=== PATIENT | male | born 1975 | race Caucasian/White ===

== ENCOUNTER 2022-06-11 18:49 | Emergency (ER) | payer SELFPAY ==
[2022-06-11 18:53] VITALS: BP 160/98; PULSE 76; RESP 18; TEMP 36.5; O2SAT 100
[2022-06-11 19:10] LABS: Basophils Percent Auto 0.7 % (0.2-1.2); Eosinophils Absolute Auto 0.1 K/mm3 (0-0.3); Eosinophils Percent Auto 1.1 % (0-4.4); Hematocrit 55.3 % (42.0-52.0); Hemoglobin 19.1 g/dL (14.0-18.0); Immature Granulocyte Absolute 0.01 K/mm3 (0.00-0.031); Immature Granulocyte Percent A 0.2 % (0-0.5); Lymphocytes Absolute Auto 1.72 K/mm3 (0.9-3.2); Lymphocytes Percent Auto 30.4 % (18.3-44.2); Mean Corpuscular HGB Conc 34.5 g/dl (32-36); Mean Corpuscular Hemoglobin 35.6 pg (26-34); Monocytes Absolute Auto 0.6 K/mm3 (0.1-0.6); Neutrophils Absolute Auto 3.2 K/mm3 (1.3-6.7); Neutrophils Percent Auto 56.6 % (45.5-73.1); Platelet Count Result 157 k/mm3 (150-375); Red Blood Count 5.37 M/mm3 (4.6-6.20); White Blood Count 5.7 K/mm3 (4.5-10.0)
[2022-06-11 19:20] LABS: Alanine Aminotransferase 138 U/L (6-50); Albumin Level 4.8 g/dL (3.5-5.1); Alkaline Phosphatase 128 U/L (38-126); Anion Gap 13 mmol/L (8-16); Aspartate Amino Transferase 136 U/L (17-59); Bilirubin,Total 1.9 mg/dL (0.2-1.3); Blood Urea Nitrogen 6 mg/dL (9-20); Carbon Dioxide 25 mmol/L (22-30); Chloride 97 mmol/L (98-107); Estimated CRCL calculation 89 ml/min; Estimated Glomerular Filt Rate > 60; Glucose 107 mg/dL (65-110); Lipase 54 U/L (23-300); Sodium 135 mmol/L (137-145)
--- NOTE | 2022-06-11 20:26 | PC.NURSE ---
Pt ambulatory to intake desk without difficulty and states he will just come back tomorrow . Speech clear. No s/s of distress. Seen exiting ED toward parking lot with steady, even, unassisted gait.
== END 2022-06-11 20:26 | disposition left against medical advice (07) ==
PROVIDERS: Emergency Provider Emergency Medicine
DX: R10.9 Unspecified abdominal pain (principal)
CPT/HCPCS: 36415; 80053; 83690; 85025; 99199

== ENCOUNTER 2022-06-12 15:41 | Emergency (ER) | payer BC, SELFPAY ==
--- NOTE | ~2022-06-12 | CT_ITS ---
EXAMINATION: CT abdomen pelvis w con DATE: 06/12/2022 17:53 INDICATION: Abdominal pain TECHNIQUE: Computed tomography (CT) of the abdomen and pelvis was performed with 100 CC Omnipaque 350 intravenous contrast. Automated exposure control and iterative reconstruction technique were employe d. Exam dose: 436.24 mGy-cm total exam DLP. COMPARISON: None. FINDINGS: The lung bases are clear. Normal heart size. No pericardial or pleural effusion. Diffuse hepatic steatosis. No hepatic space-occupying mass lesion. The gallbladder is present. No gal lbladder wall thickening or pericholecystic fluid or fat stranding. No bile duct or pancreatic duct d ilatation. No pancreatic mass lesion or calcification. Normal splenic size. Normal morphology of the adrenal glands. Very small lower pole right renal cortical cyst. Otherwise no renal mass lesion or urinary tract calc ulus or hydroureteronephrosis. There is moderate prostate enlargement and mild calcification. There is mild to moderate diffuse thic kening of the urinary bladder wall. Normal appendix. No bowel obstruction or intraperitoneal free air. Normal caliber of the abdominal aorta. No intraperitoneal or retroperitoneal or pelvic mass lesion or adenopathy or ascites. Status post anterior and interbody surgical spinal fusion from L3-S1. No suspicious osteolytic or osteoblastic lesions are noted. IMPRESSION: Hepatic steatosis Very small lower pole right renal cortical cyst Normal appendix Moderate prostate enlargement and calcification with associated mild to moderate thickening of the ur inary bladder wall, likely due to outlet obstruction from prostatomegaly Status post anterior and interbody surgical spinal fusion from L3-S1 Reviewed, dictated and finalized at [facility]. Reviewed, dictated and finalized at location [facility]. IMPRESSION: Hepatic steatosis Very small lower pole right renal cortical cyst Normal appendix Moderate prostate enlargement and calcification with associated mild to moderat e thickening of the urinary bladder wall, likely due to outlet obstruction from prostatomegaly Status post anterior and interbody surgical spinal fusion from L3-S1
[2022-06-12 15:43] VITALS: BP 174/99; PULSE 69; RESP 16; TEMP 36.5; O2SAT 100
[2022-06-12 16:04] VITALS: BP 156/113; PULSE 72; RESP 20; O2SAT 99
--- NOTE | 2022-06-12 16:14 | ED.ABDPAIN ---
HPI - Abdominal Pain General Chief Complaint: Abdominal Pain Stated Complaint: abd pain n/v/d, brown, sore throat, cough, fatigue Time Seen by Provider: 06/12/22 16:02 History of Present Illness HPI narrative: 47-year-old male presents to the emergency room for evaluation of generalized abdominal pain with nonbilious nonbloody vomiting and diarrhea for 2 weeks. Patient states that he was seen at an outside emergency room 10 days ago where he was diagnosed with gastroenteritis. Patient's been taking [id number] antidiarrheals, continues to have loose stools around them. Patient is also complaining of a generalized malaise and headaches. Denies any blood in his stool. Denies fever Related Data Home Medications Medication Instructions Recorded Confirmed albuterol 90 mcg/actuation aerosol 90 mcg inhalation TID 06/12/22 06/12/22 inhaler alprazolam 0.5 mg tablet 0.5 mg PO TID 06/12/22 06/12/22 dicyclomine 10 mg capsule 10 mg PO PRN PRN Cramps 06/12/22 06/12/22 Allergies Allergy/AdvReac Type Severity Reaction Status Date / Time No Known Allergies Allergy Verified 06/12/22 15:50 Review of Systems Review of Systems: CONSTITUTIONAL: Denies fever, chills, or sweats. EYES: Denies visual changes, redness, or discharge. ENT: Denies rhinorrhea, congestion, sore throat, or otalgia. CARDIOVASCULAR: Denies chest pain, palpitations, or edema. RESPIRATORY: Denies cough or dyspnea. GASTROINTESTINAL: Reports abdominal pain, nausea, vomiting, and diarrhea. GENITOURINARY: Denies dysuria or hematuria. SKIN: Denies rash or itching. MUSCULOSKELETAL: Denies back pain, joint pain, or myalgia. NEUROLOGIC: Denies headache, numbness, dizziness, or weakness. PSYCHIATRIC: Denies anxiety or depression. Exam Narrative: GENERAL: Well-appearing, well-nourished, no physical limitations, and in no acute distress. HEAD: Normocephalic, atraumatic. EYES: Conjunctivae normal, PERRLA and EOMI. CHEST: Clear to auscultation. No respiratory distress. No wheezes rales or rhonchi. No tenderness. HEART: Regular rate and rhythm. No murmur heard. Normal peripheral pulses. ABDOMEN: Soft, upper abdominal tenderness, nondistended, normal active bowel sounds. BACK: No CVA tenderness EXTREMITIES: Normal range of motion. No edema. No clubbing or cyanosis SKIN: Warm, dry, no rash. No noted wounds NEURO: No focal deficits. Alert and oriented x3. MAEW. CN's II-XI intact bilaterally, normal gait PSYCH: Cooperative. Normal mood and affect. Course Vital Signs Vital signs: Vital Signs Temperature 36.5 C 06/12/22 15:43 Pulse Rate 69 06/12/22 15:43 Respiratory Rate 16 06/12/22 15:43 Blood Pressure 174/99 H 06/12/22 15:43 Pulse Oximetry 100 06/12/22 15:43 Oxygen Delivery Room Air 06/12/22 15:43 Temperature 36.5 C 06/12/22 15:43 Pulse Rate 90 06/12/22 17:16 Respiratory Rate 18 06/12/22 17:16 Blood Pressure 154/111 H 06/12/22 17:16 Pulse Oximetry 99 06/12/22 17:16 Oxygen Delivery Room Air 06/12/22 15:43 MDM - Abdominal Pain Lab Data Result diagrams: 06/12/22 16:21 06/12/22 17:05 Labs: Lab Results 06/12/22 06/12/22 06/12/22 Range/Units 16:01 16:21 17:05 WBC 5.4 (4.5-10.0) K/mm3 RBC 5.20 (4.6-6.20) M/mm3 Hgb 18.3 H (14.0-18.0) g/dL Hct 53.4 H (42.0-52.0) % MCV 102.7 H (80-100) fl MCH 35.2 H (26-34) pg MCHC 34.3 (32-36) g/dl RDW 13.7 (11.5-14.5) % Plt Count 144 L (150-375) k/mm3 MPV 10.8 H (7.4-10.4) fl Immature Gran % (Auto) 0.4 (0-0.5) % Neut % (Auto) 69.2 (45.5-73.1) % Lymph % (Auto) 19.0 (18.3-44.2) % Baldwin % (Auto) 8.5 (2.6-8.5) % Eos % (Auto) 2.2 (0-4.4) % Baso % (Auto) 0.7 (0.2-1.2) % Lymph # (Auto) 1.03 (0.9-3.2) K/mm3 Baldwin # (Auto) 0.5 (0.1-0.6) K/mm3 Eos # (Auto) 0.1 (0-0.3) K/mm3 Baso # (Auto) 0.0 (0.0-0.1) K/mm3 Abs Immat Gran (auto) 0.02 (0.00-0.031) K/mm3 Absolute
[2022-06-12 16:18] LABS: Appearance Urine Slightly Cloudy (Clear); Bilirubin Urine 2+ (Negative); Blood Urine Negative (Negative); Glucose Urine UA Negative (Negative); Ketones Urine Trace mg/dL (Negative); Leukocyte Esterase Ur Negative LEU/UL (Negative); Nitrate Urine Positive (Negative); Protein Urine Negative (Negative)
[2022-06-12] MEDS: SODIUM CHLORIDE 0.9% IV 1,000 ML 999 ML IV CONT (16:20)
[2022-06-12] MEDS: DICYCLOMINE HCL INJ 20 MG/2 ML VIAL IM (16:20)
[2022-06-12] MEDS: ONDANSETRON INJ 4 MG/2 ML VIAL IV PUSH (16:20)
[2022-06-12 16:21] LABS: Mucus Urine Heavy /lpf; Squamous Epithelial Cell Urine Occasional /hpf (Few); WBC Urine 0-3 /hpf
[2022-06-12 16:23] LABS: Add Urine Microscopic? YES; Color Urine Dark Yellow (Yellow)
[2022-06-12 16:48] LABS: Basophils Percent Auto 0.7 % (0.2-1.2); Eosinophils Absolute Auto 0.1 K/mm3 (0-0.3); Eosinophils Percent Auto 2.2 % (0-4.4); Hematocrit 53.4 % (42.0-52.0); Hemoglobin 18.3 g/dL (14.0-18.0); Immature Granulocyte Absolute 0.02 K/mm3 (0.00-0.031); Immature Granulocyte Percent A 0.4 % (0-0.5); Lymphocytes Absolute Auto 1.03 K/mm3 (0.9-3.2); Mean Corpuscular HGB Conc 34.3 g/dl (32-36); Mean Corpuscular Hemoglobin 35.2 pg (26-34); Mean Corpuscular Volume 102.7 fl (80-100); Mean Platelet Volume 10.8 fl (7.4-10.4); Monocytes Absolute Auto 0.5 K/mm3 (0.1-0.6); Monocytes Percent Auto 8.5 % (2.6-8.5); Neutrophils Absolute Auto 3.8 K/mm3 (1.3-6.7); Neutrophils Percent Auto 69.2 % (45.5-73.1); Platelet Count Result 144 k/mm3 (150-375); Red Cell Distribution Width 13.7 % (11.5-14.5); White Blood Count 5.4 K/mm3 (4.5-10.0)
[2022-06-12 17:16] VITALS: BP 154/111; PULSE 90; RESP 18; O2SAT 99
[2022-06-12 17:23] VITALS: BP 145/98; O2SAT 97
[2022-06-12 17:30] LABS: Alanine Aminotransferase 91 U/L (6-50); Alkaline Phosphatase 90 U/L (38-126); Anion Gap 8 mmol/L (8-16); Aspartate Amino Transferase 81 U/L (17-59); Bilirubin,Total 1.4 mg/dL (0.2-1.3); Blood Urea Nitrogen 9 mg/dL (9-20); Carbon Dioxide 28 mmol/L (22-30); Chloride 97 mmol/L (98-107); Estimated CRCL calculation 81 ml/min; Estimated Glomerular Filt Rate > 60; Glucose 104 mg/dL (65-110); Lipase 42 U/L (23-300); Potassium 4.3 mmol/L (3.4-5.0); Sodium 133 mmol/L (137-145)
[2022-06-12 17:32] VITALS: BP 141/99; O2SAT 97
[2022-06-12 18:53] VITALS: O2SAT 97
[2022-06-12 18:57] LABS: Prostate Specific Antigen 0.9 ng/mL (< OR = 4.0)
== END 2022-06-12 19:03 | disposition home or self-care (01) ==
PROVIDERS: Family Medicine; Emergency Provider Nurse Practitioner Family
DX: R19.7 Diarrhea, unspecified (principal); N39.0 Urinary tract infection, site not specified; N40.0 Benign prostatic hyperplasia without lower urinary tract symptoms
CPT/HCPCS: 36415; 74177; 80053; 81001; 83690; 84153; 85025; 96361; 96372; 96374; 99284; J0500; J2405; J7030; Q9967

== ENCOUNTER 2022-08-08 17:35 | Emergency (ER) | payer BC, SELFPAY ==
[2022-08-08 17:48] VITALS: BP 145/102; PULSE 98; RESP 16; TEMP 37.3; O2SAT 97
--- NOTE | 2022-08-08 18:24 | ED.SKABFB ---
HPI - Skin/Abscess/Foreign Bdy General Chief complaint: Skin/Abscess/Foreign Body Stated complaint: rash on back legs Time Seen by Provider: 08/08/22 17:55 Source: patient, RN notes reviewed and old records reviewed Mode of arrival: ambulatory Limitations: no limitations History of Present Illness HPI narrative: 47-year-old male who presents to [facility] care with complaints of rash to the back of his legs bilaterally after playing disc ball in [place] last Saturday. Patient has red raised rash which is irritated and itching and burning has some small vesicles noted in rash and weeping. Patient has not taken any OTC medications for his symptoms. MD complaint: rash Onset (ago): day(s) (3) Severity scale (1-10): 7 Related Data Home Medications Medication Instructions Recorded Confirmed albuterol 90 mcg/actuation aerosol 90 mcg inhalation TID 06/12/22 08/08/22 inhaler alprazolam 0.5 mg tablet 0.5 mg PO TID 06/12/22 08/08/22 lisinopril 10 mg tablet 10 mg PO DAILY 08/08/22 08/08/22 Allergies Allergy/AdvReac Type Severity Reaction Status Date / Time No Known Allergies Allergy Verified 08/08/22 17:55 Review of Systems Review of Systems: CONSTITUTIONAL: Denies fever, chills, or sweats. CARDIOVASCULAR: Denies chest pain, palpitations, or edema. RESPIRATORY: Denies cough or dyspnea. SKIN: Reports red rash to behind knees and onto the posterior aspects of the thighs which he stated itching MUSCULOSKELETAL: Denies joint pain or myalgia. NEUROLOGIC: Denies headache, numbness, or weakness. All systems reviewed & are unremarkable except as noted in HPI and below PMFSH Past Medical History Medical History (Updated 08/09/22 @ 08:14 by Madisyn Johnson NP) Anxiety Social History Social History (Updated 08/09/22 @ 08:14 by Madisyn Johnson NP) Smoking packs per day: 0.5 Smoking cigarettes per day: 10.0 Years smoked: 25 Smoking pack-years: 12.50 Smoking status: Current every day smoker Alcohol intake: current Alcohol use details: social Substance use type: does not use Living arrangements: with family Gender identity (if verbalized by the patient): Male Comments At time of signature, agree with nursing past medical, surgical, social and family history. There is no relevant family history pertinent to the presenting complaint Exam Narrative: GENERAL: Well-appearing, well-nourished, and in no acute distress. HEAD: Normocephalic, atraumatic. EYES: PERRLA, conjunctivae clear, and EOMI. ENT: Mucous membranes moist. Oropharynx without edema, erythema or lesions. NECK: Supple. No lymphadenopathy CHEST: Clear to auscultation. No respiratory distress.SAO2 98% on room air HEART: Regular rate and rhythm. SKIN: Warm, dry.? Patches of erythema and edema small vesicles noted to rash behind his knees and on posteior thighs NEURO:? Alert and oriented x3. PSYCH: Normal mood and affect Course Course Emergency Course: Patient is aware of diagnosis, understands and agrees to treatment plan.? Anticipatory guidance given.? Patient agrees to follow-up as directed and is aware of reasons to seek care at the emergency department. Portions of this record may have been created with voice recognition software Level of Care: Express Care Visit Vital Signs Vital signs: Vital Signs Temperature 37.3 C 08/08/22 17:48 Pulse Rate 98 08/08/22 17:48 Respiratory Rate 16 08/08/22 17:48 Blood Pressure 145/102 H 08/08/22 17:48 Pulse Oximetry 97 08/08/22 17:48 Temperature 37.3 C 08/08/22 17:48 Pulse Rate 82 08/08/22 18:35 Respiratory Rate 16 08/08/22 18:35 Blood Pressure 145/98 H 08/08/22 18:35 Pulse Oximetry 98 08/08/22 18:35 Oxygen Delivery Room Air 08/08/22 18:35 Reviewed MDM - Skin/Abscess/Foreign Bdy MDM Narrative Medical decision making narrative: Does not appear at this time to be erythema multiforme, bullous, SJS, TEN; no evidence at this time to sugge
[2022-08-08 18:35] VITALS: BP 145/98; PULSE 82; RESP 16; O2SAT 98
== END 2022-08-08 18:35 | disposition home or self-care (01) ==
PROVIDERS: Emergency Provider Registered Nurse
DX: L25.9 Unspecified contact dermatitis, unspecified cause (principal); F17.210 Nicotine dependence, cigarettes, uncomplicated; F41.9 Anxiety disorder, unspecified
CPT/HCPCS: 99213; G0463

== ENCOUNTER 2023-02-23 11:53 | Emergency (ER) | payer BC, SELFPAY ==
--- NOTE | ~2023-02-23 | XR_ITS ---
EXAMINATION: XR tibia fibula LT 2V INDICATION: Left leg pain TECHNIQUE: Two views of the left tibia and fibula are obtained on three radiographs. COMPARISON: None available FINDINGS: Bone alignment is normal. There is no acute fracture. There is mild anterior soft tissue sw elling of the leg. There appears to be an old fracture of the lateral malleolus. IMPRESSION: 1. No acute osseous abnormality. Reviewed, dictated and finalized at location A.
--- NOTE | 2023-02-23 11:56 | ED.LOWEXIN ---
HPI - Extremity Injury (Lower) General Chief Complaint: Extremity Injury, Lower Stated Complaint: INJURED L LEG Time Seen by Provider: 02/23/23 11:56 Source: patient Mode of arrival: ambulatory Limitations: no limitations History of Present Illness HPI Narrative: Tyree is a 47-year-old male patient presenting to the clinic today with complaints of a left leg injury. He reports he was playing Frisbee on Saturday and slipped and fell down a storm drain. Has abrasion/infected wound to the left lateral leg with redness going into the ankle. Has tenderness to palpation over the ankle. Does have some old bruising to the left heel without tenderness. Left distal leg is swollen and painful. He denies any fever chills Related Data Home Medications Medication Instructions Recorded Confirmed albuterol 90 mcg/actuation aerosol 90 mcg inhalation TID 06/12/22 02/23/23 inhaler alprazolam 0.5 mg tablet 0.5 mg PO TID 06/12/22 02/23/23 lisinopril 10 mg tablet 10 mg PO DAILY 08/08/22 02/23/23 Allergies Allergy/AdvReac Type Severity Reaction Status Date / Time No Known Allergies Allergy Verified 02/23/23 12:12 Review of Systems Review of Systems: Pertinent positives per HPI. Patient denies any fever, chills, rash, headache, visual changes, dizziness, cough, runny nose, sore throat, shortness of breath, chest pain, palpitations, nausea, vomiting, diarrhea, constipation, abdominal pain, or any urinary issues. [facility] Past Medical History Medical History Anxiety Social History Social History Smoking packs per day: 0.5 Smoking cigarettes per day: 10.0 Years smoked: 25 Smoking pack-years: 12.50 Smoking status: Current every day smoker Alcohol intake: current Alcohol use details: social Substance use type: does not use Living arrangements: with family Gender identity (if verbalized by the patient): Male Comments At the time of my signature, I reviewed and agree with the nursing past medical, surgical, social, and family history. There is no relevant family history pertinent to the patient complaint. Exam Narrative: General: Well-developed, well nourished, in no apparent distress Head: Normocephalic, atraumatic. Cardio: Regular rate and rhythm, s1 and s2 normal, no murmur appreciated. Resp: Clear to auscultation bilaterally, no rhonchi, rales, wheezing or rubs. Musculoskeletal: No deformity, 8 x 6 cm abrasion with redness and swelling, tender to palpation over wound and also over the lateral left ankle, old settling bruising noted to the left lateral heel, grossly normal range of motion, muscle strength strong and equal, peripheral pulse strong, no cyanosis, normal gait and station Course Course Emergency Course: Portions of this record may have been created with voice recognition software. Level of Care: Express Care Visit Vital Signs Vital signs: Vital Signs Temperature 37.2 C 02/23/23 12:06 Pulse Rate 110 H 02/23/23 12:06 Respiratory Rate 16 02/23/23 12:06 Blood Pressure 116/98 H 02/23/23 12:06 Pulse Oximetry 99 02/23/23 12:06 Temperature 37.2 C 02/23/23 12:06 Pulse Rate 110 H 02/23/23 12:06 Respiratory Rate 16 02/23/23 12:06 Blood Pressure 116/98 H 02/23/23 12:06 Pulse Oximetry 99 02/23/23 12:06 Vital signs reviewed MDM - Extremity Injury (Lower) MDM Narrative Medical decision making narrative: At the time of visit patient is resting comfortably on the exam table. X-ray of the left tib-fib is negative for any fracture. Does have an old-appearing fracture over the lateral malleolus. Tdap injection given in the clinic today. I suspect patient has a wound infection with cellulitis. Will send in prescription for clindamycin. Supportive measures were discussed with the patient he voiced understanding discharge instructions agrees to treatme
[2023-02-23 12:06] VITALS: BP 116/98; PULSE 110; RESP 16; TEMP 37.2; O2SAT 99
[2023-02-23] MEDS: TETANUS,DIPHTHERIA,AC PERTUSSIS ADULT (0.5 ML) BOOSTRIX IM (12:48)
== END 2023-02-23 13:03 | disposition home or self-care (01) ==
PROVIDERS: Emergency Provider Nurse Practitioner Family
DX: S80.812A Abrasion, left lower leg, initial encounter (principal); L03.116 Cellulitis of left lower limb; W17.1XXA Fall into storm drain or manhole, initial encounter; Y93.74 Activity, frisbee; Z23 Encounter for immunization; F41.9 Anxiety disorder, unspecified; F17.210 Nicotine dependence, cigarettes, uncomplicated
CPT/HCPCS: 73590; 90471; 90715; 99213; G0463

== ENCOUNTER 2023-02-25 12:21 | Observation (INO) | payer BC, SELFPAY ==
[2023-02-25] VITALS (9 sets, daily range): BP systolic 116–139; BP diastolic 75–101; PULSE 70–110; RESP 14–20; TEMP 36.1–37.2; O2SAT 94–100; BMI 25.1
--- NOTE | ~2023-02-25 | XR_ITS ---
EXAM: XR tibia fibula LT 2V, XR foot LT min 3V DATE: 02/26/2023 14:02 HISTORY: Trauma, increased pain . COMPARISON: 02/23/2023. FINDINGS: Normal mineralization. No acute fracture or dislocation. No lytic or blastic lesion. Ossif ic fragment at the tip of the lateral malleolus, without significant overlying soft tissue swelling, likely old avulsion fracture. Joint spaces are maintained. No erosion or periosteal change. Soft tiss ues within normal limits. IMPRESSION: No acute osseous finding in the left tibia, fibula, or foot. Reviewed, dictated and finalized at location K. IMPRESSION: No acute osseous finding in the left tibia, fibula, or foot.
--- NOTE | ~2023-02-25 | US_ITS ---
EXAMINATION: US venous doppler [facility] DATE: 02/25/2023 14:10 INDICATION: Lower limb swelling and redness TECHNIQUE: Huang scale images without and with compression and Doppler images of the left lower extrem ity veins were obtained. COMPARISON: None FINDINGS: The left common femoral vein, profunda femoral vein, femoral vein, popliteal vein, peroneal trunk, posterior tibial veins, and greater saphenous vein are patent. IMPRESSION: 1. Patent left lower extremity veins. No evidence of deep venous thrombosis. Reviewed, dictated and finalized at location B.
--- NOTE | ~2023-02-25 | MR_ITS ---
MRI of the left ankle Clinical history: Osteomyelitis, abscess Technique: Coronal proton-density and proton-density fat-sat images, axial proton-density and proton- density fat-sat images, and sagittal proton-density and proton-density fat-sat images were acquired. Following intravenous administration of 15 cc MultiHance gadolinium, T1-weighted fat-sat imaging was performed in the axial, coronal, and sagittal planes. Findings: Syndesmotic ligaments are intact. Anterior and posterior talofibular ligaments appear intac t. Calcaneofibular ligament is intact. Deltoid ligament is intact. Medial flexor tendons, peroneal tendons, anterior extensor tendons, and Achilles tendon are intact. No osteochondral lesion of the talar dome. Bone marrow signals are unremarkable. Joint spaces are pre served. No significant joint effusion. Plantar fascia is intact. There is extensive nonspecific edema in Hoffa's fat pad. There is also subc utaneous soft tissue edema about the lateral aspect of the ankle. No suspicious postcontrast enhancement seen. Impression: Nonspecific soft tissue edema throughout Hoffa's fat pad and in the lateral subcutaneous soft tissues . No abscess or focal fluid collection evident. No evidence for osteomyelitis. Reviewed, dictated and finalized at [facility]. Impression: Nonspecific soft tissue edema throughout Hoffa's fat pad and in the lateral sub cutaneous soft tissues. No abscess or focal fluid collection evident. No evidence for osteomyelitis.
[2023-02-25 13:48] LABS: Basophils Absolute Auto 0.1 K/mm3 (0.0-0.1); Basophils Percent Auto 0.9 % (0.2-1.2); Eosinophils Absolute Auto 0.1 K/mm3 (0-0.3); Eosinophils Percent Auto 1.6 % (0-4.4); Hematocrit 43.3 % (42.0-52.0); Hemoglobin 15.6 g/dL (14.0-18.0); Immature Granulocyte Absolute 0.02 K/mm3 (0.00-0.031); Immature Granulocyte Percent A 0.4 % (0-0.5); Lymphocytes Absolute Auto 1.34 K/mm3 (0.9-3.2); Lymphocytes Percent Auto 23.5 % (18.3-44.2); Mean Corpuscular Hemoglobin 35.8 pg (26-34); Mean Corpuscular Volume 99.3 fl (80-100); Mean Platelet Volume 10.1 fl (7.4-10.4); Monocytes Absolute Auto 0.7 K/mm3 (0.1-0.6); Monocytes Percent Auto 12.1 % (2.6-8.5); Neutrophils Absolute Auto 3.5 K/mm3 (1.3-6.7); Neutrophils Percent Auto 61.5 % (45.5-73.1); Platelet Count Result 171 k/mm3 (150-375); Red Blood Count 4.36 M/mm3 (4.6-6.20); Red Cell Distribution Width 13.7 % (11.5-14.5); White Blood Count 5.7 K/mm3 (4.5-10.0)
[2023-02-25 13:56] LABS: Lactic Acid Reflex 1.5 mmol/L (0.7-2.0)
[2023-02-25 13:57] LABS: Alanine Aminotransferase 88 U/L (6-50); Albumin Level 4.2 g/dL (3.5-5.1); Alkaline Phosphatase 126 U/L (38-126); Anion Gap 5 mmol/L (8-16); Aspartate Amino Transferase 105 U/L (17-59); Bilirubin,Total 1.3 mg/dL (0.2-1.3); Blood Urea Nitrogen 10 mg/dL (9-20); Calcium 8.9 mg/dL (8.4-10.2); Carbon Dioxide 29 mmol/L (22-30); Chloride 100 mmol/L (98-107); Estimated CRCL calculation 99 ml/min; Estimated Glomerular Filt Rate > 60; Glucose 97 mg/dL (65-110); Potassium 3.6 mmol/L (3.4-5.0); Sodium 134 mmol/L (137-145)
[2023-02-25] MEDS: SODIUM CHLORIDE 0.9% IV 1,000 ML 999 ML IV CONT (14:19)
[2023-02-25] MEDS: KETOROLAC 15 MG/ML VIAL (*BKC) IV PUSH ×2 (14:19→21:16)
--- NOTE | 2023-02-25 14:28 | ED.LOWEXIN ---
HPI - Extremity Injury (Lower) General Chief Complaint: Extremity Injury, Lower Stated Complaint: infection to left leg Time Seen by Provider: 02/25/23 13:24 History of Present Illness HPI Narrative: Patient is a 47-year-old male presenting with left lower extremity pain. Patient states that approximately 9 days ago he sustained an injury to his left lower extremity. States that he has a large abrasion. States that he went to urgent care and x-rays were done which showed no fractures. Patient states that the wound has been slow to heal. States that he went back to urgent care over the weekend due to spreading redness and he was started on clindamycin. States that he has been taking it as prescribed and trying to elevate his extremity is much as possible. States that unfortunately the redness continues to spread and his pain continues to worsen. He was advised to come to the ER if his symptoms worsened so he came in for evaluation. He denies fevers, headache, chest pain, shortness of breath, cough, abdominal pain, vomiting, diarrhea, dysuria Related Data Home Medications Medication Instructions Recorded Confirmed albuterol 90 mcg/actuation aerosol 90 mcg inhalation TID PRN 06/12/22 02/25/23 inhaler Shortness Of Breath alprazolam 0.5 mg tablet 0.5 mg PO TID PRN Anxiety 06/12/22 02/25/23 lisinopril 10 mg tablet 10 mg PO DAILY 08/08/22 02/25/23 Allergies Allergy/AdvReac Type Severity Reaction Status Date / Time No Known Allergies Allergy Verified 02/25/23 12:58 Review of Systems Review of Systems: All systems reviewed & are unremarkable except as noted in HPI and below PMFSH Past Medical History Medical History (Updated 02/28/23 @ 21:48 by Iris Mg MD) Anxiety Asthma Hepatic steatosis Noted on CT scan 06/2022 Hypertension Tobacco abuse Surgical History Surgical History (Updated 02/26/23 @ 00:55 by Linda Pitts NP) H/O knee surgery H/O spinal fusion Family History Family History (Updated 02/26/23 @ 00:56 by Linda Pitts NP) Unknown No problems noted. Other Unknown family medical history Social History Social History (Updated 02/26/23 @ 00:57 by Linda Pitts NP) Social History: The patient lives with his significant other. He has 4 children. 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 Code status full code Smoking packs per day: 1 Smoking cigarettes per day: 20.0 Years smoked: 30 Smoking pack-years: 30.00 Smoking status: Current every day smoker Tobacco type: cigarettes Alcohol intake: current Drinks per week: 20 Alcohol use details: social Substance use: current Substance use type: marijuana Lack of Transportation: No Lack of Food: Never True Current Housing: I Have Housing Concerned About Future Housing: No Difficulty Paying Gas/Electric Bills: No Difficulty Paying for Meds: No Currently Unemployed: No Education: Associate Degree Difficulty w/ Childcare or Family Care: No Living arrangements: with family Gender identity (if verbalized by the patient): Male Spiritual care concerns: No Exam Narrative: GENERAL: nontoxic, in no acute distress, pleasant and cooperative HEAD: Normocephalic, atraumatic. EYES: PERRLA and EOMI. ENT: Nares clear, no rhinorrhea or epistaxis. Mucous membranes moist. NECK: Supple. CHEST: Clear to auscultation. No respiratory distress. HEART: Regular rate and rhythm. Normal peripheral pulses. ABDOMEN: Soft, nontender, nondistended EXTREMITIES: Normal range of motion. No edema. SKIN: 4 x 3 cm abrasion lateral left lower extremity with surrounding erythema and tenderness, no fluctuance, no crepitus; erythema does appear to be extending down to his foot NEURO: No focal deficits. Alert and oriented x3. PSYCH: Normal mood and affect. Course Vital Signs Vital signs: Vital Signs Temperature 98.9 F 02/25/23 12:23 Pulse Rate 110 H 02/25/23 12:23 Respiratory Rate 18 0
--- NOTE | 2023-02-25 17:08 | ADMGEN ---
This patient, Tyree Rodriguez, was admitted to [facility] Surg Room 330-02. Patient/family oriented to hospital policies and general routines including ID bracelet, bed and alarms, visiting hours, pain management, procedures, bathroom and other care routines, personal items, smoking policy, room service/diet, and visiting hours. Information on how to activate the Rapid Response Team has been discussed. Patient/Family are encouraged to report perceived risks to care and to ask questions if they do not understand what they are told or what they should do.
[2023-02-25] MEDS: fentaNYL CITRATE INJ (*CRX) 100 MCG/2 ML VIAL 25 MCG IV PUSH (18:39)
--- NOTE | 2023-02-25 20:28 | PM.IMHP ---
H&P: HPI History of Present Illness Date/Time: 02/25/23 20:28 Chief Complaint: Infection to lower extremity Narrative: This is a 47-year-old male patient came to the emergency room with left lower extremity pain. The patient stated that he had an injury proximally 9 days ago when he was playing outside with his kids the patient stepped into a when he called the manhole. He abraded his left outer lower extremity leg. The patient stated that he went to urgent care and x-rays were performed at that time and he was told that he has no fractures. The patient stated that he was cleaning it every day and putting a triple antibiotic on it and wrapping it. The patient stated that he left the dressing on for several days. The patient stated that his wound has been slow to heal. The patient went back to urgent care over the weekend because the redness was increasing and at that time the patient was started on a on clindamycin. The patient has been taking the prescribed antibiotics and elevating his left lower extremity. The redness continued and the pain continued to get worse. The patient was advised to go to the emergency room if his symptoms were worse. His symptoms are worse with ambulating. The patient stated that his left outer foot is now bruise and the bruising was not initially there. Resting the foot helps some but he has tenderness to the lower extremity. Patient denies any fever chills. The patient was given IV fluids, Toradol, Tylenol, vancomycin and Rocephin. His white count is normal. Sodium is slightly low at 134. The patient is being admitted to observation status on the date of service of 02/25/2023. Review of Systems Review of Systems: All systems reviewed & are unremarkable except as noted in HPI and below Constitutional: Constitutional: Reports as per HPI and Reports no additional constitutional complaints Eyes: Eyes: Reports as per HPI and Reports no additional eye complaints ENT: Reports system reviewed and no additional complaints, except as documented and Reports Normal hearing present Cardiovascular: Cardiovascular: Reports no additional cardiovascular complaints Respiratory: Respiratory: Reports no additional respiratory complaints and Reports no additional respiratory complaints Gastrointestinal: Gastrointestinal: Reports as per HPI and Reports no additional gastrointestinal complaints Musculoskeletal: Musculoskeletal: Reports no additional musculoskeletal complaints Integumentary/Breasts: Skin/Breast: Reports system reviewed and no additional complaints, except as docu and Reports as per HPI Neurologic: Reports system reviewed and no additional complaints, except as documented, Reports as per HPI and Reports Normal hearing present Psychiatric: Psychiatric: Reports no additional psychiatric complaints and Reports as per HPI Endocrine: Endocrine: Reports no additional endocrine complaints Hematologic/Lymphatic: Hematologic/Lymphatic: Reports no additional hematologic/lymphatic complaints Allergic/Immunologic: Allergic/Immunologic: Reports no additional allergic/immunologic complaints [facility] Past Medical History Medical History (Updated 02/26/23 @ 01:06 by Linda Pitts NP) Anxiety Asthma Hypertension Tobacco abuse Surgical History Surgical History (Updated 02/26/23 @ 00:55 by Linda Pitts NP) H/O knee surgery H/O spinal fusion Family History Family History (Updated 02/26/23 @ 00:56 by Linda Pitts NP) Unknown No problems noted. Other Unknown family medical history Social History Social History (Updated 02/26/23 @ 00:57 by Linda Pitts NP) Social History: The patient lives with his significant other. He has 4 children. 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 Code status full code Smoking packs per day: 1 Smoking cigarettes per day: 20.0 Years smoked: 30 Smoking pack-years: 30.00 Smoking status: Current every day smoker Tobacco type: cigar
[2023-02-26] MEDS: fentaNYL CITRATE INJ (*CRX) 100 MCG/2 ML VIAL 25 MCG IV PUSH ×2 (01:58→07:02)
[2023-02-26 05:57] VITALS: BP 130/92; PULSE 72; RESP 14; TEMP 36.4; O2SAT 98
[2023-02-26 06:35] LABS: Basophils Absolute Auto 0.1 K/mm3 (0.0-0.1); Basophils Percent Auto 0.9 % (0.2-1.2); Eosinophils Absolute Auto 0.1 K/mm3 (0-0.3); Eosinophils Percent Auto 1.8 % (0-4.4); Hematocrit 42.3 % (42.0-52.0); Hemoglobin 14.7 g/dL (14.0-18.0); Immature Granulocyte Absolute 0.03 K/mm3 (0.00-0.031); Immature Granulocyte Percent A 0.5 % (0-0.5); Lymphocytes Absolute Auto 1.26 K/mm3 (0.9-3.2); Lymphocytes Percent Auto 22.5 % (18.3-44.2); Mean Corpuscular HGB Conc 34.8 g/dl (32-36); Mean Corpuscular Hemoglobin 35.9 pg (26-34); Mean Corpuscular Volume 103.2 fl (80-100); Monocytes Absolute Auto 0.6 K/mm3 (0.1-0.6); Monocytes Percent Auto 11.4 % (2.6-8.5); Neutrophils Absolute Auto 3.5 K/mm3 (1.3-6.7); Neutrophils Percent Auto 62.9 % (45.5-73.1); Platelet Count Result 155 k/mm3 (150-375); Red Cell Distribution Width 13.9 % (11.5-14.5); White Blood Count 5.6 K/mm3 (4.5-10.0)
[2023-02-26 06:47] LABS: Alanine Aminotransferase 67 U/L (6-50); Albumin Level 3.8 g/dL (3.5-5.1); Alkaline Phosphatase 99 U/L (38-126); Anion Gap 2 mmol/L (8-16); Aspartate Amino Transferase 66 U/L (17-59); Bilirubin,Total 0.8 mg/dL (0.2-1.3); Blood Urea Nitrogen 14 mg/dL (9-20); Calcium 8.8 mg/dL (8.4-10.2); Carbon Dioxide 30 mmol/L (22-30); Chloride 102 mmol/L (98-107); Estimated CRCL calculation 99 ml/min; Estimated Glomerular Filt Rate > 60; Glucose 101 mg/dL (65-110); Magnesium 1.9 mg/dL (1.6-2.3); Potassium 4.2 mmol/L (3.4-5.0); Sodium 134 mmol/L (137-145)
--- NOTE | 2023-02-26 07:12 | PM.IMPN ---
Progress Note: A&P Assessment and Plan (1) Cellulitis: Qualifiers: Site of cellulitis: extremity Site of cellulitis of extremity: lower extremity Laterality: left Qualified Code(s): L03.116 - Cellulitis of left lower limb Code(s): L03.90 - Cellulitis, unspecified Status: Acute Assessment and Plan: His white count is normal. He was taking clindamycin antibiotic since Saturday prior to admission. He also reported cleaning and using triple antibiotic ointment. Wound appears dry, tender to palpation, and border outlines noted with faint erythema. Continue IV Vancomycin pharmacy to dose and IV Rocephin 2 grams Q24 hours. He denies exposure to stagnant water. Continue analgesics. blood cultures negative to date. He is afebrile. CRP 1.1 and procalcitonin 0.2 (2) Left ankle sprain: Qualifiers: Encounter type: initial encounter Involved ligament of ankle: unspecified ligament Qualified Code(s): S93.402A - Sprain of unspecified ligament of left ankle, initial encounter Code(s): S93.402A - Sprain of unspecified ligament of left ankle, initial encounter Status: Acute Assessment and Plan: Pain, swelling and dependent ecchymosis bilaterally to left ankle. He reported leg injury 9 days ago and hitting his left leg on a manhole. He has been able to bear some weight to his left foot. Repeat imaging does not show acute fractures. Suspect ankle sprain. Add suri wrap, ice compresses, elevation and rest. He was counseled to minimize weight bearing to his left ankle. Consider further imaging, such as MRI, and orthopedic evaluation if worsens. Continue analgesics. (3) Hypertension: Qualifiers: Hypertension type: primary hypertension Qualified Code(s): I10 - Essential (primary) hypertension Code(s): I10 - Essential (primary) hypertension Status: Chronic Assessment and Plan: Vitals reviewed. Continue with lisinopril (4) Asthma: Qualifiers: Asthma severity: mild Asthma persistence: intermittent Asthma complication type: uncomplicated Qualified Code(s): J45.20 - Mild intermittent asthma, uncomplicated Code(s): J45.909 - Unspecified asthma, uncomplicated Status: Chronic Assessment and Plan: Not in acute exacerbation. Continue with albuterol inhaler PRN (5) Anxiety: Code(s): F41.9 - Anxiety disorder, unspecified Status: Chronic Assessment and Plan: Continue with alprazolam 0.5 mg in am and 1 mg at Hs as he takes at home. He reports very stressful job and would likely benefit from SSRI or SNRI for long-term management. We also discussed mindful medications videos and other breathing exercises. (6) Tobacco abuse: Code(s): Z72.0 - Tobacco use Status: Chronic Assessment and Plan: Continue smoking cessation. Nicotine patch ordered. (7) Hepatic steatosis: Code(s): K76.0 - Fatty (change of) liver, not elsewhere classified Status: Chronic Assessment and Plan: AST/ALT elevated on admission and noted to be elevated since 06/2022. CT abd/pelvis at that time showed hepatic steatosis. He reports drinking 6 drinks (beer or vodka mixed drinks every evening and possibly more on weekends. He denies h/o withdrawal or seizures. Likely alcohol fatty liver disease. Hepatitis panel pending. Counseled to avoid alcohol, weight loss and diet. check lipid panel. (8) Heavy alcohol consumption: Code(s): F10.90 - Alcohol use, unspecified, uncomplicated Status: Chronic Assessment and Plan: Heavy alcohol use as above. We discussed recommend amount of intake for males, liver changes already noted on CT scan, as well as risk for liver cirrhosis/failure with continued heavy alcohol use. He was counseled to quit drinking. We discussed stress management techniques. Start CIWA protocol. Add thiamine and folic acid supplements. Time Spent With Patient Time with patient
[2023-02-26 07:51] LABS: CRP 1.1 mg/dL (<1.0); Cholesterol 181 mg/dL (0-200); HDL Direct 65 mg/dL; Triglycerides 76 mg/dL (<150)
[2023-02-26 07:58] LABS: LDL Cholesterol Direct 92 mg/dL
[2023-02-26] MEDS: cefTRIAXone 2 GM/NS 100 ML 2 GM/100 ML BAG IVPB (08:03)
[2023-02-26 08:05] LABS: Procalcitonin 0.2 ng/mL
[2023-02-26] MEDS: NICOTINE (*PBKC) 21 MG PATCH 1 PATCH TRANSDERM (08:05)
[2023-02-26] MEDS: lisinopriL 10 MG TABLET PO (08:13)
[2023-02-26 08:22] LABS: Hepatitis B Surface Antigen Negative (Negative)
[2023-02-26 08:28] LABS: HAV RESULT Negative (Negative); Hepatitis B Core IgM Result Negative (Negative)
[2023-02-26 08:40] LABS: Hepatitis C Virus Antibody Negative (Negative)
[2023-02-26] MEDS: ALPRAZolam (*CRX) 0.5 MG TABLET PO (08:40)
[2023-02-26] MEDS: HYDROcodone/acetaminophen (*CRX) 5-325 MG TABLET 1 TAB PO ×4 (08:40→22:02)
[2023-02-26] MEDS: ENOXAPARIN 40 MG/0.4 ML SYRINGE SUB-Q (12:59)
[2023-02-26 13:51] VITALS: BP 158/97; PULSE 97; RESP 20; TEMP 36.7; O2SAT 98
[2023-02-26] MEDS: THIAMINE HCL 100 MG TABLET PO (16:11)
[2023-02-26] MEDS: FOLIC ACID 1 MG TABLET PO (16:12)
[2023-02-26 18:27] LABS: Glucose Point of Care 138 mg/dl (65-105)
[2023-02-26] MEDS: ALPRAZolam (*CRX) 0.5 MG TABLET 1 MG PO (21:12)
[2023-02-26 21:20] VITALS: BP 112/76; PULSE 84; RESP 16; O2SAT 97
--- NOTE | 2023-02-27 00:36 | PC.NURSE ---
Pt refused 0000 Ciwa check and rounds. Pt stated i just want to sleep man . Does not appear in any distress will cont to monitor
[2023-02-27 04:14] VITALS: BP 136/97; PULSE 78; RESP 16; TEMP 36.6; O2SAT 98
[2023-02-27 05:20] LABS: Glucose Point of Care 130 mg/dl (65-105)
[2023-02-27] MEDS: HYDROcodone/acetaminophen (*CRX) 5-325 MG TABLET 1 TAB PO ×5 (05:33→23:51)
[2023-02-27 05:43] LABS: Vancomycin Trough 19.7 ug/mL (10.0-20.0)
[2023-02-27 06:13] LABS: Basophils Percent Auto 0.6 % (0.2-1.2); Eosinophils Absolute Auto 0.1 K/mm3 (0-0.3); Eosinophils Percent Auto 2.6 % (0-4.4); Hemoglobin 14.4 g/dL (14.0-18.0); Immature Granulocyte Absolute 0.01 K/mm3 (0.00-0.031); Immature Granulocyte Percent A 0.2 % (0-0.5); Lymphocytes Absolute Auto 1.33 K/mm3 (0.9-3.2); Lymphocytes Percent Auto 24.7 % (18.3-44.2); Mean Corpuscular HGB Conc 33.5 g/dl (32-36); Mean Corpuscular Hemoglobin 35.4 pg (26-34); Mean Corpuscular Volume 105.7 fl (80-100); Mean Platelet Volume 10.5 fl (7.4-10.4); Monocytes Absolute Auto 0.6 K/mm3 (0.1-0.6); Monocytes Percent Auto 10.2 % (2.6-8.5); Neutrophils Absolute Auto 3.3 K/mm3 (1.3-6.7); Neutrophils Percent Auto 61.7 % (45.5-73.1); Platelet Count Result 160 k/mm3 (150-375); Red Blood Count 4.07 M/mm3 (4.6-6.20); Red Cell Distribution Width 13.9 % (11.5-14.5); White Blood Count 5.4 K/mm3 (4.5-10.0)
[2023-02-27 06:29] LABS: Alanine Aminotransferase 55 U/L (6-50); Albumin Level 3.7 g/dL (3.5-5.1); Alkaline Phosphatase 92 U/L (38-126); Anion Gap 3 mmol/L (8-16); Aspartate Amino Transferase 54 U/L (17-59); Bilirubin,Total 0.7 mg/dL (0.2-1.3); Blood Urea Nitrogen 11 mg/dL (9-20); Calcium 8.4 mg/dL (8.4-10.2); Carbon Dioxide 29 mmol/L (22-30); Chloride 101 mmol/L (98-107); Estimated CRCL calculation 112 ml/min; Estimated Glomerular Filt Rate > 60; Glucose 119 mg/dL (65-110); Potassium 3.4 mmol/L (3.4-5.0); Sodium 133 mmol/L (137-145)
[2023-02-27] MEDS: ENOXAPARIN 40 MG/0.4 ML SYRINGE SUB-Q (08:38)
[2023-02-27] MEDS: cefTRIAXone 2 GM/NS 100 ML 2 GM/100 ML BAG IVPB (08:38)
[2023-02-27] MEDS: lisinopriL 10 MG TABLET PO (08:38)
[2023-02-27] MEDS: ALPRAZolam (*CRX) 0.5 MG TABLET PO (08:38)
[2023-02-27] MEDS: THIAMINE HCL 100 MG TABLET PO (08:38)
[2023-02-27] MEDS: FOLIC ACID 1 MG TABLET PO (08:38)
[2023-02-27] MEDS: LORazepam INJ (*CRX) 2 MG/ML VIAL IV PUSH (11:52)
[2023-02-27 12:15] LABS: Glucose Point of Care 104 mg/dl (65-105)
[2023-02-27 14:00] VITALS: BP 127/86; PULSE 69; RESP 18; TEMP 36.2; O2SAT 99
--- NOTE | 2023-02-27 15:09 | PM.IMPN ---
Progress Note: A&P Assessment and Plan (1) Cellulitis: Qualifiers: Site of cellulitis: extremity Site of cellulitis of extremity: lower extremity Laterality: left Qualified Code(s): L03.116 - Cellulitis of left lower limb Code(s): L03.90 - Cellulitis, unspecified Status: Acute Assessment and Plan: His white count is normal. He was taking clindamycin antibiotic since Saturday prior to admission. He also reported cleaning and using triple antibiotic ointment. 02/27 wound is draining purulent yellow fliud, tender to palpation, and border outlines noted with faint erythema. Continue IV Vancomycin pharmacy to dose and IV Rocephin 2 grams Q24 hours. He denies exposure to stagnant water. Continue analgesics. blood cultures negative to date. He is afebrile. CRP 1.1 and procalcitonin 0.2 wound care consulted. was able to grab a wound culture while seeing patient today. Order left ankle MRI with and without contrast. (2) Left ankle sprain: Qualifiers: Encounter type: initial encounter Involved ligament of ankle: unspecified ligament Qualified Code(s): S93.402A - Sprain of unspecified ligament of left ankle, initial encounter Code(s): S93.402A - Sprain of unspecified ligament of left ankle, initial encounter Status: Acute Assessment and Plan: Pain, swelling and dependent ecchymosis bilaterally to left ankle. He reported leg injury 9 days ago and hitting his left leg on a manhole. He has been able to bear some weight to his left foot. Repeat imaging does not show acute fractures. Suspect ankle sprain. Add suri wrap, ice compresses, elevation and rest. He was counseled to minimize weight bearing to his left ankle. Consider further imaging, such as MRI, and orthopedic evaluation if worsens. Continue analgesics. (3) Hypertension: Qualifiers: Hypertension type: primary hypertension Qualified Code(s): I10 - Essential (primary) hypertension Code(s): I10 - Essential (primary) hypertension Status: Chronic Assessment and Plan: Vitals reviewed. Continue with lisinopril (4) Asthma: Qualifiers: Asthma severity: mild Asthma persistence: intermittent Asthma complication type: uncomplicated Qualified Code(s): J45.20 - Mild intermittent asthma, uncomplicated Code(s): J45.909 - Unspecified asthma, uncomplicated Status: Chronic Assessment and Plan: Not in acute exacerbation. Continue with albuterol inhaler PRN (5) Anxiety: Code(s): F41.9 - Anxiety disorder, unspecified Status: Chronic Assessment and Plan: Continue with alprazolam 0.5 mg in am and 1 mg at Hs as he takes at home. He reports very stressful job and would likely benefit from SSRI or SNRI for long-term management. We also discussed mindful medications videos and other breathing exercises. (6) Tobacco abuse: Code(s): Z72.0 - Tobacco use Status: Chronic Assessment and Plan: Continue smoking cessation. Nicotine patch ordered. (7) Hepatic steatosis: Code(s): K76.0 - Fatty (change of) liver, not elsewhere classified Status: Chronic Assessment and Plan: AST/ALT elevated on admission and noted to be elevated since 06/2022. CT abd/pelvis at that time showed hepatic steatosis. He reports drinking 6 drinks (beer or vodka mixed drinks every evening and possibly more on weekends. He denies h/o withdrawal or seizures. Likely alcohol fatty liver disease. Hepatitis panel negative Counseled to avoid alcohol, weight loss and diet. lipid panel within normal limits. (8) Heavy alcohol consumption: Code(s): F10.90 - Alcohol use, unspecified, uncomplicated Status: Chronic Assessment and Plan: Heavy alcohol use as above. We discussed recommend amount of intake for males, liver changes already noted on CT scan, as well as risk for liver cirrhosis/
[2023-02-27 15:19] LABS: Vancomycin Trough 15.5 ug/mL (10.0-20.0)
[2023-02-27] MEDS: SILVERGEL (ELTA) 45 ML 1 APPLIC TOPICAL (15:32)
[2023-02-27 15:54] VITALS: BP 127/86
[2023-02-27 20:30] VITALS: BP 112/77; PULSE 70; RESP 16; TEMP 36.4; O2SAT 95
[2023-02-27] MEDS: ALPRAZolam (*CRX) 0.5 MG TABLET 1 MG PO (23:51)
[2023-02-27 23:58] LABS: Glucose Point of Care 96 mg/dl (65-105)
[2023-02-28] MEDS: HYDROcodone/acetaminophen (*CRX) 5-325 MG TABLET 1 TAB PO ×3 (05:03→12:33)
[2023-02-28 05:07] VITALS: BP 121/86; PULSE 70; RESP 18; TEMP 36.2; O2SAT 99
[2023-02-28 08:09] LABS: Basophils Percent Auto 0.7 % (0.2-1.2); Eosinophils Absolute Auto 0.1 K/mm3 (0-0.3); Eosinophils Percent Auto 2.4 % (0-4.4); Hematocrit 41.7 % (42.0-52.0); Hemoglobin 14.4 g/dL (14.0-18.0); Immature Granulocyte Absolute 0.06 K/mm3 (0.00-0.031); Lymphocytes Absolute Auto 1.34 K/mm3 (0.9-3.2); Mean Corpuscular HGB Conc 34.5 g/dl (32-36); Mean Corpuscular Hemoglobin 35.9 pg (26-34); Mean Platelet Volume 10.2 fl (7.4-10.4); Monocytes Absolute Auto 0.7 K/mm3 (0.1-0.6); Monocytes Percent Auto 12.5 % (2.6-8.5); Neutrophils Absolute Auto 3.5 K/mm3 (1.3-6.7); Neutrophils Percent Auto 60.4 % (45.5-73.1); Platelet Count Result 180 k/mm3 (150-375); Red Blood Count 4.01 M/mm3 (4.6-6.20); Red Cell Distribution Width 13.9 % (11.5-14.5); White Blood Count 5.8 K/mm3 (4.5-10.0)
[2023-02-28] MEDS: cefTRIAXone 2 GM/NS 100 ML 2 GM/100 ML BAG IVPB (08:17)
[2023-02-28 08:18] LABS: Alanine Aminotransferase 53 U/L (6-50); Alkaline Phosphatase 94 U/L (38-126); Anion Gap 4 mmol/L (8-16); Aspartate Amino Transferase 66 U/L (17-59); Bilirubin,Total 0.7 mg/dL (0.2-1.3); Blood Urea Nitrogen 8 mg/dL (9-20); Calcium 9.1 mg/dL (8.4-10.2); Carbon Dioxide 28 mmol/L (22-30); Chloride 103 mmol/L (98-107); Estimated CRCL calculation 112 ml/min; Estimated Glomerular Filt Rate > 60; Glucose 98 mg/dL (65-110); Sodium 135 mmol/L (137-145)
[2023-02-28] MEDS: lisinopriL 10 MG TABLET PO (08:18)
[2023-02-28] MEDS: SILVERGEL (ELTA) 45 ML 1 APPLIC TOPICAL (08:18)
[2023-02-28] MEDS: ALPRAZolam (*CRX) 0.5 MG TABLET PO (08:18)
[2023-02-28] MEDS: ENOXAPARIN 40 MG/0.4 ML SYRINGE SUB-Q (08:18)
[2023-02-28] MEDS: THIAMINE HCL 100 MG TABLET PO (08:18)
[2023-02-28] MEDS: FOLIC ACID 1 MG TABLET PO (08:18)
[2023-02-28 08:51] LABS: Hemoglobin A1C 5.1 % (<5.7)
[2023-02-28 11:26] LABS: Glucose Point of Care 105 mg/dl (65-105)
--- NOTE | 2023-02-28 11:37 | PM.DS ---
DS: Admitting Diagnosis Discharge Date 02/28/23 Admitting Diagnosis Left lower extremity cellulitis DS: Discharge Diagnosis Discharge Diagnosis (1) Cellulitis: Qualifiers: Laterality: left Site of cellulitis: extremity Site of cellulitis of extremity: lower extremity Qualified Code(s): L03.116 - Cellulitis of left lower limb Code(s): L03.90 - Cellulitis, unspecified Status: Acute Assessment and Plan: His white count is normal. He was taking clindamycin antibiotic since Saturday prior to admission. He also reported cleaning and using triple antibiotic ointment. 02/27 wound is draining purulent yellow fliud, tender to palpation, and border outlines noted with faint erythema. Continue IV Vancomycin pharmacy to dose and IV Rocephin 2 grams Q24 hours. He denies exposure to stagnant water. Continue analgesics. blood cultures negative to date. He is afebrile. CRP 1.1 and procalcitonin 0.2 wound care consulted. was able to grab a wound culture while seeing patient today. Order left ankle MRI with and without contrast the did not reveal abscess or osteomyelitis present. (2) Left ankle sprain: Qualifiers: Encounter type: initial encounter Involved ligament of ankle: unspecified ligament Qualified Code(s): S93.402A - Sprain of unspecified ligament of left ankle, initial encounter Code(s): S93.402A - Sprain of unspecified ligament of left ankle, initial encounter Status: Acute Assessment and Plan: Pain, swelling and dependent ecchymosis bilaterally to left ankle. He reported leg injury 9 days ago and hitting his left leg on a manhole. He has been able to bear some weight to his left foot. Repeat imaging does not show acute fractures. Suspect ankle sprain. Add suri wrap, ice compresses, elevation and rest. He was counseled to minimize weight bearing to his left ankle. Consider further imaging, such as MRI, and orthopedic evaluation if worsens. Continue analgesics. (3) Hypertension: Qualifiers: Hypertension type: primary hypertension Qualified Code(s): I10 - Essential (primary) hypertension Code(s): I10 - Essential (primary) hypertension Status: Chronic Assessment and Plan: Vitals reviewed. Continue with lisinopril (4) Asthma: Qualifiers: Asthma complication type: uncomplicated Asthma persistence: intermittent Asthma severity: mild Qualified Code(s): J45.20 - Mild intermittent asthma, uncomplicated Code(s): J45.909 - Unspecified asthma, uncomplicated Status: Chronic Assessment and Plan: Not in acute exacerbation. Continue with albuterol inhaler PRN (5) Anxiety: Code(s): F41.9 - Anxiety disorder, unspecified Status: Chronic Assessment and Plan: Continue with alprazolam 0.5 mg in am and 1 mg at Hs as he takes at home. He reports very stressful job and would likely benefit from SSRI or SNRI for long-term management. We also discussed mindful medications videos and other breathing exercises. (6) Tobacco abuse: Code(s): Z72.0 - Tobacco use Status: Chronic Assessment and Plan: Continue smoking cessation. Nicotine patch ordered. (7) Hepatic steatosis: Code(s): K76.0 - Fatty (change of) liver, not elsewhere classified Status: Chronic Assessment and Plan: AST/ALT elevated on admission and noted to be elevated since 06/2022. CT abd/pelvis at that time showed hepatic steatosis. He reports drinking 6 drinks (beer or vodka mixed drinks every evening and possibly more on weekends. He denies h/o withdrawal or seizures. Likely alcohol fatty liver disease. Hepatitis panel negative Counseled to avoid alcohol, weight loss and diet. lipid panel within normal limits. (8) Heavy alcohol consumption: Code(s): F10.90 - Alcohol use, unspecified, uncomplicated Status: Chronic Assessment an
--- NOTE | 2023-03-04 13:09 | PC.NURSE ---
Blood and wound cx without growth.
== END 2023-02-28 12:35 | disposition home or self-care (01) ==
LOC: ANHED 13:48 → ANH3MEDSUR 16:45
PROVIDERS: Internal Medicine Critical Care Medicine; Nurse Practitioner; Nurse Practitioner Family; Admitting Provider Chiropractor; Emergency Provider Emergency Medicine; Visit Provider Internal Medicine
DX: L03.116 Cellulitis of left lower limb (principal); S93.402A Sprain of unspecified ligament of left ankle, initial encounter; W22.8XXA Striking against or struck by other objects, initial encounter; I10 Essential (primary) hypertension; J45.20 Mild intermittent asthma, uncomplicated; F41.9 Anxiety disorder, unspecified; K76.0 Fatty (change of) liver, not elsewhere classified; F17.210 Nicotine dependence, cigarettes, uncomplicated; F10.90 Alcohol use, unspecified, uncomplicated; F12.90 Cannabis use, unspecified, uncomplicated; Z79.51 Long term (current) use of inhaled steroids; Z79.899 Other long term (current) drug therapy
CPT/HCPCS: 36415; 73590; 73630; 73723; 80053; 80061; 80074; 80202; 82948; 83036; 83605; 83735; 84145; 84443; 85025; 86140; 87040; 87070; 87205; 93971; 96361; 96365; 96366; 96367; 96372; 96375; 96376; 99285; A9270; A9577; G0378; J0131; J0696; J1650; J1885; J2060; J3010; J3370; J7030

== ENCOUNTER 2024-07-07 17:18 | Emergency (ER) | payer SELFPAY ==
[2024-07-07 17:41] VITALS: BP 131/89; PULSE 73; RESP 16; TEMP 36.6; O2SAT 97
--- NOTE | 2024-07-07 18:14 | ED.URI ---
HPI - URI/Sore Throat General Chief Complaint: Upper Respiratory Infection Stated Complaint: Headache/ congestion/ cough Time Seen by Provider: 07/07/24 18:14 Source: patient, RN notes reviewed and old records reviewed Mode of arrival: ambulatory Limitations: no limitations History of Present Illness HPI Narrative: 49-year-old male to [facility] for complaint chills, headache, fatigue, increased sweating, dry cough, nasal drainage, sore throat for 3 days. Patient reports having to leave work early yesterday due to not feeling well. Patient denies shortness of breath, difficulty swallowing, hoarseness, fever, nausea, vomiting, diarrhea, allergies, pertinent medical history. Patient able tolerate fluids by mouth. Respirations nonlabored. Patient resting in exam room uncomfortably, appears tired and acutely ill. Patient in no acute distress. Related Data Home Medications Medication Instructions Recorded Confirmed albuterol 90 mcg/actuation aerosol 90 mcg inhalation TID PRN 06/12/22 07/07/24 inhaler Shortness Of Breath alprazolam 0.5 mg tablet 0.5 mg PO TID PRN Anxiety 06/12/22 07/07/24 Allergies Allergy/AdvReac Type Severity Reaction Status Date / Time No Known Allergies Allergy Verified 02/25/23 12:58 Review of Systems Review of Systems: All systems reviewed & are unremarkable except as noted in HPI and below Constitutional: Constitutional: Reports as per HPI, Reports chills, Reports excessive sweating, Reports fatigue and Reports headache(s) Eyes: Eyes: Reports no additional eye complaints ENT: Reports as per HPI, Reports nasal discharge and Reports sore throat Cardiovascular: Cardiovascular: Reports no additional cardiovascular complaints, Denies chest pain and Denies dyspnea Respiratory: Respiratory: Reports no additional respiratory complaints, Reports cough and Denies dyspnea Musculoskeletal: Musculoskeletal: Reports no additional musculoskeletal complaints Neurologic: Reports system reviewed and no additional complaints, except as documented Psychiatric: Psychiatric: Reports no additional psychiatric complaints PMFSH Past Medical History Medical History Anxiety Asthma Hepatic steatosis Noted on CT scan 06/2022 Hypertension Tobacco abuse Surgical History Surgical History H/O knee surgery H/O spinal fusion Family History Family History Unknown No problems noted. Other Unknown family medical history Social History Social History Social History: The patient lives with his significant other. He has 4 children. 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 Code status full code Smoking packs per day: 1 Smoking cigarettes per day: 20.0 Years smoked: 30 Smoking pack-years: 30.00 Smoking status: Current every day smoker Tobacco type: cigarettes Alcohol intake: current Drinks per week: 20 Alcohol use details: social Substance use: current Substance use type: marijuana Lack of Transportation: No Lack of Food: Never True Current Housing: I Have Housing Concerned About Future Housing: No Difficulty Paying Gas/Electric Bills: No Difficulty Paying for Meds: No Currently Unemployed: No Education: Associate Degree Difficulty w/ Childcare or Family Care: No Living arrangements: with family Gender identity (if verbalized by the patient): Male Spiritual care concerns: No Comments At the time of my signature, I reviewed and agree with the nursing past medical, surgical, social, and family history. There is no relevant family history pertinent to the patient complaint. Exam Const: General: cooperative, no acute distress, alert, ill appearing acutely, tired appearing, uncomfortable and well nourished Nutr
[2024-07-07 18:23] LABS: EDSTREPNEGPOS1 Negative
== END 2024-07-07 18:50 | disposition home or self-care (01) ==
PROVIDERS: Emergency Provider Nurse Practitioner Family
DX: U07.1 COVID-19 (principal); J45.909 Unspecified asthma, uncomplicated; I10 Essential (primary) hypertension; K76.0 Fatty (change of) liver, not elsewhere classified; F41.9 Anxiety disorder, unspecified
CPT/HCPCS: 87081; 87426; 87880; 99213; G0463

== ENCOUNTER 2024-07-23 10:24 | Emergency (ER) | payer SELFPAY ==
[2024-07-23 10:37] VITALS: BP 154/106; PULSE 81; RESP 16; TEMP 36.3; O2SAT 97
--- NOTE | 2024-07-23 10:50 | ED.URI ---
HPI - URI/Sore Throat General Chief Complaint: Upper Respiratory Infection Stated Complaint: Headache/Congestion Time Seen by Provider: 07/23/24 10:50 Source: patient and RN notes reviewed Mode of arrival: ambulatory Limitations: no limitations History of Present Illness HPI Narrative: 49-year-old male with history of hypertension presented for complaint of headache, sinus drainage and pressure, cough over the past 2 weeks. Headache pain is in the forehead and cheeks. He was diagnosed with COVID on 07/07 and symptoms have not significantly improved. States using his albuterol inhaler has not improved the cough. He denies shortness of breath, wheezing, nausea vomiting, diarrhea or lethargy. Has been missing work. Taking Flonase, DayQuil and NyQuil for symptoms. Smokes 1ppd. MD elicited complaint: cough Related Data Home Medications Medication Instructions Recorded Confirmed albuterol 90 mcg/actuation aerosol 90 mcg inhalation TID PRN 06/12/22 07/23/24 inhaler Shortness Of Breath alprazolam 0.5 mg tablet 0.5 mg PO TID PRN Anxiety 06/12/22 07/23/24 lisinopril 20 mg tablet 20 mg PO DAILY 07/23/24 07/23/24 Allergies Allergy/AdvReac Type Severity Reaction Status Date / Time No Known Allergies Allergy Verified 07/23/24 10:41 Review of Systems Review of Systems: CONSTITUTIONAL: Endorses malaise, denies chills, sweats, fever EYES: Denies visual changes, redness, or discharge ENT: Reports rhinorrhea, congestion, sinus pain, denies otalgia, sore throat CARDIOVASCULAR: Denies chest pain, palpitations, edema RESPIRATORY: Reports cough, post nasal drainage. Denies dyspnea GASTROINTESTINAL: Denies abdominal pain, nausea, vomiting, diarrhea SKIN: Denies rash or itching MUSCULOSKELETAL: denies myalgia NEUROLOGIC: reports headache PMFSH Past Medical History Medical History Anxiety Asthma Hepatic steatosis Noted on CT scan 06/2022 Hypertension Tobacco abuse Surgical History Surgical History H/O knee surgery H/O spinal fusion Family History Family History Unknown No problems noted. Other Unknown family medical history Social History Social History Social History: The patient lives with his significant other. He has 4 children. 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 Code status full code Smoking packs per day: 1 Smoking cigarettes per day: 20.0 Years smoked: 30 Smoking pack-years: 30.00 Smoking status: Current every day smoker Tobacco type: cigarettes Alcohol intake: current Drinks per week: 20 Alcohol use details: social Substance use: current Substance use type: marijuana Lack of Transportation: No Lack of Food: Never True Current Housing: I Have Housing Concerned About Future Housing: No Difficulty Paying Gas/Electric Bills: No Difficulty Paying for Meds: No Currently Unemployed: No Education: Associate Degree Difficulty w/ Childcare or Family Care: No Living arrangements: with family Gender identity (if verbalized by the patient): Male Spiritual care concerns: No Exam Narrative: GENERAL: mildly Ill-appearing, nontoxic no acute distress. EYES: conjunctivae clear ENT: Mucous membranes moist. TMs pearly bender with dull light reflex bilaterally; no tragal tenderness. Oropharynx not erythematous without lesions or exudate, no drooling, no hoarseness, no trismus, uvula midline. No tripod positioning, muffled voice, soft palate or pharyngeal wall bulging NECK: Supple. No lymphadenopathy CHEST: Clear to auscultation, breath sounds equal. No wheezing, rhonchi, rales, or stridor. No respiratory distress, speaks in full sentences. HEART: Regular rate and rhythm. No murmur heard. SKIN: Warm, dry, no rash. NEURO: Alert and oriented x3.
== END 2024-07-23 11:08 | disposition home or self-care (01) ==
PROVIDERS: Emergency Provider Nurse Practitioner Family
DX: J32.9 Chronic sinusitis, unspecified (principal); F17.210 Nicotine dependence, cigarettes, uncomplicated; J45.909 Unspecified asthma, uncomplicated; I10 Essential (primary) hypertension; K76.0 Fatty (change of) liver, not elsewhere classified; F41.9 Anxiety disorder, unspecified
CPT/HCPCS: 99213; G0463

== ENCOUNTER 2024-09-21 10:27 | Emergency (ER) | payer OTHER, SELFPAY ==
--- NOTE | ~2024-09-21 | CT_ITS ---
EXAMINATION: CT abdomen pelvis w con DATE: 09/21/2024 13:58 INDICATION: Upper abdominal pain, nausea, vomiting and diarrhea. TECHNIQUE: Computed tomography (CT) of the abdomen and pelvis was performed with 100 mL Omnipaque-350 intravenous contrast. Automated exposure control and iterative reconstruction technique were employe d. The dose-length product was 389.34 mGy-cm. COMPARISON: None FINDINGS: Linear discoid atelectasis at the left lower lobe. Heart size is normal. No pericardial or pleural ef fusion. Diffuse hepatic steatosis. Gallbladder, spleen, pancreas, bilateral adrenal glands and kidney s are normal. Normal retrocecal appendix. No bowel obstruction. There is diffuse wall thickening of t he incompletely distended bladder. No free intraperitoneal gas or fluid. No pathologically enlarged a bdominal or pelvic lymphadenopathy. L3-S1 anterior spinal fusion with interbody fusion devices and in dependent anterior plate and screw fixations at each level. IMPRESSION: 1. Diffuse bladder wall thickening which could be due to chronic outlet obstruction or cystitis eithe r acute or chronic. Correlate with urinalysis. Reviewed, dictated and finalized at location B. N UNLOADER IMPRESSION: 1. Diffuse bladder wall thickening which could be due to chronic outlet obstruc tion or cystitis either acute or chronic. Correlate with urinalysis.
--- NOTE | ~2024-09-21 | US_ITS ---
Limited ABDOMINAL ULTRASOUND (Doppler ultrasound interrogation techniques used as needed for this exa m.) No Ordering provider: Agustin Serra MD History: . RUQ pain, elevated liver enzymes . Comparison: None. FINDINGS: PANCREAS: Partially visualized. Normal echotexture and size of the visualized portion. PORTAL VEIN: Hepatopedal flow demonstrated. LIVER: Normal size and slightly increased echogenicity. No focal hepatic lesions or perihepatic flui d collections are identified. BILIARY DUCTS: No intra or extrahepatic biliary dilation. Common bile duct measures 6 mm in diameter which is normal for patient's age. GALLBLADDER: Not well distended. No stones, sludge, gallbladder wall thickening or pericholecystic fl uid. Wall thicknesses 0.3 cm. Negative sonographic Aguilar's sign. cysts. Aorta: Normal. IVC: Normal. FREE FLUID: None visualized within the upper abdomen. IMPRESSION: Contracted gallbladder. Possible mild fat infiltration Otherwise, normal limited abdominal ultrasound . Reviewed, dictated and finalized at location A. TRIMMING MACHINE OPERATOR IMPRESSION: Contracted gallbladder. Possible mild fat infiltration Otherwise, normal limite d abdominal ultrasound.
[2024-09-21 10:29] VITALS: BP 130/95; PULSE 73; RESP 16; TEMP 36.4; O2SAT 100
--- NOTE | 2024-09-21 12:47 | ED.ABDPAIN ---
HPI - Abdominal Pain General Chief Complaint: Abdominal Pain <KARLA Dominique Last Filed: 09/21/24 12:54> Stated Complaint: abdominal pain <KARLA Dominique Last Filed: 09/21/24 12:54> Time Seen by Provider: 09/21/24 12:48 <KARLA Dominique Last Filed: 09/21/24 12:54> Focused HPI: Patient is a 49 y/o male who presents to the ED with c/o upper abdominal pain. States pain has been worsening over the past 1 week. Present throughout upper abdomen. Feels better with laying flat. Tried taking Ibuprofen w/o improvement. Also reports abdominal bloating, N/V, difficulty eating, decreased appetite, diarrhea. Denies fevers, urinary complaints, Patient is a daily drinker - 4 drinks per day. Denies hx of gallbladder issues or pancreas issues. GENERAL: Well-appearing, well-nourished, and in no acute distress. HEAD: Normocephalic, atraumatic. CHEST: Clear to auscultation. ?No respiratory distress. HEART: Regular rate and rhythm.? ABD: Diffuse pain throughout abdomen, worst in epigastric region and RUQ. Slightly hypoactive BS. NEURO: ?Alert and oriented x3. Patient screened in triage and initial orders placed.? ?Additional care and disposition to be based upon?diagnostic testing and treatment. <KRALA Dominique Last Filed: 09/21/24 12:54> Source: patient <KARLA Dominique Last Filed: 09/21/24 12:54> Mode of arrival: ambulatory <KARLA Dominique Last Filed: 09/21/24 12:54> Limitations: no limitations <KARLA Dominique Last Filed: 09/21/24 12:54> Related Data Home Medications: Home Medications Medication Instructions Recorded Confirmed albuterol 90 mcg/actuation aerosol 90 mcg inhalation TID PRN 06/12/22 07/23/24 inhaler Shortness Of Breath alprazolam 0.5 mg tablet 0.5 mg PO TID PRN Anxiety 06/12/22 07/23/24 lisinopril 20 mg tablet 20 mg PO DAILY 07/23/24 07/23/24 <KARLA Dominique Last Filed: 09/21/24 12:54> Allergies/Adverse Reactions: Allergies Allergy/AdvReac Type Severity Reaction Status Date / Time No Known Allergies Allergy Verified 09/21/24 13:27 <KARLA Dominique Last Filed: 09/21/24 12:54> [facility] Past Medical History Medical History: Medical History Anxiety Asthma Hepatic steatosis Noted on CT scan 06/2022 Hypertension Tobacco abuse <KARLA Dominique Last Filed: 09/21/24 12:54> Surgical History Surgical History: Surgical History H/O knee surgery H/O spinal fusion <KARLA Dominique Last Filed: 09/21/24 12:54> Family History Family History: Family History Unknown No problems noted. Other Unknown family medical history <KARLA Dominique Last Filed: 09/21/24 12:54> Social History Social History: Social History Social History: The patient lives with his significant other. He has 4 children. 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 Code status full code Smoking packs per day: 1 Smoking cigarettes per day: 20.0 Years smoked: 30 Smoking pack-years: 30.00 Smoking status: Current every day smoker Tobacco type: cigarettes Alcohol intake: current Drinks per week: 20 Alcohol use details: social Substance use: current Substance use type: marijuana Lack of Transportation: No Lack of Food: Never True Current Housing: I Have Housing Concerned About Future Housing: No Difficulty Paying Gas/Electric Bills: No Difficulty Paying for Meds: No Currently Unemployed: No Education: Associate Degree Difficulty w/ Childcare or Family Care: No Living arrangements: with family Gender identity (if verbalized by the patient): Male Spiritual care concerns: No <Radha Craig PA-C - Last Filed: 09/21/24 12:54> Exam Narrative: APPEARANCE: No apparent distress. Head: atraumatic. EYES: EOMI, NOSE: Atraumatic NECK: Trachea midline RESPIRATORY: No increased rate of breathing , clear to auscultation CARDIOVASCULAR: RRR, ABDOMINAL: Non-distended, mild tenderness in the right upper quadrant without guarding rebound MUSCULOSKELETAl: No obvious deformities NEURO: Alert. Moving 4/4 extremities SKIN:: Warm, dry. Normal color PSYCHIATRIC: Normal affect <Agustin Serra MD - Last Filed: 09/21/24 16:12> Course Vital Signs Vital signs: Vital Signs Temperature 97.5 F L 09/21/24 10:29 Pulse Rate 73 09/21/24 10:29 Respiratory Rate 16 09/21/24 10:29 Blood Pressure 130/95 H 09/21/24 10:29 Pulse Oximetry 100 09/21/24 10:29 Oxygen Delivery Room Air 09/21/24 10:29 Temperature 97.8 F 09/21/24 15:15 Pulse Rate 58 L 09/21/24 15:15 Respiratory Rate 15 09/21/24 15:15 Blood Pressure 133/87 09/21/24 15:15 Pulse Oximetry 99 09/21/24 15:15 Oxygen Delivery Room Air 09/21/24 10:29 <Radha Craig PA-C - Last Filed: 09/21/24 12:54> Vital Signs Temperature 97.5 F L 09/21/24 10:29 Pulse Rate 73 09/21/24 10:29 Respiratory Rate 16 09/21/24 10:29 Blood Pressure 130/95 H 09/21/24 10:29 Pulse Oximetry 100 09/21/24 10:29 Oxygen Delivery Room Air 09/21/24 10:29 Temperature 97.8 F 09/21/24 15:15 Pulse Rate 58 L 09/21/24 15:15 Respiratory Rate 15 09/21/24 15:15 Blood Pressure 133/87 09/21/24 15:15 Pulse Oximetry 99 09/21/24 15:15 Oxygen Delivery Room Air 09/21/24 10:29 <Agustin Serra MD - Last Filed: 09/21/24 16:12> MDM - Abdominal Pain MDM Narrative Medical decision making narrative: MSE by BREA in triage. <Radha Craig PA-C - Last Filed: 09/21/24 12:54> MSE by BREA in triage. -Course: 49-year-old with heavy alcohol use presenting with right upper quadrant pain. CT and right upper quadrant ultrasound showed hepatic steatosis. No concern for cholecystitis. Liver enzymes elevated alcohol abuse pattern. Presentation was consistent with alcoholic hepatitis versus alcoholic gastritis. patient educated on alcohol cessation. Patient be discharged with a PPI and primary care follow-up. Given return precautions. Incidentally patient had positive nitrites and leuk esterase on his urine. Some mild thickening on imaging. Discussed this with the patient would like be treated with a course of antibiotics for possible UTI. -DDX includes but is not limited to: Cholecystitis, alcoholic hepatitis, gastritis/peptic ulcer disease -Co-morbidities complicating care: daily alcohol use -Social determinants of health: daily alcohol use, \ -Independent interpretation of studies: labs and imaging reviewed. Significant for: Bilirubin 1.8, AST 245, ALT 178, alk phos 134 Urine with positive nitrites and trace leuk esterase. Thickening of the bladder on imaging. -Shared decision making / Disposition: Discharge -RX Keflex, PPI <Agustin Serra MD - Last Filed: 09/21/24 16:12> Lab Data Result diagrams: 09/21/24 12:58 09/21/24 12:58 <Radha Craig PA-C - Last Filed: 09/21/24 12:54> Labs: Lab Results 09/21/24 Range/Units 12:58 WBC 9.0 (4.5-10.0) K/mm3 RBC 4.94 (4.6-6.20) M/mm3 Hgb 17.1 (14.0-18.0) g/dL Hct 48.9 (42.0-52.0) % MCV 99.0 (80-100) fl MCH 34.6 H (26-34) pg MCHC 35.0 (32-36) g/dl RDW 14.7 H (11.5-14.5) % Plt Count 235 (150-375) k/mm3 MPV 10.1 (7.4-10.4) fl Immature Gran % (Auto) 0.6 H (0-0.5) % Neut % (Auto) 67.2 (45.5-73.1) % Lymph % (Auto) 20.7 (18.3-44.2) % [place] % (Auto) 10.1 H (2.6-8.5) % Eos % (Auto) 0.7 (0-4.4) % Baso % (Auto) 0.7 (0.2-1.2) % Lymph # (Auto) 1.87 (0.9-3.2) K/mm3 [place] # (Auto) 0.9 H (0.1-0.6) K/mm3 Eos # (Auto) 0.1 (0-0.3) K/mm3 Baso # (Auto) 0.1 (0.0-0.1) K/mm3 Abs Immat Gran (auto) 0.05 H (0.00-0.031) K/mm3 Absolute Neuts (auto) 6.1 (1.3-6.7) K/mm3 Absolute Nucleated RBC 0.000 (0.0-0.012) K/mm3 Nucleated RBC % 0.0 (0.0-0.2) % Sodium 132 L (137-145) mmol/L Potassium 3.2 L (3.4-5.0) mmol/L Chloride 94 L (98-107) mmol/L Carbon Dioxide 30 (22-30) mmol/L Anion Gap 8 (4-12) mmol/L BUN 9 (9-20) mg/dL Creatinine 0.80 (0.7-1.3) mg/dL Estim Creat Clear Calc 97 ml/min Estimated GFR > 60 (59 - ) Glucose 104 (65-110) mg/dL Calcium 9.8 (8.4-10.2) mg/dL Total Bilirubin 1.8 H (0.2-1.3) mg/dL AST 245 H (17-59) U/L ALT 178 H (6-50) U/L Alkaline Phosphatase 134 H (38-126) U/L Total Protein 8.0 (6.3-8.2) g/dL Albumin 4.5 (3.5-5.1) g/dL Lipase 257 (23-300) U/L Urine Color Dark yellow (Yellow) Urine Appearance Clear (Clear) Urine pH 6.0 (5.0-9.0) Ur Specific [place] 1.017 (1.001-1.035) Urine Protein Negative (Negative) mg/dL Urine Glucose (UA) Negative (Negative) mg/dL Urine Ketones Trace H (Negative) mg/dL Ur Blood (Man) Negative (Negative) Urine Nitrate Positive H (Negative) Urine Bilirubin 1+ H (Negative) Urine Urobilinogen 1.0 (<2.0) mg/dL Add Ur Microanalysis Reviewed Leukocyte Esterase Rfl Trace H (Negative) [place]/UL Urine RBC 0-2 (0-2) /hpf Urine WBC 0-5 (0-3) /hpf Ur Squamous Epith Cells None seen (Few) /hpf Urine Bacteria None seen /hpf Urine Casts 3-5 Urine Mucus Present /lpf <Radha Craig PA-C - Last Filed: 09/21/24 12:54> Lab Results 09/21/24 Range/Units 12:58 WBC 9.0 (4.5-10.0) K/mm3 RBC 4.94 (4.6-6.20) M/mm3 Hgb 17.1 (14.0-18.0) g/dL Hct 48.9 (42.0-52.0) % MCV 99.0 (80-100) fl MCH 34.6 H (26-34) pg MCHC 35.0 (32-36) g/dl RDW 14.7 H (11.5-14.5) % Plt Count 235 (150-375) k/mm3 MPV 10.1 (7.4-10.4) fl Immature Gran % (Auto) 0.6 H (0-0.5) % Neut % (Auto) 67.2 (45.5-73.1) % Lymph % (Auto) 20.7 (18.3-44.2) % [place] % (Auto) 10.1 H (2.6-8.5) % Eos % (Auto) 0.7 (0-4.4) % Baso % (Auto) 0.7 (0.2-1.2) % Lymph # (Auto) 1.87 (0.9-3.2) K/mm3 [place] # (Auto) 0.9 H (0.1-0.6) K/mm3 Eos # (Auto) 0.1 (0-0.3) K/mm3 Baso # (Auto) 0.1 (0.0-0.1) K/mm3 Abs Immat Gran (auto) 0.05 H (0.00-0.031) K/mm3 Absolute Neuts (auto) 6.1 (1.3-6.7) K/mm3 Absolute Nucleated RBC 0.000 (0.0-0.012) K/mm3 Nucleated RBC % 0.0 (0.0-0.2) % Sodium 132 L (137-145) mmol/L Potassium 3.2 L (3.4-5.0) mmol/L Chloride 94 L (98-107) mmol/L Carbon Dioxide 30 (22-30) mmol/L Anion Gap 8 (4-12) mmol/L BUN 9 (9-20) mg/dL Creatinine 0.80 (0.7-1.3) mg/dL Estim Creat Clear Calc 97 ml/min Estimated GFR > 60 (59 - ) Glucose 104 (65-110) mg/dL Calcium 9.8 (8.4-10.2) mg/dL Total Bilirubin 1.8 H (0.2-1.3) mg/dL AST 245 H (17-59) U/L ALT 178 H (6-50) U/L Alkaline Phosphatase 134 H (38-126) U/L Total Protein 8.0 (6.3-8.2) g/dL Albumin 4.5 (3.5-5.1) g/dL Lipase 257 (23-300) U/L Urine Color Dark yellow (Yellow) Urine Appearance Clear (Clear) Urine pH 6.0 (5.0-9.0) Ur Specific [place] 1.017 (1.001-1.035) Urine Protein Negative (Negative) mg/dL Urine Glucose (UA) Negative (Negative) mg/dL Urine Ketones Trace H (Negative) mg/dL Ur Blood (Man) Negative (Negative) Urine Nitrate Positive H (Negative) Urine Bilirubin 1+ H (Negative) Urine Urobilinogen 1.0 (<2.0) mg/dL Add Ur Microanalysis Reviewed Leukocyte Esterase Rfl Trace H (Negative) [place]/UL Urine RBC 0-2 (0-2) /hpf Urine WBC 0-5 (0-3) /hpf Ur Squamous Epith Cells None seen (Few) /hpf Urine Bacteria None seen /hpf Urine Casts 3-5 Urine Mucus Present /lpf <Agustin Serra MD - Last Filed: 09/21/24 16:12> Imaging Data Radiologist's impression: ITS Impressions Abdomen/Pelvis CT 09/21/24 14:08 IMPRESSION: 1. Diffuse bladder wall thickening which could be due to chronic outlet obstruction or cystitis either acute or chronic. Correlate with urinalysis. Abdomen Ultrasound 09/21/24 15:18 IMPRESSION: Contracted gallbladder. Possible mild fat infiltration Otherwise, normal limited abdominal ultrasound. <Radha Craig PA-C - Last Filed: 09/21/24 12:54> ITS Impressions Abdomen/Pelvis CT 09/21/24 14:08 IMPRESSION: 1. Diffuse bladder wall thickening which could be due to chronic outlet obstruction or cystitis either acute or chronic. Correlate with urinalysis. Abdomen Ultrasound 09/21/24 15:18 IMPRESSION: Contracted gallbladder. Possible mild fat infiltration Otherwise, normal limited abdominal ultrasound. <Agustin Serra MD - Last Filed: 09/21/24 16:12> Discharge Plan Discharge Clinical Impression: Abdominal pain, RUQ, Elevated liver enzymes, Acute UTI <Radha Craig PA-C - Last Filed: 09/21/24 12:54> Patient Disposition: Home, Self-Care <Radha Craig PA-C - Last Filed: 09/21/24 12:54> Condition: Stable <Radha Craig PA-C - Last Filed: 09/21/24 12:54> Instructions: Antibiotic Form, Alcoholic Hepatitis (ED) <Radha Craig PA-C - Last Filed: 09/21/24 12:54> Additional Instructions: please follow-up with your primary care physician for further management. Please cease alcohol use as I do believe that is the cause of your pain. You can take a PPI for your stomach discomfort. Please complete a course of Keflex for possible urinary tract infection. Return if you develop severe pain fevers or would like re-evaluation. <Radha Craig PA-C - Last Filed: 09/21/24 12:54> Prescriptions: New cephalexin 500 mg capsule 500 mg PO Q12H Qty: 14 0RF omeprazole 20 mg tablet,delayed release (DR/EC) 20 mg PO DAILY Qty: 60 0RF No Action lisinopril 20 mg tablet 20 mg PO DAILY Patient Comments: Patient reports he has not been taking it as he should methylprednisolone [Medrol (Herb)] 4 mg tablets,dose pack See Rx Instructions .ROUTE .COMPLEX Qty: 21 0RF Rx Instructions: orally per package directions amoxicillin-pot clavulanate 875-125 mg tablet 1 tablet PO Q12H 7 Days Qty: 14 0RF alprazolam 0.5 mg Tablet 0.5 mg PO TID PRN (Reason: Anxiety) albuterol 90 mcg/actuation Aerosol 90 mcg INHALATION TID PRN (Reason: Shortness Of Breath) <Radha Craig PA-C - Last Filed: 09/21/24 12:54> Follow-up/Referrals: PHYSICIAN,AIRFREIGHT OPERATIONS AGENT [Non-Staff] - Denis Rausch MD [Physician] - 1 Week (Elevated liver enzymes ) <Radha Craig PA-C - Last Filed: 09/21/24 12:54>
[2024-09-21 13:11] LABS: Basophils Absolute Auto 0.1 K/mm3 (0.0-0.1); Basophils Percent Auto 0.7 % (0.2-1.2); Eosinophils Absolute Auto 0.1 K/mm3 (0-0.3); Eosinophils Percent Auto 0.7 % (0-4.4); Hematocrit 48.9 % (42.0-52.0); Hemoglobin 17.1 g/dL (14.0-18.0); Immature Granulocyte Absolute 0.05 K/mm3 (0.00-0.031); Immature Granulocyte Percent A 0.6 % (0-0.5); Lymphocytes Absolute Auto 1.87 K/mm3 (0.9-3.2); Lymphocytes Percent Auto 20.7 % (18.3-44.2); Mean Corpuscular Hemoglobin 34.6 pg (26-34); Mean Platelet Volume 10.1 fl (7.4-10.4); Monocytes Absolute Auto 0.9 K/mm3 (0.1-0.6); Monocytes Percent Auto 10.1 % (2.6-8.5); Neutrophils Absolute Auto 6.1 K/mm3 (1.3-6.7); Neutrophils Percent Auto 67.2 % (45.5-73.1); Platelet Count Result 235 k/mm3 (150-375); Red Blood Count 4.94 M/mm3 (4.6-6.20); Red Cell Distribution Width 14.7 % (11.5-14.5)
[2024-09-21] MEDS: SODIUM CHLORIDE 0.9% IV 1,000 ML 999 ML IV CONT (13:25)
[2024-09-21] MEDS: PANTOPRAZOLE SODIUM IV 40 MG VIAL IV PUSH (13:25)
[2024-09-21] MEDS: ONDANSETRON INJ 4 MG/2 ML VIAL IV PUSH (13:25)
[2024-09-21] MEDS: DICYCLOMINE HCL 10 MG CAPSULE 20 MG PO (13:25)
[2024-09-21 13:31] LABS: Alanine Aminotransferase 178 U/L (6-50); Albumin Level 4.5 g/dL (3.5-5.1); Alkaline Phosphatase 134 U/L (38-126); Anion Gap 8 mmol/L (4-12); Aspartate Amino Transferase 245 U/L (17-59); Bilirubin,Total 1.8 mg/dL (0.2-1.3); Blood Urea Nitrogen 9 mg/dL (9-20); Calcium 9.8 mg/dL (8.4-10.2); Carbon Dioxide 30 mmol/L (22-30); Chloride 94 mmol/L (98-107); Estimated CRCL calculation 97 ml/min; Estimated Glomerular Filt Rate > 60; Glucose 104 mg/dL (65-110); Lipase 257 U/L (23-300); Potassium 3.2 mmol/L (3.4-5.0); Sodium 132 mmol/L (137-145)
[2024-09-21 13:39] LABS: Add Urine Microscopic? YES; Appearance Urine Clear (Clear); Bacteria Urine None Seen /hpf; Bilirubin Urine 1+ (Negative); Blood Urine Negative (Negative); Color Urine Dark Yellow (Yellow); Glucose Urine UA Negative (Negative); Ketones Urine Trace mg/dL (Negative); Leukocyte Esterase Ur Trace LEU/UL (Negative); Mucus Urine Present /lpf; Need Manual Microscopic Reviewed; Nitrate Urine Positive (Negative); Protein Urine Negative (Negative); RBC Urine 0-2 /hpf (0-2); Specific Grav Ur 1.017 (1.001-1.035); Squamous Epithelial Cell Urine None Seen /hpf (Few); WBC Urine 0-5 /hpf (0-3)
--- NOTE | 2024-09-21 14:59 | PC.NURSE ---
Pt to u/s via w/c at this time.
[2024-09-21 15:15] VITALS: BP 133/87; PULSE 58; RESP 15; TEMP 36.6; O2SAT 99
[2024-09-21] MEDS: POTASSIUM CHLORIDE 20 MEQ PACKET (FOR LIQUID) 40 MEQ PO (15:59)
== END 2024-09-21 16:24 | disposition home or self-care (01) ==
PROVIDERS: Physician Assistant; Emergency Provider Emergency Medicine
DX: N39.0 Urinary tract infection, site not specified (principal); R74.01 Elevation of levels of liver transaminase levels; R10.11 Right upper quadrant pain; I10 Essential (primary) hypertension; J45.909 Unspecified asthma, uncomplicated; F41.9 Anxiety disorder, unspecified; F17.210 Nicotine dependence, cigarettes, uncomplicated; Z79.899 Other long term (current) drug therapy; R93.2 Abnormal findings on diagnostic imaging of liver and biliary tract
CPT/HCPCS: 36415; 74177; 76705; 80053; 81001; 83690; 85025; 87086; 96361; 96374; 96375; 99284; A9270; J2405; J2470; J7030; Q9967

== ENCOUNTER 2025-02-22 05:45 | Emergency (ER) | payer SELFPAY ==
[2025-02-22 05:49] VITALS: BP 165/100; PULSE 87; RESP 20; TEMP 36.7; O2SAT 95
--- NOTE | 2025-02-22 06:00 | ED.EXTPRO ---
HPI - Extremity Problem General Chief complaint: Extremity Problem,Nontraumatic Stated complaint: neuopathy Time Seen by Provider: 02/22/25 05:47 History of Present Illness HPI Narrative: Patient is a 49-year-old male who presents the emergency department this morning complaining of bilateral foot pain secondary to his neuropathy. Patient states that he was diagnosed with neuropathy approximately 1 month ago. Was started on gabapentin initially and then switched to Lyrica and patient states that although initially they did help with his pain, he feels as though they are no longer working. Patient states the pain is so severe it is preventing him from being able to sleep. Patient states that his doctor that has been following his neuropathy schedule him for some nerve study test which she was supposed to have tomorrow but they wanted an upfront payment which the patient does not have and he is trying to figure out how he can get that study done. Patient states that his last dose of Lyrica was at 8:00 p.m. last night. Denies any recent falls or trauma. No additional symptoms or concerns at this time. Related Data Home Medications ?Medication ?Instructions ?Recorded ?Confirmed ?Last Taken ?Type albuterol 90 mcg/actuation aerosol 90 mcg inhalation TID PRN 06/12/22 07/23/24 Unknown History inhaler Shortness Of Breath alprazolam 0.5 mg tablet 0.5 mg PO TID PRN Anxiety 06/12/22 07/23/24 Unknown History lisinopril 20 mg tablet 20 mg PO DAILY 07/23/24 07/23/24 Unknown History Allergies Allergy/AdvReac Type Severity Reaction Status Date / Time tramadol AdvReac Intermediate Agitated Verified 02/22/25 05:54 Review of Systems Review of Systems: All systems are reviewed and are negative unless stated otherwise in the HPI. PMFSH Past Medical History Medical History Hepatic steatosis Noted on CT scan 06/2022 Tobacco abuse Hypertension Asthma Anxiety Surgical History Surgical History H/O knee surgery H/O spinal fusion Family History Family History Unknown No problems noted. Other Unknown family medical history Social History Social History Social History: The patient lives with his significant other. He has 4 children. 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 Code status full code Smoking packs per day: 1 Smoking cigarettes per day: 20.0 Years smoked: 30 Smoking pack-years: 30.00 Smoking status: Current every day smoker Tobacco type: cigarettes Alcohol intake: current Drinks per week: 20 Alcohol use details: social Substance use: current Substance use type: marijuana Lack of Transportation: No Lack of Food: Never True Current Housing: I Have Housing Concerned About Future Housing: No Difficulty Paying Gas/Electric Bills: No Difficulty Paying for Meds: No Currently Unemployed: No Education: Associate Degree Difficulty w/ Childcare or Family Care: No Living arrangements: with family Gender identity (if verbalized by the patient): Male Spiritual care concerns: No Exam Narrative: General: Alert, awake, afebrile, in no acute distress. HEENT: PERRL, no rhinorrhea, no post nasal drip, oropharynx clear. Neck: Trachea midline, no JVD, no lymphadenopathy. Cardiovascular: Regular rate and rhythm, no murmurs, rubs or gallops, no peripheral edema. Respiratory: Clear to auscultation bilaterally, no tachypnea, no wheezing, no rhonchi, no rubs, no respiratory distress. Abdomen: Soft, nontender, nondistended, no rebound, no guarding, no peritoneal signs. Musculoskeletal: No joint swelling or deformity, normal muscle tone. Skin: No rashes or petechia, no signs of infection. Psychiatric: Alert and oriented, normal behavior and judgment for situation. Neurological: Alert and oriented to person, place, and time. Follows all commands. No focal deficits, speech is clear and fluent. Course Vital Signs Vital signs: Vital Signs Temperature 98.0 F 02/22/25 05:49 Pulse Rate 87 02/22/25 05:49 Respiratory Rate 20 02/22/25 05:49 Blood Pressure 165/100 H 02/22/25 05:49 Pulse Oximetry 95 02/22/25 05:49 Oxygen Delivery Room Air 02/22/25 05:49 Temperature 98.0 F 02/22/25 05:49 Pulse Rate 87 02/22/25 05:49 Respiratory Rate 20 02/22/25 05:49 Blood Pressure 165/100 H 02/22/25 05:49 Pulse Oximetry 95 02/22/25 05:49 Oxygen Delivery Room Air 02/22/25 05:49 MDM - Extremity (Nontraumatic) MDM Narrative Medical decision making narrative: The patient was evaluated by myself in the emergency department. History is obtained from patient who is an independent historian and physical exam was performed. External medical records were reviewed at this time. Patient was administered an oral [place] 7.5-325 mg and 15 mg of IM Toradol for pain. Differential diagnosis considerations include peripheral neuropathy, paresthesias. Comorbidities impacting this visit include history of neuropathy I have evaluated and discussed social determinants of health with the patient that could potentially impact subsequent diagnosis and treatment plans. On repeat assessment of the patient, reevaluation revealed that the patient is doing well and is in no acute distress. Patient symptoms have improved since he arrived to our emergency department. Repeat vital signs were all reviewed and noted to be stable. Differential diagnosis and treatment plan were discussed with the patient at bedside. Patient agrees with discussion and after shared medical decision making agrees with discharge. All questions were answered to the patient's satisfaction. Patient will follow up with his PCP in 3-5 days. Patient was provided with strict return precautions and instructed to return to the emergency department if any new or worsening symptoms develop. The patient was discharged in stable condition. Discharge Plan Discharge Clinical Impression: Neuropathy Patient Disposition: Home Condition: Improved Instructions: Antibiotic Form, Peripheral Neuropathy (ED) Additional Instructions: Please follow-up with your family doctor within the next 3-5 days. Return to to the emergency department if any new or worsening symptoms develop. Use the prescribed medications as needed for breakthrough pain. Patient Language: [place] Prescriptions: New methocarbamol 750 mg tablet 750 mg PO TID PRN (Reason: muscle spasm) Qty: 14 0RF hydrocodone-acetaminophen 5-325 mg tablet 1 tablet PO Q8H PRN (Reason: pain) Qty: 7 0RF No Action lisinopril 20 mg tablet 20 mg PO DAILY Patient Comments: Patient reports he has not been taking it as he should methylprednisolone [Medrol (Herb)] 4 mg tablets,dose pack See Rx Instructions .ROUTE .COMPLEX Qty: 21 0RF Rx Instructions: orally per package directions amoxicillin-pot clavulanate 875-125 mg tablet 1 tablet PO Q12H 7 Days Qty: 14 0RF alprazolam 0.5 mg Tablet 0.5 mg PO TID PRN (Reason: Anxiety) albuterol 90 mcg/actuation Aerosol 90 mcg INHALATION TID PRN (Reason: Shortness Of Breath) cephalexin 500 mg capsule 500 mg PO Q12H Qty: 14 0RF omeprazole 20 mg tablet,delayed release (DR/EC) 20 mg PO DAILY Qty: 60 0RF Follow-up/Referrals: UNKNOWN,DOCTOR [Non-Staff] - 3 Days Time of Disposition: 06:03
[2025-02-22] MEDS: HYDROcodone/acetaminophen (*CRX) 7.5-325 MG TABLET 1 TAB PO (06:03)
[2025-02-22] MEDS: KETOROLAC 15 MG/ML VIAL (*BKC) IM (06:03)
== END 2025-02-22 07:00 | disposition home or self-care (01) ==
PROVIDERS: Emergency Provider Emergency Medicine
DX: G62.9 Polyneuropathy, unspecified (principal); M79.672 Pain in left foot; M79.671 Pain in right foot; J45.909 Unspecified asthma, uncomplicated; I10 Essential (primary) hypertension; F41.9 Anxiety disorder, unspecified; F17.210 Nicotine dependence, cigarettes, uncomplicated
CPT/HCPCS: 96372; 99283; A9270; J1885

== ENCOUNTER 2025-03-30 11:39 | Inpatient (IN) | payer SELFPAY ==
[2025-03-30] VITALS (7 sets, daily range): BP systolic 106–110; BP diastolic 70–95; PULSE 54–88; RESP 15–20; TEMP 36.6–36.8; O2SAT 95–99; BMI 28.0
--- NOTE | ~2025-03-30 | XR_ITS ---
EXAMINATION: XR lumbar puncture diagnostic DATE: 04/02/2025 15:45 INDICATION: Lower extremity weakness and numbness TECHNIQUE: The procedure including the risks and benefits was discussed with the patient. Risks discu ssed included spinal headache, cerebrospinal fluid leak, bleeding, and infection. The patient underst ood the risks and agreed to proceed. A timeout was performed to verify the patient's name, date of , and procedure to be performed. The skin overlying the L3-L4 level was prepped and draped in usual sterile fashion. Subcutaneous 1% lidocaine was used for local anesthesia. A 22 gauge spinal n eedle was advanced under fluoroscopic guidance. The needle was removed and the entry site was cleaned and dressed. There were no immediate complications. A total of 2 fluoroscopic image(s) and one cros stable lateral radiograph were obtained. The amount of fluoroscopy time used during this procedure wa s 0.8 minutes. Patient was returned to the floor. FINDINGS: Real-time fluoroscopy demonstrates the needle at the L3-L4 level. Opening pressure was 29 c m water. (Normal range is variably defined as 6-20 cm water and up to 25 cm water in obese patients. Pressure >25 cm water is one of the modified Dandy criteria for idiopathic intracranial hypertension) . 16 mL of clear, colorless fluid was collected in 4 tubes. IMPRESSION: 1. Successful fluoro-guided lumbar puncture with elevated opening pressure of 29 cm water. Reviewed, dictated and finalized at location A. IMPRESSION: 1. Successful fluoro-guided lumbar puncture with elevated opening pressure of 2 9 cm water.
--- NOTE | ~2025-03-30 | CT_ITS ---
EXAMINATION: CT brain wo con DATE: 03/30/2025 14:26 INDICATION: Progressive weakness of the extremities TECHNIQUE: Computed tomography (CT) of the head was performed without intravenous contrast. Sagittal and coronal reconstructions were performed. The mA was adjusted according to patient size. Iterative reconstruction technique was employed. The dose-length product was 681.00 mGy-cm. COMPARISON: None FINDINGS: No acute intracranial hemorrhage, acute infarction or abnormal extra axial fluid collection. Symmetri c prominence of the sulci consistent with mild age-appropriate diffuse cerebral volume loss. Ventric les are normal and symmetric. No mass/mass effect. The orbits, paranasal sinuses and mastoid air cell s are normal. IMPRESSION: 1. No acute intracranial process. Reviewed, dictated and finalized at location A.
--- NOTE | ~2025-03-30 | MR_ITS ---
EXAMINATION: MR lumbar spine wo/w con DATE: 04/03/2025 16:45 INDICATION: Extremity weakness and paresthesias TECHNIQUE: Magnetic resonance imaging (MRI) of the lumbar spine was performed without and with 18 mL Multihance intravenous contrast. Sequences included sagittal T2-weighted FSE, sagittal T2-weighted FS FSE, and sagittal and axial T1-weighted FSE. Postcontrast sequences included axial T2-weighted FSE, sagittal T1-weighted FSE, and axial and sagittal T1-weighted FS FSE. COMPARISON: CT abdomen and pelvis dated 03/30/2025 FINDINGS: Evaluation mildly limited by mild to moderate motion artifact primarily on the axial sequences. Instr umented L3-S1 anterior spinal fusion with interbody bone graft cages at each level as well as anterio r plate-screw fixation. Alignment is normal. Vertebral body heights are normal. T1 hyperintense L2 he mangioma. Marrow signal is otherwise normal. Unfused discs are normal with normal height and signal. The conus medullaris terminates at L1. There is normal signal in the caudal spinal cord. Paravertebra l soft tissues are unremarkable. The following disc levels are specifically discussed: T12-L1 and L1-L2: The disc does not extend beyond the endplate margin. There is mild bilateral facet joint osteoarthritis. There is no neural foraminal stenosis. There is no central canal stenosis. L2-L3: The disc does not extend beyond the endplate margin. There is mild right and moderate left fac et joint osteoarthritis. There is no neural foraminal stenosis. There is no central canal stenosis. L3-L4: Disc space is fused. There is moderate bilateral facet joint osteoarthritis. There is mild vera ateral neural foraminal stenosis. There is no central canal stenosis. L4-L5: Disc space is fused. There is moderate bilateral facet joint osteoarthritis. There is mild vera ateral neural foraminal stenosis. There is no central canal stenosis. L5-S1: Disc space is fused. There is moderate right and severe left facet joint osteoarthritis. There is minimal bilateral neural foraminal stenosis. There is no central canal stenosis. IMPRESSION: 1. Mild lumbar spondylosis with instrumented L3-S1 anterior spinal fusion. Reviewed, dictated and finalized at location A.
--- NOTE | ~2025-03-30 | CT_ITS ---
EXAMINATION: CT abdomen pelvis w con DATE: 03/30/2025 16:08 INDICATION: Abdominal pain TECHNIQUE: Computed tomography (CT) of the abdomen and pelvis was performed with 100 mL Omnipaque-350 intravenous contrast. Automated exposure control and iterative reconstruction technique were employe d. The dose-length product was 993.16 mGy-cm. COMPARISON: 08/21/2024 FINDINGS: Discoid atelectasis in the bilateral lower lobes. Heart size is normal. No pericardial or pleural eff usion. Liver, gallbladder, spleen, pancreas, bilateral adrenal glands and kidneys are normal. Chronic mild diffuse bladder wall thickening with small bladder diverticulum slightly to the right of midlin e along the posterior bladder wall. Normal appendix. No bowel obstruction. Again seen is scattered mi ld fatty infiltration of the colonic wall likely related to body habitus. No free intraperitoneal gas or fluid. No pathologically enlarged abdominal or pelvic lymphadenopathy. Is symmetric L3-S1 anterio r spinal fusion with interbody bone graft cages and anterior plate and screw fixations at each level. IMPRESSION: 1. No acute intra-abdominal/pelvic process. 2. Mild diffuse bladder wall thickening and small posterior bladder diverticulum suggestive of sequel a of chronic outlet obstruction Reviewed, dictated and finalized at location A. IMPRESSION: 1. No acute intra-abdominal/pelvic process. 2. Mild diffuse bladder wall thickening and small posterior bladder diverticulu m suggestive of sequela of chronic outlet obstruction
--- NOTE | ~2025-03-30 | MR_ITS ---
EXAMINATION: MR cervical spine wo/w con DATE: 04/03/2025 16:44 INDICATION: Extremity weakness and paresthesias TECHNIQUE: Magnetic resonance imaging (MRI) of the cervical spine was performed without and with 18 m L Multihance intravenous contrast. Sequences included sagittal T2-weighted FSE, sagittal T2-weighted FS FSE, sagittal T1-weighted FSE, axial T2-weighted FSE, and axial T1-weighted SE. Postcontrast seque nces included sagittal T1-weighted FS FSE, and axial T1-weighted FS SE. COMPARISON: None FINDINGS: Evaluation moderate to severely limited by significant motion artifact on all sequences including rep eated sequences. Bone alignment is normal. Vertebral body heights are normal. Bone marrow signal in tensity is normal. Mild disc height loss with a very small disc bulges at C3-C4 through C6-C7 resulti ng in only minimal central canal stenosis at each of these levels. There is suggestion of at least mo derate cervical facet and uncovertebral osteoarthritis at multiple levels. There is mild neural from stenosis on the left at C3-C4, bilaterally at C4-C5, C5-6 and C6-C7. No cord signal abnormalities or abnormally enhancing lesions identified. IMPRESSION: 1. Moderate to severely limited study due to motion artifact. 2. Mild to moderate cervical spondylosis with only minimal central canal stenosis. 3. No evident cord signal abnormalities or abnormally enhancing lesions identified. Reviewed, dictated and finalized at location A. IMPRESSION: 1. Moderate to severely limited study due to motion artifact. 2. Mild to moderate cervical spondylosis with only minimal central canal stenos is. 3. No evident cord signal abnormalities or abnormally enhancing lesions identif ied.
--- NOTE | ~2025-03-30 | US_ITS ---
EXAMINATION: US renal BI DATE: 04/09/2025 18:50 INDICATION: ADRIAN TECHNIQUE: Multiple grayscale and Doppler ultrasound images of the kidneys were obtained. COMPARISON: CT abdomen pelvis 03/30/2025 FINDINGS: The right kidney measures 10.5 x 4.9 x 5.5 cm. The left kidney measures 11.1 x 6.2 x 5.9 cm. The kidn eys demonstrate normal parenchymal echogenicity. There is no hydronephrosis. The bladder is emptied b y a Cortez catheter. IMPRESSION: Unremarkable renal sonogram findings. Reviewed, dictated and finalized at location K.
--- NOTE | ~2025-03-30 | XR_ITS ---
XR chest 1V portable 03/30/2025 14:26 Indication: Weakness Procedure: AP portable chest Comparison: No prior studies for comparison. Findings: Heart size normal. There is subsegmental atelectasis left lung base. No pleural effusion or pneumothorax. No acute osseous abnormality. No focal pneumonia or edema. Impression: 1: Left basilar atelectasis. Reviewed, dictated and finalized at location A. Impression: 1: Left basilar atelectasis.
--- NOTE | ~2025-03-30 | MR_ITS ---
EXAMINATION: MR thoracic spine wo/w con DATE: 04/03/2025 16:46 INDICATION: Extremity weakness and paresthesia TECHNIQUE: Magnetic resonance imaging (MRI) of the thoracic spine was performed without and with 18 m L Multihance intravenous contrast. Sagittal localizer T1-weighted FSE of the cervicothoracic spine wa s obtained. Sequences included sagittal T2-weighted FSE, sagittal T2-weighted FS FSE, sagittal T1-ko ghted FSE and axial T1-weighted SE. Postcontrast sequences included axial T2-weighted FSE, sagittal T 1-weighted FS FSE, and axial T1-weighted FS SE. COMPARISON: None FINDINGS: There is moderate motion artifact on the axial images mild motion artifact on the sagittal postcontra st images. Alignment is normal.Minimal anterior vertebral body height loss at T8.Mild fibrofatty dege nerative endplate changes long anterior margins of many of the endplates from T5-T9. Small T1 hyperin tense hemangioma at marrow signal.There is multilevel mild disc height loss from T3-T4 through T9-T10 .Mild disc bulge atT3-T4with only negligible central canal stenosis. Remainder of the thoracic centra l canal is patent throughout. No definitive cord signal abnormalities or abnormally enhancing lesion s. The conus terminates at L1. IMPRESSION: 1. Mild thoracic spondylosis. 2. No definitive cord signal abnormalities or abnormally enhancing lesions. Evaluation of cord signal is however moderately limited by motion artifact and relatively mild on the sagittal images but mode rate severity on the axial imaging. Reviewed, dictated and finalized at location A. IMPRESSION: 1. Mild thoracic spondylosis. 2. No definitive cord signal abnormalities or abnormally enhancing lesions. Annette luation of cord signal is however moderately limited by motion artifact and rel atively mild on the sagittal images but moderate severity on the axial imaging.
--- NOTE | ~2025-03-30 | MR_ITS ---
MR brain/brain stem wo/w con Ordering provider: Daina Galicia DO History: 49 years Male with . Fasciculations spasticity . Comparison: CT head performed on March 30, 2025. Technique: MRI brain was performed with and without contrast. 17 mL MultiHance is given IV. FINDINGS: BONES: Normal. CRANIOCERVICAL JUNCTION: normal. PITUITARY: Normal. MAJOR INTRACRANIAL VESSELS: Normal flow void. OPTIC NERVES AND CRANIAL NERVES VII AND VIII COMPLEXES: Grossly normal. BRAIN PARENCHYMA AND CSF SPACES: Small focus of T2 and FLAIR hyperintensity in the right frontal lob e most likely ischemic.. The brainstem and cerebellum are normal. No acute or chronic intracranial he morrhage. No extra axial fluid collections. Diffusion weighted and ADC mapping images reveal no recen t ischemia. No midline shift or mass effect. No abnormal contrast enhancement. PARANASAL SINUSES: Bilateral ethmoid sinus disease. Normal. MASTOIDS: Normal SUPERFICIAL/SURROUNDING SOFT TISSUES: Normal. IMPRESSION: 1. Small focus in the right frontal lobe white matter most likely ischemic. 2. No evidence of acute intracranial process. 3. No abnormal enhancement. Reviewed, dictated and finalized at location A.
--- OUTSIDE RECORDS SUMMARY | 2025-03-30 11:42 | XMS_ITS | Clinical Summary ---
Author Organization [facility] resmio Address [address] [place] [address] Care Team Providers Care Education Intern Name Role Phone Fareed Nuñez MD Primary Care Provider Zafar Washington MD Unavailable [phone] Source Comments [facility] resmio,non-owned Affiliates and Associated Physician Practices is amultiple site organization consisting of ambulatory clinics and hospital sitesin [place], [place], [place] and [place]. This disclosure is being madepursuant to the Care Everywhere program and may not contain all information available regarding this patient. Last updated 18.[facility] resmio Allergies No known active allergies Medications * This document contains information received from the source organization and may not represent a complete record from that organization. * Be aware that medications may not be up to date on this document. Alwaysverify current medications with the patient. acetaminophen (Tylenol) 325 MG tablet Take 1 (one) tablet by mouth as needed for Fever or Pain Maximum allowable Acetaminophen amount = 4 Grams (4000 mg) / 24 hours. Active albuterol HFA (Proventil; Ventolin; Proair) 108 (90 Base) MCG/ACT inhalerIndication s:Wheezing,Tobacc o use Inhale 2 (two) puffs by mouth every 6 hours as needed 54 g 3 11/06/19 25 Active ALPRAZolam (Xanax) 0.5 MG tabletIndications :ERNESTINE (generalized anxiety disorder),Panic disorder Take 1 (one) tablet by mouth 3 times daily as needed for Anxiety 90 tablet 3 01/08/20 25 Active hydroCHLOROthiazi de (Hydrodiuril) 25 MG tablet Take 1 (one) tablet by mouth once daily 02/09/20 25 026 Active folic acid (Folvite) 1 MG tablet Take 1 (one) tablet by mouth once daily 90 tablet 1 02/12/20 25 Active levothyroxine (Synthroid) 50 MCG tabletIndications :Acquired hypothyroidism Take 1 (one) tablet by mouth once daily 90 tablet 4 02/19/20 25 Active folic acid (Folvite) 1 MG tabletIndications :Folate deficiency Take 1 (one) tablet by mouth once daily 90 tablet 4 02/19/20 25 Active pregabalin (Lyrica) 100 MG capsule Take 1 (one) capsule by mouth 3 times daily 90 capsule 1 02/23/20 25 Active HYDROcodone-aceta minophen ([place]) 5-325 MG tabletIndications :Polyneuropathy Take 1 (one) tablet by mouth every 6 hours as needed for Pain 30 tablet 03/19/20 25 025 Active HYDROcodone-aceta minophen ([place]) 5-325 MG tabletIndications :Polyneuropathy Take 1 (one) tablet by mouth every 6 hours as needed for Pain 20 tablet 02/23/20 25 025 Discontin ued(Reord er) HYDROcodone-aceta minophen ([place]) 5-325 MG tabletIndications :Polyneuropathy Take 1 (one) tablet by mouth every 6 hours as needed for Pain 20 tablet 03/02/20 25 025 Discontin ued(Reord er) Active Problems Problem Noted Date Diagnosed Date Elevated LFTs 02/15/2023 Blood in the stool 02/15/2023 Generalized abdominal pain 02/15/2023 Early satiety 02/15/2023 Chills 12/19/2016 Sore throat 12/19/2016 Elevated BP 05/10/2015 Tobacco use disorder 05/10/2015 Low back pain 02/01/2010 Overview (09/11/2015): Resolved Problems Problem Noted Date Diagnosed Date Resolved Date Diarrhea 02/15/2023 03/15/2023 Essential hypertension 05/10/201505/10 Encounters Date Type Department Care Team Description 03/18/2025 Telephone [facility] - Family Medicine [address] [place] [id number] Fareed Nuñez MD Neuropathy 03/02/[address] [address] Fareed Nuñez MD Update 02/22/[address] [address] Fareed Nuñez MD Question 02/22/2025 Orders Only [address] [address] Fareed Nuñez MD Polyneuropathy 02/19/[address] [address] Fareed Nuñez MD Neuropathy 02/18/2025 Results Follow-Up [address] [address] Fareed Nuñez MD 02/17/[address] [address] Fareed Nuñez MD Order 02/11/2025 9:15 AM CDT Office Visit [address] [address] Fareed Nuñez MD Polyneuropathy (Primary Dx) 02/08/2025 Nurse Triage [address] [address] Fareed Nuñez MD Neuropathy; Numbness 01/06/[address] [address] Fareed Nuñez MD Refill Request from Last 3 Months Immunizations Immunization Administration Dates Next Due Covid WinAd primary monoval ent 12+ yr 0.3mL Purple cap 03/01/2021,03/01/2021,02/08/2021,2020 HEP A VACCINE, ADULT 10/30/2002 INFLUENZA VACCINE, QUADR. (F LUZONE; FLULAVAL; FLUARIX; AFLURIA QUADRIVALENT; 6MO+), 0.5 ML (IIV4) 10/31/2020,07/25/2018,07/30/2017,2015 TDAP (7yrs+) 06/04/2017 TDAP, HISTORIC VACCINE 02/23/2023 Family History Medical History Relation Name Comments Negative Family History Other Relation Name Status Comments Brother Alive Father Suicide Mother Accident Other Social History Tobacco Use Types Packs/Day Years Used Date Smoking Tobacco: Every Day Cigarettes 0.5 33.8 Started: 1991 Passive Smoke Exposure: Current Smokeless Tobacco: Never Tobacco Cessation:Ready to Q uit: Not Asked; Counseling Given: Not Answered Alcohol Use Standard Drinks/Week Comments Yes 28 (1 standard drink = 0.6 oz pu re alcohol) beer or vodka PHQ-2 Answer Date Recorded Patient Health Questionnaire-2 Score 2 01/28/2025 Sex and Gender Information Value Date Recorded Sex Assigned at Male 08/30/2021 12:31 PM CDT Legal Sex Male 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 Gender Identity Male 05/22/2018 10:53 AM CDT Sexual Orientation Straight 08/30/2021 12 :31 PM CDT 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 Not on file Not on file Not on file Last Filed Vital Signs Vital Sign Reading Time Taken Comments Blood Pressure 140/86 02/11/2025 9:37 AM CDT Pulse 108 02/11/2025 9:37 AM CDT Temperature 36.7 C (98.1 F) 02/11/2025 9:37 AM CDT Respiratory Rate 16 02/11/2024 1:01 PM CDT Oxygen Saturation 95% 02/11/2025 9:37 AM CDT Inhaled Oxygen Concentration - - Weight 90 kg (198 lb 6.4 oz) 02/11/2025 9:37 AM CDT Height 175.3 cm (5' 9) 02/11/2025 9:37 AM CDT Body Mass Index 29.3 02/11/2025 9:37 AM CDT Plan of Treatment Upcoming Encounters Date Type Department Care Team ([facility] Contact Info) Description 03/31/2025 10:00 AM CDT Appointment [place] [phone] [place] [phone] Health Maintenance Due Date Last Done Comments COLOGUARD (AGES 45-75) - COLON CA SCREENING 1975 CT COLONOGRAPHY - COLON CA SCREENING 1975 FIT - COLON CA SCREENING 1975 FLEX SIG - COLON CA SCREENING 1975 HEPATITIS B VACCINE (1 of 3 - 19+ 3-dose series) 1994 COVID-19 VACCINE ( - season) 2024 03/01/2021, 03/01/2021, 02/08/2021, Additional history exists ZOSTER VACCINE (1 of 2) 2025 INFLUENZA VACCINE (Season Ended) 2025 10/31/2020, 07/25/2018, 07/30/2017, Additional history exists LIPID TESTING 10/31/2025 10/31/2020, 07/23/2019 SCREENING FOR DIABETES 02/12/2028 , 02/19/2023, 06/06/2022, Additional history exists DTAP/TDAP/TD VACCINES (3 - Td or Tdap) 02/23/2033 02/23/2023, 06/04/2017 COLON MONITORING 06/04/2033 06/04/2023, 06/04/2023 COLONOSCOPY - COLON CA SCREENING 06/04/2033 06/04/2023, 06/04/2023 Colorectal Cancer Screening 06/04/2033 DEPRESSION SCREENING Completed 01/29/2025, 11/21/2023, 03/13/2023, Additional history exists HEPATITIS C SCREENING Discontinued 02/11/2025, 023 HIV SCREENING Discontinued 02/11/2025 HIB VACCINE Aged Out No longer eligi ble based on patient's age to complete this topic HPV VACCINE Aged Out No longer eligi ble based on patient's age to complete this topic MENINGOCOCCAL (Group B) VACCINE SHARED DECISION-MAKING Aged Out No longer eligible based on patient's age to complete this topic MENINGOCOCCAL GROUPS A/C/Y/W VACCINE Aged Out No longer eligible based on patient's age to complete this topic Medical Devices Implanted Type Area Teacher Vocational Training Device Identifier Shelf Expiration Date Model / Serial / Lot Putty Dbm Progenix 5cc Implanted:Qty: 1 on 02/04/2013 by Diogenes Stuart MD at [facility] Spine Lumbar Sp[employer] 07/09/2014 [id number] / / [id number] Jam Lordotic Implant 15 Mm D X 20mm L Implanted:Qty: 1 on 02/04/2013 by Diogenes Stuart MD at [facility] Spine Lumbar 01/16/2017 [id number] 00 / / [id number] 37 Mm X 65 Mm Plate Jam Implanted:Qty: 1 on 02/04/2013 by Diogenes Stuart MD at [facility] Spine Lumbar [id number] 03 / / Jam 26 Mm Variable Screws Implanted:Qty: 6 on 02/04/2013 by Diogenes Stuart MD at [facility] Spine Lumbar 07.23263.0 03 / / Jam 24 Mm Variable Screws Implanted:Qty: 2 on 02/04/2013 by Diogenes Stuart MD at [facility] Spine Lumbar 07.61136.0 02 / / Scrw Canc Full Thrd 4mm X 24mm Implanted:Qty: 1 on 02/04/2013 at [facility] 206.024 / / Putty Grft Bone Dbm Progenix 10cc Implanted:Qty: 1 on 02/04/2013 by Diogense Stuart MD at [facility] Spine Lumbar Medtronic [employer] 07/28/2014 [id number] / / [id number] Putty Grft Bone Dbm Progenix 10cc Implanted:Qty: 1 on 02/04/2013 by Diogenes Stuart MD at [facility] Spine Lumbar Medtronic [employer] 10/08/2014 [id number] / / [id number] Jam Spine Interbody Implant 15 Mm D X 20 Mm L Implanted:Qty: 1 on 02/04/2013 by Diogenes Stuart MD at [facility] Spine Lumbar 09/18/2017.80237.0 / / [id number] Jam Spine Interbody Implant 15 Mm D X 20 Mm L Implanted:Qty: 1 on 02/04/2013 by Diogenes Stuart MD at [facility] Spine Lumbar 01/16/2015 [id number] 00 / / [id number] Jam Interbody Implant 15 Mm D X 20 Mm L Implanted:Qty: 1 on 02/04/2013 by Diogenes Stuart MD at [facility] Spine Lumbar 09/18/2017.67331.0 / / [id number] Jam Spine Interbody Implant 15 Mm S X 20 Mm L Implanted:Qty: 1 on 02/04/2013 by Diogenes Stuart MD at [facility] Spine Lumbar 11/18/2015 [id number] 00 / / [id number] Jam Plate 37 Mm X 16 Implanted:Qty: 2 on 02/04/2013 by Diogenes Stuart MD at [facility] Spine Lumbar [id number] 03 / / Lordotic Interbody Implant 15 Mm D X 20 Mml Implanted:Qty: 1 on 02/04/2013 by Diogenes Stuart MD at [facility] Spine Lumbar 01/16/2017 [id number] / / [id number] Procedures Procedure Name Priority Date/Time Associated Diagnosis Comments HEPATITIS C AB W/RFLX TO HCV RNA QN PCR Routine 02/11/2025 11:13 AM CDT Polyneuropathy T4 FREE 02/11/2025 11:05 AM CDT HEMOGLOBIN A1C Routine 02/11/2025 11:05 AM CDT Polyneuropathy HIV-1 HIV-2 ANTIBODY + HIV P24 AG PANEL Routine 02/11/2025 11:05 AM CDT Polyneuropathy ENZO BLOOD SCREEN W/REFLEX TITER Routine 02/11/2025 11:05 AM CDT Polyneuropathy TSH REFLEX FREE T4 Routine 02/11/2025 11 :05 AM CDT Polyneuropathy VITAMIN B12 FOLATE PANEL Routine 02/11/2025 11:05 AM CDT Polyneuropathy ENDOSCOPY, COLON, DIAGNOSTIC Routine 06/04/2023 8:11 AM CDT Diarrhea, unspecified type Blood in the stool LIPID PROFILE Routine 10/31/2020 2:55 PM GENERAL ASSEMBLER Benign essential hypertension Screening, lipid from Last 3 Months or Most Recently Relevant to Health Maintenance Results * HEPATITIS C AB W/RFLX TO HCV RNA QN PCR (02/11/2025 11:13 AM CDT) Pathologist [facility] Hepatitis C Antibody NON-REACTI VE NON-REACT SHELLIE Whatever Comment: HCV antibody was non-reactive. There is no laboratory evidence of HCV infection. In most cases, no further action is required. However, if recent HCV exposure is suspected, a test for HCV RNA (test code 10471) is suggested. For additional information please refer to http://education.(In)Touch Network/faq/DBM81u9 (This link is being provided for informational/ educational purposes only.) Test Performed at: [facility] [id number] [place] [address] JENNIFER HOOVER MD Blood BLOOD SPECIMEN / Unknown 02/11/2025 11:13 AM CDT 02/11/2025 11:14 AM CDT us Fareed Nuñez MD LAB - CHEMISTRY ORDERABLES F inal Result [facility] [address] [place] [address] * HIV-1 HIV-2 ANTIBODY + HIV P24 AG PANEL (02/11/2025 11:05 AM CDT) HIV Screen 4th Generation w Reflex NON-REACT SHELLIE NON-REACT SHELLIE [facility] Comment: HIV-1 antigen and HIV-1/HIV-2 antibodies were not detected. There is no laboratory evidence of HIV infection. PLEASE NOTE: This information has been disclosed to you from records whose confidentiality may be protected by state law. If your state requires such protection, then the state law prohibits you from making any further disclosure of the information without the specific written consent of the person to whom it pertains, or as otherwise permitted by law. A general authorization for the release of medical or other information is NOT sufficient for this purpose. For additional information please refer to http://education.(In)Touch Network/faq/AGG238 (This link is being provided for informational/ educational purposes only.) The performance of this assay has not been clinically validated in patients less than 2 years old. Test Performed at: [facility] [id number] [address] JENNIFER HOOVER MD Blood BLOOD SPECIMEN / Unknown 02/11/2025 11:05 AM CDT 02/11/2025 11:05 AM CDT Fareed Nuñez MD LAB - CHEMISTRY ORDERABLES F inal Result Performing Organization Address [facility] de Phone Number [facility] [address] [place] [address] * (ABNORMAL) TSH REFLEX FREE T4 (02/11/2025 11:05 AM CDT) Pathologist [facility] TSH with Reflex FT4 17.64(H) 0.40 - 4.50 mIU/L [facility] Comment: Test Performed at: [facility] [id number] [address] JENNIFER HOOVER MD Blood BLOOD SPECIMEN / Unknown 02/11/2025 11:05 AM CDT 02/11/2025 11:05 AM CDT Fareed Nuñez MD LAB - CHEMISTRY ORDERABLES F inal Result Performing Organization Address City/[facility] Co de Phone Number [facility] [address] [place] [address] * ENZO BLOOD SCREEN W/REFLEX TITER (02/11/2025 11:05 AM CDT) ENZO Screen NEGATIVE NEGATIVE [facility] Comment: ENZO IFA is a first line screen for detecting the presence of up to approximately 150 autoantibodies in various autoimmune diseases. A negative ENZO IFA result suggests an ENZO-associated autoimmune disease is not present at this time, but is not definitive. If there is high clinical suspicion for Sjogren's syndrome, testing for anti-SS-A/Ro antibody should be considered. Anti-Meg-1 antibody should be considered for clinically suspected inflammatory myopathies. AC-0: Negative International Consensus on ENZO Patterns (https://doi.org/10.1515/btsj-0083-9216) For additional information, please refer to http://education.ZeroTurnaround.DoCircuits/faq/OIP251 (This link is being provided for informational/ educational purposes only.) Test Performed at: [facility] [address] [place] [address] JENNIFER HOOVER MD Blood BLOOD SPECIMEN / Unknown 02/11/2025 11:05 AM CDT 02/11/2025 11:05 AM CDT Fareed Nuñez MD LAB - CHEMISTRY ORDERABLES F inal Result [facility] [id number] [place] [address] * HEMOGLOBIN A1C (HgbA1C) (02/11/2025 11:05 AM CDT) Pathologist [facility] Hemoglobin A1c 5.4 <5.7 % of total Hgb [facility] Comment: For the purpose of screening for the presence of diabetes: <5.7% Consistent with the absence of diabetes 5.7-6.4% Consistent with increased risk for diabetes (prediabetes) > or =6.5% Consistent with diabetes This assay result is consistent with a decreased risk of diabetes. Currently, no consensus exists regarding use of hemoglobin A1c for diagnosis of diabetes in children. According to [place] Diabetes Association (ADA) guidelines, hemoglobin A1c <7.0% represents optimal control in non- diabetic patients. Different metrics may apply to specific patient populations. Standards of Medical Care in Diabetes(ADA). Test Performed at: [facility] [address] JENNIFER HOOVER MD Blood BLOOD SPECIMEN / Unknown 02/11/2025 11:05 AM CDT 02/11/2025 11:05 AM CDT Fareed Nuñez MD LAB - CHEMISTRY ORDERABLES F inal Result Performing Organization Address [facility] de Phone Number [address] [address] * (ABNORMAL) VITAMIN B12 FOLATE PANEL (02/11/2025 11:05 AM CDT) Pathologist [facility] Vitamin B12 634 200 - 1100 pg/mL [facility] Folate 2.6(L) ng/mL [facility] Comment: Reference Range Low: <3.4 Borderline: 3.4-5.4 Normal: >5.4 Test Performed at: [facility] [address] JENNIFER HOOVER MD Blood BLOOD SPECIMEN / Unknown 02/11/2025 11:05 AM CDT 02/11/2025 11:05 AM CDT Fareed Nuñez MD LAB - CHEMISTRY ORDERABLES F inal Result Performing Organization Address [facility] de Phone Number [address] [address] * T4 FREE (02/11/2025 11:05 AM CDT) Pathologist [facility] T4 Free 0.9 0.8 - 1.8 ng/dL [facility] Comment: Test Performed at: [facility] [address] JENNIFER HOOVER MD 02/11/2025 11:0 5 AM CDT 02/11/2025 11:05 AM CDT Fareed Nuñez MD LAB - CHEMISTRY ORDERABLES F inal Result Performing Organization Address [facility] de Phone Number [address] [address] * ENDOSCOPY, COLON, DIAGNOSTIC (06/04/2023 8:11 AM CDT) Report Endoscopy POC _ Patient Name: Jennifer Rodriguez Procedure Date: 06/04/2023 8:11 AM Date of : 1975 Admit Type: Outpatient Age: 48 Gender: Male Attending MD: Fariha Aceves MD, [id number] _ Procedure: Colonoscopy Indications: Screening for colorectal malignant neoplasm, Incidental - Change in bowel habits, Incidental - Weight loss Providers: Fariha Aceves MD (Doctor) Referring MD: Fareed Nuñez MD (Referring MD) Medicines: Monitored Anesthesia Care Complications: No immediate complications. _ Estimated Blood Loss: Estimated blood loss: none. Procedure: Pre-Anesthesia Assessment: - Prior to the procedure, a History and Physical was performed, and patient medications and allergies were reviewed. The patient's tolerance of previous anesthesia was also reviewed. The risks and benefits of the procedure and the sedation options and risks were discussed with the patient. All questions were answered, and informed consent was obtained. Prior Anticoagulants: The patient has taken no anticoagulant or antiplatelet agents. After reviewing the risks and benefits, the patient was deemed in satisfactory condition to undergo the procedure. After I obtained informed consent, the scope was passed under direct vision. Throughout the procedure, the patient's blood pressure, pulse, and oxygen saturations were monitored continuously. The Colonoscope was introduced through the anus and advanced to the terminal ileum. The patient tolerated the procedure well. The quality of the bowel preparation was evaluated using the BBPS ([place] Bowel Preparation Scale) with scores of: Right Colon = 2 (minor amount of residual staining, small fragments of stool and/or opaque liquid, but mucosa seen well), Transverse Colon = 2 (minor amount of residual staining, small fragments of stool and/or opaque liquid, but mucosa seen well) and Left Colon = 2 (minor amount of residual staining, small fragments of stool and/or opaque liquid, but mucosa seen well). The total BBPS score equals 6. The quality of the bowel preparation was fair. Findings: The perianal and digital rectal examinations were normal. External and internal hemorrhoids were found during retroflexion. The hemorrhoids were medium-sized. Two hyperplastic polyps were found in the rectum. The polyps were diminutive in size. These polyps were removed with a cold biopsy forceps. Resection and retrieval were complete. The exam was otherwise without abnormality on direct and retroflexion views. Biopsies for histology were taken with a cold forceps from the right colon and left colon for evaluation of microscopic colitis. The terminal ileum appeared normal. Biopsies were taken with a cold forceps for histology. _ Impression: - Preparation of the colon was fair. - External and internal hemorrhoids. - Two diminutive polyps in the rectum, removed with a cold biopsy forceps. Resected and retrieved. - The examination was otherwise normal on direct and retroflexion views. - The examined portion of the ileum was normal. Biopsied. - Biopsies were taken with a cold forceps from the right colon and left colon for evaluation of microscopic colitis. Recommendation: - Await pathology results. Procedure Code(s): --- Professional --- 99313, Colonoscopy, flexible; with biopsy, single or multiple --- Technical --- 02882, Colonoscopy, flexible; with biopsy, single or multiple Diagnosis Code(s): --- Professional --- Z12.11, Encounter for screening for malignant neoplasm of colon K64.8, Other hemorrhoids D12.8, Benign neoplasm of rectum --- Technical --- Z12.11, Encounter for screening for malignant neoplasm of colon K64.8, Other hemorrhoids D12.8, Benign neoplasm of rectum CPT copyright 2020 [place] [employer]. All rights reserved. The codes documented in this report are preliminary and upon senior engineering team leader review may be revised to meet current compliance requirements. __ Fariha Aceves MD 06/04/2023 9:38:20 AM Number of Addenda: 0 Note Initiated On: 06/04/2023 8:11 AM [facility] ENDOSCOPY 06/04/2023 8:11 AM CDT us Tiki Lam STEAM OVEN OPERATOR-CLAIMS ANALYST GI PROCEDURE ORDERABLES Edited Result - Final [facility] [place] [address] * (ABNORMAL) LIPID PROFILE (10/31/2020 2:55 PM GENERAL ASSEMBLER) Cholesterol 281(H) <200 mg/dL [facility] ACCOUNT BILL Triglycerides 107 <150 mg/dL [facility] ACCOUNT BILL HDL Cholesterol 121 >40 mg/dL [facility] ACCOUNT BILL VLDL Calculated 21 <=30 mg/dL [facility] ACCOUNT BILL LDL Calculated 139(H) <130 mg/dL [facility] ACCOUNT BILL Comment:FASTING Blood BLOOD SPECIMEN / Unknown 10/31/2020 2:55 PM GENERAL ASSEMBLER 10/31/2020 Narrative Resulting Agency Comment Lab Testing performed at: [facility] [address] [facility] [id number] us Fareed Nuñez MD LAB - CHEMISTRY ORDERABLES F inal Result [facility] ACCOUNT BILL [address] [place] [address] from Last 3 Months or Most Recently Relevant to Health Maintenance Insurance Advance Directives * FULL RESUSCITATION (Latest Code Status on File) Date Activated Date Inactivated Comments 02/04/2013 1:53 PM 02/05/2013 12:52 PM Care Teams Education Intern Relationship Specialty Start Date End Date Fareed Nuñez MD [address] [facility] [address] [place] [address] PCP - General Family Medicine 07/22/19 [place] [address] [facility] [address] [place] [address] Methods And Procedures Analyst/Oncologist Hematology and Oncology 07/31/23
--- OUTSIDE RECORDS SUMMARY | 2025-03-30 11:42 | XMS_ITS | Clinical Summary ---
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 Name Role Phone Fareed Nuñez MD Primary Care Provider + Allergies Active Allergy Reactions Criticality Noted Date Comments Tramadol Itching Low 02/08/2025 Medications albuterol HFA (PROVENTIL HFA,VENTOLIN HFA,PROAIR HFA) 90 mcg/actuation inhaler Inhale 2 puffs every 6 (six) hours as needed for shortness of breath or wheezing 3 Active ALPRAZolam (XANAX) 0.5 mg tablet TAKE 1 TABLET BY MOUTH THREE TIMES A DAY NEEDED FOR ANXIETY 3 Active gabapentin (NEURONTIN) 300 mg capsule Take 1 capsule (300 mg total) by mouth 3 (three) times a day Take 1 tablet on day 1, Then take 2 tablets on day 2, Then take 3 tablets on day 3 and every day after that as instructed by your doctor. 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 The medicine you are being prescribed today is a controlled substance. It should only be taken as directed. Do not take this medicine and drive or operate heavy machinery. Do not drink alcohol while taking this medicine. List of counselors given. Encouraged to seek therapy Assessment & Plan (07/25/2018 1:01 PM CDT): Improved with fluoxetine. Will continue current dose. Advised not to drink alcohol with medication. Assessment & Plan (05/26/2018 12:00 PM CDT): Attempt changes in medication Essential hypertension 09/06/2016 Overview (02/07/2017): Essential hypertension Assessment & Plan (04/02/2019 10:51 AM CDT): Hypertension is controlled. Dietary sodium restriction. Weight loss. Stop smoking. Blood pressure will be reassessed at the next regular appointment. Tobacco use 09/06/2016 Overview (02/07/2017): Tobacco abuse Alcohol abuse 09/06/2016 Overview (02/07/2017): ETOH abuse Cannabis dependence 09/06/2016 Overview (02/07/2017): Marijuana dependence Low back pain 02/01/2010 Overview (01/15/2023): Encounters Date Type Department Care Team Description 02/08/2025 2:58 PM CDT - 02/08/2025 7:[address] [facility] Emergency Department [address] [place] [id number] Darryl Ron, Leg swelling (Primary Dx); Neuropathy Discharge Disposition: Discharge to home or self care 01/29/2025 8:26 PM CDT - 01/30/2025 4:17 AM CDT Emergency [facility] Emergency Department [address] [place] [id number] Darron Noel MD Other polyneuropathy (Primary Dx) Discharge Disposition: Discharge to home or self care from Last 3 Months Immunizations Immunization Administration Dates Next Due Influenza, Quadrivalent, Spl it, Preservative Free, Intramuscular 10/31/2020,07/25/2018,07/30/2017,10/18 Pfizer SARS-CoV-2 Monovalent Vaccination (12+ Yrs) PURPLE 03/01/2021,02/08/2021 Tdap 06/04/2017 Surgical History Surgery Date Site/Laterality Comments SPINAL FUSION Spinal fusion, lumbar Medical History Medical History Date Comments Hypertension Hypertension Anxiety disorder Anxiety UTI (urinary tract infection) Smoker EtOH dependence (HCC) 6 drinks p er day Social History Tobacco Use Types Packs/Day Years Used Date Smoking Tobacco: Every Day Cigarettes 0.5 20 Smokeless Tobacco: Current Tobacco Cessation:Ready to Q uit: Not Asked; Counseling Given: Not Answered Alcohol Use Standard Drinks/Week Comments Yes 0 (1 standard drink = 0.6 oz pur e alcohol) Social Connection and Isolat ion Panel [NHANES] Answer Date Recorded In a typical week, how many times do you talk on the phone with family, friends, or neighbors? More than three times a week 03/05/2023 How often do you get togethe r with friends or relatives? More than three times a week 03/05/2023 How often do you attend chur ch or orthodoxy services? Never 03/05/2023 Do you belong to any clubs o r organizations such as rastafari groups, unions, fraternal or athletic groups, or school groups? No 03/05/2023 How often do you attend meet ings of the clubs or organizations you belong to? Never 03/05/2023 Are you , , di vorced, , never , or living with a partner? 03/05/2023 Overall Financial Resource Strain (CARDIA) Answe r Date Recorded How hard is it for you to pa y for the very basics like food, housing, medical care, and heating? Not hard at all 03/05/2023 PHQ-2 Answer Date Recorded PHQ-2 Score 0 06/24/2019 Hunger Vital Sign Answer Date Recorded Within the past 12 months, y ou worried that your food would run out before you got the money to buy more. Never true 03/05/20 23 Within the past 12 months, t he food you bought just didn't last and you didn't have money to get more. Never true 03/05/2023 PRAPARE - Transportation Answer Date Re corded In the past 12 months, has l ack of transportation kept you from medical appointments or from getting medications? No 12/2022 In the past 12 months, has l ack of transportation kept you from meetings, work, or from getting things needed for daily living? No 03/05/2023 Housing Stability Vital Sign Answer Emir e Recorded In the last 12 months, was t here a time when you were not able to pay the mortgage or rent on time? No 03/05/2023 In the last 12 months, how many places have you lived? 2 03/05/2023 In the last 12 months, was t here a time when you did not have a steady place to sleep or slept in a senior living (including now)? No 03/05/2023 Personal Safety Answer Date Recorded Have you ever been in or are you currently in a harmful physical or emotional relationship or is someone making you feel afraid or unsafe? 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 Gender Identity Male 02/01/2021 8:24 AM CDT Sexual Orientation Straight 02/01/2021 8: 24 AM CDT Obstetrics History Last Filed Vital Signs Vital Sign Reading Time Taken Comments Blood Pressure 156/99 02/08/2025 7:09 PM CDT Pulse 87 02/08/2025 7:09 PM CDT Temperature 36.7 C (98.1 F) 02/08/2025 10:27 AM CDT Respiratory Rate 18 02/08/2025 7:09 PM CDT Oxygen Saturation 97% 02/08/2025 7:09 PM CDT Inhaled Oxygen Concentration - - Weight 90.9 kg (200 lb 6.4 oz) 02/08/2025 10:27 AM CDT Height 175.3 cm (5' 9) 01/29/2025 4:47 PM CDT Body Mass Index 29.59 01/29/2025 4:47 PM CDT Plan of Treatment Health Maintenance Due Date Last Done Comments Colon Cancer Screening-Colonoscopy 1975 Hepatitis C Screening 1975 Hepatitis B Screening 1993 Regular Well Visit/Exam 18-64 1993 Pneumococcal vaccine <65 (1 of 2 - PCV) 1994 Depression Screening 08/18/2019 08/18/2018, 07/25/2018, 07/30/2017 Covid-19 Vaccine (3 - 2023-2 5 season) 2024 03/01/2021, 02/08/2021 Influenza Vaccine (Season Ended) 2025 10/31/2020, 07/25/2018, 07/30/2017, Additional history exists DTaP/Tdap/Td Vaccine (3 - Td or Tdap) 02/23/2033 02/23/2023, 06/04/2017 Procedures Procedure Name Priority Date/Time Associated Diagnosis Comments ECG 12-LEAD STAT 02/08/2025 5:21 PM CDT PRO B-TYPE NATRIURETIC PEPTIDE STAT 02/08/2025 5:20 PM CDT TROPONIN T HIGH-SENSITIVITY SERIES (BASELINE, 2HR, 4HR, 6HR) STAT 02/08/2025 5:20 PM CDT CTA CHEST ABDOMEN PELVIS ED 02/08/2025 4:33 PM CDT EGFR STAT 02/08/2025 10:42 AM CDT DIFFERENTIAL AUTO STAT 02/08/2025 10: 42 AM CDT COMPREHENSIVE METABOLIC PANEL STAT 02/08/2025 10:42 AM CDT CBC WITH AUTO DIFFERENTIAL STAT 02/08/2025 10:[address] ABDOMEN PELVIS W CONTRAST ED 01/30/2025 1:23 AM CDT URINALYSIS AND REFLEX TO MICROSCOPIC AND CULTURE STAT 01/29/2025 7:06 PM CDT EGFR STAT 01/29/2025 4:49 PM CDT DIFFERENTIAL AUTO STAT 01/29/2025 4:4 9 PM CDT LIPASE STAT 01/29/2025 4:49 PM CDT COMPREHENSIVE METABOLIC PANEL STAT 01/29/2025 4:49 PM CDT CBC WITH AUTO DIFFERENTIAL STAT 01/29/2025 4:49 PM CDT POCT GLUCOSE DEVICE Routine 01/29/2025 4 :47 PM CDT from Last 3 Months Results * ECG 12 lead (02/08/2025 5:21 PM CDT) Ventricular Rate EKG/Min 70 BPM [facility] Atrial Rate 70 BPM [facility] [place]-Interval (MSEC) 174 ms [facility] QRS-Interval (MSEC) 96 ms [facility] QT-Interval (MSEC) 442 ms [facility] QTc 477 ms [facility] P [place] 41 degrees [facility] R [place] -19 degrees [facility] T [place] 20 degrees [facility] Diagnosis Normal sinus rhythm T-wave changes Abnormal ECG No previous ECGs available Confirmed by SULTAN ÁLVAREZ M.D. ([id number]) on 02/08/2025 11:43:05 PM [facility] 02/08/2025 5:21 PM CDT 02/08/2025 11:43 PM CDT Darryl Ron DO ECG ORDERABLES Final Resul t [facility] * Troponin T high-sensitivity series (baseline, 2hr, 4hr, 6hr) (02/08/2025 5:20 PM CDT) Trop T hs <6 <=22 ng/L Comment: Interpretive Data For further hscTnT resources including the diagnostic algorithm and an aid in interpretation, copy and paste this link: [email or web address]://nrl.testcatalog.org/show/hsTrop Current Interpretive Data last revised 2020. Testing performed by: [facility], [address] [place] [address]., [id number] Blood 02/08/2025 5:20 PM CDT 02/08/2025 5:22 PM CDT Darryl Ron DO LAB BLOOD ORDERABLES Final Result [facility] [address] [facility] Department [place] [address] * Pro B-type natriuretic peptide (02/08/2025 5:20 PM CDT) NT-proBNP 52 <=300 pg/mL Comment: Interpretive Comments: A. Dyspnea in Acute Care Setting All Ages: < 300 pg/ml, acute heart failure unlikely. < 50 yrs: 300 - 450 pg/ml, further investigation warranted. > 450 pg/ml, acute heart failure likely. 50 - 74 yrs: 300 - 900 pg/ml, further investigation warranted. > 900 pg/ml, acute heart failure likely . > or = 75 yrs: 450 - 1800 pg/ml, further investigation warranted. > 1800 pg/ml, acute heart failure likely. B. Non-acute Setting < 75 yrs < 125 pg/ml, rules out heart failure. > or = 125 pg/ml, further investigation warranted. > or = 75 yrs < 450 pg/ml, rules out heart failure. > or = 450 pg/ml, further investigation warranted. - Knowledge of each individual patient's NT-proBNP range may be more useful than using similar cut-points for every patient. Please note that marked elevations in NT-proBNP levels may be observed in state other than Left Ventricular Congestive Failure, including: acute coronary syndromes, right heart strain/failure (including pulmonary embolism and cor pulmonale), critical illness, renal failure, as well as advanced age. - References: 1. Aishwarya BANEGAS et.al. Eur Heart J. 2006:27:330-337. 2. Sangita WEISS, Willie WELCH. J. AM [employer] Cardiol: Cardiovasc Imag. 2009;2: 216- 225. Interpretive Data Last Revised Date: 2018. Testing performed by: [facility], [address] [place] [address], [place]., [address] Blood 02/08/2025 5:20 PM CDT 02/08/2025 5:22 PM CDT Darryl Ron DO LAB BLOOD ORDERABLES Final Result [facility] [address] [facility] Department [place] [address] * CTA Chest Abdomen Pelvis (02/08/2025 4:33 PM CDT) Anatomical Region Laterality Modality Body N/A Computed Tomogra phy 02/08/2025 5:03 PM CDT Narrative 02/08/2025 5:10 PM CDT EXAM DESCRIPTION: CTA CHEST ABDOMEN PELVIS REASON FOR STUDY: dissection of aorta reports dealing with int numbness from the waist down x approx 1 month with pain to bilateral feet and knees. Pt reports was seen in ED recently and was told he had neuropathy and discharged with gabapentin. Pt endorsing pain is worsening to bilateral feet and knees (L knee worse than R.) Woke up this AM with swelling to bilateral feet with pain. TECHNIQUE: CTA scan of the chest, abdomen, and pelvis performed without and with intravenous and without oral contrast using helical scanning technique with dynamic intravenous contrast injection. Precontrast images of the chest were acquired. Arterial phase images of the chest, abdomen, and pelvis as well as portal venous phase images of the abdomen were also acquired. Reconstructed coronal and sagittal MPR images reviewed. All images stored on PACS. 3D MIP images rendered on scanning unit and reviewed at time of interpretation. Automated exposure control was used as a dose optimization technique for this examination. CONTRAST TYPE/DOSE: 100mL of IOVERSOL 350 MG IODINE/ML INTRAVENOUS SYRINGE injected via intravenous COMPARISON: CT abdomen and pelvis 01/30/2025 FINDINGS: VASCULATURE No thoracic aortic dissection, aneurysm, intramural hematoma, or evidence of penetrating atherosclerotic ulcer. No identified central pulmonary embolus. No large vessel occlusion. CELIAC TRUNK: No flow limiting stenosis, dissection, or aneurysm. SUPERIOR MESENTERIC ARTERY: No flow limiting stenosis, dissection, or aneurysm. RIGHT RENAL ARTERY: No flow limiting stenosis, dissection, or aneurysm. LEFT RENAL ARTERY: No flow limiting stenosis, dissection, or aneurysm. INFERIOR MESENTERIC ARTERY: No flow limiting stenosis, dissection, or aneurysm. AORTA: No flow limiting stenosis, dissection, or aneurysm. ILIAC ARTERIES: No flow limiting stenosis, dissection, or aneurysm. CHEST LUNGS: Central airways are clear. No suspicious pulmonary nodules. No evidence of pneumonia. Bilateral lower lobe scarring/atelectasis. PLEURA: No effusion. No pneumothorax. MEDIASTINUM/JEAN: No identified masses or abnormal nodes. HEART: Heart size is normal with no pericardial effusion. AXILLA: No adenopathy. CHEST WALL: No masses. No subcutaneous air. HARDWARE/LINES/TUBES: None. MUSCULOSKELETAL CHEST: No significant abnormality. ABDOMEN/PELVIS LIVER: Normal size. No identified cystic or solid masses. No cysts. GALLBLADDER: No stones identified. No wall thickening or inflammatory changes. BILE DUCTS: No intrahepatic or extrahepatic ductal dilatation. SPLEEN: Normal size. No focal lesions. PANCREAS: No identified cystic or solid masses. No significant calcifications. No adjacent inflammation or peripancreatic fluid collections. Pancreatic duct not dilated. ADRENALS: Normal. KIDNEYS/URINARY TRACT: No identified significant cystic or solid masses. No stones. No hydronephrosis or hydroureter. Symmetric enhancement. Urinary bladder is unremarkable. GI: The distal esophagus and stomach are unremarkable. No dilated bowel loops. No obvious wall thickening. Normal appendix. No significant diverticular disease. PERITONEUM: No ascites or free air. RETROPERITONEUM: No mass or adenopathy. REPRODUCTIVE: No significant abnormality. VASCULATURE ABDOMEN: No abdominal aortic aneurysm. No major occlusion or flow limiting stenosis. No arterial dissection. MUSCULOSKELETAL ABDOMEN PELVIS: No acute osseous findings. Anterior spinal fusion spanning L3-S1 with interbody cages. OTHER: No significant abnormality. IMPRESSION: No aortic dissection. No other acute findings of the chest, abdomen, or pelvis. THIS IS AN ELECTRONICALLY VERIFIED FINAL REPORT 02/08/2025 5:10 PM - Electronically signed by Darryl Flowers M.D. KR: KR Report ID: [id number] Reading Location: [id number] Procedure Note Darryl Flowers MD - 02/08/2025 EXAM DESCRIPTION: CTA CHEST ABDOMEN PELVIS REASON FOR STUDY: dissection of aorta reports dealing with int numbness from the waist down x approx 1 monthwith pain to bilateral feet and knees. Pt reports was seen in ED recently andwas told he had neuropathy and discharged with gabapentin. Pt endorsing painis worsening to bilateral feet and knees (L knee worse than R.) Woke upthis AM with swelling to bilateral feet with pain. TECHNIQUE: CTA scan of the chest, abdomen, and pelvis performed withoutand with intravenous and without oral contrast using helical scanningtechnique with dynamic intravenous contrast injection. Precontrast images of thechest were acquired. Arterial phase images of the chest, abdomen, and pelvis aswell as portal venous phase images of the abdomen were also acquired.Reconstructed coronal and sagittal MPR images reviewed. All images stored on PACS. 3DMIP images rendered on scanning unit and reviewed at time of interpretation. Automated exposure control was used as a dose optimization technique forthis examination. CONTRAST TYPE/DOSE: 100mL of IOVERSOL 350 MG IODINE/ML INTRAVENOUS SYRINGE injected via intravenous COMPARISON: CT abdomen and pelvis 01/30/2025 FINDINGS: VASCULATURE No thoracic aortic dissection, aneurysm, intramural hematoma, or evidenceof penetrating atherosclerotic ulcer. No identified central pulmonaryembolus. No large vessel occlusion. CELIAC TRUNK: No flow limiting stenosis, dissection, or aneurysm. SUPERIOR MESENTERIC ARTERY: No flow limiting stenosis, dissection, or aneurysm. RIGHT RENAL ARTERY: No flow limiting stenosis, dissection, or aneurysm. LEFT RENAL ARTERY: No flow limiting stenosis, dissection, or aneurysm. INFERIOR MESENTERIC ARTERY: No flow limiting stenosis, dissection, or aneurysm. AORTA: No flow limiting stenosis, dissection, or aneurysm. ILIAC ARTERIES: No flow limiting stenosis, dissection, or aneurysm. CHEST LUNGS: Central airways are clear. No suspicious pulmonary nodules. No evidence of pneumonia. Bilateral lower lobe scarring/atelectasis. PLEURA: No effusion. No pneumothorax. MEDIASTINUM/JEAN: No identified masses or abnormal nodes. HEART: Heart size is normal with no pericardial effusion. AXILLA: No adenopathy. CHEST WALL: No masses. No subcutaneous air. HARDWARE/LINES/TUBES: None. MUSCULOSKELETAL CHEST: No significant abnormality. ABDOMEN/PELVIS LIVER: Normal size. No identified cystic or solid masses. No cysts. GALLBLADDER: No stones identified. No wall thickening or inflammatory changes. BILE DUCTS: No intrahepatic or extrahepatic ductal dilatation. SPLEEN: Normal size. No focal lesions. PANCREAS: No identified cystic or solid masses. No significant calcifications. No adjacent inflammation or peripancreatic fluidcollections. Pancreatic duct not dilated. ADRENALS: Normal. KIDNEYS/URINARY TRACT: No identified significant cystic or solid masses.No stones. No hydronephrosis or hydroureter. Symmetric enhancement.Urinary bladder is unremarkable. GI: The distal esophagus and stomach are unremarkable. No dilated bowel loops. No obvious wall thickening. Normal appendix. No significant diverticular disease. PERITONEUM: No ascites or free air. RETROPERITONEUM: No mass or adenopathy. REPRODUCTIVE: No significant abnormality. VASCULATURE ABDOMEN: No abdominal aortic aneurysm. No major occlusion orflow limiting stenosis. No arterial dissection. MUSCULOSKELETAL ABDOMEN PELVIS: No acute osseous findings. Anteriorspinal fusion spanning L3-S1 with interbody cages. OTHER: No significant abnormality. IMPRESSION: No aortic dissection. No other acute findings of the chest, abdomen, or pelvis. THIS IS AN ELECTRONICALLY VERIFIED FINAL REPORT 02/08/2025 5:10 PM - Electronically signed by Darryl Flowers M.D. KR: MCKENZIE Report ID: [id number] Reading Location: [place] [address] Darryl Ron DO IMG CT PROCEDURES Final Res ult * eGFR (02/08/2025 10:42 AM CDT) eGFR >90 >=60 mL/min/1. 73 m2 Comment: Interpretive Data Reference Interval Normal >/= 90 mL/min/1.73m2 Mildly decreased* 60 - 89 mL/min/1.73m2 Mildly to moderately decreased 45 - 59 mL/min/1.73m2 Moderately to severely decreased 30 - 44 mL/min/1.73m2 Severely decreased 15 - 29 mL/min/1.73m2 Kidney Failure < 15 mL/min/1.73m2 *Relative to young adult level Estimated glomerular filtration rate is determined by the 2020 CKD-EPI equation recommended by the National Kidney Foundation (A Unifying Approach to GFR Estimation: Recommendations of the NKF-ASK Task Force on Reassessing the Inclusion of Race in Diagnosing Kidney Disease, JASN 2020). The CKD-EPI equation should not be used for patients with unstable renal function and has not been validated in children and those over 70. Current interpretive data was last reviewed 2021. Testing performed by: [address] [address] Blood 02/08/2025 10:4 2 AM CDT 02/08/2025 10:55 AM CDT us Meghana AZEVEDO LAB BLOOD ORDERABLES Final Resul t [facility] [address] [facility] Department [place] [address] * Differential, auto (02/08/2025 10:42 AM CDT) Neutrophil abs 3.53 1.50 - 6.50 K/cumm Comment:Testing performed by : [address] [address] Imm gran abs 0.03 0.00 - 0.10 K/cumm [facility] Comment:Testing performed by : [address] [address] Lymphocyte abs 1.99 0.80 - 3.30 K/cumm [facility] Comment:Testing performed by : [address] [address] Monocyte abs 0.38 0.20 - 0.80 K/cumm [facility] Comment:Testing performed by : [address] [address] Eosinophil abs 0.08 0.00 - 0.50 K/cumm [facility] Comment:Testing performed by : [address] [address] Basophil abs 0.08 0.00 - 0.10 K/cumm [facility] Comment:Testing performed by : [address] [address] Neutrophil pct 58.0 % [facility] Comment: Interpretive Data Percent cell count reference ranges are not reported, since discordance with absolute values may lead to misinterpretation of CBC data. Current Interpretive Data was last revised on 2018. Testing performed by: [address] [address] Imm gran pct 0.5 % [facility] Comment: Interpretive Data Percent cell count reference ranges are not reported, since discordance with absolute values may lead to misinterpretation of CBC data. Current Interpretive Data was last revised on 2018. Testing performed by: [address] [address] Lymphocyte pct 32.7 % [facility] Comment: Interpretive Data Percent cell count reference ranges are not reported, since discordance with absolute values may lead to misinterpretation of CBC data. Current Interpretive Data was last revised on 2018. Testing performed by: [address] [address] Monocyte pct 6.2 % [facility] Comment: Interpretive Data Percent cell count reference ranges are not reported, since discordance with absolute values may lead to misinterpretation of CBC data. Current Interpretive Data was last revised on 2018. Testing performed by: [address] [address] Eosinophil pct 1.3 % [facility] Comment: Interpretive Data Percent cell count reference ranges are not reported, since discordance with absolute values may lead to misinterpretation of CBC data. Current Interpretive Data was last revised on 2018. Testing performed by: [address] [address] Basophil pct 1.3 % [facility] Comment: Interpretive Data Percent cell count reference ranges are not reported, since discordance with absolute values may lead to misinterpretation of CBC data. Current Interpretive Data was last revised on 2018. Testing performed by: [address] [address] Blood 02/08/2025 10:4 2 AM CDT 02/08/2025 10:55 AM CDT us Meghana AZEVEDO LAB BLOOD ORDERABLES Final Resul t [facility] [address] [facility] Department [place] [address] * (ABNORMAL) CBC with auto differential (02/08/2025 10:42 AM CDT) WBC 6.09 3.80 - 9.90 K/cumm Comment:Testing performed by : [address] [address] Hgb 14.6 13.0 - 17.5 g/dL [facility] Comment:Testing performed by : [address] [address] Hct 42.7 38.9 - 50.3 % [facility] Comment:Testing performed by : [address] [address] Plt 218 150 - 400 K/cumm [facility] Comment:Testing performed by : [address] [address] MPV 10.2 9.1 - 12.3 fL [facility] Comment:Testing performed by : [address] [address] RBC 4.35 4.30 - 5.80 M/cumm [facility] Comment:Testing performed by : [address] [address] MCV 98.2(H) 81.3 - 96.4 fL [facility] Comment:Testing performed by : [address] [address] MCH 33.6(H) 27.1 - 33.3 pg [facility] GONZALEZ Comment:Testing performed by : [address] [place]., [address] MCHC 34.2 32.3 - 35.7 g/dL CORNELIO GONZALEZ Comment:Testing performed by : [address] [address] RDW CV 13.5 11.1 - 14.9 % CORNELIO GONZALEZ Comment:Testing performed by : [address] [address] RDW SD 48.6(H) 35.7 - 48.1 fL CORNELIO GONZALEZ Comment:Testing performed by : [address] [address] NRBC abs 0.00 0.00 - 0.01 K/cumm CORNELIO GONZALEZ Comment:Testing performed by : [address] [address] Blood 02/08/2025 10:4 2 AM CDT 02/08/2025 10:55 AM CDT us Meghana AZEVEDO LAB BLOOD ORDERABLES Final Resul t CORNELIO [facility] Department of Laboratories [place], [place] [id number] * (ABNORMAL) Comprehensive metabolic panel (02/08/2025 10:42 AM CDT) Sodium 139 135 - 145 mmol/L Comment:Testing performed by : [address] [address] Potassium, pl 3.7 3.3 - 4.9 mmol/L CORNELIO GONZALEZ Comment:Testing performed by : [address] [address] Chloride 95(L) 97 - 110 mmol/L CORNELIO GONZALEZ Comment:Testing performed by : [address] [address] CO2 30 22 - 32 mmol/L CORNELIO GONZALEZ Comment:Testing performed by : [address] [address] Anion gap 14 2 - 15 mmol/L CORNELIO GONZALEZ Comment:Testing performed by : [address] [address] BUN 8 6 - 25 mg/dL [facility] Comment:Testing performed by : [address] [address] Creatinine 0.80 0.80 - 1.30 mg/dL CORNELIO Comment:Testing performed by : [address] [address] Glucose 104 70 - 199 mg/dL [facility] Comment: Interpretive Data Fasting glucose >/= 126 mg/dl is diagnostic for diabetes. Fasting is defined as no caloric intake for at least 8 hours. Fasting glucose between 100 mg/dl to 125 mg/dl is diagnostic of prediabetes. In a patient with classic symptoms of hyperglycemia or hyperglycemic crisis, a random glucose >/= 200 mg/dl is diagnostic for diabetes. In the absence of unequivocal hyperglycemia, results should be confirmed by repeat testing. The classification and Diagnosis of Diabetes Diabetes Care 2021; 46: S19-S40. Current interpretive data was last revised 2022. Testing performed by: [address] [address] Calcium 9.8 8.5 - 10.3 mg/dL [facility] Comment:Testing performed by : [address] [address] Bilirubin, total 0.5 0.1 - 1.2 mg/dL [facility] Comment:Testing performed by : [address] [address] Protein, pl 7.4 6.5 - 8.5 g/dL [facility] Comment:Testing performed by : [address] [address] Albumin 4.1 3.5 - 5.0 g/dL [facility] Comment:Testing performed by : [address] [address] Alk phos 157(H) 40 - 130 Units/L [facility] Comment:Testing performed by : [address] [address] ALT 65(H) 7 - 55 Units/L [facility] Comment:Testing performed by : [address] [address] AST 120(H) 10 - 50 Units/L CORNELIO GONZALEZ Comment:Testing performed by : [facility], [address] [place] [address], [place]., [address] Blood 02/08/2025 10:4 2 AM CDT 02/08/2025 10:55 AM CDT us Meghana AZEVEDO LAB BLOOD ORDERABLES Final Resul t CORNELIO GONZALEZ [address] [facility] Department [place] [address] * CT Abdomen Pelvis W Contrast (01/30/2025 1:23 AM CDT) Anatomical Region Laterality Modality Body N/A Computed Tomogra phy 01/30/2025 12:5 1 PM CDT Impressions 01/30/2025 12:[address]T [address] acute CT findings. Hepatic steatosis. Preliminary interpretation was provided overnight by the tele-radiologist on-call. Electronically signed by: Bulmaro Marquis M.D. Narrative 01/30/2025 12:51 PM CDT EXAMINATION: CT ABDOMEN PELVIS W CONTRAST HISTORY: LLQ abdominal pain FINDINGS: Lung bases are unremarkable. No pleural effusion. Imaged base of heart is unremarkable. Esophagus and stomach are nondistended. Spleen and liver are without acute abnormality. Hepatic steatosis. Gallbladder is nondistended. Pancreas is normal. Adrenal glands are normal. Kidneys enhance symmetrically. No hydronephrosis. Urinary bladder is normal. No bowel obstruction. No lymphadenopathy. Atherosclerosis of the thoracoabdominal aorta and its branches. No acute or suspicious osseous abnormality. Procedure Note Bulmaro Marquis MD - 01/30/2025 EXAMINATION: CT ABDOMEN PELVIS W CONTRAST HISTORY: LLQ abdominal pain FINDINGS: Lung bases are unremarkable. No pleural effusion. Imaged base of heart is unremarkable. Esophagus and stomach are nondistended. Spleen and liver are without acute abnormality. Hepatic steatosis. Gallbladder is nondistended. Pancreas is normal. Adrenal glands are normal. Kidneys enhance symmetrically. No hydronephrosis. Urinary bladder is normal. No bowel obstruction. No lymphadenopathy. Atherosclerosis of the thoracoabdominal aorta and its branches. No acute or suspicious osseous abnormality. IMPRESSION: No acute CT findings. Hepatic steatosis. Preliminary interpretation was provided overnight by the tele-radiologist on-call. Electronically signed by: Bulmaro Marquis M.D. Darron Noel MD IMG CT PROCEDURES Final Re sult * (ABNORMAL) Urinalysis reflex to microscopic and culture Urine (01/29/2025 7:06 PM CDT) Color, ur Yellow Yellow Clarity, ur Turbid(A) Clear [facility] Specific gravity, ur 1.011 1.003 - 1.030 [facility] pH, urine 8.0 [facility] Comment: Interpretive Data U rine pH is affected by diet, medications, systemic acid-base disturbances, and renal tubular function. pH may affect urinary stone formation. For example, urine pH below 6.0 may help reduce the tendency for calcium phosphate stones and pH greater than 6.0 may reduce the tendency for uric acid stone formation. Source: [facility] Current Interpretive Data was last revised on 2017 Protein, ur ql Negative Negative [facility] Glucose, ur ql Negative Negative [facility] Ketones, ur Negative Negative [facility] Bilirubin, ur Negative Negative [facility] Blood, ur Negative Negative [facility] Urobilinogen, ur 4.0(A) <2.0 mg/dL [facility] Nitrite, ur Negative Negative [facility] Leukocyte esterase, ur Negative Negative [facility] UA reflex comment Reflex conditions for microscopic UA and culture not met. [facility] Urine 01/29/2025 7:06 PM CDT 01/29/2025 7:10 PM CDT Sylvie Mcnair MD LAB MICROBIOLOGY - GENERA L ORDERABLES Final Result [facility] [address] [facility] Department [place] [address] * eGFR (01/29/2025 4:49 PM CDT) [facility] eGFR >90 >=60 mL/min/1. 73 m2 Comment: Interpretive Data Reference Interval Normal >/= 90 mL/min/1.73m2 Mildly decreased* 60 - 89 mL/min/1.73m2 Mildly to moderately decreased 45 - 59 mL/min/1.73m2 Moderately to severely decreased 30 - 44 mL/min/1.73m2 Severely decreased 15 - 29 mL/min/1.73m2 Kidney Failure < 15 mL/min/1.73m2 *Relative to young adult level Estimated glomerular filtration rate is determined by the 2020 CKD-EPI equation recommended by the National Kidney Foundation (A Unifying Approach to GFR Estimation: Recommendations of the NKF-ASK Task Force on Reassessing the Inclusion of Race in Diagnosing Kidney Disease, JASN 2020). The CKD-EPI equation should not be used for patients with unstable renal function and has not been validated in children and those over 70. Current interpretive data was last reviewed 2021. Blood 01/29/2025 4:49 PM CDT 01/29/2025 4:52 PM CDT us Sylvie Mcnair MD LAB BLOOD ORDERABLES Aishwarya martins Result [facility] [address] [facility] Department [place] [address] * Differential, auto (01/29/2025 4:49 PM CDT) [facility] Neutrophil abs 4.4 1.5 - 6.5 K/cumm Imm gran abs 0.0 0.0 - 0.1 K/cumm [facility] Lymphocyte abs 1.4 0.8 - 3.3 K/cumm [facility] Monocyte abs 0.4 0.2 - 0.8 K/cumm [facility] Eosinophil abs 0.0 0.0 - 0.5 K/cumm [facility] Basophil abs 0.1 0.0 - 0.1 K/cumm [facility] Neutrophil pct 69.4 % [facility] Comment: Interpretive Data Percent cell count reference ranges are not reported, since discordance with absolute values may lead to misinterpretation of CBC data. Current Interpretive Data was last revised on 2018. Imm gran pct 0.3 % [facility] Comment: Interpretive Data Percent cell count reference ranges are not reported, since discordance with absolute values may lead to misinterpretation of CBC data. Current Interpretive Data was last revised on 2018. Lymphocyte pct 22.1 % [facility] Comment: Interpretive Data Percent cell count reference ranges are not reported, since discordance with absolute values may lead to misinterpretation of CBC data. Current Interpretive Data was last revised on 2018. Monocyte pct 6.9 % [facility] Comment: Interpretive Data Percent cell count reference ranges are not reported, since discordance with absolute values may lead to misinterpretation of CBC data. Current Interpretive Data was last revised on 2018. Eosinophil pct 0.5 % [facility] Comment: Interpretive Data Percent cell count reference ranges are not reported, since discordance with absolute values may lead to misinterpretation of CBC data. Current Interpretive Data was last revised on 2018. Basophil pct 0.8 % [facility] Comment: Interpretive Data Percent cell count reference ranges are not reported, since discordance with absolute values may lead to misinterpretation of CBC data. Current Interpretive Data was last revised on 2018. Blood 01/29/2025 4:49 PM CDT 01/29/2025 4:52 PM CDT Sylvie Mcnair MD LAB BLOOD ORDERABLES Aishwarya martins Result [facility] Department [place] [address] * (ABNORMAL) CBC with auto differential (01/29/2025 4:49 PM CDT) WBC 6.4 3.8 - 9.9 K/cumm Hgb 15.2 13.0 - 17.5 g/dL [facility] Hct 44.4 38.9 - 50.3 % [facility] Plt 169 150 - 400 K/cumm [facility] MPV 10.0 9.1 - 12.3 fL [facility] RBC 4.47 4.30 - 5.80 M/cumm [facility] MCV 99.3(H) 81.3 - 96.4 fL [facility] MCH 34.0(H) 27.1 - 33.3 pg [facility] MCHC 34.2 32.3 - 35.7 g/dL [facility] RDW CV 13.4 11.1 - 14.9 % [facility] RDW SD 49.0(H) 35.7 - 48.1 fL [facility] NRBC abs 0.00 0.00 - 0.01 K/cumm [facility] Blood Venous blood specimen / Unknown 01/29/2025 4:49 PM CDT 01/29/2025 4:52 PM CDT Sylvie Mcnair MD LAB BLOOD ORDERABLES Aishwarya l Result Performing Organization Address City/[facility]/ZIP Co de Phone Number [address] [place] [address] * Lipase (01/29/2025 4:49 PM CDT) [facility] Lipase 37 10 - 99 Units/L Blood Venous blood specimen / Unknown 01/29/2025 4:49 PM CDT 01/29/2025 4:52 PM CDT Sylvie Mcnair MD LAB BLOOD ORDERABLES Aishwarya l Result Performing Organization Address City/[facility]/ZIP Co de Phone Number [address] [place] [address] * (ABNORMAL) Comprehensive metabolic panel (01/29/2025 4:49 PM CDT) [facility] Sodium 137 135 - 145 mmol/L Potassium, pl 4.0 3.3 - 4.9 mmol/L [facility] Chloride 92(L) 97 - 110 mmol/L [facility] CO2 28 22 - 32 mmol/L [facility] Anion gap 17(H) 2 - 15 mmol/L [facility] BUN 8 6 - 25 mg/dL [facility] Creatinine 0.87 0.80 - 1.30 mg/dL [facility] Glucose 109 70 - 199 mg/dL [facility] Comment: Interpretive Data Fasting glucose >/= 126 mg/dl is diagnostic for diabetes. Fasting is defined as no caloric intake for at least 8 hours. Fasting glucose between 100 mg/dl to 125 mg/dl is diagnostic of prediabetes. In a patient with classic symptoms of hyperglycemia or hyperglycemic crisis, a random glucose >/= 200 mg/dl is diagnostic for diabetes. In the absence of unequivocal hyperglycemia, results should be confirmed by repeat testing. The classification and Diagnosis of Diabetes Diabetes Care 2021; 46: S19-S40. Current interpretive data was last revised 2022. Calcium 10.4(H) 8.5 - 10.3 mg/dL [facility] Bilirubin, total 0.9 0.1 - 1.2 mg/dL [facility] Protein, pl 7.8 6.5 - 8.5 g/dL [facility] Albumin 4.4 3.5 - 5.0 g/dL [facility] Alk phos 185(H) 40 - 130 Units/L [facility] ALT 91(H) 7 - 55 Units/L [facility] AST 198(H) 10 - 50 Units/L [facility] Blood 01/29/2025 4:49 PM CDT 01/29/2025 4:52 PM CDT us Sylvie Mcnair MD LAB BLOOD ORDERABLES Aishwarya l Result [facility] Department [place] [address] * POCT glucose (01/29/2025 4:47 PM CDT) [facility] Signature Glucose, POC 110 70 - 199 mg/dL POC Performer [phone] [facility] Blood 01/29/2025 4:47 PM CDT 01/29/2025 4:47 PM CDT us Notinfile Unknown LAB POCT ORDERABLES - DEVICE F inal Result [facility] Department of Laboratories [place] [id number] from Last 3 Months Insurance [employer] Advance Directives For more information, please contact: [phone] * Full Code (Latest Code Status on File) Date Activated Date Inactivated Comments 03/04/2023 12:03 AM 03/07/2023 6:49 PM Care Teams Cottage 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
--- OUTSIDE RECORDS SUMMARY | 2025-03-30 11:42 | XMS_ITS | Encounter Summary ---
Author Organization [facility] Address [facility] [facility] [place] [address] Care Team Providers Care Ear Specialist Name Role Phone Darryl Hanson MD Primary Care Provider Diogenes Stuart MD Unavailable Fabienne Miller MD Primary Care Provider [phone] Pravin Crowe DO Unavailable [phone] Thong Demarco MD Unavailable [phone] Fareed Nuñez MD Primary Care Provider [phone] Fareed Nuñez MD Unavailable Fareed Nuñez MD Unavailable Fareed Nuñez MD Unavailable [phone] Zafar Washington MD Unavailable [phone] Fabienne Mliler MD Unavailable Encounter Details Date Type Department Care Team (Late st Contact Info) Description 05/25/2013 Therapy Visit EXTERNAL NON-[facility] DEPT Unknown, Provider Social History Tobacco Use Types Packs/Day Years Used Date Smoking Tobacco: Former Cigarettes 0.3 15 0 02/02/1998 - 02/02/2013 Alcohol Use Standard Drinks/Week Comments Yes 0 (1 standard drink = 0.6 oz pur e alcohol) 12 Beers per week for 13 years Sex and Gender Information Value Date Recorded Sex Assigned at Male 08/30/2021 12:31 PM CDT 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 Gender Identity Male 05/22/2018 10:53 AM CDT Sexual Orientation Straight 08/30/2021 12 :31 PM CDT 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 [address] PCP - General 11/21/10 04/10/15 [place] [address] [place] [address] [address] [place] [address] PCP - General Family Medicine 05/10/15 12/18/16 Fareed Nuñez MD [address] [place] [address] PCP - General Family Medicine 07/22/19 Fareed Nuñez [place] [address] [place] [address] [address] [place] [address] PCP - Attributed-[employer] 02/03/20 1 Fareed Nuñez [place] [address] [place] [address] [address] [place] [address] PCP - Attributed-[place] [employer] 03/04/21 10/19/21 Fareed Nuñez [place] [address] [place] [address] [address] [place] [address] PCP - Attributed-[place] [employer] 05/04/22 05/21/23 Fabienne Miller MD [address] [facility] [address] [place] [address] PCP - Attributed-[employer] Commercial 03/21/19 03/21/19 Diogenes Stuart MD [address] [place] [address] Neurological Surgery 03/10/13 07/30/22 Pravin Crowe DO [address] [place] [address] Orthopedic Surgery 05/10/15 07/30/22 Thong Demarco MD [address] [place] [address] Otolaryngology 05/10/15 07/30/22 [place] [address] [place] [id number] [place] Blindstitch/Oncologis t Hematology and Oncology 07/31/23 documented as of this encounter
--- OUTSIDE RECORDS SUMMARY | 2025-03-30 11:42 | XMS_ITS | Encounter Summary ---
Author Organization [facility] Health Address [facility] [address] Care Team Providers Care Health Practice Manager Name Role Phone Darryl Hanson MD Primary Care Provider Diogenes Stuart MD Unavailable [phone] Fabienne Miller MD Primary Care Provider [phone] Pravin Crowe DO Unavailable [phone] Thong Demarco MD Unavailable Fareed Nuñez MD Primary Care Provider Fareed Nuñez MD Unavailable Fareed Nuñez MD Unavailable [phone] Fareed Nuñez MD Unavailable [phone] Zafar Washington MD Unavailable [phone] Fabienne Milelr MD Unavailable Encounter Details Date Type Department Care Team (Late st Contact Info) Description 12/19/2012 [facility] Outpatient Visit EXTERNAL NON-[place] [address] [facility] [address] [place] [address] Social History Tobacco Use Types Packs/Day Years Used Date Smoking Tobacco: Every Day Cigarettes 1 15 Alcohol Use Standard Drinks/Week Comments Yes 0 (1 standard drink = 0.6 oz pur e alcohol) 12 Beers per week for 13 years Sex and Gender Information Value Date Recorded Sex Assigned at Male 08/30/2021 12:31 PM CDT 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 Gender Identity Male 05/22/2018 10:53 AM CDT Sexual Orientation Straight 08/30/2021 12 :31 PM CDT 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 [address] PCP - General 11/21/10 04/10/15 [place] [address] [place] [address] [address] [place] [address] PCP - General Family Medicine 05/10/15 12/18/16 Fareed Nuñez [place] [address] [place] [address] [address] [place] [address] PCP - General Family Medicine 07/22/19 Fareed Nuñez [place] [address] [place] [address] [address] [place] [address] PCP - Attributed-[employer] 02/03/20 1 Fareed Nuñez [place] [address] [place] [address] [address] [place] [address] PCP - Attributed-[place] [employer] 03/04/21 10/19/21 Fareed Nuñez MD [address] [facility] [address] [place] [address] PCP - Attributed-[place] [employer] 05/04/22 05/21/23 Fabienne Miller MD [address] [facility] [address] [place] [address] PCP - Attributed-[employer] Commercial 03/21/19 03/21/19 Diogenes Stuart MD [address] [facility] 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
--- OUTSIDE RECORDS SUMMARY | 2025-03-30 11:42 | XMS_ITS | Encounter Summary ---
Author Organization [facility] Address [address] [place] [address] Care Team Providers Care Export Freight Manager Name Role Phone Unavailable Primary Care Provider Unavailabl e Prior Encounters Date Type Department Care Team Description 11/23/2019 Converted 13x Documents [facility] [address] [place] [address] <No scans attached> Plan of Treatment Not on file Visit Diagnoses Not on file
--- OUTSIDE RECORDS SUMMARY | 2025-03-30 11:42 | XMS_ITS | Clinical Summary ---
Author Organization [facility] Address [address] [place] [address] Care Team Providers Care Law Secretary Name Role Phone Unavailable Primary Care Provider Unavailabl e Social History Tobacco Use Types Packs/Day Years Used Date Smoking Tobacco: Never Assessed Sex and Gender Information Value Date Recorded Sex Assigned at Not on file Legal Sex Male 12:41 AM PST Gender Identity Not on file Sexual Orientation Not on file Plan of Treatment Not on file
--- OUTSIDE RECORDS SUMMARY | 2025-03-30 11:42 | XMS_ITS | Referral Summary ---
Author Organization [facility] Address [address] [place] [address] Care Team Providers Care Assistant Golf Course Superintendent Name Role Phone Fareed Nuñez MD Primary Care Provider + Encounters Date Type Department Care Team Description 02/08/2025 2:58 PM CDT - 02/08/2025 7:13 PM CDT Emergency [facility] [place] Emergency Department [facility] [place] [address] Darryl Ron, Leg swelling (Primary Dx); Neuropathy Discharge Disposition: Discharge to home or self care 01/29/2025 8:26 PM CDT - 01/30/2025 4:17 AM CDT Emergency [facility] Emergency Department [address] [place] [address] Darron Noel MD Other polyneuropathy (Primary Dx) Discharge Disposition: Discharge to home or self care from Last 3 Months Allergies Active Allergy Reactions Criticality Noted Date [...] dependence Low back pain 02/01/2010 Overview (01/15/2023): Immunizations Immunization Administration Dates Next Due Influenza, Quadrivalent, Spl it, Preservative Free, Intramuscular 10/31/2020,07/25/2018,07/30/2017,10/18 Pfizer SARS-CoV-2 Monovalent Vaccination (12+ Yrs) PURPLE 03/01/2021,02/08/2021 Tdap 06/04/2017 Social History Tobacco Use Types Packs/Day Years [...] often do you attend chur ch or worship services? Never 03/05/2023 Do you belong to any clubs o r organizations such as baptist groups, unions, fraternal or athletic groups, or [...] place to sleep or slept in a jail (including now)? No 03/05/2023 Personal Safety Answer Date Recorded Have you ever been in or are you currently in a harmful physical or emotional relationship or is someone making you feel afraid or unsafe? 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 Gender Identity Male 02/01/2021 8:24 AM CDT Sexual Orientation Straight 02/01/2021 8: 24 AM CDT Last Filed Vital Signs Vital Sign Reading [...] 01/29/2025 4:47 PM CDT Plan of Treatment Not on file Procedures Procedure Name Priority Date/Time Associated Diagnosis [...] ECG 12 lead (02/08/2025 5:21 PM CDT) Pathologist [facility] Ventricular Rate EKG/Min 70 BPM [facility] Atrial Rate 70 BPM [facility] CO-Interval (MSEC) 174 ms [facility] QRS-Interval (MSEC) 96 ms [facility] QT-Interval (MSEC) 442 ms [facility] QTc 477 ms [facility] P [place] 41 degrees [facility] R [place] -19 degrees [facility] T [place] 20 degrees [facility] Diagnosis Normal sinus rhythm T-wave changes Abnormal ECG No previous ECGs available Confirmed by SULTAN ÁLVAREZ M.D. ([id number]) on 02/08/2025 11:43:05 PM [facility] 02/08/2025 5:21 PM CDT 02/08/2025 11:43 PM CDT Darryl Ron DO ECG ORDERABLES Final Resul t [facility] * Troponin T high-sensitivity series (baseline, 2hr, 4hr, 6hr) (02/08/2025 5:20 PM CDT) Pathologist [facility] [place] Trop T hs <6 <=22 ng/L Comment: Interpretive Data For further hscTnT resources including the diagnostic algorithm and an aid in interpretation, copy and paste this link: https://nrl.testcatalog.org/show/hsTrop Current Interpretive Data last revised 2020. Testing performed by: [facility], [address] [place] [address]., [id number] Blood 02/08/2025 5:20 PM CDT 02/08/2025 5:22 PM CDT Darryl Ron DO LAB BLOOD ORDERABLES Final Result COR[place]ELIO [place] [address] [facility] Department [place] [address] * Pro B-type natriuretic peptide [...] et.al. Eur Heart J. 2006:27:330-337. 2. Sangita RW, Willie WELCH. J. AM Indy Cardiol: Cardiovasc Imag. 2009;2: 216- 225. Interpretive Data Last Revised Date: 2018. Testing performed by: [facility], [address] [place] [address]., [id number] Blood 02/08/2025 5:20 PM CDT 02/08/2025 5:22 PM CDT Darryl Ron LAB BLOOD ORDERABLES Final Result [place]ELIO [place] [address] [facility] [place] [address] * CTA Chest Abdomen Pelvis (02/08/2025 4:33 [...] Darryl Flowers M.D. KR: KR Report ID: [id number] Reading Location: [id number] Procedure Note Darryl Flowers MD - 02/08/2025 [...] 5:10 PM - Electronically signed by Darryl Floewrs M.D. KR: MCKENZIE Report ID: [id number] Reading Location: [place] [address] Darryl Ron DO IMG CT PROCEDURES Final [...] of Race in Diagnosing Kidney Disease, JASN 202). The CKD-EPI equation should not be used for patients with unstable renal function and has not been validated in children and those over 70. Current interpretive data was last reviewed 2021. Testing performed by: [facility], [address] [place] [address]., [id number] Blood 02/08/2025 10:4 2 AM CDT 02/08/2025 10:55 AM CDT us Meghana AZEVEDO LAB BLOOD ORDERABLES Final Resul t [facility] [address] [facility] [place] [address] * Differential, auto (02/08/2025 10:42 AM CDT) Neutrophil abs 3.53 1.50 - 6.50 K/cumm Comment:Testing performed by : [address] [address] Imm gran abs 0.03 0.00 - 0.10 K/cumm CORNELIO Comment:Testing performed by : [address] [address] Lymphocyte abs 1.99 0.80 - 3.30 K/cumm CORNELIO Comment:Testing performed by : [address] [address] Monocyte abs 0.38 0.20 - 0.80 K/cumm CORNELIO Comment:Testing performed by : [address] [address] Eosinophil abs 0.08 0.00 - 0.50 K/cumm CORNELIO Comment:Testing performed by : [address] [address] Basophil abs 0.08 0.00 - 0.10 K/cumm CORNELIO Comment:Testing performed by : [address] [address] Neutrophil pct 58.0 % CORNELIO Comment: Interpretive Data Percent cell count reference ranges are not reported, since discordance with absolute values may lead to misinterpretation of CBC data. Current Interpretive Data was last revised on 2018. Testing performed by: [address] [address] Imm gran pct 0.5 % CORNELIO Comment: Interpretive Data Percent cell count reference ranges are not reported, since discordance with absolute values may lead to misinterpretation of CBC data. Current Interpretive Data was last revised on 2018. Testing performed by: [address] [address] Lymphocyte pct 32.7 % [facility] Comment: Interpretive Data Percent cell count reference ranges are not reported, since discordance with absolute values may lead to misinterpretation of CBC data. Current Interpretive Data was last revised on 2018. Testing performed by: [address] [address] Monocyte pct 6.2 % [facility] Comment: Interpretive Data Percent cell count reference ranges are not reported, since discordance with absolute values may lead to misinterpretation of CBC data. Current Interpretive Data was last revised on 2018. Testing performed by: [address] [address] Eosinophil pct 1.3 % [facility] Comment: Interpretive Data Percent cell count reference ranges are not reported, since discordance with absolute values may lead to misinterpretation of CBC data. Current Interpretive Data was last revised on 2018. Testing performed by: [address] [address] Basophil pct 1.3 % [facility] Comment: Interpretive Data Percent cell count reference ranges are not reported, since discordance with absolute values may lead to misinterpretation of CBC data. Current Interpretive Data was last revised on 2018. Testing performed by: [address] [address] Blood 02/08/2025 10:4 2 AM CDT 02/08/2025 10:55 AM CDT us Meghana AZEVEDO LAB BLOOD ORDERABLES Final Resul t [place]IO [address] [facility] Department [place] [address] * (ABNORMAL) CBC with auto differential (02/08/2025 10:42 AM CDT) WBC 6.09 3.80 - 9.90 K/cumm Comment:Testing performed by : [address] [address] Hgb 14.6 13.0 - 17.5 g/dL CORNELIO Comment:Testing performed by : [address], [address] Hct 42.7 38.9 - 50.3 % CORNELIO Comment:Testing performed by : [address] [address] Plt 218 150 - 400 K/cumm CORNELIO Comment:Testing performed by : [address] [address] MPV 10.2 9.1 - 12.3 fL CORNELIO Comment:Testing performed by : [address], [address] RBC 4.35 4.30 - 5.80 M/cumm CORNELIO Comment:Testing performed by : [address] [address] MCV 98.2(H) 81.3 - 96.4 fL CORNELIO Comment:Testing performed by : [address] [address] MCH 33.6(H) 27.1 - 33.3 pg CORNELIO Comment:Testing performed by : [address], [address] MCHC 34.2 32.3 - 35.7 g/dL CORNELIO Comment:Testing performed by : [address] [address] RDW CV 13.5 11.1 - 14.9 % CORNELIO Comment:Testing performed by : [address], [address] RDW SD 48.6(H) 35.7 - 48.1 fL CORNELIO Comment:Testing performed by : [address] [address] NRBC abs 0.00 0.00 - 0.01 K/cumm CORNELIO Comment:Testing performed by : [address] [address] Blood 02/08/2025 10:4 2 AM CDT 02/08/2025 10:55 AM CDT us Meghana AZEVEDO LAB BLOOD ORDERABLES Final Resul t [place] [address] [facility] Department [place] [address] * (ABNORMAL) Comprehensive metabolic panel (02/08/2025 10:42 AM CDT) Sodium 139 135 - 145 mmol/L Comment:Testing performed by : [address] [address] Potassium, pl 3.7 3.3 - 4.9 mmol/L CORNELIO Comment:Testing performed by : [address] [address] Chloride 95(L) 97 - 110 mmol/L CORNELIO Comment:Testing performed by : [address] [address] CO2 30 22 - 32 mmol/L CORNELIO Comment:Testing performed by : [address] [address] Anion gap 14 2 - 15 mmol/L CORNELIO Comment:Testing performed by : [address] [address] BUN 8 6 - 25 mg/dL CORNELIO Comment:Testing performed by : [address] [address] Creatinine 0.80 0.80 - 1.30 mg/dL CORNELIO Comment:Testing performed by : [address] [address] Glucose 104 70 - 199 mg/dL CORNELIO Comment: Interpretive Data Fasting glucose >/= 126 [...] classification and Diagnosis of Diabetes Diabetes Care 202; 46: S19-S40. Current interpretive data was last revised 2022. Testing performed by: [address] [address] Calcium 9.8 8.5 - 10.3 mg/dL CORNELIO Comment:Testing performed by : [address] [address] Bilirubin, total 0.5 0.1 - 1.2 mg/dL CORNELIO Comment:Testing performed by : [address] [address] Protein, pl 7.4 6.5 - 8.5 g/dL CORNELIO Comment:Testing performed by : [address] [address] Albumin 4.1 3.5 - 5.0 g/dL CORNELIO Comment:Testing performed by : [address] [address] Alk phos 157(H) 40 - 130 Units/L CORN[facility]IO Comment:Testing performed by : [address] [address] ALT 65(H) 7 - 55 Units/L CORN[facility]IO Comment:Testing performed by : [address] [address] AST 120(H) 10 - 50 Units/L [facility]IO Comment:Testing performed by : [address] [address] Blood 02/08/2025 10:4 2 AM CDT 02/08/2025 10:55 AM CDT us Meghana AZEVEDO LAB BLOOD ORDERABLES Final Resul t [place] [address] [facility] Department [place] [address] * CT Abdomen Pelvis W Contrast (01/30/2025 [...] by: Bulmaro Marquis M.D. Darron Noel MD [facility] [place] [place] PROCEDURES Final Re sult * (ABNORMAL) Urinalysis reflex to microscopic and culture Urine (01/29/2025 7:06 PM CDT) Color, ur Yellow Yellow Clarity, ur Turbid(A) Clear [facility] Specific gravity, ur 1.011 1.003 - 1.030 [facility] pH, urine 8.0 [facility] Comment: Interpretive Data U rine pH is affected by diet, medications, systemic acid-base disturbances, and renal tubular function. pH may affect urinary stone formation. For example, urine pH below 6.0 may help reduce the tendency for calcium phosphate stones and pH greater than 6.0 may reduce the tendency for uric acid stone formation. Source: [facility] Current Interpretive Data was last revised on 2017 Protein, ur ql Negative Negative [facility] Glucose, ur ql Negative Negative [facility] Ketones, ur Negative Negative [facility] Bilirubin, ur Negative Negative [facility] Blood, ur Negative Negative [facility] Urobilinogen, ur 4.0(A) <2.0 mg/dL [facility] Nitrite, ur Negative Negative [facility] Leukocyte esterase, ur Negative Negative [facility] UA reflex comment Reflex conditions for microscopic UA and culture not met. [facility] Urine 01/29/2025 7:06 PM CDT 01/29/2025 7:10 PM CDT us Sylvie Mcnair MD LAB MICROBIOLOGY - GENERA L ORDERABLES Final Result [address] Department [place] [address] * eGFR (01/29/2025 4:49 PM CDT) eGFR >90 >=60 mL/min/1. 73 m2 [...] Sylvie Mcnair MD LAB BLOOD ORDERABLES Aishwarya eliezer Result [address] Department [place] [address] * Differential, auto (01/29/2025 4:49 PM CDT) Neutrophil abs 4.4 1.5 - 6.5 K/cumm Imm gran abs 0.0 0.0 - 0.1 K/cumm [facility] Lymphocyte abs 1.4 0.8 - 3.3 K/cumm [facility] Monocyte abs 0.4 0.2 - 0.8 K/cumm [facility] Eosinophil abs 0.0 0.0 - 0.5 K/cumm [facility] Basophil abs 0.1 0.0 - 0.1 K/cumm [facility] Neutrophil pct 69.4 % [facility] Comment: Interpretive Data Percent cell count reference ranges are not reported, since discordance with absolute values may lead to misinterpretation of CBC data. Current Interpretive Data was last revised on 2018. Imm gran pct 0.3 % [facility] Comment: Interpretive Data Percent cell count reference ranges are not reported, since discordance with absolute values may lead to misinterpretation of CBC data. Current Interpretive Data was last revised on 2018. Lymphocyte pct 22.1 % [facility] Comment: Interpretive Data Percent cell count reference ranges are not reported, since discordance with absolute values may lead to misinterpretation of CBC data. Current Interpretive Data was last revised on 2018. Monocyte pct 6.9 % [facility] Comment: Interpretive Data Percent cell count reference ranges are not reported, since discordance with absolute values may lead to misinterpretation of CBC data. Current Interpretive Data was last revised on 2018. Eosinophil pct 0.5 % [facility] Comment: Interpretive Data Percent cell count reference ranges are not reported, since discordance with absolute values may lead to misinterpretation of CBC data. Current Interpretive Data was last revised on 2018. Basophil pct 0.8 % [facility] Comment: Interpretive Data Percent cell count reference ranges are not reported, since discordance with absolute values may lead to misinterpretation of CBC data. Current Interpretive Data was last revised on 2018. Blood 01/29/2025 4:49 PM CDT 01/29/2025 4:52 PM CDT Sylvie Mcnair MD LAB BLOOD ORDERABLES Aishwarya l Result [facility] [address] [facility] Department [place] [address] * (ABNORMAL) CBC with auto differential (01/29/2025 4:49 PM CDT) WBC 6.4 3.8 - 9.9 K/cumm Hgb 15.2 13.0 - 17.5 g/dL [facility] Hct 44.4 38.9 - 50.3 % [facility] Plt 169 150 - 400 K/cumm [facility] MPV 10.0 9.1 - 12.3 fL [facility] RBC 4.47 4.30 - 5.80 M/cumm [facility] MCV 99.3(H) 81.3 - 96.4 fL [facility] MCH 34.0(H) 27.1 - 33.3 pg [facility] MCHC 34.2 32.3 - 35.7 g/dL [facility] RDW CV 13.4 11.1 - 14.9 % [facility] RDW SD 49.0(H) 35.7 - 48.1 fL [facility] NRBC abs 0.00 0.00 - 0.01 K/cumm [facility] Blood Venous blood specimen / Unknown 01/29/2025 4:49 PM CDT 01/29/2025 4:52 PM CDT Sylvie Mcnair MD LAB BLOOD ORDERABLES Aishwarya l Result [address] [place] [address] * Lipase (01/29/2025 4:49 PM CDT) Pathologist [facility] Lipase 37 10 - 99 Units/L Blood Venous blood specimen / Unknown 01/29/2025 4:49 PM CDT 01/29/2025 4:52 PM CDT Sylvie Mcnair MD LAB BLOOD ORDERABLES Aishwarya l Result Performing Organization Address [facility] Co de Phone Number [address] [place] [address] * (ABNORMAL) Comprehensive metabolic panel (01/29/2025 4:49 PM CDT) Pathologist [facility] Sodium 137 135 - 145 mmol/L Potassium, pl 4.0 3.3 - 4.9 mmol/L [facility] Chloride 92(L) 97 - 110 mmol/L [facility] CO2 28 22 - 32 mmol/L [facility] Anion gap 17(H) 2 - 15 mmol/L [facility] BUN 8 6 - 25 mg/dL [facility] Creatinine 0.87 0.80 - 1.30 mg/dL [facility] Glucose 109 70 - 199 mg/dL [facility] Comment: Interpretive Data Fasting glucose >/= 126 [...] 2022. Calcium 10.4(H) 8.5 - 10.3 mg/dL [facility] Bilirubin, total 0.9 0.1 - 1.2 mg/dL [facility] Protein, pl 7.8 6.5 - 8.5 g/dL [facility] Albumin 4.4 3.5 - 5.0 g/dL [facility] Alk phos 185(H) 40 - 130 Units/L [facility] ALT 91(H) 7 - 55 Units/L [facility] AST 198(H) 10 - 50 Units/L [facility] Blood 01/29/2025 4:49 PM CDT 01/29/2025 4:52 PM CDT us Sylvie Mcnair MD LAB BLOOD ORDERABLES Aishwarya l Result Performing Organization Address City/[facility]/ZIP Co de Phone Number [address] Department of Laboratories [place], [place] [address] * POCT glucose (01/29/2025 4:47 PM CDT) [facility] Glucose, POC 110 70 - 199 mg/dL POC Performer [id number] [facility] Blood 01/29/2025 4:47 PM CDT 01/29/2025 4:47 PM CDT us Notinfile Unknown LAB POCT ORDERABLES - DEVICE F inal Result Performing Organization Address [facility] Co de Phone Number [address] [place] [address] from Last 3 Months Insurance [employer] Advance Directives For more information, please contact: [phone] * Full Code (Latest Code Status on File) Date Activated Date Inactivated Comments 03/04/2023 12:03 AM 03/07/2023 6:49 PM Care Teams Assistant Golf Course Superintendent Relationship Specialty Start Date End Date Fareed Nuñez MD [address] [address] PCP - General Family Medicine 03/18/23
--- OUTSIDE RECORDS SUMMARY | 2025-03-30 11:42 | XMS_ITS | Encounter Summary ---
Author Organization [facility] Address [facility] [place] [address] Care Team Providers Care Supervisor Bindery Name Role Phone Fareed Nuñez MD Primary Care Provider [phone] Zafar [place] MD Unavailable [phone] Encounter Details Date Type Department Care Team (Late Contact Info) Description 02/18/2025 Results Follow-Up [facility] - Family Medicine [address] [place] [address] Fareed Nuñez MD [address] [place] [id number] Social History Tobacco Use Types Packs/Day Years Used Date Smoking Tobacco: Every Day Cigarettes 0.5 33.8 Started: 1991 Passive Smoke Exposure: Current Smokeless Tobacco: Never Alcohol Use Standard Drinks/Week Comments Yes 28 (1 standard drink = 0.6 oz pu re alcohol) beer or vodka PHQ-2 Answer Date Recorded Patient Health Questionnaire-2 Score 2 01/28/2025 Sex and Gender Information Value Date Recorded Sex Assigned at Male 08/30/2021 12:31 PM CDT 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 Gender Identity Male 05/22/2018 10:53 AM CDT Sexual Orientation Straight 08/30/2021 12 :31 PM CDT 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 Not on file Not on file documented as of this encounter Plan of Treatment Upcoming Encounters Date Type Department Care Team (Late st Contact Info) Description 03/31/2025 10:00 AM CDT Appointment [facility] [address] [facility] [address] [place] [address] Scheduled Orders Name Type Priority Associated Diagnoses Orde r Schedule FOLATE Lab Routine Folate deficiency Expected: 04/15/2025 (Approximate), Expires: 03/20/2026 TSH Lab Routine Acquired hypothyroidism Expected: 04/15/2025 (Approximate), Expires: 03/15/2026 documented as of this encounter Visit Diagnoses Diagnosis Acquired hypothyroidism- Primary Folate deficiency Other B-complex deficiencies documented in this encounter Care Teams Supervisor Bindery Relationship Specialty Start Date End Date Fareed Nuñez MD [address] [facility] [address] [place] [address] PCP - General Family Medicine 07/22/19 [place] [address] [address] [facility] [address] [place] [address] Trimmer And Reinforcer/Oncologist Hematology and Oncology 07/31/23 documented as of this encounter
--- NOTE | 2025-03-30 13:25 | ED.WEAKNESS ---
HPI - Weakness General Chief complaint: Weakness <KARLA Dominique Last Filed: 03/30/25 13:45> Stated complaint: Unable to walk-extreme weakness <KARLA Dominique Last Filed: 03/30/25 13:45> Time Seen by Provider: 03/30/25 13:25 <KARLA Dominique Last Filed: 03/30/25 13:45> Focused HPI: Patient is a 49 y/o male who presents to the ED with c/o progressively worsening pain/weakness in extremities. Patient reports he has been dealing with pain and weakness of his extremities since January. Started as pain/tingling/burning in his hands and feet. He has been evaluated at multiple different outside hospitals, diagnosed with peripheral neuropathy, started on gabapentin. Pain has since persisted. Went to another ER, given pain medication. Was seen at yet another ED and Rx'd levothyroxine 50mcg. He is unsure why. S.O. at bedside reports significant deterioration of patient within the past 1 week, significant worsening weakness to the point that patient cannot walk independently. Unable to use the bathroom on his own, cannot feed himself, cannot get out of bed. S.O. also reports decreased appetite, decreased PO intake, dizziness. Was scheduled to have nerve conduction testing tomorrow at [facility], but had difficulty caring for patient today. GENERAL: Appears older than stated age, and in mild acute distress. HEAD: Normocephalic, atraumatic. CHEST: Clear to auscultation. ?No respiratory distress. HEART: Regular rate and rhythm.? NEURO: ?Alert and oriented x3. Diffuse weakness of extremities, but seems symmetric. Spastic jerking uncoordinated movements of arms and legs. 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 Patient screened in triage and initial orders placed.? ?Additional care and disposition to be based upon?diagnostic testing and treatment. <KARLA Dominique Last Filed: 03/30/25 13:45> Source: patient and family <KARLA Dominique Last Filed: 03/30/25 13:45> Mode of arrival: ambulatory <KARLA Dominique Filed: 03/30/25 13:45> Limitations: no limitations <Radha Craig PA-C - Last Filed: 03/30/25 13:45> History of Present Illness HPI Narrative: Patient is a 49-year-old gentleman presents emergency department chief complaint of progressive weakness. Patient reports he has been seen and several emergency department diagnosed peripheral neuropathy started on levothyroxine and is scheduled for a nerve conduction study tomorrow patient states over the last week he has had difficulty walking without any form of assistance reports he cannot get out of bed and reports that he keeps getting progressively weaker. <Agustin Morneo MD - Last Filed: 03/30/25 17:31> Related Data Home medications: Home Medications ?Medication ?Instructions ?Recorded ?Confirmed ?Last Taken ?Type albuterol 90 mcg/actuation aerosol 90 mcg inhalation TID PRN 06/12/22 07/23/24 Unknown History inhaler Shortness Of Breath alprazolam 0.5 mg tablet 0.5 mg PO TID PRN Anxiety 06/12/22 07/23/24 Unknown History lisinopril 20 mg tablet 20 mg PO DAILY 07/23/24 07/23/24 Unknown History <Radha Craig PA-C - Last Filed: 03/30/25 13:45> Allergies/Adverse reactions: Allergies Allergy/AdvReac Type Severity Reaction Status Date / Time tramadol AdvReac Intermediate Agitated Verified 03/30/25 11:41 <Radha Craig PA-C - Last Filed: 03/30/25 13:45> Review of Systems Review of Systems: A 10 system review of systems was completed on the patient and is negative except for what is stated in the HPI. Nursing and ancillary documentation was reviewed. <Agustin Moreno MD - Last Filed: 03/30/25 17:31> [facility] Past Medical History Medical History: Medical History Hepatic steatosis Noted on CT scan 06/2022 Tobacco abuse Hypertension Asthma Anxiety <Radha Craig PA-C - Last Filed: 03/30/25 13:45> Surgical History Surgical History: Surgical History H/O knee surgery H/O spinal fusion <Radha Craig PA-C - Last Filed: 03/30/25 13:45> Family History Family History: Family History Unknown No problems noted. Other Unknown family medical history <Radha Craig PA-C - Last Filed: 03/30/25 13:45> Social History Social History: Social History Social History: The patient lives with his significant other. He has 4 children. 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 Code status full code Smoking packs per day: 1 Smoking cigarettes per day: 20.0 Years smoked: 30 Smoking pack-years: 30.00 Smoking status: Current every day smoker Tobacco type: cigarettes Alcohol intake: current Drinks per week: 20 Alcohol use details: social Substance use: current Substance use type: marijuana Lack of Transportation: No Lack of Food: Never True Current Housing: I Have Housing Concerned About Future Housing: No Difficulty Paying Gas/Electric Bills: No Difficulty Paying for Meds: No Currently Unemployed: No Education: Associate Degree Difficulty w/ Childcare or Family Care: No Living arrangements: with family Gender identity (if verbalized by the patient): Male Spiritual care concerns: No <KARLA Dominique Last Filed: 03/30/25 13:45> Exam Narrative: GENERAL: Ill-appearing, well-nourished, and in no acute distress. HEAD: Normocephalic, atraumatic. EYES: PERRLA and EOMI. ENT: Nares clear, no rhinorrhea or epistaxis. Mucous membranes moist. NECK: Supple. CHEST: Clear to auscultation. No respiratory distress. HEART: Regular rate and rhythm. No murmur heard. Normal peripheral pulses. ABDOMEN: Soft, nontender, nondistended, normal active bowel sounds. EXTREMITIES: Normal range of motion. No edema. SKIN: Warm, dry, no rash. NEURO: No focal deficits. Alert and oriented x3. Has spastic movements of extremities global weakness PSYCH: Normal mood and affect. <Agustin Moreno MD - Last Filed: 03/30/25 17:31> Course Vital Signs Vital signs: Vital Signs Temperature 36.6 C 03/30/25 11:49 Pulse Rate 88 03/30/25 11:49 Respiratory Rate 16 03/30/25 11:49 Blood Pressure 110/95 H 03/30/25 11:49 Pulse Oximetry 99 03/30/25 11:49 Oxygen Delivery Room Air 03/30/25 11:49 Temperature 36.6 C 03/30/25 11:49 Pulse Rate 85 03/30/25 14:14 Respiratory Rate 16 03/30/25 11:49 Blood Pressure 110/95 H 03/30/25 11:49 Pulse Oximetry 99 03/30/25 11:49 Oxygen Delivery Room Air 03/30/25 11:49 <Radha Craig PA-C - Last Filed: 03/30/25 13:45> Vital Signs Temperature 36.6 C 03/30/25 11:49 Pulse Rate 88 03/30/25 11:49 Respiratory Rate 16 03/30/25 11:49 Blood Pressure 110/95 H 03/30/25 11:49 Pulse Oximetry 99 03/30/25 11:49 Oxygen Delivery Room Air 03/30/25 11:49 Temperature 36.6 C 03/30/25 11:49 Pulse Rate 85 03/30/25 14:14 Respiratory Rate 16 03/30/25 11:49 Blood Pressure 110/95 H 03/30/25 11:49 Pulse Oximetry 99 03/30/25 11:49 Oxygen Delivery Room Air 03/30/25 11:49 <Agustin Moreno MD - Last Filed: 03/30/25 17:31> MDM - Weakness MDM Narrative Medical decision making narrative: MSE by BREA in triage. <KARLA Dominique Last Filed: 03/30/25 13:45> Lab Data Result diagrams: 03/30/25 13:42 03/30/25 13:42 <KARLA Dominique Last Filed: 03/30/25 13:45> Labs: Lab Results 03/30/25 03/30/25 03/30/25 Range/Units 13:42 13:42 13:42 WBC 4.8 (4.5-10.0) K/mm3 RBC 3.97 L (4.6-6.20) M/mm3 Hgb 12.0 L D (14.0-18.0) g/dL Hct 33.9 L (42.0-52.0) % MCV 85.4 (80-100) fl MCH 30.2 (26-34) pg MCHC 35.4 (32-36) g/dl RDW 13.0 (11.5-14.5) % Plt Count 152 (150-375) k/mm3 MPV 10.7 H (7.4-10.4) fl Immature Gran % (Auto) 0.8 H (0-0.5) % Neut % (Auto) 62.3 (45.5-73.1) % Lymph % (Auto) 21.0 (18.3-44.2) % [place] % (Auto) 15.1 H (2.6-8.5) % Eos % (Auto) 0.2 (0-4.4) % Baso % (Auto) 0.6 (0.2-1.2) % Lymph # (Auto) 1.00 (0.9-3.2) K/mm3 [place] # (Auto) 0.7 H (0.1-0.6) K/mm3 Eos # (Auto) 0.0 (0-0.3) K/mm3 Baso # (Auto) 0.0 (0.0-0.1) K/mm3 Abs Immat Gran (auto) 0.04 H (0.00-0.031) K/mm3 Absolute Neuts (auto) 3.0 (1.3-6.7) K/mm3 Absolute Nucleated RBC 0.000 (0.0-0.012) K/mm3 Nucleated RBC % 0.0 (0.0-0.2) % PT 14.6 (11.1-14.7) Seconds INR 1.1 APTT 25.6 (22.3-36.8) Seconds Sodium Cancelled 119 L* Potassium Cancelled 2.2 L* Chloride Cancelled Carbon Dioxide Anion Gap BUN Creatinine Estim Creat Clear Calc Estimated GFR Glucose Calcium Magnesium (1.6-2.3) mg/dL Total Bilirubin AST ALT Alkaline Phosphatase Troponin I (0.000-0.034) ng/mL Total Protein Albumin TSH (Reflex) (0.465-4.68) uIU/mL Urine Color (Yellow) Urine Appearance (Clear) Urine pH (5.0-9.0) Ur Specific [place] (1.001-1.035) Urine Protein (Negative) mg/dL Urine Glucose (UA) (Negative) mg/dL Urine Ketones (Negative) mg/dL Ur Blood (Man) (Negative) Urine Nitrate (Negative) Urine Bilirubin (Negative) Urine Urobilinogen (<2.0) mg/dL Leukocyte Esterase Rfl (Negative) [place]/UL Urine RBC (0-2) /hpf Urine WBC (0-3) /hpf Ur Squamous Epith Cells (Few) /hpf Urine Bacteria /hpf Urine Casts Urine Opiates Screen (Negative) Urine Methadone Screen (Negative) Ur Barbiturates Screen (Negative) Ur Phencyclidine Scrn (Negative) Ur Amphetamine Screen (Negative) U Benzodiazepines Scrn (Negative) Urine Cocaine Screen (Negative) U Cannabinoids Screen (Negative) Ethyl Alcohol (<10) mg/dL 03/30/25 03/30/25 03/30/25 Range/Units 13:42 13:42 13:42 WBC (4.5-10.0) K/mm3 RBC (4.6-6.20) M/mm3 Hgb (14.0-18.0) g/dL Hct (42.0-52.0) % MCV (80-100) fl MCH (26-34) pg MCHC (32-36) g/dl RDW (11.5-14.5) % Plt Count (150-375) k/mm3 MPV (7.4-10.4) fl Immature Gran % (Auto) (0-0.5) % Neut % (Auto) (45.5-73.1) % Lymph % (Auto) (18.3-44.2) % [place] % (Auto) (2.6-8.5) % Eos % (Auto) (0-4.4) % Baso % (Auto) (0.2-1.2) % Lymph # (Auto) (0.9-3.2) K/mm3 [place] # (Auto) (0.1-0.6) K/mm3 Eos # (Auto) (0-0.3) K/mm3 Baso # (Auto) (0.0-0.1) K/mm3 Abs Immat Gran (auto) (0.00-0.031) K/mm3 Absolute Neuts (auto) (1.3-6.7) K/mm3 Absolute Nucleated RBC (0.0-0.012) K/mm3 Nucleated RBC % (0.0-0.2) % PT (11.1-14.7) Seconds INR APTT (22.3-36.8) Seconds Sodium Potassium Chloride 64 L Carbon Dioxide Cancelled > 40 H Anion Gap Cancelled BUN Cancelled Creatinine Estim Creat Clear Calc Estimated GFR Glucose Calcium Magnesium (1.6-2.3) mg/dL Total Bilirubin AST ALT Alkaline Phosphatase Troponin I (0.000-0.034) ng/mL Total Protein Albumin TSH (Reflex) (0.465-4.68) uIU/mL Urine Color (Yellow) Urine Appearance (Clear) Urine pH (5.0-9.0) Ur Specific [place] (1.001-1.035) Urine Protein (Negative) mg/dL Urine Glucose (UA) (Negative) mg/dL Urine Ketones (Negative) mg/dL Ur Blood (Man) (Negative) Urine Nitrate (Negative) Urine Bilirubin (Negative) Urine Urobilinogen (<2.0) mg/dL Leukocyte Esterase Rfl (Negative) [place]/UL Urine RBC (0-2) /hpf Urine WBC (0-3) /hpf Ur Squamous Epith Cells (Few) /hpf Urine Bacteria /hpf Urine Casts Urine Opiates Screen (Negative) Urine Methadone Screen (Negative) Ur Barbiturates Screen (Negative) Ur Phencyclidine Scrn (Negative) Ur Amphetamine Screen (Negative) U Benzodiazepines Scrn (Negative) Urine Cocaine Screen (Negative) U Cannabinoids Screen (Negative) Ethyl Alcohol (<10) mg/dL 03/30/25 03/30/25 03/30/25 Range/Units 13:42 13:42 13:42 WBC (4.5-10.0) K/mm3 RBC (4.6-6.20) M/mm3 Hgb (14.0-18.0) g/dL Hct (42.0-52.0) % MCV (80-100) fl MCH (26-34) pg MCHC (32-36) g/dl RDW (11.5-14.5) % Plt Count (150-375) k/mm3 MPV (7.4-10.4) fl Immature Gran % (Auto) (0-0.5) % Neut % (Auto) (45.5-73.1) % Lymph % (Auto) (18.3-44.2) % [place] % (Auto) (2.6-8.5) % Eos % (Auto) (0-4.4) % Baso % (Auto) (0.2-1.2) % Lymph # (Auto) (0.9-3.2) K/mm3 [place] # (Auto) (0.1-0.6) K/mm3 Eos # (Auto) (0-0.3) K/mm3 Baso # (Auto) (0.0-0.1) K/mm3 Abs Immat Gran (auto) (0.00-0.031) K/mm3 Absolute Neuts (auto) (1.3-6.7) K/mm3 Absolute Nucleated RBC (0.0-0.012) K/mm3 Nucleated RBC % (0.0-0.2) % PT (11.1-14.7) Seconds INR APTT (22.3-36.8) Seconds Sodium Potassium Chloride Carbon Dioxide Anion Gap BUN 25 H D Creatinine Cancelled 0.66 L Estim Creat Clear Calc Cancelled 116 Estimated GFR Cancelled Glucose Calcium Magnesium (1.6-2.3) mg/dL Total Bilirubin AST ALT Alkaline Phosphatase Troponin I (0.000-0.034) ng/mL Total Protein Albumin TSH (Reflex) (0.465-4.68) uIU/mL Urine Color (Yellow) Urine Appearance (Clear) Urine pH (5.0-9.0) Ur Specific [place] (1.001-1.035) Urine Protein (Negative) mg/dL Urine Glucose (UA) (Negative) mg/dL Urine Ketones (Negative) mg/dL Ur Blood (Man) (Negative) Urine Nitrate (Negative) Urine Bilirubin (Negative) Urine Urobilinogen (<2.0) mg/dL Leukocyte Esterase Rfl (Negative) [place]/UL Urine RBC (0-2) /hpf Urine WBC (0-3) /hpf Ur Squamous Epith Cells (Few) /hpf Urine Bacteria /hpf Urine Casts Urine Opiates Screen (Negative) Urine Methadone Screen (Negative) Ur Barbiturates Screen (Negative) Ur Phencyclidine Scrn (Negative) Ur Amphetamine Screen (Negative) U Benzodiazepines Scrn (Negative) Urine Cocaine Screen (Negative) U Cannabinoids Screen (Negative) Ethyl Alcohol (<10) mg/dL 03/30/25 03/30/25 03/30/25 Range/Units 13:42 13:42 13:42 WBC (4.5-10.0) K/mm3 RBC (4.6-6.20) M/mm3 Hgb (14.0-18.0) g/dL Hct (42.0-52.0) % MCV (80-100) fl MCH (26-34) pg MCHC (32-36) g/dl RDW (11.5-14.5) % Plt Count (150-375) k/mm3 MPV (7.4-10.4) fl Immature Gran % (Auto) (0-0.5) % Neut % (Auto) (45.5-73.1) % Lymph % (Auto) (18.3-44.2) % [place] % (Auto) (2.6-8.5) % Eos % (Auto) (0-4.4) % Baso % (Auto) (0.2-1.2) % Lymph # (Auto) (0.9-3.2) K/mm3 [place] # (Auto) (0.1-0.6) K/mm3 Eos # (Auto) (0-0.3) K/mm3 Baso # (Auto) (0.0-0.1) K/mm3 Abs Immat Gran (auto) (0.00-0.031) K/mm3 Absolute Neuts (auto) (1.3-6.7) K/mm3 Absolute Nucleated RBC (0.0-0.012) K/mm3 Nucleated RBC % (0.0-0.2) % PT (11.1-14.7) Seconds INR APTT (22.3-36.8) Seconds Sodium Potassium Chloride Carbon Dioxide Anion Gap BUN Creatinine Estim Creat Clear Calc Estimated GFR > 60 Glucose Cancelled 117 H Calcium Cancelled 9.4 Magnesium 2.1 (1.6-2.3) mg/dL Total Bilirubin Cancelled AST ALT Alkaline Phosphatase Troponin I (0.000-0.034) ng/mL Total Protein Albumin TSH (Reflex) (0.465-4.68) uIU/mL Urine Color (Yellow) Urine Appearance (Clear) Urine pH (5.0-9.0) Ur Specific [place] (1.001-1.035) Urine Protein (Negative) mg/dL Urine Glucose (UA) (Negative) mg/dL Urine Ketones (Negative) mg/dL Ur Blood (Man) (Negative) Urine Nitrate (Negative) Urine Bilirubin (Negative) Urine Urobilinogen (<2.0) mg/dL Leukocyte Esterase Rfl (Negative) [place]/UL Urine RBC (0-2) /hpf Urine WBC (0-3) /hpf Ur Squamous Epith Cells (Few) /hpf Urine Bacteria /hpf Urine Casts Urine Opiates Screen (Negative) Urine Methadone Screen (Negative) Ur Barbiturates Screen (Negative) Ur Phencyclidine Scrn (Negative) Ur Amphetamine Screen (Negative) U Benzodiazepines Scrn (Negative) Urine Cocaine Screen (Negative) U Cannabinoids Screen (Negative) Ethyl Alcohol (<10) mg/dL 03/30/25 03/30/25 03/30/25 Range/Units 13:42 13:42 13:42 WBC (4.5-10.0) K/mm3 RBC (4.6-6.20) M/mm3 Hgb (14.0-18.0) g/dL Hct (42.0-52.0) % MCV (80-100) fl MCH (26-34) pg MCHC (32-36) g/dl RDW (11.5-14.5) % Plt Count (150-375) k/mm3 MPV (7.4-10.4) fl Immature Gran % (Auto) (0-0.5) % Neut % (Auto) (45.5-73.1) % Lymph % (Auto) (18.3-44.2) % [place] % (Auto) (2.6-8.5) % Eos % (Auto) (0-4.4) % Baso % (Auto) (0.2-1.2) % Lymph # (Auto) (0.9-3.2) K/mm3 [place] # (Auto) (0.1-0.6) K/mm3 Eos # (Auto) (0-0.3) K/mm3 Baso # (Auto) (0.0-0.1) K/mm3 Abs Immat Gran (auto) (0.00-0.031) K/mm3 Absolute Neuts (auto) (1.3-6.7) K/mm3 Absolute Nucleated RBC (0.0-0.012) K/mm3 Nucleated RBC % (0.0-0.2) % PT (11.1-14.7) Seconds INR APTT (22.3-36.8) Seconds Sodium Potassium Chloride Carbon Dioxide Anion Gap BUN Creatinine Estim Creat Clear Calc Estimated GFR Glucose Calcium Magnesium (1.6-2.3) mg/dL Total Bilirubin 1.4 H AST Cancelled 179 H ALT Cancelled 76 H Alkaline Phosphatase Cancelled Troponin I (0.000-0.034) ng/mL Total Protein Albumin TSH (Reflex) (0.465-4.68) uIU/mL Urine Color (Yellow) Urine Appearance (Clear) Urine pH (5.0-9.0) Ur Specific [place] (1.001-1.035) Urine Protein (Negative) mg/dL Urine Glucose (UA) (Negative) mg/dL Urine Ketones (Negative) mg/dL Ur Blood (Man) (Negative) Urine Nitrate (Negative) Urine Bilirubin (Negative) Urine Urobilinogen (<2.0) mg/dL Leukocyte Esterase Rfl (Negative) [place]/UL Urine RBC (0-2) /hpf Urine WBC (0-3) /hpf Ur Squamous Epith Cells (Few) /hpf Urine Bacteria /hpf Urine Casts Urine Opiates Screen (Negative) Urine Methadone Screen (Negative) Ur Barbiturates Screen (Negative) Ur Phencyclidine Scrn (Negative) Ur Amphetamine Screen (Negative) U Benzodiazepines Scrn (Negative) Urine Cocaine Screen (Negative) U Cannabinoids Screen (Negative) Ethyl Alcohol (<10) mg/dL 03/30/25 03/30/25 03/30/25 Range/Units 13:42 13:42 13:42 WBC (4.5-10.0) K/mm3 RBC (4.6-6.20) M/mm3 Hgb (14.0-18.0) g/dL Hct (42.0-52.0) % MCV (80-100) fl MCH (26-34) pg MCHC (32-36) g/dl RDW (11.5-14.5) % Plt Count (150-375) k/mm3 MPV (7.4-10.4) fl Immature Gran % (Auto) (0-0.5) % Neut % (Auto) (45.5-73.1) % Lymph % (Auto) (18.3-44.2) % [place] % (Auto) (2.6-8.5) % Eos % (Auto) (0-4.4) % Baso % (Auto) (0.2-1.2) % Lymph # (Auto) (0.9-3.2) K/mm3 [place] # (Auto) (0.1-0.6) K/mm3 Eos # (Auto) (0-0.3) K/mm3 Baso # (Auto) (0.0-0.1) K/mm3 Abs Immat Gran (auto) (0.00-0.031) K/mm3 Absolute Neuts (auto) (1.3-6.7) K/mm3 Absolute Nucleated RBC (0.0-0.012) K/mm3 Nucleated RBC % (0.0-0.2) % PT (11.1-14.7) Seconds INR APTT (22.3-36.8) Seconds Sodium Potassium Chloride Carbon Dioxide Anion Gap BUN Creatinine Estim Creat Clear Calc Estimated GFR Glucose Calcium Magnesium (1.6-2.3) mg/dL Total Bilirubin AST ALT Alkaline Phosphatase 114 Troponin I 0.026 (0.000-0.034) ng/mL Total Protein Cancelled 8.0 Albumin Cancelled 4.3 TSH (Reflex) 2.460 (0.465-4.68) uIU/mL Urine Color (Yellow) Urine Appearance (Clear) Urine pH (5.0-9.0) Ur Specific [place] (1.001-1.035) Urine Protein (Negative) mg/dL Urine Glucose (UA) (Negative) mg/dL Urine Ketones (Negative) mg/dL Ur Blood (Man) (Negative) Urine Nitrate (Negative) Urine Bilirubin (Negative) Urine Urobilinogen (<2.0) mg/dL Leukocyte Esterase Rfl (Negative) [place]/UL Urine RBC (0-2) /hpf Urine WBC (0-3) /hpf Ur Squamous Epith Cells (Few) /hpf Urine Bacteria /hpf Urine Casts Urine Opiates Screen (Negative) Urine Methadone Screen (Negative) Ur Barbiturates Screen (Negative) Ur Phencyclidine Scrn (Negative) Ur Amphetamine Screen (Negative) U Benzodiazepines Scrn (Negative) Urine Cocaine Screen (Negative) U Cannabinoids Screen (Negative) Ethyl Alcohol < 10 (<10) mg/dL 03/30/25 Range/Units 15:45 WBC (4.5-10.0) K/mm3 RBC (4.6-6.20) M/mm3 Hgb (14.0-18.0) g/dL Hct (42.0-52.0) % MCV (80-100) fl MCH (26-34) pg MCHC (32-36) g/dl RDW (11.5-14.5) % Plt Count (150-375) k/mm3 MPV (7.4-10.4) fl Immature Gran % (Auto) (0-0.5) % Neut % (Auto) (45.5-73.1) % Lymph % (Auto) (18.3-44.2) % [place] % (Auto) (2.6-8.5) % Eos % (Auto) (0-4.4) % Baso % (Auto) (0.2-1.2) % Lymph # (Auto) (0.9-3.2) K/mm3 [place] # (Auto) (0.1-0.6) K/mm3 Eos # (Auto) (0-0.3) K/mm3 Baso # (Auto) (0.0-0.1) K/mm3 Abs Immat Gran (auto) (0.00-0.031) K/mm3 Absolute Neuts (auto) (1.3-6.7) K/mm3 Absolute Nucleated RBC (0.0-0.012) K/mm3 Nucleated RBC % (0.0-0.2) % PT (11.1-14.7) Seconds INR APTT (22.3-36.8) Seconds Sodium Potassium Chloride Carbon Dioxide Anion Gap BUN Creatinine Estim Creat Clear Calc Estimated GFR Glucose Calcium Magnesium (1.6-2.3) mg/dL Total Bilirubin AST ALT Alkaline Phosphatase Troponin I (0.000-0.034) ng/mL Total Protein Albumin TSH (Reflex) (0.465-4.68) uIU/mL Urine Color Dark yellow (Yellow) Urine Appearance Clear (Clear) Urine pH 6.0 (5.0-9.0) Ur Specific [place] 1.023 (1.001-1.035) Urine Protein 1+ H (Negative) mg/dL Urine Glucose (UA) Negative (Negative) mg/dL Urine Ketones 1+ H (Negative) mg/dL Ur Blood (Man) Negative (Negative) Urine Nitrate Negative (Negative) Urine Bilirubin 1+ H (Negative) Urine Urobilinogen 2.0 H (<2.0) mg/dL Leukocyte Esterase Rfl Trace H (Negative) [place]/UL Urine RBC 3-5 H (0-2) /hpf Urine WBC 0-5 (0-3) /hpf Ur Squamous Epith Cells Occasional (Few) /hpf Urine Bacteria None seen /hpf Urine Casts 0-2 Urine Opiates Screen Positive A (Negative) Urine Methadone Screen Negative (Negative) Ur Barbiturates Screen Negative (Negative) Ur Phencyclidine Scrn Negative (Negative) Ur Amphetamine Screen Negative (Negative) U Benzodiazepines Scrn Positive A (Negative) Urine Cocaine Screen Negative (Negative) U Cannabinoids Screen Positive A (Negative) Ethyl Alcohol (<10) mg/dL <Radha Craig PA-C - Last Filed: 03/30/25 13:45> Lab Results 03/30/25 03/30/25 03/30/25 Range/Units 13:42 13:42 13:42 WBC 4.8 (4.5-10.0) K/mm3 RBC 3.97 L (4.6-6.20) M/mm3 Hgb 12.0 L D (14.0-18.0) g/dL Hct 33.9 L (42.0-52.0) % MCV 85.4 (80-100) fl MCH 30.2 (26-34) pg MCHC 35.4 (32-36) g/dl RDW 13.0 (11.5-14.5) % Plt Count 152 (150-375) k/mm3 MPV 10.7 H (7.4-10.4) fl Immature Gran % (Auto) 0.8 H (0-0.5) % Neut % (Auto) 62.3 (45.5-73.1) % Lymph % (Auto) 21.0 (18.3-44.2) % [place] % (Auto) 15.1 H (2.6-8.5) % Eos % (Auto) 0.2 (0-4.4) % Baso % (Auto) 0.6 (0.2-1.2) % Lymph # (Auto) 1.00 (0.9-3.2) K/mm3 [place] # (Auto) 0.7 H (0.1-0.6) K/mm3 Eos # (Auto) 0.0 (0-0.3) K/mm3 Baso # (Auto) 0.0 (0.0-0.1) K/mm3 Abs Immat Gran (auto) 0.04 H (0.00-0.031) K/mm3 Absolute Neuts (auto) 3.0 (1.3-6.7) K/mm3 Absolute Nucleated RBC 0.000 (0.0-0.012) K/mm3 Nucleated RBC % 0.0 (0.0-0.2) % PT 14.6 (11.1-14.7) Seconds INR 1.1 APTT 25.6 (22.3-36.8) Seconds Sodium Cancelled 119 L* Potassium Cancelled 2.2 L* Chloride Cancelled Carbon Dioxide Anion Gap BUN Creatinine Estim Creat Clear Calc Estimated GFR Glucose Calcium Magnesium (1.6-2.3) mg/dL Total Bilirubin AST ALT Alkaline Phosphatase Troponin I (0.000-0.034) ng/mL Total Protein Albumin TSH (Reflex) (0.465-4.68) uIU/mL Urine Color (Yellow) Urine Appearance (Clear) Urine pH (5.0-9.0) Ur Specific [place] (1.001-1.035) Urine Protein (Negative) mg/dL Urine Glucose (UA) (Negative) mg/dL Urine Ketones (Negative) mg/dL Ur Blood (Man) (Negative) Urine Nitrate (Negative) Urine Bilirubin (Negative) Urine Urobilinogen (<2.0) mg/dL Leukocyte Esterase Rfl (Negative) [place]/UL Urine RBC (0-2) /hpf Urine WBC (0-3) /hpf Ur Squamous Epith Cells (Few) /hpf Urine Bacteria /hpf Urine Casts Urine Opiates Screen (Negative) Urine Methadone Screen (Negative) Ur Barbiturates Screen (Negative) Ur Phencyclidine Scrn (Negative) Ur Amphetamine Screen (Negative) U Benzodiazepines Scrn (Negative) Urine Cocaine Screen (Negative) U Cannabinoids Screen (Negative) Ethyl Alcohol (<10) mg/dL 03/30/25 03/30/25 03/30/25 Range/Units 13:42 13:42 13:42 WBC (4.5-10.0) K/mm3 RBC (4.6-6.20) M/mm3 Hgb (14.0-18.0) g/dL Hct (42.0-52.0) % MCV (80-100) fl MCH (26-34) pg MCHC (32-36) g/dl RDW (11.5-14.5) % Plt Count (150-375) k/mm3 MPV (7.4-10.4) fl Immature Gran % (Auto) (0-0.5) % Neut % (Auto) (45.5-73.1) % Lymph % (Auto) (18.3-44.2) % [place] % (Auto) (2.6-8.5) % Eos % (Auto) (0-4.4) % Baso % (Auto) (0.2-1.2) % Lymph # (Auto) (0.9-3.2) K/mm3 [place] # (Auto) (0.1-0.6) K/mm3 Eos # (Auto) (0-0.3) K/mm3 Baso # (Auto) (0.0-0.1) K/mm3 Abs Immat Gran (auto) (0.00-0.031) K/mm3 Absolute Neuts (auto) (1.3-6.7) K/mm3 Absolute Nucleated RBC (0.0-0.012) K/mm3 Nucleated RBC % (0.0-0.2) % PT (11.1-14.7) Seconds INR APTT (22.3-36.8) Seconds Sodium Potassium Chloride 64 L Carbon Dioxide Cancelled > 40 H Anion Gap Cancelled BUN Cancelled Creatinine Estim Creat Clear Calc Estimated GFR Glucose Calcium Magnesium (1.6-2.3) mg/dL Total Bilirubin AST ALT Alkaline Phosphatase Troponin I (0.000-0.034) ng/mL Total Protein Albumin TSH (Reflex) (0.465-4.68) uIU/mL Urine Color (Yellow) Urine Appearance (Clear) Urine pH (5.0-9.0) Ur Specific [place] (1.001-1.035) Urine Protein (Negative) mg/dL Urine Glucose (UA) (Negative) mg/dL Urine Ketones (Negative) mg/dL Ur Blood (Man) (Negative) Urine Nitrate (Negative) Urine Bilirubin (Negative) Urine Urobilinogen (<2.0) mg/dL Leukocyte Esterase Rfl (Negative) [place]/UL Urine RBC (0-2) /hpf Urine WBC (0-3) /hpf Ur Squamous Epith Cells (Few) /hpf Urine Bacteria /hpf Urine Casts Urine Opiates Screen (Negative) Urine Methadone Screen (Negative) Ur Barbiturates Screen (Negative) Ur Phencyclidine Scrn (Negative) Ur Amphetamine Screen (Negative) U Benzodiazepines Scrn (Negative) Urine Cocaine Screen (Negative) U Cannabinoids Screen (Negative) Ethyl Alcohol (<10) mg/dL 03/30/25 03/30/25 03/30/25 Range/Units 13:42 13:42 13:42 WBC (4.5-10.0) K/mm3 RBC (4.6-6.20) M/mm3 Hgb (14.0-18.0) g/dL Hct (42.0-52.0) % MCV (80-100) fl MCH (26-34) pg MCHC (32-36) g/dl RDW (11.5-14.5) % Plt Count (150-375) k/mm3 MPV (7.4-10.4) fl Immature Gran % (Auto) (0-0.5) % Neut % (Auto) (45.5-73.1) % Lymph % (Auto) (18.3-44.2) % [place] % (Auto) (2.6-8.5) % Eos % (Auto) (0-4.4) % Baso % (Auto) (0.2-1.2) % Lymph # (Auto) (0.9-3.2) K/mm3 [place] # (Auto) (0.1-0.6) K/mm3 Eos # (Auto) (0-0.3) K/mm3 Baso # (Auto) (0.0-0.1) K/mm3 Abs Immat Gran (auto) (0.00-0.031) K/mm3 Absolute Neuts (auto) (1.3-6.7) K/mm3 Absolute Nucleated RBC (0.0-0.012) K/mm3 Nucleated RBC % (0.0-0.2) % PT (11.1-14.7) Seconds INR APTT (22.3-36.8) Seconds Sodium Potassium Chloride Carbon Dioxide Anion Gap BUN 25 H D Creatinine Cancelled 0.66 L Estim Creat Clear Calc Cancelled 116 Estimated GFR Cancelled Glucose Calcium Magnesium (1.6-2.3) mg/dL Total Bilirubin AST ALT Alkaline Phosphatase Troponin I (0.000-0.034) ng/mL Total Protein Albumin TSH (Reflex) (0.465-4.68) uIU/mL Urine Color (Yellow) Urine Appearance (Clear) Urine pH (5.0-9.0) Ur Specific [place] (1.001-1.035) Urine Protein (Negative) mg/dL Urine Glucose (UA) (Negative) mg/dL Urine Ketones (Negative) mg/dL Ur Blood (Man) (Negative) Urine Nitrate (Negative) Urine Bilirubin (Negative) Urine Urobilinogen (<2.0) mg/dL Leukocyte Esterase Rfl (Negative) [place]/UL Urine RBC (0-2) /hpf Urine WBC (0-3) /hpf Ur Squamous Epith Cells (Few) /hpf Urine Bacteria /hpf Urine Casts Urine Opiates Screen (Negative) Urine Methadone Screen (Negative) Ur Barbiturates Screen (Negative) Ur Phencyclidine Scrn (Negative) Ur Amphetamine Screen (Negative) U Benzodiazepines Scrn (Negative) Urine Cocaine Screen (Negative) U Cannabinoids Screen (Negative) Ethyl Alcohol (<10) mg/dL 03/30/25 03/30/25 03/30/25 Range/Units 13:42 13:42 13:42 WBC (4.5-10.0) K/mm3 RBC (4.6-6.20) M/mm3 Hgb (14.0-18.0) g/dL Hct (42.0-52.0) % MCV (80-100) fl MCH (26-34) pg MCHC (32-36) g/dl RDW (11.5-14.5) % Plt Count (150-375) k/mm3 MPV (7.4-10.4) fl Immature Gran % (Auto) (0-0.5) % Neut % (Auto) (45.5-73.1) % Lymph % (Auto) (18.3-44.2) % [place] % (Auto) (2.6-8.5) % Eos % (Auto) (0-4.4) % Baso % (Auto) (0.2-1.2) % Lymph # (Auto) (0.9-3.2) K/mm3 [place] # (Auto) (0.1-0.6) K/mm3 Eos # (Auto) (0-0.3) K/mm3 Baso # (Auto) (0.0-0.1) K/mm3 Abs Immat Gran (auto) (0.00-0.031) K/mm3 Absolute Neuts (auto) (1.3-6.7) K/mm3 Absolute Nucleated RBC (0.0-0.012) K/mm3 Nucleated RBC % (0.0-0.2) % PT (11.1-14.7) Seconds INR APTT (22.3-36.8) Seconds Sodium Potassium Chloride Carbon Dioxide Anion Gap BUN Creatinine Estim Creat Clear Calc Estimated GFR > 60 Glucose Cancelled 117 H Calcium Cancelled 9.4 Magnesium 2.1 (1.6-2.3) mg/dL Total Bilirubin Cancelled AST ALT Alkaline Phosphatase Troponin I (0.000-0.034) ng/mL Total Protein Albumin TSH (Reflex) (0.465-4.68) uIU/mL Urine Color (Yellow) Urine Appearance (Clear) Urine pH (5.0-9.0) Ur Specific [place] (1.001-1.035) Urine Protein (Negative) mg/dL Urine Glucose (UA) (Negative) mg/dL Urine Ketones (Negative) mg/dL Ur Blood (Man) (Negative) Urine Nitrate (Negative) Urine Bilirubin (Negative) Urine Urobilinogen (<2.0) mg/dL Leukocyte Esterase Rfl (Negative) [place]/UL Urine RBC (0-2) /hpf Urine WBC (0-3) /hpf Ur Squamous Epith Cells (Few) /hpf Urine Bacteria /hpf Urine Casts Urine Opiates Screen (Negative) Urine Methadone Screen (Negative) Ur Barbiturates Screen (Negative) Ur Phencyclidine Scrn (Negative) Ur Amphetamine Screen (Negative) U Benzodiazepines Scrn (Negative) Urine Cocaine Screen (Negative) U Cannabinoids Screen (Negative) Ethyl Alcohol (<10) mg/dL 03/30/25 03/30/25 03/30/25 Range/Units 13:42 13:42 13:42 WBC (4.5-10.0) K/mm3 RBC (4.6-6.20) M/mm3 Hgb (14.0-18.0) g/dL Hct (42.0-52.0) % MCV (80-100) fl MCH (26-34) pg MCHC (32-36) g/dl RDW (11.5-14.5) % Plt Count (150-375) k/mm3 MPV (7.4-10.4) fl Immature Gran % (Auto) (0-0.5) % Neut % (Auto) (45.5-73.1) % Lymph % (Auto) (18.3-44.2) % [place] % (Auto) (2.6-8.5) % Eos % (Auto) (0-4.4) % Baso % (Auto) (0.2-1.2) % Lymph # (Auto) (0.9-3.2) K/mm3 [place] # (Auto) (0.1-0.6) K/mm3 Eos # (Auto) (0-0.3) K/mm3 Baso # (Auto) (0.0-0.1) K/mm3 Abs Immat Gran (auto) (0.00-0.031) K/mm3 Absolute Neuts (auto) (1.3-6.7) K/mm3 Absolute Nucleated RBC (0.0-0.012) K/mm3 Nucleated RBC % (0.0-0.2) % PT (11.1-14.7) Seconds INR APTT (22.3-36.8) Seconds Sodium Potassium Chloride Carbon Dioxide Anion Gap BUN Creatinine Estim Creat Clear Calc Estimated GFR Glucose Calcium Magnesium (1.6-2.3) mg/dL Total Bilirubin 1.4 H AST Cancelled 179 H ALT Cancelled 76 H Alkaline Phosphatase Cancelled Troponin I (0.000-0.034) ng/mL Total Protein Albumin TSH (Reflex) (0.465-4.68) uIU/mL Urine Color (Yellow) Urine Appearance (Clear) Urine pH (5.0-9.0) Ur Specific [place] (1.001-1.035) Urine Protein (Negative) mg/dL Urine Glucose (UA) (Negative) mg/dL Urine Ketones (Negative) mg/dL Ur Blood (Man) (Negative) Urine Nitrate (Negative) Urine Bilirubin (Negative) Urine Urobilinogen (<2.0) mg/dL Leukocyte Esterase Rfl (Negative) [place]/UL Urine RBC (0-2) /hpf Urine WBC (0-3) /hpf Ur Squamous Epith Cells (Few) /hpf Urine Bacteria /hpf Urine Casts Urine Opiates Screen (Negative) Urine Methadone Screen (Negative) Ur Barbiturates Screen (Negative) Ur Phencyclidine Scrn (Negative) Ur Amphetamine Screen (Negative) U Benzodiazepines Scrn (Negative) Urine Cocaine Screen (Negative) U Cannabinoids Screen (Negative) Ethyl Alcohol (<10) mg/dL 03/30/25 03/30/25 03/30/25 Range/Units 13:42 13:42 13:42 WBC (4.5-10.0) K/mm3 RBC (4.6-6.20) M/mm3 Hgb (14.0-18.0) g/dL Hct (42.0-52.0) % MCV (80-100) fl MCH (26-34) pg MCHC (32-36) g/dl RDW (11.5-14.5) % Plt Count (150-375) k/mm3 MPV (7.4-10.4) fl Immature Gran % (Auto) (0-0.5) % Neut % (Auto) (45.5-73.1) % Lymph % (Auto) (18.3-44.2) % [place] % (Auto) (2.6-8.5) % Eos % (Auto) (0-4.4) % Baso % (Auto) (0.2-1.2) % Lymph # (Auto) (0.9-3.2) K/mm3 [place] # (Auto) (0.1-0.6) K/mm3 Eos # (Auto) (0-0.3) K/mm3 Baso # (Auto) (0.0-0.1) K/mm3 Abs Immat Gran (auto) (0.00-0.031) K/mm3 Absolute Neuts (auto) (1.3-6.7) K/mm3 Absolute Nucleated RBC (0.0-0.012) K/mm3 Nucleated RBC % (0.0-0.2) % PT (11.1-14.7) Seconds INR APTT (22.3-36.8) Seconds Sodium Potassium Chloride Carbon Dioxide Anion Gap BUN Creatinine Estim Creat Clear Calc Estimated GFR Glucose Calcium Magnesium (1.6-2.3) mg/dL Total Bilirubin AST ALT Alkaline Phosphatase 114 Troponin I 0.026 (0.000-0.034) ng/mL Total Protein Cancelled 8.0 Albumin Cancelled 4.3 TSH (Reflex) 2.460 (0.465-4.68) uIU/mL Urine Color (Yellow) Urine Appearance (Clear) Urine pH (5.0-9.0) Ur Specific [place] (1.001-1.035) Urine Protein (Negative) mg/dL Urine Glucose (UA) (Negative) mg/dL Urine Ketones (Negative) mg/dL Ur Blood (Man) (Negative) Urine Nitrate (Negative) Urine Bilirubin (Negative) Urine Urobilinogen (<2.0) mg/dL Leukocyte Esterase Rfl (Negative) [place]/UL Urine RBC (0-2) /hpf Urine WBC (0-3) /hpf Ur Squamous Epith Cells (Few) /hpf Urine Bacteria /hpf Urine Casts Urine Opiates Screen (Negative) Urine Methadone Screen (Negative) Ur Barbiturates Screen (Negative) Ur Phencyclidine Scrn (Negative) Ur Amphetamine Screen (Negative) U Benzodiazepines Scrn (Negative) Urine Cocaine Screen (Negative) U Cannabinoids Screen (Negative) Ethyl Alcohol < 10 (<10) mg/dL 03/30/25 Range/Units 15:45 WBC (4.5-10.0) K/mm3 RBC (4.6-6.20) M/mm3 Hgb (14.0-18.0) g/dL Hct (42.0-52.0) % MCV (80-100) fl MCH (26-34) pg MCHC (32-36) g/dl RDW (11.5-14.5) % Plt Count (150-375) k/mm3 MPV (7.4-10.4) fl Immature Gran % (Auto) (0-0.5) % Neut % (Auto) (45.5-73.1) % Lymph % (Auto) (18.3-44.2) % [place] % (Auto) (2.6-8.5) % Eos % (Auto) (0-4.4) % Baso % (Auto) (0.2-1.2) % Lymph # (Auto) (0.9-3.2) K/mm3 [place] # (Auto) (0.1-0.6) K/mm3 Eos # (Auto) (0-0.3) K/mm3 Baso # (Auto) (0.0-0.1) K/mm3 Abs Immat Gran (auto) (0.00-0.031) K/mm3 Absolute Neuts (auto) (1.3-6.7) K/mm3 Absolute Nucleated RBC (0.0-0.012) K/mm3 Nucleated RBC % (0.0-0.2) % PT (11.1-14.7) Seconds INR APTT (22.3-36.8) Seconds Sodium Potassium Chloride Carbon Dioxide Anion Gap BUN Creatinine Estim Creat Clear Calc Estimated GFR Glucose Calcium Magnesium (1.6-2.3) mg/dL Total Bilirubin AST ALT Alkaline Phosphatase Troponin I (0.000-0.034) ng/mL Total Protein Albumin TSH (Reflex) (0.465-4.68) uIU/mL Urine Color Dark yellow (Yellow) Urine Appearance Clear (Clear) Urine pH 6.0 (5.0-9.0) Ur Specific [place] 1.023 (1.001-1.035) Urine Protein 1+ H (Negative) mg/dL Urine Glucose (UA) Negative (Negative) mg/dL Urine Ketones 1+ H (Negative) mg/dL Ur Blood (Man) Negative (Negative) Urine Nitrate Negative (Negative) Urine Bilirubin 1+ H (Negative) Urine Urobilinogen 2.0 H (<2.0) mg/dL Leukocyte Esterase Rfl Trace H (Negative) [place]/UL Urine RBC 3-5 H (0-2) /hpf Urine WBC 0-5 (0-3) /hpf Ur Squamous Epith Cells Occasional (Few) /hpf Urine Bacteria None seen /hpf Urine Casts 0-2 Urine Opiates Screen Positive A (Negative) Urine Methadone Screen Negative (Negative) Ur Barbiturates Screen Negative (Negative) Ur Phencyclidine Scrn Negative (Negative) Ur Amphetamine Screen Negative (Negative) U Benzodiazepines Scrn Positive A (Negative) Urine Cocaine Screen Negative (Negative) U Cannabinoids Screen Positive A (Negative) Ethyl Alcohol (<10) mg/dL <Agustin Moreno MD - Last Filed: 03/30/25 17:31> ABG Data ABG results: 03/30/25 15:14 Puncture Site Right radial ABG pH 7.578 H* ABG pCO2 46.6 H ABG pO2 50.9 L ABG PO2/FiO2 Ratio 2.42 ABG HCO3 42.5 H ABG O2 Saturation 90.5 L ABG O2 Content 13.9 L ABG Base Excess 18.5 A-a Gradient 43.0 Oxyhemoglobin 86.8 L* Total Hemoglobin 11.4 L O2 Delivery Device Room air O2 Liters/Min Not Reportable FiO2 21 <Radha Craig PA-C - Last Filed: 03/30/25 13:45> 03/30/25 15:14 Puncture Site Right radial ABG pH 7.578 H* ABG pCO2 46.6 H ABG pO2 50.9 L ABG PO2/FiO2 Ratio 2.42 ABG HCO3 42.5 H ABG O2 Saturation 90.5 L ABG O2 Content 13.9 L ABG Base Excess 18.5 A-a Gradient 43.0 Oxyhemoglobin 86.8 L* Total Hemoglobin 11.4 L O2 Delivery Device Room air O2 Liters/Min Not Reportable FiO2 21 <Agustin Moreno MD - Last Filed: 03/30/25 17:31> Critical Care Time Critical Care Time Critical Care Time: Yes <Agustin Moreno MD - Last Filed: 03/30/25 17:31> Total Critical Care Time: 35 <Agustin Moreno MD - Last Filed: 03/30/25 17:31> Discharge Plan Discharge Clinical Impression: Generalized weakness, Acute hyponatremia, Acute hypokalemia <Radha Craig PA-C - Last Filed: 03/30/25 13:45> Patient Disposition: Still a Patient <Radha Craig PA-C - Last Filed: 03/30/25 13:45> Condition: Stable <Radha Criag PA-C - Last Filed: 03/30/25 13:45> Patient Language: [place]ik <KARLA Dominique Last Filed: 03/30/25 13:45> Prescriptions: No Action lisinopril 20 mg tablet 20 mg PO DAILY Patient Comments: Patient reports he has not been taking it as he should methylprednisolone [Medrol (Herb)] 4 mg tablets,dose pack See Rx Instructions .ROUTE .COMPLEX Qty: 21 0RF Rx Instructions: orally per package directions amoxicillin-pot clavulanate 875-125 mg tablet 1 tablet PO Q12H 7 Days Qty: 14 0RF alprazolam 0.5 mg Tablet 0.5 mg PO TID PRN (Reason: Anxiety) albuterol 90 mcg/actuation Aerosol 90 mcg INHALATION TID PRN (Reason: Shortness Of Breath) cephalexin 500 mg capsule 500 mg PO Q12H Qty: 14 0RF omeprazole 20 mg tablet,delayed release (DR/EC) 20 mg PO DAILY Qty: 60 0RF methocarbamol 750 mg tablet 750 mg PO TID PRN (Reason: muscle spasm) Qty: 14 0RF hydrocodone-acetaminophen 5-325 mg tablet 1 tablet PO Q8H PRN (Reason: pain) Qty: 7 0RF <Radha Craig PA-C - Last Filed: 03/30/25 13:45> Follow-up/Referrals: PHYSICIAN NOT ON STAFF,NONSTAFF [Non-Staff] - <Radha Craig PA-C - Last Filed: 03/30/25 13:45> Time of Disposition: 17:27 <Radha Craig PA-C - Last Filed: 03/30/25 13:45> 17:27 <Agustin Moreno MD - Last Filed: 03/30/25 17:31>
--- NOTE | 2025-03-30 13:32 | ECG_ITS ---
Test Date: 2025-03-30 14:38:33 Measurements Intervals [place] Rate: 80 P: 29 OK: 182 QRS: -12 QRSD: 115 T: 5 QT: 424 QTc: 490 Interpretive Statements SINUS RHYTHM POSSIBLE LEFT ATRIAL ENLARGEMENT [-0.1mV P-WAVE IN V1/V2] INCOMPLETE RIGHT BUNDLE BRANCH BLOCK [90+ ms QRS DURATION, TERMINAL R IN V1/V2, 40+ ms S IN I/aVL/V4/V5/V6] NONSPECIFIC ST AND T WAVE ABNORMALITY No previous ECG available for comparison Electronically Signed On 03-30-2025 15:01:38 CDT by Kylie Jackson M.D.
[2025-03-30] MEDS: HYDROcodone/acetaminophen (*CRX) 5-325 MG TABLET 1 TAB PO (13:48)
[2025-03-30 13:53] LABS: Basophils Percent Auto 0.6 % (0.2-1.2); Eosinophils Percent Auto 0.2 % (0-4.4); Hematocrit 33.9 % (42.0-52.0); Immature Granulocyte Absolute 0.04 K/mm3 (0.00-0.031); Immature Granulocyte Percent A 0.8 % (0-0.5); Mean Corpuscular HGB Conc 35.4 g/dl (32-36); Mean Corpuscular Hemoglobin 30.2 pg (26-34); Mean Corpuscular Volume 85.4 fl (80-100); Mean Platelet Volume 10.7 fl (7.4-10.4); Monocytes Absolute Auto 0.7 K/mm3 (0.1-0.6); Monocytes Percent Auto 15.1 % (2.6-8.5); Neutrophils Percent Auto 62.3 % (45.5-73.1); Platelet Count Result 152 k/mm3 (150-375); Red Blood Count 3.97 M/mm3 (4.6-6.20); White Blood Count 4.8 K/mm3 (4.5-10.0)
[2025-03-30 14:04] LABS: Ethanol < 10 mg/dL (<10)
[2025-03-30 14:08] LABS: INR 1.1; Prothrombin Time 14.6 Seconds (11.1-14.7)
[2025-03-30 14:09] LABS: Partial Thromboplastin Time 25.6 Seconds (22.3-36.8)
[2025-03-30 14:13] LABS: Alanine Aminotransferase 76 U/L (6-50); Albumin Level 4.3 g/dL (3.5-5.1); Alkaline Phosphatase 114 U/L (38-126); Aspartate Amino Transferase 179 U/L (17-59); Bilirubin,Total 1.4 mg/dL (0.2-1.3); Blood Urea Nitrogen 25 mg/dL (9-20); Calcium 9.4 mg/dL (8.4-10.2); Carbon Dioxide > 40 mmol/L (22-30); Chloride 64 mmol/L (98-107); Estimated CRCL calculation 116 ml/min; Estimated Glomerular Filt Rate > 60; Glucose 117 mg/dL (65-110); Potassium 2.2 mmol/L (3.4-5.0); Sodium 119 mmol/L (137-145)
[2025-03-30 14:15] LABS: Troponin I 0.026 ng/mL (0.000-0.034)
--- OUTSIDE RECORDS SUMMARY | 2025-03-30 14:57 | XMS_ITS | Clinical Summary ---
Author Organization [facility] [employer] Address [address] [place] [address] Care Team Providers Care Primer Press Operator Name Role Phone Fareed Nuñez MD Primary Care Provider [phone] Zafar Washington MD Unavailable [phone] Source Comments [facility] [employer],non-owned Affiliates and Associated Physician Practices is amultiple site organization consisting of ambulatory clinics and hospital sitesin [place], [place], [place] and [place]. This disclosure is being madepursuant to the Care Everywhere program and may not contain all information available regarding this patient. Last updated 18.[facility] [employer] Allergies No known active allergies Medications * [...] capsule 1 02/23/20 25 Active HYDROcodone-aceta minophen ([place]) 5-325 MG tabletIndications :Polyneuropathy Take 1 (one) tablet by mouth every 6 hours as needed for Pain 30 tablet 03/19/20 25 025 Active HYDROcodone-aceta minophen ([place]) 5-325 MG tabletIndications :Polyneuropathy Take 1 (one) tablet by mouth every 6 hours as needed for Pain 20 tablet 02/23/20 25 025 Discontin ued(Reord er) HYDROcodone-aceta minophen ([place]) 5-325 MG tabletIndications :Polyneuropathy Take 1 (one) [...] Type Department Care Team Description 03/18/2025 Telephone [facility] - Family Medicine [address] [place] [address] Fareed Nuñez MD Neuropathy 03/02/[address] [address] Fareed Nuñez MD Update 02/22/[address] [address] Fareed Nuñez MD Question 02/22/2025 Orders Only [address] [address] Fareed Nuñez MD Polyneuropathy 02/19/[address] [address] Fareed Nuñez MD Neuropathy 02/18/2025 Results Follow-Up [address] [address] Fareed Nuñez MD 02/17/[address] [address] Fareed Nuñez MD Order 02/11/2025 9:15 AM CDT Office Visit [address] [address] Fareed Nuñez MD Polyneuropathy (Primary Dx) 02/08/2025 Nurse Triage [address] [address] Fareed Nuñez MD Neuropathy; Numbness 01/06/[address] [address] Fareed Nuñez MD Refill Request from Last 3 Months Immunizations Immunization Administration Dates Next Due Covid Adelphic Mobile primary monoval ent 12+ yr 0.3mL Purple [...] PM CDT Legal Sex Male 8:41 AM VALET RUNNER Gender Identity Male 05/22/2018 10:53 AM CDT Sexual Orientation Straight 08/30/2021 12 :31 PM CDT 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 on file Not [...] Upcoming Encounters Date Type Department Care Team ([facility] Contact Info) Description 03/31/2025 10:00 AM CDT Appointment [place] [phone] [place] [id number] Health Maintenance Due Date Last Done Comments [...] this topic Medical Devices Implanted Type Area Final Inspector Motorcyles Device Identifier Shelf Expiration Date Model / Serial / Lot Putty Dbm Progenix 5cc Implanted:Qty: 1 on 02/04/2013 by Diogenes Stuart MD at [facility] Spine Lumbar Spinal [employer] 07/09/2014 [id number] / / [id number] Jam Lordotic Implant 15 Mm D X 20mm L Implanted:Qty: 1 on 02/04/2013 by Diogenes Stuart MD at [facility] Spine Lumbar 01/16/2017 6941-9259- 00 / / [id number] 37 Mm X 65 Mm Plate Jam Implanted:Qty: 1 on 02/04/2013 by Diogenes Stuart MD at [facility] Spine Lumbar 07.94516.0 03 / / Jam 26 Mm Variable Screws Implanted:Qty: 6 on 02/04/2013 by Diogenes Stuart MD at [facility] Spine Lumbar 07.26755.0 03 / / Jam 24 Mm Variable Screws Implanted:Qty: 2 on 02/04/2013 by Diogenes Stuart MD at [facility] Spine Lumbar 07.30330.0 02 / / Scrw Canc Full Thrd 4mm X 24mm Implanted:Qty: 1 on 02/04/2013 at [facility] 206.024 / / Putty Grft Bone Dbm Progenix 10cc Implanted:Qty: 1 on 02/04/2013 by Diogenes Stuart MD at [facility] Spine Lumbar Medtronic [employer] 07/28/2014 [id number] / / [id number] Putty Grft Bone Dbm Progenix 10cc Implanted:Qty: 1 on 02/04/2013 by Diogenes Stuart MD at [facility] Spine Lumbar Medtronic [employer] 10/08/2014 [id number] / / [id number] Jam Spine Interbody Implant 15 Mm D X 20 Mm L Implanted:Qty: 1 on 02/04/2013 by Diogenes Stuart MD at [facility] Spine Lumbar 09/18/2017.32595.0 / / [id number] Jam Spine Interbody Implant 15 Mm D X 20 Mm L Implanted:Qty: 1 on 02/04/2013 by Diogenes Stuart MD at [facility] Spine Lumbar 01/16/2015 [id number]- 00 / / [id number] Jam Interbody Implant 15 Mm D X 20 Mm L Implanted:Qty: 1 on 02/04/2013 by Diogenes Stuart MD at [facility] Spine Lumbar 09/18/2017.16019.0 / / [id number] Jam Spine Interbody Implant 15 Mm S X 20 Mm L Implanted:Qty: 1 on 02/04/2013 by Diogenes Stuart MD at [facility] Spine Lumbar 11/18/2015 [id number] 00 / / [id number] Jam Plate 37 Mm X 16 Implanted:Qty: 2 on 02/04/2013 by Diogenes Stuart MD at [facility] Spine Lumbar 07.98945.0 03 / / Lordotic Interbody Implant 15 Mm D X 20 Mml Implanted:Qty: 1 on 02/04/2013 by Diogenes Stuart MD at [facility] Spine Lumbar 01/16/2017 0920-9401- 00 / / [id number] Procedures Procedure Name Priority Date/Time Associated Diagnosis [...] stool LIPID PROFILE Routine 10/31/2020 2:55 PM VALET RUNNER Benign essential hypertension Screening, lipid from Last 3 Months or Most Recently Relevant to Health Maintenance Results * HEPATITIS C AB W/RFLX TO HCV RNA QN PCR (02/11/2025 11:13 AM CDT) Pathologist [facility] Hepatitis C Antibody NON-REACTI VE NON-REACT SHELLIE [facility] Comment: HCV antibody was non-reactive. There is no laboratory evidence of HCV infection. In most cases, no further action is required. However, if recent HCV exposure is suspected, a test for HCV RNA (test code 54999) is suggested. For additional information please refer to http://education.Jivox/faq/BLB25l8 (This link is being provided for informational/ educational purposes only.) Test Performed at: [facility] [address] [place] [address] JENNIFER HOOVER MD Blood BLOOD SPECIMEN / Unknown 02/11/2025 11:13 AM CDT 02/11/2025 11:14 AM CDT us Fareed Nuñez MD LAB - CHEMISTRY ORDERABLES F inal Result [facility] [address] [place] [address] * HIV-1 HIV-2 ANTIBODY + HIV P24 [...] purpose. For additional information please refer to http://education.Jivox/faq/QJR216 (This link is being provided for informational/ educational purposes only.) The performance of this assay has not been clinically validated in patients less than 2 years old. Test Performed at: [facility] [address] [facility] [address] JENNIFER HOOVER MD Blood BLOOD SPECIMEN / Unknown 02/11/2025 11:05 AM CDT 02/11/2025 11:05 AM CDT Fareed Nuñez MD LAB - CHEMISTRY ORDERABLES F inal Result Performing Organization Address [facility] Co de Phone Number [facility] [address] [place] [address] * (ABNORMAL) TSH REFLEX FREE T4 (02/11/2025 11:05 AM CDT) Pathologist [facility] TSH with Reflex FT4 17.64(H) 0.40 - 4.50 mIU/L [facility] Comment: Test Performed at: [facility] [address] [address] JENNIFER HOOVER MD Blood BLOOD SPECIMEN / Unknown 02/11/2025 11:05 AM CDT 02/11/2025 11:05 AM CDT Fareed Nuñez MD LAB - CHEMISTRY ORDERABLES F inal Result Performing Organization Address City/[facility] Co de Phone Number [facility] [address] [place] [address] * ENZO BLOOD SCREEN W/REFLEX TITER (02/11/2025 [...] AC-0: Negative International Consensus on ENZO Patterns (https://doi.org/10.1515/jtfq-2959-3639) For additional information, please refer to http://education.L[employer] Fortress Services.Mobango/faq/DVM329 (This link is being provided for informational/ educational purposes only.) Test Performed at: [facility] [address] [place] [address] JENNIFER HOOVER MD Blood BLOOD SPECIMEN / Unknown 02/11/2025 11:05 AM CDT 02/11/2025 11:05 AM CDT Fareed Nuñez MD LAB - CHEMISTRY ORDERABLES F inal Result [facility] [address] [place] [address] * HEMOGLOBIN A1C (HgbA1C) (02/11/2025 11:05 AM CDT) Pathologist [facility] Hemoglobin A1c 5.4 <5.7 % of total [...] diagnosis of diabetes in children. According to [place] Diabetes Association (ADA) guidelines, hemoglobin A1c <7.0% represents optimal control in non- diabetic patients. Different metrics may apply to specific patient populations. Standards of Medical Care in Diabetes(ADA). Test Performed at: [facility] [address] JENNIFER HOOVER MD Blood BLOOD SPECIMEN / Unknown 02/11/2025 11:05 AM CDT 02/11/2025 11:05 AM CDT Fareed Nuñez MD LAB - CHEMISTRY ORDERABLES F inal Result Performing Organization Address [facility] de Phone Number [address] [address] * (ABNORMAL) VITAMIN B12 FOLATE PANEL (02/11/2025 11:05 AM CDT) Pathologist [facility] Vitamin B12 634 200 - 1100 pg/mL [facility] Folate 2.6(L) ng/mL [facility] Comment: Reference Range Low: <3.4 Borderline: 3.4-5.4 Normal: >5.4 Test Performed at: [facility] [address] JENNIFER HOOVER MD Blood BLOOD SPECIMEN / Unknown 02/11/2025 11:05 AM CDT 02/11/2025 11:05 AM CDT Fareed Nuñez MD LAB - CHEMISTRY ORDERABLES F inal Result Performing Organization Address [facility] de Phone Number [address] [address] * T4 FREE (02/11/2025 11:05 AM CDT) Pathologist [facility] T4 Free 0.9 0.8 - 1.8 ng/dL [facility] Comment: Test Performed at: [facility] [address] JENNIFER HOOVER MD 02/11/2025 11:0 5 AM CDT 02/11/2025 11:05 AM CDT Fareed Nuñez MD LAB - CHEMISTRY ORDERABLES F inal Result Performing Organization Address [facility] de Phone Number [address] [address] * ENDOSCOPY, COLON, DIAGNOSTIC (06/04/2023 8:11 AM CDT) Report Endoscopy POC _ Patient Name: Jennifer Rodriguez Procedure Date: 06/04/2023 8:11 AM Date of : 1975 Admit Type: Outpatient Age: 48 Gender: Male Attending MD: Fariha Aceves MD, [id number] _ Procedure: Colonoscopy Indications: Screening for colorectal [...] bowel preparation was evaluated using the BBPS ([place] Bowel Preparation Scale) with scores of: Right [...] pathology results. Procedure Code(s): --- Professional --- 53180, Colonoscopy, flexible; with biopsy, single or multiple --- Technical --- 99012, Colonoscopy, flexible; with biopsy, single or multiple Diagnosis Code(s): --- Professional --- Z12.11, Encounter for screening for malignant neoplasm of colon K64.8, Other hemorrhoids D12.8, Benign neoplasm of rectum --- Technical --- Z12.11, Encounter for screening for malignant neoplasm of colon K64.8, Other hemorrhoids D12.8, Benign neoplasm of rectum CPT copyright 2020 [employer]. All rights reserved. The codes documented in this report are preliminary and upon remote inpatient coder review may be revised to meet current compliance requirements. __ Fariha Aceves MD 06/04/2023 9:38:20 AM Number of Addenda: 0 Note Initiated On: 06/04/2023 8:11 AM [facility] 06/04/2023 8:11 AM CDT us Tiki Lam METER INSTALLER-THEATRE INSTRUCTOR GI PROCEDURE ORDERABLES Edited Result - Final [facility] [place] [place] [address] * (ABNORMAL) LIPID PROFILE (10/31/2020 2:55 PM VALET RUNNER) Cholesterol 281(H) <200 mg/dL [facility] ACCOUNT BILL Triglycerides 107 <150 mg/dL [facility] ACCOUNT BILL HDL Cholesterol 121 >40 mg/dL [facility] ACCOUNT BILL VLDL Calculated 21 <=30 mg/dL [facility] ACCOUNT BILL LDL Calculated 139(H) <130 mg/dL [facility] ACCOUNT BILL Comment:FASTING Blood BLOOD SPECIMEN / Unknown 10/31/2020 2:55 PM VALET RUNNER 10/31/2020 Narrative Resulting Agency Comment Lab Testing performed at: [facility] [address] [facility] [id number] us Fareed Nuñez MD LAB - CHEMISTRY ORDERABLES F inal Result [facility] ACCOUNT BILL [address] [place] [address] from Last 3 Months or Most Recently Relevant to Health Maintenance Insurance Advance Directives * FULL RESUSCITATION (Latest Code Status on File) Date Activated Date Inactivated Comments 02/04/2013 1:53 PM 02/05/2013 12:52 PM Care Teams Primer Press Operator Relationship Specialty Start Date End Date Fareed Nuñez MD [address] [facility] [address] [place] [address] PCP - General Family Medicine 07/22/19 [place] [address] [facility] [address] [place] [address] Tour Guide/Oncologist Hematology and Oncology 07/31/23
--- OUTSIDE RECORDS SUMMARY | 2025-03-30 14:57 | XMS_ITS | Encounter Summary ---
Author Organization [facility] Address [facility] [place] [address] Care Team Providers Care Foaming Machine Operator Name Role Phone Darryl Hanson MD Primary Care Provider Diogenes Stuart MD Unavailable Fabienne Miller MD Primary Care Provider [phone] Pravin Crowe DO Unavailable [phone] Thong Demarco MD Unavailable [phone] Fareed Nuñez MD Primary Care Provider [phone] Fareed Nuñez MD Unavailable [phone] Fareed Nuñez MD Unavailable Fareed Nuñez MD Unavailable [phone] Zafar Washington MD Unavailable [phone] Fabienne Miller MD Unavailable Encounter Details Date Type Department [...] PM CDT 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 Gender Identity Male 05/22/2018 10:53 AM CDT Sexual Orientation Straight 08/30/2021 12 :31 PM CDT 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 [address] PCP - General 11/21/10 04/10/15 [place] [address] [place] [address] [address] [place] [address] PCP - General Family Medicine 05/10/15 12/18/16 Fareed Nuñez MD [address] [place] [address] PCP - General Family Medicine 07/22/19 Fareed Nuñ[place] [address] [place] [address] [address] [place] [address] PCP - Attributed-C[employer]a 02/03/20 1 Fareed Nuñ[place] [address] [place] [address] [address] [place] [address] PCP - Attributed-[employer] 03/04/21 10/19/21 Fareed Nuñ[place] [address] [place] [address] [address] [place] [address] PCP - Attributed-[employer] Commercial 05/04/22 05/21/23 Fabienne Miller MD [address] [facility] [address] [place] [address] PCP - Attributed-[employer] Commercial 03/21/19 03/21/19 Diogenes Stuart MD [address] [facility] [place] [address] Neurological Surgery 03/10/13 07/30/22 Pravin Crowe DO [address] [place] [address] Orthopedic Surgery 05/10/15 07/30/22 Thong Demarco MD [address] [place] [address] Otolaryngology 05/10/15 07/30/22 [place] [address] [place] [address] Siding Coreboard Inspector/Oncologis t Hematology and Oncology 07/31/23 documented as of this encounter
--- OUTSIDE RECORDS SUMMARY | 2025-03-30 14:57 | XMS_ITS | Encounter Summary ---
Author Organization [facility] Health Address [facility] [facility] [place] [address] Care Team Providers Care Dietary Aide Name Role Phone Darryl Hanson MD Primary Care Provider [phone] Diogenes Stuart MD Unavailable Fabienne Miller MD Primary Care Provider [phone] Pravin Crowe DO Unavailable [phone] Thong Demarco MD Unavailable Fareed Nuñez MD Primary Care Provider [phone] Fareed Nuñez MD Unavailable Fareed Nuñez MD Unavailable Fareed Nuñez MD Unavailable Zafar Washington MD Unavailable [phone] Fabienne Miller MD Unavailable Encounter Details Date Type Department Care Team (Late st Contact Info) Description 12/19/2012 [facility] Outpatient Visit EXTERNAL [place] [address] [facility] [address] [place] [address] Social History Tobacco Use Types Packs/Day Years Used Date Smoking Tobacco: Every Day Cigarettes 1 15 Alcohol Use Standard Drinks/Week Comments Yes 0 (1 standard drink = 0.6 oz pur e alcohol) 12 Beers per week for 13 years Sex and Gender Information Value Date Recorded Sex Assigned at Male 08/30/2021 12:31 PM CDT 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 Gender Identity Male 05/22/2018 10:53 AM CDT Sexual Orientation Straight 08/30/2021 12 :31 PM CDT 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 [address] PCP - General 11/21/10 04/10/15 [place] [address] [place] [address] [address] [place] [address] PCP - General Family Medicine 05/10/15 12/18/16 Fareed Nuñez [place] [address] [place] [address] [address] [place] [address] PCP - General Family Medicine 07/22/19 Fareed Nuñez [place] [address] [place] [address] [address] [place] [address] PCP - Attributed-Cigna 02/03/20 1 Fareed Nuñ[place] [address] [place] [address] [address] [place] [address] PCP - Attributed-[employer] 03/04/21 10/19/21 Fareed Nuñez MD [address] [facility] [address] [place] [address] PCP - Attributed-P[employer] Commercial 05/04/22 05/21/23 Fabienne Miller MD [address] [facility] [address] [place] [address] PCP - Attributed-[employer] Commercial 03/21/19 03/21/19 Diogenes Stuart MD [address] [facility] [place] [address] Neurological Surgery 03/10/13 07/30/22 Pravin Crowe DO [address] [place] [address] Orthopedic Surgery 05/10/15 07/30/22 Thong Demarco MD [address] [place] [address] Otolaryngology 05/10/15 07/30/22 [place] [address] [place] [address] Page Makeup System Operator/Oncologis t Hematology and Oncology 07/31/23 documented as of this encounter
--- OUTSIDE RECORDS SUMMARY | 2025-03-30 14:57 | XMS_ITS | Encounter Summary ---
Author Organization [facility] Address [facility] [facility] [place] [address] Care Team Providers Care Microwave Remote Sensing Scientist Name Role Phone Fareed Nuñez MD Primary Care Provider Zafar [place] MD Unavailable [phone] Encounter Details Date Type Department Care Team (Late Contact Info) Description 02/18/2025 Results Follow-Up [facility] - Family Medicine [address] [place] [address] Fareed Nuñez MD [address] [place] [address] Social History Tobacco Use Types Packs/Day [...] PM CDT 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 Gender Identity Male 05/22/2018 10:53 AM CDT Sexual Orientation Straight 08/30/2021 12 :31 PM CDT 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 Not on file Not on file documented as of this encounter Plan of Treatment Upcoming Encounters Date Type Department Care Team (Late st Contact Info) Description 03/31/2025 10:00 AM CDT Appointment [facility] [address] [facility] [address] [place] [address] Scheduled Orders Name Type Priority Associated Diagnoses Orde r Schedule FOLATE Lab Routine Folate deficiency Expected: 04/15/2025 (Approximate), Expires: 03/20/2026 TSH Lab Routine Acquired hypothyroidism Expected: 04/15/2025 (Approximate), Expires: 03/15/2026 documented as of this encounter Visit Diagnoses Diagnosis Acquired hypothyroidism- Primary Folate deficiency Other B-complex deficiencies documented in this encounter Care Teams Microwave Remote Sensing Scientist Relationship Specialty Start Date End Date Fareed Nuñez MD [address] [facility] [address] [place] [address] PCP - General Family Medicine 07/22/19 [place] [address] [facility] [address] [place] [address] Cut Out Operator/Oncologist Hematology and Oncology 07/31/23 documented as of this encounter
--- OUTSIDE RECORDS SUMMARY | 2025-03-30 14:58 | XMS_ITS | Clinical Summary ---
Author Organization [facility] Address [address] [place] [address] Care Team Providers Care Book Cleaner Name Role Phone Fareed Nuñez MD Primary [...] CDT - 02/08/2025 7:13 PM CDT Emergency [facility] Emergency Department [address] [place] [id number] Darryl Ron, Leg swelling (Primary Dx); Neuropathy Discharge Disposition: Discharge to home or self care 01/29/2025 8:26 PM CDT - 01/30/2025 4:17 AM CDT Emergency [facility] Emergency Department [address] [place] [address] Darron Noel MD Other polyneuropathy (Primary Dx) [...] often do you attend chur ch or denominational services? Never 03/05/2023 Do you belong to any clubs o r organizations such as mormon groups, unions, fraternal or athletic groups, or [...] place to sleep or slept in a long term (including now)? No 03/05/2023 Personal Safety Answer Date Recorded Have you ever been in or are you currently in a harmful physical or emotional relationship or is someone making you feel afraid or unsafe? 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 ([id number]) on 02/08/2025 11:43:05 PM [facility] 02/08/2025 5:21 PM CDT 02/08/2025 11:43 PM CDT Darryl Ron DO ECG ORDERABLES Final Resul t [facility] * Troponin T high-sensitivity series (baseline, 2hr, 4hr, 6hr) (02/08/2025 5:20 PM CDT) Trop T hs <6 <=22 ng/L Comment: Interpretive Data For further hscTnT resources including the diagnostic algorithm and an aid in interpretation, copy and paste this link: [email or web address].testcatalog.org/show/hsTrop Current Interpretive Data last revised 2020. Testing performed by: [facility], [address] [place] [address]., [id number] Blood 02/08/2025 5:20 PM CDT 02/08/2025 5:22 PM CDT Darryl Ron DO LAB BLOOD ORDERABLES Final Result [facility] [address] [facility] Department [place] [address] * Pro B-type natriuretic peptide [...] Last Revised Date: 2018. Testing performed by: [facility], [address] [place] [address], [place]., [address] Blood 02/08/2025 5:20 PM CDT 02/08/2025 5:22 PM CDT Darryl Ron DO LAB BLOOD ORDERABLES Final Result [facility] [address] [facility] Department [place] [address] * CTA Chest Abdomen Pelvis [...] Darryl Flowers M.D. KR: KR Report ID: [id number] Reading Location: [id number] Procedure Note Darryl Flowers MD - 02/08/2025 [...] Darryl Flowers M.D. KR: MCKENZIE Report ID: [id number] Reading Location: [place] [address] Darryl Ron DO IMG CT PROCEDURES Final [...] was last reviewed 2021. Testing performed by: [address] [address] Blood 02/08/2025 10:4 2 AM CDT 02/08/2025 10:55 AM CDT us Meghana AZEVEDO LAB BLOOD ORDERABLES [facility] [address] Department [place] [address] * Differential, auto (02/08/2025 10:42 AM CDT) Neutrophil abs 3.53 1.50 - 6.50 K/cumm Comment:Testing performed by : [address] [address] Imm gran abs 0.03 0.00 - 0.10 K/cumm CORNELIO Comment:Testing performed by : [address] [address] Lymphocyte abs 1.99 0.80 - 3.30 K/cumm COR[facility]IO Comment:Testing performed by : [address] [address] Monocyte abs 0.38 0.20 - 0.80 K/cumm COR[facility]IO Comment:Testing performed by : [address] [address] Eosinophil abs 0.08 0.00 - 0.50 K/cumm [facility] Comment:Testing performed by : [address] [address] Basophil abs 0.08 0.00 - 0.10 K/cumm [facility] Comment:Testing performed by : [address] [address] Neutrophil pct 58.0 % [facility] Comment: Interpretive Data Percent cell count reference ranges are not reported, since discordance with absolute values may lead to misinterpretation of CBC data. Current Interpretive Data was last revised on 2018. Testing performed by: [address] [address] Imm gran pct 0.5 % [facility] Comment: Interpretive Data Percent cell count reference ranges are not reported, since discordance with absolute values may lead to misinterpretation of CBC data. Current Interpretive Data was last revised on 2018. Testing performed by: [address] [address] Lymphocyte pct 32.7 % [facility] Comment: Interpretive Data Percent cell count reference ranges are not reported, since discordance with absolute values may lead to misinterpretation of CBC data. Current Interpretive Data was last revised on 2018. Testing performed by: [address] [address] Monocyte pct 6.2 % [facility] Comment: Interpretive Data Percent cell count reference ranges are not reported, since discordance with absolute values may lead to misinterpretation of CBC data. Current Interpretive Data was last revised on 2018. Testing performed by: [address] [address] Eosinophil pct 1.3 % [facility] Comment: Interpretive Data Percent cell count reference ranges are not reported, since discordance with absolute values may lead to misinterpretation of CBC data. Current Interpretive Data was last revised on 2018. Testing performed by: [address] [address] Basophil pct 1.3 % [facility] Comment: Interpretive Data Percent cell count reference ranges are not reported, since discordance with absolute values may lead to misinterpretation of CBC data. Current Interpretive Data was last revised on 2018. Testing performed by: [address] [address] Blood 02/08/2025 10:4 2 AM CDT 02/08/2025 10:55 AM CDT us Meghana AZEVEDO LAB BLOOD ORDERABLES Final Resul t [facility] [address] [facility] Department [place] [address] * (ABNORMAL) CBC with auto differential (02/08/2025 10:42 AM CDT) WBC 6.09 3.80 - 9.90 K/cumm Comment:Testing performed by : [address] [address] Hgb 14.6 13.0 - 17.5 g/dL [facility]IO Comment:Testing performed by : [address] [address] Hct 42.7 38.9 - 50.3 % [facility] Comment:Testing performed by : [address] [address] Plt 218 150 - 400 K/cumm COR[facility]IO Comment:Testing performed by : [address] [address] MPV 10.2 9.1 - 12.3 fL [facility] Comment:Testing performed by : [address] [address] RBC 4.35 4.30 - 5.80 M/cumm COR[facility]IO Comment:Testing performed by : [address] [address] MCV 98.2(H) 81.3 - 96.4 fL [facility] Comment:Testing performed by : [address] [address] MCH 33.6(H) 27.1 - 33.3 pg CORNELIO GONZALEZ Comment:Testing performed by : [address] [place]., [address] MCHC 34.2 32.3 - 35.7 g/dL CORN[facility]IO GONZALEZ Comment:Testing performed by : [address] [address] RDW CV 13.5 11.1 - 14.9 % CORN[facility]IO GONZALEZ Comment:Testing performed by : [address] [address] RDW SD 48.6(H) 35.7 - 48.1 fL CORN[facility]IO GONZALEZ Comment:Testing performed by : [address] [address] NRBC abs 0.00 0.00 - 0.01 K/cumm CORN[facility]IO GONZALEZ Comment:Testing performed by : [address] [address] Blood 02/08/2025 10:4 2 AM CDT 02/08/2025 10:55 AM CDT us Meghana AZEVEDO LAB BLOOD ORDERABLES Final Resul t [facility] Department of Laboratories [place], [place] [id number] * (ABNORMAL) Comprehensive metabolic panel (02/08/2025 10:42 AM CDT) Sodium 139 135 - 145 mmol/L Comment:Testing performed by : [address] [address] Potassium, pl 3.7 3.3 - 4.9 mmol/L CORN[facility]IO GONZALEZ Comment:Testing performed by : [address] [address] Chloride 95(L) 97 - 110 mmol/L CORN[facility]IO GONZALEZ Comment:Testing performed by : [address] [address] CO2 30 22 - 32 mmol/L COR[facility]IO GONZALEZ Comment:Testing performed by : [address] [address] Anion gap 14 2 - 15 mmol/L CORN[facility]IO GONZALEZ Comment:Testing performed by : [address] [address] BUN 8 6 - 25 mg/dL [facility] Comment:Testing performed by : [address] [address] Creatinine 0.80 0.80 - 1.30 mg/dL COR[facility]IO Comment:Testing performed by : [address] [address] Glucose 104 70 - 199 mg/dL [facility] Comment: Interpretive Data Fasting glucose >/= [...] was last revised 2022. Testing performed by: [address] [address] Calcium 9.8 8.5 - 10.3 mg/dL [facility] Comment:Testing performed by : [address] [address] Bilirubin, total 0.5 0.1 - 1.2 mg/dL [facility] Comment:Testing performed by : [address] [address] Protein, pl 7.4 6.5 - 8.5 g/dL [facility] Comment:Testing performed by : [address] [address] Albumin 4.1 3.5 - 5.0 g/dL [facility] Comment:Testing performed by : [address] [address] Alk phos 157(H) 40 - 130 Units/L [facility] Comment:Testing performed by : [address] [address] ALT 65(H) 7 - 55 Units/L [facility] Comment:Testing performed by : [address] [address] AST 120(H) 10 - 50 Units/L CORNELIO GONZALEZ Comment:Testing performed by : [facility], [address] [place] [address], [place]., [address] Blood 02/08/2025 10:4 2 AM CDT 02/08/2025 10:55 AM CDT us Meghana AZEVEDO LAB BLOOD ORDERABLES Final Resul t CORNELIO GONZALEZ [address] [facility] Department [place] [address] * CT Abdomen Pelvis W Contrast (01/30/2025 [...] - 1.030 [facility] pH, urine 8.0 [facility] Comment: Interpretive Data U rine pH is affected by diet, medications, systemic acid-base disturbances, and renal tubular function. pH may affect urinary stone formation. For example, urine pH below 6.0 may help reduce the tendency for calcium phosphate stones and pH greater than 6.0 may reduce the tendency for uric acid stone formation. Source: [email or web address] Current Interpretive Data was last revised on 2017 Protein, ur ql Negative Negative [facility] Glucose, ur ql Negative Negative [facility] Ketones, ur Negative Negative [facility] Bilirubin, ur Negative Negative [facility] Blood, ur Negative Negative [facility] Urobilinogen, ur 4.0(A) <2.0 mg/dL [facility] Nitrite, ur Negative Negative [facility] Leukocyte esterase, ur Negative Negative [facility] UA reflex comment Reflex conditions for microscopic UA and culture not met. [facility] Urine 01/29/2025 7:06 PM CDT 01/29/2025 7:10 PM CDT Sylvie Mcnair MD LAB MICROBIOLOGY - GENERA L ORDERABLES Final Result [facility] [address] [facility] [place] [address] * eGFR (01/29/2025 4:49 PM CDT) [facility] eGFR >90 >=60 mL/min/1. 73 m2 Comment: [...] MD LAB BLOOD ORDERABLES Aishwarya martins Result [facility] [address] [facility] [place] [address] * Differential, auto (01/29/2025 4:49 PM CDT) [facility] Neutrophil abs 4.4 1.5 - 6.5 K/cumm Imm gran abs 0.0 0.0 - 0.1 K/cumm [facility] Lymphocyte abs 1.4 0.8 - 3.3 K/cumm [facility] Monocyte abs 0.4 0.2 - 0.8 K/cumm [facility] Eosinophil abs 0.0 0.0 - 0.5 K/cumm [facility] Basophil abs 0.1 0.0 - 0.1 K/cumm [facility] Neutrophil pct 69.4 % [facility] Comment: Interpretive Data Percent cell count reference ranges are not reported, since discordance with absolute values may lead to misinterpretation of CBC data. Current Interpretive Data was last revised on 2018. Imm gran pct 0.3 % [facility] Comment: Interpretive Data Percent cell count reference ranges are not reported, since discordance with absolute values may lead to misinterpretation of CBC data. Current Interpretive Data was last revised on 2018. Lymphocyte pct 22.1 % [facility] Comment: Interpretive Data Percent cell count reference ranges are not reported, since discordance with absolute values may lead to misinterpretation of CBC data. Current Interpretive Data was last revised on 2018. Monocyte pct 6.9 % [facility] Comment: Interpretive Data Percent cell count reference ranges are not reported, since discordance with absolute values may lead to misinterpretation of CBC data. Current Interpretive Data was last revised on 2018. Eosinophil pct 0.5 % [facility] Comment: Interpretive Data Percent cell count reference ranges are not reported, since discordance with absolute values may lead to misinterpretation of CBC data. Current Interpretive Data was last revised on 2018. Basophil pct 0.8 % [facility] Comment: Interpretive Data Percent cell count reference ranges are not reported, since discordance with absolute values may lead to misinterpretation of CBC data. Current Interpretive Data was last revised on 2018. Blood 01/29/2025 4:49 PM CDT 01/29/2025 4:52 PM CDT Sylvie Mcnair MD LAB BLOOD ORDERABLES Aishwarya martins Result [facility] [address] [facility] [place] [address] * (ABNORMAL) CBC with auto differential (01/29/2025 4:49 PM CDT) WBC 6.4 3.8 - 9.9 K/cumm Hgb 15.2 13.0 - 17.5 g/dL [facility] Hct 44.4 38.9 - 50.3 % [facility] Plt 169 150 - 400 K/cumm [facility] MPV 10.0 9.1 - 12.3 fL [facility] RBC 4.47 4.30 - 5.80 M/cumm [facility] MCV 99.3(H) 81.3 - 96.4 fL [facility] MCH 34.0(H) 27.1 - 33.3 pg [facility] MCHC 34.2 32.3 - 35.7 g/dL [facility] RDW CV 13.4 11.1 - 14.9 % [facility] RDW SD 49.0(H) 35.7 - 48.1 fL [facility] NRBC abs 0.00 0.00 - 0.01 K/cumm [facility] Blood Venous blood specimen / Unknown 01/29/2025 4:49 PM CDT 01/29/2025 4:52 PM CDT Sylvie Mcnair MD LAB BLOOD ORDERABLES Aishwarya l Result Performing Organization Address City/[facility]/ZIP Co de Phone Number [address] [place] [address] * Lipase (01/29/2025 4:49 PM CDT) [facility] Lipase 37 10 - 99 Units/L Blood Venous blood specimen / Unknown 01/29/2025 4:49 PM CDT 01/29/2025 4:52 PM CDT Sylvie Mcnair MD LAB BLOOD ORDERABLES Aishwarya l Result Performing Organization Address City/[facility]/ZIP Co de Phone Number [address] [place] [address] * (ABNORMAL) Comprehensive metabolic panel (01/29/2025 4:49 PM CDT) [facility] Sodium 137 135 - 145 mmol/L Potassium, pl 4.0 3.3 - 4.9 mmol/L [facility] Chloride 92(L) 97 - 110 mmol/L [facility] CO2 28 22 - 32 mmol/L [facility] Anion gap 17(H) 2 - 15 mmol/L [facility] BUN 8 6 - 25 mg/dL [facility] Creatinine 0.87 0.80 - 1.30 mg/dL [facility] Glucose 109 70 - 199 mg/dL [facility] Comment: Interpretive Data Fasting glucose >/= [...] 2022. Calcium 10.4(H) 8.5 - 10.3 mg/dL [facility] Bilirubin, total 0.9 0.1 - 1.2 mg/dL [facility] Protein, pl 7.8 6.5 - 8.5 g/dL [facility] Albumin 4.4 3.5 - 5.0 g/dL [facility] Alk phos 185(H) 40 - 130 Units/L [facility] ALT 91(H) 7 - 55 Units/L [facility] AST 198(H) 10 - 50 Units/L [facility] Blood 01/29/2025 4:49 PM CDT 01/29/2025 4:52 PM CDT us Sylvie Mcnair MD LAB BLOOD ORDERABLES Aishwarya l Result [facility] [address] [facility] [place] [address] * POCT glucose (01/29/2025 4:47 PM CDT) [facility] Signature Glucose, POC 110 70 - 199 mg/dL POC Performer [id number] [facility] Blood 01/29/2025 4:47 PM CDT 01/29/2025 4:47 PM CDT us Notinfile Unknown LAB POCT ORDERABLES - DEVICE F inal Result [facility] [address] [facility] Department of Laboratories [place] [id number] from Last 3 Months Insurance [employer] Advance Directives For more information, please contact: [phone] * Full Code (Latest Code Status on File) Date Activated Date Inactivated Comments 03/04/2023 12:03 AM 03/07/2023 6:49 PM Care Teams Book Cleaner Relationship Specialty Start Date End Date Fareed Nuñez MD [address] [facility] [address] [place] [address] PCP - General Family Medicine 03/18/23
--- OUTSIDE RECORDS SUMMARY | 2025-03-30 14:58 | XMS_ITS | Referral Summary ---
Author Organization [facility] Address [address] [place] [address] Care Team Providers Care Instructor Ground Services Name Role Phone Fareed Nuñez MD Primary Care Provider + Encounters Date Type Department Care Team Description 02/08/2025 2:58 PM CDT - 02/08/2025 7:13 PM CDT Emergency [facility] Emergency Department [facility] [place] [address] Darryl Ron, Leg swelling (Primary Dx); Neuropathy Discharge Disposition: Discharge to home or self care 01/29/2025 8:26 PM CDT - 01/30/2025 4:17 AM CDT Emergency [facility] Emergency Department [address] [place] [address] Darron Noel MD Other polyneuropathy (Primary Dx) [...] often do you attend chur ch or sikh services? Never 03/05/2023 Do you belong to any clubs o r organizations such as voodoo groups, unions, fraternal or athletic groups, or [...] place to sleep or slept in a assisted (including now)? No 03/05/2023 Personal Safety Answer Date Recorded Have you ever been in or are you currently in a harmful physical or emotional relationship or is someone making you feel afraid or unsafe? 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 Gender Identity Male 02/01/2021 8:24 AM CDT [...] lead (02/08/2025 5:21 PM CDT) Pathologist [facility] Ventricular Rate EKG/Min 70 BPM [facility] Atrial Rate 70 BPM [facility] IA-Interval (MSEC) 174 ms [facility] QRS-Interval (MSEC) 96 ms [facility] QT-Interval (MSEC) 442 ms [facility] QTc 477 ms [facility] P [place] 41 degrees [facility] R [place] -19 degrees [facility] T [place] 20 degrees [facility] Diagnosis Normal sinus rhythm T-wave changes Abnormal ECG No previous ECGs available Confirmed by SULTAN ÁLVAREZ M.D. ([id number]) on 02/08/2025 11:43:05 PM [facility] 02/08/2025 5:21 PM CDT 02/08/2025 11:43 PM CDT Darryl Ron DO ECG ORDERABLES Final Resul t [facility] * Troponin T high-sensitivity series (baseline, 2hr, 4hr, 6hr) (02/08/2025 5:20 PM CDT) Pathologist [facility] Trop T hs <6 <=22 ng/L Comment: Interpretive Data For further hscTnT resources including the diagnostic algorithm and an aid in interpretation, copy and paste this link: https://nrl.testcatalog.org/show/hsTrop Current Interpretive Data last revised 2020. Testing performed by: [facility], [address] [place] [address]., [address] Blood 02/08/2025 5:20 PM CDT 02/08/2025 5:22 PM CDT Darryl Ron DO LAB BLOOD ORDERABLES Final Result [facility] [address] [facility] [place] [address] * Pro B-type natriuretic peptide [...] Last Revised Date: 2018. Testing performed by: [facility], [address] [place] [address]., [address] Blood 02/08/2025 5:20 PM CDT 02/08/2025 5:22 PM CDT Darryl Ron LAB BLOOD ORDERABLES Final Result [facility] [address] [facility] [place] [address] * CTA Chest Abdomen Pelvis (02/08/2025 4:33 [...] Darryl Flowers M.D. KR: KR Report ID: [id number] Reading Location: [id number] Procedure Note Darryl Flowers MD - 02/08/2025 [...] Darryl Flowers M.D. KR: MCKENZIE Report ID: [id number] Reading Location: [place] [address] Darryl Ron DO IMG CT PROCEDURES Final [...] was last reviewed 2021. Testing performed by: [facility], [address] [place] [address]., [id number] Blood 02/08/2025 10:4 2 AM CDT 02/08/2025 10:55 AM CDT us Meghana AZEVEDO LAB BLOOD ORDERABLES Final Resul t [facility] [facility] Department [place] [address] * Differential, auto (02/08/2025 10:42 AM CDT) Neutrophil abs 3.53 1.50 - 6.50 K/cumm Comment:Testing performed by : [address] [address] Imm gran abs 0.03 0.00 - 0.10 K/cumm CORNELIO Comment:Testing performed by : [address] [address] Lymphocyte abs 1.99 0.80 - 3.30 K/cumm COR[facility]IO Comment:Testing performed by : [address] [address] Monocyte abs 0.38 0.20 - 0.80 K/cumm CORNELIO Comment:Testing performed by : [address] [address] Eosinophil abs 0.08 0.00 - 0.50 K/cumm CORNELIO Comment:Testing performed by : [address] [address] Basophil abs 0.08 0.00 - 0.10 K/cumm CORNELIO Comment:Testing performed by : [address] [address] Neutrophil pct 58.0 % COR[facility]IO Comment: Interpretive Data Percent cell count reference ranges are not reported, since discordance with absolute values may lead to misinterpretation of CBC data. Current Interpretive Data was last revised on 2018. Testing performed by: [address] [address] Imm gran pct 0.5 % [facility]IO Comment: Interpretive Data Percent cell count reference ranges are not reported, since discordance with absolute values may lead to misinterpretation of CBC data. Current Interpretive Data was last revised on 2018. Testing performed by: [address] [address] Lymphocyte pct 32.7 % [facility] Comment: Interpretive Data Percent cell count reference ranges are not reported, since discordance with absolute values may lead to misinterpretation of CBC data. Current Interpretive Data was last revised on 2018. Testing performed by: [address] [address] Monocyte pct 6.2 % [facility] Comment: Interpretive Data Percent cell count reference ranges are not reported, since discordance with absolute values may lead to misinterpretation of CBC data. Current Interpretive Data was last revised on 2018. Testing performed by: [address] [address] Eosinophil pct 1.3 % [facility] Comment: Interpretive Data Percent cell count reference ranges are not reported, since discordance with absolute values may lead to misinterpretation of CBC data. Current Interpretive Data was last revised on 2018. Testing performed by: [address] [address] Basophil pct 1.3 % [facility] Comment: Interpretive Data Percent cell count reference ranges are not reported, since discordance with absolute values may lead to misinterpretation of CBC data. Current Interpretive Data was last revised on 2018. Testing performed by: [address] [address] Blood 02/08/2025 10:4 2 AM CDT 02/08/2025 10:55 AM CDT us Meghana AZEVEDO LAB BLOOD ORDERABLES Final Resul t [facility] [address] [facility] Department [place] [address] * (ABNORMAL) CBC with auto differential (02/08/2025 10:42 AM CDT) WBC 6.09 3.80 - 9.90 K/cumm Comment:Testing performed by : [address] [address] Hgb 14.6 13.0 - 17.5 g/dL COR[facility]IO Comment:Testing performed by : [address], [address] Hct 42.7 38.9 - 50.3 % [facility]IO Comment:Testing performed by : [address] [address] Plt 218 150 - 400 K/cumm COR[facility]IO Comment:Testing performed by : [address] [address] MPV 10.2 9.1 - 12.3 fL [facility] Comment:Testing performed by : [address], [address] RBC 4.35 4.30 - 5.80 M/cumm COR[facility]IO Comment:Testing performed by : [address] [address] MCV 98.2(H) 81.3 - 96.4 fL [facility] Comment:Testing performed by : [address] [address] MCH 33.6(H) 27.1 - 33.3 pg [facility] Comment:Testing performed by : [address], [address] MCHC 34.2 32.3 - 35.7 g/dL [facility] Comment:Testing performed by : [address] [address] RDW CV 13.5 11.1 - 14.9 % [facility]IO Comment:Testing performed by : [address], [address] RDW SD 48.6(H) 35.7 - 48.1 fL [facility] Comment:Testing performed by : [address] [address] NRBC abs 0.00 0.00 - 0.01 K/cumm [facility]IO Comment:Testing performed by : [address] [address] Blood 02/08/2025 10:4 2 AM CDT 02/08/2025 10:55 AM CDT us Meghana AZEVEDO LAB BLOOD ORDERABLES Final Resul t [facility] [address] [facility] Department [place] [address] * (ABNORMAL) Comprehensive metabolic panel (02/08/2025 10:42 AM CDT) Sodium 139 135 - 145 mmol/L Comment:Testing performed by : [address] [address] Potassium, pl 3.7 3.3 - 4.9 mmol/L COR[facility]IO Comment:Testing performed by : [address] [address] Chloride 95(L) 97 - 110 mmol/L [facility] Comment:Testing performed by : [address] [address] CO2 30 22 - 32 mmol/L [facility] Comment:Testing performed by : [address] [address] Anion gap 14 2 - 15 mmol/L [facility] Comment:Testing performed by : [address] [address] BUN 8 6 - 25 mg/dL [facility]IO Comment:Testing performed by : [address] [address] Creatinine 0.80 0.80 - 1.30 mg/dL [facility] Comment:Testing performed by : [address] [address] Glucose 104 70 - 199 mg/dL CORNELIO [...] was last revised 2022. Testing performed by: [address] [address] Calcium 9.8 8.5 - 10.3 mg/dL [facility] Comment:Testing performed by : [address] [address] Bilirubin, total 0.5 0.1 - 1.2 mg/dL [facility] Comment:Testing performed by : [address] [address] Protein, pl 7.4 6.5 - 8.5 g/dL [facility] Comment:Testing performed by : [address] [address] Albumin 4.1 3.5 - 5.0 g/dL [facility] Comment:Testing performed by : [address] [address] Alk phos 157(H) 40 - 130 Units/L [facility] Comment:Testing performed by : [address] [address] ALT 65(H) 7 - 55 Units/L [facility] Comment:Testing performed by : [address] [address] AST 120(H) 10 - 50 Units/L [facility] Comment:Testing performed by : [address] [address] Blood 02/08/2025 10:4 2 AM CDT 02/08/2025 10:55 AM CDT us Meghana AZEVEDO LAB BLOOD ORDERABLES Final Resul t [facility] [address] [facility] Department [place] [address] * CT Abdomen Pelvis W [...] by: Bulmaro Marquis M.D. Darron Noel MD [facility] PROCEDURES Final Re sult * (ABNORMAL) Urinalysis reflex to microscopic and culture Urine (01/29/2025 7:06 PM CDT) Color, ur Yellow Yellow Clarity, ur Turbid(A) Clear [facility] Specific gravity, ur 1.011 1.003 - 1.030 [facility] pH, urine 8.[address] [facility] Comment: Interpretive Data U rine pH is affected by diet, medications, systemic acid-base disturbances, and renal tubular function. pH may affect urinary stone formation. For example, urine pH below 6.0 may help reduce the tendency for calcium phosphate stones and pH greater than 6.0 may reduce the tendency for uric acid stone formation. Source: [facility] Current Interpretive Data was last revised on 2017 Protein, ur ql Negative Negative [facility] Glucose, ur ql Negative Negative [facility] Ketones, ur Negative Negative [facility] Bilirubin, ur Negative Negative [facility] Blood, ur Negative Negative [facility] Urobilinogen, ur 4.0(A) <2.0 mg/dL [facility] Nitrite, ur Negative Negative [facility] Leukocyte esterase, ur Negative Negative [facility] UA reflex comment Reflex conditions for microscopic UA and culture not met. [facility] Urine 01/29/2025 7:06 PM CDT 01/29/2025 7:10 PM CDT us Sylvie Mcnair MD LAB MICROBIOLOGY - GENERA L ORDERABLES Final Result [address] Department [place] [address] * eGFR (01/29/2025 4:49 PM CDT) eGFR [...] MD LAB BLOOD ORDERABLES Aishwarya eliezer Result [address] Department [place] [address] * Differential, auto (01/29/2025 4:49 PM CDT) Neutrophil abs 4.4 1.5 - 6.5 K/cumm Imm gran abs 0.0 0.0 - 0.1 K/cumm [facility] Lymphocyte abs 1.4 0.8 - 3.3 K/cumm [facility] Monocyte abs 0.4 0.2 - 0.8 K/cumm [facility] Eosinophil abs 0.0 0.0 - 0.5 K/cumm [facility] Basophil abs 0.1 0.0 - 0.1 K/cumm [facility] Neutrophil pct 69.4 % [facility] Comment: Interpretive Data Percent cell count reference ranges are not reported, since discordance with absolute values may lead to misinterpretation of CBC data. Current Interpretive Data was last revised on 2018. Imm gran pct 0.3 % [facility] Comment: Interpretive Data Percent cell count reference ranges are not reported, since discordance with absolute values may lead to misinterpretation of CBC data. Current Interpretive Data was last revised on 2018. Lymphocyte pct 22.1 % [facility] Comment: Interpretive Data Percent cell count reference ranges are not reported, since discordance with absolute values may lead to misinterpretation of CBC data. Current Interpretive Data was last revised on 2018. Monocyte pct 6.9 % [facility] Comment: Interpretive Data Percent cell count reference ranges are not reported, since discordance with absolute values may lead to misinterpretation of CBC data. Current Interpretive Data was last revised on 2018. Eosinophil pct 0.5 % [facility] Comment: Interpretive Data Percent cell count reference ranges are not reported, since discordance with absolute values may lead to misinterpretation of CBC data. Current Interpretive Data was last revised on 2018. Basophil pct 0.8 % [facility] Comment: Interpretive Data Percent cell count reference ranges are not reported, since discordance with absolute values may lead to misinterpretation of CBC data. Current Interpretive Data was last revised on 2018. Blood 01/29/2025 4:49 PM CDT 01/29/2025 4:52 PM CDT Sylvie Mcnair MD LAB BLOOD ORDERABLES Aishwarya l Result [facility] [address] [facility] Department [place] [address] * (ABNORMAL) CBC with auto differential (01/29/2025 4:49 PM CDT) WBC 6.4 3.8 - 9.9 K/cumm Hgb 15.2 13.0 - 17.5 g/dL [facility] Hct 44.4 38.9 - 50.3 % [facility] Plt 169 150 - 400 K/cumm [facility] MPV 10.0 9.1 - 12.[address] [facility] RBC 4.47 4.30 - 5.80 M/cumm [facility] MCV 99.3(H) 81.3 - 96.[address] [facility] MCH 34.0(H) 27.1 - 33.[address] [facility] MCHC 34.2 32.3 - 35.7 g/dL [facility] RDW CV 13.4 11.1 - 14.9 % [facility] RDW SD 49.0(H) 35.7 - 48.[address] [facility] NRBC abs 0.00 0.00 - 0.01 K/cumm [facility] Blood Venous blood specimen / Unknown 01/29/2025 4:49 PM CDT 01/29/2025 4:52 PM CDT Sylvie Mcnair MD LAB BLOOD ORDERABLES Aishwarya l Result [address] Department [place] [address] * Lipase (01/29/2025 4:49 PM CDT) Pathologist [facility] Lipase 37 10 - 99 Units/L Blood Venous blood specimen / Unknown 01/29/2025 4:49 PM CDT 01/29/2025 4:52 PM CDT Sylvie Mcnair MD LAB BLOOD ORDERABLES Aishwarya l Result Performing Organization Address [facility] Co de Phone Number [address] [place] [address] * (ABNORMAL) Comprehensive metabolic panel (01/29/2025 4:49 PM CDT) Pathologist [facility] Sodium 137 135 - 145 mmol/L Potassium, pl 4.0 3.3 - 4.9 mmol/L [facility] Chloride 92(L) 97 - 110 mmol/L [facility] CO2 28 22 - 32 mmol/L [facility] Anion gap 17(H) 2 - 15 mmol/L [facility] BUN 8 6 - 25 mg/dL [facility] Creatinine 0.87 0.80 - 1.30 mg/dL [facility] Glucose 109 70 - 199 mg/dL [facility] Comment: Interpretive Data Fasting glucose >/= [...] 2022. Calcium 10.4(H) 8.5 - 10.3 mg/dL [facility] Bilirubin, total 0.9 0.1 - 1.2 mg/dL [facility] Protein, pl 7.8 6.5 - 8.5 g/dL [facility] Albumin 4.4 3.5 - 5.0 g/dL [facility] Alk phos 185(H) 40 - 130 Units/L [facility] ALT 91(H) 7 - 55 Units/L [facility] AST 198(H) 10 - 50 Units/L [facility] Blood 01/29/2025 4:49 PM CDT 01/29/2025 4:52 PM CDT us Sylvie Mcnair MD LAB BLOOD ORDERABLES Aishwarya l Result Performing Organization Address City/[facility]/ZIP Co de Phone Number [address] Department of Laboratories [place], [place] [address] * POCT glucose (01/29/2025 4:47 PM CDT) [facility] Glucose, POC 110 70 - 199 mg/dL POC Performer [id number] [facility] Blood 01/29/2025 4:47 PM CDT 01/29/2025 4:47 PM CDT us Notinfile Unknown LAB POCT ORDERABLES - DEVICE F inal Result Performing Organization Address [facility] Co de Phone Number [address] [place] [address] from Last 3 Months Insurance [employer] O[employer] Advance Directives For more information, please contact: [phone] * Full Code (Latest Code Status on File) Date Activated Date Inactivated Comments 03/04/2023 12:03 AM 03/07/2023 6:49 PM Care Teams Instructor Ground Services Relationship Specialty Start Date End Date Fareed Nuñez MD [address] [address] PCP - General Family Medicine 03/18/23
--- OUTSIDE RECORDS SUMMARY | 2025-03-30 14:58 | XMS_ITS | Clinical Summary ---
Author Organization [facility] Address [address] [place] [address] Care Team Providers Care Reject Opener Name Role Phone Unavailable Primary Care Provider [...]
--- OUTSIDE RECORDS SUMMARY | 2025-03-30 14:58 | XMS_ITS | Encounter Summary ---
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
[2025-03-30] MEDS: SODIUM CHLORIDE 0.9% IV 1,000 ML 999 ML IV CONT ×2 (15:04→23:50)
[2025-03-30 15:21] LABS: Base Excess ABG 18.5 mEq/l (+/-2.0); Fractional Inspired Oxygen 21 %; HCO3 ABG 42.5 mEq/l (22.0-26.0); Oxygen Content ABG 13.9 %vol (16.0-22.0); Oxygen Saturation ABG 90.5 % (95.0-100.0); PCO2 ABG 46.6 mmHg (35.0-45.0); PO2 ABG 50.9 mmHg (80.0-100.0); PO2 FiO2 Ratio Arterial Blood 2.42 %; Total Hemoglobin 11.4 g/dL (12.0-18.0)
[2025-03-30 15:31] LABS: pH ABG 7.578 (7.350-7.450)
[2025-03-30 15:33] LABS: Device ROOM AIR; Modified Allen's Test Pass; Oxyhemoglobin 86.8 % THb (90.0-100.0); Site Drawn RIGHT RADIAL
[2025-03-30] MEDS: KCL 20 MEQ/SW 100 ML 100 ML 50 MEQ IVPB (15:42)
[2025-03-30 15:54] LABS: Magnesium 2.1 mg/dL (1.6-2.3)
[2025-03-30 16:04] LABS: Add Urine Microscopic? YES; Appearance Urine Clear (Clear); Bacteria Urine None Seen /hpf; Bilirubin Urine 1+ (Negative); Blood Urine Negative (Negative); Color Urine Dark Yellow (Yellow); Glucose Urine UA Negative (Negative); Ketones Urine 1+ mg/dL (Negative); Leukocyte Esterase Ur Trace LEU/UL (Negative); Nitrate Urine Negative (Negative); Non Pathogenic Casts 0-2; Protein Urine 1+ mg/dL (Negative); Specific Grav Ur 1.023 (1.001-1.035); Squamous Epithelial Cell Urine Occasional /hpf (Few); WBC Urine 0-5 /hpf (0-3)
[2025-03-30 16:20] LABS: Amphetamine Screen Urine Negative (Negative); Barbiturate Screen Urine Negative (Negative); Benzodiazepines Screen Urine Positive (Negative); Cannabinoid Screen Urine Positive (Negative); Cocaine Screen Urine Negative (Negative); Methadone Screen Urine Negative (Negative); Opiate Screen Urine Positive (Negative); Phencyclidine Screen Urine Negative (Negative)
[2025-03-30] MEDS: POTASSIUM CHLORIDE 20 MEQ ER TABLET 40 MEQ PO (19:03)
[2025-03-30] MEDS: SODIUM CHLORIDE 0.9% IV 1,000 ML 125 ML IV CONT (19:12)
--- NOTE | 2025-03-30 21:04 | PC.NURSE ---
Pt c/o pain to bilateral legs and requesting pain medication, spoke with Dr. Galicia and she states she will review his chart and order him something for pain.
--- NOTE | 2025-03-30 21:27 | PM.IMHP ---
H&P: HPI History of Present Illness Date/Time: 03/30/25 21:27 Chief Complaint: Unable to walk Narrative: 49-year-old male with a past medical history of alcohol abuse/heavy alcohol use, essential hypertension, GERD, hepatic steatosis, asthma and tobacco use who presented to the ER due to not being able to walk. The majority of the history comes from the patient who is not the best historian. I requested permission to call his significant other to get more history and he did not want me to call due to the lateness of the hour. Several months of a combination of symptoms. He reports he has been having 3-5 loose watery stools a day they are brown in color with some cramping abdominal pain just prior to onset of diarrhea. His stools are usually preceded immediately by some lower abdominal discomfort and cramping. He reports that he was also having pain with sitting and some urinary frequency. He went to an ER it looks like in July according to his external medication records and was diagnosed with the UTI and given Augmentin for 7 days. He was also at some point started having some nausea and dry heaves. He would occasionally have some vomiting. He went back to ER in September and was given a script for Keflex for what sounds like maybe prostatitis. He reports after the 2nd course of antibiotics with Keflex for 7 days. He reports have the 2nd course of antibiotics his symptoms did improve as far as urinary symptoms unfortunately, he still continued to have issues with stools. He denies having any fevers or chills. He does have a history of IBS with what is usually diarrhea alternating with constipation but he has not had constipation in a long time. He reports that throughout this time he has had about a 10 lb weight loss. He reports that his got to the point that his mouth is so dry that he is having trouble eating things in swallowing because of the dryness of his mouth. Approximately 2 months ago he began having peripheral neuropathy with numbness and tingling in his hands and the symptoms have progressively worsened. He went to his primary provider who ordered gabapentin January 30 that seemed to help for a couple of days before symptoms again worsened. He was subsequently switched to February 11 Lyrica which is been titrated upward to where he is now on 100 mg t.i.d.. He states that despite the Lyrica his symptoms have gotten worse. He is having jerking movements of his muscles. He states that he cannot control his muscles and for at least last week he is not really been able to get out of bed at all. He can no longer walk independently or sit up unassisted within the last week. He also reports that he has been having increasing difficulty urinating. He feels like he is not emptying his bladder. At the time of my evaluation he stated that he felt like he needed to urinate. He was unable to do so in a bladder scan was performed which demonstrated greater than 700 mL of urine. He was scheduled to have a nerve conduction test tomorrow at [facility] but he was in such bad shape that he could not wait and came into our ER for evaluation. He has been evaluated multiple ERs including hours. At once the GRE was started on levothyroxine but he was unsure as to why. His TSH at our ER today was normal. He reports that he has having some difficulty with memory and recall of series of events. He reports that he lost his job in September due to his onset of symptoms and inability to work. The patient used to be a heavy drinker in used to drink a 5th of vodka every other day. He drink this heavy for about 3 years. He cut back to only drinking 2-3 beers a day during the weekday in 10 beers each day on the weekends. It would be nice to clarify when he last drink with his significant other. Review of Systems Review of Systems: 12 systems were reviewed with pertinent positives and negatives per HPI. Except as documented in the HPI, all other systems were reviewed and are negative. [facility] Past Medical History Medical History (Updated 03/31/25 @ 08:10 by Daina Galicia DO) Neuropathy Chronic hyponatremia Hepatic steatosis Noted on CT scan 06/2022 Tobacco abuse Hypertension Asthma Anxiety Surgical History Surgical History H/O knee surgery H/O spinal fusion Social History Social History (Updated 03/31/25 @ 08:21 by Daina Galicia DO) Social History: The patient lives with his significant other. He has 2 daughters. He has smoked 1 pack per day since he was a teenager. He has a history of heavy alcohol use drinking up to 1 5th of vodka every other day with recent decrease in alcohol consumption down to 2-3 beers a day on weekdays and 10 beers a day on weekends. 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 The patient smokes marijuana nightly. Code status: Full code Smoking packs per day: 1 Smoking cigarettes per day: 20.0 Years smoked: 30 Smoking pack-years: 30.00 Smoking status: Current every day smoker Tobacco type: cigarettes Alcohol intake: current Drinks per week: 20 Alcohol use details: social Substance use: current Substance use type: marijuana Last use: 03/29/2025 Do You Feel Safe in your Home?: Yes Lack of Transportation: No Lack of Food: Never True Current Housing: I Have Housing Concerned About Future Housing: No Difficulty Paying Gas/Electric Bills: No Difficulty Paying for Meds: No Currently Unemployed: No Education: Associate Degree Difficulty w/ Childcare or Family Care: No Living arrangements: with family Gender identity (if verbalized by the patient): Male Spiritual care concerns: No Meds Home Medications and Allergies Home Medications ?Medication ?Instructions ?Recorded ?Confirmed ?Type albuterol 90 mcg/actuation aerosol 90 mcg inhalation TID PRN 06/12/22 03/30/25 History inhaler Shortness Of Breath alprazolam 0.5 mg tablet 0.5 mg PO TID PRN Anxiety 06/12/22 03/30/25 History lisinopril 20 mg tablet 20 mg PO DAILY 07/23/24 03/30/25 History omeprazole 20 mg tablet,delayed 20 mg PO DAILY #60 tabs 09/21/24 03/30/25 Rx release hydrocodone 5 mg-acetaminophen 325 1 tablet PO Q8H PRN pain #7 tabs 02/22/25 03/30/25 Rx mg tablet methocarbamol 750 mg tablet 750 mg PO TID PRN muscle spasm #14 02/22/25 03/31/25 Rx tabs folic acid 1 mg tablet 1 mg PO DAILY 03/30/25 03/30/25 History hydrochlorothiazide 25 mg tablet 25 mg PO DAILY 03/30/25 03/31/25 History levothyroxine 50 mcg tablet 50 mcg PO DAILY 03/30/25 03/30/25 History pregabalin 100 mg capsule 100 mg PO TID 03/30/25 03/30/25 History Allergies Allergy/AdvReac Type Severity Reaction Status Date / Time tramadol AdvReac Intermediate Agitated Verified 03/30/25 11:41 Vital Signs Vital Signs - 24 hr 03/30/25 11:49 03/30/25 14:14 03/30/25 21:05 Temperature 97.9 F Pulse Rate 88 85 80 Respiratory Rate 16 15 Blood Pressure 110/95 H Pulse Oximetry 99 98 Oxygen Delivery Room Air Fraction of Inspired Oxygen 03/30/25 21:22 Temperature Pulse Rate 54 L Respiratory Rate 20 Blood Pressure Pulse Oximetry 95 Oxygen Delivery Room Air Fraction of Inspired Oxygen 21 Exam Narrative: Weight 86 kg BMI 28 At the time my evaluation he denied having any vision changes but 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 He was noted to have fasciculations of his tongue and had slowed halting speech. He was alert oriented x3 but had moments of confusion. He was having spastic m ovements of his upper extremities more so than his lower and had increased tone he reports that he is having severe spasms and his arms and legs. He cried out in pain when I 1st across his feet with a blunt-tipped cap.He reports severe pain in his feet even was slightly being burst over. He has decreased pinpoint. He was unable to perform qquf-vq-gdpn or xgnjru-jx-tllv with any reliability he had difficulty with rapid alternating movements. And normoactive bowel sounds but his abdomen was tense and distended. The patient was unable to urinate despite having a pure wick in place bladder scan was performed but the bedside patient greater than 700 of retained urine. He had appropriate mood and affect and was cooperative. Has fair judgment and insight he does report depressed mood due to being so ill and is thought about not wanting to live like this but does not have a plan to harm himself and is just frustrated with the situation. Lungs are clear to auscultation bilaterally, pupils are equal and reactive, heart rate is regular rate and rhythm, 2+ pulses bilateral upper and lower extremities, no JVD. The patient is alert oriented times 4 but he has difficulty providing references for his time frames and occasionally states bizarre responses to questions H&P: Results Labs Labs: Laboratory Tests 03/30/25 13:42 03/30/25 20:48 03/30/25 03/30/25 03/30/25 13:42 13:42 13:42 WBC 4.8 RBC 3.97 L Hgb 12.0 L D Hct 33.9 L MCV 85.4 MCH 30.2 MCHC 35.4 RDW 13.0 Plt Count 152 MPV 10.7 H Immature Gran % (Auto) 0.8 H Neut % (Auto) 62.3 Lymph % (Auto) 21.0 [place] % (Auto) 15.1 H Eos % (Auto) 0.2 Baso % (Auto) 0.6 Lymph # (Auto) 1.00 [place] # (Auto) 0.7 H Eos # (Auto) 0.0 Baso # (Auto) 0.0 Abs Immat Gran (auto) 0.04 H Absolute Neuts (auto) 3.0 Absolute Nucleated RBC 0.000 Nucleated RBC % 0.0 Haptoglobin PT 14.6 INR 1.1 APTT 25.6 Puncture Site ABG pH ABG pCO2 ABG pO2 ABG PO2/FiO2 Ratio ABG HCO3 ABG O2 Saturation ABG O2 Content ABG Base Excess A-a Gradient Oxyhemoglobin Total Hemoglobin O2 Delivery Device O2 Liters/Min FiO2 Sodium Cancelled 119 L* Potassium Cancelled 2.2 L* Chloride Cancelled Carbon Dioxide Anion Gap BUN Creatinine Estim Creat Clear Calc Estimated GFR Glucose Calcium Phosphorus Magnesium Iron TIBC % Saturation Ferritin Total Bilirubin Direct Bilirubin AST ALT Alkaline Phosphatase Lactate Dehydrogenase Troponin I Total Protein Albumin Sbimp-9-Bkrbbymjp Vkbds-0-Cwnzacbbk Xbfd-9-Xjbhribr Muoj-7-Chybqvci Gamma Globulins PEP Interpretation Vitamin B12 Folate TSH (Reflex) Urine Color Urine Appearance Urine pH Ur Specific [place] Urine Protein Urine Glucose (UA) Urine Ketones Ur Blood (Man) Urine Nitrate Urine Bilirubin Urine Urobilinogen Leukocyte Esterase Rfl Urine RBC Urine WBC Ur Squamous Epith Cells Urine Bacteria Urine Casts Urine Opiates Screen Urine Methadone Screen Ur Barbiturates Screen Ur Phencyclidine Scrn Ur Amphetamine Screen U Benzodiazepines Scrn Urine Cocaine Screen U Cannabinoids Screen Ethyl Alcohol 03/30/25 03/30/25 03/30/25 13:42 13:42 13:42 WBC RBC Hgb Hct MCV MCH MCHC RDW Plt Count MPV Immature Gran % (Auto) Neut % (Auto) Lymph % (Auto) [place] % (Auto) Eos % (Auto) Baso % (Auto) Lymph # (Auto) [place] # (Auto) Eos # (Auto) Baso # (Auto) Abs Immat Gran (auto) Absolute Neuts (auto) Absolute Nucleated RBC Nucleated RBC % Haptoglobin PT INR APTT Puncture Site ABG pH ABG pCO2 ABG pO2 ABG PO2/FiO2 Ratio ABG HCO3 ABG O2 Saturation ABG O2 Content ABG Base Excess A-a Gradient Oxyhemoglobin Total Hemoglobin O2 Delivery Device O2 Liters/Min FiO2 Sodium Potassium Chloride 64 L Carbon Dioxide Cancelled > 40 H Anion Gap Cancelled BUN Cancelled Creatinine Estim Creat Clear Calc Estimated GFR Glucose Calcium Phosphorus Magnesium Iron TIBC % Saturation Ferritin Total Bilirubin Direct Bilirubin AST ALT Alkaline Phosphatase Lactate Dehydrogenase Troponin I Total Protein Albumin Umjbe-2-Gsfkdccww Uqzst-6-Pznegwcxu Eieb-9-Ltlscnfo Ngpd-4-Koeppswk Gamma Globulins PEP Interpretation Vitamin B12 Folate TSH (Reflex) Urine Color Urine Appearance Urine pH Ur Specific [place] Urine Protein Urine Glucose (UA) Urine Ketones Ur Blood (Man) Urine Nitrate Urine Bilirubin Urine Urobilinogen Leukocyte Esterase Rfl Urine RBC Urine WBC Ur Squamous Epith Cells Urine Bacteria Urine Casts Urine Opiates Screen Urine Methadone Screen Ur Barbiturates Screen Ur Phencyclidine Scrn Ur Amphetamine Screen U Benzodiazepines Scrn Urine Cocaine Screen U Cannabinoids Screen Ethyl Alcohol 03/30/25 03/30/25 03/30/25 13:42 13:42 13:42 WBC RBC Hgb Hct MCV MCH MCHC RDW Plt Count MPV Immature Gran % (Auto) Neut % (Auto) Lymph % (Auto) [place] % (Auto) Eos % (Auto) Baso % (Auto) Lymph # (Auto) [place] # (Auto) Eos # (Auto) Baso # (Auto) Abs Immat Gran (auto) Absolute Neuts (auto) Absolute Nucleated RBC Nucleated RBC % Haptoglobin PT INR APTT Puncture Site ABG pH ABG pCO2 ABG pO2 ABG PO2/FiO2 Ratio ABG HCO3 ABG O2 Saturation ABG O2 Content ABG Base Excess A-a Gradient Oxyhemoglobin Total Hemoglobin O2 Delivery Device O2 Liters/Min FiO2 Sodium Potassium Chloride Carbon Dioxide Anion Gap BUN 25 H D Creatinine Cancelled 0.66 L Estim Creat Clear Calc Cancelled 116 Estimated GFR Cancelled Glucose Calcium Phosphorus Magnesium Iron TIBC % Saturation Ferritin Total Bilirubin Direct Bilirubin AST ALT Alkaline Phosphatase Lactate Dehydrogenase Troponin I Total Protein Albumin Xnavc-9-Tskixnyjh Txayx-8-Fztfnkkcg Ienj-3-Qwhretdg Udwk-7-Cgcdhxjh Gamma Globulins PEP Interpretation Vitamin B12 Folate TSH (Reflex) Urine Color Urine Appearance Urine pH Ur Specific [place] Urine Protein Urine Glucose (UA) Urine Ketones Ur Blood (Man) Urine Nitrate Urine Bilirubin Urine Urobilinogen Leukocyte Esterase Rfl Urine RBC Urine WBC Ur Squamous Epith Cells Urine Bacteria Urine Casts Urine Opiates Screen Urine Methadone Screen Ur Barbiturates Screen Ur Phencyclidine Scrn Ur Amphetamine Screen U Benzodiazepines Scrn Urine Cocaine Screen U Cannabinoids Screen Ethyl Alcohol 03/30/25 03/30/25 03/30/25 13:42 13:42 13:42 WBC RBC Hgb Hct MCV MCH MCHC RDW Plt Count MPV Immature Gran % (Auto) Neut % (Auto) Lymph % (Auto) [place] % (Auto) Eos % (Auto) Baso % (Auto) Lymph # (Auto) [place] # (Auto) Eos # (Auto) Baso # (Auto) Abs Immat Gran (auto) Absolute Neuts (auto) Absolute Nucleated RBC Nucleated RBC % Haptoglobin PT INR APTT Puncture Site ABG pH ABG pCO2 ABG pO2 ABG PO2/FiO2 Ratio ABG HCO3 ABG O2 Saturation ABG O2 Content ABG Base Excess A-a Gradient Oxyhemoglobin Total Hemoglobin O2 Delivery Device O2 Liters/Min FiO2 Sodium Potassium Chloride Carbon Dioxide Anion Gap BUN Creatinine Estim Creat Clear Calc Estimated GFR > 60 Glucose Cancelled 117 H Calcium Cancelled 9.4 Phosphorus Magnesium 2.1 Iron TIBC % Saturation Ferritin Total Bilirubin Cancelled Direct Bilirubin AST ALT Alkaline Phosphatase Lactate Dehydrogenase Troponin I Total Protein Albumin Aofbf-3-Srkymjkjj Czjhb-6-Bhjltxlom Hvur-3-Ekcpdvax Xeev-9-Nomgkfhy Gamma Globulins PEP Interpretation Vitamin B12 Folate TSH (Reflex) Urine Color Urine Appearance Urine pH Ur Specific [place] Urine Protein Urine Glucose (UA) Urine Ketones Ur Blood (Man) Urine Nitrate Urine Bilirubin Urine Urobilinogen Leukocyte Esterase Rfl Urine RBC Urine WBC Ur Squamous Epith Cells Urine Bacteria Urine Casts Urine Opiates Screen Urine Methadone Screen Ur Barbiturates Screen Ur Phencyclidine Scrn Ur Amphetamine Screen U Benzodiazepines Scrn Urine Cocaine Screen U Cannabinoids Screen Ethyl Alcohol 03/30/25 03/30/25 03/30/25 13:42 13:42 13:42 WBC RBC Hgb Hct MCV MCH MCHC RDW Plt Count MPV Immature Gran % (Auto) Neut % (Auto) Lymph % (Auto) [place] % (Auto) Eos % (Auto) Baso % (Auto) Lymph # (Auto) [place] # (Auto) Eos # (Auto) Baso # (Auto) Abs Immat Gran (auto) Absolute Neuts (auto) Absolute Nucleated RBC Nucleated RBC % Haptoglobin PT INR APTT Puncture Site ABG pH ABG pCO2 ABG pO2 ABG PO2/FiO2 Ratio ABG HCO3 ABG O2 Saturation ABG O2 Content ABG Base Excess A-a Gradient Oxyhemoglobin Total Hemoglobin O2 Delivery Device O2 Liters/Min FiO2 Sodium Potassium Chloride Carbon Dioxide Anion Gap BUN Creatinine Estim Creat Clear Calc Estimated GFR Glucose Calcium Phosphorus Magnesium Iron TIBC % Saturation Ferritin Total Bilirubin 1.4 H Direct Bilirubin AST Cancelled 179 H ALT Cancelled 76 H Alkaline Phosphatase Cancelled Lactate Dehydrogenase Troponin I Total Protein Albumin Ncevh-9-Ytvddvlgt Fcopf-3-Neqltrawn Fody-7-Dweeyihx Ypkb-2-Wqlwfbjg Gamma Globulins PEP Interpretation Vitamin B12 Folate TSH (Reflex) Urine Color Urine Appearance Urine pH Ur Specific [place] Urine Protein Urine Glucose (UA) Urine Ketones Ur Blood (Man) Urine Nitrate Urine Bilirubin Urine Urobilinogen Leukocyte Esterase Rfl Urine RBC Urine WBC Ur Squamous Epith Cells Urine Bacteria Urine Casts Urine Opiates Screen Urine Methadone Screen Ur Barbiturates Screen Ur Phencyclidine Scrn Ur Amphetamine Screen U Benzodiazepines Scrn Urine Cocaine Screen U Cannabinoids Screen Ethyl Alcohol 03/30/25 03/30/25 03/30/25 13:42 13:42 13:42 WBC RBC Hgb Hct MCV MCH MCHC RDW Plt Count MPV Immature Gran % (Auto) Neut % (Auto) Lymph % (Auto) [place] % (Auto) Eos % (Auto) Baso % (Auto) Lymph # (Auto) [place] # (Auto) Eos # (Auto) Baso # (Auto) Abs Immat Gran (auto) Absolute Neuts (auto) Absolute Nucleated RBC Nucleated RBC % Haptoglobin PT INR APTT Puncture Site ABG pH ABG pCO2 ABG pO2 ABG PO2/FiO2 Ratio ABG HCO3 ABG O2 Saturation ABG O2 Content ABG Base Excess A-a Gradient Oxyhemoglobin Total Hemoglobin O2 Delivery Device O2 Liters/Min FiO2 Sodium Potassium Chloride Carbon Dioxide Anion Gap BUN Creatinine Estim Creat Clear Calc Estimated GFR Glucose Calcium Phosphorus Magnesium Iron TIBC % Saturation Ferritin Total Bilirubin Direct Bilirubin AST ALT Alkaline Phosphatase 114 Lactate Dehydrogenase Troponin I 0.026 Total Protein Cancelled 8.0 Albumin Cancelled 4.3 Unprb-3-Exdwwwafv Natmg-6-Irpmebxda Evvh-4-Kollmtis Puec-3-Ecxcwmst Gamma Globulins PEP Interpretation Vitamin B12 Folate TSH (Reflex) 2.460 Urine Color Urine Appearance Urine pH Ur Specific [place] Urine Protein Urine Glucose (UA) Urine Ketones Ur Blood (Man) Urine Nitrate Urine Bilirubin Urine Urobilinogen Leukocyte Esterase Rfl Urine RBC Urine WBC Ur Squamous Epith Cells Urine Bacteria Urine Casts Urine Opiates Screen Urine Methadone Screen Ur Barbiturates Screen Ur Phencyclidine Scrn Ur Amphetamine Screen U Benzodiazepines Scrn Urine Cocaine Screen U Cannabinoids Screen Ethyl Alcohol < 10 03/30/25 03/30/25 03/30/25 15:14 15:45 20:47 WBC RBC Hgb Hct MCV MCH MCHC RDW Plt Count MPV Immature Gran % (Auto) Neut % (Auto) Lymph % (Auto) [place] % (Auto) Eos % (Auto) Baso % (Auto) Lymph # (Auto) [place] # (Auto) Eos # (Auto) Baso # (Auto) Abs Immat Gran (auto) Absolute Neuts (auto) Absolute Nucleated RBC Nucleated RBC % Haptoglobin PT INR APTT Puncture Site Right radial ABG pH 7.578 H* ABG pCO2 46.6 H ABG pO2 50.9 L ABG PO2/FiO2 Ratio 2.42 ABG HCO3 42.5 H ABG O2 Saturation 90.5 L ABG O2 Content 13.9 L ABG Base Excess 18.5 A-a Gradient 43.0 Oxyhemoglobin 86.8 L* Total Hemoglobin 11.4 L O2 Delivery Device Room air O2 Liters/Min Not Reportable FiO2 21 Sodium Potassium Chloride Carbon Dioxide Anion Gap BUN Creatinine Estim Creat Clear Calc Estimated GFR Glucose Calcium Phosphorus 3.4 Magnesium Iron TIBC % Saturation Ferritin Total Bilirubin Direct Bilirubin AST ALT Alkaline Phosphatase Lactate Dehydrogenase Troponin I Total Protein Albumin Rluqz-3-Iibvonlld Hmtpf-2-Qzpurhfaq Cnzc-6-Njpnvlcv Yfrc-9-Dnsohfaj Gamma Globulins PEP Interpretation Vitamin B12 Folate TSH (Reflex) Urine Color Dark yellow Urine Appearance Clear Urine pH 6.0 Ur Specific [place] 1.023 Urine Protein 1+ H Urine Glucose (UA) Negative Urine Ketones 1+ H Ur Blood (Man) Negative Urine Nitrate Negative Urine Bilirubin 1+ H Urine Urobilinogen 2.0 H Leukocyte Esterase Rfl Trace H Urine RBC 3-5 H Urine WBC 0-5 Ur Squamous Epith Cells Occasional Urine Bacteria None seen Urine Casts 0-2 Urine Opiates Screen Positive A Urine Methadone Screen Negative Ur Barbiturates Screen Negative Ur Phencyclidine Scrn Negative Ur Amphetamine Screen Negative U Benzodiazepines Scrn Positive A Urine Cocaine Screen Negative U Cannabinoids Screen Positive A Ethyl Alcohol 03/30/25 03/30/25 20:48 21:45 WBC RBC Hgb Hct MCV MCH MCHC RDW Plt Count MPV Immature Gran % (Auto) Neut % (Auto) Lymph % (Auto) [place] % (Auto) Eos % (Auto) Baso % (Auto) Lymph # (Auto) [place] # (Auto) Eos # (Auto) Baso # (Auto) Abs Immat Gran (auto) Absolute Neuts (auto) Absolute Nucleated RBC Nucleated RBC % Haptoglobin Pending PT INR APTT Puncture Site ABG pH ABG pCO2 ABG pO2 ABG PO2/FiO2 Ratio ABG HCO3 ABG O2 Saturation ABG O2 Content ABG Base Excess A-a Gradient Oxyhemoglobin Total Hemoglobin O2 Delivery Device O2 Liters/Min FiO2 Sodium 119 L* Potassium 2.1 L* Chloride 70 L Carbon Dioxide > 40 H Anion Gap BUN 20 Creatinine 0.64 L Estim Creat Clear Calc 119 Estimated GFR > 60 Glucose 109 Calcium 8.3 L Phosphorus Magnesium Iron Pending TIBC Pending % Saturation Pending Ferritin Pending Total Bilirubin Direct Bilirubin Pending AST ALT Alkaline Phosphatase Lactate Dehydrogenase Pending Troponin I Total Protein Pending Albumin Pending Jntzv-4-Pamendbez Pending Suntj-2-Yrviltqrw Pending Moaz-5-Asvpruyr Pending Rahg-0-Mqqlgrbm Pending Gamma Globulins Pending PEP Interpretation Pending Vitamin B12 Pending Folate Pending TSH (Reflex) Urine Color Urine Appearance Urine pH Ur Specific [place] Urine Protein Urine Glucose (UA) Urine Ketones Ur Blood (Man) Urine Nitrate Urine Bilirubin Urine Urobilinogen Leukocyte Esterase Rfl Urine RBC Urine WBC Ur Squamous Epith Cells Urine Bacteria Urine Casts Urine Opiates Screen Urine Methadone Screen Ur Barbiturates Screen Ur Phencyclidine Scrn Ur Amphetamine Screen U Benzodiazepines Scrn Urine Cocaine Screen U Cannabinoids Screen Ethyl Alcohol Impressions Chest X-Ray 03/30/25 14:28 Impression: 1: Left basilar atelectasis. Head CT 03/30/25 14:51 IMPRESSION: 1. No acute intracranial process. Abdomen/Pelvis CT 03/30/25 16:42 IMPRESSION: 1. No acute intra-abdominal/pelvic process. 2. Mild diffuse bladder wall thickening and small posterior bladder diverticulum suggestive of sequela of chronic outlet obstruction EKG:Test Date: 2025-03-30 14:38:33 Measurements Intervals [place] Rate: 80 P: 29 DE: 182 QRS: -12 QRSD: 115 T: 5 QT: 424 QTc: 490 Interpretive Statements SINUS RHYTHM POSSIBLE LEFT ATRIAL ENLARGEMENT [-0.1mV P-WAVE IN V1/V2] INCOMPLETE RIGHT BUNDLE BRANCH BLOCK [90+ ms QRS DURATION, TERMINAL R IN V1/V2, 40+ ms S IN I/aVL/V4/V5/V6] NONSPECIFIC ST AND T WAVE ABNORMALITY No previous ECG available for comparison All imaging and EKGs personally reviewed and interpreted. And unless stated otherwise agree with radiologic and cardiology interpretation. Assessment and Plan Assessment and plan (1) Acute hypokalemia: Code(s): E87.6 - Hypokalemia Status: Acute (2) Acute hyponatremia: Code(s): E87.1 - Hypo-osmolality and hyponatremia Status: Acute (3) Hepatic steatosis: Code(s): K76.0 - Fatty (change of) liver, not elsewhere classified Status: Chronic (4) Generalized weakness: Code(s): R53.1 - Weakness Status: Acute (5) Heavy alcohol consumption: Code(s): F10.90 - Alcohol use, unspecified, uncomplicated Status: Chronic (6) Metabolic alkalosis with respiratory acidosis: Code(s): E87.4 - Mixed disorder of acid-base balance Status: Acute (7) Acute anemia: Code(s): D64.9 - Anemia, unspecified Status: Acute (8) Dysmetria: Code(s): R27.8 - Other lack of coordination Status: Acute (9) Abnormal lateral conjugate gaze: Code(s): H51.8 - Other specified disorders of binocular movement Status: Acute (10) Alcohol abuse: Code(s): F10.10 - Alcohol abuse, uncomplicated Status: Acute (11) Ataxia: Code(s): R27.0 - Ataxia, unspecified Status: Acute (12) Tobacco abuse: Code(s): Z72.0 - Tobacco use Status: Chronic Plan Patient has a complex presentation and differential is broad. Most concerned for ALS, Friedreich's ataxia, multiple sclerosis, WKS or demyelinating process due to severe hyponatremia. The patient has multiple concerning neurologic findings with fasciculations of the tongue ataxic limb movements spasticity a had decreased sensation. Patient also seems to have flow abnormal eye movements room unsure if he is having possible cranial nerve palsy he also seems to have some mild ptosis but I do not know with the patient's baseline is. Myasthenia gravis is also on the differential although a lot of the patient's symptoms do not fit with myasthenia. Will order MRI of the brain to further evaluate for evidence of demyelination. Will place patient on high-dose thiamin 500 mg IV q.8 hours for 5 days to treat for possible WKS. Neurology has been consulted. Patient may need lumbar puncture and or MRI of the cervical thoracic and lumbar spine depending... Patient's hyponatremia is likely due to a combination of his prior alcohol use and severe dehydration given his prolonged course of diarrhea and nausea and hydrochlorothiazide use. The patient appears intravascularly volume depleted after receiving 1 L fluid bolus in the ER and receiving about a L in maintenance fluids prior to my evaluation. I have given the patient a 2 L of IV fluid bolus. Will check serial sodiums to monitor for careful correction of hyponatremia. The patient's case was discussed with Nephrology agrees and hydration and careful monitoring. Will also replace potassium. After 180 medical into potassium the patient's repeat potassium this a.m. is up to 2.9. Sodium is also improved up to 125 from 11/21. Will change the patient's IV fluids to D5 water at 100 mL an hour and every time the patient's sodiums to start again 4 hours after the last fluid change. Patient also had acute anemia compared to his baseline baseline he will go bed head ranged between 14 and 17 on prior labs. Hemoglobin on presentation was down to 12. Iron studies were obtained in pattern is most consistent with anemia of chronic disease. In fact after IV fluid hydration the patient's hemoglobin has continued strep down to 9.6 which seems like an appropriate drop given the amount of fluids the patient has received. His white count is also dropped to 2.8 and his platelet count has dropped to 114. The patient has pancytopenia. He does have evidence of hepatic steatosis on imaging and given his history of heavy alcohol use he likely has pancytopenia due to previously undiagnosed cirrhosis. Other causes for the patient's neuropathy could be B12 deficiency or folic acid deficiency but these the labs returned normal. His hypothyroidism is adequately treated with levothyroxine. Will give the patient dose of diazepam to see if this does not help with the spasms. Will continue home Lyrica could help with his neuropathic pain. Will also continue p.r.n. [place]. Will stop Toradol that I had previously ordered given his drop in hemoglobin and platelet count. Continue Xanax for anxiety. The patient's ABG seems to be consistent with chronic hypercarbia and he currently seems to be having a secondary acute metabolic acidosis. Do not know the exact reason for this metabolic derangement. I suspect the patient has chronic hypercarbia is due to his longstanding history of smoking. Patient did have some wheezing on exam. The patient denies any active respiratory symptoms in feels like his breathing is at his baseline. Will monitor closely. Urine electrolytes have been ordered to look for reason for the patient's metabolic alkalosis. Nephrology has also been consulted general look forward to further recommendations. 3 hours spent in critical care activities Due to a high probability of clinically significant, life threatening deterioration, the patient required my highest level of preparedness to intervene emergently and I personally spent this critical care time directly and personally managing the patient. This critical care time included obtaining a history; examining the patient; pulse oximetry; ordering and review of studies; arranging urgent treatment with development of a management plan; evaluation of patient's response to treatment; frequent reassessment; and discussions with other providers. It was exclusive of separately billable procedures and treating other patients and teaching time. Please see Assessment and Plan section and the rest of the note for further information on patient assessment and treatment. Quality VTE Prophylaxis VTE prophylaxis: mechanical ordered (SCDs) Hospitalist MIPS Advance Care Plan I have confirmed that the patient's Advanced Care Plan is present, code status is documented, or surrogate decision maker is listed in patient medical record.: Yes Medication Reconciliation I have utilized all available resources to obtain, update and review the patients current medications (includes all prescriptions, OTC, herbals, cannabis, and nutritional supplements).: Yes
[2025-03-30 21:31] LABS: Blood Urea Nitrogen 20 mg/dL (9-20); Calcium 8.3 mg/dL (8.4-10.2); Carbon Dioxide > 40 mmol/L (22-30); Chloride 70 mmol/L (98-107); Estimated CRCL calculation 119 ml/min; Estimated Glomerular Filt Rate > 60; Glucose 109 mg/dL (65-110); Potassium 2.1 mmol/L (3.4-5.0); Sodium 119 mmol/L (137-145)
[2025-03-30 21:44] LABS: Phosphorus 3.4 mg/dL (2.5-4.5)
[2025-03-30] MEDS: POTASSIUM CHLORIDE 20 MEQ PACKET (FOR LIQUID) 40 MEQ BY MOUTH (21:53)
[2025-03-30 22:01] LABS: Iron 258 ug/dL (49-181); Lactate Dehydrogenase 289 U/L (120-246)
[2025-03-30] MEDS: POTASSIUM CHLORIDE INJ 40 MEQ in SODIUM CHLORIDE 0.9% IV 500 ML 130 MEQ IVPB (22:01)
[2025-03-30 22:10] LABS: Percent Iron Saturation 84 % (20-50)
[2025-03-30 22:15] LABS: Alanine Aminotransferase 75 U/L (6-50); Albumin Level 3.5 g/dL (3.5-5.1); Alkaline Phosphatase 89 U/L (38-126); Aspartate Amino Transferase 177 U/L (17-59)
[2025-03-30 23:08] LABS: Folic Acid 6.6 ng/mL (2.76->20)
[2025-03-30] MEDS: POTASSIUM CHLORIDE 20 MEQ PACKET (FOR LIQUID) 40 MEQ PO (23:43)
[2025-03-31] VITALS (16 sets, daily range): BP systolic 123–141; BP diastolic 75–91; PULSE 78–91; RESP 16–18; TEMP 36.6–37; O2SAT 94–98
[2025-03-31 01:03] LABS: Anion Gap 5 mmol/L (4-12); Blood Urea Nitrogen 17 mg/dL (9-20); Calcium 7.9 mg/dL (8.4-10.2); Carbon Dioxide 38 mmol/L (22-30); Chloride 80 mmol/L (98-107); Estimated CRCL calculation 139 ml/min; Estimated Glomerular Filt Rate > 60; Glucose 113 mg/dL (65-110); Sodium 123 mmol/L (137-145)
[2025-03-31] MEDS: LIDOCAINE 2% GEL UROJET 10 ML PKG MUCOUS MEM (01:50)
[2025-03-31] MEDS: HYDROcodone/acetaminophen (*CRX) 5-325 MG TABLET 1 TAB PO (02:20)
[2025-03-31] MEDS: diazePAM INJ (*CRX) 10 MG/2 ML SYRINGE 5 MG IV PUSH (02:23)
[2025-03-31 02:49] LABS: Potassium Urine Random 9.1 meq/L; Sodium Urine Random 13 meq/L
[2025-03-31] MEDS: SODIUM CHLORIDE 0.9% IV 1,000 ML 125 ML IV CONT (03:43)
[2025-03-31] MEDS: THIAMINE 500 MG/NS 100 ML 500 MG/100 ML BAG 200 MG IVPB ×2 (03:49→16:05)
[2025-03-31] MEDS: POTASSIUM CHLORIDE 20 MEQ ER TABLET 40 MEQ PO (03:49)
[2025-03-31 05:12] LABS: Hematocrit 26.9 % (42.0-52.0); Hemoglobin 9.6 g/dL (14.0-18.0); Immature Platelet Fraction Pct 9.3 % (0.9-11.2); Mean Corpuscular HGB Conc 35.7 g/dl (32-36); Mean Corpuscular Hemoglobin 30.8 pg (26-34); Mean Corpuscular Volume 86.2 fl (80-100); Mean Platelet Volume 10.2 fl (7.4-10.4); Platelet Count Result 114 k/mm3 (150-375); Red Blood Count 3.12 M/mm3 (4.6-6.20); Red Cell Distribution Width 13.2 % (11.5-14.5); White Blood Count 2.8 K/mm3 (4.5-10.0)
[2025-03-31 05:22] LABS: Alanine Aminotransferase 78 U/L (6-50); Albumin Level 3.4 g/dL (3.5-5.1); Alkaline Phosphatase 86 U/L (38-126); Anion Gap 3 mmol/L (4-12); Aspartate Amino Transferase 180 U/L (17-59); Bilirubin,Total 0.9 mg/dL (0.2-1.3); Blood Urea Nitrogen 16 mg/dL (9-20); Carbon Dioxide 37 mmol/L (22-30); Chloride 85 mmol/L (98-107); Estimated CRCL calculation 127 ml/min; Estimated Glomerular Filt Rate > 60; Glucose 103 mg/dL (65-110); Magnesium 2.1 mg/dL (1.6-2.3); Potassium 2.9 mmol/L (3.4-5.0); Sodium 125 mmol/L (137-145)
[2025-03-31 05:24] LABS: Creatine Kinase 652 U/L (55-170)
[2025-03-31] MEDS: LEVOTHYROXINE SODIUM 50 MCG TABLET PO (06:35)
--- NOTE | 2025-03-31 08:19 | PCSTNOTE ---
Please refer to the Bedside Swallow Evaluation in the EMR. Please note, silent aspiration cannot be ruled out at bedside.
[2025-03-31] MEDS: DEXTROSE 5% 1,000 ML 1,000 ML 100 ML IV CONT (08:32)
[2025-03-31] MEDS: POTASSIUM CHLORIDE 20 MEQ PACKET (FOR LIQUID) 40 MEQ PO (08:35)
[2025-03-31] MEDS: ENOXAPARIN 40 MG/0.4 ML SYRINGE SUB-Q (08:35)
[2025-03-31] MEDS: PREGABALIN (*CRX) 50 MG CAPSULE 100 MG PO ×2 (08:36→12:19)
[2025-03-31] MEDS: PANTOPRAZOLE 40 MG TABLET PO (08:36)
[2025-03-31] MEDS: lisinopriL 20 MG TABLET PO (08:36)
[2025-03-31] MEDS: FOLIC ACID 1 MG TABLET PO (08:37)
[2025-03-31] MEDS: POTASSIUM CHLORIDE INJ 40 MEQ in SODIUM CHLORIDE 0.9% IV 500 ML 130 MEQ IVPB (10:20)
[2025-03-31 11:53] LABS: Anion Gap 2 mmol/L (4-12); Blood Urea Nitrogen 13 mg/dL (9-20); Calcium 8.2 mg/dL (8.4-10.2); Carbon Dioxide 35 mmol/L (22-30); Chloride 88 mmol/L (98-107); Estimated CRCL calculation 139 ml/min; Estimated Glomerular Filt Rate > 60; Glucose 96 mg/dL (65-110); Potassium 3.5 mmol/L (3.4-5.0); Sodium 125 mmol/L (137-145)
--- NOTE | 2025-03-31 12:40 | P.CONNP_ITS ---
Assessment and Plan Assessment and plan (1) Hyponatremia: Code(s): E87.1 - Hypo-osmolality and hyponatremia Status: Acute Assessment and Plan: * slow and steady improvement noted since admission * suspect multifactorial etiology: * prerenal factors (nausea with decreased oral intake + diarrhea) * urinary retention * HCTZ use * PPI use * pain medications/narcotics * history of thyroid disease * history of alcohol use * liver disease(?) * goal of therapy is a rate of change in sodium ~ 6 - 8mmol/L in 24 hours (so far in range) * follow-up on urine studies * check cortisol, SPEP, UPEP, serum/urine osmolality * follow trend of repeat sodium levels (2) Hypokalemia: Code(s): E87.6 - Hypokalemia Status: Acute Assessment and Plan: * possibly due to GI loss and total body store depletion * adequate magnesium noted * aggressive IV and oral replacement as needed * follow trend of K+ levels (3) Generalized weakness: Code(s): R53.1 - Weakness Status: Acute Assessment and Plan: * presentation is quite complex as outlined by drum drier * MRI of brain ordered * Neurology consulted * follow clinical symptoms (4) Anemia: Code(s): D64.9 - Anemia, unspecified Status: Acute Assessment and Plan: * downward trend noted since admission * this is partly explained by aggressive IVF resuscitation * now with noted pancytopenia -- due to liver disease? * adequate iron stores by anemia stodies * follow trend of H/H (5) Alcohol abuse: Code(s): F10.10 - Alcohol abuse, uncomplicated Status: Acute Assessment and Plan: * on thiamine and folate * KAELA (6) Liver disease: Code(s): K76.9 - Liver disease, unspecified Status: Acute Assessment and Plan: * due to history of alcohol use(?) * CT imaging in June 2022 with Diffuse hepatic steatosis * however, repeat CT imaging of A/P including on this admission make not mention of liver issues * continue supportive therapy I will continue to follow the patient with you while he remains hospitalized and make further recommendations as deemed necessary. Thank you for allowing me to participate in the care of this patient. L History of Present Illness Reason for Consult Consult date: 03/31/25 Reason for consult: hyponatremia and hypokalemia Chief Complaint Chief complaint: hyponatremia,hypokalemia,muscle weakness History of Present Illness Narrative: The patient is a 49-year-old male with a past medical history as outlined below who presented to the ER due to generalized weakness and inability to walk. A great majority of the history that I have obtained is from review of the electronic medical record as is difficult to get a full and complete history from the patient as well as his significant other at bedside. Over last several months the patient has a multitude of symptoms and issues that range from diarrhea, abdominal cramping, urinary frequency, urinary retention, nausea, vomiting, constipation, dry mouth, dysphagia, peripheral neuropathy, numbness, tingling, muscle weakness, muscle jerking, as well as muscle twitching. He has had a variety of ER visits and visits with his primary care physician with these multitude of issues and problems and has had treatment with very medications including antibiotics, and the most recent addition of Lyrica. Despite these interventions, his overall clinical symptoms and problems continued to worsen to the point where he has been able to get out of bed due to his profound weakness and lack of muscle control. He apparently was referred to Neurology and a nerve conduction study was ordered at [facility] but given his ongoing decline and worsening of the symptoms, he presented to the ER for further assessment. Workup and evaluation emergency room demonstrated the patient be hemodynamically stable and afebrile. Routine blood work demonstrated normal CBC but his chemistry showed hypo kalemia in association with hyponatremia with a potassium level of 2.2 and a sodium level of 119. Interestingly, he had evidence of a metabolic alkalosis as well but his magnesium, calcium, and phosphorus were all within normal limits. His urine drug screen was positive for benzodiazepines, opioids, and marijuana. He had evidence of urinary retention as bladder scan showed greater than 700 cc of urine and a Cortez catheter was placed. Given his history of alcohol abuse, and alcohol level was checked and was within normal limits. Imaging studies included a head CT was unremarkable for any acute pathology and a subsequent CT scan of the abdomen pelvis only demonstrated changes/ findings suggestive of chronic outlet obstruction. Given his laboratory abnormalities in conjunction with his multitude of symptoms with the concern being some type of neurological disease that is yet to be diagnosed, he was admitted to the hospital for further evaluation and therapy. Since his admission, his been receiving IV fluids and aggressive potassium supplementation which has slowly improved both his sodium as well as his potassium level. In an effort to prevent over-correction of his sodium level, his most recent IV fluids were changed to D5W and his sodium level appears to be relatively stable at this time. Renal consultation was requested due to his acute hyponatremia along with his hypokalemia. From review his records, it would seem that he has some degree of chronic hyponatremia that dates back as far as 2018. His sodium level seems to fluctuate anywhere from 132-135 millimoles per L although as already mentioned, on admission to the emergency room his sodium level is 119 millimoles per L. as far as I can tell, he has never had any significant issues or problems with regard to hypokalemia. As already mentioned above, it took a significant effort and multiple doses of IV and oral potassium to get his serum potassium level within acceptable range and his sodium level has already improved with IV fluid resuscitation arguing in favor of volume depletion as the cause to this issue/problem. Currently, at the time my evaluation, he appears to be in no acute distress but seems quite sleepy / lethargic due to the events overnight and subsequent admission. Review of Systems 2 Review of Systems: As per HPI. [facility] Past Medical History Medical History (Updated 03/31/25 @ 16:56 by Lashawn Dennis MD) Chronic hyponatremia Neuropathy Hepatic steatosis Noted on CT scan 06/2022 Tobacco abuse Hypertension Asthma Anxiety Surgical History Surgical History H/O knee surgery H/O spinal fusion Social History Social History (Updated 03/31/25 @ 08:21 by Daina Galicia DO) Social History: The patient lives with his significant other. He has 2 daughters. He has smoked 1 pack per day since he was a teenager. He has a history of heavy alcohol use drinking up to 1 5th of vodka every other day with recent decrease in alcohol consumption down to 2-3 beers a day on weekdays and 10 beers a day on weekends. 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 The patient smokes marijuana nightly. Code status: Full code Smoking packs per day: 1 Smoking cigarettes per day: 20.0 Years smoked: 30 Smoking pack-years: 30.00 Smoking status: Current every day smoker Tobacco type: cigarettes Alcohol intake: current Drinks per week: 20 Alcohol use details: social Substance use: current Substance use type: marijuana Last use: 03/29/2025 Do You Feel Safe in your Home?: Yes Lack of Transportation: No Lack of Food: Never True Current Housing: I Have Housing Concerned About Future Housing: No Difficulty Paying Gas/Electric Bills: No Difficulty Paying for Meds: No Currently Unemployed: No Education: Associate Degree Difficulty w/ Childcare or Family Care: No Living arrangements: with family Gender identity (if verbalized by the patient): Male Spiritual care concerns: No Meds Home Medications and Allergies Home Medications ?Medication ?Instructions ?Recorded ?Confirmed ?Type albuterol 90 mcg/actuation aerosol 90 mcg inhalation TID PRN 06/12/22 03/30/25 History inhaler Shortness Of Breath alprazolam 0.5 mg tablet 0.5 mg PO TID PRN Anxiety 06/12/22 03/30/25 History lisinopril 20 mg tablet 20 mg PO DAILY 07/23/24 03/30/25 History omeprazole 20 mg tablet,delayed 20 mg PO DAILY #60 tabs 09/21/24 03/30/25 Rx release hydrocodone 5 mg-acetaminophen 325 1 tablet PO Q8H PRN pain #7 tabs 02/22/25 03/30/25 Rx mg tablet methocarbamol 750 mg tablet 750 mg PO TID PRN muscle spasm #14 02/22/25 03/31/25 Rx tabs folic acid 1 mg tablet 1 mg PO DAILY 03/30/25 03/30/25 History hydrochlorothiazide 25 mg tablet 25 mg PO DAILY 03/30/25 03/31/25 History levothyroxine 50 mcg tablet 50 mcg PO DAILY 03/30/25 03/30/25 History pregabalin 100 mg capsule 100 mg PO TID 03/30/25 03/30/25 History Allergies Allergy/AdvReac Type Severity Reaction Status Date / Time tramadol AdvReac Intermediate Agitated Verified 03/30/25 11:41 Vital Signs Vital Signs Temp Pulse Resp BP Pulse Ox O2 Del Method FiO2 03/31/25 12:00 84 03/31/25 11:24 98.5 F 84 16 123/86 95 03/31/25 10:00 86 03/31/25 08:00 82 03/31/25 07:55 98.2 F 87 18 131/80 94 03/31/25 06:00 81 03/31/25 04:00 98.2 F 91 17 127/80 98 03/31/25 04:00 84 03/31/25 04:00 84 Room Air 03/31/25 02:00 88 03/31/25 01:00 98.4 F 88 18 141/75 H 95 03/31/25 00:00 82 Room Air 03/31/25 00:00 78 03/30/25 22:00 82 03/30/25 21:30 82 Room Air 03/30/25 21:22 54 L 20 95 Room Air 21 03/30/25 21:15 98.2 F 84 16 106/70 96 03/30/25 21:05 80 15 98 Exam 2 Narrative: GENERAL APPEARANCE: well developed well nourished male in no acute distress HEENT: normocephalic, atraumatic, normal conjunctiva and sclera, nares patient NECK: no lymphadenopathy, thyromegaly, or JVD MOUTH: normal lips, teeth, and gums CARDIOVASCULAR: RRR, normal S1 and S2, no rub RESPIRATORY: clear to auscultation bilaterally ABDOMEN: soft, nontender, nondistended, positive bowel sounds present EXTREMITIES: no evidence of cyanosis, clubbing, or edema NEUROLOGICAL: awake and alert but sleepy on my evaluation Results Lab Results 04/01/25 04:44 04/01/25 04:44 Lab results: Most recent lab results ABG pH 7.486 (7.350-7.450) H 03/31/25 15:38 ABG pCO2 42.5 mmHg (35.0-45.0) 03/31/25 15:38 ABG pO2 67.2 mmHg (80.0-100.0) L 03/31/25 15:38 ABG HCO3 31.4 mEq/l (22.0-26.0) H 03/31/25 15:38 ABG O2 Saturation 94.6 % (95.0-100.0) L 03/31/25 15:38 Calcium 8.4 mg/dL (8.4-10.2) 03/31/25 15:02 Phosphorus 3.4 mg/dL (2.5-4.5) 03/30/25 20:47 Magnesium 2.1 mg/dL (1.6-2.3) 03/31/25 05:05
--- NOTE | 2025-03-31 14:48 | PM.IMPN ---
Progress Note: A&P Assessment and Plan (1) Acute hypokalemia: Code(s): E87.6 - Hypokalemia Status: Acute (2) Acute hyponatremia: Code(s): E87.1 - Hypo-osmolality and hyponatremia Status: Acute (3) Hepatic steatosis: Code(s): K76.0 - Fatty (change of) liver, not elsewhere classified Status: Chronic (4) Generalized weakness: Code(s): R53.1 - Weakness Status: Acute (5) Heavy alcohol consumption: Code(s): F10.90 - Alcohol use, unspecified, uncomplicated Status: Chronic (6) Metabolic alkalosis with respiratory acidosis: Code(s): E87.4 - Mixed disorder of acid-base balance Status: Acute (7) Acute anemia: Code(s): D64.9 - Anemia, unspecified Status: Acute (8) Dysmetria: Code(s): R27.8 - Other lack of coordination Status: Acute (9) Abnormal lateral conjugate gaze: Code(s): H51.8 - Other specified disorders of binocular movement Status: Acute (10) Alcohol abuse: Code(s): F10.10 - Alcohol abuse, uncomplicated Status: Acute (11) Ataxia: Code(s): R27.0 - Ataxia, unspecified Status: Acute (12) Tobacco abuse: Code(s): Z72.0 - Tobacco use Status: Chronic Plan Lower extremities weakness and numbness Alcohol neuropathy, stroke, cord compression vs electrolyte imbalance vs Wernicke's Korsakoff syndrome B12/folate wnl Patient is a heavy alcoholic, LAD was 2/7 MRI w/ow brain ordered PT/OT Anemia Hb 9.2 Iron panel and ferritin monitor Hyponatremia Na 125, Continue IVF Monitor Alcohol abuse/withdrawal CIWA, continue Thiamine and folate DVT prophylaxis on Sq lovenox Subjective Date/time seen: 03/31/25 14:48 Interval history: Comfortable at bedside Review of Systems Review of Systems: 12 systems were reviewed with pertinent positives and negatives per HPI. Except as documented in the HPI, all other systems were reviewed and are negative. Exam Narrative: General: alert and comfortable Eyes: EOMI, PERRLA ENNT External ears normal, Neck is supple, no masses, Respiratory systems: Clear to auscultation Cardiovascular S1, S2, normal rhythm, no murmur, rub, or gallop; no thrill or palpable murmurs on palpation. Gastrointestinal: soft, non-tender, and non-distended abdomen with no masses; BS present Skin: no rash, lesions, ulcerations, subcutaneous nodules or induration Musculoskeletal: no abnormality and no tenderness, normal ROM Neurologic: Alert and oriented x3, power about 2/5 glocally Mental Status Exam: normal affect Objective Data Vital Signs Vital Signs: Vital Signs - 24 hr 03/30/25 21:05 03/30/25 21:15 03/30/25 21:22 Temperature 98.2 F Pulse Rate 80 84 54 L Respiratory Rate 15 16 20 Blood Pressure 106/70 Pulse Oximetry 98 96 95 Oxygen Delivery Room Air Fraction of Inspired Oxygen 21 03/30/25 21:30 03/30/25 22:00 03/31/25 00:00 Temperature Pulse Rate 82 82 78 Respiratory Rate Blood Pressure Pulse Oximetry Oxygen Delivery Room Air Fraction of Inspired Oxygen 03/31/25 00:00 03/31/25 01:00 03/31/25 02:00 Temperature 98.4 F Pulse Rate 82 88 88 Respiratory Rate 18 Blood Pressure 141/75 H Pulse Oximetry 95 Oxygen Delivery Room Air Fraction of Inspired Oxygen 03/31/25 04:00 03/31/25 04:00 03/31/25 04:00 Temperature 98.2 F Pulse Rate 84 84 91 Respiratory Rate 17 Blood Pressure 127/80 Pulse Oximetry 98 Oxygen Delivery Room Air Fraction of Inspired Oxygen 03/31/25 06:00 03/31/25 07:55 03/31/25 08:00 Temperature 98.2 F Pulse Rate 81 87 82 Respiratory Rate 18 Blood Pressure 131/80 Pulse Oximetry 94 Oxygen Delivery Fraction of Inspired Oxygen 03/31/25 10:00 03/31/25 11:24 03/31/25 12:00 Temperature 98.5 F Pulse Rate 86 84 84 Respiratory Rate 16 Blood Pressure 123/86 Pulse Oximetry 95 Oxygen Delivery Fraction of Inspired Oxygen Intake/Output Intake/Output: Intake & Output 03/28/25 03/29/25 03/30/25 03/31/25 23:59 23:59 23:59 23:59 Intake Total 1100 3827.5 Output Total 750 Balance 1100 3077.5 Meds/Results Medications: Active Medications Generic Name Dose Route Start Last Admin Trade Name Freq PRN Reason Stop Dose Admin Hydrocodone Bitart/Acetaminophen 1 tab 03/30/25 21:18 03/31/25 02:20 Hydrocodone/Acetaminophen (*Crx) 5-325 Mg Tablet PO 1 tab Q6H PRN Administration Pain Rated 7-10 Folic Acid 1 mg 03/31/25 09:00 03/31/25 08:37 Folic Acid 1 Mg Tablet PO 1 mg DAILY BRYON Administration Thiamine HCl 500 mg in 100 mls @ 200 mls/hr 03/31/25 03:00 03/31/25 04:20 IVPB 04/05/25 02:59 Infused Q8H BRYON Infusion Dextrose 1,000 mls @ 100 mls/hr 03/31/25 07:20 03/31/25 08:32 Dextrose 5% 1,000 Ml IV CONT 100 mls/hr .Q10H BRYON Administration Levothyroxine Sodium 50 mcg 03/31/25 06:30 03/31/25 06:35 Levothyroxine Sodium 50 Mcg Tablet PO 50 mcg DAILY@0630 BRYON Administration Lisinopril 20 mg 03/31/25 09:00 03/31/25 08:36 Lisinopril 20 Mg Tablet PO 20 mg DAILY BRYON Administration Methocarbamol 750 mg 03/31/25 02:49 Methocarbamol 750 Mg Tablet PO TID PRN muscle spasm Ondansetron HCl 4 mg 03/30/25 17:24 Ondansetron Inj 4 Mg/2 Ml Vial IV PUSH Q4H PRN Nausea Pantoprazole Sodium 40 mg 03/31/25 09:00 03/31/25 08:36 Pantoprazole 40 Mg Tablet PO 40 mg QAM BRYON Administration Pregabalin 100 mg 03/31/25 09:00 03/31/25 12:19 Pregabalin (*Crx) 50 Mg Capsule PO 100 mg TID BRYON Administration Radiology Results: ITS Impressions Chest X-Ray 03/30/25 14:28 Impression: 1: Left basilar atelectasis. Head CT 03/30/25 14:51 IMPRESSION: 1. No acute intracranial process. Abdomen/Pelvis CT 03/30/25 16:42 IMPRESSION: 1. No acute intra-abdominal/pelvic process. 2. Mild diffuse bladder wall thickening and small posterior bladder diverticulum suggestive of sequela of chronic outlet obstruction Labs Labs: Laboratory Results - last 24 hr 03/30/25 03/30/25 03/30/25 13:42 15:14 15:45 WBC RBC Hgb Hct MCV MCH MCHC RDW Plt Count MPV % Immature Plt Fraction Puncture Site Right radial ABG pH 7.578 H* ABG pCO2 46.6 H ABG pO2 50.9 L ABG PO2/FiO2 Ratio 2.42 ABG HCO3 42.5 H ABG O2 Saturation 90.5 L ABG O2 Content 13.9 L ABG Base Excess 18.5 A-a Gradient 43.0 Oxyhemoglobin 86.8 L* Total Hemoglobin 11.4 L O2 Delivery Device Room air O2 Liters/Min Not Reportable FiO2 21 Sodium Potassium Chloride Carbon Dioxide Anion Gap BUN Creatinine Estim Creat Clear Calc Estimated GFR Glucose Calcium Phosphorus Magnesium 2.1 Iron TIBC % Saturation Ferritin Total Bilirubin Direct Bilirubin AST ALT Alkaline Phosphatase Lactate Dehydrogenase Total Creatine Kinase Total Protein Albumin Vitamin B12 Folate TSH (Reflex) 2.460 Urine Color Dark yellow Urine Appearance Clear Urine pH 6.0 Ur Specific [place] 1.023 Urine Protein 1+ H Urine Glucose (UA) Negative Urine Ketones 1+ H Ur Blood (Man) Negative Urine Nitrate Negative Urine Bilirubin 1+ H Urine Urobilinogen 2.0 H Leukocyte Esterase Rfl Trace H Urine RBC 3-5 H Urine WBC 0-5 Ur Squamous Epith Cells Occasional Urine Bacteria None seen Urine Casts 0-2 Ur Random Sodium Ur Random Potassium Urine Opiates Screen Positive A Urine Methadone Screen Negative Ur Barbiturates Screen Negative Ur Phencyclidine Scrn Negative Ur Amphetamine Screen Negative U Benzodiazepines Scrn Positive A Urine Cocaine Screen Negative U Cannabinoids Screen Positive A 03/30/25 03/30/25 03/30/25 20:47 20:48 21:45 WBC RBC Hgb Hct MCV MCH MCHC RDW Plt Count MPV % Immature Plt Fraction Puncture Site ABG pH ABG pCO2 ABG pO2 ABG PO2/FiO2 Ratio ABG HCO3 ABG O2 Saturation ABG O2 Content ABG Base Excess A-a Gradient Oxyhemoglobin Total Hemoglobin O2 Delivery Device O2 Liters/Min FiO2 Sodium 119 L* Potassium 2.1 L* Chloride 70 L Carbon Dioxide > 40 H Anion Gap BUN 20 Creatinine 0.64 L Estim Creat Clear Calc 119 Estimated GFR > 60 Glucose 109 Calcium 8.3 L Phosphorus 3.4 Magnesium Iron 258 H TIBC 307 % Saturation 84 H Ferritin 1080.00 H Total Bilirubin 1.0 Direct Bilirubin Cancelled AST ALT Alkaline Phosphatase Lactate Dehydrogenase Total Creatine Kinase Total Protein Albumin Vitamin B12 Folate TSH (Reflex) Urine Color Urine Appearance Urine pH Ur Specific [place] Urine Protein Urine Glucose (UA) Urine Ketones Ur Blood (Man) Urine Nitrate Urine Bilirubin Urine Urobilinogen Leukocyte Esterase Rfl Urine RBC Urine WBC Ur Squamous Epith Cells Urine Bacteria Urine Casts Ur Random Sodium Ur Random Potassium Urine Opiates Screen Urine Methadone Screen Ur Barbiturates Screen Ur Phencyclidine Scrn Ur Amphetamine Screen U Benzodiazepines Scrn Urine Cocaine Screen U Cannabinoids Screen 03/30/25 03/31/25 03/31/25 21:45 00:38 01:52 WBC RBC Hgb Hct MCV MCH MCHC RDW Plt Count MPV % Immature Plt Fraction Puncture Site ABG pH ABG pCO2 ABG pO2 ABG PO2/FiO2 Ratio ABG HCO3 ABG O2 Saturation ABG O2 Content ABG Base Excess A-a Gradient Oxyhemoglobin Total Hemoglobin O2 Delivery Device O2 Liters/Min FiO2 Sodium 123 L Potassium 3.0 L Chloride 80 L Carbon Dioxide 38 H Anion Gap 5 BUN 17 Creatinine 0.54 L Estim Creat Clear Calc 139 Estimated GFR > 60 Glucose 113 H Calcium 7.9 L Phosphorus Magnesium Iron TIBC % Saturation Ferritin Total Bilirubin Direct Bilirubin 0.0 AST 177 H ALT 75 H Alkaline Phosphatase 89 Lactate Dehydrogenase 289 H Total Creatine Kinase Total Protein 6.0 L Albumin 3.5 Vitamin B12 783.0 Folate 6.6 TSH (Reflex) Urine Color Urine Appearance Urine pH Ur Specific [place] Urine Protein Urine Glucose (UA) Urine Ketones Ur Blood (Man) Urine Nitrate Urine Bilirubin Urine Urobilinogen Leukocyte Esterase Rfl Urine RBC Urine WBC Ur Squamous Epith Cells Urine Bacteria Urine Casts Ur Random Sodium 13 Ur Random Potassium 9.1 Urine Opiates Screen Urine Methadone Screen Ur Barbiturates Screen Ur Phencyclidine Scrn Ur Amphetamine Screen U Benzodiazepines Scrn Urine Cocaine Screen U Cannabinoids Screen 03/31/25 03/31/25 05:05 11:02 WBC 2.8 L RBC 3.12 L Hgb 9.6 L Hct 26.9 L MCV 86.2 MCH 30.8 MCHC 35.7 RDW 13.2 Plt Count 114 L MPV 10.2 % Immature Plt Fraction 9.3 Puncture Site ABG pH ABG pCO2 ABG pO2 ABG PO2/FiO2 Ratio ABG HCO3 ABG O2 Saturation ABG O2 Content ABG Base Excess A-a Gradient Oxyhemoglobin Total Hemoglobin O2 Delivery Device O2 Liters/Min FiO2 Sodium 125 L 125 L Potassium 2.9 L 3.5 Chloride 85 L 88 L Carbon Dioxide 37 H 35 H Anion Gap 3 L 2 L BUN 16 13 Creatinine 0.60 L 0.54 L Estim Creat Clear Calc 127 139 Estimated GFR > 60 > 60 Glucose 103 96 Calcium 8.0 L 8.2 L Phosphorus Magnesium 2.1 Iron TIBC % Saturation Ferritin Total Bilirubin 0.9 Direct Bilirubin AST 180 H ALT 78 H Alkaline Phosphatase 86 Lactate Dehydrogenase Total Creatine Kinase 652 H Total Protein 6.0 L Albumin 3.4 L Vitamin B12 Folate TSH (Reflex) Urine Color Urine Appearance Urine pH Ur Specific [place] Urine Protein Urine Glucose (UA) Urine Ketones Ur Blood (Man) Urine Nitrate Urine Bilirubin Urine Urobilinogen Leukocyte Esterase Rfl Urine RBC Urine WBC Ur Squamous Epith Cells Urine Bacteria Urine Casts Ur Random Sodium Ur Random Potassium Urine Opiates Screen Urine Methadone Screen Ur Barbiturates Screen Ur Phencyclidine Scrn Ur Amphetamine Screen U Benzodiazepines Scrn Urine Cocaine Screen U Cannabinoids Screen Quality VTE Prophylaxis VTE prophylaxis: mechanical ordered (SCDs)
[2025-03-31 15:00] LABS: Glucose Point of Care 119 mg/dl (65-105)
[2025-03-31 15:35] LABS: Anion Gap 5 mmol/L (4-12); Blood Urea Nitrogen 11 mg/dL (9-20); Calcium 8.4 mg/dL (8.4-10.2); Carbon Dioxide 33 mmol/L (22-30); Chloride 89 mmol/L (98-107); Estimated CRCL calculation 131 ml/min; Estimated Glomerular Filt Rate > 60; Glucose 107 mg/dL (65-110); Potassium 3.5 mmol/L (3.4-5.0); Sodium 127 mmol/L (137-145)
[2025-03-31 15:46] LABS: Alveolar/Arterial O2 Gradient 31.6 mmHg; Base Excess ABG 7.3 mEq/l (+/-2.0); Fractional Inspired Oxygen 21 %; HCO3 ABG 31.4 mEq/l (22.0-26.0); Oxygen Content ABG 13.3 %vol (16.0-22.0); Oxygen Saturation ABG 94.6 % (95.0-100.0); Oxyhemoglobin 93.5 % THb (90.0-100.0); PCO2 ABG 42.5 mmHg (35.0-45.0); PO2 ABG 67.2 mmHg (80.0-100.0); Total Hemoglobin 10.1 g/dL (12.0-18.0); pH ABG 7.486 (7.350-7.450)
[2025-03-31 15:48] LABS: Device ROOM AIR; Modified Allen's Test Pass; Site Drawn LEFT RADIAL
[2025-03-31 17:44] LABS: Protein, Total 5.9 g/dL (6.1-8.1)
[2025-03-31 17:47] LABS: Iron 220 ug/dL (49-181)
[2025-03-31 18:01] LABS: Percent Iron Saturation 77 % (20-50)
[2025-03-31 19:33] LABS: Anion Gap 0 mmol/L (4-12); Blood Urea Nitrogen 10 mg/dL (9-20); Calcium 8.4 mg/dL (8.4-10.2); Carbon Dioxide 36 mmol/L (22-30); Chloride 88 mmol/L (98-107); Estimated CRCL calculation 127 ml/min; Estimated Glomerular Filt Rate > 60; Glucose 117 mg/dL (65-110); Potassium 3.6 mmol/L (3.4-5.0); Sodium 124 mmol/L (137-145)
[2025-03-31] MEDS: SODIUM CHLORIDE 0.9% IV 1,000 ML 75 ML IV CONT (22:06)
[2025-03-31 23:32] LABS: Anion Gap 3 mmol/L (4-12); Blood Urea Nitrogen 8 mg/dL (9-20); Calcium 8.9 mg/dL (8.4-10.2); Carbon Dioxide 33 mmol/L (22-30); Chloride 90 mmol/L (98-107); Estimated CRCL calculation 125 ml/min; Estimated Glomerular Filt Rate > 60; Glucose 106 mg/dL (65-110); Potassium 3.7 mmol/L (3.4-5.0); Sodium 126 mmol/L (137-145)
[2025-04-01] VITALS (16 sets, daily range): BP systolic 135–159; BP diastolic 82–98; PULSE 82–102; RESP 16–18; TEMP 36.6–37.5; O2SAT 95–98
[2025-04-01 01:19] LABS: Haptoglobin 266 mg/dL (43-212)
[2025-04-01] MEDS: THIAMINE 500 MG/NS 100 ML 500 MG/100 ML BAG 200 MG IVPB ×3 (03:09→20:13)
[2025-04-01] MEDS: methocarbamoL 750 MG TABLET PO (03:23)
[2025-04-01 05:23] LABS: Basophils Percent Auto 0.8 % (0.2-1.2); Eosinophils Absolute Auto 0.1 K/mm3 (0-0.3); Eosinophils Percent Auto 1.5 % (0-4.4); Hematocrit 28.9 % (42.0-52.0); Hemoglobin 9.8 g/dL (14.0-18.0); Immature Granulocyte Absolute 0.03 K/mm3 (0.00-0.031); Immature Granulocyte Percent A 0.8 % (0-0.5); Immature Platelet Fraction Pct 8.3 % (0.9-11.2); Lymphocytes Absolute Auto 1.01 K/mm3 (0.9-3.2); Lymphocytes Percent Auto 25.7 % (18.3-44.2); Mean Corpuscular HGB Conc 33.9 g/dl (32-36); Mean Corpuscular Hemoglobin 30.7 pg (26-34); Mean Corpuscular Volume 90.6 fl (80-100); Mean Platelet Volume 10.8 fl (7.4-10.4); Monocytes Absolute Auto 0.4 K/mm3 (0.1-0.6); Monocytes Percent Auto 9.2 % (2.6-8.5); Neutrophils Absolute Auto 2.4 K/mm3 (1.3-6.7); Platelet Count Result 118 k/mm3 (150-375); Red Blood Count 3.19 M/mm3 (4.6-6.20); Red Cell Distribution Width 13.2 % (11.5-14.5); White Blood Count 3.9 K/mm3 (4.5-10.0)
[2025-04-01 05:35] LABS: Alanine Aminotransferase 86 U/L (6-50); Albumin Level 3.3 g/dL (3.5-5.1); Alkaline Phosphatase 86 U/L (38-126); Anion Gap 3 mmol/L (4-12); Aspartate Amino Transferase 136 U/L (17-59); Bilirubin,Total 0.7 mg/dL (0.2-1.3); Blood Urea Nitrogen 6 mg/dL (9-20); Calcium 8.7 mg/dL (8.4-10.2); Carbon Dioxide 35 mmol/L (22-30); Chloride 92 mmol/L (98-107); Estimated CRCL calculation 123 ml/min; Estimated Glomerular Filt Rate > 60; Glucose 99 mg/dL (65-110); Magnesium 2.1 mg/dL (1.6-2.3); Potassium 3.8 mmol/L (3.4-5.0); Sodium 130 mmol/L (137-145)
[2025-04-01] MEDS: LEVOTHYROXINE SODIUM 50 MCG TABLET PO (05:43)
[2025-04-01] MEDS: ENOXAPARIN 40 MG/0.4 ML SYRINGE SUB-Q (10:27)
[2025-04-01] MEDS: PREGABALIN (*CRX) 50 MG CAPSULE 100 MG PO ×2 (10:27→17:31)
[2025-04-01] MEDS: FOLIC ACID 1 MG TABLET PO (10:28)
[2025-04-01] MEDS: lisinopriL 20 MG TABLET PO (10:28)
[2025-04-01] MEDS: PANTOPRAZOLE 40 MG TABLET PO (10:28)
[2025-04-01] MEDS: SODIUM CHLORIDE 0.9% IV 1,000 ML 75 ML IV CONT (13:11)
--- NOTE | 2025-04-01 13:43 | P.PNNP_ITS ---
Progress Note: A&P Assessment and Plan (1) Hyponatremia: Code(s): E87.1 - Hypo-osmolality and hyponatremia Status: Acute Assessment and Plan: * acute on chronic * baseline sodium runs ~ 132 - 135mmol/L * slow and steady improvement noted since admission * suspect multifactorial etiology: * prerenal factors (nausea with decreased oral intake + diarrhea) * urinary retention * HCTZ use * PPI use * pain medications/narcotics * history of thyroid disease * history of alcohol use * liver disease(?) * goal of therapy is a rate of change in sodium ~ 6 - 8mmol/L in 24 hours (this was achieved) * evaluation to date noted: * urine electrolytes prerenal * TSH and cortisol okay * SPEP/UPEP pending * urine and serum osmolality pending * follow trend of repeat sodium levels (2) Hypokalemia: Code(s): E87.6 - Hypokalemia Status: Acute Assessment and Plan: * possibly due to GI loss and total body store depletion * adequate magnesium noted * aggressive IV and oral replacement as needed * follow trend of K+ levels (3) Generalized weakness: Code(s): R53.1 - Weakness Status: Acute Assessment and Plan: * presentation is quite complex as outlined by registered public health nurse * MRI of brain ordered * Neurology consulted * follow clinical symptoms (4) Anemia: Code(s): D64.9 - Anemia, unspecified Status: Acute Assessment and Plan: * downward trend noted since admission * this is partly explained by aggressive IVF resuscitation * now with noted pancytopenia -- due to liver disease? * adequate iron stores by anemia stodies * follow trend of H/H (5) Alcohol abuse: Code(s): F10.10 - Alcohol abuse, uncomplicated Status: Acute Assessment and Plan: * on thiamine and folate * CIWA (6) Liver disease: Code(s): K76.9 - Liver disease, unspecified Status: Acute Assessment and Plan: * due to history of alcohol use(?) * CT imaging in June 2022 with Diffuse hepatic steatosis * however, repeat CT imaging of A/P including on this admission make not mention of liver issues * continue supportive therapy Not much else to add -- will continue to follow from a distance. L Subjective Date/time seen: 04/01/25 13:43 Interval history: Follow-up for acute on chronic hyponatremia and hypokalemia. Sodium level continues to improve with ongoing therapy/interventions and potassium remains stable; still has issues with muscle twitching/jerking in general; he still appears somewhat sleepy/lethargic at times as well. Exam 2 Narrative: General: WD/WN male in NAD Heart: normal S1 and S2; no rub Lungs: clear to auscultation Abdomen: soft, nontender, nondistended, positive bowel sounds Extremities: no cyanosis or clubbing; no edema Skin: warm and dry Objective Data Vital Signs Vital Signs: Vital Signs Temp Pulse Resp BP Pulse Ox O2 Del Method 04/01/25 12:00 86 04/01/25 11:42 98.8 F 85 16 137/82 96 04/01/25 10:00 86 04/01/25 08:00 87 04/01/25 07:44 98.7 F 83 16 140/90 98 04/01/25 06:00 85 04/01/25 04:00 85 04/01/25 04:00 Room Air 04/01/25 03:50 97.8 F 86 17 135/88 96 04/01/25 02:00 82 04/01/25 00:00 Room Air 04/01/25 00:00 84 04/01/25 00:00 98.2 F 82 17 159/98 H 96 03/31/25 22:00 86 03/31/25 20:00 86 03/31/25 20:00 Room Air 03/31/25 19:53 97.9 F 88 17 126/91 H 95 03/31/25 18:00 88 Intake/Output Intake/Output: Intake & Output 03/29/25 03/30/25 03/31/25 04/01/25 23:59 23:59 23:59 23:59 Intake Total 1100 5387.5 1200 Output Total 2350 1200 Balance 1100 3037.5 0 Meds/Results Medications: Active Medications Generic Name Dose Route Start Last Admin Trade Name Freq PRN Reason Stop Dose Admin Hydrocodone Bitart/Acetaminophen 1 tab 03/30/25 21:18 03/31/25 02:20 Hydrocodone/Acetaminophen (*Crx) 5-325 Mg Tablet PO 1 tab Q6H PRN Administration Pain Rated 7-10 Artificial Tears 1 drop 04/01/25 12:59 Artificial Tears Ophth Soln 15 Ml Bottle EACH EYE QID PRN Dry Eye(s) Enoxaparin Sodium 40 mg 04/01/25 09:00 04/01/25 10:27 Enoxaparin 40 Mg/0.4 Ml Syringe SUB-Q 40 mg DAILY RBYON Administration Folic Acid 1 mg 03/31/25 09:00 04/01/25 10:28 Folic Acid 1 Mg Tablet PO 1 mg DAILY BRYON Administration Thiamine HCl 500 mg in 100 mls @ 200 mls/hr 03/31/25 03:00 04/01/25 13:11 IVPB 04/05/25 02:59 Infused Q8H BRYON Infusion Sodium Chloride 1,000 mls @ 75 mls/hr 03/31/25 20:20 04/01/25 13:11 Normal Saline Iv IV CONT 75 mls/hr .[id number] BRYON Administration Levothyroxine Sodium 50 mcg 03/31/25 06:30 04/01/25 05:43 Levothyroxine Sodium 50 Mcg Tablet PO 50 mcg DAILY@0630 BRYON Administration Lisinopril 20 mg 03/31/25 09:00 04/01/25 10:28 Lisinopril 20 Mg Tablet PO 20 mg DAILY BRYON Administration Methocarbamol 750 mg 03/31/25 02:49 04/01/25 03:23 Methocarbamol 750 Mg Tablet PO 750 mg TID PRN Administration muscle spasm Ondansetron HCl 4 mg 03/30/25 17:24 Ondansetron Inj 4 Mg/2 Ml Vial IV PUSH Q4H PRN Nausea Pantoprazole Sodium 40 mg 03/31/25 09:00 04/01/25 10:28 Pantoprazole 40 Mg Tablet PO 40 mg QAM BRYON Administration Pregabalin 100 mg 03/31/25 09:00 04/01/25 10:27 Pregabalin (*Crx) 50 Mg Capsule PO 100 mg TID BRYON Administration Radiology Results: ITS Impressions Chest X-Ray 03/30/25 14:28 Impression: 1: Left basilar atelectasis. Head CT 03/30/25 14:51 IMPRESSION: 1. No acute intracranial process. Abdomen/Pelvis CT 03/30/25 16:42 IMPRESSION: 1. No acute intra-abdominal/pelvic process. 2. Mild diffuse bladder wall thickening and small posterior bladder diverticulum suggestive of sequela of chronic outlet obstruction Labs Labs: Laboratory Tests 04/01/25 04:44 04/01/25 04:44 Calcium 8.7 Magnesium 2.1 Total Bilirubin 0.7 AST 136 H ALT 86 H Alkaline Phosphatase 86 Total Protein 6.0 L Albumin 3.3 L
--- NOTE | 2025-04-01 16:11 | PM.IMPN ---
Progress Note: A&P Assessment and Plan (1) Acute hypokalemia: Code(s): E87.6 - Hypokalemia Status: Acute (2) Acute hyponatremia: Code(s): E87.1 - Hypo-osmolality and hyponatremia Status: Acute (3) Hepatic steatosis: Code(s): K76.0 - Fatty (change of) liver, not elsewhere classified Status: Chronic (4) Generalized weakness: Code(s): R53.1 - Weakness Status: Acute (5) Heavy alcohol consumption: Code(s): F10.90 - Alcohol use, unspecified, uncomplicated Status: Chronic (6) Metabolic alkalosis with respiratory acidosis: Code(s): E87.4 - Mixed disorder of acid-base balance Status: Acute (7) Acute anemia: Code(s): D64.9 - Anemia, unspecified Status: Acute (8) Dysmetria: Code(s): R27.8 - Other lack of coordination Status: Acute (9) Abnormal lateral conjugate gaze: Code(s): H51.8 - Other specified disorders of binocular movement Status: Acute (10) Alcohol abuse: Code(s): F10.10 - Alcohol abuse, uncomplicated Status: Acute (11) Ataxia: Code(s): R27.0 - Ataxia, unspecified Status: Acute (12) Tobacco abuse: Code(s): Z72.0 - Tobacco use Status: Chronic Plan Lower extremities weakness and numbness Alcohol neuropathy, stroke, cord compression vs electrolyte imbalance vs Wernicke's Korsakoff syndrome B12/folate wnl Patient is a heavy alcoholic, LAD was 3/7 MRI w/ow brain pending PT/OT Neurology consulted Anemia Hb 9.8 Iron panel and ferritin monitor Hyponatremia Na 130, Continue IVF Monitor Alcohol abuse/withdrawal CIWA, continue Thiamine and folate DVT prophylaxis on Sq lovenox Subjective Date/time seen: 04/01/25 16:11 Interval history: COmfortable at bedside MRI pending Review of Systems Review of Systems: 12 systems were reviewed with pertinent positives and negatives per HPI. Except as documented in the HPI, all other systems were reviewed and are negative. Exam Narrative: General: alert and comfortable Eyes: EOMI, PERRLA ENNT External ears normal, Neck is supple, no masses, Respiratory systems: Clear to auscultation Cardiovascular S1, S2, normal rhythm, no murmur, rub, or gallop; no thrill or palpable murmurs on palpation. Gastrointestinal: soft, non-tender, and non-distended abdomen with no masses; BS present Skin: no rash, lesions, ulcerations, subcutaneous nodules or induration Musculoskeletal: no abnormality and no tenderness, normal ROM Neurologic: Alert and oriented x3, power about 2/5 glocally Mental Status Exam: normal affect Objective Data Vital Signs Vital Signs: Vital Signs - 24 hr 03/31/25 18:00 03/31/25 19:53 03/31/25 20:00 Temperature 97.9 F Pulse Rate 88 88 Respiratory Rate 17 Blood Pressure 126/91 H Pulse Oximetry 95 Oxygen Delivery Room Air 03/31/25 20:00 03/31/25 22:00 04/01/25 00:00 Temperature 98.2 F Pulse Rate 86 86 82 Respiratory Rate 17 Blood Pressure 159/98 H Pulse Oximetry 96 Oxygen Delivery 04/01/25 00:00 04/01/25 00:00 04/01/25 02:00 Temperature Pulse Rate 84 82 Respiratory Rate Blood Pressure Pulse Oximetry Oxygen Delivery Room Air 04/01/25 03:50 04/01/25 04:00 04/01/25 04:00 Temperature 97.8 F Pulse Rate 86 85 Respiratory Rate 17 Blood Pressure 135/88 Pulse Oximetry 96 Oxygen Delivery Room Air 04/01/25 06:00 04/01/25 07:44 04/01/25 08:00 Temperature 98.7 F Pulse Rate 85 83 87 Respiratory Rate 16 Blood Pressure 140/90 Pulse Oximetry 98 Oxygen Delivery 04/01/25 10:00 04/01/25 11:42 04/01/25 12:00 Temperature 98.8 F Pulse Rate 86 85 86 Respiratory Rate 16 Blood Pressure 137/82 Pulse Oximetry 96 Oxygen Delivery 04/01/25 14:00 Temperature Pulse Rate 87 Respiratory Rate Blood Pressure Pulse Oximetry Oxygen Delivery Intake/Output Intake/Output: Intake & Output 03/29/25 03/30/25 03/31/25 04/01/25 23:59 23:59 23:59 23:59 Intake Total 1100 5387.5 1200 Output Total 2350 1200 Balance 1100 3037.5 0 Meds/Results Medications: Active Medications Generic Name Dose Route Start Last Admin Trade Name Freq PRN Reason Stop Dose Admin Hydrocodone Bitart/Acetaminophen 1 tab 03/30/25 21:18 03/31/25 02:20 Hydrocodone/Acetaminophen (*Crx) 5-325 Mg Tablet PO 1 tab Q6H PRN Administration Pain Rated 7-10 Artificial Tears 1 drop 04/01/25 12:59 Artificial Tears Ophth Soln 15 Ml Bottle EACH EYE QID PRN Dry Eye(s) Enoxaparin Sodium 40 mg 04/01/25 09:00 04/01/25 10:27 Enoxaparin 40 Mg/0.4 Ml Syringe SUB-Q 40 mg DAILY BRYON Administration Folic Acid 1 mg 03/31/25 09:00 04/01/25 10:28 Folic Acid 1 Mg Tablet PO 1 mg DAILY BRYON Administration Thiamine HCl 500 mg in 100 mls @ 200 mls/hr 03/31/25 03:00 04/01/25 13:11 IVPB 04/05/25 02:59 Infused Q8H BRYON Infusion Sodium Chloride 1,000 mls @ 75 mls/hr 03/31/25 20:20 04/01/25 13:11 Normal Saline Iv IV CONT 75 mls/hr .[id number] BRYON Administration Levothyroxine Sodium 50 mcg 03/31/25 06:30 04/01/25 05:43 Levothyroxine Sodium 50 Mcg Tablet PO 50 mcg DAILY@0630 BRYON Administration Lisinopril 20 mg 03/31/25 09:00 04/01/25 10:28 Lisinopril 20 Mg Tablet PO 20 mg DAILY BRYON Administration Methocarbamol 750 mg 03/31/25 02:49 04/01/25 03:23 Methocarbamol 750 Mg Tablet PO 750 mg TID PRN Administration muscle spasm Ondansetron HCl 4 mg 03/30/25 17:24 Ondansetron Inj 4 Mg/2 Ml Vial IV PUSH Q4H PRN Nausea Pantoprazole Sodium 40 mg 03/31/25 09:00 04/01/25 10:28 Pantoprazole 40 Mg Tablet PO 40 mg QAM BRYON Administration Pregabalin 100 mg 03/31/25 09:00 04/01/25 10:27 Pregabalin (*Crx) 50 Mg Capsule PO 100 mg TID BRYON Administration Radiology Results: ITS Impressions Chest X-Ray 03/30/25 14:28 Impression: 1: Left basilar atelectasis. Head CT 03/30/25 14:51 IMPRESSION: 1. No acute intracranial process. Abdomen/Pelvis CT 03/30/25 16:42 IMPRESSION: 1. No acute intra-abdominal/pelvic process. 2. Mild diffuse bladder wall thickening and small posterior bladder diverticulum suggestive of sequela of chronic outlet obstruction Labs Labs: Laboratory Results - last 24 hr 03/30/25 03/31/25 03/31/25 21:45 15:02 19:13 WBC RBC Hgb Hct MCV MCH MCHC RDW Plt Count MPV Immature Gran % (Auto) Neut % (Auto) Lymph % (Auto) [place] % (Auto) Eos % (Auto) Baso % (Auto) Lymph # (Auto) [place] # (Auto) Eos # (Auto) Baso # (Auto) Abs Immat Gran (auto) Absolute Neuts (auto) Absolute Nucleated RBC Nucleated RBC % % Immature Plt Fraction Haptoglobin 266 H Sodium 124 L Potassium 3.6 Chloride 88 L Carbon Dioxide 36 H Anion Gap 0 L BUN 10 Creatinine 0.60 L Estim Creat Clear Calc 127 Estimated GFR > 60 Glucose 117 H Calcium 8.4 Magnesium Iron 220 H TIBC 285 % Saturation 77 H Ferritin 910.00 H Total Bilirubin AST ALT Alkaline Phosphatase Total Protein 5.9 L Albumin Random Cortisol 03/31/25 04/01/25 23:18 04:44 WBC 3.9 L RBC 3.19 L Hgb 9.8 L Hct 28.9 L MCV 90.6 D MCH 30.7 MCHC 33.9 RDW 13.2 Plt Count 118 L MPV 10.8 H Immature Gran % (Auto) 0.8 H Neut % (Auto) 62.0 Lymph % (Auto) 25.7 [place] % (Auto) 9.2 H Eos % (Auto) 1.5 Baso % (Auto) 0.8 Lymph # (Auto) 1.01 [place] # (Auto) 0.4 Eos # (Auto) 0.1 Baso # (Auto) 0.0 Abs Immat Gran (auto) 0.03 Absolute Neuts (auto) 2.4 Absolute Nucleated RBC 0.000 Nucleated RBC % 0.0 % Immature Plt Fraction 8.3 Haptoglobin Sodium 126 L 130 L Potassium 3.7 3.8 Chloride 90 L 92 L Carbon Dioxide 33 H 35 H Anion Gap 3 L 3 L BUN 8 L 6 L Creatinine 0.61 L 0.62 L Estim Creat Clear Calc 125 123 Estimated GFR > 60 > 60 Glucose 106 99 Calcium 8.9 8.7 Magnesium 2.1 Iron TIBC % Saturation Ferritin Total Bilirubin 0.7 AST 136 H ALT 86 H Alkaline Phosphatase 86 Total Protein 6.0 L Albumin 3.3 L Random Cortisol 13.90 Quality VTE Prophylaxis VTE prophylaxis: mechanical ordered (SCDs)
--- NOTE | 2025-04-01 16:25 | PCOTNOTE ---
Spoke with Hospitalist, Dr. Longoria who verbally confirmed removal of bedrest ordres in agreement for nursing to change, updated nurse Nidhi Reagan.
[2025-04-01 16:53] LABS: Osmolality, Urine 365 mOsm/kg (50-1200)
[2025-04-01 18:19] LABS: Albumin 3.3 g/dL (3.8-4.8); Alpha 1 Globulin 0.4 g/dL (0.2-0.3); Alpha 2 Globulin 0.9 g/dL (0.5-0.9); Beta 1 Globulin 0.4 g/dL (0.4-0.6); Gamma Globulin 0.6 g/dL (0.8-1.7)
[2025-04-01] MEDS: HYDROcodone/acetaminophen (*CRX) 5-325 MG TABLET 1 TAB PO (20:12)
[2025-04-02] VITALS (17 sets, daily range): BP systolic 119–155; BP diastolic 58–98; PULSE 74–117; RESP 18–20; TEMP 36.6–36.9; O2SAT 96–100; BMI 10.0; BMI 28.1
--- NOTE | 2025-04-02 | ECHO_ITS ---
Patient Info Name: Tyree Rodriguez Age: 49 years : 1975 Gender: Male Ht: 69 in Wt: 190 lbs BSA: 2.07 m2 HR: 91 bpm BP: 155 / 98 mmHg Heart Rhythm: Sinus Rhythm Technical Quality: Fair Exam Date: 04/02/2025 12:20 PM Patient Status: I Admit Date: 03/31/2025 Exam Type: CA echo doppler w bubble study Complete two-dimensional, color flow and Doppler transthoracic echocardiogram is performed with agitated saline. Staff Referring Physician: Tammy Longoria Marketing Engineer: Mary Guerrero Attending Provider: Tammy Longoria Contrast/Agitated Saline Contrast/Ag. Saline: Agitated Saline Amount: 20.00 ml Existing IV Access: Yes IV Access Condition: patent with no signs of infiltration Summary 1. Left ventricular chamber dimension is normal. 2. Left ventricular systolic function is normal, estimated at 65-70. 3. The left ventricular diastolic function is normal. 4. E/e' 10 is mildly elevated. 5. No pulmonary hypertension, estimated pulmonary arterial systolic pressure is 21 mmHg. Left Ventricle E/e' 10 is mildly elevated. Left ventricular chamber dimension is normal. Left ventricular systolic function is normal, estimated at 65-70. The left ventricular diastolic function is normal. Right Ventricle Right ventricular chamber dimension is normal. Right ventricular systolic function is normal and with normal TAPSE 2.0 cm. Left Atria Left atrial chamber dimension is normal. Right Atria Right atrial chamber dimension is normal. Atrial Septum Intact interatrial septum visualized by 2D and agitated saline imaging. Agitated saline injection with and without valsalva maneuver opacified right side cardiac chambers without shunt to left side cardiac chambers. Aortic Valve The aortic valve is trileaflet. There is no aortic valve stenosis. There is no aortic valve regurgitation. Pulmonic Valve There is no pulmonic regurgitation. Mitral Valve There is no mitral valve stenosis. There is no mitral valve regurgitation. Tricuspid Valve There is no tricuspid valve regurgitation. No pulmonary hypertension, estimated pulmonary arterial systolic pressure is 21 mmHg. Pericardium/Pleural There is no pericardial effusion. Inferior Vena Cava Normal inferior vena cava with >50% collapse upon inspiration consistent with normal right atrial pressure, 5 mmHg. Aorta The aortic root size at the sinus of Valsalva is normal. Left Ventricular Outflow Tract Name Value Normal LVOT 2D LVOT Diameter 2.0 cm LVOT Doppler LVOT Peak Velocity 81 cm/s LVOT Peak Gradient 3 mmHg LVOT Mean Gradient 1 mmHg LVOT VTI 14 cm LVOT VTI/AV VTI Ratio 0.7 LVOT Stroke Volume 44 ml LVOT CO 4.0 l/min LVOT CI 1.9 l/min/m2 Pulmonic Valve Name Value Normal RVOT Doppler RVOT Peak Velocity 86 cm/s RVOT Peak Gradient 3 mmHg PV Doppler PV Peak Velocity 99 cm/s PV Peak Gradient 4 mmHg Mitral Valve Name Value Normal MV Diastolic Function MV E Peak Velocity 66 cm/s MV A Peak Velocity 82 cm/s MV E/A 0.8 MV Decel Time (PW) 117 ms MV Annular TDI MV E/e' (Septal) 12.3 MV E/e' (Lateral) 9.1 MV E/e' (Average) 10.7 Tricuspid Valve Name Value Normal TV Regurgitation Doppler TR Peak Velocity 202 cm/s TR Peak Gradient 16 mmHg Estimated PAP/RSVP RA Pressure 5 mmHg <=5 PA Systolic Pressure 21 mmHg <36 RV Systolic Pressure 21 mmHg <36 TV Annular TDI TV Lateral Georgina s' Velocity 19.1 cm/s >=9.5 Aorta Name Value Normal Ascending Aorta Ao Root Diameter (MM) 3.5 cm Ao Root Diam Index (MM) 1.7 cm/m2 Aortic Valve Name Value Normal AV Doppler AV Peak Velocity 114 cm/s AV Peak Gradient 5 mmHg AV Mean Gradient 3 mmHg AV VTI 19 cm AV Area (Cont Eq VTI) 2.3 cm2 >=3.0 AV Area (Cont Eq Ricardo) 2.2 cm2 AV DI (Ricardo) 0.72 AV Regurgitation 2D LVOT Area 3.1 cm2 Ventricles Name Value Normal LV Dimensions 2D/MM IVS Diastolic Thickness (2D) 0.9 cm 0.6-1.0 LVID Diastole (2D) 4.9 cm 4.2-5.8 LVIW Diastolic Thickness (2D) 0.9 cm 0.6-1.0 LVID Systole (2D) 3.2 cm 2.5-4.0 LVOT Diameter 2.0 cm LV Mass (2D Cubed) 162.21 g 88.00-224.00 LV Mass Index (2D Cubed) 78 g/m2 49-115 Relative Wall Thickness (2D) 0.38 <=0.42 LV Fractional Shortening/Ejection Fraction 2D/MM LV Fractional Shortening (2D) 36 % 25-43 LV EF (2D Teichholz) 65 % LV Diastolic Volume (4C MOD) 86 ml LV EF (4C MOD) 75 % LV Diastolic Volume (2C MOD) 60 ml LV EF (2C MOD) 64 % LV Diastolic Volume (BP MOD) 74 ml 62-150 LV Diastolic Volume Index (BP MOD) 36 ml/m2 34-74 LV Systolic Volume (BP MOD) 22 ml 21-61 LV Systolic Volume Index (BP MOD) 11 ml/m2 11-31 LV EF (BP MOD) 70 % 52-72 LV Diastolic Length (4C) 8.0 cm LV Systolic Length (4C) 6.7 cm LV Stroke Volume (4C MOD) 65 ml Atria Name Value Normal LA Dimensions LA Dimension (MM) 3.8 cm 3.0-4.0 LA Volume (4C A-L) 54 ml LA Volume (BP A-L) 55 ml RA Dimensions RA Area (4C) 10.7 cm2 <=18.0 Report Signatures
[2025-04-02] MEDS: HYDROcodone/acetaminophen (*CRX) 5-325 MG TABLET 1 TAB PO ×4 (03:56→23:36)
[2025-04-02 04:26] LABS: Basophils Absolute Auto 0.1 K/mm3 (0.0-0.1); Basophils Percent Auto 1.2 % (0.2-1.2); Eosinophils Absolute Auto 0.1 K/mm3 (0-0.3); Eosinophils Percent Auto 1.9 % (0-4.4); Hematocrit 29.1 % (42.0-52.0); Hemoglobin 10.1 g/dL (14.0-18.0); Immature Granulocyte Absolute 0.04 K/mm3 (0.00-0.031); Immature Platelet Fraction Pct 7.4 % (0.9-11.2); Lymphocytes Absolute Auto 1.24 K/mm3 (0.9-3.2); Lymphocytes Percent Auto 29.9 % (18.3-44.2); Mean Corpuscular HGB Conc 34.7 g/dl (32-36); Mean Corpuscular Hemoglobin 31.2 pg (26-34); Mean Corpuscular Volume 89.8 fl (80-100); Mean Platelet Volume 11.2 fl (7.4-10.4); Monocytes Absolute Auto 0.4 K/mm3 (0.1-0.6); Monocytes Percent Auto 9.4 % (2.6-8.5); Neutrophils Absolute Auto 2.4 K/mm3 (1.3-6.7); Neutrophils Percent Auto 56.6 % (45.5-73.1); Platelet Count Result 133 k/mm3 (150-375); Red Blood Count 3.24 M/mm3 (4.6-6.20); Red Cell Distribution Width 13.3 % (11.5-14.5); White Blood Count 4.2 K/mm3 (4.5-10.0)
[2025-04-02 04:43] LABS: Alanine Aminotransferase 70 U/L (6-50); Albumin Level 3.3 g/dL (3.5-5.1); Alkaline Phosphatase 75 U/L (38-126); Anion Gap 6 mmol/L (4-12); Aspartate Amino Transferase 82 U/L (17-59); Bilirubin,Total 0.8 mg/dL (0.2-1.3); Blood Urea Nitrogen 8 mg/dL (9-20); Calcium 8.9 mg/dL (8.4-10.2); Carbon Dioxide 25 mmol/L (22-30); Chloride 95 mmol/L (98-107); Estimated CRCL calculation 131 ml/min; Estimated Glomerular Filt Rate > 60; Glucose 92 mg/dL (65-110); Potassium 4.3 mmol/L (3.4-5.0); Sodium 126 mmol/L (137-145)
[2025-04-02] MEDS: THIAMINE 500 MG/NS 100 ML 500 MG/100 ML BAG 200 MG IVPB ×3 (05:12→17:47)
--- NOTE | 2025-04-02 05:15 | PC.NURSE ---
Patient request to be left alone for several hours-does not want his levothyroxine when scheduled. Will pass on to day shift.
[2025-04-02] MEDS: LEVOTHYROXINE SODIUM 50 MCG TABLET PO (06:14)
[2025-04-02] MEDS: methocarbamoL 750 MG TABLET PO ×2 (06:14→19:56)
[2025-04-02] MEDS: PANTOPRAZOLE 40 MG TABLET PO (08:35)
[2025-04-02] MEDS: PREGABALIN (*CRX) 50 MG CAPSULE 100 MG PO ×3 (08:35→18:45)
[2025-04-02] MEDS: lisinopriL 20 MG TABLET PO (08:35)
[2025-04-02] MEDS: ENOXAPARIN 40 MG/0.4 ML SYRINGE SUB-Q (08:35)
[2025-04-02] MEDS: FOLIC ACID 1 MG TABLET PO (08:36)
[2025-04-02 11:49] LABS: Kappa\\Lambda Light Chains 1.05 (0.26-1.65); Lambda Light Chain 14.7 mg/L (5.7-26.3)
--- NOTE | 2025-04-02 12:31 | P.PNIM_ITS ---
Progress Note: A&P Assessment and Plan (1) Acute hypokalemia: Code(s): E87.6 - Hypokalemia Status: Acute (2) Acute hyponatremia: Code(s): E87.1 - Hypo-osmolality and hyponatremia Status: Acute (3) Hepatic steatosis: Code(s): K76.0 - Fatty (change of) liver, not elsewhere classified Status: Chronic (4) Generalized weakness: Code(s): R53.1 - Weakness Status: Acute (5) Heavy alcohol consumption: Code(s): F10.90 - Alcohol use, unspecified, uncomplicated Status: Chronic (6) Metabolic alkalosis with respiratory acidosis: Code(s): E87.4 - Mixed disorder of acid-base balance Status: Acute (7) Acute anemia: Code(s): D64.9 - Anemia, unspecified Status: Acute (8) Dysmetria: Code(s): R27.8 - Other lack of coordination Status: Acute (9) Abnormal lateral conjugate gaze: Code(s): H51.8 - Other specified disorders of binocular movement Status: Acute (10) Alcohol abuse: Code(s): F10.10 - Alcohol abuse, uncomplicated Status: Acute (11) Ataxia: Code(s): R27.0 - Ataxia, unspecified Status: Acute (12) Tobacco abuse: Code(s): Z72.0 - Tobacco use Status: Chronic Plan Lower extremities weakness and numbness Alcohol neuropathy, stroke, cord compression vs electrolyte imbalance vs Wernicke's Korsakoff syndrome B12/folate wnl Patient is a heavy alcoholic, LAD was 3/7 MRI w/ow brain possible ischemic focus ECHO, MRI total spine and Lumbar puncture ordered PT/OT Awaiting neuro eval Anemia Hb 9.8 Iron panel and ferritin monitor Hyponatremia Na 126, Continue IVF Monitor Alcohol abuse/withdrawal CIWA, continue Thiamine and folate DVT prophylaxis on Sq lovenox Subjective Date/time seen: 04/02/25 12:31 Interval history: Comfortable at bedside still complaining of parethesia and weakness Review of Systems Review of Systems: 12 systems were reviewed with pertinent positives and negatives per HPI. Except as documented in the HPI, all other systems were reviewed and are negative. Exam Narrative: General: alert and comfortable Eyes: EOMI, PERRLA ENNT External ears normal, Neck is supple, no masses, Respiratory systems: Clear to auscultation Cardiovascular S1, S2, normal rhythm, no murmur, rub, or gallop; no thrill or palpable murmurs on palpation. Gastrointestinal: soft, non-tender, and non-distended abdomen with no masses; BS present Skin: no rash, lesions, ulcerations, subcutaneous nodules or induration Musculoskeletal: no abnormality and no tenderness, normal ROM Neurologic: Alert and oriented x3, power about 2/5 glocally Mental Status Exam: normal affect Objective Data Vital Signs Vital Signs: Vital Signs - 24 hr 04/01/25 14:00 04/01/25 16:00 04/01/25 18:00 Temperature 99.5 F Pulse Rate 87 88 99 Respiratory Rate 18 Blood Pressure 139/89 Pulse Oximetry 98 Oxygen Delivery 04/01/25 20:00 04/01/25 20:00 04/01/25 22:00 Temperature 98 F Pulse Rate 101 H 102 H 91 Respiratory Rate 16 Blood Pressure 142/96 H Pulse Oximetry 95 Oxygen Delivery 04/01/25 23:37 04/02/25 00:00 04/02/25 00:00 Temperature 98 F Pulse Rate 87 90 Respiratory Rate 18 Blood Pressure 146/89 H Pulse Oximetry 97 Oxygen Delivery Room Air 04/02/25 02:00 04/02/25 04:00 04/02/25 04:00 Temperature 98.4 F Pulse Rate 90 88 Respiratory Rate 20 Blood Pressure 152/97 H Pulse Oximetry 99 Oxygen Delivery Room Air 04/02/25 04:00 04/02/25 06:00 04/02/25 07:44 Temperature 98.2 F Pulse Rate 88 90 91 Respiratory Rate 18 Blood Pressure 155/98 H Pulse Oximetry 98 Oxygen Delivery 04/02/25 08:00 04/02/25 08:00 04/02/25 09:28 Temperature Pulse Rate 93 Respiratory Rate Blood Pressure Pulse Oximetry Oxygen Delivery Room Air Room Air 04/02/25 09:50 04/02/25 10:00 04/02/25 12:00 Temperature Pulse Rate 92 Respiratory Rate Blood Pressure Pulse Oximetry Oxygen Delivery Room Air Room Air 04/02/25 12:00 Temperature Pulse Rate 101 H Respiratory Rate Blood Pressure Pulse Oximetry Oxygen Delivery Intake/Output Intake/Output: Intake & Output 05/27/25 05/28/25 05/29/25 05/30/25 23:59 23:59 23:59 23:59 Intake Total 1100 5387.5 2536.3 698.5 Output Total 2350 1950 700 Balance 1100 3037.5 586.3 -1.5 Meds/Results Medications: Active Medications Generic Name Dose Route Start Last Admin Trade Name Freq PRN Reason Stop Dose Admin Hydrocodone Bitart/Acetaminophen 1 tab 03/30/25 21:18 04/02/25 11:04 Hydrocodone/Acetaminophen (*Crx) 5-325 Mg Tablet PO 1 tab Q6H PRN Administration Pain Rated 7-10 Artificial Tears 1 drop 04/01/25 12:59 Artificial Tears Ophth Soln 15 Ml Bottle EACH EYE QID PRN Dry Eye(s) Enoxaparin Sodium 40 mg 04/01/25 09:00 04/02/25 08:35 Enoxaparin 40 Mg/0.4 Ml Syringe SUB-Q 40 mg DAILY BRYON Administration Folic Acid 1 mg 03/31/25 09:00 04/02/25 08:36 Folic Acid 1 Mg Tablet PO 1 mg DAILY BRYON Administration Thiamine HCl 500 mg in 100 mls @ 200 mls/hr 03/31/25 03:00 04/02/25 10:58 IVPB 04/05/25 02:59 200 mls/hr Q8H BRYON Administration Levothyroxine Sodium 50 mcg 03/31/25 06:30 04/02/25 06:14 Levothyroxine Sodium 50 Mcg Tablet PO 50 mcg DAILY@0630 BRYON Administration Lisinopril 20 mg 03/31/25 09:00 04/02/25 08:35 Lisinopril 20 Mg Tablet PO 20 mg DAILY BRYON Administration Methocarbamol 750 mg 03/31/25 02:49 04/02/25 06:14 Methocarbamol 750 Mg Tablet PO 750 mg TID PRN Administration muscle spasm Ondansetron HCl 4 mg 03/30/25 17:24 Ondansetron Inj 4 Mg/2 Ml Vial IV PUSH Q4H PRN Nausea Pantoprazole Sodium 40 mg 03/31/25 09:00 04/02/25 08:35 Pantoprazole 40 Mg Tablet PO 40 mg QAM BROYN Administration Perflutren Lipid Microsphere 0 ml 04/02/25 07:38 Perflutren Lipid Microspheres 1.5 Ml Vial Diluted To 10 Ml Total Volume IV PUSH 04/05/25 07:38 ONCE PRN adequate visualization Protocol Pregabalin 100 mg 03/31/25 09:00 04/02/25 08:35 Pregabalin (*Crx) 50 Mg Capsule PO 100 mg TID BRYON Administration Radiology Results: ITS Impressions Chest X-Ray 03/30/25 14:28 Impression: 1: Left basilar atelectasis. Head CT 03/30/25 14:51 IMPRESSION: 1. No acute intracranial process. Abdomen/Pelvis CT 03/30/25 16:42 IMPRESSION: 1. No acute intra-abdominal/pelvic process. 2. Mild diffuse bladder wall thickening and small posterior bladder diverticulum suggestive of sequela of chronic outlet obstruction Brain MRI 04/01/25 16:35 IMPRESSION: 1. Small focus in the right frontal lobe white matter most likely ischemic. 2. No evidence of acute intracranial process. 3. No abnormal enhancement. Labs Labs: Laboratory Results - last 24 hr 03/30/25 03/31/25 04/01/25 21:45 01:51 04:44 WBC RBC Hgb Hct MCV MCH MCHC RDW Plt Count MPV Immature Gran % (Auto) Neut % (Auto) Lymph % (Auto) [place] % (Auto) Eos % (Auto) Baso % (Auto) Lymph # (Auto) [place] # (Auto) Eos # (Auto) Baso # (Auto) Abs Immat Gran (auto) Absolute Neuts (auto) Absolute Nucleated RBC Nucleated RBC % % Immature Plt Fraction Sodium Potassium Chloride Carbon Dioxide Anion Gap BUN Creatinine Estim Creat Clear Calc Estimated GFR Glucose Calcium Magnesium Total Bilirubin AST ALT Alkaline Phosphatase Total Protein Albumin 3.3 L Hpfxs-5-Uhftafxji 0.4 H Wgiyp-6-Tispizqjs 0.9 Jvga-6-Umrprehl 0.4 Ebvk-6-Msqbgivg 0.3 Gamma Globulins 0.6 L PEP Interpretation See note Urine Osmolality [address] [place]/Lambda Ratio 1.[address] [place] Light Chains 15.4 Free [place] Light Chain 14.7 04/02/25 03:49 WBC 4.2 L RBC 3.24 L Hgb 10.1 L Hct 29.1 L MCV 89.8 MCH 31.2 MCHC 34.7 RDW 13.3 Plt Count 133 L MPV 11.2 H Immature Gran % (Auto) 1.0 H Neut % (Auto) 56.6 Lymph % (Auto) 29.9 [place] % (Auto) 9.4 H Eos % (Auto) 1.9 Baso % (Auto) 1.2 Lymph # (Auto) 1.24 [place] # (Auto) 0.4 Eos # (Auto) 0.1 Baso # (Auto) 0.1 Abs Immat Gran (auto) 0.04 H Absolute Neuts (auto) 2.4 Absolute Nucleated RBC 0.000 Nucleated RBC % 0.0 % Immature Plt Fraction 7.4 Sodium 126 L Potassium 4.3 Chloride 95 L Carbon Dioxide 25 Anion Gap 6 BUN 8 L Creatinine 0.58 L Estim Creat Clear Calc 131 Estimated GFR > 60 Glucose 92 Calcium 8.9 Magnesium 2.0 Total Bilirubin 0.8 AST 82 H ALT 70 H Alkaline Phosphatase 75 Total Protein 6.0 L Albumin 3.3 L Pljmm-8-Wmienxmgk Fcekm-8-Yktrojhfp Dscp-0-Ixrytzjv Qbco-2-Bvytmhlr Gamma Globulins PEP Interpretation Urine Osmolality [place]/Lambda Ratio Free [place] Light Chains Free Lambda Light Chain Quality VTE Prophylaxis VTE prophylaxis: mechanical ordered (SCDs)
--- NOTE | 2025-04-02 13:45 | PC.NURSE ---
Dr Longoria made aware that the PT may not be able to get MRI and Lumbar puncture done until saturday.
--- NOTE | 2025-04-02 14:42 | PC.NURSE ---
Availability for lumbar puncture, notified Dr Longoria
--- NOTE | 2025-04-02 15:31 | CY_PTH ---
PATIENT: Tyree Rodriguez LOC: [id number] U#:[id number] AGE/SX: 49/M ROOM: 255 RE03/31/[address]: Tammy Longoria MD : 1975 BED: 01 DIS: 04/21/2025 SPEC #: [id number] RECD: 04/05/25 07:48 STATUS: SOUMihai REQ #: [id number] JONATHAN: 04/02/25 15:[address]: Tammy Longoria DEPT: [facility] Cytology RECD BY: Candace Mcghee ENTERED: 04/05/25 07:48 SP TYPE: Cytology OT DR: MD Jonathan Guzman MD Tissues: A - CSF Procedures: Cytopathology Cytospin
[2025-04-02 15:57] LABS: Glucose CSF 47 mg/dL (40-70); Total Protein CSF 195 mg/dL (12-60)
[2025-04-02 18:59] LABS: Appearance CSF Clear (Clear); CSF source CSF; Color CSF Colorless (Colorless); Lymphocytes CSF 18 % (40-80); Macrophages CSF 1; Monocytes CSF 7 % (15-45); Neutrophils CSF 2 % (0-6); Nucleated Cell CSF 4 /uL (0-5); Red Blood Cell CSF 0 (0-2)
[2025-04-03] VITALS (14 sets, daily range): BP systolic 121–163; BP diastolic 78–99; PULSE 73–119; RESP 18; TEMP 36.4–37.2; O2SAT 96–100
[2025-04-03] MEDS: THIAMINE 500 MG/NS 100 ML 500 MG/100 ML BAG 200 MG IVPB ×3 (03:49→18:44)
[2025-04-03] MEDS: LEVOTHYROXINE SODIUM 50 MCG TABLET PO (06:23)
[2025-04-03] MEDS: HYDROcodone/acetaminophen (*CRX) 5-325 MG TABLET 1 TAB PO ×3 (06:23→18:47)
[2025-04-03 07:04] LABS: Vitamin B1 >1200 nmol/L (8-30)
[2025-04-03 08:41] LABS: Basophils Absolute Auto 0.1 K/mm3 (0.0-0.1); Basophils Percent Auto 0.9 % (0.2-1.2); Eosinophils Absolute Auto 0.1 K/mm3 (0-0.3); Eosinophils Percent Auto 1.9 % (0-4.4); Hematocrit 28.5 % (42.0-52.0); Hemoglobin 9.9 g/dL (14.0-18.0); Immature Granulocyte Absolute 0.07 K/mm3 (0.00-0.031); Immature Granulocyte Percent A 1.2 % (0-0.5); Lymphocytes Absolute Auto 1.22 K/mm3 (0.9-3.2); Lymphocytes Percent Auto 20.8 % (18.3-44.2); Mean Corpuscular HGB Conc 34.7 g/dl (32-36); Mean Corpuscular Hemoglobin 30.7 pg (26-34); Mean Corpuscular Volume 88.5 fl (80-100); Mean Platelet Volume 10.6 fl (7.4-10.4); Monocytes Absolute Auto 0.4 K/mm3 (0.1-0.6); Monocytes Percent Auto 6.8 % (2.6-8.5); Neutrophils Percent Auto 68.4 % (45.5-73.1); Platelet Count Result 143 k/mm3 (150-375); Red Blood Count 3.22 M/mm3 (4.6-6.20); Red Cell Distribution Width 13.4 % (11.5-14.5); White Blood Count 5.9 K/mm3 (4.5-10.0)
[2025-04-03 08:51] LABS: Alanine Aminotransferase 58 U/L (6-50); Albumin Level 3.5 g/dL (3.5-5.1); Alkaline Phosphatase 88 U/L (38-126); Anion Gap 8 mmol/L (4-12); Aspartate Amino Transferase 59 U/L (17-59); Bilirubin,Total 0.8 mg/dL (0.2-1.3); Blood Urea Nitrogen 7 mg/dL (9-20); Calcium 9.2 mg/dL (8.4-10.2); Carbon Dioxide 23 mmol/L (22-30); Chloride 98 mmol/L (98-107); Estimated CRCL calculation 129 ml/min; Estimated Glomerular Filt Rate > 60; Glucose 102 mg/dL (65-110); Magnesium 1.9 mg/dL (1.6-2.3); Potassium 4.2 mmol/L (3.4-5.0); Sodium 129 mmol/L (137-145)
[2025-04-03] MEDS: PANTOPRAZOLE 40 MG TABLET PO (09:11)
[2025-04-03] MEDS: PREGABALIN (*CRX) 50 MG CAPSULE 100 MG PO ×3 (09:11→17:23)
[2025-04-03] MEDS: lisinopriL 20 MG TABLET PO (09:11)
[2025-04-03] MEDS: ENOXAPARIN 40 MG/0.4 ML SYRINGE SUB-Q (09:12)
[2025-04-03] MEDS: FOLIC ACID 1 MG TABLET PO (09:12)
[2025-04-03] MEDS: methocarbamoL 750 MG TABLET PO ×2 (09:13→19:49)
--- NOTE | 2025-04-03 09:51 | PM.EVENT ---
Event Note Event Note Event Note: labs stable. sodium is in the chronic range. Renal signs off. please reach out if issues arise.
--- NOTE | 2025-04-03 15:39 | P.PNIM_ITS ---
Progress Note: A&P Assessment and Plan (1) Acute hypokalemia: Code(s): E87.6 - Hypokalemia Status: Acute (2) Acute hyponatremia: Code(s): E87.1 - Hypo-osmolality and hyponatremia Status: Acute (3) Hepatic steatosis: Code(s): K76.0 - Fatty (change of) liver, not elsewhere classified Status: Chronic (4) Generalized weakness: Code(s): R53.1 - Weakness Status: Acute (5) Heavy alcohol consumption: Code(s): F10.90 - Alcohol use, unspecified, uncomplicated Status: Chronic (6) Metabolic alkalosis with respiratory acidosis: Code(s): E87.4 - Mixed disorder of acid-base balance Status: Acute (7) Acute anemia: Code(s): D64.9 - Anemia, unspecified Status: Acute (8) Dysmetria: Code(s): R27.8 - Other lack of coordination Status: Acute (9) Abnormal lateral conjugate gaze: Code(s): H51.8 - Other specified disorders of binocular movement Status: Acute (10) Alcohol abuse: Code(s): F10.10 - Alcohol abuse, uncomplicated Status: Acute (11) Ataxia: Code(s): R27.0 - Ataxia, unspecified Status: Acute (12) Tobacco abuse: Code(s): Z72.0 - Tobacco use Status: Chronic Plan Lower extremities weakness and numbness Alcohol neuropathy, stroke, cord compression vs electrolyte imbalance vs Wernicke's Korsakoff syndrome B12/folate wnl Patient is a heavy alcoholic, LAD was 3/7 MRI w/ow brain possible ischemic focus ECHO showed normal LV function , MRI total spine pending CSF showed albuminocytologic dissociation, f/u cultures and PCRs PT/OT Awaiting neuro eval Anemia Hb 9.8 Iron panel and ferritin monitor Hyponatremia Na 126, Nephrology evaluated and noted that patient has chronci hyponatremia on currently within his baseline. monitor Alcohol abuse/withdrawal CIWA, continue Thiamine and folate DVT prophylaxis on Sq lovenox Subjective Date/time seen: 04/03/25 15:39 Interval history: Comfortable at bedside noted only mild improvement CSF analysis showed albuminocytologic dissociation Review of Systems Review of Systems: 12 systems were reviewed with pertinent positives and negatives per HPI. Except as documented in the HPI, all other systems were reviewed and are negative. Exam Narrative: General: alert and comfortable Eyes: EOMI, PERRLA ENNT External ears normal, Neck is supple, no masses, Respiratory systems: Clear to auscultation Cardiovascular S1, S2, normal rhythm, no murmur, rub, or gallop; no thrill or palpable murmurs on palpation. Gastrointestinal: soft, non-tender, and non-distended abdomen with no masses; BS present Skin: no rash, lesions, ulcerations, subcutaneous nodules or induration Musculoskeletal: no abnormality and no tenderness, normal ROM Neurologic: Alert and oriented x3, power about 2/5 glocally Mental Status Exam: normal affect Objective Data Vital Signs Vital Signs: Vital Signs - 24 hr 04/02/25 15:52 04/02/25 16:00 04/02/25 16:00 Temperature Pulse Rate 117 H 101 H Respiratory Rate 19 Blood Pressure 136/95 H Pulse Oximetry 96 Oxygen Delivery Room Air 04/02/25 16:00 04/02/25 18:00 04/02/25 20:00 Temperature 98.3 F 97.9 F Pulse Rate 95 103 H 111 H Respiratory Rate 18 18 Blood Pressure 127/89 128/87 Pulse Oximetry 98 97 Oxygen Delivery 04/02/25 20:00 04/02/25 22:00 04/02/25 22:09 Temperature Pulse Rate 103 H 100 Respiratory Rate Blood Pressure Pulse Oximetry 97 Oxygen Delivery Room Air 04/02/25 23:42 04/02/25 23:53 04/03/25 00:00 Temperature 97.9 F Pulse Rate 102 H 93 Respiratory Rate 20 Blood Pressure 151/91 H Pulse Oximetry 98 Oxygen Delivery Room Air 04/03/25 02:00 04/03/25 04:00 04/03/25 04:00 Temperature 97.5 F L Pulse Rate 97 96 Respiratory Rate 18 Blood Pressure 163/99 H Pulse Oximetry 97 Oxygen Delivery Room Air 04/03/25 04:00 04/03/25 06:00 04/03/25 07:33 Temperature 98.3 F Pulse Rate 98 99 96 Respiratory Rate 18 Blood Pressure 160/90 H Pulse Oximetry 97 Oxygen Delivery 04/03/25 08:00 04/03/25 08:00 04/03/25 10:00 Temperature Pulse Rate 97 110 H Respiratory Rate Blood Pressure Pulse Oximetry Oxygen Delivery Room Air 04/03/25 12:00 04/03/25 12:00 04/03/25 12:00 Temperature 98.6 F Pulse Rate 109 H 90 Respiratory Rate 18 Blood Pressure 145/78 H Pulse Oximetry 97 Oxygen Delivery Room Air 04/03/25 14:00 Temperature Pulse Rate 100 Respiratory Rate Blood Pressure Pulse Oximetry Oxygen Delivery Intake/Output Intake/Output: Intake & Output 03/31/25 04/01/25 04/02/25 04/03/25 23:59 23:59 23:59 23:59 Intake Total 5387.5 2536.3 1378.5 600 Output Total 2350 1950 1650 2250 Balance 3037.5 586.3 -271.5 -1650 Meds/Results Medications: Active Medications Generic Name Dose Route Start Last Admin Trade Name Freq PRN Reason Stop Dose Admin Hydrocodone Bitart/Acetaminophen 1 tab 03/30/25 21:18 04/03/25 12:50 Hydrocodone/Acetaminophen (*Crx) 5-325 Mg Tablet PO 1 tab Q6H PRN Administration Pain Rated 7-10 Artificial Tears 1 drop 04/01/25 12:59 Artificial Tears Ophth Soln 15 Ml Bottle EACH EYE QID PRN Dry Eye(s) Bisacodyl 5 mg 04/04/25 09:00 Bisacodyl 5 Mg Tablet Ec PO QAM BRYON Enoxaparin Sodium 40 mg 04/01/25 09:00 04/03/25 09:12 Enoxaparin 40 Mg/0.4 Ml Syringe SUB-Q 40 mg DAILY BRYON Administration Folic Acid 1 mg 03/31/25 09:00 04/03/25 09:12 Folic Acid 1 Mg Tablet PO 1 mg DAILY BRYON Administration Thiamine HCl 500 mg in 100 mls @ 200 mls/hr 03/31/25 03:00 04/03/25 10:54 IVPB 04/05/25 02:59 200 mls/hr Q8H BRYON Administration Levothyroxine Sodium 50 mcg 03/31/25 06:30 04/03/25 06:23 Levothyroxine Sodium 50 Mcg Tablet PO 50 mcg DAILY@0630 BRYON Administration Lisinopril 20 mg 03/31/25 09:00 04/03/25 09:11 Lisinopril 20 Mg Tablet PO 20 mg DAILY BRYON Administration Methocarbamol 750 mg 03/31/25 02:49 04/03/25 09:13 Methocarbamol 750 Mg Tablet PO 750 mg TID PRN Administration muscle spasm Ondansetron HCl 4 mg 03/30/25 17:24 Ondansetron Inj 4 Mg/2 Ml Vial IV PUSH Q4H PRN Nausea Pantoprazole Sodium 40 mg 03/31/25 09:00 04/03/25 09:11 Pantoprazole 40 Mg Tablet PO 40 mg QAM BRYON Administration Perflutren Lipid Microsphere 0 ml 04/02/25 07:38 Perflutren Lipid Microspheres 1.5 Ml Vial Diluted To 10 Ml Total Volume IV PUSH 04/05/25 07:38 ONCE PRN adequate visualization Protocol Polyethylene Glycol 17 gm 04/03/25 11:59 Polyethylene Glycol 3350 17 Gm Powd.Pack PO DAILY PRN Constipation Pregabalin 100 mg 03/31/25 09:00 04/03/25 13:53 Pregabalin (*Crx) 50 Mg Capsule PO 100 mg TID BRYON Administration Radiology Results: ITS Impressions Chest X-Ray 03/30/25 14:28 Impression: 1: Left basilar atelectasis. Head CT 03/30/25 14:51 IMPRESSION: 1. No acute intracranial process. Abdomen/Pelvis CT 03/30/25 16:42 IMPRESSION: 1. No acute intra-abdominal/pelvic process. 2. Mild diffuse bladder wall thickening and small posterior bladder diverticulum suggestive of sequela of chronic outlet obstruction Brain MRI 04/01/25 16:35 IMPRESSION: 1. Small focus in the right frontal lobe white matter most likely ischemic. 2. No evidence of acute intracranial process. 3. No abnormal enhancement. Lumbar Puncture Fluoroscopy 04/02/25 15:46 IMPRESSION: 1. Successful fluoro-guided lumbar puncture with elevated opening pressure of 29 cm water. Labs Labs: Laboratory Results - last 24 hr 03/31/25 04/02/25 04/02/25 05:05 15:29 15:30 WBC RBC Hgb Hct MCV MCH MCHC RDW Plt Count MPV Immature Gran % (Auto) Neut % (Auto) Lymph % (Auto) [place] % (Auto) Eos % (Auto) Baso % (Auto) Lymph # (Auto) [place] # (Auto) Eos # (Auto) Baso # (Auto) Abs Immat Gran (auto) Absolute Neuts (auto) Absolute Nucleated RBC Nucleated RBC % Sodium Potassium Chloride Carbon Dioxide Anion Gap BUN Creatinine Estim Creat Clear Calc Estimated GFR Glucose Calcium Magnesium Total Bilirubin AST ALT Alkaline Phosphatase Total Protein Albumin Vitamin B1 >1200 H CSF Source Csf CSF Appearance Clear CSF Color Colorless CSF RBC 0 CSF Tot Nucleated Cells 4 CSF Neutrophils 2 CSF Lymphocytes 18 L CSF Monocytes 7 L CSF Macrophages 1 CSF Glucose 47 CSF Total Protein 195 H 04/03/25 08:35 WBC 5.9 RBC 3.22 L Hgb 9.9 L Hct 28.5 L MCV 88.5 MCH 30.7 MCHC 34.7 RDW 13.4 Plt Count 143 L MPV 10.6 H Immature Gran % (Auto) 1.2 H Neut % (Auto) 68.4 Lymph % (Auto) 20.8 [place] % (Auto) 6.8 Eos % (Auto) 1.9 Baso % (Auto) 0.9 Lymph # (Auto) 1.22 [place] # (Auto) 0.4 Eos # (Auto) 0.1 Baso # (Auto) 0.1 Abs Immat Gran (auto) 0.07 H Absolute Neuts (auto) 4.0 Absolute Nucleated RBC 0.000 Nucleated RBC % 0.0 Sodium 129 L Potassium 4.2 Chloride 98 Carbon Dioxide 23 Anion Gap 8 BUN 7 L Creatinine 0.67 L Estim Creat Clear Calc 129 Estimated GFR > 60 Glucose 102 Calcium 9.2 Magnesium 1.9 Total Bilirubin 0.8 AST 59 ALT 58 H Alkaline Phosphatase 88 Total Protein 6.0 L Albumin 3.5 Vitamin B1 CSF Source CSF Appearance CSF Color CSF RBC CSF Tot Nucleated Cells CSF Neutrophils CSF Lymphocytes CSF Monocytes CSF Macrophages CSF Glucose CSF Total Protein Quality VTE Prophylaxis VTE prophylaxis: mechanical ordered (SCDs)
[2025-04-04] VITALS (14 sets, daily range): BP systolic 127–154; BP diastolic 66–98; PULSE 50–122; RESP 12–102; TEMP 36.4–37.2; O2SAT 18–99
[2025-04-04] MEDS: HYDROcodone/acetaminophen (*CRX) 5-325 MG TABLET 1 TAB PO ×2 (02:38→17:57)
[2025-04-04] MEDS: THIAMINE 500 MG/NS 100 ML 500 MG/100 ML BAG 200 MG IVPB ×3 (02:38→17:55)
[2025-04-04] MEDS: LEVOTHYROXINE SODIUM 50 MCG TABLET PO (06:41)
[2025-04-04 06:54] LABS: Basophils Absolute Auto 0.1 K/mm3 (0.0-0.1); Basophils Percent Auto 0.7 % (0.2-1.2); Eosinophils Absolute Auto 0.1 K/mm3 (0-0.3); Eosinophils Percent Auto 1.3 % (0-4.4); Hematocrit 29.6 % (42.0-52.0); Hemoglobin 10.2 g/dL (14.0-18.0); Immature Granulocyte Absolute 0.13 K/mm3 (0.00-0.031); Immature Granulocyte Percent A 1.9 % (0-0.5); Lymphocytes Absolute Auto 1.39 K/mm3 (0.9-3.2); Lymphocytes Percent Auto 20.6 % (18.3-44.2); Mean Corpuscular HGB Conc 34.5 g/dl (32-36); Mean Corpuscular Hemoglobin 30.6 pg (26-34); Mean Corpuscular Volume 88.9 fl (80-100); Mean Platelet Volume 10.6 fl (7.4-10.4); Monocytes Absolute Auto 0.5 K/mm3 (0.1-0.6); Monocytes Percent Auto 7.3 % (2.6-8.5); Neutrophils Absolute Auto 4.6 K/mm3 (1.3-6.7); Neutrophils Percent Auto 68.2 % (45.5-73.1); Platelet Count Result 173 k/mm3 (150-375); Red Blood Count 3.33 M/mm3 (4.6-6.20); Red Cell Distribution Width 14.1 % (11.5-14.5); White Blood Count 6.8 K/mm3 (4.5-10.0)
[2025-04-04 07:02] LABS: Alanine Aminotransferase 52 U/L (6-50); Alkaline Phosphatase 93 U/L (38-126); Anion Gap 12 mmol/L (4-12); Aspartate Amino Transferase 52 U/L (17-59); Bilirubin,Total 1.1 mg/dL (0.2-1.3); Blood Urea Nitrogen 7 mg/dL (9-20); Calcium 9.6 mg/dL (8.4-10.2); Carbon Dioxide 21 mmol/L (22-30); Chloride 100 mmol/L (98-107); Estimated CRCL calculation 107 ml/min; Estimated Glomerular Filt Rate > 60; Glucose 94 mg/dL (65-110); Potassium 4.3 mmol/L (3.4-5.0); Sodium 133 mmol/L (137-145)
[2025-04-04] MEDS: PANTOPRAZOLE 40 MG TABLET PO (09:55)
[2025-04-04] MEDS: PREGABALIN (*CRX) 50 MG CAPSULE 100 MG PO ×3 (09:55→17:55)
[2025-04-04] MEDS: lisinopriL 20 MG TABLET PO (09:55)
[2025-04-04] MEDS: ENOXAPARIN 40 MG/0.4 ML SYRINGE SUB-Q (09:55)
[2025-04-04] MEDS: FOLIC ACID 1 MG TABLET PO (09:55)
[2025-04-04] MEDS: BISACODYL 5 MG TABLET EC PO (09:57)
--- NOTE | 2025-04-04 10:08 | P.PNIM_ITS ---
Progress Note: A&P Assessment and Plan (1) Acute hypokalemia: Code(s): E87.6 - Hypokalemia Status: Acute (2) Acute hyponatremia: Code(s): E87.1 - Hypo-osmolality and hyponatremia Status: Acute (3) Hepatic steatosis: Code(s): K76.0 - Fatty (change of) liver, not elsewhere classified Status: Chronic (4) Generalized weakness: Code(s): R53.1 - Weakness Status: Acute (5) Heavy alcohol consumption: Code(s): F10.90 - Alcohol use, unspecified, uncomplicated Status: Chronic (6) Metabolic alkalosis with respiratory acidosis: Code(s): E87.4 - Mixed disorder of acid-base balance Status: Acute (7) Acute anemia: Code(s): D64.9 - Anemia, unspecified Status: Acute (8) Dysmetria: Code(s): R27.8 - Other lack of coordination Status: Acute (9) Abnormal lateral conjugate gaze: Code(s): H51.8 - Other specified disorders of binocular movement Status: Acute (10) Alcohol abuse: Code(s): F10.10 - Alcohol abuse, uncomplicated Status: Acute (11) Ataxia: Code(s): R27.0 - Ataxia, unspecified Status: Acute (12) Tobacco abuse: Code(s): Z72.0 - Tobacco use Status: Chronic Plan Lower extremities weakness and numbness Alcohol neuropathy, stroke, cord compression vs electrolyte imbalance vs Wernicke's Korsakoff syndrome B12/folate wnl Patient is a heavy alcoholic, LAD was 3/7 MRI w/ow brain possible ischemic focus ECHO showed normal LV function , MRI total spine pending CSF showed albuminocytologic dissociation, f/u cultures and PCRs PT/OT Awaiting neuro eval Anemia Hb 9.8 Iron panel and ferritin monitor Hyponatremia, reoslved Na 133, Nephrology evaluated and noted that patient has chronci hyponatremia on currently within his baseline. monitor Alcohol abuse/withdrawal CIWA, continue Thiamine and folate DVT prophylaxis on Sq lovenox Subjective Date/time seen: 04/04/25 10:08 Interval history: Comfortable at bedside noted only mild improvement CSF analysis showed albuminocytologic dissociation awaiting Neurology eval tomorrow Review of Systems Review of Systems: 12 systems were reviewed with pertinent positives and negatives per HPI. Except as documented in the HPI, all other systems were reviewed and are negative. Exam Narrative: General: alert and comfortable Eyes: EOMI, PERRLA ENNT External ears normal, Neck is supple, no masses, Respiratory systems: Clear to auscultation Cardiovascular S1, S2, normal rhythm, no murmur, rub, or gallop; no thrill or palpable murmurs on palpation. Gastrointestinal: soft, non-tender, and non-distended abdomen with no masses; BS present Skin: no rash, lesions, ulcerations, subcutaneous nodules or induration Musculoskeletal: no abnormality and no tenderness, normal ROM Neurologic: Alert and oriented x3, power about 2/5 glocally Mental Status Exam: normal affect Objective Data Vital Signs Vital Signs: Vital Signs - 24 hr 04/03/25 12:00 04/03/25 12:00 04/03/25 12:00 Temperature 98.6 F Pulse Rate 109 H 90 Respiratory Rate 18 Blood Pressure 145/78 H Pulse Oximetry 97 Oxygen Delivery Room Air 04/03/25 14:00 04/03/25 16:00 04/03/25 16:00 Temperature 98.9 F Pulse Rate 100 73 Respiratory Rate 18 Blood Pressure 121/83 Pulse Oximetry 96 Oxygen Delivery Room Air 04/03/25 16:00 04/03/25 18:00 04/03/25 20:00 Temperature 97.9 F Pulse Rate 103 H 119 H 111 H Respiratory Rate 18 Blood Pressure 148/93 H Pulse Oximetry 100 Oxygen Delivery 04/03/25 20:00 04/03/25 20:00 04/03/25 21:19 Temperature Pulse Rate 113 H Respiratory Rate Blood Pressure Pulse Oximetry 100 Oxygen Delivery Room Air Room Air 04/03/25 22:37 04/04/25 00:00 04/04/25 00:00 Temperature Pulse Rate 111 H 103 H Respiratory Rate Blood Pressure Pulse Oximetry Oxygen Delivery Room Air 04/04/25 00:00 04/04/25 02:00 04/04/25 04:00 Temperature 97.5 F L Pulse Rate 78 109 H 104 H Respiratory Rate 16 Blood Pressure 154/77 H Pulse Oximetry 98 Oxygen Delivery 04/04/25 04:00 04/04/25 04:00 04/04/25 06:00 Temperature 97.7 F Pulse Rate 116 H Respiratory Rate 102 H Blood Pressure 152/89 H Pulse Oximetry 18 L Oxygen Delivery Room Air 04/04/25 08:00 Temperature 98.9 F Pulse Rate 106 H Respiratory Rate 20 Blood Pressure 127/86 Pulse Oximetry 99 Oxygen Delivery Intake/Output Intake/Output: Intake & Output 04/01/25 04/02/25 04/03/25 04/04/25 23:59 23:59 23:59 23:59 Intake Total 2536.3 1378.5 1160 500 Output Total 1950 1650 2250 900 Balance 586.3 -271.5 -1090 -400 Meds/Results Medications: Active Medications Generic Name Dose Route Start Last Admin Trade Name Freq PRN Reason Stop Dose Admin Hydrocodone Bitart/Acetaminophen 1 tab 03/30/25 21:18 04/04/25 02:38 Hydrocodone/Acetaminophen (*Crx) 5-325 Mg Tablet PO 1 tab Q6H PRN Administration Pain Rated 7-10 Artificial Tears 1 drop 04/01/25 12:59 Artificial Tears Ophth Soln 15 Ml Bottle EACH EYE QID PRN Dry Eye(s) Bisacodyl 5 mg 04/04/25 09:00 04/04/25 09:57 Bisacodyl 5 Mg Tablet Ec PO 5 mg QAM BRYON Administration Enoxaparin Sodium 40 mg 04/01/25 09:00 04/04/25 09:55 Enoxaparin 40 Mg/0.4 Ml Syringe SUB-Q 40 mg DAILY BRYON Administration Folic Acid 1 mg 03/31/25 09:00 04/04/25 09:55 Folic Acid 1 Mg Tablet PO 1 mg DAILY BRYON Administration Thiamine HCl 500 mg in 100 mls @ 200 mls/hr 03/31/25 03:00 04/04/25 06:43 IVPB 04/05/25 02:59 Infused Q8H BRYON Infusion Levothyroxine Sodium 50 mcg 03/31/25 06:30 04/04/25 06:41 Levothyroxine Sodium 50 Mcg Tablet PO 50 mcg DAILY@0630 BRYON Administration Lisinopril 20 mg 03/31/25 09:00 04/04/25 09:55 Lisinopril 20 Mg Tablet PO 20 mg DAILY BRYON Administration Methocarbamol 750 mg 03/31/25 02:49 04/03/25 19:49 Methocarbamol 750 Mg Tablet PO 750 mg TID PRN Administration muscle spasm Ondansetron HCl 4 mg 03/30/25 17:24 Ondansetron Inj 4 Mg/2 Ml Vial IV PUSH Q4H PRN Nausea Pantoprazole Sodium 40 mg 03/31/25 09:00 04/04/25 09:55 Pantoprazole 40 Mg Tablet PO 40 mg QAM BRYON Administration Perflutren Lipid Microsphere 0 ml 04/02/25 07:38 Perflutren Lipid Microspheres 1.5 Ml Vial Diluted To 10 Ml Total Volume IV PUSH 04/05/25 07:38 ONCE PRN adequate visualization Protocol Polyethylene Glycol 17 gm 04/03/25 11:59 Polyethylene Glycol 3350 17 Gm Powd.Pack PO DAILY PRN Constipation Pregabalin 100 mg 03/31/25 09:00 04/04/25 09:55 Pregabalin (*Crx) 50 Mg Capsule PO 100 mg TID BRYON Administration Radiology Results: ITS Impressions Chest X-Ray 03/30/25 14:28 Impression: 1: Left basilar atelectasis. Head CT 03/30/25 14:51 IMPRESSION: 1. No acute intracranial process. Abdomen/Pelvis CT 03/30/25 16:42 IMPRESSION: 1. No acute intra-abdominal/pelvic process. 2. Mild diffuse bladder wall thickening and small posterior bladder diverticulum suggestive of sequela of chronic outlet obstruction Brain MRI 04/01/25 16:35 IMPRESSION: 1. Small focus in the right frontal lobe white matter most likely ischemic. 2. No evidence of acute intracranial process. 3. No abnormal enhancement. Lumbar Puncture Fluoroscopy 04/02/25 15:46 IMPRESSION: 1. Successful fluoro-guided lumbar puncture with elevated opening pressure of 29 cm water. Labs Labs: Laboratory Results - last 24 hr 04/04/25 06:45 WBC 6.8 RBC 3.33 L Hgb 10.2 L Hct 29.6 L MCV 88.9 MCH 30.6 MCHC 34.5 RDW 14.1 Plt Count 173 MPV 10.6 H Immature Gran % (Auto) 1.9 H Neut % (Auto) 68.2 Lymph % (Auto) 20.6 [place] % (Auto) 7.3 Eos % (Auto) 1.3 Baso % (Auto) 0.7 Lymph # (Auto) 1.39 [place] # (Auto) 0.5 Eos # (Auto) 0.1 Baso # (Auto) 0.1 Abs Immat Gran (auto) 0.13 H Absolute Neuts (auto) 4.6 Absolute Nucleated RBC 0.000 Nucleated RBC % 0.0 Sodium 133 L Potassium 4.3 Chloride 100 Carbon Dioxide 21 L Anion Gap 12 BUN 7 L Creatinine 0.72 Estim Creat Clear Calc 107 Estimated GFR > 60 Glucose 94 Calcium 9.6 Magnesium 2.0 Total Bilirubin 1.1 AST 52 ALT 52 H Alkaline Phosphatase 93 Total Protein 7.0 Albumin 4.0 Quality VTE Prophylaxis VTE prophylaxis: mechanical ordered (SCDs)
[2025-04-05] VITALS (13 sets, daily range): BP systolic 129–147; BP diastolic 77–100; PULSE 12–124; RESP 18–20; TEMP 36.8–37.3; O2SAT 97–99
[2025-04-05 04:46] LABS: Basophils Percent Auto 0.6 % (0.2-1.2); Eosinophils Absolute Auto 0.1 K/mm3 (0-0.3); Eosinophils Percent Auto 1.1 % (0-4.4); Hematocrit 27.7 % (42.0-52.0); Hemoglobin 9.4 g/dL (14.0-18.0); Immature Granulocyte Absolute 0.14 K/mm3 (0.00-0.031); Immature Granulocyte Percent A 2.2 % (0-0.5); Lymphocytes Absolute Auto 0.85 K/mm3 (0.9-3.2); Lymphocytes Percent Auto 13.3 % (18.3-44.2); Mean Corpuscular HGB Conc 33.9 g/dl (32-36); Mean Corpuscular Hemoglobin 30.4 pg (26-34); Mean Corpuscular Volume 89.6 fl (80-100); Mean Platelet Volume 10.6 fl (7.4-10.4); Monocytes Absolute Auto 0.4 K/mm3 (0.1-0.6); Monocytes Percent Auto 6.3 % (2.6-8.5); Neutrophils Absolute Auto 4.9 K/mm3 (1.3-6.7); Neutrophils Percent Auto 76.5 % (45.5-73.1); Platelet Count Result 180 k/mm3 (150-375); Red Blood Count 3.09 M/mm3 (4.6-6.20); Red Cell Distribution Width 14.5 % (11.5-14.5); White Blood Count 6.4 K/mm3 (4.5-10.0)
[2025-04-05 04:59] LABS: Alanine Aminotransferase 49 U/L (6-50); Albumin Level 3.9 g/dL (3.5-5.1); Alkaline Phosphatase 104 U/L (38-126); Anion Gap 10 mmol/L (4-12); Aspartate Amino Transferase 54 U/L (17-59); Bilirubin,Total 0.7 mg/dL (0.2-1.3); Blood Urea Nitrogen 8 mg/dL (9-20); Calcium 9.4 mg/dL (8.4-10.2); Carbon Dioxide 23 mmol/L (22-30); Chloride 100 mmol/L (98-107); Estimated CRCL calculation 127 ml/min; Estimated Glomerular Filt Rate > 60; Glucose 101 mg/dL (65-110); Potassium 3.9 mmol/L (3.4-5.0); Sodium 133 mmol/L (137-145)
[2025-04-05] MEDS: LORazepam INJ (*CRX) 2 MG/ML VIAL IV PUSH ×2 (05:13→05:37)
[2025-04-05] MEDS: LEVOTHYROXINE SODIUM 50 MCG TABLET PO (05:29)
--- NOTE | 2025-04-05 08:24 | PC.NURSE ---
Alert and oriented to self and place at this time. Able to indicate year and previous month (March). When asked where his from he states right there. When asked what city that he is from he states [place]. When asked what city he is currently in he states I have no idea. This RN told him he was in [place], [place]. He states That is close to [place]. This RN asked if that is where he currently lives he states No but I have lived there on and off. When asked where do you currently live he states [place]. When asked to do simple addition the patient is able to answer all mathematic questions appropriately. When asked why he came into the hospital the patient states To get my daughters. When asked how many children he has the patient states 4. No, 5. No 4. When asked how many boys, he states 2. When asked how many girls he states 3. No, 2; no 3. He is unable to hold both arms in the air at the same time, he lifts his right arm above his head and lifts his left arm off the of the bed in the opposite direction. He is able to easily lift his right leg and left leg off of the bed, however in order to lift his left leg, he has to bend it at the knee and lift from that position without extending it. All extremities are spastic and or tremoring. When asked if he see's anything such as insects or rodents crawling around on the [place] he states I see insects all over, two kinds When asked to describe them, he states lisinopril. He denies auditory hallucinations at this time.
[2025-04-05] MEDS: PANTOPRAZOLE 40 MG TABLET PO (09:26)
[2025-04-05] MEDS: BISACODYL 5 MG TABLET EC PO (09:26)
[2025-04-05] MEDS: FOLIC ACID 1 MG TABLET PO (09:26)
[2025-04-05] MEDS: lisinopriL 20 MG TABLET PO (09:26)
[2025-04-05] MEDS: PREGABALIN (*CRX) 50 MG CAPSULE 100 MG PO ×3 (09:26→16:26)
[2025-04-05] MEDS: ENOXAPARIN 40 MG/0.4 ML SYRINGE SUB-Q (09:28)
[2025-04-05] MEDS: methocarbamoL 750 MG TABLET PO (09:28)
--- NOTE | 2025-04-05 09:29 | PC.NURSE ---
Patient now states that he is hearing multiple people talking to him at once. He states that 20 people are out there, while pointing towards the window and half of them are in here.
--- NOTE | 2025-04-05 11:56 | PCNFU ---
Nutrition Follow-Up Complete: Inadequate oral intake related to loss of appetite as evidenced by intakes 0-10% Goal:PO intake as tolerated Pt current nutrition is Heart healthy, minced and moist level 5. Nutrition recommendation: Encourage po intake as much as possible Last recorded weight is 90.2 kg. Bowel Motility: No BM recorded at this time Labs Reviewed: hgb:9.4, HCT:27.7, NA:133, BUN:8, Cr:0.6 Meds Noted: folic acid, protonix, lovenox Skin: WNL Additional Notes: Pt continues on a minced and moist level 5, heart healthy diet, intake poor for meals overall at 0-10%, although pt reports he is eating ok. Pt is drinking the Ensure shakes regularly. Encourage po intake of meals, nursing and sitter assisting and encouraging. Agree with orders Monitoring intakes, weights, labs, supplement tolerance, plan of care Follow up in 3 days
--- NOTE | 2025-04-05 12:38 | P.CONNEU_ITS ---
Assessment and Plan Assessment and plan (1) Alcohol withdrawal syndrome: Code(s): F10.939 - Alcohol use, unspecified with withdrawal, unspecified Status: Acute Assessment and Plan: patient has features suggestive of alcohol withdrawal syndrome I suggested by hallucinations and tremulousness. He may have underlying cirrhosis of liver and Estrace 6 due to liver disorder. (2) Peripheral neuropathy: Code(s): G62.9 - Polyneuropathy, unspecified Status: Acute Assessment and Plan: He has been complaining of pain in his both hands and feet. Of all can lead to peripheral neuropathy of course other etiologies can be looked into in future. His serum B12 folic acid level were normal and he was then given vitamin-B supplements and now his levels are fairly high. (3) Heavy alcohol consumption: Code(s): F10.90 - Alcohol use, unspecified, uncomplicated Status: Chronic (4) Liver disease: Code(s): K76.9 - Liver disease, unspecified Status: Acute (5) Tobacco abuse: Code(s): Z72.0 - Tobacco use Status: Chronic Plan I would suggest supportive care and he may require Librium in view of the withdrawal symptoms and hallucinations. Hypotension should be avoided. Other supportive care measures are in place. Also also suggest check his ammonia level and if high you may consider lactulose. EEG is recommended if possible. High CSF for protein is not well explained by the findings however the opening pressure was described as being high at 290 mm. I did consider possibility of meningitis or encephalitis however the white cell count was well within normal range. He may consider antiviral treatment on parent basis pending the results of other workup for CSF. For the pain associated with neuropathy and noted that he is on pregabalin which is adequate. Consult date: 04/05/25 HPI: Tyree Rodriguez is a 49 year old male Who presented to the emergency room on 03/30/2025 with the generalized weakness. He has been dealing with pain and weakness in his extremities since January. Today also he explains that he has pain in his both hands and both feet. He has been evaluated at multiple different hospitals and was diagnosed to have peripheral neuropathy and started on gabapentin. Pain has persisted. His significant other has a reported that he there has been significant deterioration in the week prior to admission here. He was unable to walk independently. At the time when I saw him 1 of the nursing staff have been appointed to keep an eye on him be sitting with him since his mental status has worsened. He is now hallucinating. He also has jerking movements of both upper and lower limbs. There is a long history of alcoholism. It appears that he was scheduled to have a nerve conduction study the day after he was admitted at [facility]. At the time of the admission his serum sodium was 119 and potassium was 2.2. He has been seen by the Nephrology Services. His echocardiogram did not show any significant abnormality. Liver enzymes were higher at the time of admission but have come down. He has the MRI of the cervical, thoracic and lumbosacral spine were performed in view of the complaints of weakness in both lower limbs. He also had MRI of the brain on 04/01/2025 that has shown a small focus in the right frontal lobe most likely consider to ischemic however it did not seem hyperintense in the DWI sequence. MRI of the cervical and thoracic spine did not show any spinal cord compression. Study were however limited due to the motion artifact. Mild de degenerative changes appropriate for the age were described in lumbosacral spine as well as cervical spine. He also underwent spinal tap on 04/02/2025 which showed opening pressure was 29 cm of water. His CSF protein was high at 195 and glucose was 47 however WBC count was 4. The fluid was described as clear and colorless. As of today his serum sodium is up to 133. He was given high-dose vitamin B1 in view of history alcoholism. His vitamin B12 and folic acid level were normal. His liver enzymes were high and AST of 180 on 03/31/2025 and ALT was 78. However alkaline phosphatase normal. His CPK was 652 which is also high. Review of Systems 2 Review of Systems: Patient unable to give a detailed history of these however he complains of pain in his both hands and feet. [facility] Past Medical History Medical History (Updated 04/05/25 @ 12:53 by Cb Knowles MD) Peripheral neuropathy Alcohol withdrawal syndrome Neuropathy Chronic hyponatremia Hepatic steatosis Noted on CT scan 06/2022 Tobacco abuse Hypertension Asthma Anxiety Surgical History Surgical History H/O knee surgery H/O spinal fusion Social History Social History (Updated 03/31/25 @ 08:21 by Daina Galicia DO) Social History: The patient lives with his significant other. He has 2 daughters. He has smoked 1 pack per day since he was a teenager. He has a history of heavy alcohol use drinking up to 1 5th of vodka every other day with recent decrease in alcohol consumption down to 2-3 beers a day on weekdays and 10 beers a day on weekends. 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 The patient smokes marijuana nightly. Code status: Full code Smoking packs per day: 1 Smoking cigarettes per day: 20.0 Years smoked: 30 Smoking pack-years: 30.00 Smoking status: Current every day smoker Tobacco type: cigarettes Alcohol intake: current Drinks per week: 20 Alcohol use details: social Substance use: current Substance use type: marijuana Last use: 03/29/2025 Do You Feel Safe in your Home?: Yes Lack of Transportation: No Lack of Food: Never True Current Housing: I Have Housing Concerned About Future Housing: No Difficulty Paying Gas/Electric Bills: No Difficulty Paying for Meds: No Currently Unemployed: No Education: Associate Degree Difficulty w/ Childcare or Family Care: No Living arrangements: with family Gender identity (if verbalized by the patient): Male Spiritual care concerns: No Meds Home Medications and Allergies Home Medications ?Medication ?Instructions ?Recorded ?Confirmed ?Type albuterol 90 mcg/actuation aerosol 90 mcg inhalation TID PRN 06/12/22 03/30/25 History inhaler Shortness Of Breath alprazolam 0.5 mg tablet 0.5 mg PO TID PRN Anxiety 06/12/22 03/30/25 History lisinopril 20 mg tablet 20 mg PO DAILY 07/23/24 03/30/25 History omeprazole 20 mg tablet,delayed 20 mg PO DAILY #60 tabs 09/21/24 03/30/25 Rx release hydrocodone 5 mg-acetaminophen 325 1 tablet PO Q8H PRN pain #7 tabs 02/22/25 03/30/25 Rx mg tablet methocarbamol 750 mg tablet 750 mg PO TID PRN muscle spasm #14 02/22/25 03/31/25 Rx tabs folic acid 1 mg tablet 1 mg PO DAILY 03/30/25 03/30/25 History hydrochlorothiazide 25 mg tablet 25 mg PO DAILY 03/30/25 03/31/25 History levothyroxine 50 mcg tablet 50 mcg PO DAILY 03/30/25 03/30/25 History pregabalin 100 mg capsule 100 mg PO TID 03/30/25 03/30/25 History Allergies Allergy/AdvReac Type Severity Reaction Status Date / Time tramadol AdvReac Intermediate Agitated Verified 03/30/25 11:41 Vital Signs Vital Signs - 24 hr 04/04/25 14:00 04/04/25 16:00 04/04/25 16:00 Temperature 98.2 F Pulse Rate 113 H 120 H 122 H Pulse Rate [Bilateral Radial Palpation] Respiratory Rate 12 Blood Pressure 141/66 H Pulse Oximetry 98 Oxygen Delivery Fraction of Inspired Oxygen 04/04/25 18:00 04/04/25 18:56 04/04/25 20:00 Temperature 98.7 F Pulse Rate 113 H 113 H 113 H Pulse Rate [Bilateral Radial Palpation] Respiratory Rate 20 20 Blood Pressure 140/98 H Pulse Oximetry 99 99 Oxygen Delivery Room Air Fraction of Inspired Oxygen 04/04/25 20:00 04/04/25 21:35 04/04/25 23:00 Temperature Pulse Rate 116 H 50 L 111 H Pulse Rate [Bilateral Radial Palpation] Respiratory Rate Blood Pressure Pulse Oximetry 97 Oxygen Delivery Room Air Fraction of Inspired Oxygen 21 04/04/25 23:59 04/04/25 23:59 04/05/25 00:23 Temperature 97.9 F Pulse Rate 102 H 105 H Pulse Rate [Bilateral Radial Palpation] 105 H Respiratory Rate 18 Blood Pressure 146/93 H Pulse Oximetry 97 Oxygen Delivery Fraction of Inspired Oxygen 04/05/25 03:00 04/05/25 04:00 04/05/25 04:00 Temperature Pulse Rate 111 H 111 H Pulse Rate [Bilateral Radial Palpation] 105 H Respiratory Rate Blood Pressure 144/100 H Pulse Oximetry Oxygen Delivery Fraction of Inspired Oxygen 04/05/25 04:00 04/05/25 07:48 04/05/25 08:00 Temperature 98.3 F 99.1 F Pulse Rate 105 H 122 H 121 H Pulse Rate [Bilateral Radial Palpation] Respiratory Rate 18 20 Blood Pressure 144/100 H 137/77 Pulse Oximetry 97 97 Oxygen Delivery Fraction of Inspired Oxygen 04/05/25 08:00 04/05/25 08:00 04/05/25 12:00 Temperature 98.8 F Pulse Rate 121 H 124 H Pulse Rate [Bilateral Radial Palpation] 12 L Respiratory Rate 20 20 Blood Pressure 137/77 129/89 Pulse Oximetry 97 99 Oxygen Delivery Room Air Fraction of Inspired Oxygen 21 Exam 2 Narrative: The patient is awake. Although I did not notice any words suggestive of hallucinations however the nursing staff sitting next to him and watch him constantly is noted the patient has often expressed visual hallucinations. The patient appears tremulous moving both upper and lower limbs. no aphasia or dysarthria.Examination head and neck shows no evidence of external injuries . No carotid bruit. Cranial nerves pupils were equal and reacting. Extraocular movements did not show any asymmetry at this time. It was noted that in the previous examinations he was noted to have some disc conjugate eye movements. Visual lind by confrontation are normal. There is no facial asymmetry. Tongue was midline other cranial normal limits. Motor system he appears to have normal strength in both upper lower limbs and deep tendon reflexes did not show any Hyper-reflexia at other the knee and ankle face appeared decreased. sensory examination reveals distal sensory loss in both lower limbs. Sense of vibration also decreased in both lower limbs. Movement of the arms and leg appears to be suggestive of asterixis. Results Labs 04/05/25 04:30 04/05/25 04:30 Labs: Short CBC 04/05/25 Range/Units 04:30 WBC 6.4 (4.5-10.0) K/mm3 Hgb 9.4 L (14.0-18.0) g/dL Hct 27.7 L (42.0-52.0) % Plt Count 180 (150-375) k/mm3 BMP 04/05/25 04:30 Sodium 133 L Potassium 3.9 Chloride 100 Carbon Dioxide 23 BUN 8 L Creatinine 0.60 L Glucose 101 Calcium 9.4 Liver Function 04/05/25 Range/Units 04:30 Total Bilirubin 0.7 (0.2-1.3) mg/dL AST 54 (17-59) U/L ALT 49 (6-50) U/L Alkaline Phosphatase 104 (38-126) U/L Albumin 3.9 (3.5-5.1) g/dL
--- NOTE | 2025-04-05 13:04 | PC.NURSE ---
Patient remains oriented to self and name of hospital, however when asked what kind of facility this is he is unable to answer he just states [facility]. Family is at the bedside at this time. Discussed with them plan of care including medications. Patient continues to hallucinate, tactile, audible and visual. He is able to identify his friend (by name and the fact that she is a neighbor), but unable to identify his girlfriend initially, calling her a different name. Continues to have tremors/jerking motions with body/body spasms. Does not appear to have any signs of pain or discomfort when touched or repositioned at this time.
--- NOTE | 2025-04-05 13:21 | PCOTNOTE ---
Per RN, Patient unable to participate. Patient having severe spasticity, increased hallucinations. Patient's girlfriend present in the room. RN stated they are going to start 2 new medications to assist.
[2025-04-05 13:22] LABS: Ammonia < 9 umol/L (9-30)
[2025-04-05 13:23] LABS: Magnesium 2.1 mg/dL (1.6-2.3)
--- NOTE | 2025-04-05 13:33 | PCPTNOTE ---
The patient treatment was not able to be completed today. RN reports patient is not able to participate in therapy. Will plan to continue treatment per plan of care.
--- NOTE | 2025-04-05 14:13 | PC.NURSE ---
Updated hospitalist on neurology notes and ammonia level. Orders received to start Librium 25mg TID PRN for alcohol withdraw symptoms. Orders placed as received.
[2025-04-05] MEDS: chlordiazePOXIDE (*CRX) 25 MG CAPSULE PO ×2 (14:21→21:32)
--- NOTE | 2025-04-05 15:30 | PM.IMPN ---
Progress Note: A&P Assessment and Plan (1) Acute hypokalemia: Code(s): E87.6 - Hypokalemia Status: Acute (2) Acute hyponatremia: Code(s): E87.1 - Hypo-osmolality and hyponatremia Status: Acute (3) Hepatic steatosis: Code(s): K76.0 - Fatty (change of) liver, not elsewhere classified Status: Chronic (4) Generalized weakness: Code(s): R53.1 - Weakness Status: Acute (5) Heavy alcohol consumption: Code(s): F10.90 - Alcohol use, unspecified, uncomplicated Status: Chronic (6) Metabolic alkalosis with respiratory acidosis: Code(s): E87.4 - Mixed disorder of acid-base balance Status: Acute (7) Acute anemia: Code(s): D64.9 - Anemia, unspecified Status: Acute (8) Dysmetria: Code(s): R27.8 - Other lack of coordination Status: Acute (9) Abnormal lateral conjugate gaze: Code(s): H51.8 - Other specified disorders of binocular movement Status: Acute (10) Alcohol abuse: Code(s): F10.10 - Alcohol abuse, uncomplicated Status: Acute (11) Ataxia: Code(s): R27.0 - Ataxia, unspecified Status: Acute (12) Tobacco abuse: Code(s): Z72.0 - Tobacco use Status: Chronic Plan Lower extremities weakness and numbness Alcohol neuropathy, stroke, cord compression vs electrolyte imbalance vs Wernicke's Korsakoff syndrome B12/folate wnl Patient is a heavy alcoholic, LAD was 3/7 MRI w/ow brain possible ischemic focus ECHO showed normal LV function , MRI total spine no acute findings CSF showed albuminocytologic dissociation, f/u cultures and PCRs Discussed with Dr Knowles, neurologist, noted he suspects Encephalitis in addition to alcohol withdrawal EEg pending PT/OT Neurology following Anemia Hb 9.8 Isat 77 monitor Hyponatremia, reoslved Na 133, Nephrology evaluated and noted that patient has chronci hyponatremia on currently within his baseline. monitor Alcohol abuse/withdrawal with hallucination CIWA, continue Thiamine and folate DVT prophylaxis on Sq lovenox Subjective Date/time seen: 04/05/25 15:30 Interval history: patient having hallucination Review of Systems Review of Systems: 12 systems were reviewed with pertinent positives and negatives per HPI. Except as documented in the HPI, all other systems were reviewed and are negative. Exam Narrative: General: alert and comfortable Eyes: EOMI, PERRLA ENNT External ears normal, Neck is supple, no masses, Respiratory systems: Clear to auscultation Cardiovascular S1, S2, normal rhythm, no murmur, rub, or gallop; no thrill or palpable murmurs on palpation. Gastrointestinal: soft, non-tender, and non-distended abdomen with no masses; BS present Skin: no rash, lesions, ulcerations, subcutaneous nodules or induration Musculoskeletal: no abnormality and no tenderness, normal ROM Neurologic: Alert and oriented x3, power about 2/5 glocally Mental Status Exam: normal affect Objective Data Vital Signs Vital Signs: Vital Signs - 24 hr 04/04/25 16:00 04/04/25 16:00 04/04/25 18:00 Temperature 98.2 F Pulse Rate 120 H 122 H 113 H Pulse Rate [Bilateral Radial Palpation] Respiratory Rate 12 Blood Pressure 141/66 H Pulse Oximetry 98 Oxygen Delivery Fraction of Inspired Oxygen 04/04/25 18:56 04/04/25 20:00 04/04/25 20:00 Temperature 98.7 F Pulse Rate 113 H 113 H 116 H Pulse Rate [Bilateral Radial Palpation] Respiratory Rate 20 20 Blood Pressure 140/98 H Pulse Oximetry 99 99 Oxygen Delivery Room Air Fraction of Inspired Oxygen 04/04/25 21:35 04/04/25 23:00 04/04/25 23:59 Temperature Pulse Rate 50 L 111 H 102 H Pulse Rate [Bilateral Radial Palpation] Respiratory Rate Blood Pressure Pulse Oximetry 97 Oxygen Delivery Room Air Fraction of Inspired Oxygen 21 04/04/25 23:59 04/05/25 00:23 04/05/25 03:00 Temperature 97.9 F Pulse Rate 105 H 111 H Pulse Rate [Bilateral Radial Palpation] 105 H Respiratory Rate 18 Blood Pressure 146/93 H Pulse Oximetry 97 Oxygen Delivery Fraction of Inspired Oxygen 04/05/25 04:00 04/05/25 04:00 04/05/25 04:00 Temperature 98.3 F Pulse Rate 111 H 105 H Pulse Rate [Bilateral Radial Palpation] 105 H Respiratory Rate 18 Blood Pressure 144/100 H 144/100 H Pulse Oximetry 97 Oxygen Delivery Fraction of Inspired Oxygen 04/05/25 07:48 04/05/25 08:00 04/05/25 08:00 Temperature 99.1 F Pulse Rate 122 H 121 H Pulse Rate [Bilateral Radial Palpation] 12 L Respiratory Rate 20 Blood Pressure 137/77 137/77 Pulse Oximetry 97 Oxygen Delivery Fraction of Inspired Oxygen 04/05/25 08:00 04/05/25 10:00 04/05/25 12:00 Temperature 98.8 F Pulse Rate 121 H 121 H 124 H Pulse Rate [Bilateral Radial Palpation] Respiratory Rate 20 20 Blood Pressure 129/89 Pulse Oximetry 97 99 Oxygen Delivery Room Air Fraction of Inspired Oxygen 21 04/05/25 12:00 04/05/25 12:00 04/05/25 14:00 Temperature Pulse Rate 123 H 117 H Pulse Rate [Bilateral Radial Palpation] 123 H Respiratory Rate Blood Pressure Pulse Oximetry Oxygen Delivery Fraction of Inspired Oxygen Intake/Output Intake/Output: Intake & Output 04/02/25 04/03/25 04/04/25 04/05/25 23:59 23:59 23:59 23:59 Intake Total 1378.5 1160 1260 220 Output Total 1650 2250 2100 Balance -271.5 -1090 -840 220 Meds/Results Medications: Active Medications Generic Name Dose Route Start Last Admin Trade Name Freq PRN Reason Stop Dose Admin Hydrocodone Bitart/Acetaminophen 1 tab 03/30/25 21:18 04/04/25 17:57 Hydrocodone/Acetaminophen (*Crx) 5-325 Mg Tablet PO 1 tab Q6H PRN Administration Pain Rated 7-10 Artificial Tears 1 drop 04/01/25 12:59 Artificial Tears Ophth Soln 15 Ml Bottle EACH EYE QID PRN Dry Eye(s) Bisacodyl 5 mg 04/04/25 09:00 04/05/25 09:26 Bisacodyl 5 Mg Tablet Ec PO 5 mg QAM BRYON Administration Chlordiazepoxide HCl 25 mg 04/05/25 14:12 04/05/25 14:21 Chlordiazepoxide (*Crx) 25 Mg Capsule PO 25 mg TID PRN Administration Withdrawal Enoxaparin Sodium 40 mg 04/01/25 09:00 04/05/25 09:28 Enoxaparin 40 Mg/0.4 Ml Syringe SUB-Q 40 mg DAILY BRYON Administration Folic Acid 1 mg 03/31/25 09:00 04/05/25 09:26 Folic Acid 1 Mg Tablet PO 1 mg DAILY BRYON Administration Levothyroxine Sodium 50 mcg 03/31/25 06:30 04/05/25 05:29 Levothyroxine Sodium 50 Mcg Tablet PO 50 mcg DAILY@0630 BRYON Administration Lisinopril 20 mg 03/31/25 09:00 04/05/25 09:26 Lisinopril 20 Mg Tablet PO 20 mg DAILY BRYON Administration Methocarbamol 750 mg 03/31/25 02:49 04/05/25 09:28 Methocarbamol 750 Mg Tablet PO 750 mg TID PRN Administration muscle spasm Ondansetron HCl 4 mg 03/30/25 17:24 Ondansetron Inj 4 Mg/2 Ml Vial IV PUSH Q4H PRN Nausea Pantoprazole Sodium 40 mg 03/31/25 09:00 04/05/25 09:26 Pantoprazole 40 Mg Tablet PO 40 mg QAM BRYON Administration Polyethylene Glycol 17 gm 04/03/25 11:59 Polyethylene Glycol 3350 17 Gm Powd.Pack PO DAILY PRN Constipation Pregabalin 100 mg 03/31/25 09:00 04/05/25 14:20 Pregabalin (*Crx) 50 Mg Capsule PO 100 mg TID BRYON Administration Radiology Results: ITS Impressions Chest X-Ray 03/30/25 14:28 Impression: 1: Left basilar atelectasis. Head CT 03/30/25 14:51 IMPRESSION: 1. No acute intracranial process. Abdomen/Pelvis CT 03/30/25 16:42 IMPRESSION: 1. No acute intra-abdominal/pelvic process. 2. Mild diffuse bladder wall thickening and small posterior bladder diverticulum suggestive of sequela of chronic outlet obstruction Brain MRI 04/01/25 16:35 IMPRESSION: 1. Small focus in the right frontal lobe white matter most likely ischemic. 2. No evidence of acute intracranial process. 3. No abnormal enhancement. Lumbar Puncture Fluoroscopy 04/02/25 15:46 IMPRESSION: 1. Successful fluoro-guided lumbar puncture with elevated opening pressure of 29 cm water. Cervical Spine MRI 04/04/25 13:10 IMPRESSION: 1. Moderate to severely limited study due to motion artifact. 2. Mild to moderate cervical spondylosis with only minimal central canal stenosis. 3. No evident cord signal abnormalities or abnormally enhancing lesions identified. Thoracic Spine MRI 04/04/25 13:19 IMPRESSION: 1. Mild thoracic spondylosis. 2. No definitive cord signal abnormalities or abnormally enhancing lesions. Evaluation of cord signal is however moderately limited by motion artifact and relatively mild on the sagittal images but moderate severity on the axial imaging. Lumbar Spine MRI 04/04/25 13:27 IMPRESSION: 1. Mild lumbar spondylosis with instrumented L3-S1 anterior spinal fusion. Labs Labs: Laboratory Results - last 24 hr 04/05/25 04/05/25 04:30 13:08 WBC 6.4 RBC 3.09 L Hgb 9.4 L Hct 27.7 L MCV 89.6 MCH 30.4 MCHC 33.9 RDW 14.5 Plt Count 180 MPV 10.6 H Immature Gran % (Auto) 2.2 H Neut % (Auto) 76.5 H Lymph % (Auto) 13.3 L [place] % (Auto) 6.3 Eos % (Auto) 1.1 Baso % (Auto) 0.6 Lymph # (Auto) 0.85 L [place] # (Auto) 0.4 Eos # (Auto) 0.1 Baso # (Auto) 0.0 Abs Immat Gran (auto) 0.14 H Absolute Neuts (auto) 4.9 Absolute Nucleated RBC 0.000 Nucleated RBC % 0.0 Sodium 133 L Potassium 3.9 Chloride 100 Carbon Dioxide 23 Anion Gap 10 BUN 8 L Creatinine 0.60 L Estim Creat Clear Calc 127 Estimated GFR > 60 Glucose 101 Calcium 9.4 Magnesium 2.0 2.1 Total Bilirubin 0.7 AST 54 ALT 49 Alkaline Phosphatase 104 Ammonia < 9 L Total Protein 7.0 Albumin 3.9 Quality VTE Prophylaxis VTE prophylaxis: mechanical ordered (SCDs)
[2025-04-05] MEDS: ACYCLOVIR SODIUM IVPB 900 MG in DEXTROSE 5% IN WATER 250 ML 250 MG IVPB ×2 (16:24→23:58)
[2025-04-06] VITALS (14 sets, daily range): BP systolic 106–147; BP diastolic 71–92; PULSE 101–125; RESP 16–24; TEMP 36.9–38.2; O2SAT 96–99
[2025-04-06] MEDS: LORazepam INJ (*CRX) 2 MG/ML VIAL IV PUSH ×2 (00:32→01:28)
[2025-04-06] MEDS: methocarbamoL 750 MG TABLET PO ×2 (01:28→20:56)
[2025-04-06] MEDS: THIAMINE HCL 100 MG TABLET PO (08:46)
[2025-04-06] MEDS: ENOXAPARIN 40 MG/0.4 ML SYRINGE SUB-Q (08:46)
[2025-04-06] MEDS: PANTOPRAZOLE 40 MG TABLET PO (08:46)
[2025-04-06] MEDS: PREGABALIN (*CRX) 50 MG CAPSULE 100 MG PO ×2 (08:46→12:57)
[2025-04-06] MEDS: chlordiazePOXIDE (*CRX) 25 MG CAPSULE PO ×3 (08:46→18:08)
[2025-04-06] MEDS: FOLIC ACID 1 MG TABLET PO (08:46)
[2025-04-06] MEDS: lisinopriL 20 MG TABLET PO (08:46)
[2025-04-06 09:41] LABS: IFOB Positive Control Positive; Immunochemical Fecal Occult Bl Positive (N)
[2025-04-06] MEDS: ACYCLOVIR SODIUM IVPB 900 MG in DEXTROSE 5% IN WATER 250 ML 250 MG IVPB ×2 (09:50→18:09)
[2025-04-06 10:13] LABS: Toxigenic C. Diff NEGATIVE (NEGATIVE)
[2025-04-06 12:34] LABS: Chloride Rand Ur <20 mmol/L (32-290); Creatinine Random Urine 74 mg/dL (20-320)
--- NOTE | 2025-04-06 13:00 | PCOTNOTE ---
Per RN, Patient is unable to participate in activity at this time. Patient having increased difficulties and RN states they are increasing some of his medications to assist. Will try back tomorrow for session.
--- NOTE | 2025-04-06 13:06 | WPDNEUROLOGY ---
Neurology EEG Report General Information Date of Study: 04/06/25 TEST EEG
[2025-04-06] MEDS: LORazepam INJ (*CRX) 2 MG/ML VIAL 1 MG IV PUSH (13:10)
--- NOTE | 2025-04-06 13:10 | PCPTNOTE ---
The patient treatment was not able to be completed this afternoon. RN states patient is unable to participate in therapy due to increased pain and muscle spasms. Will plan to continue treatment per plan of care.
[2025-04-06] MEDS: THIAMINE HCL 100 MG TABLET 500 MG PO (13:11)
--- NOTE | 2025-04-06 13:13 | PC.NURSE ---
RN entered room with . Pt complaining of bilateral leg pain and thrashing around in bed. New orders for 1mg IVP Ativan x1 now. Increase thiamine and Lyrica dosing, and change Librium to scheduled from PRN. New orders received and entered by this RN
--- NOTE | 2025-04-06 14:41 | WPDNEUROLOGY ---
Neurology EEG Report General Information Date of Study: 05/03/25 TEST EEG DIAGNOSIS Encephalitis. CONDITION OF RECORDING drowsy and asleep. EEG NUMBER [id number] CLINICAL HISTORY Patient is here for alcohol withdrawal syndrome with hallucinations constant whole body tremors and twitching. EEG DESCRIPTION Background rhythm consists of low-voltage 15 to 21 hertz per 2nd beta activity admixed with low-voltage 9 to 11 hertz per 2nd alpha and 5 to 7 hertz per 2nd theta activity evolving into bilateral symmetrical sleep activity but compromised with multiple movement artifacts. photic stimulation not done. Hyperventilation not done. Non paroxysmal. Nonfocal. Nonlateralizing. IMPRESSION No significant abnormalities noted in this particular tracing Rich has evidence of any seizure-like activity although the background is poorly developed ,clinical correlation.
[2025-04-06 16:33] LABS: Epstein Barr Virus DNA PCR Not Detected (Not Detected); Source Epstein Barr Virus Results Below
--- NOTE | 2025-04-06 17:54 | P.PNIM_ITS ---
Progress Note: A&P Assessment and Plan (1) Acute hypokalemia: Code(s): E87.6 - Hypokalemia Status: Acute (2) Acute hyponatremia: Code(s): E87.1 - Hypo-osmolality and hyponatremia Status: Acute (3) Hepatic steatosis: Code(s): K76.0 - Fatty (change of) liver, not elsewhere classified Status: Chronic (4) Generalized weakness: Code(s): R53.1 - Weakness Status: Acute (5) Heavy alcohol consumption: Code(s): F10.90 - Alcohol use, unspecified, uncomplicated Status: Chronic (6) Metabolic alkalosis with respiratory acidosis: Code(s): E87.4 - Mixed disorder of acid-base balance Status: Acute (7) Acute anemia: Code(s): D64.9 - Anemia, unspecified Status: Acute (8) Dysmetria: Code(s): R27.8 - Other lack of coordination Status: Acute (9) Abnormal lateral conjugate gaze: Code(s): H51.8 - Other specified disorders of binocular movement Status: Acute (10) Alcohol abuse: Code(s): F10.10 - Alcohol abuse, uncomplicated Status: Acute (11) Ataxia: Code(s): R27.0 - Ataxia, unspecified Status: Acute (12) Tobacco abuse: Code(s): Z72.0 - Tobacco use Status: Chronic Plan patient with long history of alcohol abuse, presented with twitching, his B12 level, he is poor historian, patient is monitored with CIWA protocol, will continue Librium 25mg q6 for 2 days and then taper to q8 and monitor, will inc rease lyrica to 150mg TID from 100mg TID and increase thiamin to 500mg daily from 100mg, gave Ativan 1mg IV x1, will monitor, patient will be seen by neurologist and further recommendation to follow. Lower extremities weakness and numbness Alcohol neuropathy, stroke, cord compression vs electrolyte imbalance vs Wernicke's Korsakoff syndrome B12/folate wnl Patient is a heavy alcoholic, LAD was 3/7 MRI w/ow brain possible ischemic focus ECHO showed normal LV function , MRI total spine no acute findings CSF showed albuminocytologic dissociation, f/u cultures and PCRs Discussed with Dr Knowles, neurologist, noted he suspects Encephalitis in addition to alcohol withdrawal EEg pending PT/OT Neurology following Anemia Hb 9.8 Isat 77 monitor Hyponatremia, reoslved Na 133, Nephrology evaluated and noted that patient has chronci hyponatremia on currently within his baseline. monitor Alcohol abuse/withdrawal with hallucination CIWA, continue Thiamine and folate DVT prophylaxis on Sq lovenox Subjective Date/time seen: 04/06/25 17:54 Interval history: patient with long history of alcohol abuse, presented with twitching, his B12 level, he is poor historian, patient is monitored with CIWA protocol, will continue Librium 25mg q6 for 2 days and then taper to q8 and monitor, will increase lyrica to 150mg TID from 100mg TID and increase thiamin to 500mg daily from 100mg, gave Ativan 1mg IV x1, will monitor, patient will be seen by neurologist and further recommendation to follow. Review of Systems Review of Systems: 12 systems were reviewed with pertinent positives and negatives per HPI. Except as documented in the HPI, all other systems were reviewed and are negative. Exam Narrative: Patient is comfortable, NAD HEENT: eyes are clear and none icteric LUNGS:CTA HEART: RR S1S2 ABD: BS+, Soft and nontender Lower extremities: no edema SKIN: nonjaundiced Neuro: grossly intact. twitching Objective Data Vital Signs Vital Signs: Vital Signs - 24 hr 04/05/25 18:00 04/05/25 20:00 04/05/25 20:00 Temperature Pulse Rate 118 H 118 H Pulse Rate [Bilateral Radial Palpation] 115 H Respiratory Rate 18 Blood Pressure 129/89 Pulse Oximetry 99 Oxygen Delivery Room Air 04/05/25 20:00 04/05/25 20:00 04/05/25 21:57 Temperature 36.9 C Pulse Rate 118 H 117 H 111 H Pulse Rate [Bilateral Radial Palpation] Respiratory Rate 18 Blood Pressure 147/92 H Pulse Oximetry 97 Oxygen Delivery 04/06/25 00:00 04/06/25 00:00 04/06/25 00:00 Temperature 36.9 C Pulse Rate 105 H 117 H Pulse Rate [Bilateral Radial Palpation] 112 H Respiratory Rate 18 Blood Pressure 147/92 H Pulse Oximetry 97 Oxygen Delivery 04/06/25 02:00 04/06/25 03:21 04/06/25 04:00 Temperature Pulse Rate 117 H 111 H Pulse Rate [Bilateral Radial Palpation] 112 H Respiratory Rate Blood Pressure Pulse Oximetry Oxygen Delivery 04/06/25 06:00 04/06/25 08:00 04/06/25 08:00 Temperature 37.6 C H Pulse Rate 101 H 104 H 102 H Pulse Rate [Bilateral Radial Palpation] Respiratory Rate 24 H Blood Pressure 135/92 H Pulse Oximetry 99 Oxygen Delivery 04/06/25 08:00 04/06/25 12:04 04/06/25 16:00 Temperature 37.3 C 37.6 C H Pulse Rate 102 H 123 H 121 H Pulse Rate [Bilateral Radial Palpation] Respiratory Rate 24 H 16 20 Blood Pressure 126/82 137/89 Pulse Oximetry 99 96 98 Oxygen Delivery Room Air Intake/Output Intake/Output: Intake & Output 04/03/25 04/04/25 04/05/25 04/06/25 23:59 23:59 23:59 23:59 Intake Total 1160 1571 875 9831 Output Total 2250 2100 575 550 Balance -1090 -840 333 666 Meds/Results Medications: Active Medications Generic Name Dose Route Start Last Admin Trade Name Freq PRN Reason Stop Dose Admin Hydrocodone Bitart/Acetaminophen 1 tab 03/30/25 21:18 04/04/25 17:57 Hydrocodone/Acetaminophen (*Crx) 5-325 Mg Tablet PO 1 tab Q6H PRN Administration Pain Rated 7-10 Artificial Tears 1 drop 04/01/25 12:59 Artificial Tears Ophth Soln 15 Ml Bottle EACH EYE QID PRN Dry Eye(s) Bisacodyl 5 mg 04/04/25 09:00 04/06/25 08:36 Bisacodyl 5 Mg Tablet Ec PO Not Given QAM [facility] Chlordiazepoxide HCl 25 mg 04/05/25 14:12 04/06/25 12:57 Chlordiazepoxide (*Crx) 25 Mg Capsule PO 25 mg TID PRN Administration Withdrawal Chlordiazepoxide HCl 25 mg 04/06/25 18:00 Chlordiazepoxide (*Crx) 25 Mg Capsule PO 04/08/25 12:01 Q6HR [facility] Chlordiazepoxide HCl 25 mg 04/08/25 20:00 Chlordiazepoxide (*Crx) 25 Mg Capsule PO 04/10/25 12:01 Q8H [facility] Enoxaparin Sodium 40 mg 04/01/25 09:00 04/06/25 08:46 Enoxaparin 40 Mg/0.4 Ml Syringe SUB-Q 40 mg DAILY BRYON Administration Folic Acid 1 mg 03/31/25 09:00 04/06/25 08:46 Folic Acid 1 Mg Tablet PO 1 mg DAILY BRYON Administration Acyclovir Sodium 900 mg/ 268 mls @ 250 mls/hr 04/05/25 16:00 04/06/25 12:17 Dextrose IVPB Infused Q8H [facility] Infusion Levothyroxine Sodium 50 mcg 03/31/25 06:30 04/06/25 05:46 Levothyroxine Sodium 50 Mcg Tablet PO Not Given DAILY@0630 [facility] Lisinopril 20 mg 03/31/25 09:00 04/06/25 08:46 Lisinopril 20 Mg Tablet PO 20 mg DAILY BRYON Administration Methocarbamol 750 mg 03/31/25 02:49 04/06/25 01:28 Methocarbamol 750 Mg Tablet PO 750 mg TID PRN Administration muscle spasm Ondansetron HCl 4 mg 03/30/25 17:24 Ondansetron Inj 4 Mg/2 Ml Vial IV PUSH Q4H PRN Nausea Pantoprazole Sodium 40 mg 03/31/25 09:00 04/06/25 08:46 Pantoprazole 40 Mg Tablet PO 40 mg QAM BRYON Administration Polyethylene Glycol 17 gm 04/03/25 11:59 Polyethylene Glycol 3350 17 Gm Powd.Pack PO DAILY PRN Constipation Pregabalin 150 mg 04/06/25 17:00 Pregabalin (*Crx) 75 Mg Capsule PO TID [facility] Thiamine HCl 500 mg 04/06/25 13:00 04/06/25 13:11 Thiamine Hcl 100 Mg Tablet PO 500 mg QAM BRYON Administration Radiology Results: ITS Impressions Chest X-Ray 03/30/25 14:28 Impression: 1: Left basilar atelectasis. Head CT 03/30/25 14:51 IMPRESSION: 1. No acute intracranial process. Abdomen/Pelvis CT 03/30/25 16:42 IMPRESSION: 1. No acute intra-abdominal/pelvic process. 2. Mild diffuse bladder wall thickening and small posterior bladder diverticulum suggestive of sequela of chronic outlet obstruction Brain MRI 04/01/25 16:35 IMPRESSION: 1. Small focus in the right frontal lobe white matter most likely ischemic. 2. No evidence of acute intracranial process. 3. No abnormal enhancement. Lumbar Puncture Fluoroscopy 04/02/25 15:46 IMPRESSION: 1. Successful fluoro-guided lumbar puncture with elevated opening pressure of 29 cm water. Cervical Spine MRI 04/04/25 13:10 IMPRESSION: 1. Moderate to severely limited study due to motion artifact. 2. Mild to moderate cervical spondylosis with only minimal central canal stenosis. 3. No evident cord signal abnormalities or abnormally enhancing lesions identified. Thoracic Spine MRI 04/04/25 13:19 IMPRESSION: 1. Mild thoracic spondylosis. 2. No definitive cord signal abnormalities or abnormally enhancing lesions. Evaluation of cord signal is however moderately limited by motion artifact and relatively mild on the sagittal images but moderate severity on the axial imaging. Lumbar Spine MRI 04/04/25 13:27 IMPRESSION: 1. Mild lumbar spondylosis with instrumented L3-S1 anterior spinal fusion. Labs Labs: Laboratory Results - last 24 hr 03/31/25 04/02/25 04/06/25 01:51 15:29 08:44 Ur Random Creatinine 74 Ur Random Chloride <20 L U Random Chloride/Creat See note Fluid EBV Source Results below CSF EBV DNA (PCR) Not detected Stl Occult Blood (IFOB) Positive H C. difficile (PCR) Negative Quality VTE Prophylaxis VTE prophylaxis: mechanical ordered (SCDs)
[2025-04-06] MEDS: PREGABALIN (*CRX) 75 MG CAPSULE 150 MG PO (18:08)
[2025-04-06] MEDS: ACETAMINOPHEN 325 MG TABLET 650 MG PO (20:50)
[2025-04-06 21:03] LABS: Herpes Simplex Type 1 DNA PCR Not Detected (Not Detected); Herpes Simplex Type 2 DNA PCR Not Detected (Not Detected)
[2025-04-07] VITALS (16 sets, daily range): BP systolic 121–152; BP diastolic 83–103; PULSE 104–116; RESP 18–20; TEMP 36.8–38.2; O2SAT 93–96
[2025-04-07 05:02] LABS: Hematocrit 30.7 % (42.0-52.0); Hemoglobin 10.4 g/dL (14.0-18.0); Mean Corpuscular HGB Conc 33.9 g/dl (32-36); Mean Corpuscular Hemoglobin 30.1 pg (26-34); Platelet Count Result 235 k/mm3 (150-375); Red Blood Count 3.45 M/mm3 (4.6-6.20); Red Cell Distribution Width 14.6 % (11.5-14.5)
[2025-04-07 05:09] LABS: Alanine Aminotransferase 45 U/L (6-50); Alkaline Phosphatase 92 U/L (38-126); Anion Gap 11 mmol/L (4-12); Aspartate Amino Transferase 54 U/L (17-59); Blood Urea Nitrogen 8 mg/dL (9-20); Calcium 9.3 mg/dL (8.4-10.2); Carbon Dioxide 23 mmol/L (22-30); Chloride 98 mmol/L (98-107); Estimated CRCL calculation 110 ml/min; Estimated Glomerular Filt Rate > 60; Glucose 112 mg/dL (65-110); Magnesium 2.2 mg/dL (1.6-2.3); Potassium 3.5 mmol/L (3.4-5.0); Sodium 132 mmol/L (137-145); Total Protein 6.9 g/dL (6.3-8.2)
[2025-04-07] MEDS: HYDROcodone/acetaminophen (*CRX) 5-325 MG TABLET 1 TAB PO ×2 (05:35→15:58)
[2025-04-07] MEDS: chlordiazePOXIDE (*CRX) 25 MG CAPSULE PO ×4 (05:35→17:08)
[2025-04-07] MEDS: LEVOTHYROXINE SODIUM 50 MCG TABLET PO (05:36)
[2025-04-07] MEDS: lisinopriL 20 MG TABLET PO (09:11)
[2025-04-07] MEDS: PREGABALIN (*CRX) 75 MG CAPSULE 150 MG PO ×3 (09:11→17:08)
[2025-04-07] MEDS: PANTOPRAZOLE 40 MG TABLET PO (09:11)
[2025-04-07] MEDS: THIAMINE HCL 100 MG TABLET 500 MG PO (09:11)
[2025-04-07] MEDS: FOLIC ACID 1 MG TABLET PO (09:11)
[2025-04-07] MEDS: ENOXAPARIN 40 MG/0.4 ML SYRINGE SUB-Q (09:11)
[2025-04-07] MEDS: ACYCLOVIR SODIUM IVPB 900 MG in DEXTROSE 5% IN WATER 250 ML 250 MG IVPB ×3 (09:13→15:56)
--- NOTE | 2025-04-07 15:18 | PCPTNOTE ---
Patient refused treatment this session due to increased pain and numbness x 4 extremities. Patient states pain increased after working with OT earlier in the day. He states pressure from having his feet on the floor increased a burning sensation in his feet and radiates up his legs. LAMBERT Majano was notified of patient's c/o pain. PT will continue to follow.
--- NOTE | 2025-04-07 16:26 | PM.IMPN ---
Progress Note: A&P Assessment and Plan (1) Acute hypokalemia: Code(s): E87.6 - Hypokalemia Status: Acute (2) Acute hyponatremia: Code(s): E87.1 - Hypo-osmolality and hyponatremia Status: Acute (3) Hepatic steatosis: Code(s): K76.0 - Fatty (change of) liver, not elsewhere classified Status: Chronic (4) Generalized weakness: Code(s): R53.1 - Weakness Status: Acute (5) Heavy alcohol consumption: Code(s): F10.90 - Alcohol use, unspecified, uncomplicated Status: Chronic (6) Metabolic alkalosis with respiratory acidosis: Code(s): E87.4 - Mixed disorder of acid-base balance Status: Acute (7) Acute anemia: Code(s): D64.9 - Anemia, unspecified Status: Acute (8) Dysmetria: Code(s): R27.8 - Other lack of coordination Status: Acute (9) Abnormal lateral conjugate gaze: Code(s): H51.8 - Other specified disorders of binocular movement Status: Acute (10) Alcohol abuse: Code(s): F10.10 - Alcohol abuse, uncomplicated Status: Acute (11) Ataxia: Code(s): R27.0 - Ataxia, unspecified Status: Acute (12) Tobacco abuse: Code(s): Z72.0 - Tobacco use Status: Chronic Plan patient with long history of alcohol abuse, presented with twitching, his B12 level is normal, he is poor historian, patient is monitored with CIWA protocol, will continue Librium 25mg q6 for 1 days and then taper to q8 and monitor, increased lyrica to 150mg TID from 100mg TID and increase thiamin to 500mg daily from 100mg, on 04/06 gave Ativan 1mg IV x1, today patient is twitching less, discussed with nurse he is mentation is improving, will monitor, patient will be seen by neurologist and further recommendation to follow. Lower extremities weakness and numbness Alcohol neuropathy, stroke, cord compression vs electrolyte imbalance vs Wernicke's Korsakoff syndrome B12/folate wnl Patient is a heavy alcoholic, LAD was 3/7 MRI w/ow brain possible ischemic focus ECHO showed normal LV function , MRI total spine no acute findings CSF showed albuminocytologic dissociation, f/u cultures and PCRs Discussed with Dr Knowles, neurologist, noted he suspects Encephalitis in addition to alcohol withdrawal EEg pending PT/OT Neurology following Anemia Hb 9.8 Isat 77 monitor Hyponatremia, reoslved Na 133, Nephrology evaluated and noted that patient has chronci hyponatremia on currently within his baseline. monitor Alcohol abuse/withdrawal with hallucination CIWA, continue Thiamine and folate DVT prophylaxis on Sq lovenox Subjective Date/time seen: 04/07/25 16:26 Interval history: patient with long history of alcohol abuse, presented with twitching, his B12 level is normal, he is poor historian, patient is monitored with CIWA protocol, will continue Librium 25mg q6 for 1 days and then taper to q8 and monitor, increased lyrica to 150mg TID from 100mg TID and increase thiamin to 500mg daily from 100mg, on 04/06 gave Ativan 1mg IV x1, today patient is twitching less, discussed with nurse he is mentation is improving, will monitor, patient will be seen by neurologist and further recommendation to follow. Review of Systems Review of Systems: 12 systems were reviewed with pertinent positives and negatives per HPI. Except as documented in the HPI, all other systems were reviewed and are negative. Exam Narrative: Patient is comfortable, NAD HEENT: eyes are clear and none icteric LUNGS:CTA HEART: RR S1S2 ABD: BS+, Soft and nontender Lower extremities: no edema SKIN: nonjaundiced Neuro: grossly intact. twitching Objective Data Vital Signs Vital Signs: Vital Signs - 24 hr 04/06/25 19:59 04/06/25 20:00 04/06/25 20:00 Temperature 38.1 C H Pulse Rate 125 H Pulse Rate [Bilateral Radial Palpation] 111 H Respiratory Rate 20 Blood Pressure 106/71 Pulse Oximetry 98 Oxygen Delivery Room Air 04/06/25 20:00 04/06/25 20:50 04/06/25 21:40 Temperature 38.2 C H 37.2 C Pulse Rate 119 H Pulse Rate [Bilateral Radial Palpation] Respiratory Rate Blood Pressure Pulse Oximetry Oxygen Delivery 04/06/25 21:45 04/07/25 00:00 04/07/25 00:00 Temperature Pulse Rate 106 H Pulse Rate [Bilateral Radial Palpation] 106 H Respiratory Rate Blood Pressure Pulse Oximetry 97 Oxygen Delivery Room Air 04/07/25 00:30 04/07/25 03:50 04/07/25 04:00 Temperature Pulse Rate 108 H Pulse Rate [Bilateral Radial Palpation] 111 H Respiratory Rate Blood Pressure 152/90 H Pulse Oximetry Oxygen Delivery 04/07/25 04:50 04/07/25 05:06 04/07/25 07:53 Temperature 36.8 C 37.0 C Pulse Rate 111 H 104 H Pulse Rate [Bilateral Radial Palpation] Respiratory Rate 20 20 Blood Pressure 128/103 H 130/92 H 127/98 H Pulse Oximetry 95 93 Oxygen Delivery 04/07/25 08:00 04/07/25 08:00 04/07/25 12:00 Temperature Pulse Rate 104 H 108 H 110 H Pulse Rate [Bilateral Radial Palpation] Respiratory Rate 20 Blood Pressure Pulse Oximetry 93 Oxygen Delivery Room Air 04/07/25 15:53 Temperature 38.2 C H Pulse Rate 116 H Pulse Rate [Bilateral Radial Palpation] Respiratory Rate 20 Blood Pressure 123/83 Pulse Oximetry 95 Oxygen Delivery Intake/Output Intake/Output: Intake & Output 04/04/25 04/05/25 04/06/25 04/07/25 23:59 23:59 23:59 23:59 Intake Total 3382 142 5380 836 Output Total 2100 575 1250 1250 Balance -840 333 874 -414 Meds/Results Medications: Active Medications Generic Name Dose Route Start Last Admin Trade Name Freq PRN Reason Stop Dose Admin Acetaminophen 650 mg 04/06/25 20:06 04/06/25 20:50 Acetaminophen 325 Mg Tablet PO 650 mg Q4H PRN Administration Mild Pain (1-3) or Fever Hydrocodone Bitart/Acetaminophen 1 tab 03/30/25 21:18 04/07/25 15:58 Hydrocodone/Acetaminophen (*Crx) 5-325 Mg Tablet PO 1 tab Q6H PRN Administration Pain Rated 7-10 Artificial Tears 1 drop 04/01/25 12:59 Artificial Tears Ophth Soln 15 Ml Bottle EACH EYE QID PRN Dry Eye(s) Bisacodyl 5 mg 04/04/25 09:00 04/07/25 09:13 Bisacodyl 5 Mg Tablet Ec PO Not Given QAM [facility] Chlordiazepoxide HCl 25 mg 04/05/25 14:12 04/06/25 12:57 Chlordiazepoxide (*Crx) 25 Mg Capsule PO 25 mg TID PRN Administration Withdrawal Chlordiazepoxide HCl 25 mg 04/06/25 18:00 04/07/25 12:34 Chlordiazepoxide (*Crx) 25 Mg Capsule PO 04/08/25 12:01 25 mg Q6HR [facility] Administration Chlordiazepoxide HCl 25 mg 04/08/25 20:00 Chlordiazepoxide (*Crx) 25 Mg Capsule PO 04/10/25 12:01 Q8H [facility] Enoxaparin Sodium 40 mg 04/01/25 09:00 04/07/25 09:11 Enoxaparin 40 Mg/0.4 Ml Syringe SUB-Q 40 mg DAILY [facility] Administration Folic Acid 1 mg 03/31/25 09:00 04/07/25 09:11 Folic Acid 1 Mg Tablet PO 1 mg DAILY [facility] Administration Acyclovir Sodium 900 mg/ 268 mls @ 250 mls/hr 04/05/25 16:00 04/07/25 15:56 Dextrose IVPB 250 mls/hr Q8H [facility] Administration Levothyroxine Sodium 50 mcg 03/31/25 06:30 04/07/25 05:36 Levothyroxine Sodium 50 Mcg Tablet PO 50 mcg DAILY@0630 [facility] Administration Lisinopril 20 mg 03/31/25 09:00 04/07/25 09:11 Lisinopril 20 Mg Tablet PO 20 mg DAILY [facility] Administration Methocarbamol 750 mg 03/31/25 02:49 04/06/25 20:56 Methocarbamol 750 Mg Tablet PO 750 mg TID PRN Administration muscle spasm Ondansetron HCl 4 mg 03/30/25 17:24 Ondansetron Inj 4 Mg/2 Ml Vial IV PUSH Q4H PRN Nausea Pantoprazole Sodium 40 mg 03/31/25 09:00 04/07/25 09:11 Pantoprazole 40 Mg Tablet PO 40 mg QAM [facility] Administration Polyethylene Glycol 17 gm 04/03/25 11:59 Polyethylene Glycol 3350 17 Gm Powd.Pack PO DAILY PRN Constipation Pregabalin 150 mg 04/06/25 17:00 04/07/25 12:34 Pregabalin (*Crx) 75 Mg Capsule PO 150 mg TID [facility] Administration Thiamine HCl 500 mg 04/06/25 13:00 04/07/25 09:11 Thiamine Hcl 100 Mg Tablet PO 500 mg QAM [facility] Administration Radiology Results: ITS Impressions Chest X-Ray 03/30/25 14:28 Impression: 1: Left basilar atelectasis. Head CT 03/30/25 14:51 IMPRESSION: 1. No acute intracranial process. Abdomen/Pelvis CT 03/30/25 16:42 IMPRESSION: 1. No acute intra-abdominal/pelvic process. 2. Mild diffuse bladder wall thickening and small posterior bladder diverticulum suggestive of sequela of chronic outlet obstruction Brain MRI 04/01/25 16:35 IMPRESSION: 1. Small focus in the right frontal lobe white matter most likely ischemic. 2. No evidence of acute intracranial process. 3. No abnormal enhancement. Lumbar Puncture Fluoroscopy 04/02/25 15:46 IMPRESSION: 1. Successful fluoro-guided lumbar puncture with elevated opening pressure of 29 cm water. Cervical Spine MRI 04/04/25 13:10 IMPRESSION: 1. Moderate to severely limited study due to motion artifact. 2. Mild to moderate cervical spondylosis with only minimal central canal stenosis. 3. No evident cord signal abnormalities or abnormally enhancing lesions identified. Thoracic Spine MRI 04/04/25 13:19 IMPRESSION: 1. Mild thoracic spondylosis. 2. No definitive cord signal abnormalities or abnormally enhancing lesions. Evaluation of cord signal is however moderately limited by motion artifact and relatively mild on the sagittal images but moderate severity on the axial imaging. Lumbar Spine MRI 04/04/25 13:27 IMPRESSION: 1. Mild lumbar spondylosis with instrumented L3-S1 anterior spinal fusion. Labs Labs: Laboratory Results - last 24 hr 04/02/25 04/07/25 15:29 04:20 WBC 5.0 RBC 3.45 L Hgb 10.4 L Hct 30.7 L MCV 89.0 MCH 30.1 MCHC 33.9 RDW 14.6 H Plt Count 235 MPV 11.0 H Sodium 132 L Potassium 3.5 Chloride 98 Carbon Dioxide 23 Anion Gap 11 BUN 8 L Creatinine 0.70 Estim Creat Clear Calc 110 Estimated GFR > 60 Glucose 112 H Calcium 9.3 Magnesium 2.2 Total Bilirubin 1.0 AST 54 ALT 45 Alkaline Phosphatase 92 Total Protein 6.9 Albumin 4.0 Fluid EBV Source Results below CSF EBV DNA (PCR) Not detected CSF Herpes I DNA (PCR) Not detected CSF Herpes II DNA (PCR) Not detected HSV (PCR) Source Results below Quality VTE Prophylaxis VTE prophylaxis: mechanical ordered (SCDs)
[2025-04-07 19:34] LABS: Cryptococcus Antigen NOT DETECTED; Cryptococcus Specimen Source CEREBROSPINAL FLUID
[2025-04-07] MEDS: methocarbamoL 750 MG TABLET PO (20:36)
[2025-04-07] MEDS: ACETAMINOPHEN 325 MG TABLET 650 MG PO (20:44)
[2025-04-08] VITALS (12 sets, daily range): BP systolic 100–143; BP diastolic 60–89; PULSE 105–117; RESP 17–18; TEMP 36.6–37.9; O2SAT 17–97
[2025-04-08] MEDS: HYDROcodone/acetaminophen (*CRX) 5-325 MG TABLET 1 TAB PO ×2 (00:10→12:28)
[2025-04-08] MEDS: chlordiazePOXIDE (*CRX) 25 MG CAPSULE PO ×3 (00:10→12:23)
[2025-04-08] MEDS: ACYCLOVIR SODIUM IVPB 900 MG in DEXTROSE 5% IN WATER 250 ML 250 MG IVPB ×3 (00:11→21:27)
[2025-04-08 04:33] LABS: Hematocrit 31.9 % (42.0-52.0); Hemoglobin 10.6 g/dL (14.0-18.0); Mean Corpuscular HGB Conc 33.2 g/dl (32-36); Mean Corpuscular Hemoglobin 30.2 pg (26-34); Mean Corpuscular Volume 90.9 fl (80-100); Mean Platelet Volume 10.8 fl (7.4-10.4); Platelet Count Result 229 k/mm3 (150-375); Red Blood Count 3.51 M/mm3 (4.6-6.20); Red Cell Distribution Width 14.9 % (11.5-14.5); White Blood Count 6.7 K/mm3 (4.5-10.0)
[2025-04-08 04:56] LABS: Alanine Aminotransferase 44 U/L (6-50); Albumin Level 3.9 g/dL (3.5-5.1); Alkaline Phosphatase 85 U/L (38-126); Anion Gap 8 mmol/L (4-12); Aspartate Amino Transferase 51 U/L (17-59); Bilirubin,Total 0.9 mg/dL (0.2-1.3); Blood Urea Nitrogen 17 mg/dL (9-20); Calcium 9.5 mg/dL (8.4-10.2); Carbon Dioxide 27 mmol/L (22-30); Chloride 98 mmol/L (98-107); Estimated CRCL calculation 43 ml/min; Estimated Glomerular Filt Rate 38; Glucose 112 mg/dL (65-110); Magnesium 2.3 mg/dL (1.6-2.3); Potassium 3.8 mmol/L (3.4-5.0); Sodium 133 mmol/L (137-145); Total Protein 6.8 g/dL (6.3-8.2)
--- NOTE | 2025-04-08 05:10 | PC.NURSE ---
Pt has been running low grade fevers (100.8 - 99.9) the past 24 hours, treated with tylenol and cold compresses to forehead as needed. Pt continues to c/o pain in bilateral feet and numbness/tingling throughout body, providers aware. Pt continues to have increasing difficulty with all motor tasks, such as holding a cup, feeding himself, or assisting in any of his self care.
[2025-04-08] MEDS: LEVOTHYROXINE SODIUM 50 MCG TABLET PO (05:52)
[2025-04-08] MEDS: PREGABALIN (*CRX) 75 MG CAPSULE 150 MG PO ×3 (09:26→16:34)
[2025-04-08] MEDS: THIAMINE HCL 100 MG TABLET 500 MG PO (09:27)
[2025-04-08] MEDS: FOLIC ACID 1 MG TABLET PO (09:27)
[2025-04-08] MEDS: PANTOPRAZOLE 40 MG TABLET PO (09:27)
[2025-04-08] MEDS: BISACODYL 5 MG TABLET EC PO (09:27)
[2025-04-08] MEDS: lisinopriL 20 MG TABLET PO (09:27)
[2025-04-08] MEDS: ENOXAPARIN 40 MG/0.4 ML SYRINGE SUB-Q (09:28)
[2025-04-08 10:59] LABS: Lyme AB IgG, Immunoblot NO BANDS DETECTED; Lyme AB IgM, Immunoblot NO BANDS DETECTED
[2025-04-08 12:18] LABS: Immunoglobulin G, Serum 520
[2025-04-08 12:19] LABS: IgG Index, CSF 0.64
[2025-04-08 12:20] LABS: Albumin, CSF 84.2
--- NOTE | 2025-04-08 13:41 | PM.IMPN ---
Progress Note: A&P Assessment and Plan (1) Acute hypokalemia: Code(s): E87.6 - Hypokalemia Status: Acute (2) Acute hyponatremia: Code(s): E87.1 - Hypo-osmolality and hyponatremia Status: Acute (3) Hepatic steatosis: Code(s): K76.0 - Fatty (change of) liver, not elsewhere classified Status: Chronic (4) Generalized weakness: Code(s): R53.1 - Weakness Status: Acute (5) Heavy alcohol consumption: Code(s): F10.90 - Alcohol use, unspecified, uncomplicated Status: Chronic (6) Metabolic alkalosis with respiratory acidosis: Code(s): E87.4 - Mixed disorder of acid-base balance Status: Acute (7) Acute anemia: Code(s): D64.9 - Anemia, unspecified Status: Acute (8) Dysmetria: Code(s): R27.8 - Other lack of coordination Status: Acute (9) Abnormal lateral conjugate gaze: Code(s): H51.8 - Other specified disorders of binocular movement Status: Acute (10) Alcohol abuse: Code(s): F10.10 - Alcohol abuse, uncomplicated Status: Acute (11) Ataxia: Code(s): R27.0 - Ataxia, unspecified Status: Acute (12) Tobacco abuse: Code(s): Z72.0 - Tobacco use Status: Chronic Plan patient with long history of alcohol abuse, presented with twitching, his B12 level is normal, he is poor historian, patient is monitored with CIWA protocol, will continue Librium 25mg q6 for 1 days and then taper to q8 and monitor, increased lyrica to 150mg TID from 100mg TID and increase thiamin to 500mg daily from 100mg, on 04/06 gave Ativan 1mg IV x1, today patient is twitching less, and his clinical symptoms are improving, seen the patient the neurologist and examine the neurologist 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 will monitor, will have PT/OT evaluate the patient. Lower extremities weakness and numbness Alcohol neuropathy, stroke, cord compression vs electrolyte imbalance vs Wernicke's Korsakoff syndrome B12/folate wnl Patient is a heavy alcoholic, LAD was 3/7 MRI w/ow brain possible ischemic focus ECHO showed normal LV function , MRI total spine no acute findings CSF showed albuminocytologic dissociation, f/u cultures and PCRs Discussed with Dr Knowles, neurologist, noted he suspects Encephalitis in addition to alcohol withdrawal EEg pending PT/OT Neurology following Anemia Hb 9.8 Isat 77 monitor Hyponatremia, reoslved Na 133, Nephrology evaluated and noted that patient has chronci hyponatremia on currently within his baseline. monitor Alcohol abuse/withdrawal with hallucination CIWA, continue Thiamine and folate DVT prophylaxis on Sq lovenox Subjective Date/time seen: 04/08/25 13:41 Interval history: patient with long history of alcohol abuse, presented with twitching, his B12 level is normal, he is poor historian, patient is monitored with CIWA protocol, will continue Librium 25mg q6 for 1 days and then taper to q8 and monitor, increased lyrica to 150mg TID from 100mg TID and increase thiamin to 500mg daily from 100mg, on 04/06 gave Ativan 1mg IV x1, today patient is twitching less, and his clinical symptoms are improving, seen the patient the neurologist and examine the neurologist 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 will monitor, will have PT/OT evaluate the patient. Review of Systems Review of Systems: 12 systems were reviewed with pertinent positives and negatives per HPI. Except as documented in the HPI, all other systems were reviewed and are negative. Exam Narrative: Patient is comfortable, NAD HEENT: eyes are clear and none icteric LUNGS:CTA HEART: RR S1S2 ABD: BS+, Soft and nontender Lower extremities: no edema SKIN: nonjaundiced Neuro: grossly intact. twitching Objective Data Vital Signs Vital Signs: Vital Signs - 24 hr 04/07/25 15:53 04/07/25 16:00 04/07/25 20:00 Temperature 38.2 C H Pulse Rate 116 H 116 H Pulse Rate [Bilateral Radial Palpation] 111 H Respiratory Rate 20 Blood Pressure 123/83 Pulse Oximetry 95 Oxygen Delivery 04/07/25 20:00 04/07/25 20:00 04/07/25 20:17 Temperature 37.6 C H Pulse Rate 111 H 115 H Pulse Rate [Bilateral Radial Palpation] Respiratory Rate 18 Blood Pressure 121/84 Pulse Oximetry 96 Oxygen Delivery Room Air 04/07/25 20:44 04/07/25 21:44 04/07/25 23:49 Temperature 37.6 C H 37.1 C Pulse Rate Pulse Rate [Bilateral Radial Palpation] 110 H Respiratory Rate Blood Pressure Pulse Oximetry Oxygen Delivery 04/08/25 00:00 04/08/25 00:00 04/08/25 04:00 Temperature 37.9 C H Pulse Rate 108 H 109 H Pulse Rate [Bilateral Radial Palpation] 105 H Respiratory Rate 18 Blood Pressure 128/80 Pulse Oximetry 93 Oxygen Delivery 04/08/25 04:00 04/08/25 04:37 04/08/25 08:00 Temperature 36.6 C Pulse Rate 105 H 106 H Pulse Rate [Bilateral Radial Palpation] Respiratory Rate Blood Pressure Pulse Oximetry Oxygen Delivery 04/08/25 12:00 Temperature Pulse Rate 113 H Pulse Rate [Bilateral Radial Palpation] Respiratory Rate Blood Pressure Pulse Oximetry Oxygen Delivery Intake/Output Intake/Output: Intake & Output 04/05/25 04/06/25 04/07/25 04/08/25 23:59 23:59 23:59 23:59 Intake Total 908 2124 1224 1016 Output Total 575 0760 1600 450 Balance 333 874 -464 566 Meds/Results Medications: Active Medications Generic Name Dose Route Start Last Admin Trade Name Freq PRN Reason Stop Dose Admin Acetaminophen 650 mg 04/06/25 20:06 04/07/25 20:44 Acetaminophen 325 Mg Tablet PO 650 mg Q4H PRN Administration Mild Pain (1-3) or Fever Hydrocodone Bitart/Acetaminophen 1 tab 03/30/25 21:18 04/08/25 12:28 Hydrocodone/Acetaminophen (*Crx) 5-325 Mg Tablet PO 1 tab Q6H PRN Administration Pain Rated 7-10 Artificial Tears 1 drop 04/01/25 12:59 Artificial Tears Ophth Soln 15 Ml Bottle EACH EYE QID PRN Dry Eye(s) Bisacodyl 5 mg 04/04/25 09:00 04/08/25 09:27 Bisacodyl 5 Mg Tablet Ec PO 5 mg QAM [facility] Administration Chlordiazepoxide HCl 25 mg 04/08/25 12:35 Chlordiazepoxide (*Crx) 25 Mg Capsule PO Q6H PRN Withdrawal Enoxaparin Sodium 40 mg 04/01/25 09:00 04/08/25 09:28 Enoxaparin 40 Mg/0.4 Ml Syringe SUB-Q 40 mg DAILY [facility] Administration Folic Acid 1 mg 03/31/25 09:00 04/08/25 09:27 Folic Acid 1 Mg Tablet PO 1 mg DAILY [facility] Administration Levothyroxine Sodium 50 mcg 03/31/25 06:30 04/08/25 05:52 Levothyroxine Sodium 50 Mcg Tablet PO 50 mcg DAILY@0630 [facility] Administration Lisinopril 20 mg 03/31/25 09:00 04/08/25 09:27 Lisinopril 20 Mg Tablet PO 20 mg DAILY [facility] Administration Methocarbamol 750 mg 03/31/25 02:49 04/07/25 20:36 Methocarbamol 750 Mg Tablet PO 750 mg TID PRN Administration muscle spasm Ondansetron HCl 4 mg 03/30/25 17:24 Ondansetron Inj 4 Mg/2 Ml Vial IV PUSH Q4H PRN Nausea Pantoprazole Sodium 40 mg 03/31/25 09:00 04/08/25 09:27 Pantoprazole 40 Mg Tablet PO 40 mg QAM [facility] Administration Polyethylene Glycol 17 gm 04/03/25 11:59 Polyethylene Glycol 3350 17 Gm Powd.Pack PO DAILY PRN Constipation Pregabalin 150 mg 04/06/25 17:00 04/08/25 12:23 Pregabalin (*Crx) 75 Mg Capsule PO 150 mg TID [facility] Administration Thiamine HCl 500 mg 04/06/25 13:00 04/08/25 09:27 Thiamine Hcl 100 Mg Tablet PO 500 mg QAM [facility] Administration Radiology Results: ITS Impressions Chest X-Ray 03/30/25 14:28 Impression: 1: Left basilar atelectasis. Head CT 03/30/25 14:51 IMPRESSION: 1. No acute intracranial process. Abdomen/Pelvis CT 03/30/25 16:42 IMPRESSION: 1. No acute intra-abdominal/pelvic process. 2. Mild diffuse bladder wall thickening and small posterior bladder diverticulum suggestive of sequela of chronic outlet obstruction Brain MRI 04/01/25 16:35 IMPRESSION: 1. Small focus in the right frontal lobe white matter most likely ischemic. 2. No evidence of acute intracranial process. 3. No abnormal enhancement. Lumbar Puncture Fluoroscopy 04/02/25 15:46 IMPRESSION: 1. Successful fluoro-guided lumbar puncture with elevated opening pressure of 29 cm water. Cervical Spine MRI 04/04/25 13:10 IMPRESSION: 1. Moderate to severely limited study due to motion artifact. 2. Mild to moderate cervical spondylosis with only minimal central canal stenosis. 3. No evident cord signal abnormalities or abnormally enhancing lesions identified. Thoracic Spine MRI 04/04/25 13:19 IMPRESSION: 1. Mild thoracic spondylosis. 2. No definitive cord signal abnormalities or abnormally enhancing lesions. Evaluation of cord signal is however moderately limited by motion artifact and relatively mild on the sagittal images but moderate severity on the axial imaging. Lumbar Spine MRI 04/04/25 13:27 IMPRESSION: 1. Mild lumbar spondylosis with instrumented L3-S1 anterior spinal fusion. Labs Labs: Laboratory Results - last 24 hr 04/02/25 04/02/25 04/08/25 13:06 15:29 04:14 WBC 6.7 RBC 3.51 L Hgb 10.6 L Hct 31.9 L MCV 90.9 MCH 30.2 MCHC 33.2 RDW 14.9 H Plt Count 229 MPV 10.8 H Sodium 133 L Potassium 3.8 Chloride 98 Carbon Dioxide 27 Anion Gap 8 BUN 17 Creatinine 1.88 H Estim Creat Clear Calc 43 Estimated GFR 38 L Glucose 112 H Calcium 9.5 Magnesium 2.3 Total Bilirubin 0.9 AST 51 ALT 44 Alkaline Phosphatase 85 Total Protein 6.8 Albumin 3.1 3.9 CSF Albumin (MS) 84.2 CSF IgG (MS) 9.0 Serum IgG (MS) 520 CSF IgG Index (MS) 0.64 CSF IgG Synth Rate MS +12.7 CSF Lyme IgG (Immblot) No bands detected CSF Lyme IgM (Immblot) No bands detected Cryptococcus Source Cerebrospinal fluid Cryptococcus Ag Not detected Quality VTE Prophylaxis VTE prophylaxis: mechanical ordered (SCDs)
--- NOTE | 2025-04-08 13:51 | PCNFU ---
Nutrition Follow-Up Complete: Inadequate oral intake related to loss of appetite as evidenced by intakes 0-10% PO intake as tolerated - Slow progress. continue with same goal Goal: Pt current nutrition is Heart healthy diet, minced&moist L5. Ensure Enlive TID (350 kcal, 20 g protein). Nutrition recommendation: No new recommendations. Continue current nutrition care plan and orders Last recorded weight is 90.2 kg. Bowel Motility: No BMs are charted. May need bowel regimen Labs Reviewed: Hgb 10.7, Hct 31.9, Na 133, Cre 1.88, Glu 112 Meds Noted: Folic acid, protonix, lovenox Skin: No skin issues Additional Notes: Pt still not eating much solid food and mostly only drinking Ensure. Not able to feed self. Continue current nutrition care plan and orders. Monitoring intakes, weights, labs, supplement tolerance, plan of care Follow up in 3 days
--- NOTE | 2025-04-08 14:25 | WPDNEUROPN ---
Progress Note: A&P Assessment and Plan (1) Alcohol withdrawal syndrome: Code(s): F10.939 - Alcohol use, unspecified with withdrawal, unspecified Status: Acute (2) Peripheral neuropathy: Code(s): G62.9 - Polyneuropathy, unspecified Status: Acute Plan the patient is improving. I noted the acyclovir has been discontinued however he is on Librium which is helping him. I would suggest serum ammonia level. I discussed with the hospitalist team regarding the high protein in the CSF and opening pressure being high although his cell count was normal. Sometimes cell count could be on the rise and a a follow-up study may be only way to find it but clinically he seems to be getting better and hence the supportive care can continue. His creatinine was also high today at 1.88. Previous serum ammonia level was less than 9. His liver enzymes were moderately elevated when he 1st came in but they have normalized now. Has continued observation supportive care is recommended. Subjective Date/time seen: 04/08/25 14:25 Interval history: Patient is 49-year-old with alcohol withdrawal syndrome currently on Librium 25 mg 4 times a day. He is better than what he was 3 days ago when I saw him. The patient denies any headache or nausea or vomiting. He has numbness in his both hands and both feet as before. He has not had any seizure-like activity. Review of Systems Review of Systems: All systems reviewed & are unremarkable except as noted in HPI and below Exam Narrative: Fully conscious alert, no aphasia or dysarthria however appears to have rather flat affect. A cervix 6 were noted however they are less pronounced than what they were like 3 days ago. Examination cranial nerves and motor system was unremarkable Objective Data Vital Signs Vital Signs: Vital Signs - 24 hr 04/07/25 15:53 04/07/25 16:00 04/07/25 20:00 Temperature 100.8 F H Pulse Rate 116 H 116 H Pulse Rate [Bilateral Radial Palpation] 111 H Respiratory Rate 20 Blood Pressure 123/83 Pulse Oximetry 95 Oxygen Delivery 04/07/25 20:00 04/07/25 20:00 04/07/25 20:17 Temperature 99.7 F H Pulse Rate 111 H 115 H Pulse Rate [Bilateral Radial Palpation] Respiratory Rate 18 Blood Pressure 121/84 Pulse Oximetry 96 Oxygen Delivery Room Air 04/07/25 20:44 04/07/25 21:44 04/07/25 23:49 Temperature 99.7 F H 98.8 F Pulse Rate Pulse Rate [Bilateral Radial Palpation] 110 H Respiratory Rate Blood Pressure Pulse Oximetry Oxygen Delivery 04/08/25 00:00 04/08/25 00:00 04/08/25 04:00 Temperature 100.3 F H Pulse Rate 108 H 109 H Pulse Rate [Bilateral Radial Palpation] 105 H Respiratory Rate 18 Blood Pressure 128/80 Pulse Oximetry 93 Oxygen Delivery 04/08/25 04:00 04/08/25 04:37 04/08/25 08:00 Temperature 97.8 F Pulse Rate 105 H 106 H Pulse Rate [Bilateral Radial Palpation] Respiratory Rate Blood Pressure Pulse Oximetry Oxygen Delivery 04/08/25 12:00 Temperature Pulse Rate 113 H Pulse Rate [Bilateral Radial Palpation] Respiratory Rate Blood Pressure Pulse Oximetry Oxygen Delivery Intake/Output Intake/Output: Intake & Output 04/05/25 04/06/25 04/07/25 04/08/25 23:59 23:59 23:59 23:59 Intake Total 908 2124 1224 1016 Output Total 575 1250 1600 450 Balance 333 874 -376 566 Meds/Results Medications: Active Medications Generic Name Dose Route Start Last Admin Trade Name Freq PRN Reason Stop Dose Admin Acetaminophen 650 mg 04/06/25 20:06 04/07/25 20:44 Acetaminophen 325 Mg Tablet PO 650 mg Q4H PRN Administration Mild Pain (1-3) or Fever Hydrocodone Bitart/Acetaminophen 1 tab 03/30/25 21:18 04/08/25 12:28 Hydrocodone/Acetaminophen (*Crx) 5-325 Mg Tablet PO 1 tab Q6H PRN Administration Pain Rated 7-10 Artificial Tears 1 drop 04/01/25 12:59 Artificial Tears Ophth Soln 15 Ml Bottle EACH EYE QID PRN Dry Eye(s) Bisacodyl 5 mg 04/04/25 09:00 04/08/25 09:27 Bisacodyl 5 Mg Tablet Ec PO 5 mg QAM BRYON Administration Chlordiazepoxide HCl 25 mg 04/08/25 12:35 Chlordiazepoxide (*Crx) 25 Mg Capsule PO Q6H PRN Withdrawal Enoxaparin Sodium 40 mg 04/01/25 09:00 04/08/25 09:28 Enoxaparin 40 Mg/0.4 Ml Syringe SUB-Q 40 mg DAILY BRYON Administration Folic Acid 1 mg 03/31/25 09:00 04/08/25 09:27 Folic Acid 1 Mg Tablet PO 1 mg DAILY BRYON Administration Acyclovir Sodium 900 mg/ 268 mls @ 250 mls/hr 04/08/25 21:00 Dextrose IVPB Q12HR [facility] Levothyroxine Sodium 50 mcg 03/31/25 06:30 04/08/25 05:52 Levothyroxine Sodium 50 Mcg Tablet PO 50 mcg DAILY@0630 BRYON Administration Lisinopril 20 mg 03/31/25 09:00 04/08/25 09:27 Lisinopril 20 Mg Tablet PO 20 mg DAILY [facility] Administration Methocarbamol 750 mg 03/31/25 02:49 04/07/25 20:36 Methocarbamol 750 Mg Tablet PO 750 mg TID PRN Administration muscle spasm Ondansetron HCl 4 mg 03/30/25 17:24 Ondansetron Inj 4 Mg/2 Ml Vial IV PUSH Q4H PRN Nausea Pantoprazole Sodium 40 mg 03/31/25 09:00 04/08/25 09:27 Pantoprazole 40 Mg Tablet PO 40 mg QAM BRYON Administration Polyethylene Glycol 17 gm 04/03/25 11:59 Polyethylene Glycol 3350 17 Gm Powd.Pack PO DAILY PRN Constipation Pregabalin 150 mg 04/06/25 17:00 04/08/25 12:23 Pregabalin (*Crx) 75 Mg Capsule PO 150 mg TID [facility] Administration Thiamine HCl 500 mg 04/06/25 13:00 04/08/25 09:27 Thiamine Hcl 100 Mg Tablet PO 500 mg QAM BRYON Administration Radiology Results: ITS Impressions Chest X-Ray 03/30/25 14:28 Impression: 1: Left basilar atelectasis. Head CT 03/30/25 14:51 IMPRESSION: 1. No acute intracranial process. Abdomen/Pelvis CT 03/30/25 16:42 IMPRESSION: 1. No acute intra-abdominal/pelvic process. 2. Mild diffuse bladder wall thickening and small posterior bladder diverticulum suggestive of sequela of chronic outlet obstruction Brain MRI 04/01/25 16:35 IMPRESSION: 1. Small focus in the right frontal lobe white matter most likely ischemic. 2. No evidence of acute intracranial process. 3. No abnormal enhancement. Lumbar Puncture Fluoroscopy 04/02/25 15:46 IMPRESSION: 1. Successful fluoro-guided lumbar puncture with elevated opening pressure of 29 cm water. Cervical Spine MRI 04/04/25 13:10 IMPRESSION: 1. Moderate to severely limited study due to motion artifact. 2. Mild to moderate cervical spondylosis with only minimal central canal stenosis. 3. No evident cord signal abnormalities or abnormally enhancing lesions identified. Thoracic Spine MRI 04/04/25 13:19 IMPRESSION: 1. Mild thoracic spondylosis. 2. No definitive cord signal abnormalities or abnormally enhancing lesions. Evaluation of cord signal is however moderately limited by motion artifact and relatively mild on the sagittal images but moderate severity on the axial imaging. Lumbar Spine MRI 04/04/25 13:27 IMPRESSION: 1. Mild lumbar spondylosis with instrumented L3-S1 anterior spinal fusion. Labs Labs: Laboratory Results - last 24 hr 04/02/25 04/02/25 04/08/25 13:06 15:29 04:14 WBC 6.7 RBC 3.51 L Hgb 10.6 L Hct 31.9 L MCV 90.9 MCH 30.2 MCHC 33.2 RDW 14.9 H Plt Count 229 MPV 10.8 H Sodium 133 L Potassium 3.8 Chloride 98 Carbon Dioxide 27 Anion Gap 8 BUN 17 Creatinine 1.88 H Estim Creat Clear Calc 43 Estimated GFR 38 L Glucose 112 H Calcium 9.5 Magnesium 2.3 Total Bilirubin 0.9 AST 51 ALT 44 Alkaline Phosphatase 85 Total Protein 6.8 Albumin 3.1 3.9 CSF Albumin (MS) 84.2 CSF IgG (MS) 9.0 Serum IgG (MS) 520 CSF IgG Index (MS) 0.64 CSF IgG Synth Rate MS +12.7 CSF Lyme IgG (Immblot) No bands detected CSF Lyme IgM (Immblot) No bands detected Cryptococcus Source Cerebrospinal fluid Cryptococcus Ag Not detected
[2025-04-08 16:02] LABS: Source CEREBROSPINAL FLUID
[2025-04-08 23:18] LABS: Albumin, Serum 3.1 g/dL (3.6-5.1); Myelin Basic Protein, CSF <2.0 mcg/L (< OR = 4.0); Oligoclonal Bands (IgG), CSF ABSENT (ABSENT)
[2025-04-09] VITALS (11 sets, daily range): BP systolic 111–133; BP diastolic 64–90; PULSE 103–121; RESP 16–18; TEMP 36.5–36.8; O2SAT 92–96
[2025-04-09] MEDS: LEVOTHYROXINE SODIUM 50 MCG TABLET PO (05:45)
[2025-04-09 06:20] LABS: Hematocrit 30.1 % (42.0-52.0); Mean Corpuscular HGB Conc 33.2 g/dl (32-36); Mean Corpuscular Hemoglobin 30.1 pg (26-34); Mean Corpuscular Volume 90.7 fl (80-100); Mean Platelet Volume 10.9 fl (7.4-10.4); Platelet Count Result 259 k/mm3 (150-375); Red Blood Count 3.32 M/mm3 (4.6-6.20); Red Cell Distribution Width 15.2 % (11.5-14.5)
[2025-04-09 06:28] LABS: Alanine Aminotransferase 34 U/L (6-50); Albumin Level 3.8 g/dL (3.5-5.1); Alkaline Phosphatase 83 U/L (38-126); Anion Gap 9 mmol/L (4-12); Aspartate Amino Transferase 40 U/L (17-59); Bilirubin,Total 0.7 mg/dL (0.2-1.3); Blood Urea Nitrogen 28 mg/dL (9-20); Calcium 9.4 mg/dL (8.4-10.2); Carbon Dioxide 27 mmol/L (22-30); Chloride 98 mmol/L (98-107); Estimated CRCL calculation 28 ml/min; Estimated Glomerular Filt Rate 23; Glucose 113 mg/dL (65-110); Magnesium 2.4 mg/dL (1.6-2.3); Potassium 4.1 mmol/L (3.4-5.0); Sodium 134 mmol/L (137-145); Total Protein 6.8 g/dL (6.3-8.2)
[2025-04-09 08:59] LABS: West Nile Virus, IgM <0.90 index
[2025-04-09] MEDS: FOLIC ACID 1 MG TABLET PO (09:01)
[2025-04-09] MEDS: PREGABALIN (*CRX) 75 MG CAPSULE 150 MG PO ×3 (09:01→16:00)
[2025-04-09] MEDS: PANTOPRAZOLE 40 MG TABLET PO (09:01)
[2025-04-09] MEDS: lisinopriL 20 MG TABLET PO (09:02)
[2025-04-09] MEDS: ENOXAPARIN 40 MG/0.4 ML SYRINGE SUB-Q (09:02)
[2025-04-09] MEDS: BISACODYL 5 MG TABLET EC PO (09:02)
[2025-04-09] MEDS: THIAMINE HCL 100 MG TABLET 500 MG PO (09:02)
[2025-04-09] MEDS: ACYCLOVIR SODIUM IVPB 900 MG in DEXTROSE 5% IN WATER 250 ML 250 MG IVPB ×2 (09:02→20:04)
[2025-04-09] MEDS: HYDROcodone/acetaminophen (*CRX) 5-325 MG TABLET 1 TAB PO ×2 (09:07→16:01)
[2025-04-09] MEDS: SODIUM CHLORIDE 0.9% IV 1,000 ML 125 ML IV CONT ×2 (12:08→20:04)
--- NOTE | 2025-04-09 14:01 | P.PNIM_ITS ---
Progress Note: A&P Assessment and Plan (1) Acute hypokalemia: Code(s): E87.6 - Hypokalemia Status: Acute (2) Acute hyponatremia: Code(s): E87.1 - Hypo-osmolality and hyponatremia Status: Acute (3) Hepatic steatosis: Code(s): K76.0 - Fatty (change of) liver, not elsewhere classified Status: Chronic (4) Generalized weakness: Code(s): R53.1 - Weakness Status: Acute (5) Heavy alcohol consumption: Code(s): F10.90 - Alcohol use, unspecified, uncomplicated Status: Chronic (6) Metabolic alkalosis with respiratory acidosis: Code(s): E87.4 - Mixed disorder of acid-base balance Status: Acute (7) Acute anemia: Code(s): D64.9 - Anemia, unspecified Status: Acute (8) Dysmetria: Code(s): R27.8 - Other lack of coordination Status: Acute (9) Abnormal lateral conjugate gaze: Code(s): H51.8 - Other specified disorders of binocular movement Status: Acute (10) Alcohol abuse: Code(s): F10.10 - Alcohol abuse, uncomplicated Status: Acute (11) Ataxia: Code(s): R27.0 - Ataxia, unspecified Status: Acute (12) Tobacco abuse: Code(s): Z72.0 - Tobacco use Status: Chronic Plan patient with long history of alcohol abuse, presented with twitching, his B12 level is normal, he is poor historian, patient is monitored with CIWA protocol, will continue Librium 25mg q6 for 1 days and then taper to q8 and monitor, increased lyrica to 150mg TID from 100mg TID and increase thiamin to 500mg daily from 100mg, on 04/06 gave Ativan 1mg IV x1, today patient is twitching less, and his clinical symptoms are improving, seen the patient the neurologist and examine the neurologist 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 today patient BUN and Scr have to risen to 28/2.91 will monitor, patient is not drinking enough fluids, will patient IVF, will encourage to increase fluids intake, will do renal US, will have PT/OT evaluate the patient. Lower extremities weakness and numbness Alcohol neuropathy, stroke, cord compression vs electrolyte imbalance vs Wernicke's Korsakoff syndrome B12/folate wnl Patient is a heavy alcoholic, LAD was 3/7 MRI w/ow brain possible ischemic focus ECHO showed normal LV function , MRI total spine no acute findings CSF showed albuminocytologic dissociation, f/u cultures and PCRs Discussed with Dr Knowles, neurologist, noted he suspects Encephalitis in addition to alcohol withdrawal EEg pending PT/OT Neurology following Anemia Hb 9.8 Isat 77 monitor Hyponatremia, reoslved Na 133, Nephrology evaluated and noted that patient has chronci hyponatremia on currently within his baseline. monitor Alcohol abuse/withdrawal with hallucination CIWA, continue Thiamine and folate DVT prophylaxis on Sq lovenox Subjective Date/time seen: 04/09/25 14:01 Interval history: patient with long history of alcohol abuse, presented with twitching, his B12 level is normal, he is poor historian, patient is monitored with CIWA protocol, will continue Librium 25mg q6 for 1 days and then taper to q8 and monitor, increased lyrica to 150mg TID from 100mg TID and increase thiamin to 500mg daily from 100mg, on 04/06 gave Ativan 1mg IV x1, today patient is twitching less, and his clinical symptoms are improving, seen the patient the neurologist and examine the neurologist 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 today patient BUN and Scr have to risen to 28/2.91 will monitor, patient is not drinking enough fluids, will patient IVF, will encourage to increase fluids intake, will do renal US, will have PT/OT evaluate the patient. Review of Systems Review of Systems: 12 systems were reviewed with pertinent positives and negatives per HPI. Except as documented in the HPI, all other systems were reviewed and are negative. Exam Narrative: Patient is comfortable, NAD HEENT: eyes are clear and none icteric LUNGS:CTA HEART: RR S1S2 ABD: BS+, Soft and nontender Lower extremities: no edema SKIN: nonjaundiced Neuro: grossly intact. twitching Objective Data Vital Signs Vital Signs: Vital Signs - 24 hr 04/08/25 14:54 04/08/25 16:00 04/08/25 20:00 Temperature 36.6 C Pulse Rate 107 H 108 H Pulse Rate [Bilateral Radial Palpation] 110 H Respiratory Rate 18 Blood Pressure 143/89 H Pulse Oximetry 96 Oxygen Delivery Fraction of Inspired Oxygen 04/08/25 20:02 04/08/25 20:34 04/08/25 20:50 Temperature 37.0 C Pulse Rate 111 H 117 H 117 H Pulse Rate [Bilateral Radial Palpation] Respiratory Rate 17 17 Blood Pressure 100/60 Pulse Oximetry 17 L 97 Oxygen Delivery Room Air Fraction of Inspired Oxygen 21 04/08/25 21:00 04/09/25 00:00 04/09/25 00:02 Temperature Pulse Rate 121 H Pulse Rate [Bilateral Radial Palpation] 121 H Respiratory Rate Blood Pressure Pulse Oximetry 97 Oxygen Delivery Room Air Fraction of Inspired Oxygen 04/09/25 04:00 04/09/25 04:00 04/09/25 04:41 Temperature 36.5 C Pulse Rate 114 H 113 H Pulse Rate [Bilateral Radial Palpation] 114 H Respiratory Rate 16 Blood Pressure 114/73 Pulse Oximetry 92 Oxygen Delivery Fraction of Inspired Oxygen 04/09/25 08:00 04/09/25 12:00 Temperature Pulse Rate 107 H 110 H Pulse Rate [Bilateral Radial Palpation] Respiratory Rate Blood Pressure Pulse Oximetry Oxygen Delivery Fraction of Inspired Oxygen Intake/Output Intake/Output: Intake & Output 04/06/25 04/07/25 04/08/25 04/09/25 23:59 23:59 23:59 23:59 Intake Total 2124 1224 1524 368 Output Total 1250 1600 1000 350 Balance 874 -376 524 18 Meds/Results Medications: Active Medications Generic Name Dose Route Start Last Admin Trade Name Freq PRN Reason Stop Dose Admin Acetaminophen 650 mg 04/06/25 20:06 04/07/25 20:44 Acetaminophen 325 Mg Tablet PO 650 mg Q4H PRN Administration Mild Pain (1-3) or Fever Hydrocodone Bitart/Acetaminophen 1 tab 03/30/25 21:18 04/09/25 09:07 Hydrocodone/Acetaminophen (*Crx) 5-325 Mg Tablet PO 1 tab Q6H PRN Administration Pain Rated 7-10 Artificial Tears 1 drop 04/01/25 12:59 Artificial Tears Ophth Soln 15 Ml Bottle EACH EYE QID PRN Dry Eye(s) Bisacodyl 5 mg 04/04/25 09:00 04/09/25 09:02 Bisacodyl 5 Mg Tablet Ec PO 5 mg QAM BRYON Administration Chlordiazepoxide HCl 25 mg 04/08/25 12:35 Chlordiazepoxide (*Crx) 25 Mg Capsule PO Q6H PRN Withdrawal Enoxaparin Sodium 40 mg 04/01/25 09:00 04/09/25 09:02 Enoxaparin 40 Mg/0.4 Ml Syringe SUB-Q 40 mg DAILY BRYON Administration Folic Acid 1 mg 03/31/25 09:00 04/09/25 09:01 Folic Acid 1 Mg Tablet PO 1 mg DAILY BRYON Administration Acyclovir Sodium 900 mg/ 268 mls @ 250 mls/hr 04/08/25 21:00 04/09/25 10:07 Dextrose IVPB Infused Q12HR BRYON Infusion Sodium Chloride 1,000 mls @ 125 mls/hr 04/09/25 11:00 04/09/25 12:08 Normal Saline Iv IV CONT 125 mls/hr .Q8H BRYON Administration Levothyroxine Sodium 50 mcg 03/31/25 06:30 04/09/25 05:45 Levothyroxine Sodium 50 Mcg Tablet PO 50 mcg DAILY@0630 BRYON Administration Lisinopril 20 mg 03/31/25 09:00 04/09/25 09:02 Lisinopril 20 Mg Tablet PO 20 mg DAILY BRYON Administration Methocarbamol 750 mg 03/31/25 02:49 04/07/25 20:36 Methocarbamol 750 Mg Tablet PO 750 mg TID PRN Administration muscle spasm Miscellaneous Information 0 each 04/08/25 00:01 04/09/25 08:19 Please Renew Triangle. Per [employer] Procedure, It Will Discontinue If Not Renewed XX 05/08/25 00:00 Not Given CLARIFY BRYON Ondansetron HCl 4 mg 03/30/25 17:24 Ondansetron Inj 4 Mg/2 Ml Vial IV PUSH Q4H PRN Nausea Pantoprazole Sodium 40 mg 03/31/25 09:00 04/09/25 09:01 Pantoprazole 40 Mg Tablet PO 40 mg QAM BRYON Administration Polyethylene Glycol 17 gm 04/03/25 11:59 Polyethylene Glycol 3350 17 Gm Powd.Pack PO DAILY PRN Constipation Pregabalin 150 mg 04/06/25 17:00 04/09/25 12:08 Pregabalin (*Crx) 75 Mg Capsule PO 150 mg TID BRYON Administration Thiamine HCl 500 mg 04/06/25 13:00 04/09/25 09:02 Thiamine Hcl 100 Mg Tablet PO 500 mg QAM BRYON Administration Radiology Results: ITS Impressions Chest X-Ray 03/30/25 14:28 Impression: 1: Left basilar atelectasis. Head CT 03/30/25 14:51 IMPRESSION: 1. No acute intracranial process. Abdomen/Pelvis CT 03/30/25 16:42 IMPRESSION: 1. No acute intra-abdominal/pelvic process. 2. Mild diffuse bladder wall thickening and small posterior bladder diverticulum suggestive of sequela of chronic outlet obstruction Brain MRI 04/01/25 16:35 IMPRESSION: 1. Small focus in the right frontal lobe white matter most likely ischemic. 2. No evidence of acute intracranial process. 3. No abnormal enhancement. Lumbar Puncture Fluoroscopy 04/02/25 15:46 IMPRESSION: 1. Successful fluoro-guided lumbar puncture with elevated opening pressure of 29 cm water. Cervical Spine MRI 04/04/25 13:10 IMPRESSION: 1. Moderate to severely limited study due to motion artifact. 2. Mild to moderate cervical spondylosis with only minimal central canal stenosis. 3. No evident cord signal abnormalities or abnormally enhancing lesions identified. Thoracic Spine MRI 04/04/25 13:19 IMPRESSION: 1. Mild thoracic spondylosis. 2. No definitive cord signal abnormalities or abnormally enhancing lesions. Evaluation of cord signal is however moderately limited by motion artifact and relatively mild on the sagittal images but moderate severity on the axial imaging. Lumbar Spine MRI 04/04/25 13:27 IMPRESSION: 1. Mild lumbar spondylosis with instrumented L3-S1 anterior spinal fusion. Labs Labs: Laboratory Results - last 24 hr 04/02/25 04/02/25 04/09/25 13:06 15:29 05:53 WBC 7.0 RBC 3.32 L Hgb 10.0 L Hct 30.1 L MCV 90.7 MCH 30.1 MCHC 33.2 RDW 15.2 H Plt Count 259 MPV 10.9 H Sodium 134 L Potassium 4.1 Chloride 98 Carbon Dioxide 27 Anion Gap 9 BUN 28 H D Creatinine 2.91 H Estim Creat Clear Calc 28 Estimated GFR 23 L Glucose 113 H Calcium 9.4 Magnesium 2.4 H Total Bilirubin 0.7 AST 40 ALT 34 Alkaline Phosphatase 83 Total Protein 6.8 Albumin 3.1 L 3.8 CSF Source Cerebrospinal fluid CSF Lactic Acid 21.4 CSF IgG Oligo Bnd (MS) Absent CSF Myelin Bsc Prot MS <2.0 CSF West Nile RNA Not detected West Nile Virus IgM Ab <0.90 Quality VTE Prophylaxis VTE prophylaxis: mechanical ordered (SCDs)
--- NOTE | 2025-04-09 14:13 | PCPTNOTE ---
Patient declined PT stating he worked with OT earlier today and just returned to bed a few minutes ago. Patint states he is too fatigued to participate in PT today. PT will continue to follow per plan of care.
[2025-04-10] VITALS (8 sets, daily range): BP systolic 131–139; BP diastolic 87–98; PULSE 100–108; RESP 16–18; TEMP 37–37.7; O2SAT 94–97
[2025-04-10] MEDS: chlordiazePOXIDE (*CRX) 25 MG CAPSULE PO ×3 (00:37→14:48)
[2025-04-10 05:04] LABS: Hematocrit 28.7 % (42.0-52.0); Hemoglobin 9.3 g/dL (14.0-18.0); Mean Corpuscular HGB Conc 32.4 g/dl (32-36); Mean Corpuscular Hemoglobin 29.9 pg (26-34); Mean Corpuscular Volume 92.3 fl (80-100); Mean Platelet Volume 10.5 fl (7.4-10.4); Platelet Count Result 244 k/mm3 (150-375); Red Blood Count 3.11 M/mm3 (4.6-6.20); Red Cell Distribution Width 15.3 % (11.5-14.5); White Blood Count 5.8 K/mm3 (4.5-10.0)
[2025-04-10] MEDS: SODIUM CHLORIDE 0.9% IV 1,000 ML 125 ML IV CONT ×2 (05:07→16:07)
[2025-04-10] MEDS: LEVOTHYROXINE SODIUM 50 MCG TABLET PO (05:07)
[2025-04-10 05:24] LABS: Alanine Aminotransferase 37 U/L (6-50); Albumin Level 3.7 g/dL (3.5-5.1); Alkaline Phosphatase 81 U/L (38-126); Anion Gap 9 mmol/L (4-12); Aspartate Amino Transferase 49 U/L (17-59); Bilirubin,Total 0.7 mg/dL (0.2-1.3); Blood Urea Nitrogen 26 mg/dL (9-20); Calcium 8.9 mg/dL (8.4-10.2); Carbon Dioxide 24 mmol/L (22-30); Chloride 101 mmol/L (98-107); Estimated CRCL calculation 40 ml/min; Estimated Glomerular Filt Rate 35; Glucose 108 mg/dL (65-110); Magnesium 2.2 mg/dL (1.6-2.3); Potassium 4.3 mmol/L (3.4-5.0); Sodium 134 mmol/L (137-145); Total Protein 6.6 g/dL (6.3-8.2)
[2025-04-10] MEDS: PREGABALIN (*CRX) 75 MG CAPSULE 150 MG PO ×3 (08:54→17:48)
[2025-04-10] MEDS: PANTOPRAZOLE 40 MG TABLET PO (08:54)
[2025-04-10] MEDS: FOLIC ACID 1 MG TABLET PO (08:54)
[2025-04-10] MEDS: lisinopriL 20 MG TABLET PO (08:54)
[2025-04-10] MEDS: ENOXAPARIN 40 MG/0.4 ML SYRINGE SUB-Q (08:54)
[2025-04-10] MEDS: THIAMINE HCL 100 MG TABLET 500 MG PO (08:55)
[2025-04-10] MEDS: ACYCLOVIR SODIUM IVPB 900 MG in DEXTROSE 5% IN WATER 250 ML 250 MG IVPB ×2 (08:55→21:38)
[2025-04-10] MEDS: BISACODYL 5 MG TABLET EC PO (08:56)
[2025-04-10] MEDS: HYDROcodone/acetaminophen (*CRX) 5-325 MG TABLET 1 TAB PO ×2 (09:04→17:48)
--- NOTE | 2025-04-10 13:16 | PM.IMPN ---
Progress Note: A&P Assessment and Plan (1) Acute hypokalemia: Code(s): E87.6 - Hypokalemia Status: Acute (2) Acute hyponatremia: Code(s): E87.1 - Hypo-osmolality and hyponatremia Status: Acute (3) Hepatic steatosis: Code(s): K76.0 - Fatty (change of) liver, not elsewhere classified Status: Chronic (4) Generalized weakness: Code(s): R53.1 - Weakness Status: Acute (5) Heavy alcohol consumption: Code(s): F10.90 - Alcohol use, unspecified, uncomplicated Status: Chronic (6) Metabolic alkalosis with respiratory acidosis: Code(s): E87.4 - Mixed disorder of acid-base balance Status: Acute (7) Acute anemia: Code(s): D64.9 - Anemia, unspecified Status: Acute (8) Dysmetria: Code(s): R27.8 - Other lack of coordination Status: Acute (9) Abnormal lateral conjugate gaze: Code(s): H51.8 - Other specified disorders of binocular movement Status: Acute (10) Alcohol abuse: Code(s): F10.10 - Alcohol abuse, uncomplicated Status: Acute (11) Ataxia: Code(s): R27.0 - Ataxia, unspecified Status: Acute (12) Tobacco abuse: Code(s): Z72.0 - Tobacco use Status: Chronic Plan patient with long history of alcohol abuse, presented with twitching, his B12 level is normal, he is poor historian, patient is monitored with CIWA protocol, will continue Librium 25mg q6 for 1 days and then taper to q8 and monitor, increased lyrica to 150mg TID from 100mg TID and increase thiamin to 500mg daily from 100mg, on 04/06 gave Ativan 1mg IV x1, today patient is twitching less, and his clinical symptoms are improving, seen the patient the neurologist and examine the neurologist 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 on 04/09 patient BUN and Scr were risen to 28/2.91 patient was started on IVF 125cc/hr his BUN and Scr are trending down to 26/2.01, will monitor, patient is encorage to increase fluids intake, will do renal US, today called his gave update, patient is not motivated to participate in PT, will start antidepressant Celexa 10mg PO qd, will have PT/OT evaluate the patient. Alcohol neuropathy, stroke, cord compression vs electrolyte imbalance vs Wernicke's Korsakoff syndrome B12/folate wnl Patient is a heavy alcoholic, LAD was 3/7 MRI w/ow brain possible ischemic focus ECHO showed normal LV function , MRI total spine no acute findings CSF showed albuminocytologic dissociation, f/u cultures and PCRs Discussed with Dr Knowles, neurologist, noted he suspects Encephalitis in addition to alcohol withdrawal EEg pending PT/OT Neurology following Anemia Hb 9.8 Isat 77 monitor Hyponatremia, reoslved Na 133, Nephrology evaluated and noted that patient has chronci hyponatremia on currently within his baseline. monitor Alcohol abuse/withdrawal with hallucination CIWA, continue Thiamine and folate DVT prophylaxis on Sq lovenox Subjective Date/time seen: 04/10/25 13:16 Interval history: patient with long history of alcohol abuse, presented with twitching, his B12 level is normal, he is poor historian, patient is monitored with CIWA protocol, will continue Librium 25mg q6 for 1 days and then taper to q8 and monitor, increased lyrica to 150mg TID from 100mg TID and increase thiamin to 500mg daily from 100mg, on 04/06 gave Ativan 1mg IV x1, today patient is twitching less, and his clinical symptoms are improving, seen the patient the neurologist and examine the neurologist 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 on 04/09 patient BUN and Scr were risen to 28/2.91 patient was started on IVF 125cc/hr his BUN and Scr are trending down to 26/2.01, will monitor, patient is encorage to increase fluids intake, will do renal US, today called his gave update, patient is not motivated to participate in PT, will start antidepressant Celexa 10mg PO qd, will have PT/OT evaluate the patient. Review of Systems Review of Systems: 12 systems were reviewed with pertinent positives and negatives per HPI. Except as documented in the HPI, all other systems were reviewed and are negative. Exam Narrative: Patient is comfortable, NAD HEENT: eyes are clear and none icteric LUNGS:CTA HEART: RR S1S2 ABD: BS+, Soft and nontender Lower extremities: no edema SKIN: nonjaundiced Neuro: grossly intact. twitching Objective Data Vital Signs Vital Signs: Vital Signs - 24 hr 04/09/25 15:37 04/09/25 16:00 04/09/25 20:00 Temperature 36.6 C Pulse Rate 108 H 110 H Respiratory Rate 16 Blood Pressure 111/64 Pulse Oximetry 96 Oxygen Delivery Room Air Fraction of Inspired Oxygen 04/09/25 20:00 04/09/25 20:46 04/09/25 22:15 Temperature 36.8 C Pulse Rate 104 H 103 H 109 H Respiratory Rate 18 Blood Pressure 133/90 Pulse Oximetry 95 95 Oxygen Delivery Autopap Fraction of Inspired Oxygen 21 04/10/25 00:00 04/10/25 04:00 04/10/25 05:00 Temperature 37.7 C H Pulse Rate 108 H 108 H 108 H Respiratory Rate 18 Blood Pressure 139/92 H Pulse Oximetry 94 Oxygen Delivery Fraction of Inspired Oxygen 04/10/25 08:00 04/10/25 08:00 04/10/25 08:55 Temperature 37.0 C Pulse Rate 105 H 105 H Respiratory Rate 18 Blood Pressure 132/88 Pulse Oximetry 94 Oxygen Delivery Room Air Fraction of Inspired Oxygen 04/10/25 12:00 Temperature Pulse Rate 108 H Respiratory Rate Blood Pressure Pulse Oximetry Oxygen Delivery Fraction of Inspired Oxygen Intake/Output Intake/Output: Intake & Output 04/07/25 04/08/25 04/09/25 04/10/25 23:59 23:59 23:59 23:59 Intake Total 1224 1524 1867.7 1780 Output Total 1600 3606 954 3073 Balance -376 524 967.7 80 Meds/Results Medications: Active Medications Generic Name Dose Route Start Last Admin Trade Name Freq PRN Reason Stop Dose Admin Acetaminophen 650 mg 04/06/25 20:06 04/07/25 20:44 Acetaminophen 325 Mg Tablet PO 650 mg Q4H PRN Administration Mild Pain (1-3) or Fever Hydrocodone Bitart/Acetaminophen 1 tab 03/30/25 21:18 04/10/25 09:04 Hydrocodone/Acetaminophen (*Crx) 5-325 Mg Tablet PO 1 tab Q6H PRN Administration Pain Rated 7-10 Artificial Tears 1 drop 04/01/25 12:59 Artificial Tears Ophth Soln 15 Ml Bottle EACH EYE QID PRN Dry Eye(s) Bisacodyl 5 mg 04/04/25 09:00 04/10/25 08:56 Bisacodyl 5 Mg Tablet Ec PO 5 mg QAM BRYON Administration Chlordiazepoxide HCl 25 mg 04/08/25 12:35 04/10/25 06:41 Chlordiazepoxide (*Crx) 25 Mg Capsule PO 25 mg Q6H PRN Administration Withdrawal Enoxaparin Sodium 40 mg 04/01/25 09:00 04/10/25 08:54 Enoxaparin 40 Mg/0.4 Ml Syringe SUB-Q 40 mg DAILY BRYON Administration Folic Acid 1 mg 03/31/25 09:00 04/10/25 08:54 Folic Acid 1 Mg Tablet PO 1 mg DAILY BRYON Administration Acyclovir Sodium 900 mg/ 268 mls @ 250 mls/hr 04/08/25 21:00 04/10/25 08:55 Dextrose IVPB 250 mls/hr Q12HR BRYON Administration Sodium Chloride 1,000 mls @ 125 mls/hr 04/09/25 11:00 04/10/25 05:07 Normal Saline Iv IV CONT 125 mls/hr .Q8H BRYON Administration Levothyroxine Sodium 50 mcg 03/31/25 06:30 04/10/25 05:07 Levothyroxine Sodium 50 Mcg Tablet PO 50 mcg DAILY@0630 BRYON Administration Lisinopril 20 mg 03/31/25 09:00 04/10/25 08:54 Lisinopril 20 Mg Tablet PO 20 mg DAILY BRYON Administration Methocarbamol 750 mg 03/31/25 02:49 04/07/25 20:36 Methocarbamol 750 Mg Tablet PO 750 mg TID PRN Administration muscle spasm Miscellaneous Information 0 each 04/08/25 00:01 04/09/25 08:19 Please Renew [place]. Per [employer] Procedure, It Will Discontinue If Not Renewed XX 05/08/25 00:00 Not Given CLARIFY BRYON Ondansetron HCl 4 mg 03/30/25 17:24 Ondansetron Inj 4 Mg/2 Ml Vial IV PUSH Q4H PRN Nausea Pantoprazole Sodium 40 mg 03/31/25 09:00 04/10/25 08:54 Pantoprazole 40 Mg Tablet PO 40 mg QAM BRYON Administration Polyethylene Glycol 17 gm 04/03/25 11:59 Polyethylene Glycol 3350 17 Gm Powd.Pack PO DAILY PRN Constipation Pregabalin 150 mg 04/06/25 17:00 04/10/25 12:32 Pregabalin (*Crx) 75 Mg Capsule PO 150 mg TID BRYON Administration Thiamine HCl 500 mg 04/06/25 13:00 04/10/25 08:55 Thiamine Hcl 100 Mg Tablet PO 500 mg QAM BRYON Administration Radiology Results: ITS Impressions Chest X-Ray 03/30/25 14:28 Impression: 1: Left basilar atelectasis. Head CT 03/30/25 14:51 IMPRESSION: 1. No acute intracranial process. Abdomen/Pelvis CT 03/30/25 16:42 IMPRESSION: 1. No acute intra-abdominal/pelvic process. 2. Mild diffuse bladder wall thickening and small posterior bladder diverticulum suggestive of sequela of chronic outlet obstruction Brain MRI 04/01/25 16:35 IMPRESSION: 1. Small focus in the right frontal lobe white matter most likely ischemic. 2. No evidence of acute intracranial process. 3. No abnormal enhancement. Lumbar Puncture Fluoroscopy 04/02/25 15:46 IMPRESSION: 1. Successful fluoro-guided lumbar puncture with elevated opening pressure of 29 cm water. Cervical Spine MRI 04/04/25 13:10 IMPRESSION: 1. Moderate to severely limited study due to motion artifact. 2. Mild to moderate cervical spondylosis with only minimal central canal stenosis. 3. No evident cord signal abnormalities or abnormally enhancing lesions identified. Thoracic Spine MRI 04/04/25 13:19 IMPRESSION: 1. Mild thoracic spondylosis. 2. No definitive cord signal abnormalities or abnormally enhancing lesions. Evaluation of cord signal is however moderately limited by motion artifact and relatively mild on the sagittal images but moderate severity on the axial imaging. Lumbar Spine MRI 04/04/25 13:27 IMPRESSION: 1. Mild lumbar spondylosis with instrumented L3-S1 anterior spinal fusion. Renal Ultrasound 04/09/25 19:00 IMPRESSION: Unremarkable renal sonogram findings. Labs Labs: Laboratory Results - last 24 hr 04/10/25 04:52 WBC 5.8 RBC 3.11 L Hgb 9.3 L Hct 28.7 L MCV 92.3 MCH 29.9 MCHC 32.4 RDW 15.3 H Plt Count 244 MPV 10.5 H Sodium 134 L Potassium 4.3 Chloride 101 Carbon Dioxide 24 Anion Gap 9 BUN 26 H Creatinine 2.01 H Estim Creat Clear Calc 40 Estimated GFR 35 L Glucose 108 Calcium 8.9 Magnesium 2.2 Total Bilirubin 0.7 AST 49 ALT 37 Alkaline Phosphatase 81 Total Protein 6.6 Albumin 3.7 Quality VTE Prophylaxis VTE prophylaxis: mechanical ordered (SCDs)
[2025-04-10] MEDS: CITALOPRAM HYDROBROMIDE 10 MG TABLET PO (13:53)
[2025-04-10] MEDS: LOPERAMIDE HCL 2 MG CAPSULE PO (18:35)
[2025-04-10] MEDS: ACETAMINOPHEN 325 MG TABLET 650 MG PO (21:41)
[2025-04-11] VITALS (10 sets, daily range): BP systolic 120–142; BP diastolic 73–95; PULSE 94–109; RESP 16–20; TEMP 36.8–37.2; O2SAT 95–100
[2025-04-11] MEDS: SODIUM CHLORIDE 0.9% IV 1,000 ML 125 ML IV CONT ×2 (02:50→12:08)
[2025-04-11] MEDS: chlordiazePOXIDE (*CRX) 25 MG CAPSULE PO ×2 (03:53→10:10)
[2025-04-11 05:01] LABS: Hematocrit 28.5 % (42.0-52.0); Hemoglobin 9.1 g/dL (14.0-18.0); Mean Corpuscular HGB Conc 31.9 g/dl (32-36); Mean Corpuscular Hemoglobin 29.4 pg (26-34); Mean Corpuscular Volume 92.2 fl (80-100); Mean Platelet Volume 10.3 fl (7.4-10.4); Platelet Count Result 249 k/mm3 (150-375); Red Blood Count 3.09 M/mm3 (4.6-6.20); Red Cell Distribution Width 14.9 % (11.5-14.5); White Blood Count 4.6 K/mm3 (4.5-10.0)
[2025-04-11] MEDS: HYDROcodone/acetaminophen (*CRX) 5-325 MG TABLET 1 TAB PO ×3 (05:12→20:15)
[2025-04-11] MEDS: LEVOTHYROXINE SODIUM 50 MCG TABLET PO (05:12)
[2025-04-11 05:28] LABS: Alanine Aminotransferase 35 U/L (6-50); Albumin Level 3.5 g/dL (3.5-5.1); Alkaline Phosphatase 77 U/L (38-126); Anion Gap 6 mmol/L (4-12); Aspartate Amino Transferase 48 U/L (17-59); Bilirubin,Total 0.5 mg/dL (0.2-1.3); Blood Urea Nitrogen 18 mg/dL (9-20); Carbon Dioxide 26 mmol/L (22-30); Chloride 103 mmol/L (98-107); Estimated CRCL calculation 64 ml/min; Estimated Glomerular Filt Rate > 60; Glucose 105 mg/dL (65-110); Magnesium 1.9 mg/dL (1.6-2.3); Potassium 4.2 mmol/L (3.4-5.0); Sodium 135 mmol/L (137-145); Total Protein 6.4 g/dL (6.3-8.2)
--- NOTE | 2025-04-11 09:47 | PM.IMPN ---
Progress Note: A&P Assessment and Plan (1) Acute hypokalemia: Code(s): E87.6 - Hypokalemia Status: Acute (2) Acute hyponatremia: Code(s): E87.1 - Hypo-osmolality and hyponatremia Status: Acute (3) Hepatic steatosis: Code(s): K76.0 - Fatty (change of) liver, not elsewhere classified Status: Chronic (4) Generalized weakness: Code(s): R53.1 - Weakness Status: Acute (5) Heavy alcohol consumption: Code(s): F10.90 - Alcohol use, unspecified, uncomplicated Status: Chronic (6) Metabolic alkalosis with respiratory acidosis: Code(s): E87.4 - Mixed disorder of acid-base balance Status: Acute (7) Acute anemia: Code(s): D64.9 - Anemia, unspecified Status: Acute (8) Dysmetria: Code(s): R27.8 - Other lack of coordination Status: Acute (9) Abnormal lateral conjugate gaze: Code(s): H51.8 - Other specified disorders of binocular movement Status: Acute (10) Alcohol abuse: Code(s): F10.10 - Alcohol abuse, uncomplicated Status: Acute (11) Ataxia: Code(s): R27.0 - Ataxia, unspecified Status: Acute (12) Tobacco abuse: Code(s): Z72.0 - Tobacco use Status: Chronic Plan patient with long history of alcohol abuse, presented with twitching, his B12 level is normal, he is poor historian, patient is monitored with CIWA protocol, will continue Librium 25mg q6 for 1 days and then taper to q8 and monitor, increased lyrica to 150mg TID from 100mg TID and increase thiamin to 500mg daily from 100mg, on 04/06 gave Ativan 1mg IV x1, today patient is twitching less, and his clinical symptoms are improving, seen the patient the neurologist and examine the neurologist 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 on 04/09 patient BUN and Scr were risen to 28/2.91 patient was started on IVF 125cc/hr his BUN and Scr are trending down today to 18/1.25, will monitor, patient is encourage to increase fluids intake, will do renal US, 0n 03/10 called his gave update, patient is not motivated to participate in PT, started antidepressant Celexa 10mg PO qd, will have PT/OT evaluate the patient. Alcohol neuropathy, stroke, cord compression vs electrolyte imbalance vs Wernicke's Korsakoff syndrome B12/folate wnl Patient is a heavy alcoholic, LAD was 3/7 MRI w/ow brain possible ischemic focus ECHO showed normal LV function , MRI total spine no acute findings CSF showed albuminocytologic dissociation, f/u cultures and PCRs Discussed with Dr Knowles, neurologist, noted he suspects Encephalitis in addition to alcohol withdrawal EEg pending PT/OT Neurology following Anemia Hb 9.8 Isat 77 monitor Hyponatremia, reoslved Na 133, Nephrology evaluated and noted that patient has chronci hyponatremia on currently within his baseline. monitor Alcohol abuse/withdrawal with hallucination CIWA, continue Thiamine and folate DVT prophylaxis on Sq lovenox Subjective Date/time seen: 04/11/25 09:47 Interval history: patient with long history of alcohol abuse, presented with twitching, his B12 level is normal, he is poor historian, patient is monitored with CIWA protocol, will continue Librium 25mg q6 for 1 days and then taper to q8 and monitor, increased lyrica to 150mg TID from 100mg TID and increase thiamin to 500mg daily from 100mg, on 04/06 gave Ativan 1mg IV x1, today patient is twitching less, and his clinical symptoms are improving, seen the patient the neurologist and examine the neurologist 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 on 04/09 patient BUN and Scr were risen to 28/2.91 patient was started on IVF 125cc/hr his BUN and Scr are trending down today to 18/1.25, will monitor, patient is encourage to increase fluids intake, will do renal US, 0n 03/10 called his gave update, patient is not motivated to participate in PT, started antidepressant Celexa 10mg PO qd, will have PT/OT evaluate the patient. Review of Systems Review of Systems: 12 systems were reviewed with pertinent positives and negatives per HPI. Except as documented in the HPI, all other systems were reviewed and are negative. Exam Narrative: Patient is comfortable, NAD HEENT: eyes are clear and none icteric LUNGS:CTA HEART: RR S1S2 ABD: BS+, Soft and nontender Lower extremities: no edema SKIN: nonjaundiced Neuro: grossly intact. twitching Objective Data Vital Signs Vital Signs: Vital Signs - 24 hr 04/10/25 12:00 04/10/25 16:00 04/10/25 16:00 Temperature 37.2 C Pulse Rate 108 H 104 H 105 H Pulse Rate [Bilateral Radial Palpation] Respiratory Rate 17 Blood Pressure 131/98 H Pulse Oximetry 95 Oxygen Delivery 04/10/25 20:00 04/10/25 20:00 04/10/25 20:00 Temperature Pulse Rate 103 H Pulse Rate [Bilateral Radial Palpation] 100 Respiratory Rate Blood Pressure Pulse Oximetry Oxygen Delivery Room Air 04/10/25 20:11 04/11/25 00:00 04/11/25 03:54 Temperature 37.4 C Pulse Rate 100 100 Pulse Rate [Bilateral Radial Palpation] 101 H Respiratory Rate 16 Blood Pressure 137/87 Pulse Oximetry 97 Oxygen Delivery 04/11/25 04:00 04/11/25 05:39 Temperature 37.2 C Pulse Rate 103 H 100 Pulse Rate [Bilateral Radial Palpation] Respiratory Rate 20 Blood Pressure 142/95 H Pulse Oximetry 97 Oxygen Delivery Intake/Output Intake/Output: Intake & Output 04/08/25 04/09/25 04/10/25 04/11/25 23:59 23:59 23:59 23:59 Intake Total 1524 1867.7 3581 1200 Output Total 2231 813 1760 1000 Balance 524 967.7 531 200 Meds/Results Medications: Active Medications Generic Name Dose Route Start Last Admin Trade Name Freq PRN Reason Stop Dose Admin Acetaminophen 650 mg 04/06/25 20:06 04/10/25 21:41 Acetaminophen 325 Mg Tablet PO 650 mg Q4H PRN Administration Mild Pain (1-3) or Fever Hydrocodone Bitart/Acetaminophen 1 tab 03/30/25 21:18 04/11/25 05:12 Hydrocodone/Acetaminophen (*Crx) 5-325 Mg Tablet PO 1 tab Q6H PRN Administration Pain Rated 7-10 Artificial Tears 1 drop 04/01/25 12:59 Artificial Tears Ophth Soln 15 Ml Bottle EACH EYE QID PRN Dry Eye(s) Bisacodyl 5 mg 04/04/25 09:00 04/10/25 08:56 Bisacodyl 5 Mg Tablet Ec PO 5 mg QAM BRYON Administration Chlordiazepoxide HCl 25 mg 04/08/25 12:35 04/11/25 03:53 Chlordiazepoxide (*Crx) 25 Mg Capsule PO 25 mg Q6H PRN Administration Withdrawal Citalopram Hydrobromide 10 mg 04/10/25 13:25 04/10/25 13:53 Citalopram Hydrobromide 10 Mg Tablet PO 10 mg QAM BRYON Administration Enoxaparin Sodium 40 mg 04/01/25 09:00 04/10/25 08:54 Enoxaparin 40 Mg/0.4 Ml Syringe SUB-Q 40 mg DAILY BRYON Administration Folic Acid 1 mg 03/31/25 09:00 04/10/25 08:54 Folic Acid 1 Mg Tablet PO 1 mg DAILY BRYON Administration Acyclovir Sodium 900 mg/ 268 mls @ 250 mls/hr 04/08/25 21:00 04/10/25 22:43 Dextrose IVPB Infused Q12HR BRYON Infusion Sodium Chloride 1,000 mls @ 125 mls/hr 04/09/25 11:00 04/11/25 02:51 Normal Saline Iv IV CONT Not Given .Q8H BRYON Levothyroxine Sodium 50 mcg 03/31/25 06:30 04/11/25 05:12 Levothyroxine Sodium 50 Mcg Tablet PO 50 mcg DAILY@0630 BRYON Administration Lisinopril 20 mg 03/31/25 09:00 04/10/25 08:54 Lisinopril 20 Mg Tablet PO 20 mg DAILY BRYON Administration Loperamide HCl 2 mg 04/10/25 17:55 04/10/25 18:35 Loperamide Hcl 2 Mg Capsule PO 2 mg Q8HR PRN Administration Diarrhea Methocarbamol 750 mg 03/31/25 02:49 04/07/25 20:36 Methocarbamol 750 Mg Tablet PO 750 mg TID PRN Administration muscle spasm Miscellaneous Information 0 each 04/08/25 00:01 04/10/25 23:18 Please Renew [place]. Per [employer] Procedure, It Will Discontinue If Not Renewed XX 05/08/25 00:00 Not Given CLARIFY BRYON Pantoprazole Sodium 40 mg 03/31/25 09:00 04/10/25 08:54 Pantoprazole 40 Mg Tablet PO 40 mg QAM BRYON Administration Polyethylene Glycol 17 gm 04/03/25 11:59 Polyethylene Glycol 3350 17 Gm Powd.Pack PO DAILY PRN Constipation Pregabalin 150 mg 04/06/25 17:00 04/10/25 17:48 Pregabalin (*Crx) 75 Mg Capsule PO 150 mg TID BRYON Administration Thiamine HCl 500 mg 04/06/25 13:00 04/10/25 08:55 Thiamine Hcl 100 Mg Tablet PO 500 mg QAM BRYON Administration Radiology Results: ITS Impressions Chest X-Ray 03/30/25 14:28 Impression: 1: Left basilar atelectasis. Head CT 03/30/25 14:51 IMPRESSION: 1. No acute intracranial process. Abdomen/Pelvis CT 03/30/25 16:42 IMPRESSION: 1. No acute intra-abdominal/pelvic process. 2. Mild diffuse bladder wall thickening and small posterior bladder diverticulum suggestive of sequela of chronic outlet obstruction Brain MRI 04/01/25 16:35 IMPRESSION: 1. Small focus in the right frontal lobe white matter most likely ischemic. 2. No evidence of acute intracranial process. 3. No abnormal enhancement. Lumbar Puncture Fluoroscopy 04/02/25 15:46 IMPRESSION: 1. Successful fluoro-guided lumbar puncture with elevated opening pressure of 29 cm water. Cervical Spine MRI 04/04/25 13:10 IMPRESSION: 1. Moderate to severely limited study due to motion artifact. 2. Mild to moderate cervical spondylosis with only minimal central canal stenosis. 3. No evident cord signal abnormalities or abnormally enhancing lesions identified. Thoracic Spine MRI 04/04/25 13:19 IMPRESSION: 1. Mild thoracic spondylosis. 2. No definitive cord signal abnormalities or abnormally enhancing lesions. Evaluation of cord signal is however moderately limited by motion artifact and relatively mild on the sagittal images but moderate severity on the axial imaging. Lumbar Spine MRI 04/04/25 13:27 IMPRESSION: 1. Mild lumbar spondylosis with instrumented L3-S1 anterior spinal fusion. Renal Ultrasound 04/09/25 19:00 IMPRESSION: Unremarkable renal sonogram findings. Labs Labs: Laboratory Results - last 24 hr 04/11/25 04:44 WBC 4.6 RBC 3.09 L Hgb 9.1 L Hct 28.5 L MCV 92.2 MCH 29.4 MCHC 31.9 L RDW 14.9 H Plt Count 249 MPV 10.3 Sodium 135 L Potassium 4.2 Chloride 103 Carbon Dioxide 26 Anion Gap 6 BUN 18 Creatinine 1.25 Estim Creat Clear Calc 64 Estimated GFR > 60 Glucose 105 Calcium 9.0 Magnesium 1.9 Total Bilirubin 0.5 AST 48 ALT 35 Alkaline Phosphatase 77 Total Protein 6.4 Albumin 3.5 Quality VTE Prophylaxis VTE prophylaxis: mechanical ordered (SCDs)
[2025-04-11] MEDS: BISACODYL 5 MG TABLET EC PO (10:09)
[2025-04-11] MEDS: PREGABALIN (*CRX) 75 MG CAPSULE 150 MG PO ×3 (10:09→19:01)
[2025-04-11] MEDS: THIAMINE HCL 100 MG TABLET 500 MG PO (10:09)
[2025-04-11] MEDS: ENOXAPARIN 40 MG/0.4 ML SYRINGE SUB-Q (10:10)
[2025-04-11] MEDS: CITALOPRAM HYDROBROMIDE 10 MG TABLET PO (10:10)
[2025-04-11] MEDS: FOLIC ACID 1 MG TABLET PO (10:10)
[2025-04-11] MEDS: PANTOPRAZOLE 40 MG TABLET PO (10:10)
[2025-04-11] MEDS: lisinopriL 20 MG TABLET PO (10:10)
[2025-04-11] MEDS: ACYCLOVIR SODIUM IVPB 900 MG in DEXTROSE 5% IN WATER 250 ML 250 MG IVPB ×2 (10:12→21:19)
[2025-04-11] MEDS: methocarbamoL 750 MG TABLET PO (12:08)
--- NOTE | 2025-04-11 20:09 | PC.NURSE ---
multiple RNs have attempted to obtain IV access without success
[2025-04-12] VITALS (12 sets, daily range): BP systolic 131–160; BP diastolic 84–97; PULSE 94–113; RESP 12–16; TEMP 36.4–37.4; O2SAT 95–98
[2025-04-12] MEDS: SODIUM CHLORIDE 0.9% IV 1,000 ML 125 ML IV CONT ×2 (03:24→16:04)
[2025-04-12] MEDS: HYDROcodone/acetaminophen (*CRX) 5-325 MG TABLET 1 TAB PO ×3 (03:24→22:11)
[2025-04-12] MEDS: LOPERAMIDE HCL 2 MG CAPSULE PO (03:24)
[2025-04-12 04:57] LABS: Hematocrit 29.2 % (42.0-52.0); Hemoglobin 9.4 g/dL (14.0-18.0); Mean Corpuscular HGB Conc 32.2 g/dl (32-36); Mean Corpuscular Hemoglobin 30.1 pg (26-34); Mean Corpuscular Volume 93.6 fl (80-100); Mean Platelet Volume 10.4 fl (7.4-10.4); Platelet Count Result 233 k/mm3 (150-375); Red Blood Count 3.12 M/mm3 (4.6-6.20); Red Cell Distribution Width 15.4 % (11.5-14.5); White Blood Count 4.1 K/mm3 (4.5-10.0)
[2025-04-12] MEDS: LEVOTHYROXINE SODIUM 50 MCG TABLET PO (05:14)
[2025-04-12 05:34] LABS: Alanine Aminotransferase 38 U/L (6-50); Albumin Level 3.7 g/dL (3.5-5.1); Alkaline Phosphatase 81 U/L (38-126); Anion Gap 9 mmol/L (4-12); Aspartate Amino Transferase 49 U/L (17-59); Bilirubin,Total 0.5 mg/dL (0.2-1.3); Blood Urea Nitrogen 13 mg/dL (9-20); Calcium 9.3 mg/dL (8.4-10.2); Carbon Dioxide 24 mmol/L (22-30); Chloride 103 mmol/L (98-107); Estimated CRCL calculation 85 ml/min; Estimated Glomerular Filt Rate > 60; Glucose 113 mg/dL (65-110); Magnesium 1.7 mg/dL (1.6-2.3); Potassium 4.1 mmol/L (3.4-5.0); Sodium 136 mmol/L (137-145); Total Protein 6.9 g/dL (6.3-8.2)
[2025-04-12] MEDS: methocarbamoL 750 MG TABLET PO ×2 (08:22→22:12)
[2025-04-12] MEDS: CITALOPRAM HYDROBROMIDE 10 MG TABLET PO (08:22)
[2025-04-12] MEDS: THIAMINE HCL 100 MG TABLET 500 MG PO (08:22)
[2025-04-12] MEDS: FOLIC ACID 1 MG TABLET PO (08:22)
[2025-04-12] MEDS: PREGABALIN (*CRX) 75 MG CAPSULE 150 MG PO ×3 (08:22→18:51)
[2025-04-12] MEDS: PANTOPRAZOLE 40 MG TABLET PO (08:23)
[2025-04-12] MEDS: ENOXAPARIN 40 MG/0.4 ML SYRINGE SUB-Q (08:23)
[2025-04-12] MEDS: lisinopriL 20 MG TABLET PO (08:23)
[2025-04-12] MEDS: ACYCLOVIR SODIUM IVPB 900 MG in DEXTROSE 5% IN WATER 250 ML 250 MG IVPB ×3 (08:24→22:12)
--- NOTE | 2025-04-12 11:14 | PCNFU ---
Nutrition Follow-Up Complete: Inadequate oral intake related to loss of appetite as evidenced by intakes 0-10% Goal: PO intake as tolerated Patient has limited progress towards goal. We will continue current goal. Pt current nutrition is Easy to Chew, Level 7/Heart Healthy with Ensure Ensure TID. Last recorded weight is 80.24 kg, down from 86.4 kg on admit. Bowel Motility: Last reported BM 04/12 Labs Reviewed:Glu 113, Na 136, Hct 29.2, Hgb 9.4 Meds Noted: Folic Acid, Protonix,Thiamine. Skin: WNL Additional Notes: Patient currently on an Easy to Chew, Level 7 diet. Oral Intake reported at 50% of less of meals. Patient is drinking diet supplements providing an additional 350 kcal and 20 gm protein. PO intake encouraged. Agree with diet orders. Monitoring intakes, weights, labs, supplement tolerance, plan of care Follow up in 3 days
--- NOTE | 2025-04-12 18:10 | PM.IMPN ---
Progress Note: A&P Assessment and Plan (1) Acute hypokalemia: Code(s): E87.6 - Hypokalemia Status: Acute (2) Acute hyponatremia: Code(s): E87.1 - Hypo-osmolality and hyponatremia Status: Acute (3) Hepatic steatosis: Code(s): K76.0 - Fatty (change of) liver, not elsewhere classified Status: Chronic (4) Generalized weakness: Code(s): R53.1 - Weakness Status: Acute (5) Heavy alcohol consumption: Code(s): F10.90 - Alcohol use, unspecified, uncomplicated Status: Chronic (6) Metabolic alkalosis with respiratory acidosis: Code(s): E87.4 - Mixed disorder of acid-base balance Status: Acute (7) Acute anemia: Code(s): D64.9 - Anemia, unspecified Status: Acute (8) Dysmetria: Code(s): R27.8 - Other lack of coordination Status: Acute (9) Abnormal lateral conjugate gaze: Code(s): H51.8 - Other specified disorders of binocular movement Status: Acute (10) Alcohol abuse: Code(s): F10.10 - Alcohol abuse, uncomplicated Status: Acute (11) Ataxia: Code(s): R27.0 - Ataxia, unspecified Status: Acute (12) Tobacco abuse: Code(s): Z72.0 - Tobacco use Status: Chronic Plan patient with long history of alcohol abuse, presented with twitching, his B12 level is normal, he is poor historian, patient is monitored with CIWA protocol, will continue Librium 25mg q6 for 1 days and then taper to q8 and monitor, increased lyrica to 150mg TID from 100mg TID and increase thiamin to 500mg daily from 100mg, on 04/06 gave Ativan 1mg IV x1, today patient is twitching less, and his clinical symptoms are improving, seen the patient the neurologist and examine the neurologist 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 on 04/09 patient BUN and Scr were risen to 28/2.91 patient was started on IVF 125cc/hr his BUN and Scr are trending down today to 13/.92, will stop IVF, will monitor, patient is encourage to increase fluids intake, renal US is normal, discuss with neurologist patient clinicall symptoms are improving, patient is present in the room, gave updates, patient is not motivated to participate in PT, started antidepressant Celexa 10mg PO qd, will have PT/OT evaluate the patient. Alcohol neuropathy, stroke, cord compression vs electrolyte imbalance vs Wernicke's Korsakoff syndrome B12/folate wnl Patient is a heavy alcoholic, LAD was 3/7 MRI w/ow brain possible ischemic focus ECHO showed normal LV function , MRI total spine no acute findings CSF showed albuminocytologic dissociation, f/u cultures and PCRs Discussed with Dr Knowles, neurologist, noted he suspects Encephalitis in addition to alcohol withdrawal EEg pending PT/OT Neurology following Anemia Hb 9.8 Isat 77 monitor Hyponatremia, reoslved Na 133, Nephrology evaluated and noted that patient has chronci hyponatremia on currently within his baseline. monitor Alcohol abuse/withdrawal with hallucination CIWA, continue Thiamine and folate DVT prophylaxis on Sq lovenox Subjective Date/time seen: 04/12/25 18:10 Interval history: patient with long history of alcohol abuse, presented with twitching, his B12 level is normal, he is poor historian, patient is monitored with CIWA protocol, will continue Librium 25mg q6 for 1 days and then taper to q8 and monitor, increased lyrica to 150mg TID from 100mg TID and increase thiamin to 500mg daily from 100mg, on 04/06 gave Ativan 1mg IV x1, today patient is twitching less, and his clinical symptoms are improving, seen the patient the neurologist and examine the neurologist 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 on 04/09 patient BUN and Scr were risen to 28/2.91 patient was started on IVF 125cc/hr his BUN and Scr are trending down today to 13/.92, will stop IVF, will monitor, patient is encourage to increase fluids intake, renal US is normal, discuss with neurologist patient clinicall symptoms are improving, patient is present in the room, gave updates, patient is not motivated to participate in PT, started antidepressant Celexa 10mg PO qd, will have PT/OT evaluate the patient. Review of Systems Review of Systems: 12 systems were reviewed with pertinent positives and negatives per HPI. Except as documented in the HPI, all other systems were reviewed and are negative. Exam Narrative: Patient is comfortable, NAD HEENT: eyes are clear and none icteric LUNGS:CTA HEART: RR S1S2 ABD: BS+, Soft and nontender Lower extremities: no edema SKIN: nonjaundiced Neuro: grossly intact. twitching Objective Data Vital Signs Vital Signs: Vital Signs - 24 hr 04/11/25 20:00 04/11/25 20:00 04/11/25 20:00 Temperature Pulse Rate 101 H Pulse Rate [Bilateral Radial Palpation] 101 H Respiratory Rate Blood Pressure Pulse Oximetry Oxygen Delivery Room Air 04/11/25 22:37 04/12/25 00:00 04/12/25 00:00 Temperature 36.8 C Pulse Rate 97 101 H Pulse Rate [Bilateral Radial Palpation] 101 H Respiratory Rate 16 Blood Pressure 120/73 Pulse Oximetry 95 Oxygen Delivery 04/12/25 04:00 04/12/25 04:00 04/12/25 04:53 Temperature 36.9 C Pulse Rate 106 H 104 H Pulse Rate [Bilateral Radial Palpation] 106 H Respiratory Rate 16 Blood Pressure 160/90 H Pulse Oximetry 98 Oxygen Delivery 04/12/25 06:18 04/12/25 08:00 04/12/25 08:02 Temperature Pulse Rate 94 Pulse Rate [Bilateral Radial Palpation] 94 Respiratory Rate Blood Pressure 157/97 H 154/96 H Pulse Oximetry Oxygen Delivery 04/12/25 08:15 04/12/25 12:01 04/12/25 12:01 Temperature Pulse Rate 107 H Pulse Rate [Bilateral Radial Palpation] 107 H Respiratory Rate Blood Pressure Pulse Oximetry Oxygen Delivery Room Air 04/12/25 14:00 04/12/25 16:02 04/12/25 16:02 Temperature 36.4 C L Pulse Rate 113 H 99 Pulse Rate [Bilateral Radial Palpation] 99 Respiratory Rate 14 Blood Pressure 152/92 H Pulse Oximetry 97 Oxygen Delivery Intake/Output Intake/Output: Intake & Output 04/09/25 04/10/25 04/11/25 04/12/25 23:59 23:59 23:59 23:59 Intake Total 1867.7 3581 4293.9 1982.1 Output Total 900 3050 2850 2550 Balance 967.7 531 1443.9 -567.9 Meds/Results Medications: Active Medications Generic Name Dose Route Start Last Admin Trade Name Freq PRN Reason Stop Dose Admin Acetaminophen 650 mg 04/06/25 20:06 04/10/25 21:41 Acetaminophen 325 Mg Tablet PO 650 mg Q4H PRN Administration Mild Pain (1-3) or Fever Hydrocodone Bitart/Acetaminophen 1 tab 03/30/25 21:18 04/12/25 10:14 Hydrocodone/Acetaminophen (*Crx) 5-325 Mg Tablet PO 1 tab Q6H PRN Administration Pain Rated 7-10 Artificial Tears 1 drop 04/01/25 12:59 Artificial Tears Ophth Soln 15 Ml Bottle EACH EYE QID PRN Dry Eye(s) Bisacodyl 5 mg 04/04/25 09:00 04/12/25 08:24 Bisacodyl 5 Mg Tablet Ec PO Not Given QAM BRYON Chlordiazepoxide HCl 25 mg 04/08/25 12:35 04/11/25 10:10 Chlordiazepoxide (*Crx) 25 Mg Capsule PO 25 mg Q6H PRN Administration Withdrawal Citalopram Hydrobromide 10 mg 04/10/25 13:25 04/12/25 08:22 Citalopram Hydrobromide 10 Mg Tablet PO 10 mg QAM BRYON Administration Enoxaparin Sodium 40 mg 04/01/25 09:00 04/12/25 08:23 Enoxaparin 40 Mg/0.4 Ml Syringe SUB-Q 40 mg DAILY BRYON Administration Folic Acid 1 mg 03/31/25 09:00 04/12/25 08:22 Folic Acid 1 Mg Tablet PO 1 mg DAILY BRYON Administration Sodium Chloride 1,000 mls @ 125 mls/hr 04/09/25 11:00 04/12/25 16:04 Normal Saline Iv IV CONT 125 mls/hr .Q8H BRYON Administration Acyclovir Sodium 900 mg/ 268 mls @ 250 mls/hr 04/12/25 15:00 04/12/25 16:04 Dextrose IVPB 250 mls/hr Q8HR BRYON Administration Levothyroxine Sodium 50 mcg 03/31/25 06:30 04/12/25 05:14 Levothyroxine Sodium 50 Mcg Tablet PO 50 mcg DAILY@0630 BRYON Administration Lisinopril 20 mg 03/31/25 09:00 04/12/25 08:23 Lisinopril 20 Mg Tablet PO 20 mg DAILY BRYON Administration Loperamide HCl 2 mg 04/10/25 17:55 04/12/25 03:24 Loperamide Hcl 2 Mg Capsule PO 2 mg Q8HR PRN Administration Diarrhea Methocarbamol 750 mg 03/31/25 02:49 04/12/25 08:22 Methocarbamol 750 Mg Tablet PO 750 mg TID PRN Administration muscle spasm Miscellaneous Information 0 each 04/08/25 00:01 04/11/25 21:20 Please Renew [place]. Per [employer] Procedure, It Will Discontinue If Not Renewed XX 05/08/25 00:00 Not Given CLARIFY BRYON Pantoprazole Sodium 40 mg 03/31/25 09:00 04/12/25 08:23 Pantoprazole 40 Mg Tablet PO 40 mg QAM BRYON Administration Polyethylene Glycol 17 gm 04/03/25 11:59 Polyethylene Glycol 3350 17 Gm Powd.Pack PO DAILY PRN Constipation Pregabalin 150 mg 04/06/25 17:00 04/12/25 15:58 Pregabalin (*Crx) 75 Mg Capsule PO 150 mg TID BRYON Administration Thiamine HCl 500 mg 04/06/25 13:00 04/12/25 08:22 Thiamine Hcl 100 Mg Tablet PO 500 mg QAM BRYON Administration Radiology Results: ITS Impressions Chest X-Ray 03/30/25 14:28 Impression: 1: Left basilar atelectasis. Head CT 03/30/25 14:51 IMPRESSION: 1. No acute intracranial process. Abdomen/Pelvis CT 03/30/25 16:42 IMPRESSION: 1. No acute intra-abdominal/pelvic process. 2. Mild diffuse bladder wall thickening and small posterior bladder diverticulum suggestive of sequela of chronic outlet obstruction Brain MRI 04/01/25 16:35 IMPRESSION: 1. Small focus in the right frontal lobe white matter most likely ischemic. 2. No evidence of acute intracranial process. 3. No abnormal enhancement. Lumbar Puncture Fluoroscopy 04/02/25 15:46 IMPRESSION: 1. Successful fluoro-guided lumbar puncture with elevated opening pressure of 29 cm water. Cervical Spine MRI 04/04/25 13:10 IMPRESSION: 1. Moderate to severely limited study due to motion artifact. 2. Mild to moderate cervical spondylosis with only minimal central canal stenosis. 3. No evident cord signal abnormalities or abnormally enhancing lesions identified. Thoracic Spine MRI 04/04/25 13:19 IMPRESSION: 1. Mild thoracic spondylosis. 2. No definitive cord signal abnormalities or abnormally enhancing lesions. Evaluation of cord signal is however moderately limited by motion artifact and relatively mild on the sagittal images but moderate severity on the axial imaging. Lumbar Spine MRI 04/04/25 13:27 IMPRESSION: 1. Mild lumbar spondylosis with instrumented L3-S1 anterior spinal fusion. Renal Ultrasound 04/09/25 19:00 IMPRESSION: Unremarkable renal sonogram findings. Labs Labs: Laboratory Results - last 24 hr 04/12/25 04:38 WBC 4.1 L RBC 3.12 L Hgb 9.4 L Hct 29.2 L MCV 93.6 MCH 30.1 MCHC 32.2 RDW 15.4 H Plt Count 233 MPV 10.4 Sodium 136 L Potassium 4.1 Chloride 103 Carbon Dioxide 24 Anion Gap 9 BUN 13 D Creatinine 0.92 Estim Creat Clear Calc 85 Estimated GFR > 60 Glucose 113 H Calcium 9.3 Magnesium 1.7 Total Bilirubin 0.5 AST 49 ALT 38 Alkaline Phosphatase 81 Total Protein 6.9 Albumin 3.7 Quality VTE Prophylaxis VTE prophylaxis: mechanical ordered (SCDs)
[2025-04-13] VITALS (10 sets, daily range): BP systolic 116–152; BP diastolic 82–99; PULSE 96–115; RESP 12–18; TEMP 36.6–37; O2SAT 94–100
[2025-04-13 05:24] LABS: Hematocrit 28.5 % (42.0-52.0); Hemoglobin 9.3 g/dL (14.0-18.0); Mean Corpuscular HGB Conc 32.6 g/dl (32-36); Mean Corpuscular Hemoglobin 30.4 pg (26-34); Mean Corpuscular Volume 93.1 fl (80-100); Mean Platelet Volume 10.5 fl (7.4-10.4); Platelet Count Result 251 k/mm3 (150-375); Red Blood Count 3.06 M/mm3 (4.6-6.20); Red Cell Distribution Width 15.6 % (11.5-14.5); White Blood Count 4.1 K/mm3 (4.5-10.0)
[2025-04-13] MEDS: ACYCLOVIR SODIUM IVPB 900 MG in DEXTROSE 5% IN WATER 250 ML 250 MG IVPB ×3 (05:34→21:33)
[2025-04-13] MEDS: LEVOTHYROXINE SODIUM 50 MCG TABLET PO (05:34)
[2025-04-13] MEDS: HYDROcodone/acetaminophen (*CRX) 5-325 MG TABLET 1 TAB PO ×3 (05:34→21:43)
[2025-04-13 05:37] LABS: Alanine Aminotransferase 79 U/L (6-50); Albumin Level 3.6 g/dL (3.5-5.1); Alkaline Phosphatase 121 U/L (38-126); Anion Gap 8 mmol/L (4-12); Aspartate Amino Transferase 88 U/L (17-59); Bilirubin,Total 0.5 mg/dL (0.2-1.3); Blood Urea Nitrogen 9 mg/dL (9-20); Calcium 9.4 mg/dL (8.4-10.2); Carbon Dioxide 25 mmol/L (22-30); Chloride 102 mmol/L (98-107); Estimated CRCL calculation 95 ml/min; Estimated Glomerular Filt Rate > 60; Glucose 107 mg/dL (65-110); Magnesium 1.4 mg/dL (1.6-2.3); Sodium 135 mmol/L (137-145); Total Protein 6.6 g/dL (6.3-8.2)
[2025-04-13] MEDS: CITALOPRAM HYDROBROMIDE 10 MG TABLET PO (09:55)
[2025-04-13] MEDS: PANTOPRAZOLE 40 MG TABLET PO (09:55)
[2025-04-13] MEDS: THIAMINE HCL 100 MG TABLET 500 MG PO (09:55)
[2025-04-13] MEDS: ENOXAPARIN 40 MG/0.4 ML SYRINGE SUB-Q (09:55)
[2025-04-13] MEDS: FOLIC ACID 1 MG TABLET PO (09:55)
[2025-04-13] MEDS: lisinopriL 20 MG TABLET PO (09:55)
[2025-04-13] MEDS: PREGABALIN (*CRX) 75 MG CAPSULE 150 MG PO ×2 (09:55→14:00)
[2025-04-13] MEDS: MAGNESIUM SULF 2 GM/WATER 50ML 2 GM/50 ML BAG IVPB (14:58)
--- NOTE | 2025-04-13 15:29 | PM.IMPN ---
Progress Note: A&P Assessment and Plan (1) Acute hypokalemia: Code(s): E87.6 - Hypokalemia Status: Acute (2) Acute hyponatremia: Code(s): E87.1 - Hypo-osmolality and hyponatremia Status: Acute (3) Hepatic steatosis: Code(s): K76.0 - Fatty (change of) liver, not elsewhere classified Status: Chronic (4) Generalized weakness: Code(s): R53.1 - Weakness Status: Acute (5) Heavy alcohol consumption: Code(s): F10.90 - Alcohol use, unspecified, uncomplicated Status: Chronic (6) Metabolic alkalosis with respiratory acidosis: Code(s): E87.4 - Mixed disorder of acid-base balance Status: Acute (7) Acute anemia: Code(s): D64.9 - Anemia, unspecified Status: Acute (8) Dysmetria: Code(s): R27.8 - Other lack of coordination Status: Acute (9) Abnormal lateral conjugate gaze: Code(s): H51.8 - Other specified disorders of binocular movement Status: Acute (10) Alcohol abuse: Code(s): F10.10 - Alcohol abuse, uncomplicated Status: Acute (11) Ataxia: Code(s): R27.0 - Ataxia, unspecified Status: Acute (12) Tobacco abuse: Code(s): Z72.0 - Tobacco use Status: Chronic Plan patient with long history of alcohol abuse, presented with twitching, his B12 level is normal, he is poor historian, patient is monitored with CIWA protocol, will continue Librium 25mg q6 for 1 days and then taper to q8 and monitor, increased lyrica to 150mg TID from 100mg TID and increase thiamin to 500mg daily from 100mg, on 04/06 gave Ativan 1mg IV x1, today patient is twitching less, and his clinical symptoms are improving, seen the patient the neurologist and examine the neurologist 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 on 04/09 patient BUN and Scr were risen to 28/2.91 patient was started on IVF 125cc/hr his BUN and Scr are trending down today to 13/.92, will stop IVF, will monitor, patient is encourage to increase fluids intake, renal US is normal, discuss with neurologist patient clinicall symptoms are improving, patient is present in the room, gave updates, patient is not motivated to participate in PT, started antidepressant Celexa 10mg PO qd, will have PT/OT evaluate the patient. 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 He needs to stop drinking alcohol, and participate in physical therapy with extra motivation to recover muscles strength. will monitor. patient BUN and SCr are now close to normal. Alcohol neuropathy, stroke, cord compression vs electrolyte imbalance vs Wernicke's Korsakoff syndrome B12/folate wnl Patient is a heavy alcoholic, LAD was 3/7 MRI w/ow brain possible ischemic focus ECHO showed normal LV function , MRI total spine no acute findings CSF showed albuminocytologic dissociation, f/u cultures and PCRs Discussed with Dr Knowles, neurologist, noted he suspects Encephalitis in addition to alcohol withdrawal EEg pending PT/OT Neurology following Anemia Hb 9.8 Isat 77 monitor Hyponatremia, reoslved Na 133, Nephrology evaluated and noted that patient has chronci hyponatremia on currently within his baseline. monitor Alcohol abuse/withdrawal with hallucination CIWA, continue Thiamine and folate DVT prophylaxis on Sq lovenox Subjective Date/time seen: 04/13/25 15:29 Interval history: patient with long history of alcohol abuse, presented with twitching, his B12 level is normal, he is poor historian, patient is monitored with CIWA protocol, will continue Librium 25mg q6 for 1 days and then taper to q8 and monitor, increased lyrica to 150mg TID from 100mg TID and increase thiamin to 500mg daily from 100mg, on 04/06 gave Ativan 1mg IV x1, today patient is twitching less, and his clinical symptoms are improving, seen the patient the neurologist and examine the neurologist 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 on 04/09 patient BUN and Scr were risen to 28/2.91 patient was started on IVF 125cc/hr his BUN and Scr are trending down today to 13/.92, will stop IVF, will monitor, patient is encourage to increase fluids intake, renal US is normal, discuss with neurologist patient clinicall symptoms are improving, patient is present in the room, gave updates, patient is not motivated to participate in PT, started antidepressant Celexa 10mg PO qd, will have PT/OT evaluate the patient. 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 He needs to stop drinking alcohol, and participate in physical therapy with extra motivation to recover muscles strength. will monitor. patient BUN and SCr are now close to normal. Review of Systems Review of Systems: 12 systems were reviewed with pertinent positives and negatives per HPI. Except as documented in the HPI, all other systems were reviewed and are negative. Exam Narrative: Patient is comfortable, NAD HEENT: eyes are clear and none icteric LUNGS:CTA HEART: RR S1S2 ABD: BS+, Soft and nontender Lower extremities: no edema SKIN: nonjaundiced Neuro: grossly intact. twitching Objective Data Vital Signs Vital Signs: Vital Signs - 24 hr 04/12/25 16:02 04/12/25 16:02 04/12/25 20:00 Temperature Pulse Rate 99 Pulse Rate [Bilateral Radial Palpation] 99 109 H Respiratory Rate Blood Pressure Pulse Oximetry Oxygen Delivery 04/12/25 20:00 04/12/25 20:01 04/12/25 20:05 Temperature 37.4 C Pulse Rate 104 H 100 Pulse Rate [Bilateral Radial Palpation] Respiratory Rate 12 Blood Pressure 131/84 Pulse Oximetry 95 Oxygen Delivery Room Air 04/13/25 00:00 04/13/25 00:02 04/13/25 04:00 Temperature Pulse Rate 108 H Pulse Rate [Bilateral Radial Palpation] 104 H 99 Respiratory Rate Blood Pressure Pulse Oximetry Oxygen Delivery 04/13/25 04:00 04/13/25 04:52 04/13/25 12:00 Temperature 37.0 C Pulse Rate 100 99 110 H Pulse Rate [Bilateral Radial Palpation] Respiratory Rate 12 Blood Pressure 152/99 H Pulse Oximetry 94 Oxygen Delivery 04/13/25 14:00 Temperature 36.6 C Pulse Rate 106 H Pulse Rate [Bilateral Radial Palpation] Respiratory Rate 18 Blood Pressure 125/89 Pulse Oximetry 98 Oxygen Delivery Intake/Output Intake/Output: Intake & Output 04/10/25 04/11/25 04/12/25 04/13/25 23:59 23:59 23:59 23:59 Intake Total 3581 4293.9 2518.1 768 Output Total 3050 2850 2550 1750 Balance 531 1443.9 -31.9 -982 Meds/Results Medications: Active Medications Generic Name Dose Route Start Last Admin Trade Name Freq PRN Reason Stop Dose Admin Acetaminophen 650 mg 04/06/25 20:06 04/10/25 21:41 Acetaminophen 325 Mg Tablet PO 650 mg Q4H PRN Administration Mild Pain (1-3) or Fever Hydrocodone Bitart/Acetaminophen 1 tab 03/30/25 21:18 04/13/25 14:00 Hydrocodone/Acetaminophen (*Crx) 5-325 Mg Tablet PO 1 tab Q6H PRN Administration Pain Rated 7-10 Artificial Tears 1 drop 04/01/25 12:59 Artificial Tears Ophth Soln 15 Ml Bottle EACH EYE QID PRN Dry Eye(s) Bisacodyl 5 mg 04/04/25 09:00 04/13/25 09:56 Bisacodyl 5 Mg Tablet Ec PO Not Given QAM BRYON Chlordiazepoxide HCl 25 mg 04/08/25 12:35 04/11/25 10:10 Chlordiazepoxide (*Crx) 25 Mg Capsule PO 25 mg Q6H PRN Administration Withdrawal Citalopram Hydrobromide 10 mg 04/10/25 13:25 04/13/25 09:55 Citalopram Hydrobromide 10 Mg Tablet PO 10 mg QAM [facility] Administration Enoxaparin Sodium 40 mg 04/01/25 09:00 04/13/25 09:55 Enoxaparin 40 Mg/0.4 Ml Syringe SUB-Q 40 mg DAILY BRYON Administration Folic Acid 1 mg 03/31/25 09:00 04/13/25 09:55 Folic Acid 1 Mg Tablet PO 1 mg DAILY BRYON Administration Acyclovir Sodium 900 mg/ 268 mls @ 250 mls/hr 04/12/25 15:00 04/13/25 14:00 Dextrose IVPB 250 mls/hr Q8HR BRYON Administration Levothyroxine Sodium 50 mcg 03/31/25 06:30 04/13/25 05:34 Levothyroxine Sodium 50 Mcg Tablet PO 50 mcg DAILY@0630 BRYON Administration Lisinopril 20 mg 03/31/25 09:00 04/13/25 09:55 Lisinopril 20 Mg Tablet PO 20 mg DAILY BRYON Administration Loperamide HCl 2 mg 04/10/25 17:55 04/12/25 03:24 Loperamide Hcl 2 Mg Capsule PO 2 mg Q8HR PRN Administration Diarrhea Methocarbamol 750 mg 03/31/25 02:49 04/12/25 22:12 Methocarbamol 750 Mg Tablet PO 750 mg TID PRN Administration muscle spasm Miscellaneous Information 0 each 04/08/25 00:01 04/11/25 21:20 Please Renew [place]. Per [employer] Procedure, It Will Discontinue If Not Renewed XX 05/08/25 00:00 Not Given CLARIFY BRYON Pantoprazole Sodium 40 mg 03/31/25 09:00 04/13/25 09:55 Pantoprazole 40 Mg Tablet PO 40 mg QAM BRYON Administration Polyethylene Glycol 17 gm 04/03/25 11:59 Polyethylene Glycol 3350 17 Gm Powd.Pack PO DAILY PRN Constipation Pregabalin 150 mg 04/06/25 17:00 04/13/25 14:00 Pregabalin (*Crx) 75 Mg Capsule PO 150 mg TID BRYON Administration Thiamine HCl 500 mg 04/06/25 13:00 04/13/25 09:55 Thiamine Hcl 100 Mg Tablet PO 500 mg QAM BRYON Administration Radiology Results: ITS Impressions Chest X-Ray 03/30/25 14:28 Impression: 1: Left basilar atelectasis. Head CT 03/30/25 14:51 IMPRESSION: 1. No acute intracranial process. Abdomen/Pelvis CT 03/30/25 16:42 IMPRESSION: 1. No acute intra-abdominal/pelvic process. 2. Mild diffuse bladder wall thickening and small posterior bladder diverticulum suggestive of sequela of chronic outlet obstruction Brain MRI 04/01/25 16:35 IMPRESSION: 1. Small focus in the right frontal lobe white matter most likely ischemic. 2. No evidence of acute intracranial process. 3. No abnormal enhancement. Lumbar Puncture Fluoroscopy 04/02/25 15:46 IMPRESSION: 1. Successful fluoro-guided lumbar puncture with elevated opening pressure of 29 cm water. Cervical Spine MRI 04/04/25 13:10 IMPRESSION: 1. Moderate to severely limited study due to motion artifact. 2. Mild to moderate cervical spondylosis with only minimal central canal stenosis. 3. No evident cord signal abnormalities or abnormally enhancing lesions identified. Thoracic Spine MRI 04/04/25 13:19 IMPRESSION: 1. Mild thoracic spondylosis. 2. No definitive cord signal abnormalities or abnormally enhancing lesions. Evaluation of cord signal is however moderately limited by motion artifact and relatively mild on the sagittal images but moderate severity on the axial imaging. Lumbar Spine MRI 04/04/25 13:27 IMPRESSION: 1. Mild lumbar spondylosis with instrumented L3-S1 anterior spinal fusion. Renal Ultrasound 04/09/25 19:00 IMPRESSION: Unremarkable renal sonogram findings. Labs Labs: Laboratory Results - last 24 hr 04/13/25 05:05 WBC 4.1 L RBC 3.06 L Hgb 9.3 L Hct 28.5 L MCV 93.1 MCH 30.4 MCHC 32.6 RDW 15.6 H Plt Count 251 MPV 10.5 H Sodium 135 L Potassium 4.0 Chloride 102 Carbon Dioxide 25 Anion Gap 8 BUN 9 Creatinine 0.82 Estim Creat Clear Calc 95 Estimated GFR > 60 Glucose 107 Calcium 9.4 Magnesium 1.4 L Total Bilirubin 0.5 AST 88 H ALT 79 H Alkaline Phosphatase 121 Total Protein 6.6 Albumin 3.6 Quality VTE Prophylaxis VTE prophylaxis: mechanical ordered (SCDs)
[2025-04-13] MEDS: methocarbamoL 750 MG TABLET PO (23:55)
[2025-04-14] VITALS (7 sets, daily range): BP systolic 114–149; BP diastolic 77–97; PULSE 89–108; RESP 18–20; TEMP 36.6–36.9; O2SAT 95–97
[2025-04-14 04:47] LABS: Hematocrit 28.8 % (42.0-52.0); Hemoglobin 9.6 g/dL (14.0-18.0); Mean Corpuscular HGB Conc 33.3 g/dl (32-36); Mean Corpuscular Hemoglobin 30.6 pg (26-34); Mean Corpuscular Volume 91.7 fl (80-100); Mean Platelet Volume 10.7 fl (7.4-10.4); Platelet Count Result 255 k/mm3 (150-375); Red Blood Count 3.14 M/mm3 (4.6-6.20); Red Cell Distribution Width 15.9 % (11.5-14.5); White Blood Count 4.8 K/mm3 (4.5-10.0)
[2025-04-14 05:21] LABS: Alanine Aminotransferase 68 U/L (6-50); Albumin Level 3.8 g/dL (3.5-5.1); Alkaline Phosphatase 108 U/L (38-126); Anion Gap 8 mmol/L (4-12); Aspartate Amino Transferase 66 U/L (17-59); Bilirubin,Total 0.6 mg/dL (0.2-1.3); Blood Urea Nitrogen 10 mg/dL (9-20); Calcium 9.7 mg/dL (8.4-10.2); Carbon Dioxide 25 mmol/L (22-30); Chloride 101 mmol/L (98-107); Estimated CRCL calculation 103 ml/min; Estimated Glomerular Filt Rate > 60; Glucose 108 mg/dL (65-110); Magnesium 1.8 mg/dL (1.6-2.3); Potassium 3.9 mmol/L (3.4-5.0); Sodium 134 mmol/L (137-145); Total Protein 6.8 g/dL (6.3-8.2)
[2025-04-14] MEDS: ACYCLOVIR SODIUM IVPB 900 MG in DEXTROSE 5% IN WATER 250 ML 250 MG IVPB ×2 (05:35→12:59)
[2025-04-14] MEDS: LEVOTHYROXINE SODIUM 50 MCG TABLET PO (05:35)
[2025-04-14] MEDS: HYDROcodone/acetaminophen (*CRX) 5-325 MG TABLET 1 TAB PO ×2 (05:43→12:58)
[2025-04-14] MEDS: PANTOPRAZOLE 40 MG TABLET PO (08:46)
[2025-04-14] MEDS: BISACODYL 5 MG TABLET EC PO (08:46)
[2025-04-14] MEDS: lisinopriL 20 MG TABLET PO (08:46)
[2025-04-14] MEDS: PREGABALIN (*CRX) 75 MG CAPSULE 150 MG PO ×3 (08:46→16:36)
[2025-04-14] MEDS: FOLIC ACID 1 MG TABLET PO (08:46)
[2025-04-14] MEDS: CITALOPRAM HYDROBROMIDE 10 MG TABLET PO (08:47)
[2025-04-14] MEDS: ENOXAPARIN 40 MG/0.4 ML SYRINGE SUB-Q (08:47)
[2025-04-14] MEDS: methocarbamoL 750 MG TABLET PO ×2 (08:51→16:39)
[2025-04-14] MEDS: THIAMINE HCL 100 MG TABLET 500 MG PO (09:05)
--- NOTE | 2025-04-14 11:39 | PCOTNOTE ---
Attempted to see Patient for OT treatment session at this time. Patient refuses to participate, states he can not stop having diarrhea with all movement and has had no sleep.
--- NOTE | 2025-04-14 12:17 | PCNFU ---
Nutrition Follow-Up Complete: Inadequate oral intake related to loss of appetite as evidenced by intakes 0-10% Goal: PO intake as tolerated Patient has limited progress towards goal. We will continue current goal. Pt current nutrition is Heart Healthy/Easy to Chew Level 7 with Ensure Enlive. Last recorded weight is 80 kg, down from 86 kg on admit. Bowel Motility: Last reported BM 04/13 Labs Reviewed: Na 134, Hct 28.8, Hgb 9.6 Meds Noted: Folic Acid, Protonix, Lovenox. Skin: WNL Additional Notes: Patient oral intake has been poor. Spoke with patient today, he is drinking 4-5 diet supplements daily and now having lose stools. Discussed limiting diet supplements and increasing oral intake with diet. Monitoring intakes, weights, labs, supplement tolerance, plan of care Follow up in 5 days
--- NOTE | 2025-04-14 17:28 | PM.IMPN ---
Progress Note: A&P Assessment and Plan (1) Acute hypokalemia: Code(s): E87.6 - Hypokalemia Status: Acute (2) Acute hyponatremia: Code(s): E87.1 - Hypo-osmolality and hyponatremia Status: Acute (3) Hepatic steatosis: Code(s): K76.0 - Fatty (change of) liver, not elsewhere classified Status: Chronic (4) Generalized weakness: Code(s): R53.1 - Weakness Status: Acute (5) Heavy alcohol consumption: Code(s): F10.90 - Alcohol use, unspecified, uncomplicated Status: Chronic (6) Metabolic alkalosis with respiratory acidosis: Code(s): E87.4 - Mixed disorder of acid-base balance Status: Acute (7) Acute anemia: Code(s): D64.9 - Anemia, unspecified Status: Acute (8) Dysmetria: Code(s): R27.8 - Other lack of coordination Status: Acute (9) Abnormal lateral conjugate gaze: Code(s): H51.8 - Other specified disorders of binocular movement Status: Acute (10) Alcohol abuse: Code(s): F10.10 - Alcohol abuse, uncomplicated Status: Acute (11) Ataxia: Code(s): R27.0 - Ataxia, unspecified Status: Acute (12) Tobacco abuse: Code(s): Z72.0 - Tobacco use Status: Chronic Plan patient with long history of alcohol abuse, presented with twitching, his B12 level is normal, he is poor historian, patient is monitored with CIWA protocol, will continue Librium 25mg q6 for 1 days and then taper to q8 and monitor, increased lyrica to 150mg TID from 100mg TID and increase thiamin to 500mg daily from 100mg, on 04/06 gave Ativan 1mg IV x1, today patient is twitching less, and his clinical symptoms are improving, seen the patient the neurologist and examine the neurologist 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 on 04/09 patient BUN and Scr were risen to 28/2.91 patient was started on IVF 125cc/hr his BUN and Scr are trending down today to 13/.92, will stop IVF, will monitor, patient is encourage to increase fluids intake, renal US is normal, discuss with neurologist patient clinicall symptoms are improving, patient is present in the room, gave updates, patient is not motivated to participate in PT, started antidepressant Celexa 10mg PO qd, will have PT/OT evaluate the patient. 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 He needs to stop drinking alcohol, and participate in physical therapy with extra motivation to recover muscles strength. will monitor. patient BUN and SCr are now close to normal. Today had a long discussion with the patient while his was present in the room, patient is not motivated and does not fully participate in the PT, he does not eat and has lost close 10kg, patient has agreed to participate in the PT, will eat more food to help him heal, his family will also bring food and patient is asked if needed he can order extra portion for diet. will continue to monitor. waiting for the placement. Alcohol neuropathy, stroke, cord compression vs electrolyte imbalance vs Wernicke's Korsakoff syndrome B12/folate wnl Patient is a heavy alcoholic, LAD was 3/7 MRI w/ow brain possible ischemic focus ECHO showed normal LV function , MRI total spine no acute findings CSF showed albuminocytologic dissociation, f/u cultures and PCRs Discussed with Dr Knowles, neurologist, noted he suspects Encephalitis in addition to alcohol withdrawal EEg pending PT/OT Neurology following Anemia Hb 9.8 Isat 77 monitor Hyponatremia, reoslved Na 133, Nephrology evaluated and noted that patient has chronci hyponatremia on currently within his baseline. monitor Alcohol abuse/withdrawal with hallucination CIWA, continue Thiamine and folate DVT prophylaxis on Sq lovenox Subjective Date/time seen: 04/14/25 17:28 Interval history: patient with long history of alcohol abuse, presented with twitching, his B12 level is normal, he is poor historian, patient is monitored with CIWA protocol, will continue Librium 25mg q6 for 1 days and then taper to q8 and monitor, increased lyrica to 150mg TID from 100mg TID and increase thiamin to 500mg daily from 100mg, on 04/06 gave Ativan 1mg IV x1, today patient is twitching less, and his clinical symptoms are improving, seen the patient the neurologist and examine the neurologist 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 on 04/09 patient BUN and Scr were risen to 28/2.91 patient was started on IVF 125cc/hr his BUN and Scr are trending down today to 13/.92, will stop IVF, will monitor, patient is encourage to increase fluids intake, renal US is normal, discuss with neurologist patient clinicall symptoms are improving, patient is present in the room, gave updates, patient is not motivated to participate in PT, started antidepressant Celexa 10mg PO qd, will have PT/OT evaluate the patient. 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 He needs to stop drinking alcohol, and participate in physical therapy with extra motivation to recover muscles strength. will monitor. patient BUN and SCr are now close to normal. Today had a long discussion with the patient while his was present in the room, patient is not motivated and does not fully participate in the PT, he does not eat and has lost close 10kg, patient has agreed to participate in the PT, will eat more food to help him heal, his family will also bring food and patient is asked if needed he can order extra portion for diet. will continue to monitor. waiting for the placement. Review of Systems Review of Systems: 12 systems were reviewed with pertinent positives and negatives per HPI. Except as documented in the HPI, all other systems were reviewed and are negative. Exam Narrative: Patient is comfortable, NAD HEENT: eyes are clear and none icteric LUNGS:CTA HEART: RR S1S2 ABD: BS+, Soft and nontender Lower extremities: no edema SKIN: nonjaundiced Neuro: grossly intact. twitching Objective Data Vital Signs Vital Signs: Vital Signs - 24 hr 04/13/25 20:12 04/13/25 22:00 04/14/25 00:00 Temperature 36.7 C Pulse Rate 96 99 96 Respiratory Rate 18 Blood Pressure 116/82 Pulse Oximetry 100 04/14/25 04:00 04/14/25 06:00 04/14/25 08:00 Temperature 36.7 C Pulse Rate 92 89 96 Respiratory Rate 18 Blood Pressure 149/97 H Pulse Oximetry 95 04/14/25 14:00 Temperature 36.6 C Pulse Rate 92 Respiratory Rate 18 Blood Pressure 148/80 H Pulse Oximetry 95 Intake/Output Intake/Output: Intake & Output 04/11/25 04/12/25 04/13/25 04/14/25 23:59 23:59 23:59 23:59 Intake Total 4293.9 2518.1 2304 268 Output Total 2850 2550 2950 1200 Balance 1443.9 -31.9 -646 -932 Meds/Results Medications: Active Medications Generic Name Dose Route Start Last Admin Trade Name Freq PRN Reason Stop Dose Admin Acetaminophen 650 mg 04/06/25 20:06 04/10/25 21:41 Acetaminophen 325 Mg Tablet PO 650 mg Q4H PRN Administration Mild Pain (1-3) or Fever Hydrocodone Bitart/Acetaminophen 1 tab 03/30/25 21:18 04/14/25 12:58 Hydrocodone/Acetaminophen (*Crx) 5-325 Mg Tablet PO 1 tab Q6H PRN Administration Pain Rated 7-10 Artificial Tears 1 drop 04/01/25 12:59 Artificial Tears Ophth Soln 15 Ml Bottle EACH EYE QID PRN Dry Eye(s) Bisacodyl 5 mg 04/04/25 09:00 04/14/25 08:46 Bisacodyl 5 Mg Tablet Ec PO 5 mg QAM BRYON Administration Chlordiazepoxide HCl 25 mg 04/08/25 12:35 04/11/25 10:10 Chlordiazepoxide (*Crx) 25 Mg Capsule PO 25 mg Q6H PRN Administration Withdrawal Citalopram Hydrobromide 10 mg 04/10/25 13:25 04/14/25 08:47 Citalopram Hydrobromide 10 Mg Tablet PO 10 mg QAM BRYON Administration Enoxaparin Sodium 40 mg 04/01/25 09:00 04/14/25 08:47 Enoxaparin 40 Mg/0.4 Ml Syringe SUB-Q 40 mg DAILY BRYON Administration Folic Acid 1 mg 03/31/25 09:00 04/14/25 08:46 Folic Acid 1 Mg Tablet PO 1 mg DAILY BRYON Administration Acyclovir Sodium 900 mg/ 268 mls @ 250 mls/hr 04/12/25 15:00 04/14/25 12:59 Dextrose IVPB 04/15/25 07:00 250 mls/hr Q8HR BRYON Administration Acyclovir Sodium 800 mg/ 266 mls @ 250 mls/hr 04/15/25 14:00 Dextrose IVPB Q8H BRYON Levothyroxine Sodium 50 mcg 03/31/25 06:30 04/14/25 05:35 Levothyroxine Sodium 50 Mcg Tablet PO 50 mcg DAILY@0630 BRYON Administration Lisinopril 20 mg 03/31/25 09:00 04/14/25 08:46 Lisinopril 20 Mg Tablet PO 20 mg DAILY BRYON Administration Loperamide HCl 2 mg 04/10/25 17:55 04/12/25 03:24 Loperamide Hcl 2 Mg Capsule PO 2 mg Q8HR PRN Administration Diarrhea Methocarbamol 750 mg 03/31/25 02:49 04/14/25 16:39 Methocarbamol 750 Mg Tablet PO 750 mg TID PRN Administration muscle spasm Miscellaneous Information 0 each 04/08/25 00:01 04/11/25 21:20 Please Renew [place]. Per [employer] Procedure, It Will Discontinue If Not Renewed XX 05/08/25 00:00 Not Given CLARIFY BRYON Pantoprazole Sodium 40 mg 03/31/25 09:00 04/14/25 08:46 Pantoprazole 40 Mg Tablet PO 40 mg QAM BRYON Administration Polyethylene Glycol 17 gm 04/03/25 11:59 Polyethylene Glycol 3350 17 Gm Powd.Pack PO DAILY PRN Constipation Pregabalin 150 mg 04/06/25 17:00 04/14/25 16:36 Pregabalin (*Crx) 75 Mg Capsule PO 150 mg TID BRYON Administration Thiamine HCl 500 mg 04/06/25 13:00 04/14/25 09:05 Thiamine Hcl 100 Mg Tablet PO 500 mg QAM BRYON Administration Radiology Results: ITS Impressions Chest X-Ray 03/30/25 14:28 Impression: 1: Left basilar atelectasis. Head CT 03/30/25 14:51 IMPRESSION: 1. No acute intracranial process. Abdomen/Pelvis CT 03/30/25 16:42 IMPRESSION: 1. No acute intra-abdominal/pelvic process. 2. Mild diffuse bladder wall thickening and small posterior bladder diverticulum suggestive of sequela of chronic outlet obstruction Brain MRI 04/01/25 16:35 IMPRESSION: 1. Small focus in the right frontal lobe white matter most likely ischemic. 2. No evidence of acute intracranial process. 3. No abnormal enhancement. Lumbar Puncture Fluoroscopy 04/02/25 15:46 IMPRESSION: 1. Successful fluoro-guided lumbar puncture with elevated opening pressure of 29 cm water. Cervical Spine MRI 04/04/25 13:10 IMPRESSION: 1. Moderate to severely limited study due to motion artifact. 2. Mild to moderate cervical spondylosis with only minimal central canal stenosis. 3. No evident cord signal abnormalities or abnormally enhancing lesions identified. Thoracic Spine MRI 04/04/25 13:19 IMPRESSION: 1. Mild thoracic spondylosis. 2. No definitive cord signal abnormalities or abnormally enhancing lesions. Evaluation of cord signal is however moderately limited by motion artifact and relatively mild on the sagittal images but moderate severity on the axial imaging. Lumbar Spine MRI 04/04/25 13:27 IMPRESSION: 1. Mild lumbar spondylosis with instrumented L3-S1 anterior spinal fusion. Renal Ultrasound 04/09/25 19:00 IMPRESSION: Unremarkable renal sonogram findings. Labs Labs: Laboratory Results - last 24 hr 04/14/25 04:33 WBC 4.8 RBC 3.14 L Hgb 9.6 L Hct 28.8 L MCV 91.7 MCH 30.6 MCHC 33.3 RDW 15.9 H Plt Count 255 MPV 10.7 H Sodium 134 L Potassium 3.9 Chloride 101 Carbon Dioxide 25 Anion Gap 8 BUN 10 Creatinine 0.75 Estim Creat Clear Calc 103 Estimated GFR > 60 Glucose 108 Calcium 9.7 Magnesium 1.8 Total Bilirubin 0.6 AST 66 H ALT 68 H Alkaline Phosphatase 108 Total Protein 6.8 Albumin 3.8 Quality VTE Prophylaxis VTE prophylaxis: mechanical ordered (SCDs)
--- NOTE | 2025-04-14 18:45 | PC.NURSE ---
Educated patient extensively on the importance of turning every 2 hours. Discussed how a pressure ulcer forms and what the complications are that come with one. Patient has very poor nutrition. Discussed how proper nutrition and turning regularly are glez factors in preventing pressure wounds. Attempted to roll patient to side with pillow and he stated that's too much. This nurse again enforced the need to turn to prevent wounds from forming. Patient stated we'll see and remained on his back.
[2025-04-15] MEDS: HYDROcodone/acetaminophen (*CRX) 5-325 MG TABLET 1 TAB PO ×4 (01:42→22:21)
[2025-04-15] MEDS: LEVOTHYROXINE SODIUM 50 MCG TABLET PO (05:56)
[2025-04-15 05:59] LABS: Hemoglobin 10.2 g/dL (14.0-18.0); Mean Corpuscular HGB Conc 32.9 g/dl (32-36); Mean Corpuscular Hemoglobin 30.3 pg (26-34); Mean Platelet Volume 10.8 fl (7.4-10.4); Platelet Count Result 270 k/mm3 (150-375); Red Blood Count 3.37 M/mm3 (4.6-6.20); Red Cell Distribution Width 16.5 % (11.5-14.5); White Blood Count 6.1 K/mm3 (4.5-10.0)
[2025-04-15 06:09] LABS: Alanine Aminotransferase 64 U/L (6-50); Alkaline Phosphatase 97 U/L (38-126); Anion Gap 10 mmol/L (4-12); Aspartate Amino Transferase 65 U/L (17-59); Bilirubin,Total 0.5 mg/dL (0.2-1.3); Blood Urea Nitrogen 11 mg/dL (9-20); Calcium 9.8 mg/dL (8.4-10.2); Carbon Dioxide 25 mmol/L (22-30); Chloride 100 mmol/L (98-107); Estimated CRCL calculation 107 ml/min; Estimated Glomerular Filt Rate > 60; Glucose 100 mg/dL (65-110); Magnesium 1.7 mg/dL (1.6-2.3); Potassium 3.8 mmol/L (3.4-5.0); Sodium 135 mmol/L (137-145)
[2025-04-15] MEDS: PREGABALIN (*CRX) 75 MG CAPSULE 150 MG PO ×3 (08:35→18:03)
[2025-04-15] MEDS: lisinopriL 20 MG TABLET PO (08:35)
[2025-04-15] MEDS: FOLIC ACID 1 MG TABLET PO (08:35)
[2025-04-15] MEDS: PANTOPRAZOLE 40 MG TABLET PO (08:35)
[2025-04-15] MEDS: CITALOPRAM HYDROBROMIDE 10 MG TABLET PO (08:35)
[2025-04-15] MEDS: ENOXAPARIN 40 MG/0.4 ML SYRINGE SUB-Q (08:36)
[2025-04-15] MEDS: THIAMINE HCL 100 MG TABLET 500 MG PO (08:36)
[2025-04-15 09:16] VITALS: BP 118/85; PULSE 94; RESP 16; TEMP 36.3; O2SAT 97
[2025-04-15 14:48] VITALS: BP 92/66; PULSE 103; RESP 20; TEMP 36.3; O2SAT 99
--- NOTE | 2025-04-15 17:02 | PM.IMPN ---
Progress Note: A&P Assessment and Plan (1) Acute hypokalemia: Code(s): E87.6 - Hypokalemia Status: Acute (2) Acute hyponatremia: Code(s): E87.1 - Hypo-osmolality and hyponatremia Status: Acute (3) Hepatic steatosis: Code(s): K76.0 - Fatty (change of) liver, not elsewhere classified Status: Chronic (4) Generalized weakness: Code(s): R53.1 - Weakness Status: Acute (5) Heavy alcohol consumption: Code(s): F10.90 - Alcohol use, unspecified, uncomplicated Status: Chronic (6) Metabolic alkalosis with respiratory acidosis: Code(s): E87.4 - Mixed disorder of acid-base balance Status: Acute (7) Acute anemia: Code(s): D64.9 - Anemia, unspecified Status: Acute (8) Dysmetria: Code(s): R27.8 - Other lack of coordination Status: Acute (9) Abnormal lateral conjugate gaze: Code(s): H51.8 - Other specified disorders of binocular movement Status: Acute (10) Alcohol abuse: Code(s): F10.10 - Alcohol abuse, uncomplicated Status: Acute (11) Ataxia: Code(s): R27.0 - Ataxia, unspecified Status: Acute (12) Tobacco abuse: Code(s): Z72.0 - Tobacco use Status: Chronic Plan patient with long history of alcohol abuse, presented with twitching, his B12 level is normal, he is poor historian, patient is monitored with CIWA protocol, will continue Librium 25mg q6 for 1 days and then taper to q8 and monitor, increased lyrica to 150mg TID from 100mg TID and increase thiamin to 500mg daily from 100mg, on 04/06 gave Ativan 1mg IV x1, today patient is twitching less, and his clinical symptoms are improving, seen the patient the neurologist and examine the neurologist 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 on 04/09 patient BUN and Scr were risen to 28/2.91 patient was started on IVF 125cc/hr his BUN and Scr are trending down today to 13/.92, will stop IVF, will monitor, patient is encourage to increase fluids intake, renal US is normal, discuss with neurologist patient clinicall symptoms are improving, patient is present in the room, gave updates, patient is not motivated to participate in PT, started antidepressant Celexa 10mg PO qd, will have PT/OT evaluate the patient. 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 He needs to stop drinking alcohol, and participate in physical therapy with extra motivation to recover muscles strength. will monitor. patient BUN and SCr are now close to normal. on 04/14, I had a long discussion with the patient while his was present in the room, patient is not motivated and does not fully participate in the PT, he does not eat and has lost close 10kg, patient has agreed to participate in the PT, will eat more food to help him heal, his family will also bring food and patient is asked if needed he can order extra portion for diet. will continue to monitor. waiting for the placement. Today patient stats he did participate with PT and his was present during the therapy. he also ate most of his meals, and he appears more relaxed and comfortable, patient is waiting for placement. Alcohol neuropathy, stroke, cord compression vs electrolyte imbalance vs Wernicke's Korsakoff syndrome B12/folate wnl Patient is a heavy alcoholic, LAD was 3/7 MRI w/ow brain possible ischemic focus ECHO showed normal LV function , MRI total spine no acute findings CSF showed albuminocytologic dissociation, f/u cultures and PCRs Discussed with Dr Knowles, neurologist, noted he suspects Encephalitis in addition to alcohol withdrawal EEg pending PT/OT Neurology following Anemia Hb 9.8 Isat 77 monitor Hyponatremia, reoslved Na 133, Nephrology evaluated and noted that patient has chronci hyponatremia on currently within his baseline. monitor Alcohol abuse/withdrawal with hallucination CIWA, continue Thiamine and folate DVT prophylaxis on Sq lovenox Subjective Date/time seen: 04/15/25 17:02 Interval history: patient with long history of alcohol abuse, presented with twitching, his B12 level is normal, he is poor historian, patient is monitored with CIWA protocol, will continue Librium 25mg q6 for 1 days and then taper to q8 and monitor, increased lyrica to 150mg TID from 100mg TID and increase thiamin to 500mg daily from 100mg, on 04/06 gave Ativan 1mg IV x1, today patient is twitching less, and his clinical symptoms are improving, seen the patient the neurologist and examine the neurologist 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 on 04/09 patient BUN and Scr were risen to 28/2.91 patient was started on IVF 125cc/hr his BUN and Scr are trending down today to 13/.92, will stop IVF, will monitor, patient is encourage to increase fluids intake, renal US is normal, discuss with neurologist patient clinicall symptoms are improving, patient is present in the room, gave updates, patient is not motivated to participate in PT, started antidepressant Celexa 10mg PO qd, will have PT/OT evaluate the patient. 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 He needs to stop drinking alcohol, and participate in physical therapy with extra motivation to recover muscles strength. will monitor. patient BUN and SCr are now close to normal. on 04/14 I had a long discussion with the patient while his was present in the room, patient is not motivated and does not fully participate in the PT, he does not eat and has lost close 10kg, patient has agreed to participate in the PT, will eat more food to help him heal, his family will also bring food and patient is asked if needed he can order extra portion for diet. will continue to monitor. waiting for the placement. Today patient stats he did participate with PT and his was present during the therapy. he also ate most of his meals, and he appears more relaxed and comfortable, patient is waiting for placement. Review of Systems Review of Systems: 12 systems were reviewed with pertinent positives and negatives per HPI. Except as documented in the HPI, all other systems were reviewed and are negative. Exam Narrative: Patient is comfortable, NAD HEENT: eyes are clear and none icteric LUNGS:CTA HEART: RR S1S2 ABD: BS+, Soft and nontender Lower extremities: no edema SKIN: nonjaundiced Neuro: grossly intact. twitching Objective Data Vital Signs Vital Signs: Vital Signs - 24 hr 04/14/25 20:04 04/14/25 22:00 04/15/25 08:30 Temperature 36.9 C Pulse Rate 105 H 108 H Respiratory Rate 20 18 Blood Pressure 114/77 Pulse Oximetry 97 96 Oxygen Delivery Room Air Room Air Fraction of Inspired Oxygen 21 04/15/25 09:16 04/15/25 14:48 Temperature 36.3 C L 36.3 C L Pulse Rate 94 103 H Respiratory Rate 16 20 Blood Pressure 118/85 92/66 L Pulse Oximetry 97 99 Oxygen Delivery Fraction of Inspired Oxygen Intake/Output Intake/Output: Intake & Output 04/12/25 04/13/25 04/14/25 04/15/25 23:59 23:59 23:59 23:59 Intake Total 2518.1 2304 988 120 Output Total 2550 2950 1750 1350 Balance -31.9 -646 -762 -1230 Meds/Results Medications: Active Medications Generic Name Dose Route Start Last Admin Trade Name Freq PRN Reason Stop Dose Admin Acetaminophen 650 mg 04/06/25 20:06 04/10/25 21:41 Acetaminophen 325 Mg Tablet PO 650 mg Q4H PRN Administration Mild Pain (1-3) or Fever Hydrocodone Bitart/Acetaminophen 1 tab 03/30/25 21:18 04/15/25 15:51 Hydrocodone/Acetaminophen (*Crx) 5-325 Mg Tablet PO 1 tab Q6H PRN Administration Pain Rated 7-10 Artificial Tears 1 drop 04/01/25 12:59 Artificial Tears Ophth Soln 15 Ml Bottle EACH EYE QID PRN Dry Eye(s) Bisacodyl 5 mg 04/04/25 09:00 04/15/25 08:35 Bisacodyl 5 Mg Tablet Ec PO Not Given QAM BRYON Chlordiazepoxide HCl 25 mg 04/08/25 12:35 04/11/25 10:10 Chlordiazepoxide (*Crx) 25 Mg Capsule PO 25 mg Q6H PRN Administration Withdrawal Citalopram Hydrobromide 10 mg 04/10/25 13:25 04/15/25 08:35 Citalopram Hydrobromide 10 Mg Tablet PO 10 mg QAM BRYON Administration Enoxaparin Sodium 40 mg 04/01/25 09:00 04/15/25 08:36 Enoxaparin 40 Mg/0.4 Ml Syringe SUB-Q 40 mg DAILY BRYON Administration Folic Acid 1 mg 03/31/25 09:00 04/15/25 08:35 Folic Acid 1 Mg Tablet PO 1 mg DAILY BRYON Administration Levothyroxine Sodium 50 mcg 03/31/25 06:30 04/15/25 05:56 Levothyroxine Sodium 50 Mcg Tablet PO 50 mcg DAILY@0630 [facility] Administration Lisinopril 20 mg 03/31/25 09:00 04/15/25 08:35 Lisinopril 20 Mg Tablet PO 20 mg DAILY BRYON Administration Loperamide HCl 2 mg 04/10/25 17:55 04/12/25 03:24 Loperamide Hcl 2 Mg Capsule PO 2 mg Q8HR PRN Administration Diarrhea Methocarbamol 750 mg 03/31/25 02:49 04/14/25 16:39 Methocarbamol 750 Mg Tablet PO 750 mg TID PRN Administration muscle spasm Pantoprazole Sodium 40 mg 03/31/25 09:00 04/15/25 08:35 Pantoprazole 40 Mg Tablet PO 40 mg QAM BRYON Administration Polyethylene Glycol 17 gm 04/03/25 11:59 Polyethylene Glycol 3350 17 Gm Powd.Pack PO DAILY PRN Constipation Pregabalin 150 mg 04/06/25 17:00 04/15/25 12:39 Pregabalin (*Crx) 75 Mg Capsule PO 150 mg TID BRYON Administration Thiamine HCl 500 mg 04/06/25 13:00 04/15/25 08:36 Thiamine Hcl 100 Mg Tablet PO 500 mg QAM BRYON Administration Radiology Results: ITS Impressions Chest X-Ray 03/30/25 14:28 Impression: 1: Left basilar atelectasis. Head CT 03/30/25 14:51 IMPRESSION: 1. No acute intracranial process. Abdomen/Pelvis CT 03/30/25 16:42 IMPRESSION: 1. No acute intra-abdominal/pelvic process. 2. Mild diffuse bladder wall thickening and small posterior bladder diverticulum suggestive of sequela of chronic outlet obstruction Brain MRI 04/01/25 16:35 IMPRESSION: 1. Small focus in the right frontal lobe white matter most likely ischemic. 2. No evidence of acute intracranial process. 3. No abnormal enhancement. Lumbar Puncture Fluoroscopy 04/02/25 15:46 IMPRESSION: 1. Successful fluoro-guided lumbar puncture with elevated opening pressure of 29 cm water. Cervical Spine MRI 04/04/25 13:10 IMPRESSION: 1. Moderate to severely limited study due to motion artifact. 2. Mild to moderate cervical spondylosis with only minimal central canal stenosis. 3. No evident cord signal abnormalities or abnormally enhancing lesions identified. Thoracic Spine MRI 04/04/25 13:19 IMPRESSION: 1. Mild thoracic spondylosis. 2. No definitive cord signal abnormalities or abnormally enhancing lesions. Evaluation of cord signal is however moderately limited by motion artifact and relatively mild on the sagittal images but moderate severity on the axial imaging. Lumbar Spine MRI 04/04/25 13:27 IMPRESSION: 1. Mild lumbar spondylosis with instrumented L3-S1 anterior spinal fusion. Renal Ultrasound 04/09/25 19:00 IMPRESSION: Unremarkable renal sonogram findings. Labs Labs: Laboratory Results - last 24 hr 04/15/25 05:15 WBC 6.1 RBC 3.37 L Hgb 10.2 L Hct 31.0 L MCV 92.0 MCH 30.3 MCHC 32.9 RDW 16.5 H Plt Count 270 MPV 10.8 H Sodium 135 L Potassium 3.8 Chloride 100 Carbon Dioxide 25 Anion Gap 10 BUN 11 Creatinine 0.72 Estim Creat Clear Calc 107 Estimated GFR > 60 Glucose 100 Calcium 9.8 Magnesium 1.7 Total Bilirubin 0.5 AST 65 H ALT 64 H Alkaline Phosphatase 97 Total Protein 7.0 Albumin 4.0 Quality VTE Prophylaxis VTE prophylaxis: mechanical ordered (SCDs)
[2025-04-15] MEDS: methocarbamoL 750 MG TABLET PO (18:07)
[2025-04-15 21:02] VITALS: BP 123/87; PULSE 105; RESP 18; TEMP 36.8; O2SAT 96
[2025-04-16 04:27] VITALS: BP 136/95; PULSE 90; RESP 12; TEMP 36.7; O2SAT 97
[2025-04-16] MEDS: HYDROcodone/acetaminophen (*CRX) 5-325 MG TABLET 1 TAB PO ×3 (04:45→20:20)
[2025-04-16] MEDS: LEVOTHYROXINE SODIUM 50 MCG TABLET PO (05:39)
[2025-04-16] MEDS: FOLIC ACID 1 MG TABLET PO (08:36)
[2025-04-16] MEDS: CITALOPRAM HYDROBROMIDE 10 MG TABLET PO (08:36)
[2025-04-16] MEDS: PANTOPRAZOLE 40 MG TABLET PO (08:37)
[2025-04-16] MEDS: lisinopriL 20 MG TABLET PO (08:37)
[2025-04-16] MEDS: ENOXAPARIN 40 MG/0.4 ML SYRINGE SUB-Q (08:37)
[2025-04-16] MEDS: PREGABALIN (*CRX) 75 MG CAPSULE 150 MG PO ×3 (08:37→18:24)
[2025-04-16] MEDS: THIAMINE HCL 100 MG TABLET 500 MG PO (08:38)
[2025-04-16] MEDS: methocarbamoL 750 MG TABLET PO ×2 (09:01→20:20)
[2025-04-16] MEDS: polyethylene glycoL 3350 17 GM POWD.PACK PO (12:17)
[2025-04-16 14:02] VITALS: BP 96/70; PULSE 105; RESP 18; TEMP 36.8; O2SAT 100
--- NOTE | 2025-04-16 14:59 | PM.IMPN ---
Progress Note: A&P Assessment and Plan (1) Acute hypokalemia: Code(s): E87.6 - Hypokalemia Status: Acute (2) Acute hyponatremia: Code(s): E87.1 - Hypo-osmolality and hyponatremia Status: Acute (3) Hepatic steatosis: Code(s): K76.0 - Fatty (change of) liver, not elsewhere classified Status: Chronic (4) Generalized weakness: Code(s): R53.1 - Weakness Status: Acute (5) Heavy alcohol consumption: Code(s): F10.90 - Alcohol use, unspecified, uncomplicated Status: Chronic (6) Metabolic alkalosis with respiratory acidosis: Code(s): E87.4 - Mixed disorder of acid-base balance Status: Acute (7) Acute anemia: Code(s): D64.9 - Anemia, unspecified Status: Acute (8) Dysmetria: Code(s): R27.8 - Other lack of coordination Status: Acute (9) Abnormal lateral conjugate gaze: Code(s): H51.8 - Other specified disorders of binocular movement Status: Acute (10) Alcohol abuse: Code(s): F10.10 - Alcohol abuse, uncomplicated Status: Acute (11) Ataxia: Code(s): R27.0 - Ataxia, unspecified Status: Acute (12) Tobacco abuse: Code(s): Z72.0 - Tobacco use Status: Chronic Plan patient with long history of alcohol abuse, presented with twitching worsen over the past few months. 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 on 04/09 patient BUN and Scr were risen to 28/2.91 patient was started on IVF 125cc/hr his BUN and Scr trended down to resolution of renal failure.. Renal US is normal, PT OT evaluated. patient is not motivated to participate in PT, started antidepressant Celexa 10mg PO qd, Alcohol neuropathy, stroke, cord compression vs electrolyte imbalance vs Wernicke's Korsakoff syndrome B12/folate wnl Patient is a heavy alcoholic, LAD was 3/7 MRI w/ow brain possible ischemic focus ECHO showed normal LV function , MRI total spine no acute findings CSF showed albuminocytologic dissociation, f/u cultures and PCRs Discussed with Dr Knowles, neurologist, noted he suspects Encephalitis in addition to alcohol withdrawal EEg no significant abnormalities PT/OT Neurology following Anemia Hb 9.8 Isat 77 monitor Hyponatremia, reoslved Na 133, Nephrology evaluated and noted that patient has chronci hyponatremia on currently within his baseline. monitor Alcohol abuse/withdrawal with hallucination CIWA, continue Thiamine and folate Prostatomegaly check PSA Hypogammaglobulinemia Evidence of bladder outlet obstruction now on Cortez catheter DVT prophylaxis on Sq lovenox Subjective Date/time seen: 04/16/25 14:59 Interval history: chart reviewed. no new complaints. no fever, chills. no sob,ches tpain. difficulty walking. Review of Systems Review of Systems: All systems reviewed & are unremarkable except as noted in HPI and below Exam Narrative: Patient is comfortable, NAD HEENT: eyes are clear and none icteric LUNGS:CTA HEART: RR S1S2 ABD: BS+, Soft and nontender Lower extremities: no edema SKIN: nonjaundiced Neuro: grossly intact. twitching Objective Data Vital Signs Vital Signs: Vital Signs - 24 hr 04/15/25 21:02 04/16/25 04:27 04/16/25 08:35 Temperature 98.2 F 98.1 F Pulse Rate 105 H 90 Respiratory Rate 18 12 Blood Pressure 123/87 136/95 H Pulse Oximetry 96 97 Oxygen Delivery Room Air 04/16/25 13:52 Temperature Pulse Rate Respiratory Rate Blood Pressure Pulse Oximetry Oxygen Delivery Room Air Intake/Output Intake/Output: Intake & Output 04/13/25 04/14/25 04/15/25 04/16/25 23:59 23:59 23:59 23:59 Intake Total 2304 988 540 270 Output Total 2950 1750 1600 400 Balance -646 -762 -1060 -130 Meds/Results Medications: Active Medications Generic Name Dose Route Start Last Admin Trade Name Freq PRN Reason Stop Dose Admin Acetaminophen 650 mg 04/06/25 20:06 04/10/25 21:41 Acetaminophen 325 Mg Tablet PO 650 mg Q4H PRN Administration Mild Pain (1-3) or Fever Hydrocodone Bitart/Acetaminophen 1 tab 03/30/25 21:18 04/16/25 12:17 Hydrocodone/Acetaminophen (*Crx) 5-325 Mg Tablet PO 1 tab Q6H PRN Administration Pain Rated 7-10 Artificial Tears 1 drop 04/01/25 12:59 Artificial Tears Ophth Soln 15 Ml Bottle EACH EYE QID PRN Dry Eye(s) Bisacodyl 5 mg 04/04/25 09:00 04/16/25 08:38 Bisacodyl 5 Mg Tablet Ec PO Not Given QAM BRYON Chlordiazepoxide HCl 25 mg 04/08/25 12:35 04/11/25 10:10 Chlordiazepoxide (*Crx) 25 Mg Capsule PO 25 mg Q6H PRN Administration Withdrawal Citalopram Hydrobromide 10 mg 04/10/25 13:25 04/16/25 08:36 Citalopram Hydrobromide 10 Mg Tablet PO 10 mg QAM BRYON Administration Enoxaparin Sodium 40 mg 04/01/25 09:00 04/16/25 08:37 Enoxaparin 40 Mg/0.4 Ml Syringe SUB-Q 40 mg DAILY BRYON Administration Folic Acid 1 mg 03/31/25 09:00 04/16/25 08:36 Folic Acid 1 Mg Tablet PO 1 mg DAILY BRYON Administration Levothyroxine Sodium 50 mcg 03/31/25 06:30 04/16/25 05:39 Levothyroxine Sodium 50 Mcg Tablet PO 50 mcg DAILY@0630 BRYON Administration Lisinopril 20 mg 03/31/25 09:00 04/16/25 08:37 Lisinopril 20 Mg Tablet PO 20 mg DAILY BRYON Administration Loperamide HCl 2 mg 04/10/25 17:55 04/12/25 03:24 Loperamide Hcl 2 Mg Capsule PO 2 mg Q8HR PRN Administration Diarrhea Methocarbamol 750 mg 03/31/25 02:49 04/16/25 09:01 Methocarbamol 750 Mg Tablet PO 750 mg TID PRN Administration muscle spasm Miscellaneous Information 1 each 04/15/25 00:01 04/15/25 18:01 Please Renew _Pregabalin.. Per [employer] Procedure, It Will Discontinue If Not Renewed XX 05/15/25 00:00 Not Given CLARIFY BRYON Pantoprazole Sodium 40 mg 03/31/25 09:00 04/16/25 08:37 Pantoprazole 40 Mg Tablet PO 40 mg QAM BRYON Administration Polyethylene Glycol 17 gm 04/03/25 11:59 04/16/25 12:17 Polyethylene Glycol 3350 17 Gm Powd.Pack PO 17 gm DAILY PRN Administration Constipation Pregabalin 150 mg 04/06/25 17:00 04/16/25 12:17 Pregabalin (*Crx) 75 Mg Capsule PO 150 mg TID BRYON Administration Thiamine HCl 500 mg 04/06/25 13:00 04/16/25 08:38 Thiamine Hcl 100 Mg Tablet PO 500 mg QAM BRYON Administration Radiology Results: ITS Impressions Chest X-Ray 03/30/25 14:28 Impression: 1: Left basilar atelectasis. Head CT 03/30/25 14:51 IMPRESSION: 1. No acute intracranial process. Abdomen/Pelvis CT 03/30/25 16:42 IMPRESSION: 1. No acute intra-abdominal/pelvic process. 2. Mild diffuse bladder wall thickening and small posterior bladder diverticulum suggestive of sequela of chronic outlet obstruction Brain MRI 04/01/25 16:35 IMPRESSION: 1. Small focus in the right frontal lobe white matter most likely ischemic. 2. No evidence of acute intracranial process. 3. No abnormal enhancement. Lumbar Puncture Fluoroscopy 04/02/25 15:46 IMPRESSION: 1. Successful fluoro-guided lumbar puncture with elevated opening pressure of 29 cm water. Cervical Spine MRI 04/04/25 13:10 IMPRESSION: 1. Moderate to severely limited study due to motion artifact. 2. Mild to moderate cervical spondylosis with only minimal central canal stenosis. 3. No evident cord signal abnormalities or abnormally enhancing lesions identified. Thoracic Spine MRI 04/04/25 13:19 IMPRESSION: 1. Mild thoracic spondylosis. 2. No definitive cord signal abnormalities or abnormally enhancing lesions. Evaluation of cord signal is however moderately limited by motion artifact and relatively mild on the sagittal images but moderate severity on the axial imaging. Lumbar Spine MRI 04/04/25 13:27 IMPRESSION: 1. Mild lumbar spondylosis with instrumented L3-S1 anterior spinal fusion. Renal Ultrasound 04/09/25 19:00 IMPRESSION: Unremarkable renal sonogram findings.
[2025-04-16 18:37] LABS: CRP 1.3 mg/dL (<1.0)
[2025-04-16 18:42] LABS: Immunoglobulin A 188 mg/dL (70-400); Immunoglobulin G 759 mg/dL (700-1600); Immunoglobulin M 348 mg/dL (40-230)
[2025-04-16 19:16] LABS: Erythrocyte Sedimentation Rate 119 mm/hr (0-20)
[2025-04-16 20:12] LABS: HIV 1/2 Ab P24 Ag Result Negative (Negative)
[2025-04-16 20:47] LABS: Syphilis IgG/IgM Antibody Non-Reactive (Nonreactive)
[2025-04-16 20:51] LABS: Hepatitis B Surface Antigen Negative (Negative)
[2025-04-16 20:57] LABS: HAV RESULT Negative (Negative); Hepatitis B Core IgM Result Negative (Negative)
[2025-04-16 21:09] VITALS: BP 106/68; PULSE 111; RESP 18; TEMP 36.4; O2SAT 93
[2025-04-16 21:09] LABS: Hepatitis C Virus Antibody Negative (Negative)
[2025-04-17 05:51] LABS: Basophils Absolute Auto 0.1 K/mm3 (0.0-0.1); Eosinophils Absolute Auto 0.1 K/mm3 (0-0.3); Eosinophils Percent Auto 1.3 % (0-4.4); Hemoglobin 11.4 g/dL (14.0-18.0); Immature Granulocyte Absolute 0.04 K/mm3 (0.00-0.031); Immature Granulocyte Percent A 0.5 % (0-0.5); Lymphocytes Absolute Auto 1.86 K/mm3 (0.9-3.2); Lymphocytes Percent Auto 23.9 % (18.3-44.2); Mean Corpuscular HGB Conc 31.7 g/dl (32-36); Mean Corpuscular Hemoglobin 30.5 pg (26-34); Mean Corpuscular Volume 96.3 fl (80-100); Monocytes Absolute Auto 0.7 K/mm3 (0.1-0.6); Monocytes Percent Auto 8.6 % (2.6-8.5); Neutrophils Percent Auto 64.7 % (45.5-73.1); Platelet Count Result 305 k/mm3 (150-375); Red Blood Count 3.74 M/mm3 (4.6-6.20); Red Cell Distribution Width 17.5 % (11.5-14.5); White Blood Count 7.8 K/mm3 (4.5-10.0)
[2025-04-17] MEDS: HYDROcodone/acetaminophen (*CRX) 5-325 MG TABLET 1 TAB PO ×2 (05:51→17:50)
[2025-04-17] MEDS: LEVOTHYROXINE SODIUM 50 MCG TABLET PO (05:52)
[2025-04-17 06:00] VITALS: BP 98/71; PULSE 103; RESP 18; TEMP 36.4; O2SAT 95
[2025-04-17 06:04] LABS: Alanine Aminotransferase 78 U/L (6-50); Albumin Level 4.3 g/dL (3.5-5.1); Alkaline Phosphatase 94 U/L (38-126); Anion Gap 11 mmol/L (4-12); Aspartate Amino Transferase 61 U/L (17-59); Bilirubin,Total 0.5 mg/dL (0.2-1.3); Blood Urea Nitrogen 19 mg/dL (9-20); Calcium 10.1 mg/dL (8.4-10.2); Carbon Dioxide 27 mmol/L (22-30); Chloride 99 mmol/L (98-107); Estimated CRCL calculation 101 ml/min; Estimated Glomerular Filt Rate > 60; Glucose 138 mg/dL (65-110); Magnesium 1.9 mg/dL (1.6-2.3); Potassium 3.8 mmol/L (3.4-5.0); Sodium 137 mmol/L (137-145); Total Protein 7.7 g/dL (6.3-8.2)
[2025-04-17] MEDS: THIAMINE HCL 100 MG TABLET 500 MG PO (09:22)
[2025-04-17] MEDS: PREGABALIN (*CRX) 75 MG CAPSULE 150 MG PO ×3 (09:22→17:46)
[2025-04-17] MEDS: lisinopriL 20 MG TABLET PO (09:22)
[2025-04-17] MEDS: CITALOPRAM HYDROBROMIDE 10 MG TABLET PO (09:22)
[2025-04-17] MEDS: PANTOPRAZOLE 40 MG TABLET PO (09:22)
[2025-04-17] MEDS: FOLIC ACID 1 MG TABLET PO (09:22)
[2025-04-17] MEDS: ENOXAPARIN 40 MG/0.4 ML SYRINGE SUB-Q (09:23)
[2025-04-17] MEDS: methocarbamoL 750 MG TABLET PO ×2 (09:26→21:58)
[2025-04-17 14:00] VITALS: BP 124/94; PULSE 94; RESP 16; TEMP 36.6; O2SAT 98
--- NOTE | 2025-04-17 14:56 | P.PNIM_ITS ---
Progress Note: A&P Assessment and Plan (1) Acute hypokalemia: Code(s): E87.6 - Hypokalemia Status: Acute (2) Acute hyponatremia: Code(s): E87.1 - Hypo-osmolality and hyponatremia Status: Acute (3) Hepatic steatosis: Code(s): K76.0 - Fatty (change of) liver, not elsewhere classified Status: Chronic (4) Generalized weakness: Code(s): R53.1 - Weakness Status: Acute (5) Heavy alcohol consumption: Code(s): F10.90 - Alcohol use, unspecified, uncomplicated Status: Chronic (6) Metabolic alkalosis with respiratory acidosis: Code(s): E87.4 - Mixed disorder of acid-base balance Status: Acute (7) Acute anemia: Code(s): D64.9 - Anemia, unspecified Status: Acute (8) Dysmetria: Code(s): R27.8 - Other lack of coordination Status: Acute (9) Abnormal lateral conjugate gaze: Code(s): H51.8 - Other specified disorders of binocular movement Status: Acute (10) Alcohol abuse: Code(s): F10.10 - Alcohol abuse, uncomplicated Status: Acute (11) Ataxia: Code(s): R27.0 - Ataxia, unspecified Status: Acute (12) Tobacco abuse: Code(s): Z72.0 - Tobacco use Status: Chronic Plan patient with long history of alcohol abuse, presented with twitching worsen over the past few months. 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 on 04/09 patient BUN and Scr were risen to 28/2.91 patient was started on IVF 125cc/hr his BUN and Scr trended down to resolution of renal failure.. Renal US is normal, PT OT evaluated. patient is not motivated to participate in PT, started antidepressant Celexa 10mg PO qd, Alcohol neuropathy, stroke, cord compression vs electrolyte imbalance vs Wernicke's Korsakoff syndrome B12/folate normal Patient is a heavy alcoholic, LAD was 3/7 MRI w/ow brain possible ischemic focus ECHO showed normal LV function , MRI total spine no acute findings CSF showed albuminocytologic dissociation, f/u cultures and PCRs Discussed with Dr Knowles, neurologist, noted he suspects Encephalitis in addition to alcohol withdrawal EEg no significant abnormalities PT/OT Neurology following RPR negative Hepatitis panel negative HIV negative HSV/West Nile/cryptococcus/Jj-Au negative Anemia Hb 9.8 Isat 77 monitor Hyponatremia, reoslved Na 133, Nephrology evaluated and noted that patient has chronci hyponatremia on currently within his baseline. monitor Alcohol abuse/withdrawal with hallucination CIWA, continue Thiamine and folate Prostatomegaly check PSA Hypogammaglobulinemia Evidence of bladder outlet obstruction now on Cortez catheter DVT prophylaxis on Sq lovenox Subjective Date/time seen: 04/17/25 14:56 Interval history: No overnight events. No new complaints. Cortez draining well. Continues to have generalized weakness and ataxia Review of Systems Review of Systems: All systems reviewed & are unremarkable except as noted in HPI and below Exam Narrative: Patient is comfortable, NAD HEENT: eyes are clear and none icteric LUNGS:CTA HEART: RR S1S2 ABD: BS+, Soft and nontender Lower extremities: no edema SKIN: nonjaundiced Neuro: grossly intact. twitching Objective Data Vital Signs Vital Signs: Vital Signs - 24 hr 04/16/25 20:20 04/16/25 21:09 04/17/25 06:00 Temperature 97.6 F 97.6 F Pulse Rate 111 H 103 H Respiratory Rate 18 18 Blood Pressure 106/68 98/71 L Pulse Oximetry 93 95 Oxygen Delivery Room Air 04/17/25 09:20 Temperature Pulse Rate Respiratory Rate Blood Pressure Pulse Oximetry Oxygen Delivery Room Air Intake/Output Intake/Output: Intake & Output 04/14/25 04/15/25 04/16/25 04/17/25 23:59 23:59 23:59 23:59 Intake Total 988 540 390 240 Output Total 1750 1600 875 Balance -006 -3040 -270 240 Meds/Results Medications: Active Medications Generic Name Dose Route Start Last Admin Trade Name Freq PRN Reason Stop Dose Admin Acetaminophen 650 mg 04/06/25 20:06 04/10/25 21:41 Acetaminophen 325 Mg Tablet PO 650 mg Q4H PRN Administration Mild Pain (1-3) or Fever Hydrocodone Bitart/Acetaminophen 1 tab 03/30/25 21:18 04/17/25 05:51 Hydrocodone/Acetaminophen (*Crx) 5-325 Mg Tablet PO 1 tab Q6H PRN Administration Pain Rated 7-10 Artificial Tears 1 drop 04/01/25 12:59 Artificial Tears Ophth Soln 15 Ml Bottle EACH EYE QID PRN Dry Eye(s) Bisacodyl 5 mg 04/04/25 09:00 04/17/25 09:00 Bisacodyl 5 Mg Tablet Ec PO Not Given QAM BRYON Chlordiazepoxide HCl 25 mg 04/08/25 12:35 04/11/25 10:10 Chlordiazepoxide (*Crx) 25 Mg Capsule PO 25 mg Q6H PRN Administration Withdrawal Citalopram Hydrobromide 10 mg 04/10/25 13:25 04/17/25 09:22 Citalopram Hydrobromide 10 Mg Tablet PO 10 mg QAM BRYON Administration Enoxaparin Sodium 40 mg 04/01/25 09:00 04/17/25 09:23 Enoxaparin 40 Mg/0.4 Ml Syringe SUB-Q 40 mg DAILY BRYON Administration Folic Acid 1 mg 03/31/25 09:00 04/17/25 09:22 Folic Acid 1 Mg Tablet PO 1 mg DAILY BRYON Administration Levothyroxine Sodium 50 mcg 03/31/25 06:30 04/17/25 05:52 Levothyroxine Sodium 50 Mcg Tablet PO 50 mcg DAILY@0630 BRYON Administration Lisinopril 20 mg 03/31/25 09:00 04/17/25 09:22 Lisinopril 20 Mg Tablet PO 20 mg DAILY BRYON Administration Loperamide HCl 2 mg 04/10/25 17:55 04/12/25 03:24 Loperamide Hcl 2 Mg Capsule PO 2 mg Q8HR PRN Administration Diarrhea Methocarbamol 750 mg 03/31/25 02:49 04/17/25 09:26 Methocarbamol 750 Mg Tablet PO 750 mg TID PRN Administration muscle spasm Miscellaneous Information 1 each 04/15/25 00:01 04/15/25 18:01 Please Renew _Pregabalin.. Per [employer] Procedure, It Will Discontinue If Not Renewed XX 05/15/25 00:00 Not Given CLARIFY BRYON Miscellaneous Information 1 each 04/17/25 00:01 Please Renew Chlordiazepoxide. Per [employer] Procedure, It Will Discontinue If Not Renewed. XX 05/17/25 00:00 CLARIFY BRYON Pantoprazole Sodium 40 mg 03/31/25 09:00 04/17/25 09:22 Pantoprazole 40 Mg Tablet PO 40 mg QAM BRYON Administration Polyethylene Glycol 17 gm 04/03/25 11:59 04/16/25 12:17 Polyethylene Glycol 3350 17 Gm Powd.Pack PO 17 gm DAILY PRN Administration Constipation Pregabalin 150 mg 04/06/25 17:00 04/17/25 12:38 Pregabalin (*Crx) 75 Mg Capsule PO 150 mg TID BRYON Administration Thiamine HCl 500 mg 04/06/25 13:00 04/17/25 09:22 Thiamine Hcl 100 Mg Tablet PO 500 mg QAM BRYON Administration Radiology Results: ITS Impressions Chest X-Ray 03/30/25 14:28 Impression: 1: Left basilar atelectasis. Head CT 03/30/25 14:51 IMPRESSION: 1. No acute intracranial process. Abdomen/Pelvis CT 03/30/25 16:42 IMPRESSION: 1. No acute intra-abdominal/pelvic process. 2. Mild diffuse bladder wall thickening and small posterior bladder diverticulum suggestive of sequela of chronic outlet obstruction Brain MRI 04/01/25 16:35 IMPRESSION: 1. Small focus in the right frontal lobe white matter most likely ischemic. 2. No evidence of acute intracranial process. 3. No abnormal enhancement. Lumbar Puncture Fluoroscopy 04/02/25 15:46 IMPRESSION: 1. Successful fluoro-guided lumbar puncture with elevated opening pressure of 29 cm water. Cervical Spine MRI 04/04/25 13:10 IMPRESSION: 1. Moderate to severely limited study due to motion artifact. 2. Mild to moderate cervical spondylosis with only minimal central canal stenosis. 3. No evident cord signal abnormalities or abnormally enhancing lesions identified. Thoracic Spine MRI 04/04/25 13:19 IMPRESSION: 1. Mild thoracic spondylosis. 2. No definitive cord signal abnormalities or abnormally enhancing lesions. Evaluation of cord signal is however moderately limited by motion artifact and relatively mild on the sagittal images but moderate severity on the axial imaging. Lumbar Spine MRI 04/04/25 13:27 IMPRESSION: 1. Mild lumbar spondylosis with instrumented L3-S1 anterior spinal fusion. Renal Ultrasound 04/09/25 19:00 IMPRESSION: Unremarkable renal sonogram findings. Labs Labs: Laboratory Results - last 24 hr 04/16/25 04/17/25 18:18 05:31 WBC 7.8 RBC 3.74 L Hgb 11.4 L Hct 36.0 L MCV 96.3 MCH 30.5 MCHC 31.7 L RDW 17.5 H Plt Count 305 MPV 11.0 H Immature Gran % (Auto) 0.5 Neut % (Auto) 64.7 Lymph % (Auto) 23.9 [place] % (Auto) 8.6 H Eos % (Auto) 1.3 Baso % (Auto) 1.0 Lymph # (Auto) 1.86 [place] # (Auto) 0.7 H Eos # (Auto) 0.1 Baso # (Auto) 0.1 Abs Immat Gran (auto) 0.04 H Absolute Neuts (auto) 5.0 Absolute Nucleated RBC 0.000 Nucleated RBC % 0.0 ESR 119 H Sodium 137 Potassium 3.8 Chloride 99 Carbon Dioxide 27 Anion Gap 11 BUN 19 Creatinine 0.77 Estim Creat Clear Calc 101 Estimated GFR > 60 Glucose 138 H Calcium 10.1 Magnesium 1.9 Total Bilirubin 0.5 AST 61 H ALT 78 H Alkaline Phosphatase 94 C-Reactive Protein 1.3 H Total Protein 7.7 Albumin 4.3 IgG 759 IgA 188 IgM 348 H Syphilis IgG/IgM Ab Non-reactive Hepatitis A IgM Ab Negative Hep Bs Antigen Negative Hep B Core IgM Ab Negative Hepatitis C Ab Screen Negative HIV 1&2 Ab/P24 Ag 4thGn Negative
[2025-04-17] MEDS: DULoxetine HCL 30 MG CAPSULE.DR PO (17:46)
[2025-04-17 20:14] VITALS: BP 122/81; PULSE 108; RESP 16; TEMP 36.9; O2SAT 95
[2025-04-18] VITALS (7 sets, daily range): BP systolic 96–122; BP diastolic 58–82; PULSE 82–103; RESP 16–18; TEMP 36.6–37.2; O2SAT 95–99
[2025-04-18] MEDS: HYDROcodone/acetaminophen (*CRX) 5-325 MG TABLET 1 TAB PO ×2 (02:28→18:44)
[2025-04-18] MEDS: LEVOTHYROXINE SODIUM 50 MCG TABLET PO (05:35)
[2025-04-18 05:38] LABS: Basophils Absolute Auto 0.1 K/mm3 (0.0-0.1); Basophils Percent Auto 0.6 % (0.2-1.2); Eosinophils Absolute Auto 0.1 K/mm3 (0-0.3); Eosinophils Percent Auto 0.7 % (0-4.4); Hematocrit 33.2 % (42.0-52.0); Hemoglobin 10.6 g/dL (14.0-18.0); Immature Granulocyte Absolute 0.04 K/mm3 (0.00-0.031); Immature Granulocyte Percent A 0.4 % (0-0.5); Lymphocytes Percent Auto 16.8 % (18.3-44.2); Mean Corpuscular HGB Conc 31.9 g/dl (32-36); Mean Corpuscular Hemoglobin 30.5 pg (26-34); Mean Corpuscular Volume 95.4 fl (80-100); Mean Platelet Volume 10.9 fl (7.4-10.4); Monocytes Percent Auto 10.2 % (2.6-8.5); Neutrophils Absolute Auto 6.8 K/mm3 (1.3-6.7); Neutrophils Percent Auto 71.3 % (45.5-73.1); Platelet Count Result 273 k/mm3 (150-375); Red Blood Count 3.48 M/mm3 (4.6-6.20); Red Cell Distribution Width 17.9 % (11.5-14.5); White Blood Count 9.6 K/mm3 (4.5-10.0)
[2025-04-18 05:55] LABS: Alanine Aminotransferase 72 U/L (6-50); Albumin Level 4.1 g/dL (3.5-5.1); Alkaline Phosphatase 92 U/L (38-126); Anion Gap 9 mmol/L (4-12); Aspartate Amino Transferase 56 U/L (17-59); Bilirubin,Total 0.6 mg/dL (0.2-1.3); Blood Urea Nitrogen 21 mg/dL (9-20); Calcium 9.9 mg/dL (8.4-10.2); Carbon Dioxide 29 mmol/L (22-30); Chloride 99 mmol/L (98-107); Estimated CRCL calculation 100 ml/min; Estimated Glomerular Filt Rate > 60; Glucose 113 mg/dL (65-110); Sodium 137 mmol/L (137-145); Total Protein 7.4 g/dL (6.3-8.2)
[2025-04-18] MEDS: THIAMINE HCL 100 MG TABLET 500 MG PO (09:07)
[2025-04-18] MEDS: BISACODYL 5 MG TABLET EC PO (09:08)
[2025-04-18] MEDS: PANTOPRAZOLE 40 MG TABLET PO (09:08)
[2025-04-18] MEDS: lisinopriL 20 MG TABLET PO (09:08)
[2025-04-18] MEDS: DULoxetine HCL 30 MG CAPSULE.DR PO ×2 (09:08→20:51)
[2025-04-18] MEDS: CITALOPRAM HYDROBROMIDE 10 MG TABLET PO (09:08)
[2025-04-18] MEDS: PREGABALIN (*CRX) 75 MG CAPSULE 150 MG PO ×3 (09:08→16:25)
[2025-04-18] MEDS: FOLIC ACID 1 MG TABLET PO (09:08)
[2025-04-18] MEDS: ENOXAPARIN 40 MG/0.4 ML SYRINGE SUB-Q (09:09)
[2025-04-18] MEDS: methocarbamoL 750 MG TABLET PO (11:55)
--- NOTE | 2025-04-18 13:38 | PM.IMPN ---
Progress Note: A&P Assessment and Plan (1) Acute hypokalemia: Code(s): E87.6 - Hypokalemia Status: Acute (2) Acute hyponatremia: Code(s): E87.1 - Hypo-osmolality and hyponatremia Status: Acute (3) Hepatic steatosis: Code(s): K76.0 - Fatty (change of) liver, not elsewhere classified Status: Chronic (4) Generalized weakness: Code(s): R53.1 - Weakness Status: Acute (5) Heavy alcohol consumption: Code(s): F10.90 - Alcohol use, unspecified, uncomplicated Status: Chronic (6) Metabolic alkalosis with respiratory acidosis: Code(s): E87.4 - Mixed disorder of acid-base balance Status: Acute (7) Acute anemia: Code(s): D64.9 - Anemia, unspecified Status: Acute (8) Dysmetria: Code(s): R27.8 - Other lack of coordination Status: Acute (9) Abnormal lateral conjugate gaze: Code(s): H51.8 - Other specified disorders of binocular movement Status: Acute (10) Alcohol abuse: Code(s): F10.10 - Alcohol abuse, uncomplicated Status: Acute (11) Ataxia: Code(s): R27.0 - Ataxia, unspecified Status: Acute (12) Tobacco abuse: Code(s): Z72.0 - Tobacco use Status: Chronic Plan patient with long history of alcohol abuse, presented with twitching worsen over the past few months. 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 on 04/09 patient BUN and Scr were risen to 28/2.91 patient was started on IVF 125cc/hr his BUN and Scr trended down to resolution of renal failure.. Renal US is normal, PT OT evaluated. patient is not motivated to participate in PT, started antidepressant Celexa 10mg PO qd, Alcohol neuropathy, stroke, cord compression vs electrolyte imbalance vs Wernicke's Korsakoff syndrome B12/folate normal Patient is a heavy alcoholic, LAD was 3/7 MRI w/ow brain possible ischemic focus ECHO showed normal LV function , MRI total spine no acute findings CSF showed albuminocytologic dissociation, f/u cultures and PCRs Discussed with Dr Knowles, neurologist, noted he suspects Encephalitis in addition to alcohol withdrawal EEg no significant abnormalities PT/OT Neurology following RPR negative Hepatitis panel negative HIV negative HSV/West Nile/cryptococcus/Jj-Au negative Added Cymbalta 04/17/2025 for peripheral neuropathy Anemia Hb 9.8 Isat 77 monitor Hyponatremia, reoslved Na 133, Nephrology evaluated and noted that patient has chronci hyponatremia on currently within his baseline. monitor Alcohol abuse/withdrawal with hallucination CIWA, continue Thiamine and folate Prostatomegaly check PSA Hypogammaglobulinemia Evidence of bladder outlet obstruction now on Cortez catheter void trial on 04/17/2025 and now removed. DVT prophylaxis on Sq lovenox Subjective Date/time seen: 04/18/25 13:38 Interval history: Cortez removed yesterday. Able to void since then. No other complaints. Review of Systems Review of Systems: All systems reviewed & are unremarkable except as noted in HPI and below Exam Narrative: Patient is comfortable, NAD HEENT: eyes are clear and none icteric LUNGS:CTA HEART: RR S1S2 ABD: BS+, Soft and nontender Lower extremities: no edema SKIN: nonjaundiced Neuro: grossly intact. twitching Objective Data Vital Signs Vital Signs: Vital Signs - 24 hr 04/17/25 14:00 04/17/25 20:00 04/17/25 20:14 Temperature 97.9 F 98.4 F Pulse Rate 94 108 H Respiratory Rate 16 16 Blood Pressure 124/94 H 122/81 Pulse Oximetry 98 95 Oxygen Delivery Room Air Fraction of Inspired Oxygen 04/18/25 05:10 04/18/25 08:54 04/18/25 09:08 Temperature 98.5 F 97.8 F Pulse Rate 103 H 82 82 Respiratory Rate 17 16 16 Blood Pressure 122/82 96/65 L Pulse Oximetry 97 95 95 Oxygen Delivery Room Air Fraction of Inspired Oxygen 04/18/25 11:48 Temperature Pulse Rate Respiratory Rate Blood Pressure 101/58 L Pulse Oximetry Oxygen Delivery Fraction of Inspired Oxygen Intake/Output Intake/Output: Intake & Output 04/15/25 04/16/25 04/17/25 04/18/25 23:59 23:59 23:59 23:59 Intake Total 540 390 480 640 Output Total 1600 875 150 200 Balance -1060 -485 330 440 Meds/Results Medications: Active Medications Generic Name Dose Route Start Last Admin Trade Name Freq PRN Reason Stop Dose Admin Acetaminophen 650 mg 04/06/25 20:06 04/10/25 21:41 Acetaminophen 325 Mg Tablet PO 650 mg Q4H PRN Administration Mild Pain (1-3) or Fever Hydrocodone Bitart/Acetaminophen 1 tab 03/30/25 21:18 04/18/25 02:28 Hydrocodone/Acetaminophen (*Crx) 5-325 Mg Tablet PO 1 tab Q6H PRN Administration Pain Rated 7-10 Artificial Tears 1 drop 04/01/25 12:59 Artificial Tears Ophth Soln 15 Ml Bottle EACH EYE QID PRN Dry Eye(s) Bisacodyl 5 mg 04/04/25 09:00 04/18/25 09:08 Bisacodyl 5 Mg Tablet Ec PO 5 mg QAM BRYON Administration Citalopram Hydrobromide 10 mg 04/10/25 13:25 04/18/25 09:08 Citalopram Hydrobromide 10 Mg Tablet PO 10 mg QAM BRYON Administration Duloxetine HCl 30 mg 04/17/25 17:00 04/18/25 09:08 Duloxetine Hcl 30 Mg Capsule.Dr PO 30 mg Q12HR BRYON Administration Enoxaparin Sodium 40 mg 04/01/25 09:00 04/18/25 09:09 Enoxaparin 40 Mg/0.4 Ml Syringe SUB-Q 40 mg DAILY BRYON Administration Folic Acid 1 mg 03/31/25 09:00 04/18/25 09:08 Folic Acid 1 Mg Tablet PO 1 mg DAILY BRYON Administration Levothyroxine Sodium 50 mcg 03/31/25 06:30 04/18/25 05:35 Levothyroxine Sodium 50 Mcg Tablet PO 50 mcg DAILY@0630 BRYON Administration Lisinopril 20 mg 03/31/25 09:00 04/18/25 09:08 Lisinopril 20 Mg Tablet PO 20 mg DAILY BRYON Administration Loperamide HCl 2 mg 04/10/25 17:55 04/12/25 03:24 Loperamide Hcl 2 Mg Capsule PO 2 mg Q8HR PRN Administration Diarrhea Methocarbamol 750 mg 03/31/25 02:49 04/18/25 11:55 Methocarbamol 750 Mg Tablet PO 750 mg TID PRN Administration muscle spasm Miscellaneous Information 1 each 04/18/25 00:01 Please Renew Hydrocodone/Acetam Per [employer] Procedure, It Will Discontinue If Not Renewed XX 05/18/25 00:00 CLARIFY BRYON Pantoprazole Sodium 40 mg 03/31/25 09:00 04/18/25 09:08 Pantoprazole 40 Mg Tablet PO 40 mg QAM BRYON Administration Polyethylene Glycol 17 gm 04/03/25 11:59 04/16/25 12:17 Polyethylene Glycol 3350 17 Gm Powd.Pack PO 17 gm DAILY PRN Administration Constipation Pregabalin 150 mg 04/06/25 17:00 04/18/25 12:00 Pregabalin (*Crx) 75 Mg Capsule PO 150 mg TID BRYON Administration Thiamine HCl 500 mg 04/06/25 13:00 04/18/25 09:07 Thiamine Hcl 100 Mg Tablet PO 500 mg QAM BRYON Administration Radiology Results: ITS Impressions Chest X-Ray 03/30/25 14:28 Impression: 1: Left basilar atelectasis. Head CT 03/30/25 14:51 IMPRESSION: 1. No acute intracranial process. Abdomen/Pelvis CT 03/30/25 16:42 IMPRESSION: 1. No acute intra-abdominal/pelvic process. 2. Mild diffuse bladder wall thickening and small posterior bladder diverticulum suggestive of sequela of chronic outlet obstruction Brain MRI 04/01/25 16:35 IMPRESSION: 1. Small focus in the right frontal lobe white matter most likely ischemic. 2. No evidence of acute intracranial process. 3. No abnormal enhancement. Lumbar Puncture Fluoroscopy 04/02/25 15:46 IMPRESSION: 1. Successful fluoro-guided lumbar puncture with elevated opening pressure of 29 cm water. Cervical Spine MRI 04/04/25 13:10 IMPRESSION: 1. Moderate to severely limited study due to motion artifact. 2. Mild to moderate cervical spondylosis with only minimal central canal stenosis. 3. No evident cord signal abnormalities or abnormally enhancing lesions identified. Thoracic Spine MRI 04/04/25 13:19 IMPRESSION: 1. Mild thoracic spondylosis. 2. No definitive cord signal abnormalities or abnormally enhancing lesions. Evaluation of cord signal is however moderately limited by motion artifact and relatively mild on the sagittal images but moderate severity on the axial imaging. Lumbar Spine MRI 04/04/25 13:27 IMPRESSION: 1. Mild lumbar spondylosis with instrumented L3-S1 anterior spinal fusion. Renal Ultrasound 04/09/25 19:00 IMPRESSION: Unremarkable renal sonogram findings. Labs Labs: Laboratory Results - last 24 hr 04/18/25 05:16 WBC 9.6 RBC 3.48 L Hgb 10.6 L Hct 33.2 L MCV 95.4 MCH 30.5 MCHC 31.9 L RDW 17.9 H Plt Count 273 MPV 10.9 H Immature Gran % (Auto) 0.4 Neut % (Auto) 71.3 Lymph % (Auto) 16.8 L [place] % (Auto) 10.2 H Eos % (Auto) 0.7 Baso % (Auto) 0.6 Lymph # (Auto) 1.60 [place] # (Auto) 1.0 H Eos # (Auto) 0.1 Baso # (Auto) 0.1 Abs Immat Gran (auto) 0.04 H Absolute Neuts (auto) 6.8 H Absolute Nucleated RBC 0.000 Nucleated RBC % 0.0 Sodium 137 Potassium 4.0 Chloride 99 Carbon Dioxide 29 Anion Gap 9 BUN 21 H Creatinine 0.78 Estim Creat Clear Calc 100 Estimated GFR > 60 Glucose 113 H Calcium 9.9 Magnesium 2.0 Total Bilirubin 0.6 AST 56 ALT 72 H Alkaline Phosphatase 92 Total Protein 7.4 Albumin 4.1
[2025-04-19] MEDS: methocarbamoL 750 MG TABLET PO ×3 (02:44→20:53)
[2025-04-19] MEDS: HYDROcodone/acetaminophen (*CRX) 5-325 MG TABLET 1 TAB PO ×2 (02:44→13:02)
[2025-04-19 04:04] VITALS: BP 117/78; PULSE 101; RESP 18; TEMP 36.5; O2SAT 97
[2025-04-19] MEDS: LEVOTHYROXINE SODIUM 50 MCG TABLET PO (07:29)
[2025-04-19 09:58] VITALS: BP 117/77; PULSE 94; RESP 16; TEMP 36.4; O2SAT 97
[2025-04-19 10:00] VITALS: PULSE 94; RESP 16; O2SAT 97
[2025-04-19] MEDS: DULoxetine HCL 30 MG CAPSULE.DR PO ×2 (10:00→20:48)
[2025-04-19] MEDS: THIAMINE HCL 100 MG TABLET 500 MG PO (10:00)
[2025-04-19] MEDS: CITALOPRAM HYDROBROMIDE 10 MG TABLET PO (10:00)
[2025-04-19] MEDS: FOLIC ACID 1 MG TABLET PO (10:00)
[2025-04-19] MEDS: PANTOPRAZOLE 40 MG TABLET PO (10:00)
[2025-04-19] MEDS: lisinopriL 20 MG TABLET PO (10:00)
[2025-04-19] MEDS: PREGABALIN (*CRX) 75 MG CAPSULE 150 MG PO ×3 (10:00→18:15)
[2025-04-19] MEDS: ENOXAPARIN 40 MG/0.4 ML SYRINGE SUB-Q (10:06)
--- NOTE | 2025-04-19 11:14 | PCNFU ---
Nutrition Follow-Up Complete: Inadequate oral intake related to loss of appetite as evidenced by intakes 0-10% PO intake as tolerated - [place] is being met. Intakes improved 25-100% Goal: Pt current nutrition is Heart healthy diet, Level 7 easy to chew. Ensure Enlive TID (350 kcal, 20 g protein). Nutrition recommendation: No new recommendations. Continue current nutrition care plan and orders. Agree with orders Last recorded weight is 81.8 kg. Bowel Motility: +2 BMs 04/18 Labs Reviewed: No labs today. 04/18: Hgb 10.6, Hct 33.2, BUN 21, Glu 113 Meds Noted: Folic acid, protonix, lovenox, synthroid, miralax Skin: No skin issues Additional Notes: Pt continues to improve intakes especially when family brings in food. Drinking Ensure Enlive with meals. Still awaiting placement. Continue with current orders Monitoring intakes, weights, labs, supplement tolerance, plan of care Follow up in 3 days
[2025-04-19 11:24] LABS: PSA, Free 0.3 ng/mL; Percent Free Prostate Spec Ag 15 % (calc) (>25)
--- NOTE | 2025-04-19 13:08 | PCOTNOTE ---
Attempted to see Patient for therapy services. Patient refused to participate in any activity, states he does not feel well, having increased spasms, pain and bowel movements when he moves. Patient's children are in the room with him. Patient states the only think he needs is sleep and rest to get better, not today, it's not happening. RN notified and aware, states he has no motivation.
[2025-04-19 14:00] VITALS: BP 120/72; PULSE 100; RESP 19; TEMP 36.6; O2SAT 97
--- NOTE | 2025-04-19 14:27 | PM.IMPN ---
Progress Note: A&P Assessment and Plan (1) Acute hypokalemia: Code(s): E87.6 - Hypokalemia Status: Acute (2) Acute hyponatremia: Code(s): E87.1 - Hypo-osmolality and hyponatremia Status: Acute (3) Hepatic steatosis: Code(s): K76.0 - Fatty (change of) liver, not elsewhere classified Status: Chronic (4) Generalized weakness: Code(s): R53.1 - Weakness Status: Acute (5) Heavy alcohol consumption: Code(s): F10.90 - Alcohol use, unspecified, uncomplicated Status: Chronic (6) Metabolic alkalosis with respiratory acidosis: Code(s): E87.4 - Mixed disorder of acid-base balance Status: Acute (7) Acute anemia: Code(s): D64.9 - Anemia, unspecified Status: Acute (8) Dysmetria: Code(s): R27.8 - Other lack of coordination Status: Acute (9) Abnormal lateral conjugate gaze: Code(s): H51.8 - Other specified disorders of binocular movement Status: Acute (10) Alcohol abuse: Code(s): F10.10 - Alcohol abuse, uncomplicated Status: Acute (11) Ataxia: Code(s): R27.0 - Ataxia, unspecified Status: Acute (12) Tobacco abuse: Code(s): Z72.0 - Tobacco use Status: Chronic Plan patient with long history of alcohol abuse, presented with twitching worsen over the past few months. 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 on 04/09 patient BUN and Scr were risen to 28/2.91 patient was started on IVF 125cc/hr his BUN and Scr trended down to resolution of renal failure.. Renal US is normal, PT OT evaluated. patient is not motivated to participate in PT, started antidepressant Celexa 10mg PO qd, Alcohol neuropathy, stroke, cord compression vs electrolyte imbalance vs Wernicke's Korsakoff syndrome B12/folate normal Patient is a heavy alcoholic, LAD was 3/7 MRI w/ow brain possible ischemic focus ECHO showed normal LV function , MRI total spine no acute findings CSF showed albuminocytologic dissociation, f/u cultures and PCRs Discussed with Dr Knowles, neurologist, noted he suspects Encephalitis in addition to alcohol withdrawal EEg no significant abnormalities PT/OT Neurology following RPR negative Hepatitis panel negative HIV negative HSV/West Nile/cryptococcus/Jj-Au negative Added Cymbalta 04/17/2025 for peripheral neuropathy Anemia Hb 9.8 Isat 77 monitor Hyponatremia, reoslved Na 133, Nephrology evaluated and noted that patient has chronci hyponatremia on currently within his baseline. monitor Alcohol abuse/withdrawal with hallucination CIWA, continue Thiamine and folate Prostatomegaly PSA negative Hypogammaglobulinemia Evidence of bladder outlet obstruction now on Cortez catheter void trial on 04/17/2025 and now removed. DVT prophylaxis on Sq lovenox Subjective Date/time seen: 04/19/25 14:27 Interval history: No overnight events. No new complaints. Able to urinate. Review of Systems Review of Systems: All systems reviewed & are unremarkable except as noted in HPI and below Exam Narrative: Patient is comfortable, NAD HEENT: eyes are clear and none icteric LUNGS:CTA HEART: RR S1S2 ABD: BS+, Soft and nontender Lower extremities: no edema SKIN: nonjaundiced Neuro: grossly intact. twitching Objective Data Vital Signs Vital Signs: Vital Signs - 24 hr 04/18/25 15:28 04/18/25 20:00 04/18/25 20:11 Temperature 99.0 F 98.3 F Pulse Rate 101 H 102 H 102 H Respiratory Rate 16 18 18 Blood Pressure 114/78 102/71 Pulse Oximetry 97 99 99 Oxygen Delivery Room Air Fraction of Inspired Oxygen 21 04/19/25 04:04 04/19/25 09:58 04/19/25 10:00 Temperature 97.7 F 97.5 F L Pulse Rate 101 H 94 94 Respiratory Rate 18 16 16 Blood Pressure 117/78 117/77 Pulse Oximetry 97 97 97 Oxygen Delivery Room Air Fraction of Inspired Oxygen 21 Intake/Output Intake/Output: Intake & Output 04/16/25 04/17/25 04/18/25 04/19/25 23:59 23:59 23:59 23:59 Intake Total 047 447 5013 770 Output Total 875 150 700 300 Balance -485 330 900 470 Meds/Results Medications: Active Medications Generic Name Dose Route Start Last Admin Trade Name Freq PRN Reason Stop Dose Admin Acetaminophen 650 mg 04/06/25 20:06 04/10/25 21:41 Acetaminophen 325 Mg Tablet PO 650 mg Q4H PRN Administration Mild Pain (1-3) or Fever Hydrocodone Bitart/Acetaminophen 1 tab 04/19/25 11:59 04/19/25 13:02 Hydrocodone/Acetaminophen (*Crx) 5-325 Mg Tablet PO 1 tab Q6H PRN Administration Pain Rated 7-10 Artificial Tears 1 drop 04/01/25 12:59 Artificial Tears Ophth Soln 15 Ml Bottle EACH EYE QID PRN Dry Eye(s) Bisacodyl 5 mg 04/04/25 09:00 04/19/25 10:06 Bisacodyl 5 Mg Tablet Ec PO Not Given QAM BRYON Citalopram Hydrobromide 10 mg 04/10/25 13:25 04/19/25 10:00 Citalopram Hydrobromide 10 Mg Tablet PO 10 mg QAM BRYON Administration Duloxetine HCl 30 mg 04/17/25 17:00 04/19/25 10:00 Duloxetine Hcl 30 Mg Capsule.Dr PO 30 mg Q12HR BRYON Administration Enoxaparin Sodium 40 mg 04/01/25 09:00 04/19/25 10:06 Enoxaparin 40 Mg/0.4 Ml Syringe SUB-Q 40 mg DAILY BRYON Administration Folic Acid 1 mg 03/31/25 09:00 04/19/25 10:00 Folic Acid 1 Mg Tablet PO 1 mg DAILY BRYON Administration Levothyroxine Sodium 50 mcg 03/31/25 06:30 04/19/25 07:29 Levothyroxine Sodium 50 Mcg Tablet PO 50 mcg DAILY@0630 BRYON Administration Lisinopril 20 mg 03/31/25 09:00 04/19/25 10:00 Lisinopril 20 Mg Tablet PO 20 mg DAILY BRYON Administration Loperamide HCl 2 mg 04/10/25 17:55 04/12/25 03:24 Loperamide Hcl 2 Mg Capsule PO 2 mg Q8HR PRN Administration Diarrhea Methocarbamol 750 mg 03/31/25 02:49 04/19/25 11:21 Methocarbamol 750 Mg Tablet PO 750 mg TID PRN Administration muscle spasm Pantoprazole Sodium 40 mg 03/31/25 09:00 04/19/25 10:00 Pantoprazole 40 Mg Tablet PO 40 mg QAM BRYON Administration Polyethylene Glycol 17 gm 04/03/25 11:59 04/16/25 12:17 Polyethylene Glycol 3350 17 Gm Powd.Pack PO 17 gm DAILY PRN Administration Constipation Pregabalin 150 mg 04/06/25 17:00 04/19/25 13:02 Pregabalin (*Crx) 75 Mg Capsule PO 150 mg TID BRYON Administration Thiamine HCl 500 mg 04/06/25 13:00 04/19/25 10:00 Thiamine Hcl 100 Mg Tablet PO 500 mg QAM BRYON Administration Radiology Results: ITS Impressions Chest X-Ray 03/30/25 14:28 Impression: 1: Left basilar atelectasis. Head CT 03/30/25 14:51 IMPRESSION: 1. No acute intracranial process. Abdomen/Pelvis CT 03/30/25 16:42 IMPRESSION: 1. No acute intra-abdominal/pelvic process. 2. Mild diffuse bladder wall thickening and small posterior bladder diverticulum suggestive of sequela of chronic outlet obstruction Brain MRI 04/01/25 16:35 IMPRESSION: 1. Small focus in the right frontal lobe white matter most likely ischemic. 2. No evidence of acute intracranial process. 3. No abnormal enhancement. Lumbar Puncture Fluoroscopy 04/02/25 15:46 IMPRESSION: 1. Successful fluoro-guided lumbar puncture with elevated opening pressure of 29 cm water. Cervical Spine MRI 04/04/25 13:10 IMPRESSION: 1. Moderate to severely limited study due to motion artifact. 2. Mild to moderate cervical spondylosis with only minimal central canal stenosis. 3. No evident cord signal abnormalities or abnormally enhancing lesions identified. Thoracic Spine MRI 04/04/25 13:19 IMPRESSION: 1. Mild thoracic spondylosis. 2. No definitive cord signal abnormalities or abnormally enhancing lesions. Evaluation of cord signal is however moderately limited by motion artifact and relatively mild on the sagittal images but moderate severity on the axial imaging. Lumbar Spine MRI 04/04/25 13:27 IMPRESSION: 1. Mild lumbar spondylosis with instrumented L3-S1 anterior spinal fusion. Renal Ultrasound 04/09/25 19:00 IMPRESSION: Unremarkable renal sonogram findings. Labs Labs: Laboratory Results - last 24 hr 04/16/25 18:18 Free PSA 0.3 % Free PSA 15 L Total PSA 2.0
--- NOTE | 2025-04-19 15:45 | PCPTNOTE ---
Patient refused treatment this session stating he is not feeling well today. Patient requests PT return tomorrow.
[2025-04-19 20:00] VITALS: PULSE 100; RESP 19; O2SAT 97
[2025-04-19 20:59] VITALS: BP 98/66; PULSE 99; RESP 20; TEMP 36.7; O2SAT 96
[2025-04-20 04:33] VITALS: BP 114/78; PULSE 94; RESP 12; TEMP 36.3; O2SAT 97
[2025-04-20] MEDS: HYDROcodone/acetaminophen (*CRX) 5-325 MG TABLET 1 TAB PO ×2 (04:48→15:39)
[2025-04-20] MEDS: LEVOTHYROXINE SODIUM 50 MCG TABLET PO (04:48)
[2025-04-20] MEDS: CITALOPRAM HYDROBROMIDE 10 MG TABLET PO (09:54)
[2025-04-20] MEDS: THIAMINE HCL 100 MG TABLET 500 MG PO (09:54)
[2025-04-20] MEDS: FOLIC ACID 1 MG TABLET PO (09:54)
[2025-04-20] MEDS: PREGABALIN (*CRX) 75 MG CAPSULE 150 MG PO ×3 (09:54→17:42)
[2025-04-20 09:55] VITALS: PULSE 94; RESP 12; O2SAT 97
[2025-04-20] MEDS: lisinopriL 20 MG TABLET PO (09:55)
[2025-04-20] MEDS: ENOXAPARIN 40 MG/0.4 ML SYRINGE SUB-Q (09:55)
[2025-04-20] MEDS: DULoxetine HCL 30 MG CAPSULE.DR PO ×2 (09:55→20:11)
[2025-04-20] MEDS: PANTOPRAZOLE 40 MG TABLET PO (09:55)
[2025-04-20] MEDS: methocarbamoL 750 MG TABLET PO ×2 (10:02→17:49)
--- NOTE | 2025-04-20 13:41 | PM.IMPN ---
Progress Note: A&P Assessment and Plan (1) Acute hypokalemia: Code(s): E87.6 - Hypokalemia Status: Acute (2) Acute hyponatremia: Code(s): E87.1 - Hypo-osmolality and hyponatremia Status: Acute (3) Hepatic steatosis: Code(s): K76.0 - Fatty (change of) liver, not elsewhere classified Status: Chronic (4) Generalized weakness: Code(s): R53.1 - Weakness Status: Acute (5) Heavy alcohol consumption: Code(s): F10.90 - Alcohol use, unspecified, uncomplicated Status: Chronic (6) Metabolic alkalosis with respiratory acidosis: Code(s): E87.4 - Mixed disorder of acid-base balance Status: Acute (7) Acute anemia: Code(s): D64.9 - Anemia, unspecified Status: Acute (8) Dysmetria: Code(s): R27.8 - Other lack of coordination Status: Acute (9) Abnormal lateral conjugate gaze: Code(s): H51.8 - Other specified disorders of binocular movement Status: Acute (10) Alcohol abuse: Code(s): F10.10 - Alcohol abuse, uncomplicated Status: Acute (11) Ataxia: Code(s): R27.0 - Ataxia, unspecified Status: Acute (12) Tobacco abuse: Code(s): Z72.0 - Tobacco use Status: Chronic Plan patient with long history of alcohol abuse, presented with twitching worsen over the past few months. 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 on 04/09 patient BUN and Scr were risen to 28/2.91 patient was started on IVF 125cc/hr his BUN and Scr trended down to resolution of renal failure.. Renal US is normal, PT OT evaluated. patient is not motivated to participate in PT, started antidepressant Celexa 10mg PO qd, Alcohol neuropathy, stroke, cord compression vs electrolyte imbalance vs Wernicke's Korsakoff syndrome B12/folate normal Patient is a heavy alcoholic, LAD was 3/7 MRI w/ow brain possible ischemic focus ECHO showed normal LV function , MRI total spine no acute findings CSF showed albuminocytologic dissociation, f/u cultures and PCRs Discussed with Dr Knowles, neurologist, noted he suspects Encephalitis in addition to alcohol withdrawal EEg no significant abnormalities PT/OT Neurology following RPR negative Hepatitis panel negative HIV negative HSV/West Nile/cryptococcus/Jj-Au negative Added Cymbalta 04/17/2025 for peripheral neuropathy Anemia Hb 9.8 Isat 77 monitor Hyponatremia, reoslved Na 133, Nephrology evaluated and noted that patient has chronci hyponatremia on currently within his baseline. monitor Alcohol abuse/withdrawal with hallucination CIWA, continue Thiamine and folate Prostatomegaly PSA negative Hypogammaglobulinemia Evidence of bladder outlet obstruction now on Cortez catheter void trial on 04/17/2025 and now removed. DVT prophylaxis on Sq lovenox Disposition: He is awaiting placement Subjective Date/time seen: 04/20/25 13:41 Interval history: No overnight events. No new complaints. Weakness persist. Tingling and numbness persist. Review of Systems Review of Systems: All systems reviewed & are unremarkable except as noted in HPI and below Exam Narrative: Patient is comfortable, NAD HEENT: eyes are clear and none icteric LUNGS:CTA HEART: RR S1S2 ABD: BS+, Soft and nontender Lower extremities: no edema SKIN: nonjaundiced Neuro: grossly intact. twitching Objective Data Vital Signs Vital Signs: Vital Signs - 24 hr 04/19/25 14:00 04/19/25 20:00 04/19/25 20:59 Temperature 97.8 F 98.1 F Pulse Rate 100 100 99 Respiratory Rate 19 19 20 Blood Pressure 120/72 98/66 L Pulse Oximetry 97 97 96 Oxygen Delivery Room Air Fraction of Inspired Oxygen 21 04/20/25 04:33 04/20/25 09:55 Temperature 97.3 F L Pulse Rate 94 94 Respiratory Rate 12 12 Blood Pressure 114/78 Pulse Oximetry 97 97 Oxygen Delivery Room Air Fraction of Inspired Oxygen 21 Intake/Output Intake/Output: Intake & Output 04/17/25 04/18/25 04/19/2504/20/25 23:59 23:59 23:59 23:59 Intake Total 480 1600 1250 120 Output Total 000 910 8865 300 Balance 330 900 150 -180 Meds/Results Medications: Active Medications Generic Name Dose Route Start Last Admin Trade Name Freq PRN Reason Stop Dose Admin Acetaminophen 650 mg 04/06/25 20:06 04/10/25 21:41 Acetaminophen 325 Mg Tablet PO 650 mg Q4H PRN Administration Mild Pain (1-3) or Fever Hydrocodone Bitart/Acetaminophen 1 tab 04/19/25 11:59 04/20/25 04:48 Hydrocodone/Acetaminophen (*Crx) 5-325 Mg Tablet PO 1 tab Q6H PRN Administration Pain Rated 7-10 Artificial Tears 1 drop 04/01/25 12:59 Artificial Tears Ophth Soln 15 Ml Bottle EACH EYE QID PRN Dry Eye(s) Bisacodyl 5 mg 04/04/25 09:00 04/20/25 09:53 Bisacodyl 5 Mg Tablet Ec PO Not Given QAM BRYON Citalopram Hydrobromide 10 mg 04/10/25 13:25 04/20/25 09:54 Citalopram Hydrobromide 10 Mg Tablet PO 10 mg QAM BRYON Administration Duloxetine HCl 30 mg 04/17/25 17:00 04/20/25 09:55 Duloxetine Hcl 30 Mg Capsule.Dr PO 30 mg Q12HR BRYON Administration Enoxaparin Sodium 40 mg 04/01/25 09:00 04/20/25 09:55 Enoxaparin 40 Mg/0.4 Ml Syringe SUB-Q 40 mg DAILY BRYON Administration Folic Acid 1 mg 03/31/25 09:00 04/20/25 09:54 Folic Acid 1 Mg Tablet PO 1 mg DAILY BRYON Administration Levothyroxine Sodium 50 mcg 03/31/25 06:30 04/20/25 04:48 Levothyroxine Sodium 50 Mcg Tablet PO 50 mcg DAILY@0630 BRYON Administration Lisinopril 20 mg 03/31/25 09:00 04/20/25 09:55 Lisinopril 20 Mg Tablet PO 20 mg DAILY BRYON Administration Loperamide HCl 2 mg 04/10/25 17:55 04/12/25 03:24 Loperamide Hcl 2 Mg Capsule PO 2 mg Q8HR PRN Administration Diarrhea Methocarbamol 750 mg 03/31/25 02:49 04/20/25 10:02 Methocarbamol 750 Mg Tablet PO 750 mg TID PRN Administration muscle spasm Pantoprazole Sodium 40 mg 03/31/25 09:00 04/20/25 09:55 Pantoprazole 40 Mg Tablet PO 40 mg QAM BRYON Administration Polyethylene Glycol 17 gm 04/03/25 11:59 04/16/25 12:17 Polyethylene Glycol 3350 17 Gm Powd.Pack PO 17 gm DAILY PRN Administration Constipation Pregabalin 150 mg 04/06/25 17:00 04/20/25 12:44 Pregabalin (*Crx) 75 Mg Capsule PO 150 mg TID BRYON Administration Thiamine HCl 500 mg 04/06/25 13:00 04/20/25 09:54 Thiamine Hcl 100 Mg Tablet PO 500 mg QAM BRYON Administration Radiology Results: ITS Impressions Chest X-Ray 03/30/25 14:28 Impression: 1: Left basilar atelectasis. Head CT 03/30/25 14:51 IMPRESSION: 1. No acute intracranial process. Abdomen/Pelvis CT 03/30/25 16:42 IMPRESSION: 1. No acute intra-abdominal/pelvic process. 2. Mild diffuse bladder wall thickening and small posterior bladder diverticulum suggestive of sequela of chronic outlet obstruction Brain MRI 04/01/25 16:35 IMPRESSION: 1. Small focus in the right frontal lobe white matter most likely ischemic. 2. No evidence of acute intracranial process. 3. No abnormal enhancement. Lumbar Puncture Fluoroscopy 04/02/25 15:46 IMPRESSION: 1. Successful fluoro-guided lumbar puncture with elevated opening pressure of 29 cm water. Cervical Spine MRI 04/04/25 13:10 IMPRESSION: 1. Moderate to severely limited study due to motion artifact. 2. Mild to moderate cervical spondylosis with only minimal central canal stenosis. 3. No evident cord signal abnormalities or abnormally enhancing lesions identified. Thoracic Spine MRI 04/04/25 13:19 IMPRESSION: 1. Mild thoracic spondylosis. 2. No definitive cord signal abnormalities or abnormally enhancing lesions. Evaluation of cord signal is however moderately limited by motion artifact and relatively mild on the sagittal images but moderate severity on the axial imaging. Lumbar Spine MRI 04/04/25 13:27 IMPRESSION: 1. Mild lumbar spondylosis with instrumented L3-S1 anterior spinal fusion. Renal Ultrasound 04/09/25 19:00 IMPRESSION: Unremarkable renal sonogram findings.
[2025-04-20 14:00] VITALS: BP 116/72; PULSE 72; RESP 16; TEMP 37.2; O2SAT 96
[2025-04-20 20:00] VITALS: PULSE 116; RESP 18; O2SAT 99
[2025-04-20 20:09] VITALS: BP 96/76; PULSE 116; RESP 18; TEMP 36.6; O2SAT 99
[2025-04-20 21:32] VITALS: O2SAT 99
[2025-04-21 04:32] VITALS: BP 104/80; PULSE 99; RESP 18; TEMP 36.8; O2SAT 96
[2025-04-21] MEDS: HYDROcodone/acetaminophen (*CRX) 5-325 MG TABLET 1 TAB PO ×2 (04:50→16:18)
[2025-04-21] MEDS: LEVOTHYROXINE SODIUM 50 MCG TABLET PO (04:51)
[2025-04-21] MEDS: CITALOPRAM HYDROBROMIDE 10 MG TABLET PO (09:11)
[2025-04-21] MEDS: lisinopriL 20 MG TABLET PO (09:11)
[2025-04-21] MEDS: FOLIC ACID 1 MG TABLET PO (09:12)
[2025-04-21] MEDS: DULoxetine HCL 30 MG CAPSULE.DR PO (09:12)
[2025-04-21] MEDS: PREGABALIN (*CRX) 75 MG CAPSULE 150 MG PO ×3 (09:12→16:25)
[2025-04-21] MEDS: ENOXAPARIN 40 MG/0.4 ML SYRINGE SUB-Q (09:12)
[2025-04-21] MEDS: PANTOPRAZOLE 40 MG TABLET PO (09:12)
[2025-04-21] MEDS: THIAMINE HCL 100 MG TABLET 500 MG PO (09:12)
[2025-04-21] MEDS: methocarbamoL 750 MG TABLET PO (09:16)
[2025-04-21 14:00] VITALS: BP 108/74; PULSE 97; RESP 18; TEMP 36.6; O2SAT 96
--- NOTE | 2025-04-21 14:22 | PCPTNOTE ---
Patient declined PT stating he has been up afew times today with nursing and is waiting to see the to discuss his discharge. Patient states he is anxious about discharging.
--- NOTE | 2025-04-21 15:06 | P.DS_ITS ---
DS: Admitting Diagnosis Discharge Date 04/21/2025 Admitting Diagnosis Unable to walk DS: Discharge Diagnosis Discharge Diagnosis (1) Heavy alcohol consumption: Code(s): F10.90 - Alcohol use, unspecified, uncomplicated Status: Chronic (2) Alcohol withdrawal syndrome: Code(s): F10.939 - Alcohol use, unspecified with withdrawal, unspecified Status: Acute (3) Hyponatremia: Code(s): E87.1 - Hypo-osmolality and hyponatremia Status: Acute (4) Acute hyponatremia: Code(s): E87.1 - Hypo-osmolality and hyponatremia Status: Acute DS: Summary Hospital Course Hospital Course: 49-year-old male with a past medical history of alcohol abuse/heavy alcohol use, essential hypertension, GERD, hepatic steatosis, asthma and tobacco use who presented to the ER due to not being able to walk. The majority of the history comes from the patient who is not the best historian. I requested permission to call his significant other to get more history and he did not want me to call due to the lateness of the hour. Several months of a combination of symptoms. He reports he has been having 3-5 loose watery stools a day they are brown in color with some cramping abdominal pain just prior to onset of diarrhea. His stools are usually preceded immediately by some lower abdominal discomfort and cramping. He reports that he was also having pain with sitting and some urinary frequency. He went to an ER it looks like in July according to his external medication records and was diagnosed with the UTI and given Augmentin for 7 days. He was also at some point started having some nausea and dry heaves. He would occasionally have some vomiting. He went back to ER in September and was given a script for Keflex for what sounds like maybe prostatitis. He reports after the 2nd course of antibiotics with Keflex for 7 days. He reports have the 2nd course of antibiotics his symptoms did improve as far as urinary symptoms unfortunately, he still continued to have issues with stools. He denies having any fevers or chills. He does have a history of IBS with what is usually diarrhea alternating with constipation but he has not had constipation in a long time. He reports that throughout this time he has had about a 10 lb weight loss. He reports that his got to the point that his mouth is so dry that he is having trouble eating things in swallowing because of the dryness of his mouth. Approximately 2 months ago he began having peripheral neuropathy with numbness and tingling in his hands and the symptoms have progressively worsened. He went to his primary provider who ordered gabapentin January 30 that seemed to help for a couple of days before symptoms again worsened. He was subsequently switched to February 11 Lyrica which is been titrated upward to where he is now on 100 mg t.i.d.. He states that despite the Lyrica his symptoms have gotten worse. He is having jerking movements of his muscles. He states that he cannot control his muscles and for at least last week he is not really been able to get out of bed at all. He can no longer walk independently or sit up unassisted within the last week. He also reports that he has been having increasing difficulty urinating. He feels like he is not emptying his bladder. At the time of my evaluation he stated that he felt like he needed to urinate. He was unable to do so in a bladder scan was performed which demonstrated greater than 700 mL of urine. He was scheduled to have a nerve conduction test tomorrow at [facility] but he was in such bad shape that he could not wait and came into our ER for evaluation. He has been evaluated multiple ERs including hours. At once the GRE was started on levothyroxine but he was unsure as to why. His TSH at our ER today was normal. He reports that he has having some difficulty with memory and recall of series of events. He reports that he lost his job in September due to his onset of symptoms and inability to work. The patient used to be a heavy drinker in used to drink a 5th of vodka every other day. He drink this heavy for about 3 years. He cut back to only drinking 2-3 beers a day during the weekday in 10 beers each day on the weekends. It would be nice to clarify when he last drink with his significant other. Patient had a prolonged hospital stay, managed for alcohol abuse and withdrawal, patient was successfully weaned off of Benzodiazepine. Also managed for alcohol neuropathy, he initially underwent MRI brain showed possibel ischemic focus, ECHO showed normal LV function, MRI total spine no acute changes. CSF was tapped and showed albuminocytologic dissociate, Viral PCRs and CSF cultures negative. HIV negative, neurology was involved and patient was initially onhigh dose thiamine, also started broad spectrum antibiotics and Acyclovir which was discontinued after negative workup. Neurology later started on Citalopram, and Duloxetine and increased pregabaline to 150mg. Neurology does not deem the MRI brain findings significant Patient however continued to make slow butu steady improvement. Anemia, hb was stable at 9.8, and isat was 77, Hyponatremia resolved nephrology was consutled. Patient now discharged to Rehab to continue rehab. F/u with PCP in 3-5 days, Neurology, nephrology as instrcuted Time Spent with Patient Time attestation: Total time spent providing and/or coordinating discharge services: DS: Data Data Completed and Pending Completed studies during hospitalization: Pending at discharge 04/02/25 15:31 Cytology [PTH] Routine Labs on day of discharge: Labs from last 24 hours 04/16/25 18:18 ENZO Screen Negative Preliminary micro results at discharge 04/02/25 15:29 Fungal Culture and Stain - Preliminary Cerebral Spinal Fluid Discharge Plan Discharge Attending physician on discharge: Tammy Longoria Consulting providers: Jonathan Leyva; Lashawn Dennis Discharging Clinician: Tammy Longoria Anticipated Discharge Date/Time: 04/21/25 14:58 Patient Disposition: Inpatient Rehab Facility Activity: as tolerated Diet: as tolerated and regular Patient Language: Citizen Of [place] Stand Alone Forms: General Discharge Information Follow-up/Referrals: Fareed Nuñez [Other] (F/u with PCP in 3-5 days ) Lashawn Dennis MD [Physician] - (F/u with Nephrology as instructed ) Jonathan Leyva MD [Physician] - (F/u with neurology as instructed ) Discharge Medications: New pregabalin [Lyrica] 75 mg Capsule 150 mg PO TID 30 Days Qty: 180 1RF Artificial Tears([id number]) 1-0.2-0.2 % Drops 1 drp EACH EYE QID PRN (Reason: Dry Eye(S)) 30 Days Qty: 15 0RF thiamine HCl (vitamin B1) [Vitamin B-1] 100 mg Tablet 100 mg PO QAM 30 Days Qty: 30 1RF citalopram [Celexa] 20 mg Tablet 10 mg PO QAM 30 Days Qty: 15 1RF duloxetine [Cymbalta] 30 mg Capsule,Delayed Release(Dr/Ec) 30 mg PO Q12HR 30 Days Qty: 60 1RF multivitamin Tablet 1 tablet PO DAILY Qty: 30 1RF bisacodyl [Laxative (bisacodyl)] 5 mg Tablet,Delayed Release (Dr/Ec) 5 mg PO QAM 30 Days Qty: 30 0RF Continued lisinopril 20 mg tablet 20 mg PO DAILY Patient Comments: Patient reports he has not been taking it as he should albuterol 90 mcg/actuation Aerosol 90 mcg INHALATION TID PRN (Reason: Shortness Of Breath) omeprazole 20 mg tablet,delayed release (DR/EC) 20 mg PO DAILY Qty: 60 0RF folic acid 1 mg tablet 1 mg PO DAILY levothyroxine 50 mcg tablet 50 mcg PO DAILY methocarbamol 750 mg tablet 750 mg PO TID PRN (Reason: muscle spasm) Qty: 14 0RF hydrocodone-acetaminophen 5-325 mg tablet 1 tablet PO Q8H PRN (Reason: pain) Qty: 7 0RF Discontinued alprazolam 0.5 mg Tablet 0.5 mg PO TID PRN (Reason: Anxiety) hydrochlorothiazide 25 mg tablet 25 mg PO DAILY pregabalin 100 mg capsule 100 mg PO TID Date of admission: 03/31/25 10:14 Primary Care Provider: Fareed Nuñez Admitting Provider: Tammy Longoria Attending physician on admission: Tammy Longoria Condition: Stable
[2025-04-21 17:03] LABS: SARS-CoV-2 RNA PCR Negative (Negative)
== END 2025-04-21 18:25 | DRG 426 ==
LOC: ANHED 17:27 → ANHIMU 20:40 → ANH2MED 04-08 07:24
PROVIDERS: Family Medicine; Internal Medicine; Internal Medicine Nephrology; Physician Assistant; Psychiatry & Neurology Neurology; Student in an Organized Health Care Education/Training Program; Admitting Provider Internal Medicine; Emergency Provider Emergency Medicine; Visit Provider Internal Medicine
DX: E87.1 Hypo-osmolality and hyponatremia (principal); E87.6 Hypokalemia; I10 Essential (primary) hypertension; J45.909 Unspecified asthma, uncomplicated; K76.0 Fatty (change of) liver, not elsewhere classified; F41.9 Anxiety disorder, unspecified; G31.2 Degeneration of nervous system due to alcohol; K21.9 Gastro-esophageal reflux disease without esophagitis; F10.239 Alcohol dependence with withdrawal, unspecified; G25.2 Other specified forms of tremor; R44.2 Other hallucinations; K58.9 Irritable bowel syndrome, unspecified; R27.0 Ataxia, unspecified; G62.9 Polyneuropathy, unspecified; G62.1 Alcoholic polyneuropathy; E86.0 Dehydration; D61.818 Other pancytopenia; E03.9 Hypothyroidism, unspecified; E87.4 Mixed disorder of acid-base balance; F17.210 Nicotine dependence, cigarettes, uncomplicated; Z98.1 Arthrodesis status
CPT/HCPCS: 36415; 36600; 62328; 70450; 70553; 71045; 72156; 72157; 72158; 74177; 76775; 80048; 80053; 80074; 80076; 80307; 81001; 82040; 82042; 82077; 82140; 82274; 82436; 82533; 82550; 82570; 82607; 82728; 82746; 82784; 82805; 82945; 82948; 83010; 83540; 83550; 83605; 83615; 83735; 83873; 83883; 83916; 83935; 84100; 84133; 84153; 84154; 84155; 84157; 84165; 84300; 84425; 84443; 84484; 85018; 85025; 85027; 85055; 85610; 85652; 85730; 86038; 86039; 86140; 86403; 86593; 86617; 86703; 86788; 87070; 87102; 87206; 87493; 87529; 87635; 87798; 88108; 89051; 92610; 93005; 93306; 95816; 96365; 96366; 96372; 96374; 96375; 97110; 97140; 97163; 97164; 97167; 97530; 97535; 99285; A9270; A9577; G0378; G0379; G0432; J0133; J1650; J2060; J3360; J3411; J3475; J3480; J7030; J7040; J7060; J7070; Q9967

== ENCOUNTER 2025-04-25 05:05 | Inpatient (IN) | payer SELFPAY ==
[2025-04-25] VITALS (27 sets, daily range): BP systolic 92–129; BP diastolic 60–101; PULSE 97–111; RESP 10–20; TEMP 36.5–37.1; O2SAT 95–100; BMI 25.0
--- NOTE | ~2025-04-25 | CT_ITS ---
CT of the Abdomen and Pelvis: Indication: GI bleed Technique: 2.5 mm axial scans were obtained through the abdomen and pelvis following intravenous adm inistration of 100 cc of Omnipaque 350. Dose reduction technique was used on this scan by utilizing a utomated exposure control and iterative reconstruction technique. The dose-length product (DLP) was 4 21.68 mGy-cm. COMPARISON: 03/30/2025 Findings: Scans through the lung bases are unremarkable. The liver, spleen, pancreas, gallbladder, adrenals and kidneys are within normal limits. No evidence of aortic aneurysm. No lymphadenopathy. No bowel obstruction or bowel wall thickening. There is no evidence to suggest acute appendicitis. Images through the pelvis were performed. Urinary bladder unremarkable. No pelvic mass seen. No ascit es. Impression: No significant abnormalities seen. Reviewed, dictated and finalized at [facility]. Impression: No significant abnormalities seen.
[2025-04-25 05:23] LABS: Hematocrit 37.7 % (42.0-52.0); Hemoglobin 12.4 g/dL (14.0-18.0); Immature Granulocyte Percent A 0.5 % (0-0.5); Lymphocytes Absolute Auto 2.64 K/mm3 (0.9-3.2); Mean Corpuscular HGB Conc 32.9 g/dl (32-36); Mean Corpuscular Hemoglobin 30.2 pg (26-34); Mean Corpuscular Volume 92.0 fl (80-100); Nucleated Red Blood Cells Absolute Auto 0.000 K/mm3 (0.0-0.012); Nucleated Red Blood Cells Perc 0.0 % (0.0-0.2); Platelet Count Result 310 k/mm3 (150-375); Red Blood Count 4.10 M/mm3 (4.6-6.20); White Blood Count 8.0 K/mm3 (4.5-10.0)
[2025-04-25 05:37] LABS: INR 1.1; Prothrombin Time 14.2 Seconds (11.1-14.7)
[2025-04-25 05:38] LABS: Partial Thromboplastin Time 29.4 Seconds (22.3-36.8)
[2025-04-25 05:39] LABS: Alanine Aminotransferase 65 U/L (6-50); Albumin Level 4.5 g/dL (3.5-5.1); Alkaline Phosphatase 96 U/L (38-126); Anion Gap 12 mmol/L (4-12); Aspartate Amino Transferase 52 U/L (17-59); Bilirubin,Total 0.5 mg/dL (0.2-1.3); Blood Urea Nitrogen 31 mg/dL (9-20); Calcium 9.9 mg/dL (8.4-10.2); Carbon Dioxide 27 mmol/L (22-30); Chloride 101 mmol/L (98-107); Estimated CRCL calculation 77 ml/min; Estimated Glomerular Filt Rate > 60; Glucose 110 mg/dL (65-110); Potassium 3.8 mmol/L (3.4-5.0); Sodium 140 mmol/L (137-145); Total Protein 8.1 g/dL (6.3-8.2)
[2025-04-25] MEDS: PANTOPRAZOLE SODIUM IV 40 MG VIAL IV PUSH ×2 (05:46→17:18)
[2025-04-25 05:59] LABS: Lipase 127 U/L (23-300)
--- NOTE | 2025-04-25 06:02 | ED.GENADULT ---
HPI - General Adult General Chief complaint: GI Bleed Stated complaint: rectal bleeding - bright red Time Seen by Provider: 04/25/25 05:11 History of Present Illness HPI narrative: Patient is a 49-year-old gentleman who presents emergency department chief complaint of GI bleeding. Patient was recently in the hospital and was discharged to rehab [place] patient started having large clots from his rectum patient is not on blood thinners does have history of liver disease and alcohol abuse Related Data Home Medications ?Medication ?Instructions ?Recorded ?Confirmed ?Last Taken ?Type albuterol 90 mcg/actuation aerosol 90 mcg inhalation TID PRN 06/12/22 03/30/25 03/30/25 History inhaler Shortness Of Breath lisinopril 20 mg tablet 20 mg PO DAILY 07/23/24 03/30/25 03/23/25 History folic acid 1 mg tablet 1 mg PO DAILY 03/30/25 03/30/25 03/29/25 History levothyroxine 50 mcg tablet 50 mcg PO DAILY 03/30/25 03/30/25 03/29/25 History Allergies Allergy/AdvReac Type Severity Reaction Status Date / Time tramadol AdvReac Intermediate Agitated Verified 03/30/25 11:41 Review of Systems Review of Systems: A 10 system review of systems was completed on the patient and is negative except for what is stated in the HPI. Nursing and ancillary documentation was reviewed. [facility] Past Medical History Medical History Peripheral neuropathy Alcohol withdrawal syndrome Neuropathy Chronic hyponatremia Hepatic steatosis Noted on CT scan 06/2022 Tobacco abuse Hypertension Asthma Anxiety Surgical History Surgical History H/O knee surgery H/O spinal fusion Social History Social History Social History: The patient lives with his significant other. He has 2 daughters. He has smoked 1 pack per day since he was a teenager. He has a history of heavy alcohol use drinking up to 1 5th of vodka every other day with recent decrease in alcohol consumption down to 2-3 beers a day on weekdays and 10 beers a day on weekends. 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 The patient smokes marijuana nightly. Code status: Full code Smoking packs per day: 1 Smoking cigarettes per day: 20.0 Years smoked: 30 Smoking pack-years: 30.00 Smoking status: Current every day smoker Tobacco type: cigarettes Alcohol intake: current Drinks per week: 20 Alcohol use details: social Substance use: current Substance use type: marijuana Last use: 03/29/2025 Do You Feel Safe in your Home?: Yes Lack of Transportation: No Lack of Food: Never True Current Housing: I Have Housing Concerned About Future Housing: No Difficulty Paying Gas/Electric Bills: No Difficulty Paying for Meds: No Currently Unemployed: No Education: Associate Degree Difficulty w/ Childcare or Family Care: No Living arrangements: with family Gender identity (if verbalized by the patient): Male Spiritual care concerns: No Exam Narrative: GENERAL: Well-appearing, well-nourished, and in no acute distress. HEAD: Normocephalic, atraumatic. EYES: PERRLA and EOMI. ENT: Nares clear, no rhinorrhea or epistaxis. Mucous membranes moist. NECK: Supple. CHEST: Clear to auscultation. No respiratory distress. HEART: Regular rate and rhythm. No murmur heard. Normal peripheral pulses. ABDOMEN: Soft, nontender, nondistended, normal active bowel sounds. : Large amount of blood at the rectal area EXTREMITIES: Normal range of motion. No edema. SKIN: Warm, dry, no rash. NEURO: No focal deficits. Alert and oriented x3. PSYCH: Normal mood and affect. Course Vital Signs Vital signs: Vital Signs Temperature 36.7 C 04/25/25 05:04 Pulse Rate 110 H 04/25/25 05:04 Respiratory Rate 10 L 04/25/25 05:04 Blood Pressure 99/68 L 04/25/25 05:04 Pulse Oximetry 98 04/25/25 05:04 Oxygen Delivery Autopap 04/25/25 05:04 Temperature 36.7 C 04/25/25 05:04 Pulse Rate 101 H 04/25/25 05:46 Respiratory Rate 18 04/25/25 05:46 Blood Pressure 94/72 L 04/25/25 05:46 Pulse Oximetry 99 04/25/25 05:46 Oxygen Delivery Autopap 04/25/25 05:04 Medical Decision Making [facility] Narrative Medical decision making narrative: Differential diagnosis includes GI bleed, anemia, colitis, Laboratory studies were obtained which showed a hemoglobin of 12.4 coags showed an INR 1.1 electrolytes showed a BUN of 31 liver enzymes were essentially normal A CTA abdomen pelvis was ordered to look for contrast extravasation due to the large amount of blood in the rectal area CTA of the abdomen pelvis showed no acute abnormality Patient started on Protonix and will be admitted to the hospital Vital Signs Vital Signs: Vital Signs Temperature 36.7 C 04/25/25 05:04 Pulse Rate 110 H 04/25/25 05:04 Respiratory Rate 10 L 04/25/25 05:04 Blood Pressure 99/68 L 04/25/25 05:04 Pulse Oximetry 98 04/25/25 05:04 Oxygen Delivery Autopap 04/25/25 05:04 Temperature 36.7 C 04/25/25 05:04 Pulse Rate 101 H 04/25/25 05:46 Respiratory Rate 18 04/25/25 05:46 Blood Pressure 94/72 L 04/25/25 05:46 Pulse Oximetry 99 04/25/25 05:46 Oxygen Delivery Autopap 04/25/25 05:04 Lab Data 04/25/25 05:14 04/25/25 05:14 Labs: Lab Results 04/25/25 04/25/25 04/25/25 Range/Units 05:13 05:14 05:48 WBC 8.0 (4.5-10.0) K/mm3 RBC 4.10 L (4.6-6.20) M/mm3 Hgb 12.4 L (14.0-18.0) g/dL Hct 37.7 L (42.0-52.0) % MCV 92.0 (80-100) fl MCH 30.2 (26-34) pg MCHC 32.9 (32-36) g/dl RDW 16.6 H (11.5-14.5) % Plt Count 310 (150-375) k/mm3 MPV 11.0 H (7.4-10.4) fl Immature Gran % (Auto) 0.5 (0-0.5) % Neut % (Auto) 55.8 (45.5-73.1) % Lymph % (Auto) 32.9 (18.3-44.2) % [place] % (Auto) 8.6 H (2.6-8.5) % Eos % (Auto) 1.2 (0-4.4) % Baso % (Auto) 1.0 (0.2-1.2) % Lymph # (Auto) 2.64 (0.9-3.2) K/mm3 [place] # (Auto) 0.7 H (0.1-0.6) K/mm3 Eos # (Auto) 0.1 (0-0.3) K/mm3 Baso # (Auto) 0.1 (0.0-0.1) K/mm3 Abs Immat Gran (auto) 0.04 H (0.00-0.031) K/mm3 Absolute Neuts (auto) 4.5 (1.3-6.7) K/mm3 Absolute Nucleated RBC 0.000 (0.0-0.012) K/mm3 Nucleated RBC % 0.0 (0.0-0.2) % PT 14.2 (11.1-14.7) Seconds INR 1.1 APTT 29.4 (22.3-36.8) Seconds Sodium 140 (137-145) mmol/L Potassium 3.8 (3.4-5.0) mmol/L Chloride 101 (98-107) mmol/L Carbon Dioxide 27 (22-30) mmol/L Anion Gap 12 (4-12) mmol/L BUN 31 H D (9-20) mg/dL Creatinine 1.02 (0.7-1.3) mg/dL Estim Creat Clear Calc 77 ml/min Estimated GFR > 60 (59 - ) Glucose 110 (65-110) mg/dL Lactic Acid 0.9 (0.7-2.0) mmol/L Calcium 9.9 (8.4-10.2) mg/dL Total Bilirubin 0.5 (0.2-1.3) mg/dL AST 52 (17-59) U/L ALT 65 H (6-50) U/L Alkaline Phosphatase 96 (38-126) U/L Total Protein 8.1 (6.3-8.2) g/dL Albumin 4.5 (3.5-5.1) g/dL Lipase 127 (23-300) U/L Blood Type A Positive Antibody Screen Negative Discharge Plan Discharge Clinical Impression: GI bleed Patient Disposition: Still a Patient Condition: Stable Patient Language: Tam[place] Prescriptions: No Action lisinopril 20 mg tablet 20 mg PO DAILY Patient Comments: Patient reports he has not been taking it as he should albuterol 90 mcg/actuation Aerosol 90 mcg INHALATION TID PRN (Reason: Shortness Of Breath) omeprazole 20 mg tablet,delayed release (DR/EC) 20 mg PO DAILY Qty: 60 0RF folic acid 1 mg tablet 1 mg PO DAILY levothyroxine 50 mcg tablet 50 mcg PO DAILY thiamine HCl (vitamin B1) [Vitamin B-1] 100 mg Tablet 100 mg PO QAM 30 Days Qty: 30 1RF citalopram [Celexa] 20 mg Tablet 10 mg PO QAM 30 Days Qty: 15 1RF bisacodyl [Laxative (bisacodyl)] 5 mg Tablet,Delayed Release (Dr/Ec) 5 mg PO QAM 30 Days Qty: 30 0RF Artificial Tears([id number]) 1-0.2-0.2 % Drops 1 drp EACH EYE QID PRN (Reason: Dry Eye(S)) 30 Days Qty: 15 0RF duloxetine [Cymbalta] 30 mg Capsule,Delayed Release(Dr/Ec) 30 mg PO Q12HR 30 Days Qty: 60 1RF pregabalin [Lyrica] 75 mg Capsule 150 mg PO TID 30 Days Qty: 180 1RF multivitamin Tablet 1 tablet PO DAILY Qty: 30 1RF methocarbamol 750 mg tablet 750 mg PO TID PRN (Reason: muscle spasm) Qty: 14 0RF hydrocodone-acetaminophen 5-325 mg tablet 1 tablet PO Q8H PRN (Reason: pain) Qty: 7 0RF Follow-up/Referrals: Fareed Nuñez [Other]
[2025-04-25] MEDS: SODIUM CHLORIDE 0.9% IV 1,000 ML 999 ML IV CONT (06:08)
[2025-04-25 07:49] LABS: Hematocrit 34.1 % (42.0-52.0); Hemoglobin 11.0 g/dL (14.0-18.0)
--- NOTE | 2025-04-25 08:38 | P.CONGI_ITS ---
Assessment and Plan Assessment and plan (1) GI bleed: Code(s): K92.2 - Gastrointestinal hemorrhage, unspecified Status: Acute Assessment and Plan: stable but given alcohol abuse will do EGD tomorrow, assess if esophagitis, ulcer or even portal htn iv protonix he had colonoscopy 2-3 years ago but if egd negative then will consider colonoscopy the following day monitor for more signs of bleeding (2) Rectal bleeding: Code(s): K62.5 - Hemorrhage of anus and rectum Status: Acute (3) Elevated liver enzymes: Code(s): R74.8 - Abnormal levels of other serum enzymes Status: Inactive Assessment and Plan: mild elevated, near baseline (4) Chronic alcoholic liver disease: Code(s): K70.9 - Alcoholic liver disease, unspecified Status: Acute (5) Anemia: Code(s): D64.9 - Anemia, unspecified Status: Acute Assessment and Plan: chronic and stable monitor h/h (6) Neuropathy: Code(s): G62.9 - Polyneuropathy, unspecified Status: Acute Assessment and Plan: ? from alcohol use he was in rehab GI Consult Note Consult date/time: 04/25/25 08:38 Reason for consult: rectal bleeding, alcohol abuse HPI: Tyree Rodriguez is a 49 year old male with past medical history of alcohol abuse, essential hypertension, GERD, hepatic steatosis, asthma and tobacco use with recent admission to hospital with neuropathy unable to walk for 3 months, neurological work up probably related to heavy alcohol use and he was sent to local rehab few days ago, lumbar puncture was obtained. He is back to ER after staff at rehab place noted blood with clots in stool, he denies abdominal pain, nausea, fever. He just has chronic pain in extremities and asking for pain meds. He is hemodynamically stable and still in ER. Labs hgb 11, bun 31, alt 65, other liver enzymes normal, creat 1. CT scan a/p no major findings. Started on iv protonix. He says that had EGD/colonoscopy 2-3 years ago, apparently no major findings. Review of Systems 2 Constitutional: Constitutional: Denies chills Eyes: Eyes: Denies blurry vision ENT: Reports Normal hearing present Cardiovascular: Cardiovascular: Denies chest pain Respiratory: Respiratory: Denies cough Gastrointestinal: Gastrointestinal: Denies abdominal pain and Reports hematochezia Genitourinary: Genitourinary: Denies urinary frequency Musculoskeletal: Comments: neuropathy Integumentary/Breasts: Skin/Breast: Denies rash Neurologic: Comments: neuropathy Psychiatric: Psychiatric: Denies confusion [facility] Past Medical History Medical History (Updated 04/25/25 @ 08:43 by Avni Sampson MD) Chronic alcoholic liver disease Rectal bleeding Peripheral neuropathy Alcohol withdrawal syndrome Neuropathy Chronic hyponatremia Hepatic steatosis Noted on CT scan 06/2022 Tobacco abuse Hypertension Asthma Anxiety Surgical History Surgical History H/O knee surgery H/O spinal fusion Social History Social History Social History: The patient lives with his significant other. He has 2 daughters. He has smoked 1 pack per day since he was a teenager. He has a history of heavy alcohol use drinking up to 1 5th of vodka every other day with recent decrease in alcohol consumption down to 2-3 beers a day on weekdays and 10 beers a day on weekends. 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 The patient smokes marijuana nightly. Code status: Full code Smoking packs per day: 1 Smoking cigarettes per day: 20.0 Years smoked: 30 Smoking pack-years: 30.00 Smoking status: Current every day smoker Tobacco type: cigarettes Alcohol intake: current Drinks per week: 20 Alcohol use details: social Substance use: current Substance use type: marijuana Last use: 03/29/2025 Do You Feel Safe in your Home?: Yes Lack of Transportation: No Lack of Food: Never True Current Housing: I Have Housing Concerned About Future Housing: No Difficulty Paying Gas/Electric Bills: No Difficulty Paying for Meds: No Currently Unemployed: No Education: Associate Degree Difficulty w/ Childcare or Family Care: No Living arrangements: with family Gender identity (if verbalized by the patient): Male Spiritual care concerns: No Meds Home Medications and Allergies Home Medications ?Medication ?Instructions ?Recorded ?Confirmed ?Type albuterol 90 mcg/actuation aerosol 90 mcg inhalation TID PRN 06/12/22 04/25/25 History inhaler Shortness Of Breath lisinopril 20 mg tablet 20 mg PO DAILY 07/23/24 04/25/25 History omeprazole 20 mg tablet,delayed 20 mg PO DAILY #60 tabs 09/21/24 04/25/25 Rx release hydrocodone 5 mg-acetaminophen 325 1 tablet PO Q8H PRN pain #7 tabs 02/22/25 04/25/25 Rx mg tablet methocarbamol 750 mg tablet 750 mg PO TID PRN muscle spasm #14 02/22/25 04/25/25 Rx tabs folic acid 1 mg tablet 1 mg PO DAILY 03/30/25 04/25/25 History levothyroxine 50 mcg tablet 50 mcg PO DAILY 03/30/25 04/25/25 History bisacodyl 5 mg tablet,delayed 5 mg PO QAM 30 days #30 tabs 04/21/25 04/25/25 Rx release (Laxative (bisacodyl)) citalopram 20 mg tablet (Celexa) 10 mg (1/2 x 20 mg) PO QAM 30 days 04/21/25 04/25/25 Rx #15 tabs duloxetine 30 mg capsule,delayed 30 mg PO Q12HR 30 days #60 caps 04/21/25 04/25/25 Rx release (Cymbalta) multivitamin 1 tablet PO DAILY #30 tabs 04/21/25 04/25/25 Rx peg [id number] 1 1 drp EACH EYE QID PRN Dry Eye(S) 04/21/25 04/25/25 Rx %-0.2 %-0.2 % eye drops 30 days #15 mL (Artificial Tears ([id number])) pregabalin 75 mg capsule (Lyrica) 150 mg (2 x 75 mg) PO TID 30 days 04/21/25 04/25/25 Rx #180 caps thiamine HCl (vitamin B1) 100 mg 100 mg PO QAM 30 days #30 tabs 04/21/25 04/25/25 Rx tablet (Vitamin B-1) baclofen 5 mg tablet 5 mg PO TID spastic movements 04/25/25 04/25/25 History Allergies Allergy/AdvReac Type Severity Reaction Status Date / Time tramadol AdvReac Intermediate Agitated Verified 03/30/25 11:41 Vital Signs Vital Signs - 24 hr 04/25/25 05:04 04/25/25 05:15 04/25/25 05:31 Temperature 98.1 F Pulse Rate 110 H 107 H 108 H Respiratory Rate 10 L 18 17 Blood Pressure 99/68 L 103/82 104/86 Pulse Oximetry 98 99 100 Oxygen Delivery Autopap 04/25/25 05:46 04/25/25 07:10 Temperature Pulse Rate 101 H 106 H Respiratory Rate 18 20 Blood Pressure 94/72 L 115/93 H Pulse Oximetry 99 98 Oxygen Delivery Exam 2 Const: General: comfortable and no acute distress HENMT: Face/Nose/Sinus: Normal nares present Eyes: General: appearance normal, both eyes and all related structures Neck: Neck: supple Resp: Auscultation: clear to auscultation bilaterally Cardio: Rate: regular rate Rhythm: regular rhythm GI: Inspection: non-distended GI Palp: Yes Soft to palpation and No Tenderness to palpation present (GI) Auscultation: normal bowel sounds Skin: General skin exam: normal color Neuro: Speech: normal speech Other: generalized weakness legs Extrem: General: normal to inspection Psych: Affect: Anxious affect present Results Labs 04/25/25 07:34 04/25/25 05:14 Labs: Short CBC 04/25/25 04/25/25 Range/Units 05:14 07:34 WBC 8.0 (4.5-10.0) K/mm3 Hgb 12.4 L 11.0 L (14.0-18.0) g/dL Hct 37.7 L 34.1 L (42.0-52.0) % Plt Count 310 (150-375) k/mm3 [facility] 04/25/25 05:14 Sodium 140 Potassium 3.8 Chloride 101 Carbon Dioxide 27 BUN 31 H D Creatinine 1.02 Glucose 110 Calcium 9.9 Liver Function 04/25/25 Range/Units 05:14 Total Bilirubin 0.5 (0.2-1.3) mg/dL AST 52 (17-59) U/L ALT 65 H (6-50) U/L Alkaline Phosphatase 96 (38-126) U/L Albumin 4.5 (3.5-5.1) g/dL
[2025-04-25] MEDS: MULTIVITAMINS THERAPEUTIC TAB (*BKC) 1 TABLET PO (10:01)
[2025-04-25] MEDS: LEVOTHYROXINE SODIUM 50 MCG TABLET PO (10:02)
[2025-04-25] MEDS: THIAMINE HCL 100 MG TABLET PO (10:02)
[2025-04-25] MEDS: PREGABALIN (*CRX) 75 MG CAPSULE 150 MG PO ×3 (10:02→17:19)
[2025-04-25] MEDS: FOLIC ACID 1 MG TABLET PO (10:03)
[2025-04-25] MEDS: CITALOPRAM HYDROBROMIDE 10 MG TABLET PO (10:03)
[2025-04-25] MEDS: SODIUM CHLORIDE 0.9% IV 1,000 ML 125 ML IV CONT ×2 (10:03→18:40)
[2025-04-25] MEDS: HYDROcodone/acetaminophen (*CRX) 5-325 MG TABLET 1 TAB PO ×2 (10:04→19:33)
--- NOTE | 2025-04-25 10:26 | P.HP_ITS ---
H&P: HPI History of Present Illness Date/Time: 04/25/25 10:26 Chief Complaint: GI bleed. Narrative: Patient is a 49 year old male that was at a SNF for rehab. Patient reports this morning he when he woke up his depends was full of blood and then he had to go to the restroom blood clots came out of rectum. Patient denies chest pain, palpitations, headache, dizziness, nausea, or vomiting. Patient is not on blood thinners, he does have a history of liver disease from alcohol abuse. Patient reports that he has jerking in his hands and legs. Patient reports that has trouble gripping and hands feel cold at times. Numbness and tingling. ER work up: H&H on admission 11.0/34.1, BUN 31, ALT 65. Abdominal pelvis CTA no significant abnormalities seen. GI consulted. Review of Systems Review of Systems: All systems reviewed & are unremarkable except as noted in HPI and below PMFSH Past Medical History Medical History (Updated 04/25/25 @ 08:43 by Avni Sampson MD) Chronic alcoholic liver disease Rectal bleeding Peripheral neuropathy Alcohol withdrawal syndrome Neuropathy Chronic hyponatremia Hepatic steatosis Noted on CT scan 06/2022 Tobacco abuse Hypertension Asthma Anxiety Surgical History Surgical History H/O knee surgery H/O spinal fusion Social History Social History Social History: The patient lives with his significant other. He has 2 daughters. He has smoked 1 pack per day since he was a teenager. He has a history of heavy alcohol use drinking up to 1 5th of vodka every other day with recent decrease in alcohol consumption down to 2-3 beers a day on weekdays and 10 beers a day on weekends. 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 The patient smokes marijuana nightly. Code status: Full code Smoking packs per day: 1 Smoking cigarettes per day: 20.0 Years smoked: 30 Smoking pack-years: 30.00 Smoking status: Current every day smoker Alcohol intake: current Drinks per week: 20 Alcohol use details: social Substance use: current Substance use type: marijuana Last use: 03/29/2025 Do You Feel Safe in your Home?: Yes Lack of Transportation: No Lack of Food: Never True Current Housing: I Have Housing Concerned About Future Housing: No Difficulty Paying Gas/Electric Bills: No Difficulty Paying for Meds: No Currently Unemployed: No Education: Associate Degree Difficulty w/ Childcare or Family Care: No Living arrangements: with family Gender identity (if verbalized by the patient): Male Spiritual care concerns: No Meds Home Medications and Allergies Home Medications ?Medication ?Instructions ?Recorded ?Confirmed ?Type albuterol 90 mcg/actuation aerosol 90 mcg inhalation TID PRN 06/12/22 04/25/25 History inhaler Shortness Of Breath lisinopril 20 mg tablet 20 mg PO DAILY 07/23/24 04/25/25 History omeprazole 20 mg tablet,delayed 20 mg PO DAILY #60 tabs 09/21/24 04/25/25 Rx release hydrocodone 5 mg-acetaminophen 325 1 tablet PO Q8H PRN pain #7 tabs 02/22/25 04/25/25 Rx mg tablet methocarbamol 750 mg tablet 750 mg PO TID PRN muscle spasm #14 02/22/25 04/25/25 Rx tabs folic acid 1 mg tablet 1 mg PO DAILY 03/30/25 04/25/25 History levothyroxine 50 mcg tablet 50 mcg PO DAILY 03/30/25 04/25/25 History bisacodyl 5 mg tablet,delayed 5 mg PO QAM 30 days #30 tabs 04/21/25 04/25/25 Rx release (Laxative (bisacodyl)) citalopram 20 mg tablet (Celexa) 10 mg (1/2 x 20 mg) PO QAM 30 days 04/21/25 04/25/25 Rx #15 tabs duloxetine 30 mg capsule,delayed 30 mg PO Q12HR 30 days #60 caps 04/21/25 04/25/25 Rx release (Cymbalta) multivitamin 1 tablet PO DAILY #30 tabs 04/21/25 04/25/25 Rx peg [id number] 1 1 drp EACH EYE QID PRN Dry Eye(S) 04/21/25 04/25/25 Rx %-0.2 %-0.2 % eye drops 30 days #15 mL (Artificial Tears ([id number])) pregabalin 75 mg capsule (Lyrica) 150 mg (2 x 75 mg) PO TID 30 days 04/21/25 04/25/25 Rx #180 caps thiamine HCl (vitamin B1) 100 mg 100 mg PO QAM 30 days #30 tabs 04/21/25 Rx tablet (Vitamin B-1) baclofen 5 mg tablet 5 mg PO TID spastic movements 04/25/25 04/25/25 History Allergies Allergy/AdvReac Type Severity Reaction Status Date / Time tramadol AdvReac Intermediate Agitated Verified 03/30/25 11:41 Vital Signs Vital Signs - 24 hr 04/25/25 05:04 04/25/25 05:15 04/25/25 05:31 Temperature 98.1 F Pulse Rate 110 H 107 H 108 H Respiratory Rate 10 L 18 17 Blood Pressure 99/68 L 103/82 104/86 Pulse Oximetry 98 99 100 Oxygen Delivery Autopap 04/25/25 05:46 04/25/25 06:15 04/25/25 06:30 Temperature Pulse Rate 101 H Respiratory Rate 18 Blood Pressure 94/72 L Pulse Oximetry 99 97 97 Oxygen Delivery 04/25/25 06:45 04/25/25 07:00 04/25/25 07:10 Temperature Pulse Rate 106 H Respiratory Rate 20 Blood Pressure 115/93 H Pulse Oximetry 97 99 98 Oxygen Delivery 04/25/25 07:10 04/25/25 07:15 04/25/25 07:17 Temperature Pulse Rate Respiratory Rate Blood Pressure 119/101 H 129/75 Pulse Oximetry 95 98 100 Oxygen Delivery 04/25/25 07:31 04/25/25 07:46 04/25/25 08:01 Temperature Pulse Rate Respiratory Rate Blood Pressure 102/82 110/77 109/97 H Pulse Oximetry 99 97 Oxygen Delivery 04/25/25 08:15 04/25/25 08:16 04/25/25 08:30 Temperature Pulse Rate 102 H 103 H Respiratory Rate 17 18 19 Blood Pressure 124/101 H Pulse Oximetry 98 99 97 Oxygen Delivery 04/25/25 08:31 04/25/25 08:42 04/25/25 08:45 Temperature Pulse Rate 104 H 103 H Respiratory Rate 13 20 14 Blood Pressure 124/91 H 124/91 H Pulse Oximetry 98 99 97 Oxygen Delivery 04/25/25 08:46 Temperature Pulse Rate 104 H Respiratory Rate 15 Blood Pressure 123/95 H Pulse Oximetry 100 Oxygen Delivery Exam Const: General: comfortable and no acute distress Eyes: Sclera: sclerae normal Pupils: Equal, round and reactive pupils present Resp: Effort & Inspection: normal respiratory effort Auscultation: clear to auscultation bilaterally Cardio: Rate: regular rate Rhythm: regular rhythm GI: GI Palp: Yes Soft to palpation Auscultation: normal bowel sounds Neuro: Speech: normal speech Extrem: General: no pedal edema Psych: Mental Status: mental status grossly normal Affect: normal affect H&P: Results Labs Labs: Short CBC 04/25/25 04/25/25 Range/Units 05:14 07:34 WBC 8.0 (4.5-10.0) K/mm3 Hgb 12.4 L 11.0 L (14.0-18.0) g/dL Hct 37.7 L 34.1 L (42.0-52.0) % Plt Count 310 (150-375) k/mm3 BMP 04/25/25 05:14 Sodium 140 Potassium 3.8 Chloride 101 Carbon Dioxide 27 BUN 31 H D Creatinine 1.02 Glucose 110 Calcium 9.9 Liver Function 04/25/25 Range/Units 05:14 Total Bilirubin 0.5 (0.2-1.3) mg/dL AST 52 (17-59) U/L ALT 65 H (6-50) U/L Alkaline Phosphatase 96 (38-126) U/L Albumin 4.5 (3.5-5.1) g/dL Assessment and Plan Assessment and plan (1) GI bleed: Code(s): K92.2 - Gastrointestinal hemorrhage, unspecified Status: Acute Assessment and Plan: * Clear liquids. * No stools since arrived. * GI consulted, appreciate recommendations. * Pantoprazole 40 mg IVP q12. * Serial CBC. * NPO after midnight for EGD. * Patient had colonoscopy 2-3 years ago but if egd negative then will consider colonoscopy the following day monitor for more signs of bleeding. * NS @ 125 ml/hr. (2) Chronic alcoholic liver disease: Code(s): K70.9 - Alcoholic liver disease, unspecified Status: Acute Assessment and Plan: * CIWA monitoring. * Encourage to abstain from alcohol. * AST 52, ALT 65, alkaline phosphatase 96. (3) Anemia: Code(s): D64.9 - Anemia, unspecified Status: Acute Assessment and Plan: * H&H 11.0/35.0. * Monitor serial CBC's. * Monitor for signs of bleeding. (4) Generalized weakness: Code(s): R53.1 - Weakness Status: Acute Assessment and Plan: * Restart PT/OT once there is no further bleeding. (5) Peripheral neuropathy: Code(s): G62.9 - Polyneuropathy, unspecified Status: Acute Assessment and Plan: * Thiamine 100 mg PO daily. * Lyrica 150 mg PO TID. Quality VTE Prophylaxis VTE prophylaxis: mechanical ordered Hospitalist MIPS Advance Care Plan I have confirmed that the patient's Advanced Care Plan is present, code status is documented, or surrogate decision maker is listed in patient medical record.: Yes Medication Reconciliation I have utilized all available resources to obtain, update and review the patients current medications (includes all prescriptions, OTC, herbals, cannabis, and nutritional supplements).: Yes
--- NOTE | 2025-04-25 10:49 | ADMGEN ---
This patient, Tyree Rodriguez, was admitted to 3 Med Surg Room 317-02. Patient/family oriented to hospital policies and general routines including ID bracelet, bed and alarms, visiting hours, pain management, procedures, bathroom and other care routines, personal items, smoking policy, room service/diet, and visiting hours. Information on how to activate the Rapid Response Team has been discussed. Patient/Family are encouraged to report perceived risks to care and to ask questions if they do not understand what they are told or what they should do.
[2025-04-25] MEDS: BACLOFEN 5 MG TABLET PO ×2 (12:10→17:19)
[2025-04-25 12:45] LABS: Creatine Kinase 38 U/L (55-170); Magnesium 2.3 mg/dL (1.6-2.3)
[2025-04-25 13:22] LABS: Hematocrit 35.0 % (42.0-52.0); Hemoglobin 11.0 g/dL (14.0-18.0)
[2025-04-25 19:37] LABS: Hematocrit 32.8 % (42.0-52.0); Hemoglobin 10.5 g/dL (14.0-18.0)
[2025-04-25] MEDS: ACETAMINOPHEN 325 MG TABLET 650 MG PO (22:50)
[2025-04-25] MEDS: LIDOCAINE 5% PATCH 1 PATCH TRANSDERM (22:51)
[2025-04-26] VITALS (15 sets, daily range): BP systolic 114–128; BP diastolic 75–89; PULSE 82–103; RESP 12–30; TEMP 36.3–37; O2SAT 97–100; BMI 25.0
[2025-04-26 01:37] LABS: Hematocrit 32.4 % (42.0-52.0); Hemoglobin 10.3 g/dL (14.0-18.0); Immature Granulocyte Percent A 0.7 % (0-0.5); Lymphocytes Absolute Auto 2.13 K/mm3 (0.9-3.2); Mean Corpuscular HGB Conc 31.8 g/dl (32-36); Mean Corpuscular Hemoglobin 29.6 pg (26-34); Mean Corpuscular Volume 93.1 fl (80-100); Nucleated Red Blood Cells Absolute Auto 0.000 K/mm3 (0.0-0.012); Nucleated Red Blood Cells Perc 0.0 % (0.0-0.2); Platelet Count Result 227 k/mm3 (150-375); Red Blood Count 3.48 M/mm3 (4.6-6.20); White Blood Count 6.0 K/mm3 (4.5-10.0)
[2025-04-26 01:52] LABS: Alanine Aminotransferase 50 U/L (6-50); Albumin Level 3.8 g/dL (3.5-5.1); Alkaline Phosphatase 78 U/L (38-126); Anion Gap 10 mmol/L (4-12); Aspartate Amino Transferase 40 U/L (17-59); Bilirubin,Total 0.4 mg/dL (0.2-1.3); Blood Urea Nitrogen 22 mg/dL (9-20); Calcium 9.1 mg/dL (8.4-10.2); Carbon Dioxide 23 mmol/L (22-30); Chloride 106 mmol/L (98-107); Estimated CRCL calculation 109 ml/min; Estimated Glomerular Filt Rate > 60; Glucose 95 mg/dL (65-110); Magnesium 2.0 mg/dL (1.6-2.3); Potassium 3.9 mmol/L (3.4-5.0); Sodium 139 mmol/L (137-145); Total Protein 6.9 g/dL (6.3-8.2)
[2025-04-26 02:02] LABS: INR 1.1; Prothrombin Time 14.1 Seconds (11.1-14.7)
[2025-04-26] MEDS: SODIUM CHLORIDE 0.9% IV 1,000 ML 125 ML IV CONT ×2 (02:46→09:45)
[2025-04-26] MEDS: HYDROcodone/acetaminophen (*CRX) 5-325 MG TABLET 1 TAB PO ×3 (04:27→20:40)
[2025-04-26] MEDS: LEVOTHYROXINE SODIUM 50 MCG TABLET PO (05:22)
[2025-04-26 06:23] LABS: Add Urine Microscopic? YES; Appearance Urine Clear (Clear); Glucose Urine UA Negative (Negative); Leukocyte Esterase Ur 2+ LEU/UL (Negative); Nitrate Urine Negative (Negative); Non Pathogenic Casts 0-2; Specific Grav Ur 1.029 (1.001-1.035)
[2025-04-26 06:24] LABS: Hematocrit 30.9 % (42.0-52.0); Hemoglobin 9.7 g/dL (14.0-18.0)
[2025-04-26] MEDS: MULTIVITAMINS THERAPEUTIC TAB (*BKC) 1 TABLET PO (09:37)
[2025-04-26] MEDS: BACLOFEN 5 MG TABLET PO (09:38)
[2025-04-26] MEDS: THIAMINE HCL 100 MG TABLET PO (09:38)
[2025-04-26] MEDS: PREGABALIN (*CRX) 75 MG CAPSULE 150 MG PO ×3 (09:38→18:03)
[2025-04-26] MEDS: FOLIC ACID 1 MG TABLET PO (09:38)
[2025-04-26] MEDS: PANTOPRAZOLE SODIUM IV 40 MG VIAL IV PUSH (09:39)
[2025-04-26] MEDS: CITALOPRAM HYDROBROMIDE 10 MG TABLET PO (09:45)
--- NOTE | 2025-04-26 12:14 | P.PNIM_ITS ---
Progress Note: A&P Assessment and Plan (1) GI bleed: Code(s): K92.2 - Gastrointestinal hemorrhage, unspecified Status: Acute Assessment and Plan: * Clear liquids. * No stools since arrived. * GI consulted, appreciate recommendations. * Pantoprazole 40 mg IVP q12. * Serial CBC. Current H&H 9.7/30.9. * NPO for EGD today. * Patient had colonoscopy 2-3 years ago but if egd negative then will consider colonoscopy the following day monitor for more signs of bleeding. * LR @ 150 ml/hr. (2) Chronic alcoholic liver disease: Code(s): K70.9 - Alcoholic liver disease, unspecified Status: Acute Assessment and Plan: * CIWA monitoring. * Encourage to abstain from alcohol. * AST 52>40, ALT 65>50, alkaline phosphatase 96>78. (3) Anemia: Code(s): D64.9 - Anemia, unspecified Status: Acute Assessment and Plan: * H&H 9.7/30.9. * Monitor serial CBC's. * Monitor for signs of bleeding. (4) Generalized weakness: Code(s): R53.1 - Weakness Status: Acute Assessment and Plan: * Restart PT/OT once there is no further bleeding. (5) Peripheral neuropathy: Code(s): G62.9 - Polyneuropathy, unspecified Status: Acute Assessment and Plan: * Thiamine 100 mg PO daily. * Lyrica 150 mg PO TID. (6) Muscle spasm: Code(s): M62.838 - Other muscle spasm Status: Acute Assessment and Plan: * Increase Baclofen 10 mg PO TID. (7) Severe protein-calorie malnutrition: Code(s): E43 - Unspecified severe protein-calorie malnutrition Status: Acute Assessment and Plan: * Patient was just discharged 04/21, small animal veterinarian team followed during long stay for appetite. Patient was not eating solid food, mostly only drinking Ensure. * Add Ensure TID. * Meets criteria for severe malnutrition. Lost 20 lbs during recent hospitalization. Subjective Date/time seen: 04/26/25 12:14 Interval history: Patient reports pain in legs is a 10, constant throbbing, pins, and needles. Patient denies chest pain, palpitations, headache, dizziness, nausea, or vomiting. NPO for EGD today. Review of Systems Review of Systems: All systems reviewed & are unremarkable except as noted in HPI and below Exam Const: General: no acute distress and uncomfortable Resp: Effort & Inspection: normal respiratory effort Auscultation: clear to auscultation bilaterally Cardio: Rate: regular rate Rhythm: regular rhythm Other: Telemetry- SR 87. GI: GI Palp: Yes Soft to palpation Auscultation: normal bowel sounds Neuro: Speech: normal speech Extrem: General: no pedal edema Psych: Mental Status: mental status grossly normal Affect: normal affect Objective Data Vital Signs Vital Signs: Vital Signs - 24 hr 04/25/25 13:46 04/25/25 14:00 04/25/25 16:00 Temperature 97.7 F Pulse Rate 97 104 H Respiratory Rate 14 Blood Pressure 113/77 Pulse Oximetry 100 Oxygen Delivery Room Air 04/25/25 20:00 04/25/25 20:00 04/25/25 21:26 Temperature 98.8 F Pulse Rate 111 H 108 H Respiratory Rate 20 Blood Pressure 92/60 L Pulse Oximetry 100 Oxygen Delivery Room Air 04/25/25 22:25 04/26/25 00:00 04/26/25 04:00 Temperature Pulse Rate 94 94 Respiratory Rate Blood Pressure 103/77 Pulse Oximetry Oxygen Delivery 04/26/25 05:27 Temperature 98.6 F Pulse Rate 98 Respiratory Rate 12 Blood Pressure 115/86 Pulse Oximetry 97 Oxygen Delivery Intake/Output Intake/Output: Intake & Output 04/23/25 04/24/25 04/25/25 04/26/25 23:59 23:59 23:59 23:59 Intake Total 2750 1872.9 Output Total 650 450 Balance 2100 1422.9 Meds/Results Medications: Active Medications Generic Name Dose Route Start Last Admin Trade Name Freq PRN Reason Stop Dose Admin Acetaminophen 650 mg 04/25/25 09:18 04/25/25 22:50 Acetaminophen 325 Mg Tablet PO 650 mg Q6H PRN Administration Mild Pain (1-3) or Fever Hydrocodone Bitart/Acetaminophen 1 tab 04/25/25 09:49 04/26/25 04:27 Hydrocodone/Acetaminophen (*Crx) 5-325 Mg Tablet PO 1 tab Q8H PRN Administration pain 4-6 Albuterol 1 puff 04/25/25 09:31 Albuterol Sulfate (*Sp) Aerosol 1 Puff INHALATION TIDRT PRN Shortness Of Breath Artificial Tears 1 drop 04/25/25 09:16 Artificial Tears Ophth Soln 15 Ml Bottle EACH EYE QID PRN Dry Eye(S) Baclofen 5 mg 04/25/25 13:00 04/26/25 09:38 Baclofen 5 Mg Tablet PO 5 mg TID BRYON Administration Citalopram Hydrobromide 10 mg 04/25/25 09:30 04/26/25 09:45 Citalopram Hydrobromide 10 Mg Tablet PO 10 mg QAM BRYON Administration Duloxetine HCl 30 mg 04/25/25 09:30 04/26/25 09:38 Duloxetine Hcl 30 Mg Capsule.Dr PO 30 mg Q12HR BRYON Administration Folic Acid 1 mg 04/25/25 09:30 04/26/25 09:38 Folic Acid 1 Mg Tablet PO 1 mg DAILY BRYON Administration Sodium Chloride 1,000 mls @ 125 mls/hr 04/25/25 07:05 04/26/25 09:45 Normal Saline Iv IV CONT 125 mls/hr .Q8H BRYON Administration Levothyroxine Sodium 50 mcg 04/25/25 09:30 04/26/25 05:22 Levothyroxine Sodium 50 Mcg Tablet PO 50 mcg DAILY@0630 BRYON Administration Lidocaine 1 patch 04/25/25 21:00 04/25/25 22:51 Lidocaine 5% Patch TRANSDERM 1 patch HS BRYON Administration Lisinopril 20 mg 04/25/25 09:30 04/26/25 09:37 Lisinopril 20 Mg Tablet PO 20 mg DAILY BRYON Administration Multivitamins Therapeutic 1 tablet 04/25/25 09:30 04/26/25 09:37 Multivitamins Therapeutic Tab (*Bkc) PO 1 tablet DAILY BRYON Administration Pantoprazole Sodium 40 mg 04/25/25 18:00 04/26/25 09:39 Pantoprazole Sodium Iv 40 Mg Vial IV PUSH 40 mg Q12HR BRYON Administration Pregabalin 150 mg 04/25/25 09:30 04/26/25 09:38 Pregabalin (*Crx) 75 Mg Capsule PO 150 mg TID BRYON Administration Prochlorperazine Edisylate 10 mg 04/25/25 09:18 Prochlorperazine Edisylate 10 Mg/2 Ml Vial IV PUSH Q6H PRN Nausea And Vomiting Thiamine HCl 100 mg 06/22/25 09:00 04/26/25 09:38 Thiamine Hcl 100 Mg Tablet PO 100 mg QAM BRYON Administration Radiology Results: ITS Impressions Abdomen/Pelvis CTA 04/25/25 06:27 Impression: No significant abnormalities seen. Labs Labs: Laboratory Results - last 24 hr 04/25/25 04/25/25 04/25/25 05:13 13:17 19:32 WBC RBC Hgb 11.0 L 10.5 L Hct 35.0 L 32.8 L MCV MCH MCHC RDW Plt Count MPV Immature Gran % (Auto) Neut % (Auto) Lymph % (Auto) Dixon % (Auto) Eos % (Auto) Baso % (Auto) Lymph # (Auto) Dixon # (Auto) Eos # (Auto) Baso # (Auto) Abs Immat Gran (auto) Absolute Neuts (auto) Absolute Nucleated RBC Nucleated RBC % PT INR Sodium Potassium Chloride Carbon Dioxide Anion Gap BUN Creatinine Estim Creat Clear Calc Estimated GFR Glucose Calcium Phosphorus 5.4 H Magnesium 2.3 Total Bilirubin AST ALT Alkaline Phosphatase Total Creatine Kinase 38 L Total Protein Albumin Vitamin D 25-Hydroxy 33.4 Urine Color Urine Appearance Urine pH Ur Specific [place] Urine Protein Urine Glucose (UA) Urine Ketones Ur Blood (Man) Urine Nitrate Urine Bilirubin Urine Urobilinogen Leukocyte Esterase Rfl Urine RBC Urine WBC Ur Squamous Epith Cells Urine Bacteria Urine Casts 04/26/25 04/26/25 04/26/25 01:31 06:01 06:04 WBC 6.0 RBC 3.48 L Hgb 10.3 L 9.7 L Hct 32.4 L 30.9 L MCV 93.1 MCH 29.6 MCHC 31.8 L RDW 16.2 H Plt Count 227 MPV 11.0 H Immature Gran % (Auto) 0.7 H Neut % (Auto) 52.9 Lymph % (Auto) 35.4 Dixon % (Auto) 8.0 Eos % (Auto) 1.8 Baso % (Auto) 1.2 Lymph # (Auto) 2.13 Dixon # (Auto) 0.5 Eos # (Auto) 0.1 Baso # (Auto) 0.1 Abs Immat Gran (auto) 0.04 H Absolute Neuts (auto) 3.2 Absolute Nucleated RBC 0.000 Nucleated RBC % 0.0 PT 14.1 INR 1.1 Sodium 139 Potassium 3.9 Chloride 106 Carbon Dioxide 23 Anion Gap 10 BUN 22 H Creatinine 0.71 Estim Creat Clear Calc 109 Estimated GFR > 60 Glucose 95 Calcium 9.1 Phosphorus Magnesium 2.0 Total Bilirubin 0.4 AST 40 ALT 50 Alkaline Phosphatase 78 Total Creatine Kinase Total Protein 6.9 Albumin 3.8 Vitamin D 25-Hydroxy Urine Color Yellow Urine Appearance Clear Urine pH 5.0 Ur Specific [place] 1.029 Urine Protein Negative Urine Glucose (UA) Negative Urine Ketones Trace H Ur Blood (Man) Negative Urine Nitrate Negative Urine Bilirubin Negative Urine Urobilinogen 1.0 Leukocyte Esterase Rfl 2+ H Urine RBC 0-2 Urine WBC 21-50 H Ur Squamous Epith Cells None seen Urine Bacteria Rare Urine Casts 0-2 Quality VTE Prophylaxis VTE prophylaxis: mechanical ordered
[2025-04-26] MEDS: BACLOFEN 10 MG TABLET PO ×2 (12:25→22:04)
--- NOTE | 2025-04-26 13:41 | P.CDI_ITS ---
<Statement entered by Linda Rodríguez, RIRI - 04/26/25 16:07> This documentation has been reviewed and approved. I agree with diagnosis of Severe protein calorie malnutrition. CDI Query Clarification Request BMI: 25.0 Nutritional Diagnostic Statement: Please refer to the comprehensive nutrition assessment for further information. If you agree with diagnosis of Severe protein calorie malnutrition related to loss of appetite as evidenced by intakes <75% needs >1 month; weight loss 11%/1 month. Please specify severity if known: * Mild * Moderate * Severe * Other/Unknown
--- NOTE | 2025-04-26 14:11 | P.PNAN_ITS ---
Anes - Initial Pre Proc Eval Procedure: Operation Date: 04/26/25 14:45 Proposed Procedures p Esophagogastroduodenoscopy - Denis Rausch MD Date/Time: 04/26/25 14:11 Surgeon: Daina Galicia DO Pre Op Diagnosis: GI Bleed Patient Data Age: 49 Gender: M Height: 1.75 m Weight: 76.9 kg Last Vital Signs Temp 37.0 C 04/26/25 05:27 Pulse 82 04/26/25 09:37 Resp 12 04/26/25 05:27 BP 115/86 04/26/25 05:27 Pulse Ox 97 04/26/25 05:27 O2 Del Method Room Air 04/26/25 09:37 Allergies Allergy/AdvReac Type Severity Reaction Status Date / Time tramadol AdvReac Intermediate Agitated Verified 03/30/25 11:41 Home Medications ?Medication ?Instructions ?Recorded ?Confirmed ?Type albuterol 90 mcg/actuation aerosol 90 mcg inhalation TID PRN 06/12/22 04/25/25 History inhaler Shortness Of Breath lisinopril 20 mg tablet 20 mg PO DAILY 07/23/24 04/25/25 History omeprazole 20 mg tablet,delayed 20 mg PO DAILY #60 tabs 09/21/24 04/25/25 Rx release hydrocodone 5 mg-acetaminophen 325 1 tablet PO Q8H PRN pain #7 tabs 02/22/25 04/25/25 Rx mg tablet methocarbamol 750 mg tablet 750 mg PO TID PRN muscle spasm #14 02/22/25 04/25/25 Rx tabs folic acid 1 mg tablet 1 mg PO DAILY 03/30/25 04/25/25 History levothyroxine 50 mcg tablet 50 mcg PO DAILY 03/30/25 04/25/25 History bisacodyl 5 mg tablet,delayed 5 mg PO QAM 30 days #30 tabs 04/21/25 04/25/25 Rx release (Laxative (bisacodyl)) citalopram 20 mg tablet (Celexa) 10 mg (1/2 x 20 mg) PO QAM 30 days 04/21/25 04/25/25 Rx #15 tabs duloxetine 30 mg capsule,delayed 30 mg PO Q12HR 30 days #60 caps 06/18/25 06/22/25 Rx release (Cymbalta) multivitamin 1 tablet PO DAILY #30 tabs 04/21/25 04/25/25 Rx peg [id number] 1 1 drp EACH EYE QID PRN Dry Eye(S) 04/21/25 04/25/25 Rx %-0.2 %-0.2 % eye drops 30 days #15 mL (Artificial Tears ([id number])) pregabalin 75 mg capsule (Lyrica) 150 mg (2 x 75 mg) PO TID 30 days 04/21/25 04/25/25 Rx #180 caps thiamine HCl (vitamin B1) 100 mg 100 mg PO QAM 30 days #30 tabs 04/21/25 04/25/25 Rx tablet (Vitamin B-1) baclofen 5 mg tablet 5 mg PO TID spastic movements 04/25/25 04/25/25 History Laboratory Tests 04/25/25 04/26/25 04/26/25 19:32 01:31 06:01 WBC 6.0 K/mm3 (4.5-10.0) RBC 3.48 L M/mm3 (4.6-6.20) Hgb 10.5 L g/dL 10.3 L g/dL 9.7 L g/dL (14.0-18.0) (14.0-18.0) (14.0-18.0) Hct 32.8 L % 32.4 L % 30.9 L % (42.0-52.0) (42.0-52.0) (42.0-52.0) MCV 93.1 fl (80-100) MCH 29.6 pg (26-34) MCHC 31.8 L g/dl (32-36) RDW 16.2 H % (11.5-14.5) Plt Count 227 k/mm3 (150-375) MPV 11.0 H fl (7.4-10.4) Immature Gran % (Auto) 0.7 H % (0-0.5) Neut % (Auto) 52.9 % (45.5-73.1) Lymph % (Auto) 35.4 % (18.3-44.2) [place] % (Auto) 8.0 % (2.6-8.5) Eos % (Auto) 1.8 % (0-4.4) Baso % (Auto) 1.2 % (0.2-1.2) Lymph # (Auto) 2.13 K/mm3 (0.9-3.2) [place] # (Auto) 0.5 K/mm3 (0.1-0.6) Eos # (Auto) 0.1 K/mm3 (0-0.3) Baso # (Auto) 0.1 K/mm3 (0.0-0.1) Abs Immat Gran (auto) 0.04 H K/mm3 (0.00-0.031) Absolute Neuts (auto) 3.2 K/mm3 (1.3-6.7) Absolute Nucleated RBC 0.000 K/mm3 (0.0-0.012) Nucleated RBC % 0.0 % (0.0-0.2) PT 14.1 Seconds (11.1-14.7) INR 1.1 Sodium 139 mmol/L (137-145) Potassium 3.9 mmol/L (3.4-5.0) Chloride 106 mmol/L (98-107) Carbon Dioxide 23 mmol/L (22-30) Anion Gap 10 mmol/L (4-12) BUN 22 H mg/dL (9-20) Creatinine 0.71 mg/dL (0.7-1.3) Estim Creat Clear Calc 109 ml/min Estimated GFR > 60 (59 - ) Glucose 95 mg/dL (65-110) Calcium 9.1 mg/dL (8.4-10.2) Magnesium 2.0 mg/dL (1.6-2.3) Total Bilirubin 0.4 mg/dL (0.2-1.3) AST 40 U/L (17-59) ALT 50 U/L (6-50) Alkaline Phosphatase 78 U/L (38-126) Total Protein 6.9 g/dL (6.3-8.2) Albumin 3.8 g/dL (3.5-5.1) Urine Color Urine Appearance Urine pH Ur Specific [place] Urine Protein Urine Glucose (UA) Urine Ketones Ur Blood (Man) Urine Nitrate Urine Bilirubin Urine Urobilinogen Leukocyte Esterase Rfl Urine RBC Urine WBC Ur Squamous Epith Cells Urine Bacteria Urine Casts 04/26/25 06:04 WBC RBC Hgb Hct MCV MCH MCHC RDW Plt Count MPV Immature Gran % (Auto) Neut % (Auto) Lymph % (Auto) [place] % (Auto) Eos % (Auto) Baso % (Auto) Lymph # (Auto) [place] # (Auto) Eos # (Auto) Baso # (Auto) Abs Immat Gran (auto) Absolute Neuts (auto) Absolute Nucleated RBC Nucleated RBC % PT INR Sodium Potassium Chloride Carbon Dioxide Anion Gap BUN Creatinine Estim Creat Clear Calc Estimated GFR Glucose Calcium Magnesium Total Bilirubin AST ALT Alkaline Phosphatase Total Protein Albumin Urine Color Yellow (Yellow) Urine Appearance Clear (Clear) Urine pH 5.0 (5.0-9.0) Ur Specific [place] 1.029 (1.001-1.035) Urine Protein Negative mg/dL (Negative) Urine Glucose (UA) Negative mg/dL (Negative) Urine Ketones Trace H mg/dL (Negative) Ur Blood (Man) Negative (Negative) Urine Nitrate Negative (Negative) Urine Bilirubin Negative (Negative) Urine Urobilinogen 1.0 mg/dL (<2.0) Leukocyte Esterase Rfl 2+ H [place]/UL (Negative) Urine RBC 0-2 /hpf (0-2) Urine WBC 21-50 H /hpf (0-3) Ur Squamous Epith Cells None seen /hpf (Few) Urine Bacteria Rare /hpf Urine Casts 0-2 Patient hx anesthesia problems: none Family hx anesthesia problems: none Results Review: All pre-operative results and documents have been reviewed as part of the pre- operative evaluation. [facility] Past Medical History Medical History (Updated 04/25/25 @ 08:43 by Avni Sampson MD) Chronic alcoholic liver disease Rectal bleeding Peripheral neuropathy Alcohol withdrawal syndrome Neuropathy Chronic hyponatremia Hepatic steatosis Noted on CT scan 06/2022 Tobacco abuse Hypertension Asthma Anxiety Surgical History Surgical History H/O knee surgery H/O spinal fusion Social History Social History Social History: The patient lives with his significant other. He has 2 daughters. He has smoked 1 pack per day since he was a teenager. He has a history of heavy alcohol use drinking up to 1 5th of vodka every other day with recent decrease in alcohol consumption down to 2-3 beers a day on weekdays and 10 beers a day on weekends. 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 The patient smokes marijuana nightly. Code status: Full code Smoking packs per day: 1 Smoking cigarettes per day: 20.0 Years smoked: 30 Smoking pack-years: 30.00 Smoking status: Current every day smoker Alcohol intake: current Drinks per week: 20 Alcohol use details: social Substance use: current Substance use type: marijuana Last use: 03/29/2025 Do You Feel Safe in your Home?: Yes Lack of Transportation: No Lack of Food: Never True Current Housing: I Have Housing Concerned About Future Housing: No Difficulty Paying Gas/Electric Bills: No Difficulty Paying for Meds: No Currently Unemployed: No Education: Associate Degree Difficulty w/ Childcare or Family Care: No Living arrangements: with family Gender identity (if verbalized by the patient): Male Spiritual care concerns: No Anes - Eval Final PreProcedure Day of Procedure 04/26/25 14:11 Patient weight: normal Heart: regular rate and rhythm Lungs: clear to auscultation and normal air movement Airway: Mallampati scale class II Neurological: alert and oriented Last oral intake: >/= 8 hours ASA classification: IV Emergent: no Anesthetic plan: proceed Anesthesia type and monitoring: general GIVS and standard monitoring Results Review: All pre-operative results and documents have been reviewed as part of the pre-operative evaluation. Informed Consent: The patient's anesthetic plan and its attendant risks and benefits were discussed with the patient/family/POA. Questions were solicited and answers provided to the satisfaction of the patient/family/POA.
[2025-04-26] MEDS: LACTATED RINGERS 1,000 ML 150 ML IV CONT (14:19)
[2025-04-26] MEDS: SIMETHICONE ORAL SUSPENSION 20 MG/0.3 ML 30 ML BOTTLE 1.8 ML PO (14:20)
[2025-04-26] MEDS: ACETAMINOPHEN 325 MG TABLET 650 MG PO (18:25)
--- NOTE | 2025-04-26 19:07 | PC.NURSE ---
On 04/26/25, the Graduate Nurse, Bertha, provided care and completed [employer] documentation on this patient. I have reviewed the Graduate Nurse's documentation and agree with the findings.
[2025-04-26] MEDS: LIDOCAINE 5% PATCH 1 PATCH TRANSDERM (20:42)
[2025-04-27] VITALS (16 sets, daily range): BP systolic 86–129; BP diastolic 58–91; PULSE 89–114; RESP 12–24; TEMP 36–36.5; O2SAT 98–100
[2025-04-27] MEDS: ACETAMINOPHEN 325 MG TABLET 650 MG PO ×2 (02:14→09:25)
[2025-04-27] MEDS: HYDROcodone/acetaminophen (*CRX) 5-325 MG TABLET 1 TAB PO ×2 (04:49→20:39)
[2025-04-27] MEDS: SODIUM CHLORIDE 0.9% IV 1,000 ML 125 ML IV CONT ×2 (04:49→20:42)
[2025-04-27] MEDS: BACLOFEN 10 MG TABLET PO ×3 (06:49→21:53)
[2025-04-27] MEDS: LEVOTHYROXINE SODIUM 50 MCG TABLET PO (06:49)
[2025-04-27 08:19] LABS: Hematocrit 28.1 % (42.0-52.0); Hemoglobin 9.1 g/dL (14.0-18.0); Immature Granulocyte Percent A 0.4 % (0-0.5); Lymphocytes Absolute Auto 1.10 K/mm3 (0.9-3.2); Mean Corpuscular HGB Conc 32.4 g/dl (32-36); Mean Corpuscular Hemoglobin 30.3 pg (26-34); Mean Corpuscular Volume 93.7 fl (80-100); Nucleated Red Blood Cells Absolute Auto 0.000 K/mm3 (0.0-0.012); Nucleated Red Blood Cells Perc 0.0 % (0.0-0.2); Platelet Count Result 207 k/mm3 (150-375); Red Blood Count 3.00 M/mm3 (4.6-6.20); White Blood Count 5.3 K/mm3 (4.5-10.0)
[2025-04-27 09:01] LABS: Alanine Aminotransferase 37 U/L (6-50); Albumin Level 3.4 g/dL (3.5-5.1); Alkaline Phosphatase 60 U/L (38-126); Anion Gap 8 mmol/L (4-12); Aspartate Amino Transferase 34 U/L (17-59); Bilirubin,Total 0.3 mg/dL (0.2-1.3); Blood Urea Nitrogen 8 mg/dL (9-20); Calcium 9.5 mg/dL (8.4-10.2); Carbon Dioxide 23 mmol/L (22-30); Chloride 109 mmol/L (98-107); Estimated CRCL calculation 119 ml/min; Estimated Glomerular Filt Rate > 60; Glucose 136 mg/dL (65-110); Magnesium 1.9 mg/dL (1.6-2.3); Potassium 3.5 mmol/L (3.4-5.0); Sodium 140 mmol/L (137-145); Total Protein 6.3 g/dL (6.3-8.2)
[2025-04-27] MEDS: THIAMINE HCL 100 MG TABLET PO (09:23)
[2025-04-27] MEDS: CITALOPRAM HYDROBROMIDE 10 MG TABLET PO (09:23)
[2025-04-27] MEDS: PREGABALIN (*CRX) 75 MG CAPSULE 150 MG PO ×2 (09:23→17:45)
[2025-04-27] MEDS: MULTIVITAMINS THERAPEUTIC TAB (*BKC) 1 TABLET PO (09:23)
[2025-04-27] MEDS: FOLIC ACID 1 MG TABLET PO (09:23)
--- NOTE | 2025-04-27 10:45 | P.PNIM_ITS ---
Progress Note: A&P Assessment and Plan (1) GI bleed: Code(s): K92.2 - Gastrointestinal hemorrhage, unspecified Status: Acute Assessment and Plan: * Clear liquids. * No stools since arrived. * GI consulted, appreciate recommendations. * Pantoprazole 40 mg IVP q12. * Serial CBC. Current H&H 9.12/01.. * EGD on 04/26- negative. * NPO for Colonoscopy today showed: A single superficial stellate 8 mm ulcer was visualized in the rectum at approximately 5 cm above the anal margin. The ulcer had a visible vessel present. The ulcer had a large blood clot present which was removed with a cold snare. The ulcer was actively bleeding (arterial spurting). The lesion was cauterized with BICAP. The cauterization was successful. Two Resolution Clip clip were placed successfully for hemostasis. * NS@ 125 ml/hr. (2) Chronic alcoholic liver disease: Code(s): K70.9 - Alcoholic liver disease, unspecified Status: Acute Assessment and Plan: * CIWA monitoring. * Encourage to abstain from alcohol. * AST 52>40>34,ALT 65>50>37, alkaline phosphatase 96>78>60. (3) Anemia: Code(s): D64.9 - Anemia, unspecified Status: Acute Assessment and Plan: * H&H 9.12/01.. * Monitor serial CBC's. * Monitor for signs of bleeding. (4) Generalized weakness: Code(s): R53.1 - Weakness Status: Acute Assessment and Plan: * Restart PT/OT once there is no further bleeding. (5) Peripheral neuropathy: Code(s): G62.9 - Polyneuropathy, unspecified Status: Acute Assessment and Plan: * Thiamine 100 mg PO daily. * Lyrica 150 mg PO TID. (6) Muscle spasm: Code(s): M62.838 - Other muscle spasm Status: Acute Assessment and Plan: * Increase Baclofen 10 mg PO TID. (7) Severe protein-calorie malnutrition: Code(s): E43 - Unspecified severe protein-calorie malnutrition Status: Acute Assessment and Plan: * Patient was just discharged 04/21, associate trainer team followed during long stay for appetite. Patient was not eating solid food, mostly only drinking Ensure. * Add Ensure TID. * Meets criteria for severe malnutrition. Lost 20 lbs during recent hospitalization. Subjective Date/time seen: 04/27/25 10:45 Interval history: Patient reports pain in legs is a 8, constant throbbing, pins, and needles. Patient denies chest pain, palpitations, headache, dizziness, nausea, or vomiting. NPO for Colonoscopy today. Review of Systems Review of Systems: All systems reviewed & are unremarkable except as noted in HPI and below Exam Const: General: no acute distress and uncomfortable Resp: Effort & Inspection: normal respiratory effort Auscultation: clear to auscultation bilaterally Cardio: Rate: regular rate Rhythm: regular rhythm Other: Telemetry- SR 99. GI: GI Palp: Yes Soft to palpation Auscultation: normal bowel sounds Neuro: Speech: normal speech Extrem: General: no pedal edema Psych: Mental Status: mental status grossly normal Affect: normal affect Objective Data Vital Signs Vital Signs: Vital Signs - 24 hr 04/26/25 14:00 04/26/25 15:06 04/26/25 16:15 Temperature 98.0 F Pulse Rate 92 89 93 Respiratory Rate 18 19 Blood Pressure 119/75 125/87 114/76 Pulse Oximetry 100 97 Oxygen Delivery Room Air Room Air Fraction of Inspired Oxygen 04/26/25 16:20 04/26/25 16:30 04/26/25 16:40 Temperature 97.8 F 97.7 F 97.3 F L Pulse Rate 89 94 95 Respiratory Rate 18 22 H 20 Blood Pressure 116/84 126/89 121/85 Pulse Oximetry 98 100 98 Oxygen Delivery Room Air Room Air Room Air Fraction of Inspired Oxygen 04/26/25 16:50 04/26/25 18:36 04/26/25 20:00 Temperature 97.5 F L 97.4 F L Pulse Rate 98 88 Respiratory Rate 30 H 14 Blood Pressure 124/81 124/84 Pulse Oximetry 99 99 Oxygen Delivery Room Air Room Air Fraction of Inspired Oxygen 04/26/25 20:00 04/26/25 21:26 04/26/25 21:37 Temperature 97.4 F L Pulse Rate 101 H 103 H 96 Respiratory Rate 20 20 Blood Pressure 128/76 Pulse Oximetry 98 98 Oxygen Delivery Room Air Fraction of Inspired Oxygen 04/27/25 00:00 04/27/25 04:00 04/27/25 05:51 Temperature 97.3 F L Pulse Rate 89 90 90 Respiratory Rate 20 Blood Pressure 129/91 H Pulse Oximetry 98 Oxygen Delivery Fraction of Inspired Oxygen Intake/Output Intake/Output: Intake & Output 04/24/25 04/25/25 04/26/25 04/27/25 23:59 23:59 23:59 23:59 Intake Total 2750 3572.9 0 Output Total 650 2250 1100 Balance 2100 1322.9 -1100 Meds/Results Medications: Active Medications Generic Name Dose Route Start Last Admin Trade Name Freq PRN Reason Stop Dose Admin Acetaminophen 650 mg 04/25/25 09:18 04/27/25 09:25 Acetaminophen 325 Mg Tablet PO 650 mg Q6H PRN Administration Mild Pain (1-3) or Fever Hydrocodone Bitart/Acetaminophen 1 tab 04/25/25 09:49 04/27/25 04:49 Hydrocodone/Acetaminophen (*Crx) 5-325 Mg Tablet PO 1 tab Q8H PRN Administration pain 4-6 Albuterol 1 puff 04/25/25 09:31 Albuterol Sulfate (*Sp) Aerosol 1 Puff INHALATION TIDRT PRN Shortness Of Breath Artificial Tears 1 drop 04/25/25 09:16 Artificial Tears Ophth Soln 15 Ml Bottle EACH EYE QID PRN Dry Eye(S) Baclofen 10 mg 04/26/25 13:00 04/27/25 06:49 Baclofen 10 Mg Tablet PO 10 mg Q8HR BRYON Administration Citalopram Hydrobromide 10 mg 04/25/25 09:30 04/27/25 09:23 Citalopram Hydrobromide 10 Mg Tablet PO 10 mg QAM BRYON Administration Duloxetine HCl 30 mg 04/25/25 09:30 04/27/25 09:23 Duloxetine Hcl 30 Mg Capsule.Dr PO 30 mg Q12HR BRYON Administration Folic Acid 1 mg 04/25/25 09:30 04/27/25 09:23 Folic Acid 1 Mg Tablet PO 1 mg DAILY BRYON Administration Sodium Chloride 1,000 mls @ 125 mls/hr 04/25/25 07:05 04/27/25 04:49 Normal Saline Iv IV CONT 125 mls/hr .Q8H BRYON Administration Levothyroxine Sodium 50 mcg 04/25/25 09:30 04/27/25 06:49 Levothyroxine Sodium 50 Mcg Tablet PO 50 mcg DAILY@0630 BRYON Administration Lidocaine 1 patch 04/25/25 21:00 04/26/25 20:42 Lidocaine 5% Patch TRANSDERM 1 patch HS BRYON Administration Lisinopril 20 mg 04/25/25 09:30 04/27/25 09:23 Lisinopril 20 Mg Tablet PO 20 mg DAILY BRYON Administration Multivitamins Therapeutic 1 tablet 04/25/25 09:30 04/27/25 09:23 Multivitamins Therapeutic Tab (*Bkc) PO 1 tablet DAILY BRYON Administration Pregabalin 150 mg 04/25/25 09:30 04/27/25 09:23 Pregabalin (*Crx) 75 Mg Capsule PO 150 mg TID BRYON Administration Prochlorperazine Edisylate 10 mg 04/25/25 09:18 Prochlorperazine Edisylate 10 Mg/2 Ml Vial IV PUSH Q6H PRN Nausea And Vomiting Simethicone 1.8 ml 04/26/25 14:19 04/26/25 14:20 Simethicone Oral Suspension 20 Mg/0.3 Ml 30 Ml Bottle PO 1.8 ml ONCE PRN Administration Gas Discomfort Thiamine HCl 100 mg 04/25/25 09:00 04/27/25 09:23 Thiamine Hcl 100 Mg Tablet PO 100 mg QAM BRYON Administration Radiology Results: ITS Impressions Abdomen/Pelvis CTA 04/25/25 06:27 Impression: No significant abnormalities seen. Labs Labs: Laboratory Results - last 24 hr 04/27/25 07:31 WBC 5.3 RBC 3.00 L Hgb 9.1 L Hct 28.1 L MCV 93.7 MCH 30.3 MCHC 32.4 RDW 15.9 H Plt Count 207 MPV 11.5 H Immature Gran % (Auto) 0.4 Neut % (Auto) 70.0 Lymph % (Auto) 20.7 [place] % (Auto) 7.5 Eos % (Auto) 0.8 Baso % (Auto) 0.6 Lymph # (Auto) 1.10 [place] # (Auto) 0.4 Eos # (Auto) 0.0 Baso # (Auto) 0.0 Abs Immat Gran (auto) 0.02 Absolute Neuts (auto) 3.7 Absolute Nucleated RBC 0.000 Nucleated RBC % 0.0 Sodium 140 Potassium 3.5 Chloride 109 H Carbon Dioxide 23 Anion Gap 8 BUN 8 L D Creatinine 0.64 L Estim Creat Clear Calc 119 Estimated GFR > 60 Glucose 136 H Calcium 9.5 Magnesium 1.9 Total Bilirubin 0.3 AST 34 ALT 37 Alkaline Phosphatase 60 Total Protein 6.3 Albumin 3.4 L Quality VTE Prophylaxis VTE prophylaxis: mechanical ordered
--- NOTE | 2025-04-27 13:57 | WPDANESEPPF ---
Anes - Initial Pre Proc Eval Procedure: Operation Date: 04/27/25 15:00 Proposed Procedures p Diagnostic Colonoscopy - Denis Rausch MD Date/Time: 04/27/25 13:57 Surgeon: Daina Galicia DO Pre Op Diagnosis: GI Bleed Patient Data Age: 49 Gender: M Height: 1.75 m Weight: 76.9 kg Last Vital Signs Temp 36.3 C L 04/27/25 05:51 Pulse 92 04/27/25 08:03 Resp 20 04/27/25 05:51 BP 129/91 H 04/27/25 05:51 Pulse Ox 98 04/27/25 05:51 O2 Del Method Room Air 04/27/25 08:03 FiO2 21 04/26/25 21:26 Allergies Allergy/AdvReac Type Severity Reaction Status Date / Time tramadol AdvReac Intermediate Agitated Verified 04/27/25 13:55 Home Medications ?Medication ?Instructions ?Recorded ?Confirmed ?Type albuterol 90 mcg/actuation aerosol 90 mcg inhalation TID PRN 06/12/22 04/25/25 History inhaler Shortness Of Breath lisinopril 20 mg tablet 20 mg PO DAILY 07/23/24 04/25/25 History omeprazole 20 mg tablet,delayed 20 mg PO DAILY #60 tabs 09/21/24 04/25/25 Rx release hydrocodone 5 mg-acetaminophen 325 1 tablet PO Q8H PRN pain #7 tabs 02/22/25 04/25/25 Rx mg tablet methocarbamol 750 mg tablet 750 mg PO TID PRN muscle spasm #14 02/22/25 04/25/25 Rx tabs folic acid 1 mg tablet 1 mg PO DAILY 03/30/25 04/25/25 History levothyroxine 50 mcg tablet 50 mcg PO DAILY 03/30/25 04/25/25 History bisacodyl 5 mg tablet,delayed 5 mg PO QAM 30 days #30 tabs 04/21/25 04/25/25 Rx release (Laxative (bisacodyl)) citalopram 20 mg tablet (Celexa) 10 mg (1/2 x 20 mg) PO QAM 30 days 04/21/25 04/25/25 Rx #15 tabs duloxetine 30 mg capsule,delayed 30 mg PO Q12HR 30 days #60 caps 04/21/25 04/25/25 Rx release (Cymbalta) multivitamin 1 tablet PO DAILY #30 tabs 04/21/25 04/25/25 Rx peg [id number] 1 1 drp EACH EYE QID PRN Dry Eye(S) 04/21/25 04/25/25 Rx %-0.2 %-0.2 % eye drops 30 days #15 mL (Artificial Tears ([id number])) pregabalin 75 mg capsule (Lyrica) 150 mg (2 x 75 mg) PO TID 30 days 04/21/25 04/25/25 Rx #180 caps thiamine HCl (vitamin B1) 100 mg 100 mg PO QAM 30 days #30 tabs 04/21/25 04/25/25 Rx tablet (Vitamin B-1) baclofen 5 mg tablet 5 mg PO TID spastic movements 04/25/25 04/25/25 History Laboratory Tests 04/27/25 07:31 WBC 5.3 K/mm3 (4.5-10.0) RBC 3.00 L M/mm3 (4.6-6.20) Hgb 9.1 L g/dL (14.0-18.0) Hct 28.1 L % (42.0-52.0) MCV 93.7 fl (80-100) MCH 30.3 pg (26-34) MCHC 32.4 g/dl (32-36) RDW 15.9 H % (11.5-14.5) Plt Count 207 k/mm3 (150-375) MPV 11.5 H fl (7.4-10.4) Immature Gran % (Auto) 0.4 % (0-0.5) Neut % (Auto) 70.0 % (45.5-73.1) Lymph % (Auto) 20.7 % (18.3-44.2) [place] % (Auto) 7.5 % (2.6-8.5) Eos % (Auto) 0.8 % (0-4.4) Baso % (Auto) 0.6 % (0.2-1.2) Lymph # (Auto) 1.10 K/mm3 (0.9-3.2) [place] # (Auto) 0.4 K/mm3 (0.1-0.6) Eos # (Auto) 0.0 K/mm3 (0-0.3) Baso # (Auto) 0.0 K/mm3 (0.0-0.1) Abs Immat Gran (auto) 0.02 K/mm3 (0.00-0.031) Absolute Neuts (auto) 3.7 K/mm3 (1.3-6.7) Absolute Nucleated RBC 0.000 K/mm3 (0.0-0.012) Nucleated RBC % 0.0 % (0.0-0.2) Sodium 140 mmol/L (137-145) Potassium 3.5 mmol/L (3.4-5.0) Chloride 109 H mmol/L (98-107) Carbon Dioxide 23 mmol/L (22-30) Anion Gap 8 mmol/L (4-12) BUN 8 L D mg/dL (9-20) Creatinine 0.64 L mg/dL (0.7-1.3) Estim Creat Clear Calc 119 ml/min Estimated GFR > 60 (59 - ) Glucose 136 H mg/dL (65-110) Calcium 9.5 mg/dL (8.4-10.2) Magnesium 1.9 mg/dL (1.6-2.3) Total Bilirubin 0.3 mg/dL (0.2-1.3) AST 34 U/L (17-59) ALT 37 U/L (6-50) Alkaline Phosphatase 60 U/L (38-126) Total Protein 6.3 g/dL (6.3-8.2) Albumin 3.4 L g/dL (3.5-5.1) Patient hx anesthesia problems: none Family hx anesthesia problems: none Results Review: All pre-operative results and documents have been reviewed as part of the pre-operative evaluation. [facility] Past Medical History Medical History (Updated 04/26/25 @ 16:00 by Linda Rodríguez APRN) Chronic alcoholic liver disease Rectal bleeding Peripheral neuropathy Alcohol withdrawal syndrome Neuropathy Chronic hyponatremia Hepatic steatosis Noted on CT scan 06/2022 Tobacco abuse Hypertension Asthma Anxiety Surgical History Surgical History H/O knee surgery H/O spinal fusion Social History Social History Social History: The patient lives with his significant other. He has 2 daughters. He has smoked 1 pack per day since he was a teenager. He has a history of heavy alcohol use drinking up to 1 5th of vodka every other day with recent decrease in alcohol consumption down to 2-3 beers a day on weekdays and 10 beers a day on weekends. 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 The patient smokes marijuana nightly. Code status: Full code Smoking packs per day: 1 Smoking cigarettes per day: 20.0 Years smoked: 30 Smoking pack-years: 30.00 Smoking status: Current every day smoker Alcohol intake: current Drinks per week: 20 Alcohol use details: social Substance use: current Substance use type: marijuana Last use: 03/29/2025 Do You Feel Safe in your Home?: Yes Lack of Transportation: No Lack of Food: Never True Current Housing: I Have Housing Concerned About Future Housing: No Difficulty Paying Gas/Electric Bills: No Difficulty Paying for Meds: No Currently Unemployed: No Education: Associate Degree Difficulty w/ Childcare or Family Care: No Living arrangements: with family Gender identity (if verbalized by the patient): Male Spiritual care concerns: No Anes - Eval Final PreProcedure Day of Procedure 04/27/25 13:57 Patient weight: normal Heart: regular rate and rhythm Lungs: clear to auscultation and normal air movement Airway: Mallampati scale class II Neurological: alert and oriented Last oral intake: >/= 8 hours ASA classification: IV Emergent: no Anesthetic plan: proceed Anesthesia type and monitoring: general GIVS and standard monitoring Results Review: All pre-operative results and documents have been reviewed as part of the pre-operative evaluation. Informed Consent: The patient's anesthetic plan and its attendant risks and benefits were discussed with the patient/family/POA. Questions were solicited and answers provided to the satisfaction of the patient/family/POA.
[2025-04-27] MEDS: LACTATED RINGERS 1,000 ML 150 ML IV CONT (14:07)
--- NOTE | 2025-04-27 14:13 | WPDANESPN ---
Anes - Prog Note Post-Op Date/Time: 04/27/25 14:13 Cardiovascular status: normal Respiratory status: normal Airway patency: baseline Mental status: baseline Post-Op hydration status: normal Vital Signs: Last Vital Signs Temp 97.6 F 04/27/25 13:46 Pulse 114 H 04/27/25 13:46 Resp 18 04/27/25 13:46 BP 98/75 L 04/27/25 13:46 Pulse Ox 100 04/27/25 13:46 O2 Del Method Room Air 04/27/25 13:46 FiO2 21 04/26/25 21:26 Pain Score (VAS): 0/10 I/O: Intake & Output 04/26/25 04/27/25 04/27/25 23:59 07:59 15:59 Intake Total 1700 0 Output Total 1800 1100 425 Balance -100 -1100 -425 Laboratory Tests 04/27/25 07:31 04/27/25 07:31 04/27/25 07:31 WBC 5.3 RBC 3.00 L Hgb 9.1 L Hct 28.1 L MCV 93.7 MCH 30.3 MCHC 32.4 RDW 15.9 H Plt Count 207 MPV 11.5 H Immature Gran % (Auto) 0.4 Neut % (Auto) 70.0 Lymph % (Auto) 20.7 [place] % (Auto) 7.5 Eos % (Auto) 0.8 Baso % (Auto) 0.6 Lymph # (Auto) 1.10 [place] # (Auto) 0.4 Eos # (Auto) 0.0 Baso # (Auto) 0.0 Abs Immat Gran (auto) 0.02 Absolute Neuts (auto) 3.7 Absolute Nucleated RBC 0.000 Nucleated RBC % 0.0 Sodium 140 Potassium 3.5 Chloride 109 H Carbon Dioxide 23 Anion Gap 8 BUN 8 L D Creatinine 0.64 L Estim Creat Clear Calc 119 Estimated GFR > 60 Glucose 136 H Calcium 9.5 Magnesium 1.9 Total Bilirubin 0.3 AST 34 ALT 37 Alkaline Phosphatase 60 Total Protein 6.3 Albumin 3.4 L Post-procedural complaints: none Patient Feedback: Patient satisfied with anesthetic care.
--- NOTE | 2025-04-27 15:32 | WPDGIPROGNO ---
Progress Note: A&P Assessment and Plan (1) Rectal ulcer: Code(s): K62.6 - Ulcer of anus and rectum Status: Acute Assessment and Plan: See colonoscopy report. Hemostasis of bleeding rectal ulcer achieved. Patient may have clear liquids tonight, and if H/J stable tomorrow am, can be discharged home. Subjective Date/time seen: 04/27/25 15:32 Objective Data Vital Signs Vital Signs: Vital Signs - 24 hr 04/26/25 16:15 04/26/25 16:20 04/26/25 16:30 Temperature 97.8 F 97.7 F Pulse Rate 93 89 94 Respiratory Rate 19 18 22 H Blood Pressure 114/76 116/84 126/89 Pulse Oximetry 97 98 100 Oxygen Delivery Room Air Room Air Room Air Fraction of Inspired Oxygen 04/26/25 16:40 04/26/25 16:50 04/26/25 18:36 Temperature 97.3 F L 97.5 F L 97.4 F L Pulse Rate 95 98 88 Respiratory Rate 20 30 H 14 Blood Pressure 121/85 124/81 124/84 Pulse Oximetry 98 99 99 Oxygen Delivery Room Air Room Air Fraction of Inspired Oxygen 04/26/25 20:00 04/26/25 20:00 04/26/25 21:26 Temperature Pulse Rate 101 H 103 H Respiratory Rate 20 Blood Pressure Pulse Oximetry 98 Oxygen Delivery Room Air Room Air Fraction of Inspired Oxygen 21 04/26/25 21:37 04/27/25 00:00 04/27/25 04:00 Temperature 97.4 F L Pulse Rate 96 89 90 Respiratory Rate 20 Blood Pressure 128/76 Pulse Oximetry 98 Oxygen Delivery Fraction of Inspired Oxygen 04/27/25 05:51 04/27/25 08:03 04/27/25 08:03 Temperature 97.3 F L Pulse Rate 90 92 Respiratory Rate 20 Blood Pressure 129/91 H Pulse Oximetry 98 Oxygen Delivery Room Air Fraction of Inspired Oxygen 04/27/25 13:46 Temperature 97.6 F Pulse Rate 114 H Respiratory Rate 18 Blood Pressure 98/75 L Pulse Oximetry 100 Oxygen Delivery Room Air Fraction of Inspired Oxygen Intake/Output Intake/Output: Intake & Output 04/24/25 04/25/25 04/26/25 04/27/25 23:59 23:59 23:59 23:59 Intake Total 2750 3572.9 0 Output Total 650 2250 1925 Balance 2100 1322.9 -7197 Meds/Results Medications: Active Medications Generic Name Dose Route Start Last Admin Trade Name Freq PRN Reason Stop Dose Admin Acetaminophen 650 mg 04/25/25 09:18 04/27/25 09:25 Acetaminophen 325 Mg Tablet PO 650 mg Q6H PRN Administration Mild Pain (1-3) or Fever Hydrocodone Bitart/Acetaminophen 1 tab 04/25/25 09:49 04/27/25 04:49 Hydrocodone/Acetaminophen (*Crx) 5-325 Mg Tablet PO 1 tab Q8H PRN Administration pain 4-6 Albuterol 1 puff 04/25/25 09:31 Albuterol Sulfate (*Sp) Aerosol 1 Puff INHALATION TIDRT PRN Shortness Of Breath Artificial Tears 1 drop 04/25/25 09:16 Artificial Tears Ophth Soln 15 Ml Bottle EACH EYE QID PRN Dry Eye(S) Baclofen 10 mg 04/26/25 13:00 04/27/25 06:49 Baclofen 10 Mg Tablet PO 10 mg Q8HR BRYON Administration Citalopram Hydrobromide 10 mg 04/25/25 09:30 04/27/25 09:23 Citalopram Hydrobromide 10 Mg Tablet PO 10 mg QAM BRYON Administration Duloxetine HCl 30 mg 04/25/25 09:30 04/27/25 09:23 Duloxetine Hcl 30 Mg Capsule.Dr PO 30 mg Q12HR BRYON Administration Folic Acid 1 mg 04/25/25 09:30 04/27/25 09:23 Folic Acid 1 Mg Tablet PO 1 mg DAILY BRYON Administration Sodium Chloride 1,000 mls @ 125 mls/hr 04/25/25 07:05 04/27/25 04:49 Normal Saline Iv IV CONT 125 mls/hr .Q8H BRYON Administration Lactated Ringer's 1,000 mls @ 150 mls/hr 04/27/25 14:00 04/27/25 15:23 Lr - Lactated Ringers Iv IV CONT 150 mls/hr .Q6H40M BRYON Infusion Levothyroxine Sodium 50 mcg 04/25/25 09:30 04/27/25 06:49 Levothyroxine Sodium 50 Mcg Tablet PO 50 mcg DAILY@0630 BRYON Administration Lidocaine 1 patch 04/25/25 21:00 04/26/25 20:42 Lidocaine 5% Patch TRANSDERM 1 patch HS BRYON Administration Lisinopril 20 mg 04/25/25 09:30 04/27/25 09:23 Lisinopril 20 Mg Tablet PO 20 mg DAILY BRYON Administration Multivitamins Therapeutic 1 tablet 04/25/25 09:30 04/27/25 09:23 Multivitamins Therapeutic Tab (*Bkc) PO 1 tablet DAILY BRYON Administration Pregabalin 150 mg 04/25/25 09:30 04/27/25 09:23 Pregabalin (*Crx) 75 Mg Capsule PO 150 mg TID BRYON Administration Prochlorperazine Edisylate 10 mg 04/25/25 09:18 Prochlorperazine Edisylate 10 Mg/2 Ml Vial IV PUSH Q6H PRN Nausea And Vomiting Simethicone 1.8 ml 04/26/25 14:19 04/26/25 14:20 Simethicone Oral Suspension 20 Mg/0.3 Ml 30 Ml Bottle PO 1.8 ml ONCE PRN Administration Gas Discomfort Thiamine HCl 100 mg 04/25/25 09:00 04/27/25 09:23 Thiamine Hcl 100 Mg Tablet PO 100 mg QAM BRYON Administration Radiology Results: ITS Impressions Abdomen/Pelvis CTA 04/25/25 06:27 Impression: No significant abnormalities seen. Labs Labs: Laboratory Results - last 24 hr 04/27/25 07:31 WBC 5.3 RBC 3.00 L Hgb 9.1 L Hct 28.1 L MCV 93.7 MCH 30.3 MCHC 32.4 RDW 15.9 H Plt Count 207 MPV 11.5 H Immature Gran % (Auto) 0.4 Neut % (Auto) 70.0 Lymph % (Auto) 20.7 [place] % (Auto) 7.5 Eos % (Auto) 0.8 Baso % (Auto) 0.6 Lymph # (Auto) 1.10 [place] # (Auto) 0.4 Eos # (Auto) 0.0 Baso # (Auto) 0.0 Abs Immat Gran (auto) 0.02 Absolute Neuts (auto) 3.7 Absolute Nucleated RBC 0.000 Nucleated RBC % 0.0 Sodium 140 Potassium 3.5 Chloride 109 H Carbon Dioxide 23 Anion Gap 8 BUN 8 L D Creatinine 0.64 L Estim Creat Clear Calc 119 Estimated GFR > 60 Glucose 136 H Calcium 9.5 Magnesium 1.9 Total Bilirubin 0.3 AST 34 ALT 37 Alkaline Phosphatase 60 Total Protein 6.3 Albumin 3.4 L
[2025-04-28] VITALS (15 sets, daily range): BP systolic 90–117; BP diastolic 62–83; PULSE 82–103; RESP 12–19; TEMP 36–37.3; O2SAT 98–100
[2025-04-28] MEDS: VANCOMYCIN 1,500 MG/NS 500 ML 1,500 MG/500 ML BAG 250 MG IVPB (00:34)
[2025-04-28] MEDS: HYDROcodone/acetaminophen (*CRX) 5-325 MG TABLET 1 TAB PO ×3 (04:16→22:08)
[2025-04-28] MEDS: BACLOFEN 10 MG TABLET PO ×2 (05:16→13:27)
[2025-04-28] MEDS: LEVOTHYROXINE SODIUM 50 MCG TABLET PO (05:18)
[2025-04-28 06:40] LABS: Hematocrit 21.0 % (42.0-52.0); Immature Granulocyte Percent A 0.7 % (0-0.5); Lymphocytes Absolute Auto 1.86 K/mm3 (0.9-3.2); Mean Corpuscular HGB Conc 31.4 g/dl (32-36); Mean Corpuscular Hemoglobin 29.7 pg (26-34); Mean Corpuscular Volume 94.6 fl (80-100); Nucleated Red Blood Cells Absolute Auto 0.000 K/mm3 (0.0-0.012); Nucleated Red Blood Cells Perc 0.0 % (0.0-0.2); Platelet Count Result 179 k/mm3 (150-375); Red Blood Count 2.22 M/mm3 (4.6-6.20); White Blood Count 5.8 K/mm3 (4.5-10.0)
[2025-04-28 06:42] LABS: Hemoglobin 6.6 g/dL (14.0-18.0)
[2025-04-28 07:01] LABS: Estimated CRCL calculation 113 ml/min; Estimated Glomerular Filt Rate > 60; Magnesium 1.6 mg/dL (1.6-2.3)
--- NOTE | 2025-04-28 07:27 | PM.IMPN ---
Progress Note: A&P Assessment and Plan (1) GI bleed: Code(s): K92.2 - Gastrointestinal hemorrhage, unspecified Status: Acute Assessment and Plan: 04/26 EGD negative 04/27 Colonoscopy today showed: A single superficial stellate 8 mm ulcer was visualized in the rectum at approximately 5 cm above the anal margin. The ulcer had a visible vessel present. The ulcer had a large blood clot present which was removed with a cold snare. The ulcer was actively bleeding (arterial spurting). The lesion was cauterized with BICAP. The cauterization was successful. Two Resolution Clip clip were placed successfully for hemostasis. PLAN Small amount of BRBPR once when wiping overnight, but sounded minimal per nursing Clear liquids. GI consulted, appreciate recommendations. Pantoprazole 40 mg IVP q12. Serial CBC. Current H&H 12.4/37.3>9.1/28.1>6.6/21 NS@ 125 ml/hr>75/hr. (2) Chronic alcoholic liver disease: Code(s): K70.9 - Alcoholic liver disease, unspecified Status: Acute Assessment and Plan: CIWA monitoring. Encourage to abstain from alcohol. AST 52>40>34,ALT 65>50>37, alkaline phosphatase 96>78>60. (3) Anemia: Code(s): D64.9 - Anemia, unspecified Status: Acute Assessment and Plan: See GI bleeding as above Monitor serial CBC's & bleeding Transfuse for Hgb <7 if patient agreeable. Consent for blood (4) Generalized weakness: Code(s): R53.1 - Weakness Status: Acute Assessment and Plan: Restart PT/OT once there is no further bleeding. (5) Peripheral neuropathy: Code(s): G62.9 - Polyneuropathy, unspecified Status: Acute Assessment and Plan: Thiamine 100 mg PO daily. Lyrica 150 mg PO TID. (6) Muscle spasm: Code(s): M62.838 - Other muscle spasm Status: Acute Assessment and Plan: Increase Baclofen 10 mg PO TID. 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 Patient was not eating solid food, mostly only drinking Ensure. Add Ensure TID. Meets criteria for severe malnutrition. Lost 20 lbs during recent hospitalization. (8) UTI (urinary tract infection): Code(s): N39.0 - Urinary tract infection, site not specified Status: Acute Assessment and Plan: UA+ grew [place]. Started on Vancomycin but reporting throat swelling/tightness so added as a possible allergy. Symptom resolved without treatment and no hives/rash --Stopped Vanc, start nitrofurantoin 100 BID x5 days Time Spent With Patient Time: 55 minutes Subjective Date/time seen: 04/28/25 07:27 Interval history: Blood count down from 9.1>6.6. Diaphoretic this morning but says that's not uncommon. Not lightheaded or dizzy. VSS Reports that he felt throat tightness and tingling with antibiotic administration overnight. Was hesitant to get a unit of blood and only a small amount of blood when wiping overnight. No bleeding this morning on exam. Rechecking CBC prior to blood Review of Systems Review of Systems: All systems reviewed & are unremarkable except as noted in HPI and below Exam Narrative: General - Awake and alert. No acute distress Eyes - PERRLA, EOM intact ENT - No thrush, No erythema Neck - No noticeable or palpable swelling Lymph Nodes - No lymphadenopathy Cardiovascular - RRR no m/r/g, no JVD Lungs: Clear to auscultation, No wheezing, use of accessory muscles, no crackles Skin - Skin warm and dry, no wounds or rashes Abdomen - Normal bowel sounds, abdomen soft and nontender Extremities - No edema, cyanosis or clubbing Musculoskeletal - 2/5 strength, normal range of motion, no swollen or erythematous joints. Neurological ? Alert and oriented x 3, CN 2-12 grossly intact. Psych: Normal mood and affect Objective Data Vital Signs Vital Signs: Vital Signs - 24 hr 04/27/25 08:03 04/27/25 08:03 04/27/25 12:02 Temperature Pulse Rate 92 106 H Respiratory Rate Blood Pressure Pulse Oximetry Oxygen Delivery Room Air 04/27/25 13:46 04/27/25 15:00 04/27/25 15:26 Temperature 97.6 F 97.2 F L Pulse Rate 114 H 99 104 H Respiratory Rate 18 12 24 H Blood Pressure 98/75 L 101/76 86/58 L Pulse Oximetry 100 100 100 Oxygen Delivery Room Air Room Air 04/27/25 15:36 04/27/25 15:46 04/27/25 15:56 Temperature Pulse Rate 97 96 97 Respiratory Rate 16 15 15 Blood Pressure 100/58 L 106/78 110/78 Pulse Oximetry 100 100 100 Oxygen Delivery Room Air Room Air Room Air 04/27/25 20:00 04/27/25 20:25 04/27/25 22:10 Temperature 96.8 F L Pulse Rate 110 H 109 H Respiratory Rate 18 Blood Pressure 96/69 L Pulse Oximetry 100 Oxygen Delivery Room Air 04/28/25 00:00 04/28/25 04:00 04/28/25 05:22 Temperature 98.3 F Pulse Rate 103 H 88 82 Respiratory Rate 18 Blood Pressure 108/73 Pulse Oximetry 100 Oxygen Delivery Intake/Output Intake/Output: Intake & Output 04/25/25 04/26/25 04/27/25 04/28/25 23:59 23:59 23:59 23:59 Intake Total 2750 3572.9 1400 Output Total 650 2250 1925 650 Balance 2100 1322.9 -525 -650 Meds/Results Medications: Active Medications Generic Name Dose Route Start Last Admin Trade Name Freq PRN Reason Stop Dose Admin Acetaminophen 650 mg 04/25/25 09:18 04/27/25 09:25 Acetaminophen 325 Mg Tablet PO 650 mg Q6H PRN Administration Mild Pain (1-3) or Fever Hydrocodone Bitart/Acetaminophen 1 tab 04/25/25 09:49 04/28/25 04:16 Hydrocodone/Acetaminophen (*Crx) 5-325 Mg Tablet PO 1 tab Q8H PRN Administration pain 4-6 Albuterol 1 puff 04/25/25 09:31 Albuterol Sulfate (*Sp) Aerosol 1 Puff INHALATION TIDRT PRN Shortness Of Breath Artificial Tears 1 drop 04/25/25 09:16 Artificial Tears Ophth Soln 15 Ml Bottle EACH EYE QID PRN Dry Eye(S) Baclofen 10 mg 04/26/25 13:00 04/28/25 05:16 Baclofen 10 Mg Tablet PO 10 mg Q8HR BRYON Administration Citalopram Hydrobromide 10 mg 04/25/25 09:30 04/27/25 09:23 Citalopram Hydrobromide 10 Mg Tablet PO 10 mg QAM BRYON Administration Duloxetine HCl 30 mg 04/25/25 09:30 04/27/25 20:39 Duloxetine Hcl 30 Mg Capsule.Dr PO 30 mg Q12HR BRYON Administration Folic Acid 1 mg 04/25/25 09:30 04/27/25 09:23 Folic Acid 1 Mg Tablet PO 1 mg DAILY BRYNO Administration Sodium Chloride 1,000 mls @ 125 mls/hr 04/25/25 07:05 04/27/25 21:50 Normal Saline Iv IV CONT Not Given .Q8H BRYON Vancomycin HCl 1,500 mg in 500 mls @ 250 mls/hr 04/28/25 00:00 04/28/25 00:34 Vancomycin 1,500 Mg/Ns 500 Ml IVPB 250 mls/hr Q12H BRYON Administration Magnesium Sulfate 2 gm in 50 mls @ 25 mls/hr 04/28/25 07:26 Magnesium Sulf 2 Gm/Water 50ml IVPB 04/28/25 09:25 ONCE ONE Levothyroxine Sodium 50 mcg 04/25/25 09:30 04/28/25 05:18 Levothyroxine Sodium 50 Mcg Tablet PO 50 mcg DAILY@0630 [facility] Administration Lidocaine 1 patch 04/25/25 21:00 04/27/25 20:50 Lidocaine 5% Patch TRANSDERM Not Given HS [facility] Lisinopril 20 mg 04/25/25 09:30 04/27/25 09:23 Lisinopril 20 Mg Tablet PO 20 mg DAILY BRYON Administration Multivitamins Therapeutic 1 tablet 04/25/25 09:30 04/27/25 09:23 Multivitamins Therapeutic Tab (*Bkc) PO 1 tablet DAILY BRYON Administration Polysaccharide Iron Complex 150 mg 04/28/25 08:00 Polysaccharide Iron Complex 150 Mg Capsule PO DAILY@0800 [facility] Pregabalin 150 mg 04/25/25 09:30 04/27/25 17:45 Pregabalin (*Crx) 75 Mg Capsule PO 150 mg TID BRYON Administration Prochlorperazine Edisylate 10 mg 04/25/25 09:18 Prochlorperazine Edisylate 10 Mg/2 Ml Vial IV PUSH Q6H PRN Nausea And Vomiting Simethicone 1.8 ml 04/26/25 14:19 04/26/25 14:20 Simethicone Oral Suspension 20 Mg/0.3 Ml 30 Ml Bottle PO 1.8 ml ONCE PRN Administration Gas Discomfort Thiamine HCl 100 mg 04/25/25 09:00 04/27/25 09:23 Thiamine Hcl 100 Mg Tablet PO 100 mg QAM BRYON Administration Radiology Results: ITS Impressions Abdomen/Pelvis CTA 04/25/25 06:27 Impression: No significant abnormalities seen. Labs Labs: Laboratory Results - last 24 hr 04/27/25 04/28/25 07:31 06:14 WBC 5.3 5.8 RBC 3.00 L 2.22 L Hgb 9.1 L 6.6 L* Hct 28.1 L 21.0 L MCV 93.7 94.6 MCH 30.3 29.7 MCHC 32.4 31.4 L RDW 15.9 H 15.9 H Plt Count 207 179 MPV 11.5 H 11.4 H Immature Gran % (Auto) 0.4 0.7 H Neut % (Auto) 70.0 59.2 Lymph % (Auto) 20.7 32.2 [place] % (Auto) 7.5 6.2 Eos % (Auto) 0.8 1.0 Baso % (Auto) 0.6 0.7 Lymph # (Auto) 1.10 1.86 [place] # (Auto) 0.4 0.4 Eos # (Auto) 0.0 0.1 Baso # (Auto) 0.0 0.0 Abs Immat Gran (auto) 0.02 0.04 H Absolute Neuts (auto) 3.7 3.4 Absolute Nucleated RBC 0.000 0.000 Nucleated RBC % 0.0 0.0 Sodium 140 Potassium 3.5 Chloride 109 H Carbon Dioxide 23 Anion Gap 8 BUN 8 L D Creatinine 0.64 L 0.68 L Estim Creat Clear Calc 119 113 Estimated GFR > 60 > 60 Glucose 136 H Calcium 9.5 Magnesium 1.9 1.6 Total Bilirubin 0.3 AST 34 ALT 37 Alkaline Phosphatase 60 Total Protein 6.3 Albumin 3.4 L Quality VTE Prophylaxis VTE prophylaxis: mechanical ordered Hospitalist [facility] Advance Care Plan I have confirmed that the patient's Advanced Care Plan is present, code status is documented, or surrogate decision maker is listed in patient medical record.: Yes Medication Reconciliation I have utilized all available resources to obtain, update and review the patients current medications (includes all prescriptions, OTC, herbals, cannabis, and nutritional supplements).: Yes
[2025-04-28 08:16] LABS: Immature Granulocyte Percent A 0.4 % (0-0.5); Lymphocytes Absolute Auto 1.78 K/mm3 (0.9-3.2); Mean Corpuscular HGB Conc 31.8 g/dl (32-36); Mean Corpuscular Hemoglobin 30.0 pg (26-34); Mean Corpuscular Volume 94.2 fl (80-100); Nucleated Red Blood Cells Absolute Auto 0.000 K/mm3 (0.0-0.012); Nucleated Red Blood Cells Perc 0.0 % (0.0-0.2); Platelet Count Result 177 k/mm3 (150-375); Red Blood Count 2.07 M/mm3 (4.6-6.20); White Blood Count 5.7 K/mm3 (4.5-10.0)
[2025-04-28 08:18] LABS: Hematocrit 19.5 % (42.0-52.0); Hemoglobin 6.2 g/dL (14.0-18.0)
[2025-04-28 08:31] LABS: Anion Gap 7 mmol/L (4-12); Blood Urea Nitrogen 5 mg/dL (9-20); Calcium 8.8 mg/dL (8.4-10.2); Carbon Dioxide 23 mmol/L (22-30); Chloride 108 mmol/L (98-107); Estimated CRCL calculation 121 ml/min; Estimated Glomerular Filt Rate > 60; Glucose 138 mg/dL (65-110); Potassium 3.3 mmol/L (3.4-5.0); Sodium 138 mmol/L (137-145)
[2025-04-28] MEDS: MULTIVITAMINS THERAPEUTIC TAB (*BKC) 1 TABLET PO (08:58)
[2025-04-28] MEDS: CITALOPRAM HYDROBROMIDE 10 MG TABLET PO (08:58)
[2025-04-28] MEDS: NITROFURANTOIN MONOHYD MACROCR 100 MG CAP PO ×2 (08:58→22:07)
[2025-04-28] MEDS: THIAMINE HCL 100 MG TABLET PO (08:58)
[2025-04-28] MEDS: PREGABALIN (*CRX) 75 MG CAPSULE 150 MG PO ×3 (08:58→17:01)
[2025-04-28] MEDS: FOLIC ACID 1 MG TABLET PO (08:58)
[2025-04-28] MEDS: SODIUM CHLORIDE 0.9% IV 250 ML 30 ML IV CONT (08:58)
[2025-04-28] MEDS: SODIUM CHLORIDE 0.9% IV 1,000 ML 75 ML IV CONT (09:10)
[2025-04-28] MEDS: MAGNESIUM SULF 2 GM/WATER 50ML 2 GM/50 ML BAG IVPB (09:59)
--- NOTE | 2025-04-28 10:57 | WPDANESEPPF ---
Anes - Initial Pre Proc Eval Procedure: Operation Date: 04/26/25 14:45 Proposed Procedures p Esophagogastroduodenoscopy - Denis Rausch MD Operation Date: 04/27/25 15:00 Proposed Procedures p Diagnostic Colonoscopy - Denis Rausch MD Operation Date: 04/28/25 13:15 Proposed Procedures p Diagnostic Colonoscopy - Denis Rausch MD Date/Time: 04/28/25 10:57 Surgeon: Daina Galicia DO Pre Op Diagnosis: GI Bleed Patient Data Age: 49 Gender: M Height: 1.75 m Weight: 76.9 kg Last Vital Signs Temp 36.2 C L 04/28/25 10:10 Pulse 103 H 04/28/25 10:10 Resp 18 04/28/25 10:10 BP 100/74 04/28/25 10:10 Pulse Ox 98 04/28/25 10:10 O2 Del Method Room Air 04/27/25 20:00 FiO2 21 04/26/25 21:26 Allergies Allergy/AdvReac Type Severity Reaction Status Date / Time tramadol AdvReac Intermediate Agitated Verified 04/28/25 10:55 vancomycin AdvReac Unknown tingling Verified 04/28/25 10:55 Home Medications ?Medication ?Instructions ?Recorded ?Confirmed ?Type albuterol 90 mcg/actuation aerosol 90 mcg inhalation TID PRN 06/12/22 04/25/25 History inhaler Shortness Of Breath lisinopril 20 mg tablet 20 mg PO DAILY 07/23/24 04/25/25 History omeprazole 20 mg tablet,delayed 20 mg PO DAILY #60 tabs 09/21/24 04/25/25 Rx release hydrocodone 5 mg-acetaminophen 325 1 tablet PO Q8H PRN pain #7 tabs 02/22/25 04/25/25 Rx mg tablet methocarbamol 750 mg tablet 750 mg PO TID PRN muscle spasm #14 02/22/25 04/25/25 Rx tabs folic acid 1 mg tablet 1 mg PO DAILY 03/30/25 04/25/25 History levothyroxine 50 mcg tablet 50 mcg PO DAILY 03/30/25 04/25/25 History bisacodyl 5 mg tablet,delayed 5 mg PO QAM 30 days #30 tabs 04/21/25 04/25/25 Rx release (Laxative (bisacodyl)) citalopram 20 mg tablet (Celexa) 10 mg (1/2 x 20 mg) PO QAM 30 days 04/21/25 04/25/25 Rx #15 tabs duloxetine 30 mg capsule,delayed 30 mg PO Q12HR 30 days #60 caps 04/21/25 04/25/25 Rx release (Cymbalta) multivitamin 1 tablet PO DAILY #30 tabs 04/21/25 04/25/25 Rx peg [id number] 1 1 drp EACH EYE QID PRN Dry Eye(S) 04/21/25 04/25/25 Rx %-0.2 %-0.2 % eye drops 30 days #15 mL (Artificial Tears ([id number])) pregabalin 75 mg capsule (Lyrica) 150 mg (2 x 75 mg) PO TID 30 days 04/21/25 04/25/25 Rx #180 caps thiamine HCl (vitamin B1) 100 mg 100 mg PO QAM 30 days #30 tabs 04/21/25 04/25/25 Rx tablet (Vitamin B-1) baclofen 5 mg tablet 5 mg PO TID spastic movements 04/25/25 04/25/25 History Laboratory Tests 04/28/25 04/28/25 04/28/25 06:14 08:04 09:19 WBC 5.8 K/mm3 5.7 K/mm3 (4.5-10.0) (4.5-10.0) RBC 2.22 L M/mm3 2.07 L M/mm3 (4.6-6.20) (4.6-6.20) Hgb 6.6 L* g/dL 6.2 L* g/dL (14.0-18.0) (14.0-18.0) Hct 21.0 L % 19.5 L* % (42.0-52.0) (42.0-52.0) MCV 94.6 fl 94.2 fl (80-100) (80-100) MCH 29.7 pg 30.0 pg (26-34) (26-34) MCHC 31.4 L g/dl 31.8 L g/dl (32-36) (32-36) RDW 15.9 H % 15.9 H % (11.5-14.5) (11.5-14.5) Plt Count 179 k/mm3 177 k/mm3 (150-375) (150-375) MPV 11.4 H fl 11.2 H fl (7.4-10.4) (7.4-10.4) Immature Gran % (Auto) 0.7 H % 0.4 % (0-0.5) (0-0.5) Neut % (Auto) 59.2 % 58.7 % (45.5-73.1) (45.5-73.1) Lymph % (Auto) 32.2 % 31.2 % (18.3-44.2) (18.3-44.2) [place] % (Auto) 6.2 % 7.9 % (2.6-8.5) (2.6-8.5) Eos % (Auto) 1.0 % 1.1 % (0-4.4) (0-4.4) Baso % (Auto) 0.7 % 0.7 % (0.2-1.2) (0.2-1.2) Lymph # (Auto) 1.86 K/mm3 1.78 K/mm3 (0.9-3.2) (0.9-3.2) [place] # (Auto) 0.4 K/mm3 0.5 K/mm3 (0.1-0.6) (0.1-0.6) Eos # (Auto) 0.1 K/mm3 0.1 K/mm3 (0-0.3) (0-0.3) Baso # (Auto) 0.0 K/mm3 0.0 K/mm3 (0.0-0.1) (0.0-0.1) Abs Immat Gran (auto) 0.04 H K/mm3 0.02 K/mm3 (0.00-0.031) (0.00-0.031) Absolute Neuts (auto) 3.4 K/mm3 3.4 K/mm3 (1.3-6.7) (1.3-6.7) Absolute Nucleated RBC 0.000 K/mm3 0.000 K/mm3 (0.0-0.012) (0.0-0.012) Nucleated RBC % 0.0 % 0.0 % (0.0-0.2) (0.0-0.2) Sodium 138 mmol/L (137-145) Potassium 3.3 L mmol/L (3.4-5.0) Chloride 108 H mmol/L (98-107) Carbon Dioxide 23 mmol/L (22-30) Anion Gap 7 mmol/L (4-12) BUN 5 L mg/dL (9-20) Creatinine 0.68 L mg/dL 0.63 L mg/dL (0.7-1.3) (0.7-1.3) Estim Creat Clear Calc 113 ml/min 121 ml/min Estimated GFR > 60 > 60 (59 - ) (59 - ) Glucose 138 H mg/dL (65-110) Lactic Acid 2.0 mmol/L (0.7-2.0) Calcium 8.8 mg/dL (8.4-10.2) Magnesium 1.6 mg/dL (1.6-2.3) Blood Type A Positive Antibody Screen Negative Crossmatch See Detail Patient hx anesthesia problems: none Family hx anesthesia problems: none Results Review: All pre-operative results and documents have been reviewed as part of the pre-operative evaluation. [facility] Past Medical History Medical History Chronic alcoholic liver disease Rectal bleeding Peripheral neuropathy Alcohol withdrawal syndrome Neuropathy Chronic hyponatremia Hepatic steatosis Noted on CT scan 06/2022 Tobacco abuse Hypertension Asthma Anxiety Surgical History Surgical History H/O knee surgery H/O spinal fusion Social History Social History Social History: The patient lives with his significant other. He has 2 daughters. He has smoked 1 pack per day since he was a teenager. He has a history of heavy alcohol use drinking up to 1 5th of vodka every other day with recent decrease in alcohol consumption down to 2-3 beers a day on weekdays and 10 beers a day on weekends. 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 The patient smokes marijuana nightly. Code status: Full code Smoking packs per day: 1 Smoking cigarettes per day: 20.0 Years smoked: 30 Smoking pack-years: 30.00 Smoking status: Current every day smoker Alcohol intake: current Drinks per week: 20 Alcohol use details: social Substance use: current Substance use type: marijuana Last use: 03/29/2025 Do You Feel Safe in your Home?: Yes Lack of Transportation: No Lack of Food: Never True Current Housing: I Have Housing Concerned About Future Housing: No Difficulty Paying Gas/Electric Bills: No Difficulty Paying for Meds: No Currently Unemployed: No Education: Associate Degree Difficulty w/ Childcare or Family Care: No Living arrangements: with family Gender identity (if verbalized by the patient): Male Spiritual care concerns: No Anes - Eval Final PreProcedure Day of Procedure 04/28/25 10:57 Patient weight: normal Heart: tachycardia Lungs: decreased breath sounds Airway: Mallampati scale class II Neurological: alert and oriented Last oral intake: >/= 8 hours ASA classification: IV Emergent: no Anesthetic plan: proceed Anesthesia type and monitoring: general GIVS and standard monitoring Results Review: All pre-operative results and documents have been reviewed as part of the pre-operative evaluation. Informed Consent: The patient's anesthetic plan and its attendant risks and benefits were discussed with the patient/family/POA. Questions were solicited and answers provided to the satisfaction of the patient/family/POA.
[2025-04-28] MEDS: LACTATED RINGERS 1,000 ML 150 ML IV CONT (11:08)
--- NOTE | 2025-04-28 11:57 | WPDGIPROGNO ---
Progress Note: A&P Assessment and Plan (1) Rectal ulcer: Code(s): K62.6 - Ulcer of anus and rectum Status: Acute Assessment and Plan: See sigmoidoscopy report. Will keep patient under observation for 24 hours, with a clear liquid diet. Subjective Date/time seen: 04/28/25 11:57 Objective Data Vital Signs Vital Signs: Vital Signs - 24 hr 04/27/25 12:02 04/27/25 13:46 04/27/25 15:00 Temperature 97.6 F 97.2 F L Pulse Rate 106 H 114 H 99 Respiratory Rate 18 12 Blood Pressure 98/75 L 101/76 Pulse Oximetry 100 100 Oxygen Delivery Room Air 04/27/25 15:26 04/27/25 15:36 04/27/25 15:46 Temperature Pulse Rate 104 H 97 96 Respiratory Rate 24 H 16 15 Blood Pressure 86/58 L 100/58 L 106/78 Pulse Oximetry 100 100 100 Oxygen Delivery Room Air Room Air Room Air 04/27/25 15:56 04/27/25 20:00 04/27/25 20:25 Temperature 96.8 F L Pulse Rate 97 110 H Respiratory Rate 15 18 Blood Pressure 110/78 96/69 L Pulse Oximetry 100 100 Oxygen Delivery Room Air Room Air 04/27/25 22:10 04/28/25 00:00 04/28/25 04:00 Temperature Pulse Rate 109 H 103 H 88 Respiratory Rate Blood Pressure Pulse Oximetry Oxygen Delivery 04/28/25 05:22 04/28/25 08:00 04/28/25 09:50 Temperature 98.3 F 97.4 F L 96.8 F L Pulse Rate 82 98 97 Respiratory Rate 18 12 18 Blood Pressure 108/73 98/66 L 101/69 Pulse Oximetry 100 100 100 Oxygen Delivery 04/28/25 10:10 04/28/25 10:56 04/28/25 11:10 Temperature 97.1 F L 98.6 F 99.1 F Pulse Rate 103 H 98 96 Respiratory Rate 18 19 19 Blood Pressure 100/74 111/74 117/77 Pulse Oximetry 98 98 100 Oxygen Delivery Room Air 04/28/25 11:52 Temperature Pulse Rate 96 Respiratory Rate 17 Blood Pressure 90/62 L Pulse Oximetry 99 Oxygen Delivery Room Air Intake/Output Intake/Output: Intake & Output 04/25/25 04/26/25 04/27/25 04/28/25 23:59 23:59 23:59 23:59 Intake Total 2750 3572.9 1400 314 Output Total 650 2250 1925 650 Balance 2100 1322.9 -525 -336 Meds/Results Medications: Active Medications Generic Name Dose Route Start Last Admin Trade Name Freq PRN Reason Stop Dose Admin Acetaminophen 650 mg 04/25/25 09:18 04/27/25 09:25 Acetaminophen 325 Mg Tablet PO 650 mg Q6H PRN Administration Mild Pain (1-3) or Fever Hydrocodone Bitart/Acetaminophen 1 tab 04/25/25 09:49 04/28/25 04:16 Hydrocodone/Acetaminophen (*Crx) 5-325 Mg Tablet PO 1 tab Q8H PRN Administration pain 4-6 Albuterol 1 puff 04/25/25 09:31 Albuterol Sulfate (*Sp) Aerosol 1 Puff INHALATION TIDRT PRN Shortness Of Breath Artificial Tears 1 drop 04/25/25 09:16 Artificial Tears Ophth Soln 15 Ml Bottle EACH EYE QID PRN Dry Eye(S) Baclofen 10 mg 04/26/25 13:00 04/28/25 05:16 Baclofen 10 Mg Tablet PO 10 mg Q8HR BRYON Administration Citalopram Hydrobromide 10 mg 04/25/25 09:30 04/28/25 08:58 Citalopram Hydrobromide 10 Mg Tablet PO 10 mg QAM BRYON Administration Duloxetine HCl 30 mg 04/25/25 09:30 04/28/25 08:58 Duloxetine Hcl 30 Mg Capsule.Dr PO 30 mg Q12HR BRYON Administration Folic Acid 1 mg 04/25/25 09:30 04/28/25 08:58 Folic Acid 1 Mg Tablet PO 1 mg DAILY BRYON Administration Sodium Chloride 1,000 mls @ 75 mls/hr 04/25/25 07:05 04/27/25 21:50 Normal Saline Iv IV CONT Not Given .[id number] BRYON Sodium Chloride 250 mls @ 30 mls/hr 04/28/25 08:28 Normal Saline Iv IV CONT 04/28/25 16:47 .[id number] STA Lactated Ringer's 1,000 mls @ 150 mls/hr 04/28/25 10:55 04/28/25 11:08 Lr - Lactated Ringers Iv IV CONT 150 mls/hr .[id number] BRYON Administration Levothyroxine Sodium 50 mcg 04/25/25 09:30 04/28/25 05:18 Levothyroxine Sodium 50 Mcg Tablet PO 50 mcg DAILY@0630 BRYON Administration Lidocaine 1 patch 04/25/25 21:00 04/27/25 20:50 Lidocaine 5% Patch TRANSDERM Not Given HS [facility] Lisinopril 20 mg 04/25/25 09:30 04/28/25 08:58 Lisinopril 20 Mg Tablet PO 20 mg DAILY BRYON Administration Lorazepam 0.5 mg 04/28/25 08:38 Lorazepam (*Crx) 0.5 Mg Tablet PO BID PRN Anxiety Multivitamins Therapeutic 1 tablet 04/25/25 09:30 04/28/25 08:58 Multivitamins Therapeutic Tab (*Bkc) PO 1 tablet DAILY BRYON Administration Nitrofurantoin Macrocrystals 100 mg 04/28/25 09:00 04/28/25 08:58 Nitrofurantoin Monohyd Macrocr 100 Mg Cap PO 05/03/25 08:59 100 mg Q12HR BRYON Administration Polysaccharide Iron Complex 150 mg 04/28/25 08:00 04/28/25 08:58 Polysaccharide Iron Complex 150 Mg Capsule PO 150 mg DAILY@0800 [facility] Administration Pregabalin 150 mg 04/25/25 09:30 04/28/25 08:58 Pregabalin (*Crx) 75 Mg Capsule PO 150 mg TID BRYON Administration Prochlorperazine Edisylate 10 mg 04/25/25 09:18 Prochlorperazine Edisylate 10 Mg/2 Ml Vial IV PUSH Q6H PRN Nausea And Vomiting Simethicone 1.8 ml 04/26/25 14:19 04/26/25 14:20 Simethicone Oral Suspension 20 Mg/0.3 Ml 30 Ml Bottle PO 1.8 ml ONCE PRN Administration Gas Discomfort Thiamine HCl 100 mg 04/25/25 09:00 04/28/25 08:58 Thiamine Hcl 100 Mg Tablet PO 100 mg QAM BRYON Administration Radiology Results: ITS Impressions Abdomen/Pelvis CTA 04/25/25 06:27 Impression: No significant abnormalities seen. Labs Labs: Laboratory Results - last 24 hr 04/28/25 04/28/25 04/28/25 06:14 08:04 09:19 WBC 5.8 5.7 RBC 2.22 L 2.07 L Hgb 6.6 L* 6.2 L* Hct 21.0 L 19.5 L* MCV 94.6 94.2 MCH 29.7 30.0 MCHC 31.4 L 31.8 L RDW 15.9 H 15.9 H Plt Count 179 177 MPV 11.4 H 11.2 H Immature Gran % (Auto) 0.7 H 0.4 Neut % (Auto) 59.2 58.7 Lymph % (Auto) 32.2 31.2 [place] % (Auto) 6.2 7.9 Eos % (Auto) 1.0 1.1 Baso % (Auto) 0.7 0.7 Lymph # (Auto) 1.86 1.78 [place] # (Auto) 0.4 0.5 Eos # (Auto) 0.1 0.1 Baso # (Auto) 0.0 0.0 Abs Immat Gran (auto) 0.04 H 0.02 Absolute Neuts (auto) 3.4 3.4 Absolute Nucleated RBC 0.000 0.000 Nucleated RBC % 0.0 0.0 Sodium 138 Potassium 3.3 L Chloride 108 H Carbon Dioxide 23 Anion Gap 7 BUN 5 L Creatinine 0.68 L 0.63 L Estim Creat Clear Calc 113 121 Estimated GFR > 60 > 60 Glucose 138 H Lactic Acid 2.0 Calcium 8.8 Magnesium 1.6 Blood Type A Positive Antibody Screen Negative Crossmatch See Detail
--- NOTE | 2025-04-28 12:55 | P.CDI_ITS ---
CDI Query Clarification Request Please clarify the status of the patient's anemia, if known. Anemia has been documented, please specify type of anemia if known: * Acute blood loss anemia * Chronic blood loss anemia * Anemia of chronic disease (CKD,neoplasm, other) * Aplastic anemia * Dilutional anemia * Iron Deficiency anemia * Pernicious anemia * Nutritional anemia (e.g., scorbutic anemia) * Other anemia * Unknown/unable to determine The medical chart reflects the followin) GI bleed: Code(s): K92.2 - Gastrointestinal hemorrhage, unspecified Status: Acute Assessment and Plan: 04/26 EGD negative 04/27 Colonoscopy today showed: A single superficial stellate 8 mm ulcer was visualized in the rectum at approximately 5 cm above the anal margin. The ulcer had a visible vessel present. The ulcer had a large blood clot present which was removed with a cold snare. The ulcer was actively bleeding (arterial spurting). The lesion was cauterized with BICAP. The cauterization was successful. Two Resolution Clip clip were placed successfully for hemostasis. PLAN Small amount of BRBPR once when wiping overnight, but sounded minimal per nursing * Clear liquids. * GI consulted, appreciate recommendations. * Pantoprazole 40 mg IVP q12. * Serial CBC. Current H&H 12.4/37.3>9.1/28.1>6.04/24 * NS@ 125 ml/hr>75/hr. (2) Chronic alcoholic liver disease: Code(s): K70.9 - Alcoholic liver disease, unspecified Status: Acute Assessment and Plan: * CIWA monitoring. * Encourage to abstain from alcohol. * AST 52>40>34,ALT 65>50>37, alkaline phosphatase 96>78>60. (3) Anemia: Code(s): D64.9 - Anemia, unspecified Status: Acute Assessment and Plan: See GI bleeding as above * Monitor serial CBC's & bleeding * Transfuse for Hgb <7 if patient agreeable. Consent for blood Hgb 04/25: 12.4, 11.0, 10.5 04/26: 10.3, 9.7 04/27: 9.1 04/28: 6.6, 6.2 1 unit PRBC <lEoisa Arguello RN - Last Filed: 04/28/25 13:01> Clarified Diagnosis Clarified Diagnosis: Acute blood loss anemia <Marya Gay APRN - Last Filed: 05/02/25 16:07>
--- NOTE | 2025-04-28 12:55 | WPDCDIQUERY2 ---
CDI Query Clarification Request Please clarify the status of the patient's anemia, if known. Anemia has been documented, please specify type of anemia if known: Acute blood loss anemia Chronic blood loss anemia Anemia of chronic disease (CKD,neoplasm, other) Aplastic anemia Dilutional anemia Iron Deficiency anemia Pernicious anemia Nutritional anemia (e.g., scorbutic anemia) Other anemia Unknown/unable to determine The medical chart reflects the followin) GI bleed: Code(s): K92.2 - Gastrointestinal hemorrhage, unspecified Status: Acute Assessment and Plan: 04/26 EGD negative 04/27 Colonoscopy today showed: A single superficial stellate 8 mm ulcer was visualized in the rectum at approximately 5 cm above the anal margin. The ulcer had a visible vessel present. The ulcer had a large blood clot present which was removed with a cold snare. The ulcer was actively bleeding (arterial spurting). The lesion was cauterized with BICAP. The cauterization was successful. Two Resolution Clip clip were placed successfully for hemostasis. PLAN Small amount of BRBPR once when wiping overnight, but sounded minimal per nursing Clear liquids. GI consulted, appreciate recommendations. Pantoprazole 40 mg IVP q12. Serial CBC. Current H&H 12.4/37.3>9.1/28.1>6.6/ NS@ 125 ml/hr>75/hr. (2) Chronic alcoholic liver disease: Code(s): K70.9 - Alcoholic liver disease, unspecified Status: Acute Assessment and Plan: CIWA monitoring. Encourage to abstain from alcohol. AST 52>40>34,ALT 65>50>37, alkaline phosphatase 96>78>60. (3) Anemia: Code(s): D64.9 - Anemia, unspecified Status: Acute Assessment and Plan: See GI bleeding as above Monitor serial CBC's & bleeding Transfuse for Hgb <7 if patient agreeable. Consent for blood Hgb 04/25: 12.4, 11.0, 10.5 04/26: 10.3, 9.7 04/27: 9.1 04/28: 6.6, 6.2 1 unit PRBC <Eloisa Arguello RN - Last Filed: 04/28/25 13:01> Clarified Diagnosis Clarified Diagnosis: Acute blood loss anemia <Marya Gay APRN - Last Filed: 05/02/25 16:07>
[2025-04-28 13:33] LABS: Hematocrit 23.7 % (42.0-52.0); Hemoglobin 7.7 g/dL (14.0-18.0); Immature Granulocyte Percent A 0.5 % (0-0.5); Lymphocytes Absolute Auto 1.88 K/mm3 (0.9-3.2); Mean Corpuscular HGB Conc 32.5 g/dl (32-36); Mean Corpuscular Hemoglobin 29.8 pg (26-34); Mean Corpuscular Volume 91.9 fl (80-100); Nucleated Red Blood Cells Absolute Auto 0.000 K/mm3 (0.0-0.012); Nucleated Red Blood Cells Perc 0.0 % (0.0-0.2); Platelet Count Result 186 k/mm3 (150-375); Red Blood Count 2.58 M/mm3 (4.6-6.20); White Blood Count 6.5 K/mm3 (4.5-10.0)
[2025-04-28 21:34] LABS: Hematocrit 22.6 % (42.0-52.0); Hemoglobin 7.4 g/dL (14.0-18.0); Immature Granulocyte Percent A 0.3 % (0-0.5); Lymphocytes Absolute Auto 1.93 K/mm3 (0.9-3.2); Mean Corpuscular HGB Conc 32.7 g/dl (32-36); Mean Corpuscular Hemoglobin 29.7 pg (26-34); Mean Corpuscular Volume 90.8 fl (80-100); Nucleated Red Blood Cells Absolute Auto 0.000 K/mm3 (0.0-0.012); Nucleated Red Blood Cells Perc 0.0 % (0.0-0.2); Platelet Count Result 179 k/mm3 (150-375); Red Blood Count 2.49 M/mm3 (4.6-6.20); White Blood Count 6.2 K/mm3 (4.5-10.0)
[2025-04-29] VITALS (9 sets, daily range): BP systolic 99–121; BP diastolic 70–88; PULSE 87–103; RESP 12–16; TEMP 35.6–37.2; O2SAT 97–99
[2025-04-29] MEDS: BACLOFEN 10 MG TABLET PO ×4 (01:07→21:32)
[2025-04-29] MEDS: LORazepam (*CRX) 0.5 MG TABLET PO ×2 (01:07→21:32)
[2025-04-29] MEDS: SODIUM CHLORIDE 0.9% IV 1,000 ML 75 ML IV CONT (01:08)
[2025-04-29] MEDS: LEVOTHYROXINE SODIUM 50 MCG TABLET PO (06:10)
[2025-04-29] MEDS: HYDROcodone/acetaminophen (*CRX) 5-325 MG TABLET 1 TAB PO ×3 (06:14→22:31)
[2025-04-29 07:05] LABS: Hematocrit 22.5 % (42.0-52.0); Hemoglobin 7.3 g/dL (14.0-18.0); Immature Granulocyte Percent A 0.4 % (0-0.5); Lymphocytes Absolute Auto 1.78 K/mm3 (0.9-3.2); Mean Corpuscular HGB Conc 32.4 g/dl (32-36); Mean Corpuscular Hemoglobin 29.9 pg (26-34); Mean Corpuscular Volume 92.2 fl (80-100); Nucleated Red Blood Cells Absolute Auto 0.000 K/mm3 (0.0-0.012); Nucleated Red Blood Cells Perc 0.0 % (0.0-0.2); Platelet Count Result 171 k/mm3 (150-375); Red Blood Count 2.44 M/mm3 (4.6-6.20); White Blood Count 5.4 K/mm3 (4.5-10.0)
[2025-04-29 07:22] LABS: Anion Gap 7 mmol/L (4-12); Blood Urea Nitrogen 4 mg/dL (9-20); Calcium 8.9 mg/dL (8.4-10.2); Carbon Dioxide 24 mmol/L (22-30); Chloride 108 mmol/L (98-107); Estimated CRCL calculation 121 ml/min; Estimated Glomerular Filt Rate > 60; Glucose 112 mg/dL (65-110); Magnesium 1.9 mg/dL (1.6-2.3); Potassium 3.8 mmol/L (3.4-5.0); Sodium 139 mmol/L (137-145)
--- NOTE | 2025-04-29 07:28 | P.PNGI_ITS ---
Progress Note: A&P Assessment and Plan (1) Rectal ulcer: Code(s): K62.6 - Ulcer of anus and rectum Status: Acute Assessment and Plan: The patient had hemostasis of the rectal ulcer with recurrent bleeding ach ieved with next powder. Will provide regular feeding today and keep watching the clinical course. Subjective Date/time seen: 04/29/25 07:28 Interval history: The patient had no bowel movements, no rectal bleeding. Vital signs have remained stable. Hemoglobin stable at 7.3 post Transfusion. Objective Data Vital Signs Vital Signs: Vital Signs - 24 hr 04/28/25 08:00 04/28/25 08:00 04/28/25 09:50 Temperature 97.4 F L 96.8 F L Pulse Rate 98 100 97 Respiratory Rate 12 18 Blood Pressure 98/66 L 101/69 Pulse Oximetry 100 100 Oxygen Delivery 04/28/25 10:10 04/28/25 10:56 04/28/25 11:10 Temperature 97.1 F L 98.6 F 99.1 F Pulse Rate 103 H 98 96 Respiratory Rate 18 19 19 Blood Pressure 100/74 111/74 117/77 Pulse Oximetry 98 98 100 Oxygen Delivery Room Air 04/28/25 11:52 04/28/25 11:54 04/28/25 12:02 Temperature 98.5 F Pulse Rate 96 96 92 Respiratory Rate 17 17 19 Blood Pressure 90/62 L 90/62 L 93/66 L Pulse Oximetry 99 99 100 Oxygen Delivery Room Air Room Air 04/28/25 12:12 04/28/25 12:30 04/28/25 16:00 Temperature 97.4 F L 97.1 F L Pulse Rate 92 88 93 Respiratory Rate 18 14 12 Blood Pressure 101/71 112/75 113/83 Pulse Oximetry 100 100 99 Oxygen Delivery Room Air 04/28/25 16:00 04/28/25 20:00 04/28/25 20:00 Temperature 98.7 F Pulse Rate 88 97 94 Respiratory Rate 12 Blood Pressure 105/69 Pulse Oximetry 98 Oxygen Delivery 04/28/25 20:00 04/29/25 00:00 04/29/25 00:00 Temperature 96.1 F L Pulse Rate 97 100 Respiratory Rate 12 Blood Pressure 99/72 L Pulse Oximetry 97 Oxygen Delivery Room Air 04/29/25 04:00 04/29/25 04:00 Temperature 98.1 F Pulse Rate 88 87 Respiratory Rate 12 Blood Pressure 108/74 Pulse Oximetry 99 Oxygen Delivery Intake/Output Intake/Output: Intake & Output 04/26/25 04/27/25 04/28/25 04/29/25 23:59 23:59 23:59 23:59 Intake Total 3572.9 1400 3679 1220 Output Total 2250 1925 1500 Balance 1322.9 -525 2179 1220 Meds/Results Medications: Active Medications Generic Name Dose Route Start Last Admin Trade Name Freq PRN Reason Stop Dose Admin Acetaminophen 650 mg 04/25/25 09:18 04/27/25 09:25 Acetaminophen 325 Mg Tablet PO 650 mg Q6H PRN Administration Mild Pain (1-3) or Fever Hydrocodone Bitart/Acetaminophen 1 tab 04/25/25 09:49 04/29/25 06:14 Hydrocodone/Acetaminophen (*Crx) 5-325 Mg Tablet PO 1 tab Q8H PRN Administration pain 4-6 Albuterol 1 puff 04/25/25 09:31 Albuterol Sulfate (*Sp) Aerosol 1 Puff INHALATION TIDRT PRN Shortness Of Breath Artificial Tears 1 drop 04/25/25 09:16 Artificial Tears Ophth Soln 15 Ml Bottle EACH EYE QID PRN Dry Eye(S) Baclofen 10 mg 04/26/25 13:00 04/29/25 06:10 Baclofen 10 Mg Tablet PO 10 mg Q8HR BRYON Administration Citalopram Hydrobromide 10 mg 04/25/25 09:30 04/28/25 08:58 Citalopram Hydrobromide 10 Mg Tablet PO 10 mg QAM BRYON Administration Duloxetine HCl 30 mg 04/25/25 09:30 04/28/25 22:08 Duloxetine Hcl 30 Mg Capsule.Dr PO 30 mg Q12HR BRYON Administration Folic Acid 1 mg 04/25/25 09:30 04/28/25 08:58 Folic Acid 1 Mg Tablet PO 1 mg DAILY BRYON Administration Sodium Chloride 1,000 mls @ 75 mls/hr 04/25/25 07:05 04/29/25 01:08 Normal Saline Iv IV CONT 75 mls/hr .[id number] BRYON Administration Levothyroxine Sodium 50 mcg 04/25/25 09:30 04/29/25 06:10 Levothyroxine Sodium 50 Mcg Tablet PO 50 mcg DAILY@0630 BRYON Administration Lidocaine 1 patch 04/25/25 21:00 04/28/25 22:09 Lidocaine 5% Patch TRANSDERM Not Given HS [facility] Lisinopril 20 mg 04/25/25 09:30 04/28/25 08:58 Lisinopril 20 Mg Tablet PO 20 mg DAILY BRYON Administration Lorazepam 0.5 mg 04/28/25 08:38 04/29/25 01:07 Lorazepam (*Crx) 0.5 Mg Tablet PO 0.5 mg BID PRN Administration Anxiety Multivitamins Therapeutic 1 tablet 04/25/25 09:30 04/28/25 08:58 Multivitamins Therapeutic Tab (*Bkc) PO 1 tablet DAILY BRYON Administration Nitrofurantoin Macrocrystals 100 mg 04/28/25 09:00 04/28/25 22:07 Nitrofurantoin Monohyd Macrocr 100 Mg Cap PO 05/03/25 08:59 100 mg Q12HR BRYON Administration Polysaccharide Iron Complex 150 mg 04/28/25 08:00 04/28/25 08:58 Polysaccharide Iron Complex 150 Mg Capsule PO 150 mg DAILY@0800 BRYON Administration Pregabalin 150 mg 04/25/25 09:30 04/28/25 17:01 Pregabalin (*Crx) 75 Mg Capsule PO 150 mg TID BRYON Administration Prochlorperazine Edisylate 10 mg 04/25/25 09:18 Prochlorperazine Edisylate 10 Mg/2 Ml Vial IV PUSH Q6H PRN Nausea And Vomiting Simethicone 1.8 ml 04/26/25 14:19 04/26/25 14:20 Simethicone Oral Suspension 20 Mg/0.3 Ml 30 Ml Bottle PO 1.8 ml ONCE PRN Administration Gas Discomfort Thiamine HCl 100 mg 04/25/25 09:00 04/28/25 08:58 Thiamine Hcl 100 Mg Tablet PO 100 mg QAM BRYON Administration Radiology Results: ITS Impressions Abdomen/Pelvis CTA 04/25/25 06:27 Impression: No significant abnormalities seen. Labs Labs: Laboratory Results - last 24 hr 04/28/25 04/28/25 04/28/25 08:04 09:19 13:27 WBC 5.7 6.5 RBC 2.07 L 2.58 L Hgb 6.2 L* 7.7 L Hct 19.5 L* 23.7 L MCV 94.2 91.9 MCH 30.0 29.8 MCHC 31.8 L 32.5 RDW 15.9 H 15.9 H Plt Count 177 186 MPV 11.2 H 11.2 H Immature Gran % (Auto) 0.4 0.5 Neut % (Auto) 58.7 61.8 Lymph % (Auto) 31.2 28.8 [place] % (Auto) 7.9 7.2 Eos % (Auto) 1.1 0.9 Baso % (Auto) 0.7 0.8 Lymph # (Auto) 1.78 1.88 [place] # (Auto) 0.5 0.5 Eos # (Auto) 0.1 0.1 Baso # (Auto) 0.0 0.1 Abs Immat Gran (auto) 0.02 0.03 Absolute Neuts (auto) 3.4 4.0 Absolute Nucleated RBC 0.000 0.000 Nucleated RBC % 0.0 0.0 Sodium 138 Potassium 3.3 L Chloride 108 H Carbon Dioxide 23 Anion Gap 7 BUN 5 L Creatinine 0.63 L Estim Creat Clear Calc 121 Estimated GFR > 60 Glucose 138 H Lactic Acid 2.0 Calcium 8.8 Magnesium Blood Type A Positive Antibody Screen Negative Crossmatch See Detail 04/28/25 04/29/25 21:28 06:34 WBC 6.2 5.4 RBC 2.49 L 2.44 L Hgb 7.4 L 7.3 L Hct 22.6 L 22.5 L MCV 90.8 92.2 MCH 29.7 29.9 MCHC 32.7 32.4 RDW 16.2 H 16.1 H Plt Count 179 171 MPV 11.0 H 11.4 H Immature Gran % (Auto) 0.3 0.4 Neut % (Auto) 59.6 57.9 Lymph % (Auto) 31.0 33.2 [place] % (Auto) 7.2 6.3 Eos % (Auto) 1.3 1.5 Baso % (Auto) 0.6 0.7 Lymph # (Auto) 1.93 1.78 [place] # (Auto) 0.5 0.3 Eos # (Auto) 0.1 0.1 Baso # (Auto) 0.0 0.0 Abs Immat Gran (auto) 0.02 0.02 Absolute Neuts (auto) 3.7 3.1 Absolute Nucleated RBC 0.000 0.000 Nucleated RBC % 0.0 0.0 Sodium 139 Potassium 3.8 Chloride 108 H Carbon Dioxide 24 Anion Gap 7 BUN 4 L Creatinine 0.63 L Estim Creat Clear Calc 121 Estimated GFR > 60 Glucose 112 H Lactic Acid Calcium 8.9 Magnesium 1.9 Blood Type Antibody Screen Crossmatch
[2025-04-29] MEDS: NITROFURANTOIN MONOHYD MACROCR 100 MG CAP PO ×2 (09:01→21:33)
[2025-04-29] MEDS: PREGABALIN (*CRX) 75 MG CAPSULE 150 MG PO ×3 (09:01→17:51)
[2025-04-29] MEDS: CITALOPRAM HYDROBROMIDE 10 MG TABLET PO (09:01)
[2025-04-29] MEDS: FOLIC ACID 1 MG TABLET PO (09:01)
[2025-04-29] MEDS: MULTIVITAMINS THERAPEUTIC TAB (*BKC) 1 TABLET PO (09:02)
[2025-04-29] MEDS: THIAMINE HCL 100 MG TABLET PO (09:02)
--- NOTE | 2025-04-29 12:02 | PCNFU ---
Nutrition Follow-Up Complete: Severe protein calorie malnutrition related to loss of appetite as evidenced by intakes <75% needs >1 month; weight loss 11%/1 month. Goal:Diet orders Improve PO intake when diet is advanced Pt progressing towards goal. Pt current nutrition is Regular, Ensure high protein TID with meals. Nutrition recommendation: continue with current plan of care Last recorded weight is 76.9 kg. Bowel Motility: +BM 04/28 Labs Reviewed: Hgb:7.3, HCT:22.5, Alb:3.4, K:5.4, BUN:4, Cr:0.63, Glu:112 Meds Noted: MVI Skin: WNL Additional Notes: Pt diet upgraded to regular today, pt ate breakfast well at 75%. Ensure Enlive TID ordered for supplement. Encourage po intake of meals and supplements. Monitoring diet orders, intakes, weights, labs, plan of care Follow up in 3 days
--- NOTE | 2025-04-29 13:56 | WPDANESPN ---
Anes - Prog Note Post-Op Date/Time: 04/29/25 13:56 Cardiovascular status: normal Respiratory status: normal Airway patency: baseline Mental status: baseline Post-Op hydration status: normal Vital Signs: Last Vital Signs Temp 97.5 F L 04/29/25 11:32 Pulse 91 04/29/25 11:32 Resp 16 04/29/25 11:32 BP 117/70 04/29/25 11:32 Pulse Ox 99 04/29/25 11:32 O2 Del Method Room Air 04/29/25 08:00 FiO2 21 04/26/25 21:26 Pain Score (VAS): 0 I/O: Intake & Output 04/28/25 04/29/25 04/29/25 23:59 07:59 15:59 Intake Total 1920 1220 240 Output Total 850 Balance 1070 1220 240 Laboratory Tests 04/29/25 06:34 04/29/25 06:34 04/28/25 04/29/25 21:28 06:34 WBC 6.2 5.4 RBC 2.49 L 2.44 L Hgb 7.4 L 7.3 L Hct 22.6 L 22.5 L MCV 90.8 92.2 MCH 29.7 29.9 MCHC 32.7 32.4 RDW 16.2 H 16.1 H Plt Count 179 171 MPV 11.0 H 11.4 H Immature Gran % (Auto) 0.3 0.4 Neut % (Auto) 59.6 57.9 Lymph % (Auto) 31.0 33.2 [place] % (Auto) 7.2 6.3 Eos % (Auto) 1.3 1.5 Baso % (Auto) 0.6 0.7 Lymph # (Auto) 1.93 1.78 [place] # (Auto) 0.5 0.3 Eos # (Auto) 0.1 0.1 Baso # (Auto) 0.0 0.0 Abs Immat Gran (auto) 0.02 0.02 Absolute Neuts (auto) 3.7 3.1 Absolute Nucleated RBC 0.000 0.000 Nucleated RBC % 0.0 0.0 Sodium 139 Potassium 3.8 Chloride 108 H Carbon Dioxide 24 Anion Gap 7 BUN 4 L Creatinine 0.63 L Estim Creat Clear Calc 121 Estimated GFR > 60 Glucose 112 H Calcium 8.9 Magnesium 1.9 Microbiology 04/26/25 06:04 Urine Clean Catch Urine Culture Reflexed - Final Coag neg Staph, not saprophyti Post-procedural complaints: none Patient Feedback: Patient satisfied with anesthetic care.
--- NOTE | 2025-04-29 15:44 | P.PNIM_ITS ---
Progress Note: A&P Assessment and Plan (1) GI bleed: Code(s): K92.2 - Gastrointestinal hemorrhage, unspecified Status: Acute Assessment and Plan: 04/26 EGD negative 04/27 Colonoscopy today showed: A single superficial stellate 8 mm ulcer was visualized in the rectum at approximately 5 cm above the anal margin. The ulcer had a visible vessel present. The ulcer had a large blood clot present which was removed with a cold snare. The ulcer was actively bleeding (arterial spurting). The lesion was cauterized with BICAP. The cauterization was successful. Two Resolution Clip clip were placed successfully for hemostasis. Acute blood loss with H&H 12.4/37.3>9.1/28.1>6.6/21. Taken back for a colonoscopy 04/29 and clip placed for active bleeding PLAN * GI consulted, appreciate recommendations. Advanced diet to regular * Pantoprazole 40 mg IVP q12. * Serial CBC. Current H&H stable, 7.5/23.1. L * Stop fluids * Discharge in AM if VSS (2) Chronic alcoholic liver disease: Code(s): K70.9 - Alcoholic liver disease, unspecified Status: Acute Assessment and Plan: * CIWA monitoring. * Encourage to abstain from alcohol. * AST 52>40>34,ALT 65>50>37, alkaline phosphatase 96>78>60. (3) Anemia: Code(s): D64.9 - Anemia, unspecified Status: Acute Assessment and Plan: See GI bleeding as above * Monitor serial CBC's & bleeding * Transfuse for Hgb <7 if patient agreeable. Consented for blood (4) Generalized weakness: Code(s): R53.1 - Weakness Status: Acute Assessment and Plan: * Restart PT/OT once there is no further bleeding. (5) Peripheral neuropathy: Code(s): G62.9 - Polyneuropathy, unspecified Status: Acute Assessment and Plan: * Thiamine 100 mg PO daily. * Lyrica 150 mg PO TID. (6) Muscle spasm: Code(s): M62.838 - Other muscle spasm Status: Acute Assessment and Plan: * Increase Baclofen 10 mg PO TID. (7) Severe protein-calorie malnutrition: Code(s): E43 - Unspecified severe protein-calorie malnutrition Status: Acute Assessment and Plan: * Patient was just discharged 04/21, machine inspector team followed during long stay for appetite. Patient was not eating solid food, mostly only drinking Ensure. * Add Ensure TID. * Meets criteria for severe malnutrition. Lost 20 lbs during recent hospitalization. 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 Started on Vancomycin but reporting throat swelling/tightness so added as a possible allergy. Symptom resolved without treatment and no hives/rash --Stopped Vanc, started nitrofurantoin 100 BID x5 days--to 05/03 Time Spent With Patient Time: 36 minutes Subjective Date/time seen: 04/29/25 15:44 Interval history: No bleeding or BM. Blood count about the same. Advanced diet Reports pain from chronic neuropathy Review of Systems Review of Systems: All systems reviewed & are unremarkable except as noted in HPI and below Exam Narrative: General - Awake and alert. No acute distress Eyes - PERRLA, EOM intact ENT - No thrush, No erythema Neck - No noticeable or palpable swelling Lymph Nodes - No lymphadenopathy Cardiovascular - RRR no m/r/g, no JVD Lungs: Clear to auscultation, No wheezing, use of accessory muscles, no crackles Skin - Skin warm and dry, no wounds or rashes Abdomen - Normal bowel sounds, abdomen soft and nontender Extremities - No edema, cyanosis or clubbing Musculoskeletal - 2/5 strength, normal range of motion, no swollen or erythematous joints. Neurological ? Alert and oriented x 3, CN 2-12 grossly intact. Psych: Normal mood and affect Objective Data Vital Signs Vital Signs: Vital Signs - 24 hr 04/28/25 16:00 04/28/25 16:00 04/28/25 20:00 Temperature 97.1 F L 98.7 F Pulse Rate 93 88 97 Respiratory Rate 12 12 Blood Pressure 113/83 105/69 Pulse Oximetry 99 98 Oxygen Delivery 04/28/25 20:00 04/28/25 20:00 04/29/25 00:00 Temperature 96.1 F L Pulse Rate 94 97 Respiratory Rate 12 Blood Pressure 99/72 L Pulse Oximetry 97 Oxygen Delivery Room Air 04/29/25 00:00 04/29/25 04:00 04/29/25 04:00 Temperature 98.1 F Pulse Rate 100 88 87 Respiratory Rate 12 Blood Pressure 108/74 Pulse Oximetry 99 Oxygen Delivery 04/29/25 08:00 04/29/25 08:00 04/29/25 11:32 Temperature 98.9 F 97.5 F L Pulse Rate 94 91 Respiratory Rate 14 16 Blood Pressure 104/84 117/70 Pulse Oximetry 99 99 Oxygen Delivery Room Air Intake/Output Intake/Output: Intake & Output 04/26/25 04/27/25 04/28/25 04/29/25 23:59 23:59 23:59 23:59 Intake Total 3572.9 1400 3679 1460 Output Total 2250 1925 1500 Balance 1322.9 -525 2179 1460 Meds/Results Medications: Active Medications Generic Name Dose Route Start Last Admin Trade Name Freq PRN Reason Stop Dose Admin Acetaminophen 650 mg 04/25/25 09:18 04/27/25 09:25 Acetaminophen 325 Mg Tablet PO 650 mg Q6H PRN Administration Mild Pain (1-3) or Fever Hydrocodone Bitart/Acetaminophen 1 tab 04/25/25 09:49 04/29/25 15:11 Hydrocodone/Acetaminophen (*Crx) 5-325 Mg Tablet PO 1 tab Q8H PRN Administration pain 4-6 Albuterol 1 puff 04/25/25 09:31 Albuterol Sulfate (*Sp) Aerosol 1 Puff INHALATION TIDRT PRN Shortness Of Breath Artificial Tears 1 drop 04/25/25 09:16 Artificial Tears Ophth Soln 15 Ml Bottle EACH EYE QID PRN Dry Eye(S) Baclofen 10 mg 04/26/25 13:00 04/29/25 15:09 Baclofen 10 Mg Tablet PO 10 mg Q8HR BRYON Administration Citalopram Hydrobromide 10 mg 04/25/25 09:30 04/29/25 09:01 Citalopram Hydrobromide 10 Mg Tablet PO 10 mg QAM BRYON Administration Duloxetine HCl 30 mg 04/25/25 09:30 04/29/25 09:00 Duloxetine Hcl 30 Mg Capsule.Dr PO 30 mg Q12HR BRYON Administration Folic Acid 1 mg 04/25/25 09:30 04/29/25 09:01 Folic Acid 1 Mg Tablet PO 1 mg DAILY BRYON Administration Sodium Chloride 1,000 mls @ 75 mls/hr 04/25/25 07:05 04/29/25 01:08 Normal Saline Iv IV CONT 75 mls/hr .[id number] BRYON Administration Levothyroxine Sodium 50 mcg 04/25/25 09:30 04/29/25 06:10 Levothyroxine Sodium 50 Mcg Tablet PO 50 mcg DAILY@0630 BRYON Administration Lidocaine 1 patch 04/25/25 21:00 04/28/25 22:09 Lidocaine 5% Patch TRANSDERM Not Given HS [facility] Lisinopril 20 mg 04/25/25 09:30 04/29/25 09:01 Lisinopril 20 Mg Tablet PO 20 mg DAILY BRYON Administration Lorazepam 0.5 mg 04/28/25 08:38 04/29/25 01:07 Lorazepam (*Crx) 0.5 Mg Tablet PO 0.5 mg BID PRN Administration Anxiety Multivitamins Therapeutic 1 tablet 04/25/25 09:30 04/29/25 09:02 Multivitamins Therapeutic Tab (*Bkc) PO 1 tablet DAILY BRYON Administration Nitrofurantoin Macrocrystals 100 mg 04/28/25 09:00 04/29/25 09:01 Nitrofurantoin Monohyd Macrocr 100 Mg Cap PO 05/03/25 08:59 100 mg Q12HR BRYON Administration Polysaccharide Iron Complex 150 mg 04/28/25 08:00 04/29/25 09:01 Polysaccharide Iron Complex 150 Mg Capsule PO 150 mg DAILY@0800 BRYON Administration Pregabalin 150 mg 04/25/25 09:30 04/29/25 15:08 Pregabalin (*Crx) 75 Mg Capsule PO 150 mg TID BRYON Administration Prochlorperazine Edisylate 10 mg 04/25/25 09:18 Prochlorperazine Edisylate 10 Mg/2 Ml Vial IV PUSH Q6H PRN Nausea And Vomiting Simethicone 1.8 ml 04/26/25 14:19 04/26/25 14:20 Simethicone Oral Suspension 20 Mg/0.3 Ml 30 Ml Bottle PO 1.8 ml ONCE PRN Administration Gas Discomfort Thiamine HCl 100 mg 04/25/25 09:00 04/29/25 09:02 Thiamine Hcl 100 Mg Tablet PO 100 mg QAM BRYON Administration Radiology Results: ITS Impressions Abdomen/Pelvis CTA 04/25/25 06:27 Impression: No significant abnormalities seen. Labs Labs: Laboratory Results - last 24 hr 04/28/25 04/29/25 21:28 06:34 WBC 6.2 5.4 RBC 2.49 L 2.44 L Hgb 7.4 L 7.3 L Hct 22.6 L 22.5 L MCV 90.8 92.2 MCH 29.7 29.9 MCHC 32.7 32.4 RDW 16.2 H 16.1 H Plt Count 179 171 MPV 11.0 H 11.4 H Immature Gran % (Auto) 0.3 0.4 Neut % (Auto) 59.6 57.9 Lymph % (Auto) 31.0 33.2 [place] % (Auto) 7.2 6.3 Eos % (Auto) 1.3 1.5 Baso % (Auto) 0.6 0.7 Lymph # (Auto) 1.93 1.78 [place] # (Auto) 0.5 0.3 Eos # (Auto) 0.1 0.1 Baso # (Auto) 0.0 0.0 Abs Immat Gran (auto) 0.02 0.02 Absolute Neuts (auto) 3.7 3.1 Absolute Nucleated RBC 0.000 0.000 Nucleated RBC % 0.0 0.0 Sodium 139 Potassium 3.8 Chloride 108 H Carbon Dioxide 24 Anion Gap 7 BUN 4 L Creatinine 0.63 L Estim Creat Clear Calc 121 Estimated GFR > 60 Glucose 112 H Calcium 8.9 Magnesium 1.9 Quality VTE Prophylaxis VTE prophylaxis: mechanical ordered Hospitalist MIPS Advance Care Plan I have confirmed that the patient's Advanced Care Plan is present, code status is documented, or surrogate decision maker is listed in patient medical record.: Yes Medication Reconciliation I have utilized all available resources to obtain, update and review the patients current medications (includes all prescriptions, OTC, herbals, cannabis, and nutritional supplements).: Yes
[2025-04-29 16:18] LABS: Hematocrit 23.1 % (42.0-52.0); Hemoglobin 7.5 g/dL (14.0-18.0); Immature Granulocyte Percent A 0.5 % (0-0.5); Lymphocytes Absolute Auto 1.59 K/mm3 (0.9-3.2); Mean Corpuscular HGB Conc 32.5 g/dl (32-36); Mean Corpuscular Hemoglobin 29.8 pg (26-34); Mean Corpuscular Volume 91.7 fl (80-100); Nucleated Red Blood Cells Absolute Auto 0.000 K/mm3 (0.0-0.012); Nucleated Red Blood Cells Perc 0.0 % (0.0-0.2); Platelet Count Result 174 k/mm3 (150-375); Red Blood Count 2.52 M/mm3 (4.6-6.20); White Blood Count 6.5 K/mm3 (4.5-10.0)
[2025-04-29 16:30] LABS: Anion Gap 9 mmol/L (4-12); Blood Urea Nitrogen 6 mg/dL (9-20); Calcium 9.2 mg/dL (8.4-10.2); Carbon Dioxide 25 mmol/L (22-30); Chloride 107 mmol/L (98-107); Estimated CRCL calculation 110 ml/min; Estimated Glomerular Filt Rate > 60; Glucose 126 mg/dL (65-110); Potassium 3.7 mmol/L (3.4-5.0); Sodium 141 mmol/L (137-145)
--- NOTE | 2025-04-29 19:30 | PC.NURSE ---
On 04/29/25, the DIRECTOR OF PURCHASING, Elizabeth Erwin, provided care and completed [employer] documentation on this patient. I have reviewed the DIRECTOR OF PURCHASING's documentation and agree with the findings.
--- NOTE | 2025-04-29 20:11 | ECG_ITS ---
Test Date: 2025-04-29 20:32:08 Measurements Intervals [place] Rate: 89 P: 48 DE: 164 QRS: 3 QRSD: 110 T: 33 QT: 382 QTc: 466 Interpretive Statements SINUS RHYTHM DELAYED PRECORDIAL R/S TRANSITION BORDERLINE T WAVE ABNORMALITY- ANT/INF LEADS BASELINE ARTIFACT- I, II, III, AVR, AVL, AVF, V1-V6 BORDERLINE ECG Compared to ECG 03/30/2025 14:38:33 NO SIGNIFICANT CHANGE Electronically Signed On 04-29-2025 20:34:08 CDT by Rodriguez Shipley D.O.
[2025-04-29] MEDS: LIDOCAINE 5% PATCH 1 PATCH TRANSDERM (21:33)
[2025-04-29 21:48] LABS: Hematocrit 21.6 % (42.0-52.0); Hemoglobin 7.2 g/dL (14.0-18.0)
[2025-04-29 21:58] LABS: Anion Gap 8 mmol/L (4-12); Blood Urea Nitrogen 7 mg/dL (9-20); Calcium 9.2 mg/dL (8.4-10.2); Carbon Dioxide 24 mmol/L (22-30); Chloride 107 mmol/L (98-107); Estimated CRCL calculation 119 ml/min; Estimated Glomerular Filt Rate > 60; Glucose 119 mg/dL (65-110); Magnesium 1.9 mg/dL (1.6-2.3); Potassium 3.5 mmol/L (3.4-5.0); Sodium 139 mmol/L (137-145)
[2025-04-29] MEDS: ACETAMINOPHEN 325 MG TABLET 650 MG PO (22:31)
[2025-04-29] MEDS: TIZANIDINE HCL 4 MG TABLET PO (23:32)
[2025-04-30] VITALS (16 sets, daily range): BP systolic 70–125; BP diastolic 50–88; PULSE 69–109; RESP 12–20; TEMP 35.8–36.6; O2SAT 97–100
[2025-04-30] MEDS: SODIUM CHLORIDE 0.9% IV 500 ML 999 ML IV CONT (06:28)
--- NOTE | 2025-04-30 07:07 | P.PNIM_ITS ---
Progress Note: A&P Assessment and Plan (1) GI bleed: Code(s): K92.2 - Gastrointestinal hemorrhage, unspecified Status: Acute Assessment and Plan: 04/26 EGD negative 04/27 Colonoscopy today showed: A single superficial stellate 8 mm ulcer was visualized in the rectum at approximately 5 cm above the anal margin. The ulcer had a visible vessel present. The ulcer had a large blood clot present which was removed with a cold snare. The ulcer was actively bleeding (arterial spurting). The lesion was cauterized with BICAP. The cauterization was successful. Two Resolution Clip clip were placed successfully for hemostasis. Acute blood loss with H&H 12.4/37.3>9.1/28.1>6.6/21. Taken back for a colonoscopy 04/29 and clip placed for active bleeding s/p 1 unit of blood 04/28 PLAN * GI consulted, appreciate recommendations. Advanced diet to regular * Pantoprazole 40 mg IVP q12. * Serial CBC. Current H&H lower, 7.5/23.1>7.2/21.6>6.3/20 1 unit PRBC today, 04/30 * s/p 1000ml fluids overnight (2) Chronic alcoholic liver disease: Code(s): K70.9 - Alcoholic liver disease, unspecified Status: Acute Assessment and Plan: * CIWA monitoring. * Encourage to abstain from alcohol. * AST 52>40>34,ALT 65>50>37, alkaline phosphatase 96>78>60. (3) Anemia: Code(s): D64.9 - Anemia, unspecified Status: Acute Assessment and Plan: See GI bleeding as above * Monitor serial CBC's & bleeding * Transfuse for Hgb <7 if patient agreeable. Consented for blood (4) Generalized weakness: Code(s): R53.1 - Weakness Status: Acute Assessment and Plan: * Restart PT/OT once there is no further bleeding. (5) Peripheral neuropathy: Code(s): G62.9 - Polyneuropathy, unspecified Status: Acute Assessment and Plan: Significant neuropathy in the last month. Was discharged to home last month and quit drinking but had progressive symptoms after he stopped drinking. Is now unable to walk and having difficult with fine motor skills, dropping items, signficant numbness and tingling in arms and legs. Denies vision changes. 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 B12 783 03/30/25. TSH normal. Hepatitis C negative. [place] free light chains ratio 1.05. Total IgM 348 * IV thiamine 500mg q8 x3. Continue thiamine 100 mg PO daily. * Check B6, Copper, Vitamin E, heavy metals * Lyrica 150 mg PO TID. * Consult neurology (6) Muscle spasm: Code(s): M62.838 - Other muscle spasm Status: Acute Assessment and Plan: * Increased Baclofen 10 mg PO TID. 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 Patient was not eating solid food, mostly only drinking Ensure. * Add Ensure TID. * Meets criteria for severe malnutrition. Lost 20 lbs during recent hospitalization. 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 Started on Vancomycin but reporting throat swelling/tightness so added as a possible allergy. Symptom resolved without treatment and no hives/rash --Stopped Vanc, started nitrofurantoin 100 BID x5 days--to 05/03 Time Spent With Patient Time: 52 minutes Subjective Date/time seen: 04/30/25 07:07 Interval history: Hypotensive overnight. s/p 500 bolus, repeating bolus for BP 80's. Up to 90's but diaphoretic No visible bleeding overnight per nursing Clear liquid diet CBC pending. Transfuse if low Significant neuropathy Review of Systems Review of Systems: All systems reviewed & are unremarkable except as noted in HPI and below Exam Narrative: General - Awake and alert. No acute distress Eyes - PERRLA, EOM intact ENT - No thrush, No erythema Neck - No noticeable or palpable swelling Lymph Nodes - No lymphadenopathy Cardiovascular - RRR no m/r/g, no JVD Lungs: Clear to auscultation, No wheezing, use of accessory muscles, no crackles Skin - Skin warm and dry, no wounds or rashes Abdomen - Normal bowel sounds, abdomen soft and nontender Extremities - No edema, cyanosis or clubbing Musculoskeletal - 2/5 strength, normal range of motion, no swollen or erythematous joints. Neurological ? Alert and oriented x 3, CN 2-12 grossly intact. Psych: Normal mood and affect Objective Data Vital Signs Vital Signs: Vital Signs - 24 hr 04/29/25 08:00 04/29/25 08:00 04/29/25 08:00 Temperature 98.9 F Pulse Rate 94 93 Respiratory Rate 14 Blood Pressure 104/84 Pulse Oximetry 99 Oxygen Delivery Room Air 04/29/25 11:32 04/29/25 12:00 04/29/25 16:00 Temperature 97.5 F L Pulse Rate 91 94 103 H Respiratory Rate 16 Blood Pressure 117/70 Pulse Oximetry 99 Oxygen Delivery 04/29/25 20:00 04/29/25 20:00 04/29/25 20:30 Temperature Pulse Rate 91 Respiratory Rate Blood Pressure Pulse Oximetry 99 Oxygen Delivery Room Air [employer]op[employer] 04/29/25 22:08 04/30/25 00:00 04/30/25 04:00 Temperature 97.7 F Pulse Rate 97 87 79 Respiratory Rate 12 Blood Pressure 121/88 Pulse Oximetry 99 Oxygen Delivery 04/30/25 06:15 Temperature 96.5 F L Pulse Rate 69 Respiratory Rate 12 Blood Pressure 70/50 L Pulse Oximetry 97 Oxygen Delivery Intake/Output Intake/Output: Intake & Output 04/27/25 04/28/25 04/29/25 04/30/25 23:59 23:59 23:59 23:59 Intake Total 1400 3679 2920 440 Output Total 1925 1500 1100 0 Balance -525 2179 1820 440 Meds/Results Medications: Active Medications Generic Name Dose Route Start Last Admin Trade Name Freq PRN Reason Stop Dose Admin Acetaminophen 650 mg 04/25/25 09:18 04/29/25 22:31 Acetaminophen 325 Mg Tablet PO 650 mg Q6H PRN Administration Mild Pain (1-3) or Fever Hydrocodone Bitart/Acetaminophen 1 tab 04/25/25 09:49 04/29/25 22:31 Hydrocodone/Acetaminophen (*Crx) 5-325 Mg Tablet PO 1 tab Q8H PRN Administration pain 4-6 Albuterol 1 puff 04/25/25 09:31 Albuterol Sulfate (*Sp) Aerosol 1 Puff INHALATION TIDRT PRN Shortness Of Breath Artificial Tears 1 drop 04/25/25 09:16 Artificial Tears Ophth Soln 15 Ml Bottle EACH EYE QID PRN Dry Eye(S) Baclofen 10 mg 04/26/25 13:00 04/30/25 06:52 Baclofen 10 Mg Tablet PO Not Given Q8HR BRYON Citalopram Hydrobromide 10 mg 04/25/25 09:30 04/29/25 09:01 Citalopram Hydrobromide 10 Mg Tablet PO 10 mg QAM BRYON Administration Duloxetine HCl 30 mg 04/25/25 09:30 04/29/25 21:33 Duloxetine Hcl 30 Mg Capsule.Dr PO 30 mg Q12HR BRYON Administration Folic Acid 1 mg 04/25/25 09:30 04/29/25 09:01 Folic Acid 1 Mg Tablet PO 1 mg DAILY BRYON Administration Sodium Chloride 500 mls @ 500 mls/hr 04/30/25 07:06 Normal Saline Iv IV CONT 04/30/25 08:05 .Q1H ONE Levothyroxine Sodium 50 mcg 04/25/25 09:30 04/30/25 06:33 Levothyroxine Sodium 50 Mcg Tablet PO Not Given DAILY@0630 BRYON Lidocaine 1 patch 04/25/25 21:00 04/29/25 21:33 Lidocaine 5% Patch TRANSDERM 1 patch HS BRYON Administration Lisinopril 20 mg 04/25/25 09:30 04/29/25 09:01 Lisinopril 20 Mg Tablet PO 20 mg DAILY BRYON Administration Lorazepam 0.5 mg 04/28/25 08:38 04/29/25 21:32 Lorazepam (*Crx) 0.5 Mg Tablet PO 0.5 mg BID PRN Administration Anxiety Multivitamins Therapeutic 1 tablet 04/25/25 09:30 04/29/25 09:02 Multivitamins Therapeutic Tab (*Bkc) PO 1 tablet DAILY BRYON Administration Nitrofurantoin Macrocrystals 100 mg 04/28/25 09:00 04/29/25 21:33 Nitrofurantoin Monohyd Macrocr 100 Mg Cap PO 05/03/25 08:59 100 mg Q12HR BRYON Administration Polysaccharide Iron Complex 150 mg 04/28/25 08:00 04/29/25 09:01 Polysaccharide Iron Complex 150 Mg Capsule PO 150 mg DAILY@0800 BRYON Administration Pregabalin 150 mg 04/25/25 09:30 04/29/25 17:51 Pregabalin (*Crx) 75 Mg Capsule PO 150 mg TID BRYON Administration Prochlorperazine Edisylate 10 mg 04/25/25 09:18 Prochlorperazine Edisylate 10 Mg/2 Ml Vial IV PUSH Q6H PRN Nausea And Vomiting Simethicone 1.8 ml 04/26/25 14:19 04/26/25 14:20 Simethicone Oral Suspension 20 Mg/0.3 Ml 30 Ml Bottle PO 1.8 ml ONCE PRN Administration Gas Discomfort Thiamine HCl 100 mg 04/25/25 09:00 04/29/25 09:02 Thiamine Hcl 100 Mg Tablet PO 100 mg QAM BRYON Administration Radiology Results: ITS Impressions Abdomen/Pelvis CTA 04/25/25 06:27 Impression: No significant abnormalities seen. Labs Labs: Laboratory Results - last 24 hr 04/29/25 04/29/25 04/29/25 06:34 16:11 21:30 WBC 5.4 6.5 RBC 2.44 L 2.52 L Hgb 7.3 L 7.5 L 7.2 L Hct 22.5 L 23.1 L 21.6 L MCV 92.2 91.7 MCH 29.9 29.8 MCHC 32.4 32.5 RDW 16.1 H 16.4 H Plt Count 171 174 MPV 11.4 H 11.1 H Immature Gran % (Auto) 0.4 0.5 Neut % (Auto) 57.9 67.0 Lymph % (Auto) 33.2 24.5 [place] % (Auto) 6.3 6.3 Eos % (Auto) 1.5 1.2 Baso % (Auto) 0.7 0.5 Lymph # (Auto) 1.78 1.59 [place] # (Auto) 0.3 0.4 Eos # (Auto) 0.1 0.1 Baso # (Auto) 0.0 0.0 Abs Immat Gran (auto) 0.02 0.03 Absolute Neuts (auto) 3.1 4.3 Absolute Nucleated RBC 0.000 0.000 Nucleated RBC % 0.0 0.0 Sodium 139 141 139 Potassium 3.8 3.7 3.5 Chloride 108 H 107 107 Carbon Dioxide 24 25 24 Anion Gap 7 9 8 BUN 4 L 6 L 7 L Creatinine 0.63 L 0.70 0.64 L Estim Creat Clear Calc 121 110 119 Estimated GFR > 60 > 60 > 60 Glucose 112 H 126 H 119 H POC Capillary Glucose Calcium 8.9 9.2 9.2 Magnesium 1.9 1.9 04/30/25 05:28 WBC RBC Hgb Hct MCV MCH MCHC RDW Plt Count MPV Immature Gran % (Auto) Neut % (Auto) Lymph % (Auto) [place] % (Auto) Eos % (Auto) Baso % (Auto) Lymph # (Auto) [place] # (Auto) Eos # (Auto) Baso # (Auto) Abs Immat Gran (auto) Absolute Neuts (auto) Absolute Nucleated RBC Nucleated RBC % Sodium Potassium Chloride Carbon Dioxide Anion Gap BUN Creatinine Estim Creat Clear Calc Estimated GFR Glucose POC Capillary Glucose 110 H Calcium Magnesium Quality VTE Prophylaxis VTE prophylaxis: mechanical ordered Hospitalist MIPS Advance Care Plan I have confirmed that the patient's Advanced Care Plan is present, code status is documented, or surrogate decision maker is listed in patient medical record.: Yes Medication Reconciliation I have utilized all available resources to obtain, update and review the patient s current medications (includes all prescriptions, OTC, herbals, cannabis, and nutritional supplements).: Yes
[2025-04-30] MEDS: SODIUM CHLORIDE 0.9% IV 500 ML IV CONT (07:18)
[2025-04-30 08:40] LABS: Anion Gap 7 mmol/L (4-12); Blood Urea Nitrogen 8 mg/dL (9-20); Calcium 9.0 mg/dL (8.4-10.2); Carbon Dioxide 22 mmol/L (22-30); Chloride 110 mmol/L (98-107); Estimated CRCL calculation 106 ml/min; Estimated Glomerular Filt Rate > 60; Glucose 107 mg/dL (65-110); Magnesium 2.0 mg/dL (1.6-2.3); Potassium 3.7 mmol/L (3.4-5.0); Sodium 139 mmol/L (137-145)
[2025-04-30] MEDS: PREGABALIN (*CRX) 75 MG CAPSULE 150 MG PO ×3 (09:11→16:25)
[2025-04-30] MEDS: MULTIVITAMINS THERAPEUTIC TAB (*BKC) 1 TABLET PO (09:12)
[2025-04-30] MEDS: NITROFURANTOIN MONOHYD MACROCR 100 MG CAP PO ×2 (09:12→21:24)
[2025-04-30] MEDS: THIAMINE HCL 100 MG TABLET PO (09:12)
[2025-04-30] MEDS: FOLIC ACID 1 MG TABLET PO (09:12)
[2025-04-30] MEDS: CITALOPRAM HYDROBROMIDE 10 MG TABLET PO (09:12)
[2025-04-30 09:56] LABS: Immature Granulocyte Percent A 0.4 % (0-0.5); Lymphocytes Absolute Auto 1.54 K/mm3 (0.9-3.2); Mean Corpuscular HGB Conc 31.5 g/dl (32-36); Mean Corpuscular Hemoglobin 29.9 pg (26-34); Mean Corpuscular Volume 94.8 fl (80-100); Nucleated Red Blood Cells Absolute Auto 0.000 K/mm3 (0.0-0.012); Nucleated Red Blood Cells Perc 0.0 % (0.0-0.2); Platelet Count Result 168 k/mm3 (150-375); Red Blood Count 2.11 M/mm3 (4.6-6.20); White Blood Count 4.9 K/mm3 (4.5-10.0)
[2025-04-30 10:00] LABS: Hematocrit 20.0 % (42.0-52.0); Hemoglobin 6.3 g/dL (14.0-18.0)
[2025-04-30] MEDS: TUBING, BLOOD PLUM PUMP TUBING 1 EACH XX (11:12)
[2025-04-30] MEDS: SODIUM CHLORIDE 0.9% IV 250 ML 30 ML IV CONT (11:12)
[2025-04-30] MEDS: HYDROcodone/acetaminophen (*CRX) 5-325 MG TABLET 1 TAB PO ×2 (11:15→21:19)
[2025-04-30] MEDS: BACLOFEN 10 MG TABLET PO ×2 (13:01→21:19)
[2025-04-30 15:49] LABS: Hematocrit 25.1 % (42.0-52.0); Hemoglobin 8.2 g/dL (14.0-18.0); Immature Granulocyte Percent A 0.7 % (0-0.5); Lymphocytes Absolute Auto 1.69 K/mm3 (0.9-3.2); Mean Corpuscular HGB Conc 32.7 g/dl (32-36); Mean Corpuscular Hemoglobin 29.9 pg (26-34); Mean Corpuscular Volume 91.6 fl (80-100); Nucleated Red Blood Cells Absolute Auto 0.000 K/mm3 (0.0-0.012); Nucleated Red Blood Cells Perc 0.0 % (0.0-0.2); Platelet Count Result 175 k/mm3 (150-375); Red Blood Count 2.74 M/mm3 (4.6-6.20); White Blood Count 5.9 K/mm3 (4.5-10.0)
[2025-04-30] MEDS: THIAMINE 500 MG/NS 100 ML 500 MG/100 ML BAG 200 MG IVPB (16:25)
[2025-04-30] MEDS: LORazepam (*CRX) 0.5 MG TABLET PO ×2 (16:26→21:19)
[2025-05-01] VITALS (9 sets, daily range): BP systolic 131–145; BP diastolic 89–97; PULSE 80–99; RESP 14–20; TEMP 35.9–36.4; O2SAT 98–100
[2025-05-01] MEDS: THIAMINE 500 MG/NS 100 ML 500 MG/100 ML BAG 200 MG IVPB ×2 (01:44→08:58)
[2025-05-01] MEDS: CAPSAICIN 0.025% CREAM 60 GM TUBE 1 APPLIC TOPICAL (03:56)
[2025-05-01] MEDS: TAPENTADOL HCL (*CRX) 50 MG TABLET PO (04:48)
[2025-05-01] MEDS: BACLOFEN 10 MG TABLET PO ×3 (06:41→21:13)
[2025-05-01] MEDS: LEVOTHYROXINE SODIUM 50 MCG TABLET PO (06:41)
[2025-05-01] MEDS: HYDROcodone/acetaminophen (*CRX) 5-325 MG TABLET 1 TAB PO ×2 (06:41→16:14)
--- NOTE | 2025-05-01 07:03 | P.PNIM_ITS ---
Progress Note: A&P Assessment and Plan (1) GI bleed: Code(s): K92.2 - Gastrointestinal hemorrhage, unspecified Status: Acute Assessment and Plan: 04/26 EGD negative 04/27 Colonoscopy showed: A single superficial stellate 8 mm ulcer was visualized in the rectum at approximately 5 cm above the anal margin. The ulcer had a visible vessel present. The ulcer had a large blood clot present which was removed with a cold snare. The ulcer was actively bleeding (arterial spurting). The lesion was cauterized with BICAP. The cauterization was successful. Two Resolution Clip clip were placed successfully for hemostasis. Acute blood loss with H&H 12.4/37.3>9.1/28.1>6.6/21. 6/ Taken back for a colonoscopy and clip placed for active bleeding. PLAN * GI consulted, appreciate recommendations. Advanced diet to regular * s/p 1 unit of PRBC's 04/28, and 1 unit 04/30 * Pantoprazole 40 mg IVP q12. * Serial CBC. Current H&H lower, 7.5/23.1>7.2/21.6>6./ * s/p 1000ml fluids (2) Chronic alcoholic liver disease: Code(s): K70.9 - Alcoholic liver disease, unspecified Status: Acute Assessment and Plan: * CIWA monitoring. Patient denies any alcohol use since before the prior admission, over a month ago. ETOH level was 0 03/30 * Encourage to abstain from alcohol. * AST 52>40>34,ALT 65>50>37, alkaline phosphatase 96>78>60. (3) Anemia: Code(s): D64.9 - Anemia, unspecified Status: Acute Assessment and Plan: See GI bleeding as above * Monitor serial CBC's & bleeding * Transfuse for Hgb <7 if patient agreeable. Consented for blood (4) Generalized weakness: Code(s): R53.1 - Weakness Status: Acute Assessment and Plan: * Restart PT/OT once there is no further bleeding. (5) Peripheral neuropathy: Code(s): G62.9 - Polyneuropathy, unspecified Status: Acute Assessment and Plan: Significant neuropathy in the last month. Was discharged to home last month and quit drinking but had progressive symptoms after he stopped drinking. Is now unable to walk and having difficult with fine motor skills, dropping items, signficant numbness and tingling in arms and legs. Denies vision changes. 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 B12 783 03/30/25. TSH normal. Hepatitis C negative. [place] free light chains ratio 1.05. Total IgM 348 * s/p IV thiamine 500mg q8 x3. Continue thiamine 100 mg PO daily. * B6, Copper, Vitamin E, heavy metals pending * Lyrica 150 mg PO TID. * Consulted neurology. Appreciate recommendations (6) Muscle spasm: Code(s): M62.838 - Other muscle spasm Status: Acute Assessment and Plan: * Increased Baclofen 10 mg PO TID. (7) Severe protein-calorie malnutrition: Code(s): E43 - Unspecified severe protein-calorie malnutrition Status: Acute Assessment and Plan: * Patient was just discharged 04/21, summer associate team followed during long stay for appetite. Patient was not eating solid food, mostly only drinking Ensure. * Add Ensure TID. * Meets criteria for severe malnutrition. Lost 20 lbs during recent hospitalization. (8) UTI (urinary tract infection): Code(s): N39.0 - Urinary tract infection, site not specified Status: Acute Assessment and Plan: UA+ grew [employer]. Started on Vancomycin but reporting throat swelling/tightness so added as a possible allergy. Symptom resolved without treatment and no hives/rash --Stopped Vanc, started nitrofurantoin 100 BID x5 days--to 05/03 Time Spent With Patient Time: 35 minutes Subjective Date/time seen: 05/01/25 07:03 Interval history: Vital signs and labs stable overnight CBC stable. Tolerating diet. Likely discharge to SNF tomorrow if no further bleeding Review of Systems Review of Systems: All systems reviewed & are unremarkable except as noted in HPI and below Exam Narrative: General - Awake and alert. No acute distress Eyes - PERRLA, EOM intact ENT - No thrush, No erythema Neck - No noticeable or palpable swelling Lymph Nodes - No lymphadenopathy Cardiovascular - RRR no m/r/g, no JVD Lungs: Clear to auscultation, No wheezing, use of accessory muscles, no crackles Skin - Skin warm and dry, no wounds or rashes Abdomen - Normal bowel sounds, abdomen soft and nontender Extremities - No edema, cyanosis or clubbing Musculoskeletal - 2/5 strength, normal range of motion, no swollen or erythematous joints. Neurological ? Alert and oriented x 3, CN 2-12 grossly intact. Psych: Normal mood and affect Objective Data Vital Signs Vital Signs: Vital Signs - 24 hr 04/30/25 07:08 04/30/25 07:59 04/30/25 08:00 Temperature Pulse Rate 73 Respiratory Rate Blood Pressure 88/56 L 92/64 L Pulse Oximetry Oxygen Delivery Fraction of Inspired Oxygen 04/30/25 08:00 04/30/25 11:12 04/30/25 11:28 Temperature 97.8 F 97.3 F L Pulse Rate 83 87 Respiratory Rate 16 16 Blood Pressure 113/80 110/71 Pulse Oximetry 98 100 Oxygen Delivery Room Air Fraction of Inspired Oxygen 04/30/25 12:00 04/30/25 12:28 04/30/25 13:28 Temperature 97.2 F L 97.3 F L Pulse Rate 93 84 82 Respiratory Rate 16 16 Blood Pressure 121/83 125/85 Pulse Oximetry 98 99 Oxygen Delivery Fraction of Inspired Oxygen 04/30/25 13:50 04/30/25 14:00 04/30/25 16:00 Temperature 97.2 F L 97.2 F L Pulse Rate 83 83 94 Respiratory Rate 16 16 Blood Pressure 121/86 122/86 Pulse Oximetry 99 99 Oxygen Delivery Fraction of Inspired Oxygen 04/30/25 20:00 04/30/25 20:00 04/30/25 21:05 Temperature 97.3 F L Pulse Rate 109 H 106 H 109 H Respiratory Rate 20 20 Blood Pressure 124/88 Pulse Oximetry 99 99 Oxygen Delivery Room Air Fraction of Inspired Oxygen 05/01/25 00:00 05/01/25 04:00 Temperature Pulse Rate 99 85 Respiratory Rate Blood Pressure Pulse Oximetry Oxygen Delivery Fraction of Inspired Oxygen Intake/Output Intake/Output: Intake & Output 04/28/25 04/29/25 04/30/25 05/01/25 23:59 23:59 23:59 23:59 Intake Total 3679 2920 1170 322 Output Total 1500 1100 400 750 Balance 2179 1820 770 -428 Meds/Results Medications: Active Medications Generic Name Dose Route Start Last Admin Trade Name Freq PRN Reason Stop Dose Admin Acetaminophen 650 mg 04/25/25 09:18 04/29/25 22:31 Acetaminophen 325 Mg Tablet PO 650 mg Q6H PRN Administration Mild Pain (1-3) or Fever Hydrocodone Bitart/Acetaminophen 1 tab 04/25/25 09:49 05/01/25 06:41 Hydrocodone/Acetaminophen (*Crx) 5-325 Mg Tablet PO 1 tab Q8H PRN Administration pain 4-6 Albuterol 1 puff 04/25/25 09:31 Albuterol Sulfate (*Sp) Aerosol 1 Puff INHALATION TIDRT PRN Shortness Of Breath Artificial Tears 1 drop 04/25/25 09:16 Artificial Tears Ophth Soln 15 Ml Bottle EACH EYE QID PRN Dry Eye(S) Baclofen 10 mg 04/26/25 13:00 05/01/25 06:41 Baclofen 10 Mg Tablet PO 10 mg Q8HR BRYON Administration Capsaicin 1 applic 05/01/25 03:11 05/01/25 03:56 Capsaicin 0.025% Cream 60 Gm Tube TOPICAL 1 applic Q6H PRN Administration Muscle/Joint Pain Citalopram Hydrobromide 10 mg 04/25/25 09:30 04/30/25 09:12 Citalopram Hydrobromide 10 Mg Tablet PO 10 mg QAM BRYON Administration Duloxetine HCl 30 mg 04/25/25 09:30 04/30/25 21:18 Duloxetine Hcl 30 Mg Capsule.Dr PO 30 mg Q12HR BRYON Administration Folic Acid 1 mg 04/25/25 09:30 04/30/25 09:12 Folic Acid 1 Mg Tablet PO 1 mg DAILY BRYON Administration Thiamine HCl 500 mg in 100 mls @ 200 mls/hr 05/01/25 01:00 05/01/25 02:14 IVPB 05/01/25 09:29 Infused Q8H BRYON Infusion Levothyroxine Sodium 50 mcg 04/25/25 09:30 05/01/25 06:41 Levothyroxine Sodium 50 Mcg Tablet PO 50 mcg DAILY@0630 BRYON Administration Lidocaine 1 patch 04/25/25 21:00 04/30/25 21:26 Lidocaine 5% Patch TRANSDERM Not Given HS BRYON Lisinopril 20 mg 04/25/25 09:30 04/30/25 09:12 Lisinopril 20 Mg Tablet PO 20 mg DAILY BRYON Administration Lorazepam 0.5 mg 04/28/25 08:38 04/30/25 21:19 Lorazepam (*Crx) 0.5 Mg Tablet PO 0.5 mg BID PRN Administration Anxiety Multivitamins Therapeutic 1 tablet 04/25/25 09:30 04/30/25 09:12 Multivitamins Therapeutic Tab (*Bkc) PO 1 tablet DAILY BRYON Administration Nitrofurantoin Macrocrystals 100 mg 04/28/25 09:00 04/30/25 21:24 Nitrofurantoin Monohyd Macrocr 100 Mg Cap PO 05/03/25 08:59 100 mg Q12HR BRYON Administration Polysaccharide Iron Complex 150 mg 04/28/25 08:00 04/30/25 09:11 Polysaccharide Iron Complex 150 Mg Capsule PO 150 mg DAILY@0800 BRYON Administration Pregabalin 150 mg 04/25/25 09:30 04/30/25 16:25 Pregabalin (*Crx) 75 Mg Capsule PO 150 mg TID BRYON Administration Prochlorperazine Edisylate 10 mg 04/25/25 09:18 Prochlorperazine Edisylate 10 Mg/2 Ml Vial IV PUSH Q6H PRN Nausea And Vomiting Simethicone 1.8 ml 04/26/25 14:19 04/26/25 14:20 Simethicone Oral Suspension 20 Mg/0.3 Ml 30 Ml Bottle PO 1.8 ml ONCE PRN Administration Gas Discomfort Radiology Results: ITS Impressions Abdomen/Pelvis CTA 04/25/25 06:27 Impression: No significant abnormalities seen. Labs Labs: Laboratory Results - last 24 hr 04/28/25 04/30/25 04/30/25 08:04 07:25 15:43 WBC 4.9 5.9 RBC 2.11 L 2.74 L Hgb 6.3 L* 8.2 L Hct 20.0 L* 25.1 L MCV 94.8 91.6 MCH 29.9 29.9 MCHC 31.5 L 32.7 RDW 16.7 H 15.8 H Plt Count 168 175 MPV 12.0 H 10.9 H Immature Gran % (Auto) 0.4 0.7 H Neut % (Auto) 55.7 62.6 Lymph % (Auto) 31.6 28.7 [place] % (Auto) 9.9 H 5.8 Eos % (Auto) 1.8 1.5 Baso % (Auto) 0.6 0.7 Lymph # (Auto) 1.54 1.69 [place] # (Auto) 0.5 0.3 Eos # (Auto) 0.1 0.1 Baso # (Auto) 0.0 0.0 Abs Immat Gran (auto) 0.02 0.04 H Absolute Neuts (auto) 2.7 3.7 Absolute Nucleated RBC 0.000 0.000 Nucleated RBC % 0.0 0.0 Sodium 139 Potassium 3.7 Chloride 110 H Carbon Dioxide 22 Anion Gap 7 BUN 8 L Creatinine 0.73 Estim Creat Clear Calc 106 Estimated GFR > 60 Glucose 107 Calcium 9.0 Magnesium 2.0 Blood Type A Positive Antibody Screen Negative Crossmatch See Detail Quality VTE Prophylaxis VTE prophylaxis: mechanical ordered Hospitalist MIPS Advance Care Plan I have confirmed that the patient's Advanced Care Plan is present, code status is documented, or surrogate decision maker is listed in patient medical record.: Yes Medication Reconciliation I have utilized all available resources to obtain, update and review the patients current medications (includes all prescriptions, OTC, herbals, cannabis, and nutritional supplements).: Yes
[2025-05-01 07:20] LABS: Anion Gap 9 mmol/L (4-12); Blood Urea Nitrogen 10 mg/dL (9-20); Calcium 9.3 mg/dL (8.4-10.2); Carbon Dioxide 24 mmol/L (22-30); Chloride 106 mmol/L (98-107); Estimated CRCL calculation 129 ml/min; Estimated Glomerular Filt Rate > 60; Glucose 99 mg/dL (65-110); Magnesium 1.8 mg/dL (1.6-2.3); Potassium 3.4 mmol/L (3.4-5.0); Sodium 139 mmol/L (137-145)
[2025-05-01 07:31] LABS: Hematocrit 26.9 % (42.0-52.0); Hemoglobin 8.8 g/dL (14.0-18.0); Immature Granulocyte Percent A 0.3 % (0-0.5); Lymphocytes Absolute Auto 1.68 K/mm3 (0.9-3.2); Mean Corpuscular HGB Conc 32.7 g/dl (32-36); Mean Corpuscular Hemoglobin 29.9 pg (26-34); Mean Corpuscular Volume 91.5 fl (80-100); Nucleated Red Blood Cells Absolute Auto 0.000 K/mm3 (0.0-0.012); Nucleated Red Blood Cells Perc 0.0 % (0.0-0.2); Platelet Count Result 196 k/mm3 (150-375); Red Blood Count 2.94 M/mm3 (4.6-6.20); White Blood Count 6.5 K/mm3 (4.5-10.0)
[2025-05-01] MEDS: MULTIVITAMINS THERAPEUTIC TAB (*BKC) 1 TABLET PO (08:58)
[2025-05-01] MEDS: CITALOPRAM HYDROBROMIDE 10 MG TABLET PO (08:58)
[2025-05-01] MEDS: NITROFURANTOIN MONOHYD MACROCR 100 MG CAP PO ×2 (08:59→21:13)
[2025-05-01] MEDS: PREGABALIN (*CRX) 75 MG CAPSULE 150 MG PO ×3 (08:59→16:13)
[2025-05-01] MEDS: FOLIC ACID 1 MG TABLET PO (09:00)
[2025-05-01] MEDS: LORazepam (*CRX) 0.5 MG TABLET PO ×2 (11:21→23:17)
--- NOTE | 2025-05-01 11:36 | P.CONNEU_ITS ---
Assessment and Plan Assessment and plan (1) Severe protein-calorie malnutrition: Code(s): E43 - Unspecified severe protein-calorie malnutrition Status: Acute (2) Chronic alcoholic liver disease: Code(s): K70.9 - Alcoholic liver disease, unspecified Status: Acute (3) Neuropathy: Code(s): G62.9 - Polyneuropathy, unspecified Status: Acute (4) Alcohol abuse: Code(s): F10.10 - Alcohol abuse, uncomplicated Status: Acute (5) Ataxia: Code(s): R27.0 - Ataxia, unspecified Status: Acute Plan 1. Chronic alcoholism with all the secondary complications and alcohol withdrawal syndrome during this particular hospitalization 2. Severe neuropathy with resultant neurological disability in ambulation and use of the upper extremities 3. History increased CSF lymphocytes on his previous spinal tap in March of 2025 but other parameters not available. 4. Will benefit from ongoing supportive therapy, physical therapy, rehab and continuation vitamin supplement as no other CSF parameters are available from the study in March if you have any questions please do not hesitate to contact me. He will benefit from B complex supplement as well. Consult date: 05/01/25 HPI: Tyree Rodriguez is a 49 year old male Admitted to the hospital through the emergency room on April 25, 2025 for the chief complaints of GI bleeding. Patient has recently been in the hospital and was discharged to the rehab where he was noted to have GI bleed per rectum. At the time of visit to the ER he was not receiving any blood thinner medications and had no history of chronic liver disease but had the history of alcohol abuse. His medications included lisinopril 20mg daily, folic acid 1mg daily, and levothyroxine 50mcg daily. He is reportedly allergic to tramadol. In the past he has been documented to have 1. Peripheral neuropathy 2. Chronic hyponatremia 3. Hypertension 4. Bronchial asthma 5. Anxiety and 6. Peripheral neuropathy. He has undergone neck surgery and spinal fusion as well. History of smoking pack years 30 and currently everyday smoker also currently alcohol drinker quit 20 drinks per week. On initial exam in the emergency room he was noted to have no focal neurological deficit, with vital signs revealing pulse rate of 110, CTA of the abdomen and pelvis revealed no abnormalities. Vital signs remained stable except that he was tachycardiac, CBC with hemoglobin of only 8.0 and platelet count of 310 basic metabolic panel was normal, has already been seen by the shale miner, has undergone endoscopic exam, documented to have the an oral and rectal ulcer, neuro consultation has been obtained because of the severe neuropathy and has also been seen by Dr. Knowles during his hospitalization in March of this year with documentation of alcohol withdrawal syndrome with hallucination and tremulousness and admission diagnosis of polyneuropathy. Patient still complaining of pain in his both hands and feet, complaining of inability to stand and walk, at present he is also being treated for severe protein calorie malnutrition. His hemoglobin has come up to 8.8 with platelet count 196, most recent electrolytes are normal, his studies in April this year reviewed. At present he is receiving intravenous thiamine and his vitamin B6 and is being checked for copper and heavy metals also because of the severe neuropathy the possibility of superimposed on his underlying chronic social problems. Review of Systems 2 Review of Systems: All systems reviewed & are unremarkable except as noted in HPI and below PMFSH Past Medical History Medical History Chronic alcoholic liver disease Rectal bleeding Peripheral neuropathy Alcohol withdrawal syndrome Neuropathy Chronic hyponatremia Hepatic steatosis Noted on CT scan 06/2022 Tobacco abuse Hypertension Asthma Anxiety Surgical History Surgical History H/O knee surgery H/O spinal fusion Social History Social History Social History: The patient lives with his significant other. He has 2 daughters. He has smoked 1 pack per day since he was a teenager. He has a history of heavy alcohol use drinking up to 1 5th of vodka every other day with recent decrease in alcohol consumption down to 2-3 beers a day on weekdays and 10 beers a day on weekends. 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 The patient smokes marijuana nightly. Code status: Full code Smoking packs per day: 1 Smoking cigarettes per day: 20.0 Years smoked: 30 Smoking pack-years: 30.00 Smoking status: Current every day smoker Alcohol intake: current Drinks per week: 20 Alcohol use details: social Substance use: current Substance use type: marijuana Last use: 03/29/2025 Do You Feel Safe in your Home?: Yes Lack of Transportation: No Lack of Food: Never True Current Housing: I Have Housing Concerned About Future Housing: No Difficulty Paying Gas/Electric Bills: No Difficulty Paying for Meds: No Currently Unemployed: No Education: Associate Degree Difficulty w/ Childcare or Family Care: No Living arrangements: with family Gender identity (if verbalized by the patient): Male Spiritual care concerns: No Meds Home Medications and Allergies Home Medications ?Medication ?Instructions ?Recorded ?Confirmed ?Type albuterol 90 mcg/actuation aerosol 90 mcg inhalation TID PRN 06/12/22 04/25/25 History inhaler Shortness Of Breath lisinopril 20 mg tablet 20 mg PO DAILY 07/23/24 04/25/25 History omeprazole 20 mg tablet,delayed 20 mg PO DAILY #60 tabs 09/21/24 04/25/25 Rx release hydrocodone 5 mg-acetaminophen 325 1 tablet PO Q8H PRN pain #7 tabs 02/22/25 04/25/25 Rx mg tablet methocarbamol 750 mg tablet 750 mg PO TID PRN muscle spasm #14 02/22/25 04/25/25 Rx tabs folic acid 1 mg tablet 1 mg PO DAILY 03/30/25 04/25/25 History levothyroxine 50 mcg tablet 50 mcg PO DAILY 03/30/25 04/25/25 History bisacodyl 5 mg tablet,delayed 5 mg PO QAM 30 days #30 tabs 04/21/25 04/25/25 Rx release (Laxative (bisacodyl)) citalopram 20 mg tablet (Celexa) 10 mg (1/2 x 20 mg) PO QAM 30 days 04/21/25 04/25/25 Rx #15 tabs duloxetine 30 mg capsule,delayed 30 mg PO Q12HR 30 days #60 caps 04/21/25 04/25/25 Rx release (Cymbalta) multivitamin 1 tablet PO DAILY #30 tabs 04/21/25 04/25/25 Rx peg [id number] 1 1 drp EACH EYE QID PRN Dry Eye(S) 04/21/25 04/25/25 Rx %-0.2 %-0.2 % eye drops 30 days #15 mL (Artificial Tears ([id number])) pregabalin 75 mg capsule (Lyrica) 150 mg (2 x 75 mg) PO TID 30 days 04/21/25 04/25/25 Rx #180 caps thiamine HCl (vitamin B1) 100 mg 100 mg PO QAM 30 days #30 tabs 04/21/25 04/25/25 Rx tablet (Vitamin B-1) baclofen 5 mg tablet 5 mg PO TID spastic movements 04/25/25 04/25/25 History Allergies Allergy/AdvReac Type Severity Reaction Status Date / Time tramadol AdvReac Intermediate Agitated Verified 04/28/25 10:55 vancomycin AdvReac Unknown tingling Verified 04/28/25 10:55 Vital Signs Vital Signs - 24 hr 04/30/25 12:00 04/30/25 12:28 04/30/25 13:28 Temperature 36.2 C L 36.3 C L Pulse Rate 93 84 82 Respiratory Rate 16 16 Blood Pressure 121/83 125/85 Pulse Oximetry 98 99 Oxygen Delivery Fraction of Inspired Oxygen 04/30/25 13:50 04/30/25 14:00 04/30/25 16:00 Temperature 36.2 C L 36.2 C L Pulse Rate 83 83 94 Respiratory Rate 16 16 Blood Pressure 121/86 122/86 Pulse Oximetry 99 99 Oxygen Delivery Fraction of Inspired Oxygen 04/30/25 20:00 04/30/25 20:00 04/30/25 21:05 Temperature 36.3 C L Pulse Rate 109 H 106 H 109 H Respiratory Rate 20 20 Blood Pressure 124/88 Pulse Oximetry 99 99 Oxygen Delivery Room Air Fraction of Inspired Oxygen 21 05/01/25 00:00 05/01/25 04:00 05/01/25 06:00 Temperature 35.9 C L Pulse Rate 99 85 92 Respiratory Rate 20 Blood Pressure 145/92 H Pulse Oximetry 99 Oxygen Delivery Fraction of Inspired Oxygen Exam 2 Narrative: Examination today revealed him to be awake alert cooperative, in no obvious acute distress, head normocephalic with no bruit, neck supple with no restriction of the movements constance posteriorly or laterally though he complained of mild discomfort on the minutes of the neck heart regular with no murmur, lungs clear to auscultation, with no rhonchi or crepitations, abdomen soft nontender, neurological examination today revealed him to be awake alert with normal fluent speech without evidence of dysphagia or dysarthria, able to follow the verbal commands appropriately in most severe pain at this present time but concerned about his ongoing disability, pupils round regular feels the vision of full in all 4 quadrants, extraocular movements are full with no nystagmus, facial sensation intact, face symmetrical, uvula midline, tongue midline, no fasciculation of the tongue. Motor examination revealed him to have decreased strength in upper and lower extremities more so in the lower extremities and inability to move both lower extremities particularly at the feet additionally sluggish deep tendon flexes and downgoing plantar responses, has decreased since she has to pinprick and touch in both lower extremities plantar responses are downgoing he was unable to perform heel to knee to [place] and finger to nose to finger he has slight difficulties but there was no ataxia or dysmetria. Results Labs 05/01/25 06:31 05/01/25 06:31 Labs: Short CBC 04/30/25 05/01/25 Range/Units 15:43 06:31 WBC 5.9 6.5 (4.5-10.0) K/mm3 Hgb 8.2 L 8.8 L (14.0-18.0) g/dL Hct 25.1 L 26.9 L (42.0-52.0) % Plt Count 175 196 (150-375) k/mm3 BMP 05/01/25 06:31 Sodium 139 Potassium 3.4 Chloride 106 Carbon Dioxide 24 BUN 10 Creatinine 0.59 L Glucose 99 Calcium 9.3
[2025-05-02] VITALS (8 sets, daily range): BP systolic 126–134; BP diastolic 83–98; PULSE 79–100; RESP 18–20; TEMP 36.1–36.9; O2SAT 98
[2025-05-02] MEDS: HYDROcodone/acetaminophen (*CRX) 5-325 MG TABLET 1 TAB PO ×3 (00:25→20:25)
[2025-05-02] MEDS: LEVOTHYROXINE SODIUM 50 MCG TABLET PO (06:03)
[2025-05-02] MEDS: BACLOFEN 10 MG TABLET PO ×3 (06:03→22:49)
[2025-05-02 07:10] LABS: Anion Gap 6 mmol/L (4-12); Blood Urea Nitrogen 15 mg/dL (9-20); Calcium 9.2 mg/dL (8.4-10.2); Carbon Dioxide 27 mmol/L (22-30); Chloride 102 mmol/L (98-107); Estimated CRCL calculation 123 ml/min; Estimated Glomerular Filt Rate > 60; Glucose 102 mg/dL (65-110); Potassium 3.6 mmol/L (3.4-5.0); Sodium 135 mmol/L (137-145)
[2025-05-02] MEDS: PREGABALIN (*CRX) 75 MG CAPSULE 150 MG PO ×3 (08:54→18:03)
[2025-05-02] MEDS: VITAMIN B COMPLEX CAPSULE 1 CAP PO (08:54)
[2025-05-02] MEDS: MULTIVITAMINS THERAPEUTIC TAB (*BKC) 1 TABLET PO (08:54)
[2025-05-02] MEDS: FOLIC ACID 1 MG TABLET PO (08:54)
[2025-05-02] MEDS: NITROFURANTOIN MONOHYD MACROCR 100 MG CAP PO ×2 (08:54→20:26)
[2025-05-02] MEDS: CITALOPRAM HYDROBROMIDE 10 MG TABLET PO (08:54)
[2025-05-02] MEDS: LORazepam (*CRX) 0.5 MG TABLET PO ×2 (09:07→22:49)
[2025-05-02 09:42] LABS: Hematocrit 27.3 % (42.0-52.0); Hemoglobin 8.8 g/dL (14.0-18.0); Immature Granulocyte Percent A 0.3 % (0-0.5); Lymphocytes Absolute Auto 1.78 K/mm3 (0.9-3.2); Mean Corpuscular HGB Conc 32.2 g/dl (32-36); Mean Corpuscular Hemoglobin 29.7 pg (26-34); Mean Corpuscular Volume 92.2 fl (80-100); Nucleated Red Blood Cells Absolute Auto 0.000 K/mm3 (0.0-0.012); Nucleated Red Blood Cells Perc 0.0 % (0.0-0.2); Platelet Count Result 194 k/mm3 (150-375); Red Blood Count 2.96 M/mm3 (4.6-6.20); White Blood Count 6.4 K/mm3 (4.5-10.0)
[2025-05-02] MEDS: NEOMYCIN/POLYMYXIN/BACITRACIN OINTMENT PACKET 1 PACKET (22:58)
[2025-05-03] VITALS (9 sets, daily range): BP systolic 97–142; BP diastolic 72–99; PULSE 82–101; RESP 16–18; TEMP 36.1–36.9; O2SAT 98–99
[2025-05-03] MEDS: BACLOFEN 10 MG TABLET PO ×3 (05:58→20:50)
[2025-05-03] MEDS: LEVOTHYROXINE SODIUM 50 MCG TABLET PO (05:58)
[2025-05-03 06:41] LABS: Hematocrit 26.7 % (42.0-52.0); Hemoglobin 8.7 g/dL (14.0-18.0); Immature Granulocyte Percent A 0.5 % (0-0.5); Lymphocytes Absolute Auto 1.73 K/mm3 (0.9-3.2); Mean Corpuscular HGB Conc 32.6 g/dl (32-36); Mean Corpuscular Hemoglobin 30.1 pg (26-34); Mean Corpuscular Volume 92.4 fl (80-100); Nucleated Red Blood Cells Absolute Auto 0.000 K/mm3 (0.0-0.012); Nucleated Red Blood Cells Perc 0.0 % (0.0-0.2); Platelet Count Result 205 k/mm3 (150-375); Red Blood Count 2.89 M/mm3 (4.6-6.20); White Blood Count 6.5 K/mm3 (4.5-10.0)
[2025-05-03 06:54] LABS: Anion Gap 8 mmol/L (4-12); Blood Urea Nitrogen 19 mg/dL (9-20); Calcium 9.7 mg/dL (8.4-10.2); Carbon Dioxide 28 mmol/L (22-30); Chloride 101 mmol/L (98-107); Estimated CRCL calculation 121 ml/min; Estimated Glomerular Filt Rate > 60; Glucose 101 mg/dL (65-110); Potassium 3.7 mmol/L (3.4-5.0); Sodium 137 mmol/L (137-145)
[2025-05-03] MEDS: HYDROcodone/acetaminophen (*CRX) 5-325 MG TABLET 1 TAB PO ×2 (08:39→19:44)
[2025-05-03] MEDS: PREGABALIN (*CRX) 75 MG CAPSULE 150 MG PO ×3 (08:40→18:17)
[2025-05-03] MEDS: MULTIVITAMINS THERAPEUTIC TAB (*BKC) 1 TABLET PO (08:40)
[2025-05-03] MEDS: FOLIC ACID 1 MG TABLET PO (08:40)
[2025-05-03] MEDS: VITAMIN B COMPLEX CAPSULE 1 CAP PO (08:40)
[2025-05-03] MEDS: CITALOPRAM HYDROBROMIDE 10 MG TABLET PO (08:40)
--- NOTE | 2025-05-03 14:03 | PCNFU ---
Nutrition Follow-Up Complete: Severe protein calorie malnutrition related to loss of appetite as evidenced by intakes <75% needs >1 month; weight loss 11%/1 month. Diet orders - Goal is met Improve PO intake when diet is advanced - Progressing to goal. Continue current goal Goal: Pt current nutrition is Regular diet, Ensure +HP TID (350 kcal, 20 g protein). Nutrition recommendation: No new recommendations. Continue current nutrition care plan and orders. Agree with orders Last recorded weight is 76.9 kg. Bowel Motility: +1 BM 04/28 Labs Reviewed: Hgb 8.7, Hct 26.7, Alb 3.4, Cre 0.63, PO4 5.4 Meds Noted: Folic acid, lyrica Skin: No pressure injuries Additional Notes: Appetite improved, eating 15-100% meals including outside food. During previous admission pt was only drinking Ensure and not eating solid food.Continue to monitor Monitoring diet orders, intakes, weights, labs, plan of care Follow up in 3 days
--- NOTE | 2025-05-03 16:36 | PM.IMPN ---
Progress Note: A&P Assessment and Plan (1) GI bleed: Code(s): K92.2 - Gastrointestinal hemorrhage, unspecified Status: Acute Assessment and Plan: 04/26 EGD negative 04/27 Colonoscopy showed: A single superficial stellate 8 mm ulcer was visualized in the rectum at approximately 5 cm above the anal margin. The ulcer had a visible vessel present. The ulcer had a large blood clot present which was removed with a cold snare. The ulcer was actively bleeding (arterial spurting). The lesion was cauterized with BICAP. The cauterization was successful. Two Resolution Clip clip were placed successfully for hemostasis. Acute blood loss with H&H 12.4/37.3>9.1/28.1>6.6/21. 6/ Taken back for a colonoscopy and clip placed for active bleeding. PLAN GI consulted, appreciate recommendations. Advanced diet to regular s/p 1 unit of PRBC's 04/28, and 1 unit 04/30 Pantoprazole 40 mg IVP q12. Serial CBC. Current H&H lower, 7.5/23.1>7.2/21.6>6.3/20 s/p 1000ml fluids (2) Chronic alcoholic liver disease: Code(s): K70.9 - Alcoholic liver disease, unspecified Status: Acute Assessment and Plan: CIWA monitoring. Patient denies any alcohol use since before the prior admission, over a month ago. ETOH level was 0 03/30 Encourage to abstain from alcohol. AST 52>40>34,ALT 65>50>37, alkaline phosphatase 96>78>60. (3) Anemia: Code(s): D64.9 - Anemia, unspecified Status: Acute Assessment and Plan: See GI bleeding as above Monitor serial CBC's & bleeding Transfuse for Hgb <7 if patient agreeable. Consented for blood (4) Generalized weakness: Code(s): R53.1 - Weakness Status: Acute Assessment and Plan: Restart PT/OT once there is no further bleeding. (5) Peripheral neuropathy: Code(s): G62.9 - Polyneuropathy, unspecified Status: Acute Assessment and Plan: Significant neuropathy in the last month. Was discharged to home last month and quit drinking but had progressive symptoms after he stopped drinking. Is now unable to walk and having difficult with fine motor skills, dropping items, signficant numbness and tingling in arms and legs. Denies vision changes. 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 B12 783 03/30/25. TSH normal. Hepatitis C negative. Odem/sunshine free light chains ratio 1.05. Total IgM 348 s/p IV thiamine 500mg q8 x3. Continue thiamine 100 mg PO daily. B6, Copper, Vitamin E, heavy metals pending Lyrica 150 mg PO TID. Consulted neurology. Appreciate recommendations (6) Muscle spasm: Code(s): M62.838 - Other muscle spasm Status: Acute Assessment and Plan: Increased Baclofen 10 mg PO TID. (7) Severe protein-calorie malnutrition: Code(s): E43 - Unspecified severe protein-calorie malnutrition Status: Acute Assessment and Plan: Patient was just discharged 04/21, net applications developer team followed during long stay for appetite. Patient was not eating solid food, mostly only drinking Ensure. Add Ensure TID. Meets criteria for severe malnutrition. Lost 20 lbs during recent hospitalization. 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 Started on Vancomycin but reporting throat swelling/tightness so added as a possible allergy. Symptom resolved without treatment and no hives/rash --Stopped Vanc, started nitrofurantoin 100 BID x5 days--to 05/03 Plan patient denies any bleeding, working with PT, will monitor. Subjective Date/time seen: 05/03/25 16:36 Interval history: Vital signs and labs stable overnight CBC stable. Tolerating diet. patient denies any bleeding and working with PT, Likely discharge to SNF tomorrow if no further bleeding Review of Systems Review of Systems: All systems reviewed & are unremarkable except as noted in HPI and below Exam Narrative: Patient is comfortable, NAD HEENT: eyes are clear and none icteric LUNGS:CTA HEART: RR S1S2 ABD: BS+, Soft and nontender Lower extremities: no edema SKIN: nonjaundiced Neuro: grossly intact. Objective Data Vital Signs Vital Signs: Vital Signs - 24 hr 05/02/25 20:00 05/02/25 20:00 05/02/25 20:40 Temperature 36.1 C L Pulse Rate 100 97 Respiratory Rate 20 Blood Pressure 126/83 Pulse Oximetry 98 Oxygen Delivery Room Air Fraction of Inspired Oxygen 05/03/25 00:00 05/03/25 04:00 05/03/25 06:00 Temperature 36.1 C L Pulse Rate 97 84 82 Respiratory Rate 16 Blood Pressure 142/99 H Pulse Oximetry 98 Oxygen Delivery Fraction of Inspired Oxygen 05/03/25 08:00 05/03/25 08:00 05/03/25 14:00 Temperature 36.9 C Pulse Rate 82 82 89 Respiratory Rate 16 16 Blood Pressure 116/97 H Pulse Oximetry 98 98 Oxygen Delivery Room Air Fraction of Inspired Oxygen 21 05/03/25 14:22 Temperature Pulse Rate Respiratory Rate Blood Pressure Pulse Oximetry Oxygen Delivery Room Air Fraction of Inspired Oxygen Intake/Output Intake/Output: Intake & Output 04/30/25 05/01/25 05/02/25 05/03/25 23:59 23:59 23:59 23:59 Intake Total 1170 6242 676 8923 Output Total 400 1350 2100 Balance 770 242 -1280 1301 Meds/Results Medications: Active Medications Generic Name Dose Route Start Last Admin Trade Name Freq PRN Reason Stop Dose Admin Acetaminophen 650 mg 04/25/25 09:18 04/29/25 22:31 Acetaminophen 325 Mg Tablet PO 650 mg Q6H PRN Administration Mild Pain (1-3) or Fever Hydrocodone Bitart/Acetaminophen 1 tab 04/25/25 09:49 05/03/25 08:39 Hydrocodone/Acetaminophen (*Crx) 5-325 Mg Tablet PO 1 tab Q8H PRN Administration pain 4-6 Albuterol 1 puff 04/25/25 09:31 Albuterol Sulfate (*Sp) Aerosol 1 Puff INHALATION TIDRT PRN Shortness Of Breath Artificial Tears 1 drop 04/25/25 09:16 Artificial Tears Ophth Soln 15 Ml Bottle EACH EYE QID PRN Dry Eye(S) Baclofen 10 mg 04/26/25 13:00 05/03/25 14:54 Baclofen 10 Mg Tablet PO 10 mg Q8HR [facility] Administration Citalopram Hydrobromide 10 mg 04/25/25 09:30 05/03/25 08:40 Citalopram Hydrobromide 10 Mg Tablet PO 10 mg QAM [facility] Administration Duloxetine HCl 30 mg 04/25/25 09:30 05/03/25 08:39 Duloxetine Hcl 30 Mg Capsule.Dr PO 30 mg Q12HR [facility] Administration Folic Acid 1 mg 04/25/25 09:30 05/03/25 08:40 Folic Acid 1 Mg Tablet PO 1 mg DAILY [facility] Administration Levothyroxine Sodium 50 mcg 04/25/25 09:30 05/03/25 05:58 Levothyroxine Sodium 50 Mcg Tablet PO 50 mcg DAILY@0630 [facility] Administration Lidocaine 1 patch 04/25/25 21:00 05/02/25 20:26 Lidocaine 5% Patch TRANSDERM Not Given HS [facility] Lisinopril 20 mg 04/25/25 09:30 05/03/25 08:40 Lisinopril 20 Mg Tablet PO 20 mg DAILY [facility] Administration Lorazepam 0.5 mg 04/28/25 08:38 05/02/25 22:49 Lorazepam (*Crx) 0.5 Mg Tablet PO 0.5 mg BID PRN Administration Anxiety Multivitamins Therapeutic 1 tablet 04/25/25 09:30 05/03/25 08:40 Multivitamins Therapeutic Tab (*Bkc) PO 1 tablet DAILY [facility] Administration Polysaccharide Iron Complex 150 mg 04/28/25 08:00 05/03/25 08:39 Polysaccharide Iron Complex 150 Mg Capsule PO 150 mg DAILY@0800 [facility] Administration Pregabalin 150 mg 04/25/25 09:30 05/03/25 14:54 Pregabalin (*Crx) 75 Mg Capsule PO 150 mg TID [facility] Administration Prochlorperazine Edisylate 10 mg 04/25/25 09:18 Prochlorperazine Edisylate 10 Mg/2 Ml Vial IV PUSH Q6H PRN Nausea And Vomiting Simethicone 1.8 ml 04/26/25 14:19 04/26/25 14:20 Simethicone Oral Suspension 20 Mg/0.3 Ml 30 Ml Bottle PO 1.8 ml ONCE PRN Administration Gas Discomfort Vitamin B Complex 1 cap 05/02/25 09:00 05/03/25 08:40 Vitamin B Complex Capsule PO 1 cap QAM [facility] Administration Radiology Results: ITS Impressions Abdomen/Pelvis CTA 04/25/25 06:27 Impression: No significant abnormalities seen. Labs Labs: Laboratory Results - last 24 hr 05/03/25 05:58 WBC 6.5 RBC 2.89 L Hgb 8.7 L Hct 26.7 L MCV 92.4 MCH 30.1 MCHC 32.6 RDW 16.4 H Plt Count 205 MPV 11.6 H Immature Gran % (Auto) 0.5 Neut % (Auto) 62.1 Lymph % (Auto) 26.7 [place]ake % (Auto) 8.6 H Eos % (Auto) 1.5 Baso % (Auto) 0.6 Lymph # (Auto) 1.73 [place]ake # (Auto) 0.6 Eos # (Auto) 0.1 Baso # (Auto) 0.0 Abs Immat Gran (auto) 0.03 Absolute Neuts (auto) 4.0 Absolute Nucleated RBC 0.000 Nucleated RBC % 0.0 Sodium 137 Potassium 3.7 Chloride 101 Carbon Dioxide 28 Anion Gap 8 BUN 19 Creatinine 0.63 L Estim Creat Clear Calc 121 Estimated GFR > 60 Glucose 101 Calcium 9.7 Quality VTE Prophylaxis VTE prophylaxis: mechanical ordered
[2025-05-04] VITALS (8 sets, daily range): BP systolic 101–115; BP diastolic 73–89; PULSE 85–98; RESP 14–18; TEMP 36.2–36.8; O2SAT 96–99
[2025-05-04 06:17] LABS: Hematocrit 29.5 % (42.0-52.0); Hemoglobin 9.3 g/dL (14.0-18.0); Immature Granulocyte Percent A 0.3 % (0-0.5); Lymphocytes Absolute Auto 1.80 K/mm3 (0.9-3.2); Mean Corpuscular HGB Conc 31.5 g/dl (32-36); Mean Corpuscular Hemoglobin 29.7 pg (26-34); Mean Corpuscular Volume 94.2 fl (80-100); Nucleated Red Blood Cells Absolute Auto 0.000 K/mm3 (0.0-0.012); Nucleated Red Blood Cells Perc 0.0 % (0.0-0.2); Platelet Count Result 220 k/mm3 (150-375); Red Blood Count 3.13 M/mm3 (4.6-6.20); White Blood Count 6.6 K/mm3 (4.5-10.0)
[2025-05-04] MEDS: BACLOFEN 10 MG TABLET PO ×3 (06:27→21:03)
[2025-05-04] MEDS: LEVOTHYROXINE SODIUM 50 MCG TABLET PO (06:27)
[2025-05-04] MEDS: HYDROcodone/acetaminophen (*CRX) 5-325 MG TABLET 1 TAB PO ×3 (06:27→21:03)
[2025-05-04 06:31] LABS: Anion Gap 8 mmol/L (4-12); Blood Urea Nitrogen 19 mg/dL (9-20); Calcium 9.7 mg/dL (8.4-10.2); Carbon Dioxide 29 mmol/L (22-30); Chloride 101 mmol/L (98-107); Estimated CRCL calculation 133 ml/min; Estimated Glomerular Filt Rate > 60; Glucose 105 mg/dL (65-110); Potassium 3.7 mmol/L (3.4-5.0); Sodium 138 mmol/L (137-145)
[2025-05-04] MEDS: CITALOPRAM HYDROBROMIDE 10 MG TABLET PO (10:10)
[2025-05-04] MEDS: FOLIC ACID 1 MG TABLET PO (10:10)
[2025-05-04] MEDS: PREGABALIN (*CRX) 75 MG CAPSULE 150 MG PO ×3 (10:22→17:14)
[2025-05-04] MEDS: MULTIVITAMINS THERAPEUTIC TAB (*BKC) 1 TABLET PO (10:22)
[2025-05-04] MEDS: VITAMIN B COMPLEX CAPSULE 1 CAP PO (10:22)
[2025-05-04] MEDS: LORazepam (*CRX) 0.5 MG TABLET PO ×2 (13:09→22:34)
--- NOTE | 2025-05-04 14:38 | P.PNIM_ITS ---
Progress Note: A&P Assessment and Plan (1) GI bleed: Code(s): K92.2 - Gastrointestinal hemorrhage, unspecified Status: Acute Assessment and Plan: 04/26 EGD negative 04/27 Colonoscopy showed: A single superficial stellate 8 mm ulcer was visualized in the rectum at approximately 5 cm above the anal margin. The ulcer had a visible vessel present. The ulcer had a large blood clot present which was removed with a cold snare. The ulcer was actively bleeding (arterial spurting). The lesion was cauterized with BICAP. The cauterization was successful. Two Resolution Clip clip were placed successfully for hemostasis. Acute blood loss with H&H 12.4/37.3>9.1/28.1>6.6/21. 6/ Taken back for a colonoscopy and clip placed for active bleeding. PLAN * GI consulted, appreciate recommendations. Advanced diet to regular * s/p 1 unit of PRBC's 04/28, and 1 unit 04/30 * Pantoprazole 40 mg IVP q12. * Serial CBC. Current H&H lower, 7.5/23.1>7.2/21.6>6./ * s/p 1000ml fluids (2) Chronic alcoholic liver disease: Code(s): K70.9 - Alcoholic liver disease, unspecified Status: Acute Assessment and Plan: * CIWA monitoring. Patient denies any alcohol use since before the prior admission, over a month ago. ETOH level was 0 03/30 * Encourage to abstain from alcohol. * AST 52>40>34,ALT 65>50>37, alkaline phosphatase 96>78>60. (3) Anemia: Code(s): D64.9 - Anemia, unspecified Status: Acute Assessment and Plan: See GI bleeding as above * Monitor serial CBC's & bleeding * Transfuse for Hgb <7 if patient agreeable. Consented for blood (4) Generalized weakness: Code(s): R53.1 - Weakness Status: Acute Assessment and Plan: * Restart PT/OT once there is no further bleeding. (5) Peripheral neuropathy: Code(s): G62.9 - Polyneuropathy, unspecified Status: Acute Assessment and Plan: Significant neuropathy in the last month. Was discharged to home last month and quit drinking but had progressive symptoms after he stopped drinking. Is now unable to walk and having difficult with fine motor skills, dropping items, signficant numbness and tingling in arms and legs. Denies vision changes. 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 B12 783 03/30/25. TSH normal. Hepatitis C negative. [place]/sunshine free light chains ratio 1.05. Total IgM 348 * s/p IV thiamine 500mg q8 x3. Continue thiamine 100 mg PO daily. * B6, Copper, Vitamin E, heavy metals pending * Lyrica 150 mg PO TID. * Consulted neurology. Appreciate recommendations (6) Muscle spasm: Code(s): M62.838 - Other muscle spasm Status: Acute Assessment and Plan: * Increased Baclofen 10 mg PO TID. (7) Severe protein-calorie malnutrition: Code(s): E43 - Unspecified severe protein-calorie malnutrition Status: Acute Assessment and Plan: * Patient was just discharged 04/21, pellet mill operator team followed during long stay for appetite. Patient was not eating solid food, mostly only drinking Ensure. * Add Ensure TID. * Meets criteria for severe malnutrition. Lost 20 lbs during recent hospitalization. 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 Symptom resolved without treatment and no hives/rash --Stopped Vanc, started nitrofurantoin 100 BID x5 days--to 05/03 Plan patient denies any bleeding, working with PT, will monitor. patient denies any bleeding and working with PT, patient wants to participate 1 more day with PT and will discharge tomorrow. Likely discharge to SNF tomorrow if no further bleeding Subjective Date/time seen: 05/04/25 14:38 Interval history: Vital signs and labs stable overnight CBC stable. Tolerating diet. patient denies any bleeding and working with PT, patient wants to participate 1 more day with PT and will discharge tomorrow. Likely discharge to SNF tomorrow if no further bleeding Review of Systems Review of Systems: All systems reviewed & are unremarkable except as noted in HPI and below Exam Narrative: Patient is comfortable, NAD HEENT: eyes are clear and none icteric LUNGS:CTA HEART: RR S1S2 ABD: BS+, Soft and nontender Lower extremities: no edema SKIN: nonjaundiced Neuro: grossly intact. Objective Data Vital Signs Vital Signs: Vital Signs - 24 hr 05/03/25 16:00 05/03/25 20:00 05/03/25 20:00 Temperature Pulse Rate 98 101 H Respiratory Rate Blood Pressure Pulse Oximetry Oxygen Delivery Room Air Fraction of Inspired Oxygen 05/03/25 20:28 05/04/25 00:00 05/04/25 04:00 Temperature 36.4 C Pulse Rate 100 90 91 Respiratory Rate 18 Blood Pressure 97/72 L Pulse Oximetry 99 Oxygen Delivery Fraction of Inspired Oxygen 05/04/25 05:30 05/04/25 07:47 05/04/25 07:47 Temperature 36.3 C L Pulse Rate 85 85 85 Respiratory Rate 16 16 Blood Pressure 113/89 Pulse Oximetry 99 99 Oxygen Delivery Room Air Fraction of Inspired Oxygen 21 05/04/25 14:00 Temperature 36.2 C L Pulse Rate 85 Respiratory Rate 14 Blood Pressure 101/73 Pulse Oximetry 98 Oxygen Delivery Fraction of Inspired Oxygen Intake/Output Intake/Output: Intake & Output 05/01/25 05/02/25 05/03/25 05/04/25 23:59 23:59 23:59 23:59 Intake Total 7740 797 0008 480 Output Total 1350 2100 1000 300 Balance 242 -1280 421 180 Meds/Results Medications: Active Medications Generic Name Dose Route Start Last Admin Trade Name Freq PRN Reason Stop Dose Admin Acetaminophen 650 mg 04/25/25 09:18 04/29/25 22:31 Acetaminophen 325 Mg Tablet PO 650 mg Q6H PRN Administration Mild Pain (1-3) or Fever Hydrocodone Bitart/Acetaminophen 1 tab 04/25/25 09:49 05/04/25 13:09 Hydrocodone/Acetaminophen (*Crx) 5-325 Mg Tablet PO 1 tab Q8H PRN Administration pain 4-6 Albuterol 1 puff 04/25/25 09:31 Albuterol Sulfate (*Sp) Aerosol 1 Puff INHALATION TIDRT PRN Shortness Of Breath Artificial Tears 1 drop 04/25/25 09:16 Artificial Tears Ophth Soln 15 Ml Bottle EACH EYE QID PRN Dry Eye(S) Baclofen 10 mg 04/26/25 13:00 05/04/25 13:09 Baclofen 10 Mg Tablet PO 10 mg Q8HR [facility] Administration Citalopram Hydrobromide 10 mg 04/25/25 09:30 05/04/25 10:10 Citalopram Hydrobromide 10 Mg Tablet PO 10 mg QAM [facility] Administration Duloxetine HCl 30 mg 04/25/25 09:30 05/04/25 10:10 Duloxetine Hcl 30 Mg Capsule.Dr PO 30 mg Q12HR [facility] Administration Folic Acid 1 mg 04/25/25 09:30 05/04/25 10:10 Folic Acid 1 Mg Tablet PO 1 mg DAILY [facility] Administration Levothyroxine Sodium 50 mcg 04/25/25 09:30 05/04/25 06:27 Levothyroxine Sodium 50 Mcg Tablet PO 50 mcg DAILY@0630 [facility] Administration Lidocaine 1 patch 04/25/25 21:00 05/03/25 20:50 Lidocaine 5% Patch TRANSDERM Not Given [facility] Lisinopril 20 mg 04/25/25 09:30 05/04/25 10:22 Lisinopril 20 Mg Tablet PO 20 mg DAILY [facility] Administration Lorazepam 0.5 mg 04/28/25 08:38 05/04/25 13:09 Lorazepam (*Crx) 0.5 Mg Tablet PO 0.5 mg BID PRN Administration Anxiety Miscellaneous Information 1 each 05/04/25 00:01 Pregabalin Needs To Be Renewed Or It Will Automatically Discontinue 05/05. XX 06/03/25 00:00 [facility]IFY [facility] Miscellaneous Information 1 each 05/04/25 00:01 [place] Needs To Be Renewed Or It Will Automatically Discontinue. XX 06/03/25 00:00 CLARIFY [facility] Multivitamins Therapeutic 1 tablet 04/25/25 09:30 05/04/25 10:22 Multivitamins Therapeutic Tab (*Bkc) PO 1 tablet DAILY [facility] Administration Polysaccharide Iron Complex 150 mg 04/28/25 08:00 05/04/25 10:10 Polysaccharide Iron Complex 150 Mg Capsule PO 150 mg DAILY@0800 [facility] Administration Pregabalin 150 mg 04/25/25 09:30 05/04/25 13:08 Pregabalin (*Crx) 75 Mg Capsule PO 150 mg TID [facility] Administration Prochlorperazine Edisylate 10 mg 04/25/25 09:18 Prochlorperazine Edisylate 10 Mg/2 Ml Vial IV PUSH Q6H PRN Nausea And Vomiting Simethicone 1.8 ml 04/26/25 14:19 04/26/25 14:20 Simethicone Oral Suspension 20 Mg/0.3 Ml 30 Ml Bottle PO 1.8 ml ONCE PRN Administration Gas Discomfort Vitamin B Complex 1 cap 05/02/25 09:00 05/04/25 10:22 Vitamin B Complex Capsule PO 1 cap QAM [facility] Administration Radiology Results: ITS Impressions Abdomen/Pelvis CTA 04/25/25 06:27 Impression: No significant abnormalities seen. Labs Labs: Laboratory Results - last 24 hr 05/04/25 06:03 WBC 6.6 RBC 3.13 L Hgb 9.3 L Hct 29.5 L MCV 94.2 MCH 29.7 MCHC 31.5 L RDW 16.7 H Plt Count 220 MPV 11.2 H Immature Gran % (Auto) 0.3 Neut % (Auto) 61.3 Lymph % (Auto) 27.2 [place]on % (Auto) 8.5 Eos % (Auto) 2.1 Baso % (Auto) 0.6 Lymph # (Auto) 1.80 [place]on # (Auto) 0.6 Eos # (Auto) 0.1 Baso # (Auto) 0.0 Abs Immat Gran (auto) 0.02 Absolute Neuts (auto) 4.1 Absolute Nucleated RBC 0.000 Nucleated RBC % 0.0 Sodium 138 Potassium 3.7 Chloride 101 Carbon Dioxide 29 Anion Gap 8 BUN 19 Creatinine 0.57 L Estim Creat Clear Calc 133 Estimated GFR > 60 Glucose 105 Calcium 9.7 Quality VTE Prophylaxis VTE prophylaxis: mechanical ordered
[2025-05-04 15:02] LABS: Lead, Blood <1.0 mcg/dL (<3.5)
[2025-05-04 21:04] LABS: Copper. 118 mcg/dL (70-175)
[2025-05-04 22:49] LABS: Arsenic, Blood <10 mcg/L (<23); Mercury, Blood <5 mcg/L (<OR=10)
[2025-05-05] VITALS: PULSE 95
[2025-05-05 04:00] VITALS: PULSE 89
[2025-05-05] MEDS: BACLOFEN 10 MG TABLET PO ×2 (05:45→14:00)
[2025-05-05] MEDS: HYDROcodone/acetaminophen (*CRX) 5-325 MG TABLET 1 TAB PO ×2 (05:45→14:40)
[2025-05-05] MEDS: LEVOTHYROXINE SODIUM 50 MCG TABLET PO (05:45)
[2025-05-05 06:00] VITALS: BP 117/91; PULSE 91; RESP 18; TEMP 36.7; O2SAT 99
[2025-05-05 08:00] VITALS: PULSE 90
[2025-05-05] MEDS: MULTIVITAMINS THERAPEUTIC TAB (*BKC) 1 TABLET PO (08:04)
[2025-05-05] MEDS: VITAMIN B COMPLEX CAPSULE 1 CAP PO (08:04)
[2025-05-05] MEDS: FOLIC ACID 1 MG TABLET PO (08:04)
[2025-05-05] MEDS: PREGABALIN (*CRX) 75 MG CAPSULE 150 MG PO ×3 (08:04→17:40)
[2025-05-05] MEDS: CITALOPRAM HYDROBROMIDE 10 MG TABLET PO (08:05)
[2025-05-05] MEDS: LORazepam (*CRX) 0.5 MG TABLET PO (08:32)
[2025-05-05 12:00] VITALS: PULSE 100
--- NOTE | 2025-05-05 12:54 | PM.DS ---
DS: Admitting Diagnosis Discharge Date 05/05 Admitting Diagnosis GI bleed DS: Discharge Diagnosis Discharge Diagnosis (1) GI bleed: Code(s): K92.2 - Gastrointestinal hemorrhage, unspecified Status: Acute Assessment and Plan: 04/26 EGD negative 04/27 Colonoscopy showed: A single superficial stellate 8 mm ulcer was visualized in the rectum at approximately 5 cm above the anal margin. The ulcer had a visible vessel present. The ulcer had a large blood clot present which was removed with a cold snare. The ulcer was actively bleeding (arterial spurting). The lesion was cauterized with BICAP. The cauterization was successful. Two Resolution Clip clip were placed successfully for hemostasis. Acute blood loss with H&H 12.4/37.3>9.1/28.1>6.6/21. 6/ Taken back for a colonoscopy and clip placed for active bleeding. PLAN GI consulted, appreciate recommendations. Advanced diet to regular s/p 1 unit of PRBC's 04/28, and 1 unit 04/30 Pantoprazole 40 mg IVP q12. Serial CBC. Current H&H lower, 7.5/23.1>7.2/21.6>6./20 s/p 1000ml fluids (2) Chronic alcoholic liver disease: Code(s): K70.9 - Alcoholic liver disease, unspecified Status: Acute Assessment and Plan: CIWA monitoring. Patient denies any alcohol use since before the prior admission, over a month ago. ETOH level was 0 03/30 Encourage to abstain from alcohol. AST 52>40>34,ALT 65>50>37, alkaline phosphatase 96>78>60. (3) Anemia: Code(s): D64.9 - Anemia, unspecified Status: Acute Assessment and Plan: See GI bleeding as above Monitor serial CBC's & bleeding Transfuse for Hgb <7 if patient agreeable. Consented for blood (4) Generalized weakness: Code(s): R53.1 - Weakness Status: Acute Assessment and Plan: Restart PT/OT once there is no further bleeding. (5) Peripheral neuropathy: Code(s): G62.9 - Polyneuropathy, unspecified Status: Acute Assessment and Plan: Significant neuropathy in the last month. Was discharged to home last month and quit drinking but had progressive symptoms after he stopped drinking. Is now unable to walk and having difficult with fine motor skills, dropping items, signficant numbness and tingling in arms and legs. Denies vision changes. 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 B12 783 03/30/25. TSH normal. Hepatitis C negative. [place]/sunshine free light chains ratio 1.05. Total IgM 348 s/p IV thiamine 500mg q8 x3. Continue thiamine 100 mg PO daily. B6, Copper, Vitamin E, heavy metals pending Lyrica 150 mg PO TID. Consulted neurology. Appreciate recommendations (6) Muscle spasm: Code(s): M62.838 - Other muscle spasm Status: Acute Assessment and Plan: Increased Baclofen 10 mg PO TID. (7) Severe protein-calorie malnutrition: Code(s): E43 - Unspecified severe protein-calorie malnutrition Status: Acute Assessment and Plan: Patient was just discharged 04/21, metal numerical tool programmer team followed during long stay for appetite. Patient was not eating solid food, mostly only drinking Ensure. Add Ensure TID. Meets criteria for severe malnutrition. Lost 20 lbs during recent hospitalization. 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 Started on Vancomycin but reporting throat swelling/tightness so added as a possible allergy. Symptom resolved without treatment and no hives/rash --Stopped Vanc, started nitrofurantoin 100 BID x5 days--to 05/03 Plan patient denies any bleeding, working with PT, will monitor. patient denies any bleeding and working with PT, patient wants to participate 1 more day with PT and will discharge tomorrow. Likely discharge to SNF tomorrow if no further bleeding DS: Summary Hospital Course Hospital Course: patient is 49 y/o male with history of alcohol abused was discharge to rehab after treated for alcohol abused and withdrawal to rehab, patient presented with rectal bleeding and was seen by GI had a colonoscopy which showed 8mm ulcer was found in the rectum, and lesion was cauterized and it stopped the bleeding however did have another episode and sigmoidoscopy which did show a single superficial ulcer in the rectum and two clips were placed applied Nexpowder to the ulcer bed and there was good sealing. patient remains clinically stable there is no more bleeding, patient is participating in PT, will discharge patient to [facility] today. Time Spent with Patient Time attestation: Total time spent providing and/or coordinating discharge services: Exam Narrative: Patient is comfortable, NAD HEENT: eyes are clear and none icteric LUNGS:CTA HEART: RR S1S2 ABD: BS+, Soft and nontender Lower extremities: no edema SKIN: nonjaundiced Neuro: grossly intact. DS: Data Data Completed and Pending Labs on day of discharge: Labs from last 24 hours 04/30/25 15:43 Copper 118 Whole Blood Arsenic <10 Whole Blood Lead <1.0 WB Mercury ug/L <5 Discharge Plan Discharge Attending physician on discharge: Marya Gay Consulting providers: Marya Gay; Jonathan Leyva; Avni Sampson; Linda Rodríguez; Raulito Gibbs; Cassius De Jesus Jr.; Denis Rausch; Mckay Funez; Rodriguez Shipley; Jesus Hanley Discharging Clinician: Lul Hector Patient Disposition: Hospital Swing Bed Activity: as tolerated Diet: heart healthy Discharge Instructions: patient to follow up with his primary care provider as soon as possible. Patient Instructions: Antibiotic Form Patient Language: Citizen Of [place] Stand Alone Forms: General Discharge Information Discharge Medications: New polyethylene glycol 3350 [Miralax] 17 gram Powder In Packet 17 g PO QAM PRN (Reason: Constipation) Qty: 30 0RF polysaccharide iron complex 150 mg iron Capsule 150 mg PO DAILY@0800 Qty: 30 0RF lorazepam 0.5 mg Tablet 0.5 mg PO BID PRN (Reason: Anxiety) Qty: 10 0RF lidocaine [Lidoderm] 5 % Adhesive Patch,Medicated 1 patch transdermal HS Qty: 15 0RF simethicone [Infants Gas Relief] 40 mg/0.6 mL Drops,Suspension 1.8 ml PO ONCE PRN (Reason: Gas Discomfort) Qty: 5 0RF vitamin B complex [Vitamins B Complex] Capsule 1 cap PO QAM Qty: 90 0RF Continued lisinopril 20 mg tablet 20 mg PO DAILY Patient Comments: Patient reports he has not been taking it as he should albuterol 90 mcg/actuation Aerosol 90 mcg INHALATION TID PRN (Reason: Shortness Of Breath) omeprazole 20 mg tablet,delayed release (DR/EC) 20 mg PO DAILY Qty: 60 0RF folic acid 1 mg tablet 1 mg PO DAILY levothyroxine 50 mcg tablet 50 mcg PO DAILY thiamine HCl (vitamin B1) [Vitamin B-1] 100 mg Tablet 100 mg PO QAM 30 Days Qty: 30 1RF citalopram [Celexa] 20 mg Tablet 10 mg PO QAM 30 Days Qty: 15 1RF bisacodyl [Laxative (bisacodyl)] 5 mg Tablet,Delayed Release (Dr/Ec) 5 mg PO QAM 30 Days Qty: 30 0RF Artificial Tears(sq-aawj-xkcp) 1-0.2-0.2 % Drops 1 drp EACH EYE QID PRN (Reason: Dry Eye(S)) 30 Days Qty: 15 0RF duloxetine [Cymbalta] 30 mg Capsule,Delayed Release(Dr/Ec) 30 mg PO Q12HR 30 Days Qty: 60 1RF pregabalin [Lyrica] 75 mg Capsule 150 mg PO TID 30 Days Qty: 180 1RF multivitamin Tablet 1 tablet PO DAILY Qty: 30 1RF methocarbamol 750 mg tablet 750 mg PO TID PRN (Reason: muscle spasm) Qty: 14 0RF hydrocodone-acetaminophen 5-325 mg tablet 1 tablet PO Q8H PRN (Reason: pain) Qty: 7 0RF baclofen 5 mg tablet 5 mg PO TID Date of admission: 04/27/25 15:34 Primary Care Provider: Fareed Nuñez Admitting Provider: Daina Galicia Attending physician on admission: Lul Hector Condition: Stable
--- NOTE | 2025-05-05 13:22 | PCPTNOTE ---
Patient declined PT this afternoon. Patient states he is constantly having bowel movements this afternoon. Patient declined LE exercises and mobility training. PT will continue to follow.
[2025-05-05 15:20] VITALS: BP 102/69; PULSE 99; RESP 16; TEMP 36.1; O2SAT 99
[2025-05-05 15:28] LABS: Vitamin B6. 22.0 ng/mL (2.1-21.7)
== END 2025-05-05 19:24 | disposition swing bed (61) | DRG 254 ==
LOC: ANHED 06:05 → ANH3MEDSUR 08:50
PROVIDERS: Internal Medicine Gastroenterology; Nurse Practitioner Acute Care; Nurse Practitioner Family; Physician Assistant; Student in an Organized Health Care Education/Training Program; Admitting Provider Internal Medicine; Emergency Provider Emergency Medicine; Visit Provider Family Medicine
PROC: 0DJ08ZZ Inspection of Upper Intestinal Tract, Via Natural or Artificial Opening Endoscopic (ICD-10-PCS; principal; 2025-04-26 14:45)
PROC: 0DJD8ZZ Inspection of Lower Intestinal Tract, Via Natural or Artificial Opening Endoscopic (ICD-10-PCS; CPT 45378; principal; 2025-04-27 15:00)
DX: K62.6 Ulcer of anus and rectum (principal); K62.5 Hemorrhage of anus and rectum; D62 Acute posthemorrhagic anemia; K70.9 Alcoholic liver disease, unspecified; G62.9 Polyneuropathy, unspecified; F10.20 Alcohol dependence, uncomplicated; K44.9 Diaphragmatic hernia without obstruction or gangrene; K29.30 Chronic superficial gastritis without bleeding; E43 Unspecified severe protein-calorie malnutrition; N39.0 Urinary tract infection, site not specified; B95.7 Other staphylococcus as the cause of diseases classified elsewhere; E87.1 Hypo-osmolality and hyponatremia; I10 Essential (primary) hypertension
CPT/HCPCS: 36415; 36430; 74174; 80048; 80053; 81001; 82175; 82306; 82525; 82550; 82565; 82948; 83605; 83655; 83690; 83735; 83825; 84100; 84207; 84446; 85014; 85018; 85025; 85610; 85652; 85730; 86850; 86900; 86901; 86923; 87086; 87181; 93005; 96361; 96374; 97110; 97112; 97162; 97166; 97530; 97535; 99285; A9270; G0378; J0330; J2003; J2470; J2704; J3370; J3411; J3475; J7030; J7040; J7050; J7120; P9016; Q9967

== ENCOUNTER 2025-06-05 13:16 | Inpatient (IN) | payer OTHER, SELFPAY ==
[2025-06-05] VITALS (11 sets, daily range): BP systolic 112–131; BP diastolic 82–97; PULSE 76–89; RESP 13–17; TEMP 36.1–36.8; O2SAT 97–99; BMI 25.2
--- NOTE | ~2025-06-05 | MR_ITS ---
MRI of the brain Clinical History: Altered mental status Technique: Axial and sagittal T1-weighted images were acquired. These were followed by axial T2-weigh marky, diffusion weighted, gradient, and FLAIR images. COMPARISON: 03/31/2025 Findings: No significant signal abnormality seen in the brain parenchyma. No acute infarct, intracran ial hemorrhage or mass lesion. Ventricles and subarachnoid spaces are unremarkable. Orbits are unremarkable. The nasal sinuses and m astoid air cells are clear. Major intracranial flow voids appear intact. Sagittal midline structures are intact. IMPRESSION: No significant abnormality seen. Reviewed, dictated and finalized at location .
--- NOTE | ~2025-06-05 | CT_ITS ---
EXAMINATION: CT brain wo con DATE: 06/05/2025 14:03 INDICATION: AMS, possible wernicke's . TECHNIQUE: Computed tomography (CT) of the head was performed without intravenous contrast. The mA wa s adjusted according to patient size. Iterative reconstruction technique was employed. The dose-lengt h product was 605.33 mGy-cm. COMPARISON: 03/30/25. FINDINGS: No acute intracranial hemorrhage or extra-axial fluid collection. No hydrocephalus, mass, or herniation. No acute ischemic infarct. Unremarkable dural venous sinus attenuation. No acute osseous abnormality. The aerated spaces are clear. IMPRESSION: No acute intracranial process. Reviewed, dictated and finalized at location K.
--- NOTE | ~2025-06-05 | XR_ITS ---
EXAMINATION: XR chest 2V Exam Date/Time: 06/05/2025 19:12 CDT HISTORY: Confusion Comparison: 03/30/2025. RESULT: Lines, tubes, and devices: None. Lungs and pleura: Low volumes with crowding. Streaky left basilar scar/atelectasis. Cardiomediastinal silhouette: Stable. Other: No acute osseous or upper abdominal finding. IMPRESSION: No acute cardiopulmonary process. Reviewed, dictated and finalized at location K.
--- NOTE | 2025-06-05 13:21 | ECG_ITS ---
Test Date: 2025-06-05 13:23:49 Measurements Intervals [place] Rate: 79 P: 26 LA: 172 QRS: -14 QRSD: 105 T: 10 QT: 375 QTc: 431 Interpretive Statements SINUS RHYTHM DELAYED PRECORDIAL R/S TRANSITION BASELINE ARTIFACT- I, II, III, AVR, AVL, AVF, V1-V6 BORDERLINE ECG Compared to ECG 04/29/2025 20:32:08 No significant changes Electronically Signed On 06-05-2025 14:43:43 CDT by Rodriguez Shipley D.O.
[2025-06-05 13:33] LABS: Hematocrit 34.8 % (42.0-52.0); Hemoglobin 11.2 g/dL (14.0-18.0); Immature Granulocyte Percent A 0.2 % (0-0.5); Lymphocytes Absolute Auto 1.69 K/mm3 (0.9-3.2); Mean Corpuscular HGB Conc 32.2 g/dl (32-36); Mean Corpuscular Hemoglobin 28.2 pg (26-34); Mean Corpuscular Volume 87.7 fl (80-100); Nucleated Red Blood Cells Absolute Auto 0.000 K/mm3 (0.0-0.012); Nucleated Red Blood Cells Perc 0.0 % (0.0-0.2); Platelet Count Result 226 k/mm3 (150-375); Red Blood Count 3.97 M/mm3 (4.6-6.20); White Blood Count 6.0 K/mm3 (4.5-10.0)
--- OUTSIDE RECORDS SUMMARY | 2025-06-05 13:37 | XMS_ITS | Clinical Summary ---
Author Organization [facility] Address [address] [place] [address] Care Team Providers Care Parcel Wrapper Name Role Phone Fareed Nuñez MD Primary [...] often do you attend chur ch or christianity services? Never 03/05/2023 Do you belong to any clubs o r organizations such as buddhist groups, unions, fraternal or athletic groups, or [...] No 03/05/2023 Housing Stability Vital Sign Answer Emri e Recorded In the last 12 months, [...] place to sleep or slept in a skilled nursing (including now)? No 03/05/2023 Personal Safety Answer Date Recorded Have you ever been in or are you currently in a harmful physical or emotional relationship or is someone making you feel afraid or unsafe? 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 Gender Identity Male 02/01/2021 8:24 AM CDT [...] Cancer Screening-Colonoscopy 1975 Hepatitis C Screening 1975 Prostate Cancer Screening-PSA 1975 Hepatitis B Screening 1993 Regular Well Visit/Exam 18-64 1993 Pneumococcal vaccine <65 (1 of 2 - PCV) 1994 Depression Screening 08/18/2019 08/18/2018, 07/25/2018, 07/30/2017 Covid-19 Vaccine (3 - 4-2 5 season) 2024 03/01/2021, 02/08/2021 Zoster Vaccine (1 of 2) 2025 Influenza Vaccine (#1) 2025 , 07/25/2018, 07/30/2017, Additional history exists DTaP/Tdap/Td Vaccine (3 - Td or Tdap) 02/23/2033 02/23/2023, 06/04/2017 Insurance [employer] OOS IDPA [facility] [place] [id number] IDPA Advance Directives For more information, please contact: [phone] * Full Code (Latest Code Status on File) Date Activated Date Inactivated Comments 03/04/2023 12:03 AM 03/07/2023 6:49 PM Care Teams Parcel Wrapper Relationship Specialty Start Date End Date Fareed Nuñez MD [address] [facility] [address] [place] [address] PCP - General Family Medicine 03/18/23
--- OUTSIDE RECORDS SUMMARY | 2025-06-05 13:37 | XMS_ITS | Clinical Summary ---
Author Organization [facility] Address [address] [place] [address] Care Team Providers Care Sand Analyst Name Role Phone Unavailable Primary Care Provider [...]
--- OUTSIDE RECORDS SUMMARY | 2025-06-05 13:37 | XMS_ITS | Referral Summary ---
Author Organization [facility] Address [address] [place] [address] Care Team Providers Care Automobile Inspector Name Role Phone Fareed Nuñez MD Primary [...] often do you attend chur ch or taoism services? Never 03/05/2023 Do you belong to any clubs o r organizations such as christian groups, unions, fraternal or athletic groups, or [...] place to sleep or slept in a fdc (including now)? No 03/05/2023 Personal Safety Answer Date Recorded Have you ever been in or are you currently in a harmful physical or emotional relationship or is someone making you feel afraid or unsafe? 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
--- OUTSIDE RECORDS SUMMARY | 2025-06-05 13:37 | XMS_ITS | Encounter Summary ---
Author Organization [facility] Address [address] [place] [address] Care Team Providers Care U.[place]. Representative Name Role Phone Unavailable Primary Care Provider Unavailabl e Prior Encounters Date Type Department Care Team Description 11/23/2019 Converted 13x Documents [facility] [address] [place] [id number] <No scans attached> Plan of Treatment Not on file Visit Diagnoses Not on file
--- OUTSIDE RECORDS SUMMARY | 2025-06-05 13:37 | XMS_ITS | Encounter Summary ---
Author Organization [facility] Address [facility] [place] [address] Care Team Providers Care Box Sealing Machine Operator Name Role Phone Darryl Hanson MD Primary Care Provider [phone] Diogenes Stuart MD Unavailable [phone] Fabienne Miller MD Primary Care Provider [phone] Pravin Crowe DO Unavailable [phone] Thong Demarco MD Unavailable [phone] Fareed Nuñez MD Primary Care Provider Fareed Nuñez MD Unavailable [phone] Fareed Nuñez MD Unavailable [phone] Fareed Nuñez MD Unavailable [phone] Zafar [place] MD Unavailable [phone] Fabienne Miller MD Unavailable Encounter Details [...] PM CDT 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 Gender Identity Male 05/22/2018 10:53 AM CDT Sexual Orientation Straight 08/30/2021 12 :31 PM CDT 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 file Not on file Not on file documented as of this encounter Plan of Treatment Not on file documented as of this encounter Visit Diagnoses Not on filedocumented in this encounter Care Teams Box Sealing Machine Operator Relationship Specialty Start Date End Date Darryl Hanson MD [address] [place] [address] PCP - General 11/21/10 04/10/15 [place] [address] [place] [address] [address] [place] [address] PCP - General Family Medicine 05/10/15 12/18/16 Fareed Nuñez MD [address] [place] [address] PCP - General Family Medicine 07/22/19 Fareed Nuñ[place] [address] [place] [address] PCP - Attributed-[employer] 02/03/20 1 Fareed Nuñez [place] [address] [place] [address] PCP - Attributed-[employer] 03/04/21 10/19/21 Fareed Nuñez MD [address] [place] [address] PCP - Attributed-[employer] 05/04/22 05/21/23 Fabienne Miller MD [address] [facility] [address] [place] [address] PCP - Attributed-[facility] Commercial 03/21/19 03/21/19 Diogenes Stuart MD [address] [facility] [place] [place] [address] Neurological Surgery 03/10/13 07/30/22 Pravin Crowe DO [address] [place] [address] Orthopedic Surgery 05/10/15 07/30/22 Thong Demarco MD [address] [place] [address] Otolaryngology 05/10/15 07/30/22 [place] [address] [place] [address] Drying Machine Tender/Oncologis t Hematology and Oncology 07/31/23 documented as of this encounter
--- OUTSIDE RECORDS SUMMARY | 2025-06-05 13:37 | XMS_ITS | Encounter Summary ---
Author Organization [facility] Health Address [facility] [facility] [place] [address] Care Team Providers Care Exterminator Helper Name Role Phone Darryl Hanson MD Primary Care Provider Diogenes Stuart MD Unavailable [phone] Fabienne Miller MD Primary Care Provider [phone] Pravin Crowe DO Unavailable [phone] Thong Demarco MD Unavailable Fareed Nuñez MD Primary Care Provider Fareed Nuñez MD Unavailable Fareed Nuñez MD Unavailable [phone] Fareed Nuñez MD Unavailable Zafar [place] MD Unavailable [phone] Fabienne Miller MD Unavailable Encounter Details Date Type Department Care Team (Late st Contact Info) Description 12/19/2012 [facility] Outpatient Visit EXTERNAL [place] [address] [facility] [address] [place] [address] Social History Tobacco Use Types Packs/Day Years Used Date Smoking Tobacco: Every Day Cigarettes 1 15 Alcohol Use Standard Drinks/Week Comments Yes 0 (1 standard drink = 0.6 oz pur e alcohol) 12 Beers per week for 13 years Sex and Gender Information Value Date Recorded Sex Assigned at Male 08/30/2021 12:31 PM CDT Legal 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 [address] PCP - General 11/21/10 04/10/15 [place] [address] [place] [address] [address] [place] [address] PCP - General Family Medicine 05/10/15 12/18/16 Fareed Nuñez MD [address] [place] [address] [address] [place] [address] PCP - General Family Medicine 07/22/19 Fareed Nuñez [place] [address] [place] [address] [address] [place] [address] PCP - Attributed-[employer] 02/03/20 1 Fareed Nuñez MD [address] [facility] [address] [place] [address] PCP - Attributed-[employer] 03/04/21 10/19/21 Fareed Nuñez MD [address] [facility] [address] [place] [address] PCP - Attributed-[employer] 05/04/22 05/21/23 Fabienne Miller MD [address] [facility] [address] [place] [address] PCP - Attributed-[employer] Commercial 03/21/19 03/21/19 Diogenes Stuart MD [facility] [facility] [place] [address] Neurological Surgery 03/10/13 07/30/22 Pravin Crowe DO [address] [place] [address] Orthopedic Surgery 05/10/15 07/30/22 Thong Demarco MD [address] [place] [address] Otolaryngology 05/10/15 07/30/22 [place] [address] [place] [address] Mems Device Scientist/Oncologis t Hematology and Oncology 07/31/23 documented as of this encounter
--- OUTSIDE RECORDS SUMMARY | 2025-06-05 13:37 | XMS_ITS | Clinical Summary ---
Author Organization [facility] [employer] Address [address] [place] [address] Care Team Providers Care Army Officer Name Role Phone Fareed Nuñez MD Primary Care Provider Zafar Washington MD Unavailable [phone] Source Comments [facility] [employer],non-owned Affiliates and Associated Physician Practices is amultiple site organization consisting of ambulatory clinics and hospital sitesin [place], [place], [place]. This disclosure is being madepursuant to the Care Everywhere program and may not contain all information available regarding this patient. Last updated 18.[facility] [employer] Allergies No known active allergies Medications * [...] (Proventil; Ventolin; Proair) 108 (90 Base) MCG/ACT inhalerIndications :Wheezing,Tobacco use Inhale 2 (two) puffs by mouth every 6 hours as needed 54 g 3 11/06/19 25 Active ALPRAZolam (Xanax) 0.5 MG tabletIndications: ERNESTINE (generalized anxiety disorder),Panic disorder Take 1 (one) tablet by mouth 3 times daily as needed for Anxiety 90 tablet 3 01/08/20 25 Active hydroCHLOROthiazid e (Hydrodiuril) 25 MG tablet Take 1 (one) tablet by mouth once daily 02/09/20 25 026 Active folic acid (Folvite) 1 MG tablet Take 1 (one) tablet by mouth once daily 90 tablet 1 02/12/20 25 Active levothyroxine (Synthroid) 50 MCG tabletIndications: Acquired hypothyroidism Take 1 (one) tablet by mouth once daily 90 tablet 4 02/19/20 25 Active folic acid (Folvite) 1 MG tabletIndications: Folate deficiency Take 1 (one) tablet by mouth once daily 90 tablet 4 02/19/20 25 Active pregabalin (Lyrica) 100 MG capsule Take 1 (one) capsule by mouth 3 times daily 90 capsule 1 02/23/20 25 Active Active Problems Problem Noted Date [...] Encounters Date Type Department Care Team Description 04/15/2025 Orders Only [address] [address] Fareed Nuñez MD Folate deficiency; Acquired hypothyroidism 03/18/[address] [address] Fareed Nuñez MD Neuropathy from Last 3 Months Immunizations Immunization Administration Dates Next Due [employer] primary monoval ent 12+ yr 0.3mL Purple [...] Date Smoking Tobacco: Every Day Cigarettes 0.5 34 Started: 1991 Passive Smoke Exposure: Current Smokeless [...] PM CDT Legal Sex Male 8:41 AM DRAFTER DETAIL Gender Identity Male 05/22/2018 10:53 AM CDT Sexual Orientation Straight 08/30/2021 12 :31 PM CDT 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 on file Not on file Not [...] 02/11/2025 9:37 AM CDT Plan of Treatment Health Maintenance Due Date Last Done Comments COLOGUARD (AGES 45-75) - COLON CA SCREENING 1975 CT COLONOGRAPHY - COLON CA SCREENING 1975 FIT - COLON CA SCREENING 1975 FLEX SIG - COLON CA SCREENING 1975 HEPATITIS B VACCINE (1 of 3 - 19+ 3-dose series) 1994 COVID-19 VACCINE ( season) 2024 03/01/2021, 03/01/2021, 02/08/2021, Additional history exists ZOSTER VACCINE (1 of 2) 2025 INFLUENZA VACCINE (#1) 2025 0, 07/25/2018, 07/30/2017, Additional history exists LIPID TESTING 10/31/2025 10/31/2020, 07/23/2019 SCREENING FOR DIABETES 02/12/2028 , 06/24/2023, 06/24/2023, Additional history exists DTAP/TDAP/TD VACCINES (3 - [...] this topic Medical Devices Implanted Type Area Wind Energy Engineer Device Identifier Shelf Expiration Date Model / Serial / Lot Putty Dbm Progenix 5cc Implanted:Qty: 1 on 02/04/2013 by Diogenes Stuart MD at [facility] Spine Lumbar Sp[employer] 07/09/2014 [id number] / / [id number] Jam Lordotic Implant 15 Mm D X 20mm L Implanted:Qty: 1 on 02/04/2013 by Diogenes Stuart MD at [facility] Spine Lumbar 01/16/2017 [id number] 00 / / [id number] 37 Mm X 65 Mm Plate Jam Implanted:Qty: 1 on 02/04/2013 by Diogenes Stuart MD at [facility] Spine Lumbar [id number] 03 / / Jam 26 Mm Variable Screws Implanted:Qty: 6 on 02/04/2013 by Diogenes Stuart MD at [facility] Spine Lumbar [id number] 03 / / Jam 24 Mm Variable Screws Implanted:Qty: 2 on 02/04/2013 by Diogenes Stuart MD at [facility] Spine Lumbar [id number] 02 / / Scrw Canc Full Thrd 4mm X 24mm Implanted:Qty: 1 on 02/04/2013 at [facility] Synthes U[employer] 206.024 / / Putty Grft Bone Dbm Progenix 10cc Implanted:Qty: 1 on 02/04/2013 by Diogenes Stuart MD at [facility] Spine Lumbar Medtronic [employer] 07/28/2014 [id number] / / [id number] Putty Grft Bone Dbm Progenix 10cc Implanted:Qty: 1 on 02/04/2013 by Diogenes Stuart MD at [facility] Spine Lumbar Medtronic [employer] 10/08/2014 [id number] / / [id number] Jam Spine Interbody Implant 15 Mm D X 20 Mm L Implanted:Qty: 1 on 02/04/2013 by Diogenes Stuart MD at [facility] Spine Lumbar 09/18/2017 [id number] 22 / / [id number] Jam Spine Interbody Implant 15 Mm D X 20 Mm L Implanted:Qty: 1 on 02/04/2013 by Diogenes Stuart MD at [facility] Spine Lumbar 01/16/2015 [id number] 00 / / [id number] Jam Interbody Implant 15 Mm D X 20 Mm L Implanted:Qty: 1 on 02/04/2013 by Diogenes Stuart MD at [facility] Spine Lumbar 09/18/2017 [id number] 22 / / [id number] Jam Spine Interbody Implant 15 Mm S X 20 Mm L Implanted:Qty: 1 on 02/04/2013 by Diogenes Stuart MD at [facility] Spine Lumbar 11/18/2015 [id number] 00 / / [id number] Jam Plate 37 Mm X 16 Implanted:Qty: 2 on 02/04/2013 by Diogenes Stuart MD at [facility] Spine Lumbar [id number] 03 / / Lordotic Interbody Implant 15 Mm D X 20 Mml Implanted:Qty: 1 on 02/04/2013 by Diogenes Stuart MD at [facility] Spine Lumbar 01/16/2017 [id number] 00 / / [id number] Procedures Procedure Name Priority Date/Time Associated Diagnosis Comments HEPATITIS C AB W/RFLX TO HCV RNA QN PCR Routine 02/11/2025 11:13 AM CDT Polyneuropathy HEMOGLOBIN A1C Routine 02/11/2025 11:05 AM CDT Polyneuropathy HIV-1 HIV-2 ANTIBODY + HIV P24 AG PANEL Routine 02/11/2025 11:05 AM CDT Polyneuropathy ENDOSCOPY, COLON, DIAGNOSTIC Routine 06/04/2023 8:11 AM CDT Diarrhea, unspecified type Blood in the stool LIPID PROFILE Routine 10/31/2020 2:55 PM DRAFTER DETAIL Benign essential hypertension Screening, lipid from Last 3 Months or Most Recently Relevant to Health Maintenance Results * HEPATITIS C AB W/RFLX TO HCV RNA QN PCR (02/11/2025 11:13 AM CDT) Hepatitis C Antibody NON-REACTI VE NON-REACT [facility]IE [facility] Comment: HCV antibody was non-reactive. There is no laboratory evidence of HCV infection. In most cases, no further action is required. However, if recent HCV exposure is suspected, a test for HCV RNA (test code 35215) is suggested. For additional information please refer to [email or web address]/faq/ZQL06d3 (This link is being provided for informational/ educational purposes only.) Test Performed at: [facility] [employer] [facility] [id number] [place] [address] JENNIFER HOOVER MD Blood BLOOD SPECIMEN / Unknown 02/11/2025 11:13 AM CDT 02/11/2025 11:14 AM CDT Fareed Nuñez MD LAB - CHEMISTRY ORDERABLES F inal Result [employer] [address] [place] [address] * HIV-1 HIV-2 ANTIBODY + HIV P24 [...] purpose. For additional information please refer to [email or web address]/faq/XYT868 (This link is being provided for informational/ educational purposes only.) The performance of this assay has not been clinically validated in patients less than 2 years old. Test Performed at: [employer] [facility] [address] [facility] [place] [employer] [address] JENNIFER HOOVER MD Blood BLOOD SPECIMEN / Unknown 02/11/2025 11:05 AM CDT 02/11/2025 11:05 AM CDT Fareed Nuñez MD LAB - CHEMISTRY ORDERABLES F inal Result Performing Organization Address [facility] de Phone Number [address] [address] * HEMOGLOBIN A1C (HgbA1C) (02/11/2025 11:05 AM CDT) Hemoglobin A1c 5.4 <5.7 % of total [...] diagnosis of diabetes in children. According to [place] Diabetes Association (ADA) guidelines, hemoglobin A1c <7.0% represents optimal control in non- diabetic patients. Different metrics may apply to specific patient populations. Standards of Medical Care in Diabetes(ADA). Test Performed at: [facility] [address] JENNIFER HOOVER MD Blood BLOOD SPECIMEN / Unknown 02/11/2025 11:05 AM CDT 02/11/2025 11:05 AM CDT aFreed Nuñez MD LAB - CHEMISTRY ORDERABLES F inal Result Performing Organization Address [facility] de Phone Number [address] [address] * ENDOSCOPY, COLON, DIAGNOSTIC (06/04/2023 8:11 AM CDT) Report Endoscopy POC _ Patient Name: Jennifer Rodriguez Procedure Date: 06/04/2023 8:11 AM Date of : 1975 Admit Type: Outpatient Age: 48 Gender: Male Attending MD: Fariha Aceves MD, [id number] _ Procedure: Colonoscopy Indications: Screening for colorectal [...] bowel preparation was evaluated using the BBPS ([place] Bowel Preparation Scale) with scores of: Right [...] pathology results. Procedure Code(s): --- Professional --- 89883, Colonoscopy, flexible; with biopsy, single or multiple --- Technical --- 11873, Colonoscopy, flexible; with biopsy, single or multiple Diagnosis Code(s): --- Professional --- Z12.11, Encounter for screening for malignant neoplasm of colon K64.8, Other hemorrhoids D12.8, Benign neoplasm of rectum --- Technical --- Z12.11, Encounter for screening for malignant neoplasm of colon K64.8, Other hemorrhoids D12.8, Benign neoplasm of rectum CPT copyright 2020 [place] Medical Association. All rights reserved. The codes documented in this report are preliminary and upon senior account executive review may be revised to meet current compliance requirements. __ Fariha Aceves MD 06/04/2023 9:38:20 AM Number of Addenda: 0 Note Initiated On: 06/04/2023 8:11 AM [facility] 06/04/2023 8:11 AM CDT us Tiki Lam [facility] JUSTICE GI PROCEDURE ORDERABLES Edited Result - Final [facility] [place] [address] * (ABNORMAL) LIPID PROFILE (10/31/2020 2:55 PM DRAFTER DETAIL) Cholesterol 281(H) <200 mg/dL [facility] ACCOUNT BILL Triglycerides 107 <150 mg/dL [facility] ACCOUNT BILL HDL Cholesterol 121 >40 mg/dL [facility] ACCOUNT BILL VLDL Calculated 21 <=30 mg/dL [facility] ACCOUNT BILL LDL Calculated 139(H) <130 mg/dL [facility] ACCOUNT BILL Comment:FASTING Blood BLOOD SPECIMEN / Unknown 10/31/2020 2:55 PM DRAFTER DETAIL 10/31/2020 Narrative Resulting Agency Comment Lab Testing performed at: [facility] [address] [place] [id number] us Fareed Nuñez MD LAB - CHEMISTRY ORDERABLES F inal Result [facility] ACCOUNT BILL [address] [place] [address] from Last 3 Months or Most Recently Relevant to Health Maintenance Insurance COMMERCIAL GENERIC * Guarantor: JENNIFER RODRIGUEZ Account Type Relation to Patient Date of Phone Billing Address Personal/Family [address] [address] Advance Directives * FULL RESUSCITATION (Latest Code Status on File) Date Activated Date Inactivated Comments 02/04/2013 1:53 PM 02/05/2013 12:52 PM Care Teams Army Officer Relationship Specialty Start Date End Date Fareed Nuñez MD [address] [facility] [address] [place] [address] PCP - General Family Medicine 07/22/19 [place] [address] [facility] [address] [place] [address] Coil Binder/Oncologist Hematology and Oncology 07/31/23
[2025-06-05 13:44] LABS: INR 1.0; Prothrombin Time 13.7 Seconds (11.1-14.7)
[2025-06-05 13:45] LABS: Partial Thromboplastin Time 34.6 Seconds (22.3-36.8)
[2025-06-05 13:52] LABS: Alanine Aminotransferase 18 U/L (6-50); Albumin Level 4.2 g/dL (3.5-5.1); Alkaline Phosphatase 85 U/L (38-126); Anion Gap 9 mmol/L (4-12); Aspartate Amino Transferase 27 U/L (17-59); Bilirubin,Total 0.4 mg/dL (0.2-1.3); Blood Urea Nitrogen 13 mg/dL (9-20); Calcium 10.0 mg/dL (8.4-10.2); Carbon Dioxide 27 mmol/L (22-30); Chloride 99 mmol/L (98-107); Estimated CRCL calculation 103 ml/min; Estimated Glomerular Filt Rate > 60; Glucose 95 mg/dL (65-110); Potassium 4.1 mmol/L (3.4-5.0); Sodium 135 mmol/L (137-145); Total Protein 7.7 g/dL (6.3-8.2)
--- NOTE | 2025-06-05 14:02 | ED.AMS ---
HPI - Altered Mental Status General Chief Complaint: Altered Mental Status Stated Complaint: AMS Time Seen by Provider: 06/05/25 13:19 History of Present Illness HPI narrative: 50-year-old male presenting from [facility] [place] for concerns of transient confusion for last 3 days. 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 He has been doing well according to the fiancee present at bedside for collateral information but for last 3 days he has had a significant regression to the point that he has more confused and not remembering any of the events during his 1 month hospitalization previous to the rehab and the last 3 weeks at the [facility] [place]. He is confused and not knowing where he is or what happened during the last few days, confused about his home life and does not from but he has dogs at home with his fiancee. He denies any falls or injuries. He is rather upset during initial encounter and does not want to be here. He is not any blood thinner medications and [facility] [place] as well as been working with physical therapy daily to trying get mobility back. He still has limited walking ability without significant assistance such as a walker and still has peripheral neuropathy in both his arms and legs significant with decreased sensation. No recent illnesses, no infectious symptoms, fever, chills, headache, vision changes, abdominal pain or back pain. No urinary symptoms. No diarrhea. No chest pain or shortness of breath. Related Data Home Medications ?Medication ?Instructions ?Recorded ?Confirmed ?Last Taken ?Type albuterol 90 mcg/actuation aerosol 90 mcg inhalation TID PRN 06/12/22 06/05/25 03/30/25 History inhaler Shortness Of Breath lisinopril 20 mg tablet 20 mg PO DAILY 07/23/24 06/05/25 03/23/25 History folic acid 1 mg tablet 1 mg PO DAILY 03/30/25 06/05/25 03/29/25 History levothyroxine 50 mcg tablet 50 mcg PO DAILY 03/30/25 06/05/25 03/29/25 History baclofen 5 mg tablet 10 mg PO TID spastic movements 04/25/25 06/05/25 Unknown History pregabalin 75 mg capsule (Lyrica) 200 mg PO TID 06/05/25 06/05/25 Unknown History Allergies Allergy/AdvReac Type Severity Reaction Status Date / Time tramadol AdvReac Intermediate Agitated Verified 06/05/25 18:22 vancomycin AdvReac Unknown tingling Verified 06/05/25 18:22 Review of Systems Review of Systems: As reviewed above in [facility] Past Medical History Medical History Chronic alcoholic liver disease Rectal bleeding Secondary to rectal ulcer Peripheral neuropathy Alcohol withdrawal syndrome Neuropathy Chronic hyponatremia Hepatic steatosis Noted on CT scan 06/2022 Tobacco abuse Hypertension Asthma Anxiety Surgical History Surgical History H/O knee surgery H/O spinal fusion Family History Family History Other Family history non-contributory Social History Social History Social History: The patient lives with his significant other. He has 2 daughters. He has smoked 1 pack per day since he was a teenager. He has a history of heavy alcohol use drinking up to 1 5th of vodka every other day with recent decrease in alcohol consumption down to 2-3 beers a day on weekdays and 10 beers a day on weekends. 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 The patient smokes marijuana nightly. Code status: Full code Smoking packs per day: 0.75 Smoking cigarettes per day: 15.0 Years smoked: 35 Smoking pack-years: 26.25 Smoking status: Current every day smoker Tobacco type: cigarettes Alcohol intake: never Drinks per week: 20 Alcohol use details: social Substance use: never Substance use type: marijuana Last use: 03/29/2025 Do You Feel Safe in your Home?: Yes Lack of Transportation: No Lack of Food: Never True Current Housing: I Have Housing Concerned About Future Housing: No Difficulty Paying Gas/Electric Bills: No Difficulty Paying for Meds: No Currently Unemployed: No Education: Trade/Vocational Certificate Difficulty w/ Childcare or Family Care: No Living arrangements: with family Gender identity (if verbalized by the patient): Male Spiritual care concerns: No Exam Narrative: GENERAL: [Well-appearing, well-nourished, and in no acute distress.] HEAD: [Normocephalic, atraumatic.] EYES: [PERRLA and EOMI.] ENT: Nares clear, no rhinorrhea or epistaxis. Mucous membranes moist. NECK: Supple. CHEST: [Clear to auscultation. No respiratory distress.] HEART: [Regular rate and rhythm]. No murmur heard. [Normal peripheral pulses.] ABDOMEN: [Soft, nondistended], [nontender], [No rigidity or guarding] EXTREMITIES: Normal range of motion. [No edema.] SKIN: Warm, dry, no rash. NEURO: Ataxia in the bilateral lower extremities severe, decreased sensation bilateral lower extremities and bilateral hands in a glove and stocking distribution. No weakness in the arms or legs, strength is intact full 5/5 bilaterally. Severe ataxia limited to the lower extremities, sparing the upper extremities and trunk. No visual deficits, no extraocular movement impairment, alert oriented x3 currently but confused previous events and recent events. PSYCH: [Normal mood and affect.] Course Vital Signs Vital signs: Vital Signs Pulse Rate 80 06/05/25 13:16 Respiratory Rate 17 06/05/25 13:16 Blood Pressure 120/88 06/05/25 13:16 Pulse Oximetry 98 06/05/25 13:16 Oxygen Delivery Room Air 06/05/25 13:16 Temperature 36.8 C 06/05/25 19:22 Pulse Rate 89 06/05/25 19:22 Respiratory Rate 16 06/05/25 19:22 Blood Pressure 131/91 H 06/05/25 19:22 Pulse Oximetry 99 06/05/25 19:22 Oxygen Delivery Room Air 06/05/25 13:29 MDM - Altered Mental Status MDM Narrative Medical decision making narrative: 50-year-old male presenting from [facility] [place] for concerns of transient confusion for last 3 days. 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 He has been doing well according to the netta present at bedside for collateral information but for last 3 days he has had a significant regression to the point that he has more confused and not remembering any of the events during his 1 month hospitalization previous to the rehab and the last 3 weeks at the [facility] [place]. He is confused and not knowing where he is or what happened during the last few days, confused about his home life and does not from but he has dogs at home with his fiancee. He denies any falls or injuries. He is rather upset during initial encounter and does not want to be here. He is not any blood thinner medications and receives all his medications at the [facility] [place] as well as been working with physical therapy daily to trying get mobility back. He still has limited walking ability without significant assistance such as a walker and still has peripheral neuropathy in both his arms and legs significant with decreased sensation. No recent illnesses, no infectious symptoms, fever, chills, headache, vision changes, abdominal pain or back pain. No urinary symptoms. No diarrhea. No chest pain or shortness of breath. Ataxia in the bilateral lower extremities severe, decreased sensation bilateral lower extremities and bilateral hands in a glove and stocking distribution. No weakness in the arms or legs, strength is intact full 5/5 bilaterally. Severe ataxia limited to the lower extremities, sparing the upper extremities and trunk. No visual deficits, no extraocular movement impairment, alert oriented x3 currently but confused previous events and recent events. Patient is hemodynamically stable without any fever, tachycardia, tachypnea, hypoxia. No new substance abuse in his last alcoholic intake was over 30 days ago. He completed his detox and has been getting therapy for his severe peripheral neuropathy and ataxia limiting ambulation but clinically he appears altered with severe ataxia and suspected nutritional deficits causing his symptomatology. Differential remains broad but does include or any acute encephalopathy, intracranial hemorrhage, stroke, electrolyte derangements, dehydration, urinary infection, pneumonia. Broad workup was obtained including a CT of the head, vitamin levels, CBC, CMP, chest x-ray. Alcohol level and drug screen obtained. He was given 300 mg of IV thiamine, folic acid and fluids Patient's laboratory studies, imaging and workup is unrevealing at this time. I discussed the case with the on-call neurologist Dr. Knowles who saw the patient during his previous admission for alcoholic withdrawals and peripheral neuropathy with ataxia. Patient will be admitted to the hospital for evaluation by Neurology and further workup for his encephalopathy of unclear origin. Possibility of Wernicke's encephalopathy still raised although his vitamin levels are appropriate here with no obvious electrolyte deficiencies on workup. Discussed the case with the hospitalist who was okay with admission to a telemetry monitored bed at this time. Medical Records Attestation: I reviewed the patient's medical records. Lab Data Attestation: I reviewed the patient's lab results. 06/05/25 13:27 06/05/25 13:27 Labs: Lab Results 06/05/25 06/05/25 Range/Units 13:27 15:26 WBC 6.0 (4.5-10.0) K/mm3 RBC 3.97 L (4.6-6.20) M/mm3 Hgb 11.2 L (14.0-18.0) g/dL Hct 34.8 L (42.0-52.0) % MCV 87.7 (80-100) fl MCH 28.2 (26-34) pg MCHC 32.2 (32-36) g/dl RDW 13.9 (11.5-14.5) % Plt Count 226 (150-375) k/mm3 MPV 11.4 H (7.4-10.4) fl Immature Gran % (Auto) 0.2 (0-0.5) % Neut % (Auto) 61.4 (45.5-73.1) % Lymph % (Auto) 28.1 (18.3-44.2) % [place] % (Auto) 7.5 (2.6-8.5) % Eos % (Auto) 2.0 (0-4.4) % Baso % (Auto) 0.8 (0.2-1.2) % Lymph # (Auto) 1.69 (0.9-3.2) K/mm3 [place] # (Auto) 0.5 (0.1-0.6) K/mm3 Eos # (Auto) 0.1 (0-0.3) K/mm3 Baso # (Auto) 0.1 (0.0-0.1) K/mm3 Abs Immat Gran (auto) 0.01 (0.00-0.031) K/mm3 Absolute Neuts (auto) 3.7 (1.3-6.7) K/mm3 Absolute Nucleated RBC 0.000 (0.0-0.012) K/mm3 Nucleated RBC % 0.0 (0.0-0.2) % PT 13.7 (11.1-14.7) Seconds INR 1.0 APTT 34.6 (22.3-36.8) Seconds Sodium 135 L (137-145) mmol/L Potassium 4.1 (3.4-5.0) mmol/L Chloride 99 (98-107) mmol/L Carbon Dioxide 27 (22-30) mmol/L Anion Gap 9 (4-12) mmol/L BUN 13 D (9-20) mg/dL Creatinine 0.74 (0.7-1.3) mg/dL Estim Creat Clear Calc 103 ml/min Estimated GFR > 60 (59 - ) Glucose 95 (65-110) mg/dL Calcium 10.0 (8.4-10.2) mg/dL Total Bilirubin 0.4 (0.2-1.3) mg/dL AST 27 (17-59) U/L ALT 18 (6-50) U/L Alkaline Phosphatase 85 (38-126) U/L Total Protein 7.7 (6.3-8.2) g/dL Albumin 4.2 (3.5-5.1) g/dL Vitamin B12 914.0 (239-931) pg/mL TSH (Reflex) 0.391 L (0.465-4.68) uIU/mL Free T4 1.20 (0.78-2.19) ng/dL Total T3 Pending Urine Color Yellow (Yellow) Urine Appearance Clear (Clear) Urine pH 6.5 (5.0-9.0) Ur Specific [place] 1.013 (1.001-1.035) Urine Protein Negative (Negative) mg/dL Urine Glucose (UA) Negative (Negative) mg/dL Urine Ketones Negative (Negative) mg/dL Ur Blood (Man) Negative (Negative) Urine Nitrate Negative (Negative) Urine Bilirubin Negative (Negative) Urine Urobilinogen 0.2 (<2.0) mg/dL Leukocyte Esterase Rfl Negative (Negative) [place]/UL Urine Opiates Screen Positive A (Negative) Urine Methadone Screen Negative (Negative) Ur Barbiturates Screen Negative (Negative) Ur Phencyclidine Scrn Negative (Negative) Ur Amphetamine Screen Negative (Negative) U Benzodiazepines Scrn Negative (Negative) Urine Cocaine Screen Negative (Negative) U Cannabinoids Screen Negative (Negative) Ethyl Alcohol < 10 (<10) mg/dL Imaging Data Attestation: I personally reviewed and interpreted this imaging study as follows: My impression: Impressions Head CT 06/05/25 14:27 IMPRESSION: No acute intracranial process. Discharge Plan Discharge Clinical Impression: Encephalopathy, Neuropathy, Ataxia Patient Disposition: Still a Patient Condition: Stable
[2025-06-05] MEDS: THIAMINE HCL 200 MG/2 ML VIAL 300 MG IV PUSH (14:29)
[2025-06-05] MEDS: FOLIC ACID 1 MG/0.2 ML INJ IV PUSH (14:29)
[2025-06-05] MEDS: LACTATED RINGERS 1,000 ML 999 ML IV CONT (14:29)
[2025-06-05 14:48] LABS: Thyroid Stimulating Hormone Reflex 0.391 uIU/mL (0.465-4.68)
[2025-06-05 14:53] LABS: Vitamin B12 914.0 pg/mL (239-931)
[2025-06-05 15:32] LABS: Add Urine Microscopic? NO; Appearance Urine Clear (Clear); Glucose Urine UA Negative (Negative); Leukocyte Esterase Ur Negative LEU/UL (Negative); Nitrate Urine Negative (Negative); Specific Grav Ur 1.013 (1.001-1.035)
[2025-06-05] MEDS: MULTIVITAMINS-12 INJ VIAL 1 5 ML, MULTIVITAMINS-12 INJ VIAL 2 5 ML in SODIUM CHLORIDE 0... 100 ML IV CONT (16:08)
[2025-06-05 16:27] LABS: Cannabinoid Screen Urine Negative (Negative)
--- NOTE | 2025-06-05 18:15 | ADMGEN ---
This patient, Tyree Rodriguez, was admitted to Medical Room 244-. Patient/family oriented to hospital policies and general routines including ID bracelet, bed and alarms, visiting hours, pain management, procedures, bathroom and other care routines, personal items, smoking policy, room service/diet, and visiting hours. Information on how to activate the Rapid Response Team has been discussed. Patient/Family are encouraged to report perceived risks to care and to ask questions if they do not understand what they are told or what they should do.
--- NOTE | 2025-06-05 18:34 | P.HP_ITS ---
H&P: HPI History of Present Illness Date/Time: 06/05/25 18:34 Chief Complaint: Confusion Narrative: 50 y/o M with PMH of alcohol abuse/heavy alcohol use, essential hypertension, GERD, hepatic steatosis, rectal ulcer, asthma and tobacco use presents here with confusion. The patient presents here from [facility] for further evaluation of confusion. The patient and his significant other provided the following history. The patient has had intermittent/transient confusion for the past 3 days. He is currently residing at [facility] for rehab post admission for alcohol withdrawal, alcoholic induced peripheral neuropathy with significant vitamin deficiencies, and ataxia. Per the patient's significant other he has been doing well and participating in therapy as well as taking his daily medications at this facility. However within the last 3 days he has become more confused, not remembering events over the last month, not remembering his previous hospitalization, or his 3 weeks at rehab. Patient is also experiencing some confusion about his home life, for example did not remember his dogs that live at home with him and his fiancee. Confusion is accompanied potentially by diarrhea/upset stomach on Saturday/Saturday but patient cannot recall, collateral given by son. He denies chest pain, abdominal pain, nausea, vomiting, diarrhea, fever, chills, body aches, dizziness, or headache. Of note, the patient continues to have limited ability to walk without significant assistance or with a walker due to his peripheral neuropathy in his bilateral upper extremities and lower extremities. Last alcohol intake on at the end of March of 2025 prior to his admission. Initial VS at presentation: HR 80, R 17, 120/88, and 90% on RA. ED workup showed: No leukocytosis, hemoglobin 11.2, normal coags, no significant electrolyte derangements, creatinine 0.74 and GFR >60, TSH 0.391 with T4 pending. UA unremarkable. UDS positive for opiates, otherwise unremarkable. ETOH negative. Head CT showed no acute intracranial process. Review of Systems Review of Systems: All systems reviewed & are unremarkable except as noted in HPI and below PMFSH Past Medical History Medical History Chronic alcoholic liver disease Rectal bleeding Secondary to rectal ulcer Peripheral neuropathy Alcohol withdrawal syndrome Neuropathy Chronic hyponatremia Hepatic steatosis Noted on CT scan 06/2022 Tobacco abuse Hypertension Asthma Anxiety Surgical History Surgical History H/O knee surgery H/O spinal fusion Family History Family History Other Family history non-contributory Social History Social History Social History: The patient lives with his significant other. He has 2 daughters. He has smoked 1 pack per day since he was a teenager. He has a history of heavy alcohol use drinking up to 1 5th of vodka every other day with recent decrease in alcohol consumption down to 2-3 beers a day on weekdays and 10 beers a day on weekends. The patient works as a [employer] but is out of work due to illness since fall. The patient smokes marijuana nightly. Code status: Full code Smoking packs per day: 0.75 Smoking cigarettes per day: 15.0 Years smoked: 35 Smoking pack-years: 26.25 Smoking status: Current every day smoker Tobacco type: cigarettes Alcohol intake: never Drinks per week: 20 Alcohol use details: social Substance use: never Substance use type: marijuana Last use: 03/29/2025 Do You Feel Safe in your Home?: Yes Lack of Transportation: No Lack of Food: Never True Current Housing: I Have Housing Concerned About Future Housing: No Difficulty Paying Gas/Electric Bills: No Difficulty Paying for Meds: No Currently Unemployed: No Education: Trade/Vocational Certificate Difficulty w/ Childcare or Family Care: No Living arrangements: with family Gender identity (if verbalized by the patient): Male Spiritual care concerns: No Meds Home Medications and Allergies Home Medications ?Medication ?Instructions ?Recorded ?Confirmed ?Type albuterol 90 mcg/actuation aerosol 90 mcg inhalation TID PRN 06/12/22 06/05/25 History inhaler Shortness Of Breath lisinopril 20 mg tablet 20 mg PO DAILY 07/23/24 06/05/25 History omeprazole 20 mg tablet,delayed 20 mg PO DAILY #60 tabs 09/21/24 06/05/25 Rx release hydrocodone 5 mg-acetaminophen 325 1 tablet PO Q8H PRN pain #7 tabs 02/22/25 06/05/25 Rx mg tablet methocarbamol 750 mg tablet 750 mg PO TID PRN muscle spasm #14 02/22/25 06/05/25 Rx tabs folic acid 1 mg tablet 1 mg PO DAILY 03/30/25 06/05/25 History levothyroxine 50 mcg tablet 50 mcg PO DAILY 03/30/25 06/05/25 History bisacodyl 5 mg tablet,delayed 5 mg PO QAM 30 days #30 tabs 04/21/25 06/05/25 Rx release (Laxative (bisacodyl)) citalopram 20 mg tablet (Celexa) 10 mg (1/2 x 20 mg) PO QAM 30 days 04/21/25 0 06/05/25 Rx #15 tabs duloxetine 30 mg capsule,delayed 30 mg PO Q12HR 30 days #60 caps 04/21/25 06/05/25 Rx release (Cymbalta) multivitamin 1 tablet PO DAILY #30 tabs 04/21/25 06/05/25 Rx peg [id number] 1 1 drp EACH EYE QID PRN Dry Eye(S) 04/21/25 06/05/25 Rx %-0.2 %-0.2 % eye drops 30 days #15 mL (Artificial Tears ([id number])) thiamine HCl (vitamin B1) 100 mg 100 mg PO QAM 30 days #30 tabs 04/21/25 06/05/25 Rx tablet (Vitamin B-1) baclofen 5 mg tablet 10 mg PO TID spastic movements 04/25/25 06/05/25 History lidocaine 5 % topical patch 1 patch transdermal HS #15 ea 05/05/25 06/05/25 Rx (Lidoderm) lorazepam 0.5 mg tablet 0.5 mg PO BID PRN Anxiety #10 tabs 05/05/25 06/05/25 Rx polyethylene glycol 3350 17 gram 17 g PO QAM PRN Constipation #30 ea 05/05/25 06/05/25 Rx oral powder packet (Miralax) polysaccharide iron complex 150 mg 150 mg PO DAILY@0800 #30 caps 05/05/25 06/05/25 Rx iron capsule simethicone 40 mg/0.6 mL oral 1.8 ml PO ONCE PRN Gas Discomfort 05/05/25 06/05/25 Rx drops,suspension (Infants Gas #5 mL Relief) vitamin B complex (Vitamins B 1 cap PO QAM #90 caps 05/05/25 06/05/25 Rx Complex capsule) pregabalin 75 mg capsule (Lyrica) 200 mg PO TID 06/05/25 06/05/25 History Allergies Allergy/AdvReac Type Severity Reaction Status Date / Time tramadol AdvReac Intermediate Agitated Verified 06/05/25 18:22 vancomycin AdvReac Unknown tingling Verified 06/05/25 18:22 Vital Signs Vital Signs - 24 hr 06/05/25 13:16 06/05/25 13:16 06/05/25 13:29 Pulse Rate 80 83 Respiratory Rate 17 Blood Pressure 120/88 Pulse Oximetry 98 97 Oxygen Delivery Room Air Room Air 06/05/25 13:31 06/05/25 14:33 06/05/25 15:01 Pulse Rate 85 76 82 Respiratory Rate 15 13 16 Blood Pressure 112/82 117/90 128/97 H Pulse Oximetry 97 98 98 Oxygen Delivery 06/05/25 15:31 06/05/25 16:01 06/05/25 17:31 Pulse Rate 81 81 87 Respiratory Rate 14 17 16 Blood Pressure 125/95 H 129/93 H 131/86 Pulse Oximetry 98 97 Oxygen Delivery Exam Const: General: comfortable and no acute distress Other: , male, nontoxic appearance HENMT: Face/Nose/Sinus: Normal nares present Mouth: Yes moist mucous membranes Eyes: General: appearance normal, both eyes and all related structures Sclera: sclerae normal Pupils: Equal, round and reactive pupils present EOM: EOMs intact bilaterally Resp: Effort & Inspection: normal respiratory effort Auscultation: clear to auscultation bilaterally Cardio: Rate: regular rate Rhythm: regular rhythm Other: S1-S2 present without murmur, rub, ectopy GI: Other: Abdomen soft, nondistended, nontender. Normoactive bowel sounds in all quadrants. Skin: General skin exam: normal color and no rashes or lesions noted Wounds: no wounds Neuro: Speech: normal speech Other: LLE +4, RLE +5. +4-5 in BUE, symmetric. no overt tremor. Tremor/ataxia noted while transferring to the . A/Ox4 at present. reduced sensation in all extremities. Extrem: General: normal to inspection Psych: Mental Status: mental status grossly normal Affect: normal affect Other: Good insight and judgment at present, pleasant H&P: Results Labs Labs: Short CBC 06/05/25 Range/Units 13:27 WBC 6.0 (4.5-10.0) K/mm3 Hgb 11.2 L (14.0-18.0) g/dL Hct 34.8 L (42.0-52.0) % Plt Count 226 (150-375) k/mm3 BMP 06/05/25 13:27 Sodium 135 L Potassium 4.1 Chloride 99 Carbon Dioxide 27 BUN 13 D Creatinine 0.74 Glucose 95 Calcium 10.0 Liver Function 06/05/25 Range/Units 13:27 Total Bilirubin 0.4 (0.2-1.3) mg/dL AST 27 (17-59) U/L ALT 18 (6-50) U/L Alkaline Phosphatase 85 (38-126) U/L Albumin 4.2 (3.5-5.1) g/dL Urine 06/05/25 Range/Units 15:26 Urine Color Yellow (Yellow) Urine Appearance Clear (Clear) Urine pH 6.5 (5.0-9.0) Ur Specific [place] 1.013 (1.001-1.035) Urine Protein Negative (Negative) mg/dL Urine Glucose (UA) Negative (Negative) mg/dL Assessment and Plan Assessment and plan (1) Altered mental status: Qualifiers: Altered mental status type: disorientation Qualified Code(s): R41.0 - Disorientation, unspecified Code(s): R41.82 - Altered mental status, unspecified Status: Acute Assessment and Plan: - Head CT: No acute intracranial process - no leukocytosis, no significant electrolyte derangements, glucose 95 upon admission, UA unremarkable, UDS positive for opiates however prescribed [place], ETOH negative - check CXR, ammonia, TSH, B1, B12, and folic acid - continue B complex, folic acid, and thiamine given alcohol abuse history - last ETOH at the end of March in 2024, denies relapse - no focal neurologic deficits concerning for stroke, may consider MRI if no improvement in mentation or if indicated by Neurology - neurology consulted Suspicion for sequela to chronic alcohol use and secondary complications/vitamin deficiencies. Checking B1 and folic acid. Receiving multivitamins IVPB. No current confusion noted. (2) Ataxia: Code(s): R27.0 - Ataxia, unspecified Status: Chronic Assessment and Plan: - history of chronic alcoholism with secondary complications and alcohol withdrawal syndrome during previous hospitalization, severe neuropathy with resultant neurologic disability in ambulation and use of upper extremities - continue PT/OT while inpatient (3) Alcohol abuse: Code(s): F10.10 - Alcohol abuse, uncomplicated Status: Resolved Assessment and Plan: - last drink at the end of March in 2024, denies relapse - history of chronic alcoholism with secondary complications and withdrawal syndrome - no current evidence of withdrawal or relapse - continue thiamine and B complex, checking levels (4) Chronic alcoholic liver disease: Code(s): K70.9 - Alcoholic liver disease, unspecified Status: Chronic Assessment and Plan: - LFTs and alk phos within normal limits - checking ammonia (5) Hypertension: Qualifiers: Hypertension type: primary hypertension Qualified Code(s): I10 - Essential (primary) hypertension Code(s): I10 - Essential (primary) hypertension Status: Chronic Assessment and Plan: - chronic, currently 131/86 - continue home medications: Lisinopril - monitor Plan Diet: Room regular GI Prophylaxis: Omeprazole p.o. DVT Prophylaxis: SCDs IV fluids: 100 mL/hour x1 L Lines/Tubes: Peripheral IV Code Status: Full code Quality VTE Prophylaxis VTE prophylaxis: mechanical ordered Hospitalist MIPS Advance Care Plan I have confirmed that the patient's Advanced Care Plan is present, code status is documented, or surrogate decision maker is listed in patient medical record.: Yes Medication Reconciliation I have utilized all available resources to obtain, update and review the patients current medications (includes all prescriptions, OTC, herbals, cannabis, and nutritional supplements).: Yes
[2025-06-05 19:28] LABS: Free T4 Free Thyroxine Reflex 1.20 ng/dL (0.78-2.19)
[2025-06-05 19:53] LABS: Ammonia < 9 umol/L (9-30)
[2025-06-05] MEDS: PREGABALIN (*CRX) 50 MG CAPSULE 200 MG PO (20:38)
[2025-06-05] MEDS: BACLOFEN 10 MG TABLET PO (20:39)
[2025-06-05 20:59] LABS: Vitamin B12 919.0 pg/mL (239-931)
[2025-06-05 21:04] LABS: Total Triiodothyronine (T3) 1.27 NG/ML (0.82-1.58)
[2025-06-06] VITALS (10 sets, daily range): BP systolic 110–125; BP diastolic 75–86; PULSE 75–101; RESP 16–18; TEMP 36.3–37.1; O2SAT 96–100
[2025-06-06] MEDS: LORazepam (*CRX) 0.5 MG TABLET PO (01:22)
[2025-06-06 05:34] LABS: Hematocrit 33.1 % (42.0-52.0); Hemoglobin 10.1 g/dL (14.0-18.0); Immature Granulocyte Percent A 0.2 % (0-0.5); Lymphocytes Absolute Auto 1.69 K/mm3 (0.9-3.2); Mean Corpuscular HGB Conc 30.5 g/dl (32-36); Mean Corpuscular Hemoglobin 28.0 pg (26-34); Mean Corpuscular Volume 91.7 fl (80-100); Nucleated Red Blood Cells Absolute Auto 0.000 K/mm3 (0.0-0.012); Nucleated Red Blood Cells Perc 0.0 % (0.0-0.2); Platelet Count Result 197 k/mm3 (150-375); Red Blood Count 3.61 M/mm3 (4.6-6.20); White Blood Count 6.2 K/mm3 (4.5-10.0)
[2025-06-06 05:48] LABS: Alanine Aminotransferase 15 U/L (6-50); Albumin Level 3.7 g/dL (3.5-5.1); Alkaline Phosphatase 70 U/L (38-126); Anion Gap 6 mmol/L (4-12); Aspartate Amino Transferase 24 U/L (17-59); Bilirubin,Total 0.3 mg/dL (0.2-1.3); Blood Urea Nitrogen 14 mg/dL (9-20); Calcium 9.4 mg/dL (8.4-10.2); Carbon Dioxide 28 mmol/L (22-30); Chloride 102 mmol/L (98-107); Estimated CRCL calculation 94 ml/min; Estimated Glomerular Filt Rate > 60; Glucose 117 mg/dL (65-110); Magnesium 2.0 mg/dL (1.6-2.3); Potassium 4.1 mmol/L (3.4-5.0); Sodium 136 mmol/L (137-145); Total Protein 6.6 g/dL (6.3-8.2)
[2025-06-06] MEDS: LEVOTHYROXINE SODIUM 50 MCG TABLET PO (06:24)
[2025-06-06] MEDS: CITALOPRAM HYDROBROMIDE 10 MG TABLET PO (08:37)
[2025-06-06] MEDS: FOLIC ACID 1 MG TABLET PO (08:37)
[2025-06-06] MEDS: VITAMIN B COMPLEX CAPSULE 1 CAP PO (08:37)
[2025-06-06] MEDS: MULTIVITAMINS THERAPEUTIC TAB (*BKC) 1 TABLET PO (08:37)
[2025-06-06] MEDS: BISACODYL 5 MG TABLET EC PO (08:37)
[2025-06-06] MEDS: THIAMINE HCL 100 MG TABLET PO (08:37)
[2025-06-06] MEDS: BACLOFEN 10 MG TABLET PO ×2 (08:37→12:20)
[2025-06-06] MEDS: PREGABALIN (*CRX) 50 MG CAPSULE 200 MG PO ×3 (08:37→17:11)
[2025-06-06] MEDS: PANTOPRAZOLE 40 MG TABLET PO (08:37)
--- NOTE | 2025-06-06 14:27 | P.PNIM_ITS ---
Progress Note: A&P Assessment and Plan (1) Altered mental status: Qualifiers: Altered mental status type: disorientation Qualified Code(s): R41.0 - Disorientation, unspecified Code(s): R41.82 - Altered mental status, unspecified Status: Acute Assessment and Plan: Patient with severe chronic alcohol abuse however last alcoholic drink was in the March at which time he was admitted here at [facility] for alcohol withdrawal and since was transferred to [facility] reports no relapse. Willian manning with ataxia and memory this is likely secondary to Wernicke Korsakoff syndrome but will rule out any acute stroke. Initial head CT no intracranial process no leukocytosis, no significant electrolyte derangements, glucose 95 upon admission, UA unremarkable, UDS positive for opiates however prescribed [place], ETOH negative * check CXR, ammonia, TSH, B1, B12, and folic acid * continue B complex, folic acid, and thiamine given alcohol abuse history * no focal neurologic deficits but patient's past reporting intermittent confusion and memory loss * MRI to rule out an acute stroke however likely secondary to patient's on alcohol abuse * neurology consulted (2) Wernicke-Korsakoff syndrome (alcoholic): Code(s): F10.96 - Alcohol use, unspecified with alcohol-induced persisting amnestic disorder Status: Acute Assessment and Plan: SEE ABOVE #1 (3) Ataxia: Code(s): R27.0 - Ataxia, unspecified Status: Chronic Assessment and Plan: SEE ABOVE likely secondary to Wernicke Korsakoff syndrome * continue PT/OT while inpatient (4) Alcohol abuse: Code(s): F10.10 - Alcohol abuse, uncomplicated Status: Resolved Assessment and Plan: * last drink at the end of March in 2024, denies relapse * continue thiamine and B complex, folic acid and multivitamin (5) Chronic alcoholic liver disease: Code(s): K70.9 - Alcoholic liver disease, unspecified Status: Chronic Assessment and Plan: * LFTs and alk phos within normal limits * ammonia WNL * Trend (6) Hypertension: Qualifiers: Hypertension type: primary hypertension Qualified Code(s): I10 - Essential (primary) hypertension Code(s): I10 - Essential (primary) hypertension Status: Chronic Assessment and Plan: * continue home medications: Lisinopril * monitor per unit protocol Plan Code status: Full code per patient DVT prophylaxis: SCD's Stress ulcer prophylaxis: Protonix 40 daily PT/OT notes: PT/OT during hospitalization plan to return back to rehab discharge Disposition: Patient admitted to the medical unit for new onset intermittent confusion and memory loss will rule out acute stroke likely secondary to patient's long alcohol abuse with the development Wernicke's-Korsakoff's syndrome. Neurology consulted for further evaluation and recommendations MRI pending. Plan to return back to rehab at discharge Time Spent With Patient Time with patient: 15 - 25 minutes Subjective Date/time seen: 06/06/25 14:27 Interval history: Patient is a 50-year-old male who was admitted for further evaluation of transient confusion lasting for the last 3 days he with ataxia. Neurology consulted CT head negative MRI pending in replenished with IV piggyback multivitamin. 06/06/2025: Patient alert and oriented x3, at bedside he appears at back to baseline but does not remember coming to [facility] or days leading up to admission. 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 Review of Systems Review of Systems: All systems reviewed & are unremarkable except as noted in HPI and below Exam Narrative: LLE +4, RLE +5. +4-5 in BUE, symmetric. no overt tremor. Tremor/ataxia noted while transferring to the . A/Ox4 at present. Const: General: comfortable and no acute distress Other: , male, nontoxic appearance HENMT: Face/Nose/Sinus: Normal nares present Mouth: Yes moist mucous membranes Eyes: General: appearance normal, both eyes and all related structures Sclera: sclerae normal Pupils: Equal, round and reactive pupils present EOM: EOMs intact bilaterally Resp: Effort & Inspection: normal respiratory effort Auscultation: clear to auscultation bilaterally Cardio: Rate: regular rate Rhythm: regular rhythm Other: S1-S2 present without murmur, rub, ectopy GI: Other: Abdomen soft, nondistended, nontender. Normoactive bowel sounds in all quadrants. Skin: General skin exam: normal color and no rashes or lesions noted Wounds: no wounds Neuro: Cranial nerves: Yes Equal, round and reactive pupils present Speech: normal speech Other: LLE +4, RLE +5. +4-5 in BUE, symmetric. no overt tremor. Tremor/ataxia noted while transferring to the . A/Ox4 at present. reduced sensation in all extremities. Extrem: General: normal to inspection Psych: Mental Status: mental status grossly normal Affect: normal affect Other: Good insight and judgment at present, pleasant Objective Data Vital Signs Vital Signs: Vital Signs - 24 hr 06/05/25 14:33 06/05/25 15:01 06/05/25 15:31 Temperature Pulse Rate 76 82 81 Respiratory Rate 13 16 14 Blood Pressure 117/90 128/97 H 125/95 H Pulse Oximetry 98 98 Oxygen Delivery 06/05/25 16:01 06/05/25 17:31 06/05/25 19:22 Temperature 98.2 F Pulse Rate 81 87 89 Respiratory Rate 17 16 16 Blood Pressure 129/93 H 131/86 131/91 H Pulse Oximetry 98 97 99 Oxygen Delivery 06/05/25 20:00 06/05/25 20:33 06/06/25 00:00 Temperature 97 F L Pulse Rate 79 84 86 Respiratory Rate 16 Blood Pressure 113/84 Pulse Oximetry 99 Oxygen Delivery 06/06/25 04:00 06/06/25 04:19 06/06/25 08:00 Temperature 97.3 F L Pulse Rate 75 77 Respiratory Rate 18 Blood Pressure 116/79 Pulse Oximetry 97 Oxygen Delivery Room Air 06/06/25 08:36 06/06/25 09:12 Temperature Pulse Rate Respiratory Rate Blood Pressure 125/86 Pulse Oximetry 97 Oxygen Delivery Room Air Intake/Output Intake/Output: Intake & Output 06/03/25 06/04/25 06/05/25 06/06/25 23:59 23:59 23:59 23:59 Intake Total 1000 1560 Output Total 700 Balance 1000 860 Meds/Results Medications: Active Medications Generic Name Dose Route Start Last Admin Trade Name Freq PRN Reason Stop Dose Admin Acetaminophen 650 mg 06/05/25 17:27 Acetaminophen 325 Mg Tablet PO Q4H PRN Mild Pain (1-3) or Fever Hydrocodone Bitart/Acetaminophen 1 tab 06/05/25 19:55 Hydrocodone/Acetaminophen (*Crx) 5-325 Mg Tablet PO Q8H PRN Pain Rated 5 or Less Albuterol 1 puff 06/05/25 20:05 Albuterol Sulfate (*Sp) Aerosol 1 Puff INHALATION TID PRN Shortness Of Breath Artificial Tears 1 drop 06/05/25 19:55 Artificial Tears Ophth Soln 15 Ml Bottle EACH EYE QID PRN Dry Eye(S) Baclofen 10 mg 06/05/25 20:05 06/06/25 12:20 Baclofen 10 Mg Tablet PO 10 mg TID BR[facility]ON Administration Bisacodyl 5 mg 06/06/25 09:00 06/06/25 08:37 Bisacodyl 5 Mg Tablet Ec PO 5 mg QAM [facility] Administration Citalopram Hydrobromide 10 mg 06/06/25 09:00 06/06/25 08:37 Citalopram Hydrobromide 10 Mg Tablet PO 10 mg QAM BR[facility] Administration Duloxetine HCl 30 mg 06/05/25 21:00 06/06/25 08:37 Duloxetine Hcl 30 Mg Capsule.Dr PO 30 mg Q12HR BRYON Administration Folic Acid 1 mg 06/06/25 09:00 06/06/25 08:37 Folic Acid 1 Mg Tablet PO 1 mg DAILY BR[facility] Administration Levothyroxine Sodium 50 mcg 06/06/25 06:30 06/06/25 06:24 Levothyroxine Sodium 50 Mcg Tablet PO 50 mcg DAILY@0630 [facility] Administration Lidocaine 1 patch 06/05/25 21:00 06/05/25 20:46 Lidocaine 5% Patch TRANSDERM Not Given HS [facility] Lisinopril 20 mg 06/06/25 09:00 06/06/25 08:37 Lisinopril 20 Mg Tablet PO 20 mg DAILY [facility] Administration Lorazepam 0.5 mg 06/05/25 19:55 06/06/25 01:22 Lorazepam (*Crx) 0.5 Mg Tablet PO 0.5 mg BID PRN Administration Anxiety Multivitamins Therapeutic 1 tablet 06/06/25 09:00 06/06/25 08:37 Multivitamins Therapeutic Tab (*Bkc) PO 1 tablet DAILY [facility] Administration Ondansetron HCl 4 mg 06/05/25 17:27 Ondansetron Inj 4 Mg/2 Ml Vial IV PUSH Q4H PRN Nausea Pantoprazole Sodium 40 mg 06/06/25 09:00 06/06/25 08:37 Pantoprazole 40 Mg Tablet PO 40 mg QAM [facility] Administration Polyethylene Glycol 17 gm 06/05/25 19:55 Polyethylene Glycol 3350 17 Gm Powd.Pack PO QAM PRN Constipation Polysaccharide Iron Complex 150 mg 06/06/25 08:00 06/06/25 08:36 Polysaccharide Iron Complex 150 Mg Capsule PO 150 mg DAILY@0800 [facility] Administration Pregabalin 200 mg 06/05/25 20:10 06/06/25 12:20 Pregabalin (*Crx) 50 Mg Capsule PO 200 mg TID [facility] Administration Simethicone 125 mg 06/05/25 20:08 Simethicone 125 Mg Chew Tab PO DAILY PRN Gas Discomfort Thiamine HCl 100 mg 06/06/25 09:00 06/06/25 08:37 Thiamine Hcl 100 Mg Tablet PO 100 mg QAM [facility] Administration Vitamin B Complex 1 cap 06/06/25 09:00 06/06/25 08:37 Vitamin B Complex Capsule PO 1 cap QAM [facility] Administration Radiology Results: ITS Impressions Head CT 06/05/25 14:27 IMPRESSION: No acute intracranial process. Chest X-Ray 06/05/25 19:57 IMPRESSION: No acute cardiopulmonary process. Labs Labs: Laboratory Results - last 24 hr 06/05/25 06/05/25 06/05/25 13:27 15:26 19:31 WBC RBC Hgb Hct MCV MCH MCHC RDW Plt Count MPV Immature Gran % (Auto) Neut % (Auto) Lymph % (Auto) [place] % (Auto) Eos % (Auto) Baso % (Auto) Lymph # (Auto) [place] # (Auto) Eos # (Auto) Baso # (Auto) Abs Immat Gran (auto) Absolute Neuts (auto) Absolute Nucleated RBC Nucleated RBC % Sodium Potassium Chloride Carbon Dioxide Anion Gap BUN Creatinine Estim Creat Clear Calc Estimated GFR Glucose Calcium Magnesium Total Bilirubin AST ALT Alkaline Phosphatase Ammonia < 9 L Total Protein Albumin Vitamin B12 914.0 919.0 Folate > 20.0 H TSH (Reflex) 0.391 L Free T4 1.20 Total T3 1.27 Urine Color Yellow Urine Appearance Clear Urine pH 6.5 Ur Specific [place] 1.013 Urine Protein Negative Urine Glucose (UA) Negative Urine Ketones Negative Ur Blood (Man) Negative Urine Nitrate Negative Urine Bilirubin Negative Urine Urobilinogen 0.2 Leukocyte Esterase Rfl Negative Urine Opiates Screen Positive A Urine Methadone Screen Negative Ur Barbiturates Screen Negative Ur Phencyclidine Scrn Negative Ur Amphetamine Screen Negative U Benzodiazepines Scrn Negative Urine Cocaine Screen Negative U Cannabinoids Screen Negative 06/06/25 04:57 WBC 6.2 RBC 3.61 L Hgb 10.1 L Hct 33.1 L MCV 91.7 MCH 28.0 MCHC 30.5 L RDW 14.0 Plt Count 197 MPV 11.6 H Immature Gran % (Auto) 0.2 Neut % (Auto) 60.9 Lymph % (Auto) 27.3 [place] % (Auto) 9.0 H Eos % (Auto) 1.8 Baso % (Auto) 0.8 Lymph # (Auto) 1.69 [place] # (Auto) 0.6 Eos # (Auto) 0.1 Baso # (Auto) 0.1 Abs Immat Gran (auto) 0.01 Absolute Neuts (auto) 3.8 Absolute Nucleated RBC 0.000 Nucleated RBC % 0.0 Sodium 136 L Potassium 4.1 Chloride 102 Carbon Dioxide 28 Anion Gap 6 BUN 14 Creatinine 0.82 Estim Creat Clear Calc 94 Estimated GFR > 60 Glucose 117 H Calcium 9.4 Magnesium 2.0 Total Bilirubin 0.3 AST 24 ALT 15 Alkaline Phosphatase 70 Ammonia Total Protein 6.6 Albumin 3.7 Vitamin B12 Folate TSH (Reflex) Free T4 Total T3 Urine Color Urine Appearance Urine pH Ur Specific [place] Urine Protein Urine Glucose (UA) Urine Ketones Ur Blood (Man) Urine Nitrate Urine Bilirubin Urine Urobilinogen Leukocyte Esterase Rfl Urine Opiates Screen Urine Methadone Screen Ur Barbiturates Screen Ur Phencyclidine Scrn Ur Amphetamine Screen U Benzodiazepines Scrn Urine Cocaine Screen U Cannabinoids Screen Quality VTE Prophylaxis VTE prophylaxis: mechanical ordered -Patient's previous records reviewed on admission -ER notes reviewed in detail on admission -discussed all findings and current treatment plan with patient/Family/POA -Consultations reviewed for recommendations -Patient's disposition for safe discharge discussed with case management coordinator Dictation performed by [employer] direct speech recognition software, therefore client support administrator variants and typographical errors may occur. Hospitalist MIPS Advance Care Plan I have confirmed that the patient's Advanced Care Plan is present, code status is documented, or surrogate decision maker is listed in patient medical record.: Yes Medication Reconciliation I have utilized all available resources to obtain, update and review the patients current medications (includes all prescriptions, OTC, herbals, cannabis, and nutritional supplements).: Yes The patient is not eligible for med reconciliation; the patient is in a emergent medical situation where delaying treatment would jeopardize the patients health.: No
--- NOTE | 2025-06-06 16:46 | P.CONNEU_ITS ---
Assessment and Plan Assessment and plan (1) Altered mental status: Qualifiers: Altered mental status type: disorientation Qualified Code(s): R41.0 - Disorientation, unspecified Code(s): R41.82 - Altered mental status, unspecified Status: Acute (2) Ataxia: Code(s): R27.0 - Ataxia, unspecified Status: Chronic (3) Peripheral neuropathy: Code(s): G62.9 - Polyneuropathy, unspecified Status: Acute (4) Alcohol abuse: Code(s): F10.10 - Alcohol abuse, uncomplicated Status: Resolved (5) Chronic alcoholic liver disease: Code(s): K70.9 - Alcoholic liver disease, unspecified Status: Chronic (6) Tobacco abuse: Code(s): Z72.0 - Tobacco use Status: Chronic Plan I reviewed his previous and current records. I will suggest to discontinue baclofen which had headache side effects and can sometimes lead to confusional state although he is on a fairly low dose. He is also on pregabalin 200 mg 3 times a day. His girlfriend told me that he needs something for the pain and I think that day baclofen is not recommended for tear pregabalin should help. Also duloxetine 30 mg a day. His mental status is better than yesterday. I will suggest to continue follow-up. He has also been given thiamine supplement. Possibility of Korsakoff psychosis has been considered however I do not see any evidence for confabulation. If there is any further decline in the mental status further steps can be taken to investigate. His clinical follow-up is recommended. Consult date: 06/06/25 HPI: Tyree Rodriguez is a 50 year old male With history of chronic alcoholism and ataxia presented to the hospital with change in mental status for last 3 days. His girlfriend was also present at the time of the evaluation. Still apparently doing fairly well in rehab but he continued to have difficulty walking. He has been at the rehab for last 4 weeks and apparently has not had any alcoholic drink. Today he is slightly better than yesterday according to his fiancee. Patient does smoke. On 1 of the previous admission I had seen him. Spine performed April 02, 2025 shown a protein of 195 however the no significant WBC noted. MRI of the cervical and thoracic spine did not show evidence for myelopathy. Degenerative changes were seen lumbar spine. EEG performed 04/06/2025 did not show any significant abnormality. On 1 of the previous admission serum sodium was very low at 119 however on this occasion is serum sodium is fairly close to normal. I noted that he was started on baclofen with a note that today this is being given for spasticity. He has not had any passing out spell. He is known to have liver disease and is also smoker. CT scan of brain and regular last performed on this admission did not show any significant abnormality. Previous MRI of the brain performed 04/01/2000 25 has shown a right frontal lesion probably ischemic in nature. Korsakoff psychosis was considered and he was given some B1 implement. Liver enzymes were normal. Serum ammonia level was normal. Patient denies any diplopia or difficulty speech or swallowing. However continues to have difficulty walking. Review of Systems 2 Review of Systems: All systems reviewed & are unremarkable except as noted in HPI and below PMFSH Past Medical History Medical History (Updated 06/06/25 @ 16:54 by Cb Knowles MD) Peripheral neuropathy Chronic alcoholic liver disease Rectal bleeding Secondary to rectal ulcer Peripheral neuropathy Alcohol withdrawal syndrome Neuropathy Chronic hyponatremia Hepatic steatosis Noted on CT scan 06/2022 Tobacco abuse Hypertension Asthma Anxiety Surgical History Surgical History H/O knee surgery H/O spinal fusion Family History Family History Other Family history non-contributory Social History Social History Social History: The patient lives with his significant other. He has 2 daughters. He has smoked 1 pack per day since he was a teenager. He has a history of heavy alcohol use drinking up to 1 5th of vodka every other day with recent decrease in alcohol consumption down to 2-3 beers a day on weekdays and 10 beers a day on weekends. 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 The patient smokes marijuana nightly. Code status: Full code Smoking packs per day: 0.75 Smoking cigarettes per day: 15.0 Years smoked: 35 Smoking pack-years: 26.25 Smoking status: Current every day smoker Tobacco type: cigarettes Alcohol intake: never Drinks per week: 20 Alcohol use details: social Substance use: never Substance use type: marijuana Last use: 03/29/2025 Do You Feel Safe in your Home?: Yes Lack of Transportation: No Lack of Food: Never True Current Housing: I Have Housing Concerned About Future Housing: No Difficulty Paying Gas/Electric Bills: No Difficulty Paying for Meds: No Currently Unemployed: No Education: Trade/Vocational Certificate Difficulty w/ Childcare or Family Care: No Living arrangements: with family Gender identity (if verbalized by the patient): Male Spiritual care concerns: No Meds Home Medications and Allergies Home Medications ?Medication ?Instructions ?Recorded ?Confirmed ?Type albuterol 90 mcg/actuation aerosol 90 mcg inhalation TID PRN 06/12/22 06/05/25 History inhaler Shortness Of Breath lisinopril 20 mg tablet 20 mg PO DAILY 07/23/24 06/05/25 History omeprazole 20 mg tablet,delayed 20 mg PO DAILY #60 tabs 09/21/24 06/05/25 Rx release hydrocodone 5 mg-acetaminophen 325 1 tablet PO Q8H PRN pain #7 tabs 02/22/25 06/05/25 Rx mg tablet methocarbamol 750 mg tablet 750 mg PO TID PRN muscle spasm #14 02/22/25 06/05/25 Rx tabs folic acid 1 mg tablet 1 mg PO DAILY 03/30/25 06/05/25 History levothyroxine 50 mcg tablet 50 mcg PO DAILY 03/30/25 06/05/25 History bisacodyl 5 mg tablet,delayed 5 mg PO QAM 30 days #30 tabs 04/21/25 06/05/25 Rx release (Laxative (bisacodyl)) citalopram 20 mg tablet (Celexa) 10 mg (1/2 x 20 mg) PO QAM 30 days 04/21/25 06/05/25 Rx #15 tabs duloxetine 30 mg capsule,delayed 30 mg PO Q12HR 30 days #60 caps 04/21/25 06/05/25 Rx release (Cymbalta) multivitamin 1 tablet PO DAILY #30 tabs 04/21/25 06/05/25 Rx peg [id number] 1 1 drp EACH EYE QID PRN Dry Eye(S) 04/21/25 06/05/25 Rx %-0.2 %-0.2 % eye drops 30 days #15 mL (Artificial Tears ([id number])) thiamine HCl (vitamin B1) 100 mg 100 mg PO QAM 30 days #30 tabs 04/21/25 06/05/25 Rx tablet (Vitamin B-1) baclofen 5 mg tablet 10 mg PO TID spastic movements 04/25/25 06/05/25 History lidocaine 5 % topical patch 1 patch transdermal HS #15 ea 05/05/25 06/05/25 Rx (Lidoderm) lorazepam 0.5 mg tablet 0.5 mg PO BID PRN Anxiety #10 tabs 05/05/25 06/05/25 Rx polyethylene glycol 3350 17 gram 17 g PO QAM PRN Constipation #30 ea 05/05/25 06/05/25 Rx oral powder packet (Miralax) polysaccharide iron complex 150 mg 150 mg PO DAILY@0800 #30 caps 05/05/25 06/05/25 Rx iron capsule simethicone 40 mg/0.6 mL oral 1.8 ml PO ONCE PRN Gas Discomfort 05/05/25 06/05/25 Rx drops,suspension (Infants Gas #5 mL Relief) vitamin B complex (Vitamins B 1 cap PO QAM #90 caps 05/05/25 06/05/25 Rx Complex capsule) pregabalin 75 mg capsule (Lyrica) 200 mg PO TID 06/05/25 06/05/25 History Allergies Allergy/AdvReac Type Severity Reaction Status Date / Time tramadol AdvReac Intermediate Agitated Verified 06/05/25 18:22 vancomycin AdvReac Unknown tingling Verified 06/05/25 18:22 Vital Signs Vital Signs - 24 hr 06/05/25 17:31 06/05/25 19:22 06/05/25 20:00 Temperature 98.2 F Pulse Rate 87 89 79 Respiratory Rate 16 16 Blood Pressure 131/86 131/91 H Pulse Oximetry 97 99 Oxygen Delivery 06/05/25 20:33 06/06/25 00:00 06/06/25 04:00 Temperature 97 F L Pulse Rate 84 86 75 Respiratory Rate 16 Blood Pressure 113/84 Pulse Oximetry 99 Oxygen Delivery 06/06/25 04:19 06/06/25 08:00 06/06/25 08:00 Temperature 97.3 F L Pulse Rate 77 83 Respiratory Rate 18 Blood Pressure 116/79 Pulse Oximetry 97 Oxygen Delivery Room Air 06/06/25 08:36 06/06/25 09:12 06/06/25 12:00 Temperature Pulse Rate 84 Respiratory Rate Blood Pressure 125/86 Pulse Oximetry 97 Oxygen Delivery Room Air 06/06/25 14:00 06/06/25 14:05 06/06/25 16:00 Temperature 97.4 F L Pulse Rate 101 H 98 Respiratory Rate 16 Blood Pressure 110/75 Pulse Oximetry 100 Oxygen Delivery Room Air Exam 2 Narrative: Fully conscious alert oriented to self time place and person. Speech is fluent and articulate. . Patient follows commands fairly well. When asked to name 5 cities he had 4/5. When asked to name 5 fast food restaurant he did 3/5. When asked to name 5 colors he did 5/5. He did the month and the year. examination head and neck shows no evidence of external trauma. No nuchal rigidity. No carotid bruit. Cranial nerves examination shows pupils were equal react to light. Visual lind and extraocular movements are intact. There is no facial asymmetry. Facial sensation intact. Other cranial nerves are normal limits. Motor system normal power and tone in both upper and lower limbs however his intention tremor of the left upper and both lower limbs. Gait was not tested at this time. Deep tendon reflexes did not appear brisk in the lower limbs. No evidence for spasticity. Sensory action grossly intact. No cogwheeling or any other involuntary movements seen this time. Results Labs 06/06/25 04:57 06/06/25 04:57 Labs: Short CBC 06/06/25 Range/Units 04:57 WBC 6.2 (4.5-10.0) K/mm3 Hgb 10.1 L (14.0-18.0) g/dL Hct 33.1 L (42.0-52.0) % Plt Count 197 (150-375) k/mm3 BMP 06/06/25 04:57 Sodium 136 L Potassium 4.1 Chloride 102 Carbon Dioxide 28 BUN 14 Creatinine 0.82 Glucose 117 H Calcium 9.4 Liver Function 06/06/25 Range/Units 04:57 Total Bilirubin 0.3 (0.2-1.3) mg/dL AST 24 (17-59) U/L ALT 15 (6-50) U/L Alkaline Phosphatase 70 (38-126) U/L Albumin 3.7 (3.5-5.1) g/dL Imaging Attestation: I personally reviewed and interpreted this imaging study as follows: ( CT scan of the brain) My impression: chronic changes were noted however no acute findings were noted. Radiologist's impression: Same
[2025-06-06] MEDS: HYDROcodone/acetaminophen (*CRX) 5-325 MG TABLET 1 TAB PO (18:03)
[2025-06-06] MEDS: LIDOCAINE 5% PATCH 1 PATCH TRANSDERM (21:20)
[2025-06-06] MEDS: ACETAMINOPHEN 325 MG TABLET 650 MG PO (21:25)
[2025-06-07] VITALS: PULSE 94
[2025-06-07] MEDS: HYDROcodone/acetaminophen (*CRX) 5-325 MG TABLET 1 TAB PO ×2 (02:02→10:00)
[2025-06-07 04:00] VITALS: PULSE 70
[2025-06-07 04:42] VITALS: BP 112/83; PULSE 79; RESP 16; TEMP 36.4; O2SAT 92
[2025-06-07] MEDS: LEVOTHYROXINE SODIUM 50 MCG TABLET PO (06:08)
[2025-06-07 08:00] VITALS: PULSE 81
[2025-06-07] MEDS: BISACODYL 5 MG TABLET EC PO (08:49)
[2025-06-07] MEDS: VITAMIN B COMPLEX CAPSULE 1 CAP PO (08:50)
[2025-06-07] MEDS: MULTIVITAMINS THERAPEUTIC TAB (*BKC) 1 TABLET PO (08:50)
[2025-06-07] MEDS: THIAMINE HCL 100 MG TABLET PO (08:50)
[2025-06-07] MEDS: PREGABALIN (*CRX) 50 MG CAPSULE 200 MG PO ×2 (08:50→12:11)
[2025-06-07] MEDS: PANTOPRAZOLE 40 MG TABLET PO (08:50)
[2025-06-07] MEDS: FOLIC ACID 1 MG TABLET PO (08:50)
[2025-06-07] MEDS: CITALOPRAM HYDROBROMIDE 10 MG TABLET PO (08:50)
[2025-06-07 12:00] VITALS: PULSE 103
[2025-06-07 14:00] VITALS: BP 104/71; PULSE 79; RESP 16; TEMP 36.6; O2SAT 98
--- NOTE | 2025-06-07 14:02 | P.DS_ITS ---
DS: Admitting Diagnosis Discharge Date 06/07/2025 Admitting Diagnosis AMS/Transient confusion/Memory loss/Ataxia DS: Discharge Diagnosis Discharge Diagnosis (1) Altered mental status: Qualifiers: Altered mental status type: disorientation Qualified Code(s): R41.0 - Disorientation, unspecified Code(s): R41.82 - Altered mental status, unspecified Status: Acute (2) Wernicke-Korsakoff syndrome (alcoholic): Code(s): F10.96 - Alcohol use, unspecified with alcohol-induced persisting amnestic disorder Status: Acute (3) Ataxia: Code(s): R27.0 - Ataxia, unspecified Status: Chronic (4) Alcohol abuse: Code(s): F10.10 - Alcohol abuse, uncomplicated Status: Resolved (5) Chronic alcoholic liver disease: Code(s): K70.9 - Alcoholic liver disease, unspecified Status: Chronic (6) Hypertension: Qualifiers: Hypertension type: primary hypertension Qualified Code(s): I10 - Essential (primary) hypertension Code(s): I10 - Essential (primary) hypertension Status: Chronic DS: Summary Hospital Course Reason for hospitalization: AMS/Transient confusion/Memory loss/Ataxia Hospital Course: Admission: Patient was a 50 y/o M with PMH of alcohol abuse/heavy alcohol use, essential hypertension, GERD, hepatic steatosis, rectal ulcer, asthma and tobacco use presents here with confusion. [facility] confusion. The patient and his significant other provided the following history. The patient has had intermittent/transient confusion for the past 3 days. He is currently residing at [facility] for rehab post admission for alcohol withdrawal, alcoholic induced peripheral neuropathy with significant vitamin deficiencies, and ataxia. Per the patient's significant other he has been doing well and participating in therapy as well as taking his daily medications at this facility. However within the last 3 days he has become more confused, not remembering events over the last month, not remembering his previous hospitalization, or his 3 weeks at rehab. Patient is also experiencing some confusion about his home life, for example did not remember his dogs that live at home with him and his fiancee. Confusion is accompanied potentially by diarrhea/upset stomach on Saturday/Saturday but patient cannot recall, collateral given by son. He denies chest pain, abdominal pain, nausea, vomiting, diarrhea, fever, chills, body aches, dizziness, or headache. Of note, the patient continues to have limited ability to walk without significant assistance or with a walker due to his peripheral neuropathy in his bilateral upper extremities and lower extremities. Last alcohol intake on at the end of March of 2025 prior to his admission. ED workup showed: No leukocytosis, hemoglobin 11.2, normal coags, no significant electrolyte derangements, creatinine 0.74 and GFR >60, TSH 0.391 with T4 pending. UA unremarkable. UDS positive for opiates, otherwise unremarkable. ETOH negative. Head CT showed no acute intracranial process. Hospital Course: Patient was admitted to the medical unit for further evaluation for transient intermittent confusion and memory loss. CT head with no intracranial process did order an MRI which showed no significant abnormalities. Neurology was consulted who suggested to discontinue baclofen which had headache side effects and can sometimes lead to confusional state although he is on a fairly low dose. He is also on pregabalin 200 mg 3 times a day. Patient to follow-up outp atient and if symptoms persist If there is any further decline in the mental status to investigate for possible of Korsakoff psychosis but no current evidence for confabulation. patient received IV vitamin supplement with improvement. Patient seen day of discharge back to baseline labs reviewed and and desirable ranges and vital stable. patient was discharged back to [facility]. Status at Discharge Functional status at discharge: uses cane/walker Overall status at discharge: patient is progressing back to baseline Time Spent with Patient Time attestation: Total time spent providing and/or coordinating discharge services: Time spent: Greater than 30 minutes Exam Const: General: comfortable and no acute distress Other: , male, nontoxic appearance HENMT: Face/Nose/Sinus: Normal nares present Mouth: Yes moist mucous membranes Eyes: General: appearance normal, both eyes and all related structures Sclera: sclerae normal Pupils: Equal, round and reactive pupils present EOM: EOMs intact bilaterally Resp: Effort & Inspection: normal respiratory effort Auscultation: clear to auscultation bilaterally Cardio: Rate: regular rate Rhythm: regular rhythm Other: S1-S2 present without murmur, rub, ectopy GI: Other: Abdomen soft, nondistended, nontender. Normoactive bowel sounds in all quadrants. Skin: General skin exam: normal color and no rashes or lesions noted Wounds: no wounds Neuro: Cranial nerves: Yes Equal, round and reactive pupils present Speech: normal speech Other: LLE +4, RLE +5. +4-5 in BUE, symmetric. no overt tremor. Tremor/ataxia noted while transferring to the . A/Ox4 at present. reduced sensation in all extremities. Extrem: General: normal to inspection Psych: Mental Status: mental status grossly normal Affect: normal affect Other: Good insight and judgment at present, pleasant DS: Data Imaging Radiologist's impression: Radiology Results: ITS Impressions Head CT 06/05/25 14:27 IMPRESSION: No acute intracranial process. Chest X-Ray 06/05/25 19:57 IMPRESSION: No acute cardiopulmonary process. Discharge Plan Discharge Attending physician on discharge: Agustin Lopez Consulting providers: Cb Knowles; Rodriguez Shipley; Maricruz Gomez; Jordan Díaz; Jesus Hanley Discharging Clinician: Kylee Mccullough Anticipated Discharge Date/Time: 06/07/25 08:38 Patient Disposition: SNF Activity: as tolerated Diet: regular Discharge Instructions: 1). Transient confusion * likely secondary to long-term alcohol use however it was recommended by Neurology to discontinue your baclofen which I will discontinue at this time continue to take your Lyrica * there is some concern for Korsakoff psychosis if your mental status and confusion continued to decline is recommended to follow-up with Neurology outpatient for further evaluation * continue taking your multivitamin, thiamine, folic acid, and vitamin-B complex How can you care for yourself at home? ? Keep track of any new symptoms or changes in your symptoms. ? Rest until you feel better. ? Be safe with medicines. Take your medicines exactly as prescribed. Call your doctor if you think you are having a problem with your medicine. ? Do not drive after taking a prescription pain medicine. ? Ensure to follow-up with primary care physician as indicated and provide updated medication list provided to you at discharge. When should you call for help? Call 911 anytime you think you may need emergency care. For example, call if: ? You passed out (lost consciousness). Call your doctor now or seek immediate medical care if: ? You have new symptoms like fever, difficulty breathing, Chest pain, vomiting, or rash. ? You have new or different pain. ? You are confused and are having trouble thinking clearly. ? Your symptoms are getting worse. Watch closely for changes in your health, and be sure to contact your doctor if: ? You do not get better as expected. Patient Language: Honduran Stand Alone Forms: General Discharge Information, Senior Living Discharge Follow-up/Referrals: Cb Knowles MD [Physician] - Call for Appointment (As needed ) UNKNOWN,DOCTOR [Primary Care Provider] - Call for Appointment (Follow-up with PCP after rehab) Discharge Medications: Continued lisinopril 20 mg tablet 20 mg PO DAILY Patient Comments: Patient reports he has not been taking it as he should albuterol 90 mcg/actuation Aerosol 90 mcg INHALATION TID PRN (Reason: Shortness Of Breath) omeprazole 20 mg tablet,delayed release (DR/EC) 20 mg PO DAILY Qty: 60 0RF folic acid 1 mg tablet 1 mg PO DAILY levothyroxine 50 mcg tablet 50 mcg PO DAILY thiamine HCl (vitamin B1) [Vitamin B-1] 100 mg Tablet 100 mg PO QAM 30 Days Qty: 30 1RF citalopram [Celexa] 20 mg Tablet 10 mg PO QAM 30 Days Qty: 15 1RF bisacodyl [Laxative (bisacodyl)] 5 mg Tablet,Delayed Release (Dr/Ec) 5 mg PO QAM 30 Days Qty: 30 0RF Artificial Tears(ba-joqx-njwh) 1-0.2-0.2 % Drops 1 drp EACH EYE QID PRN (Reason: Dry Eye(S)) 30 Days Qty: 15 0RF duloxetine [Cymbalta] 30 mg Capsule,Delayed Release(Dr/Ec) 30 mg PO Q12HR 30 Days Qty: 60 1RF multivitamin Tablet 1 tablet PO DAILY Qty: 30 1RF pregabalin [Lyrica] 75 mg Capsule 200 mg PO TID hydrocodone-acetaminophen 5-325 mg tablet 1 tablet PO Q8H PRN (Reason: pain) Qty: 7 0RF polyethylene glycol 3350 [Miralax] 17 gram Powder In Packet 17 g PO QAM PRN (Reason: Constipation) Qty: 30 0RF polysaccharide iron complex 150 mg iron Capsule 150 mg PO DAILY@0800 Qty: 30 0RF lorazepam 0.5 mg Tablet 0.5 mg PO BID PRN (Reason: Anxiety) Qty: 10 0RF lidocaine [Lidoderm] 5 % Adhesive Patch,Medicated 1 patch transdermal HS Qty: 15 0RF simethicone [Infants Gas Relief] 40 mg/0.6 mL Drops,Suspension 1.8 ml PO ONCE PRN (Reason: Gas Discomfort) Qty: 5 0RF vitamin B complex [Vitamins B Complex] Capsule 1 cap PO QAM Qty: 90 0RF Discontinued methocarbamol 750 mg tablet 750 mg PO TID PRN (Reason: muscle spasm) Qty: 14 0RF baclofen 5 mg tablet 10 mg PO TID Date of admission: 06/05/25 17:27 Primary Care Provider: UNKNOWN,DOCTOR Admitting Provider: Agustin Lopez Attending physician on admission: Kylee Mccullough Condition: Stable Quality VTE Prophylaxis VTE prophylaxis: mechanical ordered -Patient's previous records reviewed on admission -ER notes reviewed in detail on admission -discussed all findings and current treatment plan with patient/Family/POA -Consultations reviewed for recommendations -Patient's disposition for safe discharge discussed with pillowcase sewer Dictation performed by [employer] direct speech recognition software, ther efore salt maker variants and typographical errors may occur. Hospitalist MIPS Heart Failure (Exclusion) Patient has history of Heart Transplant or Left Ventricular Assistive Device?: No IF YES, STOP HERE Heart Failure (Qualifier) Patient has current or prior documentation of LVEF less than or equal to 40%, or mod/servere depressed LVSF?: No IF NO, STOP HERE
[2025-06-09 13:09] LABS: Vit. B1, Whole Blood 249.8 nmol/L (66.5-200.0)
== END 2025-06-07 14:30 | DRG 775 ==
LOC: ANHED 13:37 → ANH2MED 17:54
PROVIDERS: Student in an Organized Health Care Education/Training Program; Admitting Provider Internal Medicine; Emergency Provider Student in an Organized Health Care Education/Training Program; Visit Provider Nurse Practitioner Family
DX: F10.96 Alcohol use, unspecified with alcohol-induced persisting amnestic disorder (principal); I10 Essential (primary) hypertension; G62.9 Polyneuropathy, unspecified; E87.1 Hypo-osmolality and hyponatremia; K70.9 Alcoholic liver disease, unspecified; K76.0 Fatty (change of) liver, not elsewhere classified; R27.0 Ataxia, unspecified; J45.909 Unspecified asthma, uncomplicated; F41.9 Anxiety disorder, unspecified; F12.90 Cannabis use, unspecified, uncomplicated; Z72.0 Tobacco use; Z98.1 Arthrodesis status
CPT/HCPCS: 36415; 70450; 70551; 71046; 80053; 80307; 81003; 82077; 82140; 82607; 82746; 83735; 84425; 84439; 84443; 84480; 85025; 85610; 85730; 93005; 96361; 96374; 96375; 97162; 97166; 99285; A9270; J3411; J7030; J7120

== ENCOUNTER 2025-08-26 20:33 | Emergency (ER) | payer OTHER, SELFPAY ==
--- NOTE | ~2025-08-26 | XR_ITS ---
XR chest 1V portable INDICATION:Chest pain . REFERENCE: None FINDINGS: A single AP of the chest demonstrates normal heart size. The lungs are clear. There is no evidence of pneumothorax or pleural effusion. IMPRESSION: No acute pulmonary findings. Reviewed, dictated and finalized at location S.
--- OUTSIDE RECORDS SUMMARY | 2025-08-26 20:36 | XMS_ITS | Clinical Summary ---
Author Organization [facility] Address [address] [place] [address] Care Team Providers Care Crystallizer Operator Name Role Phone Fareed Nuñez MD Primary Care Provider Zafar Washington MD Unavailable [phone] Source Comments [facility],non-owned Affiliates and Associated Physician Practices is amultiple site organization consisting of ambulatory clinics and hospital sitesin [place], [place], [place] and [place]. This disclosure is being madepursuant to the Care Everywhere program and may not contain all information available regarding this patient. 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 Not on file Not [...] of 3 - 19+ 3-dose series) 1994 PNEUMOCOCCAL VACCINE 50+ (1 of 2 - PCV) 1994 ZOSTER VACCINE (1 of 2) 2025 COVID-19 VACCINE (5 - 2024- season) 2025 03/01/2021, 03/01/2021, 02/08/2021, Additional history exists INFLUENZA VACCINE (#1) 2025 , 07/25/2018, 07/30/2017, Additional history exists LIPID TESTING [...] this topic Medical Devices Implanted Type Area Armature And Rotor Winder Device Identifier Shelf Expiration Date Model / Serial / Lot Putty Dbm Progenix 5cc Implanted:Qty: 1 on 02/04/2013 by Diogenes Stuart MD at [facility] Spine Lumbar Spinal [employer] 07/09/2014 [id number] / / [id number] Lordotic Implant 15 Mm D X 20mm L Implanted:Qty: 1 on 02/04/2013 by Diogenes Stuart MD at [facility] Spine Lumbar 01/16/2017 [id number]- 00 / / [id number] 37 Mm X 65 Mm Plate Jam Implanted:Qty: 1 on 02/04/2013 by Diogenes Stuart MD at [facility] Spine Lumbar 07.53729.0 03 / / Jam 26 Mm Variable Screws Implanted:Qty: 6 on 02/04/2013 by Diogenes Stuart MD at [facility] Spine Lumbar 07.61475.0 03 / / Jam 24 Mm Variable Screws Implanted:Qty: 2 on 02/04/2013 by Diogenes Stuart MD at [facility] Spine Lumbar 07.63766.0 02 / / Scrw Can Full Thrd 4mm X 24mm Implanted:Qty: 1 on 02/04/2013 at [facility] Synthes [employer] 206.024 / / Putty Grft Bone Dbm Progenix 10cc Implanted:Qty: 1 on 02/04/2013 by Diogenes Stuart MD at [facility] Spine Lumbar Medtronic Sofamor Danek Inc 07/28/2014 [id number] / / [id number] Putty Grft Bone Dbm Progenix 10cc Implanted:Qty: 1 on 02/04/2013 by Diogenes Stuart MD at [facility] Spine Lumbar Medtronic Sofamor [employer] 10/08/2014 [id number] / / [id number] Jam Spine Interbody Implant 15 Mm D X 20 Mm L Implanted:Qty: 1 on 02/04/2013 by Diogenes Stuart MD at [facility] Spine Lumbar 09/18/2017 07.62613.0 22 / / [id number] Jam Spine Interbody Implant 15 Mm D X 20 Mm L Implanted:Qty: 1 on 02/04/2013 by Diogenes Stuart MD at [facility] Spine Lumbar 01/16/2015 [id number] 00 / / [id number] Jam Interbody Implant 15 Mm D X 20 Mm L Implanted:Qty: 1 on 02/04/2013 by Diogenes Stuart MD at [facility] Spine Lumbar 09/18/2017 [id number] 22 / / [id number] Jam Spine Interbody Implant 15 Mm S X 20 Mm L Implanted:Qty: 1 on 02/04/2013 by Diogenes Stuart MD at [facility] Spine Lumbar 11/18/2015 [id number] 00 / / [id number] Jam Plate 37 Mm X 16 Implanted:Qty: 2 on 02/04/2013 by Diogenes Stuart MD at [facility] Spine Lumbar 07.70629.0 03 / / Lordotic Interbody Implant 15 Mm D X 20 Mml Implanted:Qty: 1 on 02/04/2013 by Diogenes Stuart MD at [facility] Spine Lumbar 01/16/2017 [id number] 00 / / [id number] Procedures Procedure Name Priority Date/Time Associated Diagnosis [...] stool LIPID PROFILE Routine 10/31/2020 2:55 PM DISPATCHER SERVICE CHIEF Benign essential hypertension Screening, lipid from Last [...] a test for HCV RNA (test code 00050) is suggested. For additional information please refer to http://education.[employer].Meusonic/faq/SIC55p5 (This link is being provided for informational/ educational purposes only.) Test Performed at: [facility] [address] [address] [place] [address] JENNIFER HOOVER MD Blood BLOOD SPECIMEN / Unknown 02/11/2025 11:13 AM CDT 02/11/2025 11:14 AM CDT Fareed Nuñez MD LAB - CHEMISTRY ORDERABLES F inal Result Performing Organization Address [facility] Co de Phone Number [facility] [address] [place] [address] * HIV-1 HIV-2 ANTIBODY + HIV P24 AG PANEL (02/11/2025 11:05 AM CDT) [facility] HIV Screen 4th Generation w Reflex NON-REACT SHELLIE NON-REACT SHELLIE [facility] Comment: HIV-1 antigen and HIV-1/HIV-2 antibodies were [...] purpose. For additional information please refer to http://education.[employer].Meusonic/faq/FCG703 (This link is being provided for informational/ educational purposes only.) The performance of this assay has not been clinically validated in patients less than 2 years old. Test Performed at: [facility] [address] [employer] [address] JENNIFER HOOVER MD Blood BLOOD SPECIMEN / Unknown 02/11/2025 11:05 AM CDT 02/11/2025 11:05 AM CDT Fareed Nuñez MD LAB - CHEMISTRY ORDERABLES F inal Result Performing Organization Address [facility] Co de Phone Number [facility] [address] [place] [address] * HEMOGLOBIN A1C (HgbA1C) (02/11/2025 11:05 AM [...] diagnosis of diabetes in children. According to [place] Diabetes Association (ADA) guidelines, hemoglobin A1c <7.0% represents optimal control in non- diabetic patients. Different metrics may apply to specific patient populations. Standards of Medical Care in Diabetes(ADA). Test Performed at: [facility] [address] JENNIFER HOOVER MD Blood BLOOD SPECIMEN / Unknown 02/11/2025 11:05 AM CDT 02/11/2025 11:05 AM CDT us Fareed Nuñez MD LAB - CHEMISTRY ORDERABLES F inal Result [address] [address] * ENDOSCOPY, COLON, DIAGNOSTIC (06/04/2023 8:11 AM CDT) Report Endoscopy POC _ Patient Name: Jennifer Rodriguez Procedure Date: 06/04/2023 8:11 AM Date of : 1975 Admit Type: Outpatient Age: 48 Gender: Male Attending MD: Fariha Aceves MD, [id number] _ Procedure: Colonoscopy Indications: Screening for colorectal [...] bowel preparation was evaluated using the BBPS ([place] Bowel Preparation Scale) with scores of: Right [...] pathology results. Procedure Code(s): --- Professional --- 24126, Colonoscopy, flexible; with biopsy, single or multiple --- Technical --- 26401, Colonoscopy, flexible; with biopsy, single or multiple Diagnosis Code(s): --- Professional --- Z12.11, Encounter for screening for malignant neoplasm of colon K64.8, Other hemorrhoids D12.8, Benign neoplasm of rectum --- Technical --- Z12.11, Encounter for screening for malignant neoplasm of colon K64.8, Other hemorrhoids D12.8, Benign neoplasm of rectum CPT copyright 2020 [employer]. All rights reserved. The codes documented in this report are preliminary and upon program development manager review may be revised to meet current compliance requirements. __ Fariha Aceves MD 06/04/2023 9:38:20 AM Number of Addenda: 0 Note Initiated On: 06/04/2023 8:11 AM [facility] END[facility] 06/04/2023 8:11 AM CDT us Tiki Lam TRUSS MAKER-PLASTICS SCIENTIST GI PROCEDURE ORDERABLES Edited Result - [place] [address] * (ABNORMAL) LIPID PROFILE (10/31/2020 2:55 PM DISPATCHER SERVICE CHIEF) Cholesterol 281(H) <200 mg/dL [facility] ACCOUNT BILL Triglycerides 107 <150 mg/dL [facility] ACCOUNT BILL HDL Cholesterol 121 >40 mg/dL [facility] ACCOUNT BILL VLDL Calculated 21 <=30 mg/dL [facility] ACCOUNT BILL LDL Calculated 139(H) <130 mg/dL [facility] ACCOUNT BILL Comment:FASTING Blood BLOOD SPECIMEN / Unknown 10/31/2020 2:55 PM DISPATCHER SERVICE CHIEF 10/31/2020 Narrative Resulting Agency Comment Lab Testing performed at: [address] [id number] us Fareed Nuñez MD LAB - CHEMISTRY ORDERABLES F inal Result [facility] ACCOUNT BILL [address] [place] [address] from Last 3 Months or Most Recently Relevant to Health Maintenance Insurance COMMERCIAL GENERIC * Guarantor: JENNIFER RODRIGUEZ Account Type Relation to Patient Date of Phone Billing Address Personal/Family [id number] [address] * Guarantor: JENNIFER RODRIGUEZ Account Type Relation to Patient Date of Phone Billing Address Personal/Family [phone] [address] Advance Directives * FULL RESUSCITATION (Latest Code Status on File) Date Activated Date Inactivated Comments 02/04/2013 1:53 PM 02/05/2013 12:52 PM Care Teams Crystallizer Operator Relationship Specialty Start Date End Date Fareed Nuñez MD [address] [address] PCP - General Family Medicine 07/22/19 [place] [address] [facility] [phone] Government Affairs Fellow/Oncologist Hematology and Oncology 07/31/23
--- OUTSIDE RECORDS SUMMARY | 2025-08-26 20:36 | XMS_ITS | Encounter Summary ---
Author Organization [facility] Health Address [facility] [facility] [place] [address] Care Team Providers Care Engineering Technical Writer Name Role Phone Darryl Hanson MD Primary Care Provider Diogenes Stuart MD Unavailable Fabienne Miller MD Primary Care Provider Pravin Crowe DO Unavailable [phone] Thong Demarco MD Unavailable Fareed Nuñez MD Primary Care Provider Fareed Nuñez MD Unavailable Fareed Nuñez MD Unavailable Fareed Nuñez MD Unavailable [phone] Zafar Washington MD Unavailable [phone] Fabienne Miller MD Unavailable Encounter Details Date Type Department Care Team (Late st Contact Info) Description 12/19/2012 [facility] Outpatient Visit EXTERNAL [place] [address] 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 [address] PCP - General 11/21/10 04/10/15 [place] [address] [place] [address] [address] [place] [address] PCP - General Family Medicine 05/10/15 12/18/16 Fareed Nuñez MD [address] [place] [address] [address] [place] [address] PCP - General Family Medicine 07/22/19 Fareed Nuñez [place] [address] [place] [address] [address] [place] [address] PCP - Attributed-[employer] 02/03/20 1 Fareed Nuñez MD [address] [facility] [address] [place] [address] PCP - Attributed-[employer] 03/04/21 10/19/21 Fareed Nuñez MD [address] [facility] [address] [place] [address] PCP - Attributed-[employer] 05/04/22 05/21/23 Fabienne Miller MD [address] [facility] [address] [place] [address] PCP - Attributed-[employer] 03/21/19 03/21/19 Diogenes Stuart MD [facility] [place] [address] Neurological Surgery 03/10/13 07/30/22 Pravin Crowe DO [address] [place] [address] Orthopedic Surgery 05/10/15 07/30/22 Thong Demarco MD [address] [place] [address] Otolaryngology 05/10/15 07/30/22 [place] [address] [place] [id number] Delimber Operator/Oncologis t Hematology and Oncology 07/31/23 documented as of this encounter
--- OUTSIDE RECORDS SUMMARY | 2025-08-26 20:36 | XMS_ITS | Clinical Summary ---
Author Organization [facility] Address [address] [place] [address] Care Team Providers Care Calf Skinner Name Role Phone Fareed Nuñez MD Primary [...] (two) times a day 60 capsule 5 Active Active Problems Problem Noted Date Diagnosed [...] oz pur e alcohol) Social Connection and Isolation Panel Answer Date Recorded In a typical week, how many times do you talk on the phone with family, friends, or neighbors? More than three times a week 03/05/2023 How often do you get togethe r with friends or relatives? More than three times a week 03/05/2023 How often do you attend chur ch or jewish services? Never 03/05/2023 Do you belong to any clubs o r organizations such as tenriism groups, unions, fraternal or athletic groups, or [...] place to sleep or slept in a group home (including now)? No 03/05/2023 Personal Safety Answer Date Recorded Have you ever been in or are you currently in a harmful physical or emotional relationship or is someone making you feel afraid or unsafe? 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 Gender Identity Male 02/01/2021 8:24 AM CDT [...] 1994 Depression Screening 08/18/2019 08/18/2018, 07/25/2018, 07/30/2017 Zoster Vaccine (1 of 2) 2025 Covid-19 Vaccine (3 - 2024-2 6 season) 2025 03/01/2021, 02/08/2021 Influenza Vaccine (#1) 2025 , 07/25/2018, 07/30/2017, Additional history exists DTaP/Tdap/Td Vaccine (3 - Td or Tdap) 02/23/2033 02/23/2023, 06/04/2017 Insurance [employer] OOS IDPA IDPA Advance Directives For more information, please contact: [phone] * Full Code (Latest Code Status on File) Date Activated Date Inactivated Comments 03/04/2023 12:03 AM 03/07/2023 6:49 PM Care Teams Calf Skinner Relationship Specialty Start Date End Date Fareed Nuñez MD [address] [facility] [address] [place] [address] PCP - General Family Medicine 03/18/23
--- OUTSIDE RECORDS SUMMARY | 2025-08-26 20:36 | XMS_ITS | Encounter Summary ---
Author Organization [facility] Address [facility] [facility] 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 Gender Identity Male 05/22/2018 10:53 AM CDT Sexual Orientation Straight 08/30/2021 12 :31 PM CDT 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 Not on file Not on file documented as of this encounter Plan of Treatment Not on file documented as of this encounter Visit Diagnoses Not on filedocumented in this encounter Care Teams Gaming Worker Relationship Specialty Start Date End Date Darryl Hanson MD [address] [place] [address] PCP - General 11/21/10 04/10/15 [place] [address] [place] [address] [address] [place] [address] PCP - General Family Medicine 05/10/15 12/18/16 Fareed Nuñez MD [address] [place] [address] PCP - General Family Medicine 07/22/19 Fareed Nuñez [place] [address] [place] [address] PCP - Attributed-[employer] 02/03/20 1 Fareed uNñez MD [address] [place] [address] PCP - Attributed-[place] [employer] 03/04/21 10/19/21 Fareed Nuñez [place] [address] [place] [address] PCP - Attributed-[place] [employer] 05/04/22 05/21/23 Fabienne Miller MD [address] [facility] [address] [place] [address] PCP - Attributed-[facility] Commercial 03/21/19 03/21/19 Diogenes Stuart MD [address] [facility] [place] [address] Neurological Surgery 03/10/13 07/30/22 Pravin Crowe DO [address] [place] [address] Orthopedic Surgery 05/10/15 07/30/22 Thong Demarco MD [address] [place] [address] Otolaryngology 05/10/15 07/30/22 [place] [address] [place] [address] Credit Verifier/Oncologis t Hematology and Oncology 07/31/23 documented as of this encounter
--- NOTE | 2025-08-26 20:39 | ECG_ITS ---
Test Date: 2025-08-26 20:50:44 Measurements Intervals Independence Rate: 83 P: 43 IN: 176 QRS: -9 QRSD: 106 T: 46 QT: 386 QTc: 455 Interpretive Statements SINUS RHYTHM INCOMPLETE RIGHT BUNDLE BRANCH BLOCK DELAYED PRECORDIAL R/S TRANSITION BORDERLINE T WAVE ABNORMALITY- ANTERIOR LEADS BASELINE WANDER- I, II, AVR, AVL, AVF, V1-V3 BORDERLINE ECG Compared to ECG 06/05/2025 13:23:49 NO SIGNIFICANT CHANGE Electronically Signed On 08-26-2025 21:02:21 CDT by Rodriguez Shipley D.O.
[2025-08-26 20:40] VITALS: BP 122/73; PULSE 84; RESP 20; TEMP 36.8; O2SAT 98
--- NOTE | 2025-08-26 20:46 | PC.NURSE ---
LAB AT THE BEDSIDE. ARASH CASTRO, COMPLETING EKG
[2025-08-26] MEDS: MAG HYDROX/ALUMINUM HYD/SIMETH 30 ML, PHENobarb/HYOSCY/ATROPINE/SCOP 32.4 MG, LIDOCAINE... PO (20:51)
[2025-08-26 20:53] LABS: Hematocrit 38.3 % (40.0-54.0); Hemoglobin 12.8 g/dL (14.0-18.0); Immature Granulocyte Percent A 0.4 % (0.0-0.0); Lymphocytes Absolute Auto 1.68 K/mm3 (1.10-4.50); Mean Corpuscular HGB Conc 33.4 g/dL (32-36); Mean Corpuscular Hemoglobin 26.0 pg (27.0-31.0); Mean Corpuscular Volume 77.7 fL (78.0-102.0); Nucleated Red Blood Cells Absolute Auto 0.00 K/mm3 (0.00-0.00); Nucleated Red Blood Cells Perc 0.0 % (0-0.0); Platelet Count Result 271 K/mm3 (150-420); Red Blood Count 4.93 M/mm3 (4.70-6.10); White Blood Count 9.4 K/mm3 (4.8-10.8)
[2025-08-26 20:57] VITALS: BP 108/89; PULSE 69; RESP 11; O2SAT 97
[2025-08-26 21:04] LABS: Alanine Aminotransferase 25 U/L (6-50); Albumin Level 5.1 g/dL (3.5-5.1); Alkaline Phosphatase 126 U/L (38-126); Anion Gap 15 mmol/L (4-12); Aspartate Amino Transferase 35 U/L (17-59); Bilirubin,Total 0.8 mg/dL (0.2-1.3); Blood Urea Nitrogen 16 mg/dL (9-20); Calcium 11.0 mg/dL (8.4-10.2); Carbon Dioxide 23 mmol/L (22-30); Chloride 104 mmol/L (98-107); Estimated CRCL calculation 71 ml/min; Estimated Glomerular Filt Rate > 60; Glucose 117 mg/dL (65-110); Osmolality Calculated 296 mOsm/kg (285-295); Potassium 4.1 mmol/L (3.4-5.0); Sodium 142 mmol/L (137-145)
--- OUTSIDE RECORDS SUMMARY | 2025-08-26 21:12 | XMS_ITS | Encounter Summary ---
Author Organization [facility] Health Address [facility] [place] [address] Care Team Providers Care Over Hauler Helper Name Role Phone Darryl Hanson MD Primary Care Provider [phone] Diogenes Stuart MD Unavailable [phone] Fabienne Miller MD Primary Care Provider Pravin Crowe DO Unavailable [phone] Thong Demarco MD Unavailable [phone] Fareed Nuñez MD Primary Care Provider [phone] Fareed Nuñez MD Unavailable [phone] Fareed Nuñez MD Unavailable Fareed Nuñez MD Unavailable Zafar Washington MD Unavailable [phone] Fabienne Miller MD Unavailable Encounter Details Date Type Department Care Team (Late st Contact Info) Description 12/19/2012 [facility] Outpatient Visit EXTERNAL [place] [address] [facility] [address] [place] [address] Social History Tobacco Use Types Packs/Day Years Used Date Smoking Tobacco: Every Day Cigarettes 1 15 Alcohol Use Standard Drinks/Week Comments Yes 0 (1 standard drink = 0.6 oz pur e alcohol) 12 Beers per week for 13 years Sex and Gender Information Value Date Recorded Sex Assigned at Male 08/30/2021 12:31 PM CDT 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 [address] PCP - General 11/21/10 04/10/15 [place] [address] [place] [address] [address] [place] [address] PCP - General Family Medicine 05/10/15 12/18/16 Fareed Nuñez MD [address] [place] [address] [address] [place] [address] PCP - General Family Medicine 07/22/19 Fareed Nuñez [place] [address] [place] [address] [address] [place] [address] PCP - Attributed-[employer] 02/03/20 1 Fareed Nuñez MD [address] [facility] [address] [place] [address] PCP - Attributed-[place] [employer] 03/04/21 10/19/21 Fareed Nuñez MD [address] [facility] [address] [place] [address] PCP - Attributed-[employer] [employer] 05/04/22 05/21/23 Fabienne Miller MD [address] [facility] [address] [place] [address] PCP - Attributed-[employer] Commercial 03/21/19 03/21/19 Diogenes Stuart MD [facility] [facility] [place] [address] Neurological Surgery 03/10/13 07/30/22 Pravin Crowe DO [address] [place] [address] Orthopedic Surgery 05/10/15 07/30/22 Thong Demarco MD [address] [place] [address] Otolaryngology 05/10/15 07/30/22 [place] [address] [place] [address] Business Programmer/Oncologis t Hematology and Oncology 07/31/23 documented as of this encounter
--- OUTSIDE RECORDS SUMMARY | 2025-08-26 21:13 | XMS_ITS | Encounter Summary ---
Author Organization [facility] Address [facility] [facility] [place] [address] Care Team Providers Care Automation Sales Manager Name Role Phone Darryl Hanson MD Primary Care Provider [phone] Diogenes Stuart MD Unavailable [phone] Fabienne Miller MD Primary Care Provider [phone] Pravin Crowe DO Unavailable [phone] Thong Demarco MD Unavailable [phone] Fareed Nuñez MD Primary Care Provider Fareed Nuñez MD Unavailable Fareed Nuñez MD Unavailable [phone] Fareed Nuñez MD Unavailable Zafar Washington MD Unavailable [phone] Fabienne Miller MD Unavailable Encounter Details [...] PM CDT 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 Gender Identity Male 05/22/2018 10:53 AM CDT Sexual Orientation Straight 08/30/2021 12 :31 PM CDT 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 Not on file Not on file documented as of this encounter Plan of Treatment Not on file documented as of this encounter Visit Diagnoses Not on filedocumented in this encounter Care Teams Automation Sales Manager Relationship Specialty Start Date End Date Darryl Hanson MD [address] [place] [address] PCP - General 11/21/10 04/10/15 [place] [address] [place] [address] [address] [place] [address] PCP - General Family Medicine 05/10/15 12/18/16 Fareed Nuñez MD [address] [place] [address] PCP - General Family Medicine 07/22/19 Fareed uNñez [place] [address] [place] [address] PCP - Attributed-[employer] 02/03/20 1 Fareed Nuñ[place] [address] [place] [address] PCP - Attributed-[place] [employer] 03/04/21 10/19/21 Fareed Nuñez [place] [address] [place] [address] PCP - Attributed-[place] [employer] 05/04/22 05/21/23 Fabienne Miller MD [address] [facility] [address] [place] [address] PCP - Attributed-[facility] Commercial 03/21/19 03/21/19 Diogenes Stuart MD [address] [place] [address] Neurological Surgery 03/10/13 07/30/22 Pravin Crowe DO [address] [place] [address] Orthopedic Surgery 05/10/15 07/30/22 Thong Demarco MD [address] [place] [address] Otolaryngology 05/10/15 07/30/22 [place] [address] [place] [address] Line Tester/Oncologis t Hematology and Oncology 07/31/23 documented as of this encounter
--- OUTSIDE RECORDS SUMMARY | 2025-08-26 21:13 | XMS_ITS | Clinical Summary ---
Author Organization [facility] [employer] Address [address] [facility] [address] [place] [address] Care Team Providers Care Immersion Metalcleaner Name Role Phone Fareed Nuñez MD Primary Care Provider [phone] Zafar Washington MD Unavailable [phone] Source Comments [facility] [employer],non-owned Affiliates and Associated Physician Practices is amultiple site organization consisting of ambulatory clinics and hospital sitesin [place], [place], [place]. This disclosure is being madepursuant to the Care Everywhere program and may not contain all information available regarding this patient. 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 Not on file Not [...] this topic Medical Devices Implanted Type Area Fruit Bar Maker Device Identifier Shelf Expiration Date Model / Serial / Lot Putty Dbm Progenix 5cc Implanted:Qty: 1 on 02/04/2013 by Diogenes Stuart MD at [facility] Spine Lumbar Spinal [employer] 07/09/2014 [id number] / / [id number] Jam Lordotic Implant 15 Mm D X 20mm L Implanted:Qty: 1 on 02/04/2013 by Diogenes Stuart MD at [facility] Spine Lumbar 01/16/2017 [id number] 00 / / [id number] 37 Mm X 65 Mm Plate Jam Implanted:Qty: 1 on 02/04/2013 by Diogenes Stuart MD at [facility] Spine Lumbar [id number] 03 / / Jam 26 Mm Variable Screws Implanted:Qty: 6 on 02/04/2013 by Diogenes Stuart MD at [facility] Spine Lumbar 07.47626.0 03 / / Jam 24 Mm Variable Screws Implanted:Qty: 2 on 02/04/2013 by Diogenes Stuart MD at [facility] Spine Lumbar 07.03823.0 02 / / Scrw Can Full Thrd 4mm X 24mm Implanted:Qty: 1 on 02/04/2013 at [facility] Synthes Usa 206.024 / / Putty Grft Bone Dbm Progenix 10cc Implanted:Qty: 1 on 02/04/2013 by Diogenes Stuart MD at [facility] Spine Lumbar Medtronic Sofamor [employer]ane[employer] 07/28/2014 [id number] / / [id number] Putty Grft Bone Dbm Progenix 10cc Implanted:Qty: 1 on 02/04/2013 by Diogenes Stuart MD at [facility] Spine Lumbar Medtronic Sof[employer]or [employer] 10/08/2014 [id number] / / [id number] Jam Spine Interbody Implant 15 Mm D X 20 Mm L Implanted:Qty: 1 on 02/04/2013 by Diogenes Stuart MD at [facility] Spine Lumbar 09/18/2017 07.58056.0 22 / / [id number] Jam Spine Interbody Implant 15 Mm D X 20 Mm L Implanted:Qty: 1 on 02/04/2013 by Diogenes Stuart MD at [facility] Spine Lumbar 01/16/2015 [id number] 00 / / [id number] Jam Interbody Implant 15 Mm D X 20 Mm L Implanted:Qty: 1 on 02/04/2013 by Diogenes Stuart MD at [facility] Spine Lumbar 09/18/2017 07.46556.0 22 / / [id number] Jam Spine Interbody Implant 15 Mm S X 20 Mm L Implanted:Qty: 1 on 02/04/2013 by Diogenes Stuart MD at [facility] Spine Lumbar 11/18/2015 [id number] 00 / / [id number] Jam Plate 37 Mm X 16 Implanted:Qty: 2 on 02/04/2013 by Diogenes Stuart MD at [facility] Spine Lumbar 07.18927.0 03 / / Lordotic Interbody Implant 15 Mm D X 20 Mml Implanted:Qty: 1 on 02/04/2013 by Diogenes Stuart MD at [facility] Spine Lumbar 01/16/2017 [id number] 00 / / [id number] Procedures Procedure Name Priority Date/Time Associated Diagnosis [...] stool LIPID PROFILE Routine 10/31/2020 2:55 PM SUPERVISOR TANK HOUSE Benign essential hypertension Screening, lipid from Last [...] a test for HCV RNA (test code 90211) is suggested. For additional information please refer to http://education.Moondo.Mentor Me/faq/VEZ96k9 (This link is being provided for informational/ educational purposes only.) Test Performed at: [facility] [employer] [address] [facility] [address] JENNIFER HOOVER MD Blood BLOOD SPECIMEN / Unknown 02/11/2025 11:13 AM CDT 02/11/2025 11:14 AM CDT Fareed Nuñez MD LAB - CHEMISTRY ORDERABLES F inal Result Performing Organization Address [facility] Co de Phone Number [facility] [address] [place] [address] * HIV-1 HIV-2 ANTIBODY + HIV P24 AG PANEL (02/11/2025 11:05 AM CDT) [facility] HIV Screen 4th Generation w Reflex NON-REACT SHELLIE NON-REACT SHELLIE [facility] Comment: HIV-1 antigen and HIV-1/HIV-2 antibodies were [...] purpose. For additional information please refer to http://education.Moondo.Mentor Me/faq/ZJA562 (This link is being provided for informational/ educational purposes only.) The performance of this assay has not been clinically validated in patients less than 2 years old. Test Performed at: [facility] [employer] [address] [employer] [address] JENNIFER HOOVER MD Blood BLOOD SPECIMEN / Unknown 02/11/2025 11:05 AM CDT 02/11/2025 11:05 AM CDT Fareed Nuñez MD LAB - CHEMISTRY ORDERABLES F inal Result Performing Organization Address [facility] Co de Phone Number [facility] [address] [place] [address] * HEMOGLOBIN A1C (HgbA1C) (02/11/2025 11:05 AM [...] diagnosis of diabetes in children. According to [place] Diabetes Association (ADA) guidelines, hemoglobin A1c <7.0% represents optimal control in non- diabetic patients. Different metrics may apply to specific patient populations. Standards of Medical Care in Diabetes(ADA). Test Performed at: [facility] [address] [address] JENNIFER HOOVER MD Blood BLOOD SPECIMEN / Unknown 02/11/2025 11:05 AM CDT 02/11/2025 11:05 AM CDT us Fareed Nuñez MD LAB - CHEMISTRY ORDERABLES F inal Result [address] [address] * ENDOSCOPY, COLON, DIAGNOSTIC (06/04/2023 8:11 AM CDT) Report Endoscopy POC _ Patient Name: Jennifer Rodriguez Procedure Date: 06/04/2023 8:11 AM Date of : 1975 Admit Type: Outpatient Age: 48 Gender: Male Attending MD: Fariha Aceves MD, [id number] _ Procedure: Colonoscopy Indications: Screening for colorectal malignant neoplasm, Incidental - Change in bowel habits, Incidental - Weight loss Providers: Fariha Aceves MD (Doctor) Referring MD: Fareed Nñuez MD (Referring MD) Medicines: Monitored Anesthesia Care [...] bowel preparation was evaluated using the BBPS ([place] Bowel Preparation Scale) with scores of: Right [...] pathology results. Procedure Code(s): --- Professional --- 13302, Colonoscopy, flexible; with biopsy, single or multiple --- Technical --- 25314, Colonoscopy, flexible; with biopsy, single or multiple Diagnosis Code(s): --- Professional --- Z12.11, Encounter for screening for malignant neoplasm of colon K64.8, Other hemorrhoids D12.8, Benign neoplasm of rectum --- Technical --- Z12.11, Encounter for screening for malignant neoplasm of colon K64.8, Other hemorrhoids D12.8, Benign neoplasm of rectum CPT copyright 2020 [place] [employer] Association. All rights reserved. The codes documented in this report are preliminary and upon tester semiconductor packages review may be revised to meet current compliance requirements. __ Fariha Aceves MD 06/04/2023 9:38:20 AM Number of Addenda: 0 Note Initiated On: 06/04/2023 8:11 AM [facility] ENDOSCOPY 06/04/2023 8:11 AM CDT us [employer]iki [employer] SYSTEMS PLANNER-EXPORT PACKER GI PROCEDURE ORDERABLES Edited Result - Final [place] [address] * (ABNORMAL) LIPID PROFILE (10/31/2020 2:55 PM SUPERVISOR TANK HOUSE) Cholesterol 281(H) <200 mg/dL [facility] ACCOUNT BILL Triglycerides 107 <150 mg/dL [facility] ACCOUNT BILL HDL Cholesterol 121 >40 mg/dL [facility] ACCOUNT BILL VLDL Calculated 21 <=30 mg/dL [facility] ACCOUNT BILL LDL Calculated 139(H) <130 mg/dL [facility] ACCOUNT BILL Comment:FASTING Blood BLOOD SPECIMEN / Unknown 10/31/2020 2:55 PM SUPERVISOR TANK HOUSE 10/31/2020 Narrative Resulting Agency Comment Lab Testing performed at: [address] [id number] us Fareed Nuñez MD LAB - CHEMISTRY ORDERABLES F inal Result [facility] ACCOUNT BILL [address] [place] [address] from Last 3 Months or Most Recently Relevant to Health Maintenance Insurance COMMERCIAL GENERIC * Guarantor: JENNIFER RODRIGUEZ Account Type Relation to Patient Date of Phone Billing Address Personal/Family [address] [address] * Guarantor: JENNIFER RODRIGUEZ Account Type Relation to Patient Date of Phone Billing Address Personal/Family [id number] [address] Advance Directives * FULL RESUSCITATION (Latest Code Status on File) Date Activated Date Inactivated Comments 02/04/2013 1:53 PM 02/05/2013 12:52 PM Care Teams Immersion Metalcleaner Relationship Specialty Start Date End Date Fareed Nuñez MD [address] [address] PCP - General Family Medicine 07/22/19 [place] [address] [facility] [phone] Biochemistry Technician/Oncologist Hematology and Oncology 07/31/23
--- OUTSIDE RECORDS SUMMARY | 2025-08-26 21:13 | XMS_ITS | Clinical Summary ---
Author Organization [facility] Address [address] [place] [address] Care Team Providers Care Vocational Rehabilitation Teacher Name Role Phone Fareed Nuñez MD Primary [...] often do you attend chur ch or islam services? Never 03/05/2023 Do you belong to any clubs o r organizations such as synagogue groups, unions, fraternal or athletic groups, or [...] place to sleep or slept in a [place] facility (including now)? No 03/05/2023 Personal Safety Answer Date Recorded Have you ever been in or are you currently in a harmful physical or emotional relationship or is someone making you feel afraid or unsafe? Denies 02/08/2025 Sex and Gender Information Value Date Recorded Sex Assigned at Not on file Legal Sex Male 12:57 PM DIETARY SUPERVISOR Gender Identity Male 02/01/2021 8:24 AM CDT [...] Td or Tdap) 02/23/2033 02/23/2023, 06/04/2017 Insurance [employer] [facility] Address: [address] [place] [address] IDPA IDPA Advance Directives For more information, please contact: [phone] * Full Code (Latest Code Status on File) Date Activated Date Inactivated Comments 03/04/2023 12:03 AM 03/07/2023 6:49 PM Care Teams Vocational Rehabilitation Teacher Relationship Specialty Start Date End Date Fareed Nuñez MD [address] [facility] [address] [place] [address] PCP - General Family Medicine 03/18/23
[2025-08-26 21:15] VITALS: BP 112/83; PULSE 87; RESP 11; O2SAT 96
[2025-08-26 21:16] LABS: Total Protein > 11.0 g/dL (6.3-8.2); Troponin I < 0.012 ng/mL (0.000-0.034)
--- NOTE | 2025-08-26 21:16 | PC.NURSE ---
PATIENT TOLD DR SANCHEZ THAT HE FELT LIKE THE GI COCKTAIL HELPED.
--- NOTE | 2025-08-26 21:20 | ED.CHESTPAIN ---
HPI - Chest Pain General Chief Complaint: Chest Pain Stated Complaint: Chest Pain Time Seen by Provider: 08/26/25 20:39 Source: patient and EMS Mode of arrival: EMS Limitations: no limitations History of Present Illness HPI narrative: This is a 50-year-old male history of GERD with some hypertension presents with some chest tightness and has epigastric pain the chest tightness with no radiation no shortness of breath no nausea vomiting no fever chills no abdominal pain no flank pain or dysuria. MD complaint: chest pain Onset (ago): hour(s) Timing of current episode: episodic Prior episodes: No Onset: during rest Pain location: epigastric Pain radiation: none Severity: mild Pain scale (0-10): 4 Exacerbating factors: nothing Related Data Home Medications ?Medication ?Instructions ?Recorded ?Confirmed ?Last Taken ?Type albuterol 90 mcg/actuation aerosol 90 mcg inhalation TID PRN 06/12/22 07/06/25 03/30/25 History inhaler Shortness Of Breath lisinopril 20 mg tablet 20 mg PO DAILY 07/23/24 07/06/25 03/23/25 History folic acid 1 mg tablet 1 mg PO DAILY 03/30/25 07/06/25 03/29/25 History levothyroxine 50 mcg tablet 50 mcg PO DAILY 03/30/25 07/06/25 03/29/25 History pregabalin 75 mg capsule (Lyrica) 200 mg PO TID 06/05/25 07/06/25 Unknown History amitriptyline 25 mg tablet 25 mg PO QHS 07/06/25 07/06/25 Unknown History tizanidine 2 mg capsule 2 mg PO TID PRN 07/06/25 07/06/25 Unknown History Allergies Allergy/AdvReac Type Severity Reaction Status Date / Time tramadol AdvReac Intermediate Agitated Verified 08/26/25 20:46 vancomycin AdvReac Unknown tingling Verified 08/26/25 20:46 Review of Systems Review of Systems: All systems reviewed & are unremarkable except as noted in HPI and below PMFSH Past Medical History Medical History Peripheral neuropathy Chronic alcoholic liver disease Rectal bleeding Secondary to rectal ulcer Peripheral neuropathy Alcohol withdrawal syndrome Neuropathy Chronic hyponatremia Hepatic steatosis Noted on CT scan 06/2022 Tobacco abuse Hypertension Asthma Anxiety Surgical History Surgical History H/O knee surgery H/O spinal fusion Family History Family History Other Family history non-contributory Social History Social History Social History: The patient lives with his significant other. He has 2 daughters. He has smoked 1 pack per day since he was a teenager. He has a history of heavy alcohol use drinking up to 1 5th of vodka every other day with recent decrease in alcohol consumption down to 2-3 beers a day on weekdays and 10 beers a day on weekends. 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 The patient smokes marijuana nightly. Code status: Full code Smoking packs per day: 0.75 Smoking cigarettes per day: 15.0 Years smoked: 35 Smoking pack-years: 26.25 Smoking status: Current every day smoker Tobacco type: cigarettes Alcohol intake: never Drinks per week: 20 Alcohol use details: social Substance use: never Substance use type: marijuana Last use: 03/29/2025 Do You Feel Safe in your Home?: Yes Lack of Transportation: No Lack of Food: Never True Current Housing: I Have Housing Concerned About Future Housing: No Difficulty Paying Gas/Electric Bills: No Difficulty Paying for Meds: No Currently Unemployed: No Education: Trade/Vocational Certificate Difficulty w/ Childcare or Family Care: No Living arrangements: with family Gender identity (if verbalized by the patient): Male Spiritual care concerns: No Exam Const: General: healthy appearing and no acute distress Nutritional Appearance: well nourished Orientation/consciousness: patient oriented x3 Limitations: no limitations HENMT: Head: normal to inspection Chest: Chest palpation & inspection: normal inspection of the chest Resp: Effort & Inspection: normal respiratory effort Auscultation: clear to auscultation bilaterally Cardio: Rate: regular rate Rhythm: regular rhythm GI: GI Palp: Yes Soft to palpation Other: Epigastric tenderness with palpation : General: Yes bladder normal to palpation Skin: General skin exam: normal color Rashes: no rashes Wounds: no wounds Neuro: General: patient oriented x3, moves all extremities, no meningeal signs and no focal motor deficits Extrem: General: normal to inspection, no clubbing, cyanosis or edema and no pedal edema Psych: Affect: Anxious affect present Course Course Emergency Course: Medical decision making narrative: The patient was evaluated by myself in the emergency department. History was obtained from the patient was an independent historian physical exam performed and witnessed by nurse. External medical records were reviewed at this time. Patient had a chest x-ray performed which shows no acute cardiopulmonary abnormalities, EKG with some sinus rhythm with incomplete right bundle branch block. Troponins were negative rest of his blood work reviewed with patient unremarkable. Repeat assessment: Patient doing well on repeat exam after received a GI cocktail, with no acute distress. Symptoms improved since arrival to the emergency department Repeat vitals are stable Patient agrees with discussion and after shared medical decision making and agrees with discharge. All questions answered to the patient's satisfaction Advised follow-up with primary within 3 to 5 days. Vital Signs Vital signs: Vital Signs Temperature 36.8 C 08/26/25 20:40 Pulse Rate 84 08/26/25 20:40 Respiratory Rate 20 08/26/25 20:40 Blood Pressure 122/73 08/26/25 20:40 Pulse Oximetry 98 08/26/25 20:40 Oxygen Delivery Room Air 08/26/25 20:40 Temperature 36.8 C 08/26/25 20:40 Pulse Rate 69 08/26/25 20:57 Respiratory Rate 11 L 08/26/25 20:57 Blood Pressure 108/89 08/26/25 20:57 Pulse Oximetry 97 08/26/25 20:57 Oxygen Delivery Room Air 08/26/25 20:40 MDM - Chest Pain Lab Data 08/26/25 20:50 08/26/25 20:50 Labs: Lab Results 08/26/25 Range/Units 20:50 WBC 9.4 (4.8-10.8) K/mm3 RBC 4.93 (4.70-6.10) M/mm3 Hgb 12.8 L (14.0-18.0) g/dL Hct 38.3 L (40.0-54.0) % MCV 77.7 L (78.0-102.0) fL MCH 26.0 L (27.0-31.0) pg MCHC 33.4 (32-36) g/dL RDW 15.1 H (11.6-14.4) % Plt Count 271 (150-420) K/mm3 MPV 10.9 (8.7-11.0) fl Immature Gran % (Auto) 0.4 H (0.0-0.0) % Neut % (Auto) 74.2 H (50.0-70.0) % Lymph % (Auto) 17.9 L (18.0-42.0) % Cascade % (Auto) 7.2 (2.0-11.0) % Eos % (Auto) 0.1 L (1.0-6.0) % Baso % (Auto) 0.2 (0.0-1.0) % Lymph # (Auto) 1.68 (1.10-4.50) K/mm3 Cascade # (Auto) 0.68 (0.10-0.90) K/mm3 Eos # (Auto) 0.01 L (0.02-0.50) K/mm3 Baso # (Auto) 0.02 (0.00-0.10) K/mm3 Abs Immat Gran (auto) 0.04 H (0.00-0.00) K/mm3 Absolute Neuts (auto) 6.97 (1.70-7.20) K/mm3 Absolute Nucleated RBC 0.00 (0.00-0.00) K/mm3 Nucleated RBC % 0.0 (0-0.0) % Sodium 142 (137-145) mmol/L Potassium 4.1 (3.4-5.0) mmol/L Chloride 104 (98-107) mmol/L Carbon Dioxide 23 (22-30) mmol/L Anion Gap 15 H (4-12) mmol/L BUN 16 (9-20) mg/dL Creatinine 1.11 (0.7-1.3) mg/dL Estim Creat Clear Calc 71 ml/min Estimated GFR > 60 (59 - ) Glucose 117 H (65-110) mg/dL Calculated Osmolality 296 H (285-295) mOsm/kg Calcium 11.0 H (8.4-10.2) mg/dL Total Bilirubin 0.8 (0.2-1.3) mg/dL AST 35 (17-59) U/L ALT 25 (6-50) U/L Alkaline Phosphatase 126 (38-126) U/L Troponin I < 0.012 (0.000-0.034) ng/mL Total Protein > 11.0 H (6.3-8.2) g/dL Albumin 5.1 (3.5-5.1) g/dL Critical Care Time Critical Care Time Critical Care Time: No Discharge Plan Discharge Clinical Impression: Acid reflux disease Patient Disposition: IA Group Home/Asst Living Condition: Stable Instructions: Antibiotic Form, GERD (Gastroesophageal Reflux Disease) (ED) Additional Instructions: Advised patient to take his omeprazole 20mg twice daily to follow with primary within The next 2 to 5 days for further evaluation and treatment. Patient Language: Samoan Prescriptions: New omeprazole 20 mg capsule,delayed release(DR/EC) 20 mg PO BID Qty: 30 0RF No Action lisinopril 20 mg tablet 20 mg PO DAILY Patient Comments: Patient reports he has not been taking it as he should amitriptyline 25 mg tablet 25 mg PO QHS tizanidine 2 mg capsule 2 mg PO TID PRN albuterol 90 mcg/actuation Aerosol 90 mcg INHALATION TID PRN (Reason: Shortness Of Breath) omeprazole 20 mg tablet,delayed release (DR/EC) 20 mg PO DAILY Qty: 60 0RF folic acid 1 mg tablet 1 mg PO DAILY levothyroxine 50 mcg tablet 50 mcg PO DAILY thiamine HCl (vitamin B1) [Vitamin B-1] 100 mg Tablet 100 mg PO QAM 30 Days Qty: 30 1RF citalopram [Celexa] 20 mg Tablet 10 mg PO QAM 30 Days Qty: 15 1RF bisacodyl [Laxative (bisacodyl)] 5 mg Tablet,Delayed Release (Dr/Ec) 5 mg PO QAM 30 Days Qty: 30 0RF Artificial Tears(fj-[id number]-iolb) 1-0.2-0.2 % Drops 1 drp EACH EYE QID PRN (Reason: Dry Eye(S)) 30 Days Qty: 15 0RF duloxetine [Cymbalta] 30 mg Capsule,Delayed Release(Dr/Ec) 30 mg PO Q12HR 30 Days Qty: 60 1RF multivitamin Tablet 1 tablet PO DAILY Qty: 30 1RF pregabalin [Lyrica] 75 mg Capsule 200 mg PO TID hydrocodone-acetaminophen 5-325 mg tablet 1 tablet PO Q8H PRN (Reason: pain) Qty: 7 0RF polyethylene glycol 3350 [Miralax] 17 gram Powder In Packet 17 g PO QAM PRN (Reason: Constipation) Qty: 30 0RF polysaccharide iron complex 150 mg iron Capsule 150 mg PO DAILY@0800 Qty: 30 0RF lorazepam 0.5 mg Tablet 0.5 mg PO BID PRN (Reason: Anxiety) Qty: 10 0RF lidocaine [Lidoderm] 5 % Adhesive Patch,Medicated 1 patch transdermal HS Qty: 15 0RF simethicone [Infants Gas Relief] 40 mg/0.6 mL Drops,Suspension 1.8 ml PO ONCE PRN (Reason: Gas Discomfort) Qty: 5 0RF vitamin B complex [Vitamins B Complex] Capsule 1 cap PO QAM Qty: 90 0RF Follow-up/Referrals: Stephanie,Zuly Galvan [Primary Care Provider] Time of Disposition: 21:28
[2025-08-26 21:30] VITALS: BP 109/88; PULSE 88; RESP 16; O2SAT 97
[2025-08-26] MEDS: PANTOPRAZOLE 40 MG TABLET PO (21:44)
== END 2025-08-26 21:48 ==
PROVIDERS: Emergency Provider Emergency Medicine; PCP Internal Medicine
DX: K21.9 Gastro-esophageal reflux disease without esophagitis (principal); I10 Essential (primary) hypertension; F17.210 Nicotine dependence, cigarettes, uncomplicated
CPT/HCPCS: 36415; 71045; 80053; 84484; 85025; 93005; 99284; A9270

== ENCOUNTER 2025-09-09 10:13 | Outpatient (CLI) | payer OTHER, SELFPAY ==
--- NOTE | 2025-09-09 10:30 | NEURO_ITS ---
Clinical note: The patient is 50 years old with history of paresthesias in both lower limbs. Patient has had a surgery in the lumbar spine through anterior approach in the past. There is also history of surgery on left knee. No history of major trauma or diabetes mellitus. A brief examination of the lower limbs did not show any focal muscle wasting or fasciculations. The results of this study are given below. Summary of findings 1. Left and right peroneal motor distal latencies were within normal limits. Amplitudes are moderately decreased on the right and normal on the left side. Conduction velocity mildly decreased on the right and normal on the left side. There was no significant slowing across the fibular head. 2. Left and right tibial motor distal latencies and conduction velocity within normal limits however amplitudes a moderate decreased on left and normal on the right side. 3. Left and right sural and right medial plantar sensory were absent. 4. Right tibial H reflex absent however left tibial H-reflex latency was normal but amplitude was significantly decreased. 4. EMG examination was performed at various muscles examined both lower limbs and related paraspinal muscles. No denervation changes were seen. Mild decreased recruitment was noted in the left medial gastrocnemius. 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 Eighty logic correlation is recommended. Decreased motor amplitudes and right peroneal and left tibial motor studies may reflect residual finding from previous L5-S1 radiculopathy leading to surgery. Clinical and if necessary radiographic correlation may be helpful. Cb Knowles MD, FAAN, FAANEM Neurology / Electrodiagnostic Medicine Rodriguez Nerve Conduction Studies Motor Nerve Results ? Latency Amplitude F-Lat Segment Distance CV Comment Site (ms) (mV) (ms) (cm) (m/s) Left Peroneal (EDB) Motor Ankle 5.9 2.4 Bel Fib Head 13.3 2.4 Bel Fib Head-Ankle 350 47 Pop Fossa 15.4 2.4 Pop Fossa-Bel Fib Head 80 38 Right Peroneal (EDB) Motor Ankle 5.4 1.33 Bel Fib Head 13.2 0.97 Bel Fib Head-Ankle 300 38 Pop Fossa 14.9 0.97 Pop Fossa-Bel Fib Head 85 50 Left Tibial (AHB) Motor Ankle 4.4 3.8 Knee 15.4 3.3 Knee-Ankle 435 40 Right Tibial (AHB) Motor Ankle 4.4 7.7 Knee 15.5 5.5 Knee-Ankle 430 39 Sensory Nerve Results ? Latency (Peak) Amplitude (P-P) Segment Distance CV Comment Site (ms) (?V) (cm) (m/s) Right Medial Plantar (Ortho) Sensory Great Toe-Med Mall NR NR Great Toe-Med Mall 110 NR Left Sural Sensory Calf-Lat Mall NR NR Calf-Lat Mall 120 NR Right Sural Sensory Calf-Lat Mall NR NR Calf-Lat Mall 120 NR H-Reflex Results ? M-Lat H Lat H Peak-Peak Amp M Peak-Peak Amp H-M Lat Site (ms) (ms) mV mV (ms) Left Tibial H-Reflex Pop Fossa 7.2 33.7 0.28 3.1 26.5 Right Tibial H-Reflex Pop Fossa - NR - - NR Electromyography ?Side Muscle Nerve Ins Act Fibs Psw Amp Dur Recrt Comment Right BicepsFemS Sciatic Nml Nml Nml Nml Nml Nml Right Semimembranosus Sciatic Nml Nml Nml Nml Nml Nml Right AntTibialis Dp Br Fibular Nml Nml Nml Nml Nml Nml Right Gastroc Tibial Nml Nml Nml Nml Nml Nml Right VastusMed Femoral Nml Nml Nml Nml Nml Nml Right RectFemoris Femoral Nml Nml Nml Nml Nml Nml Right GluteusMax InfGluteal Nml Nml Nml Nml Nml Nml Right TensorFascLat SupGluteal Nml Nml Nml Nml Nml Nml Left BicepsFemS Sciatic Nml Nml Nml Nml Nml Nml Left Semimembranosus Sciatic Nml Nml Nml Nml Nml Nml Left AntTibialis Dp Br Fibular Nml Nml Nml Nml Nml Nml Left Gastroc Tibial Nml Nml Nml Incr >12ms +1 Left VastusMed Femoral Nml Nml Nml Nml Nml Nml Left RectFemoris Femoral Nml Nml Nml Nml Nml Nml Left GluteusMax InfGluteal Nml Nml Nml Nml Nml Nml Left TensorFascLat SupGluteal Nml Nml Nml Nml Nml Nml Left L4 Parasp Rami Nml Nml Nml Nml Nml Nml Left L5 Parasp Rami Nml Nml Nml Nml Nml Nml Right L4 Parasp Rami Nml Nml Nml Nml Nml Nml Right L5 Parasp Rami Nml Nml Nml Nml Nml Nml
--- OUTSIDE RECORDS SUMMARY | 2025-09-09 18:30 | XMS_ITS | Clinical Summary ---
Author Organization [facility] Address [address] [place] [address] Care Team Providers Care School Plant Consultant Name Role Phone Fareed Nuñez MD Primary [...] often do you attend chur ch or uatsdin services? Never 03/05/2023 Do you belong to any clubs o r organizations such as alevism groups, unions, fraternal or athletic groups, or [...] place to sleep or slept in a correction (including now)? No 03/05/2023 Personal Safety Answer Date Recorded Have you ever been in or are you currently in a harmful physical or emotional relationship or is someone making you feel afraid or unsafe? 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 Gender Identity Male 02/01/2021 8:24 AM CDT [...] Td or Tdap) 02/23/2033 02/23/2023, 06/04/2017 Insurance [employer] OOS Member Subscriber Plan / Payer (Ef fective 2022-Present) Name:Tyree Rodriguez Member ID:[id number] Relation to Subscriber:Self Name:Tyree Rodriguez Subscriber ID:[id number] Payer ID:[id number] (NAIC) Type:[facility] Address: [address] [place] [id number] IDPA IDPA Advance Directives For more information, please contact: [phone] * Full Code (Latest Code Status on File) Date Activated Date Inactivated Comments 03/04/2023 12:03 AM 03/07/2023 6:49 PM Care Teams School Plant Consultant Relationship Specialty Start Date End Date Fareed Nuñez MD [address] [facility] [address] [place] [address] PCP - General Family Medicine 03/18/23
--- OUTSIDE RECORDS SUMMARY | 2025-09-09 18:30 | XMS_ITS | Encounter Summary ---
Author Organization [facility] Address [facility] [facility] 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 Gender Identity Male 05/22/2018 10:53 AM CDT Sexual Orientation Straight 08/30/2021 12 :31 PM CDT 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 Not on file Not on file Not on file documented as of this encounter Plan of Treatment Not on file documented as of this encounter Visit Diagnoses Not on filedocumented in this encounter Care Teams Building Performance Consultant Relationship Specialty Start Date End Date Darryl Hanson MD [address] [place] [address] PCP - General 11/21/10 04/10/15 [place] [address] [place] [address] [address] [place] [address] PCP - General Family Medicine 05/10/15 12/18/16 Fareed Nuñez MD [address] [place] [id number] PCP - General Family Medicine 07/22/19 Fareed Nuñez [place] [address] [place] [id number] PCP - Attributed-[employer] 02/03/20 1 Fareed Nuñez [place] [address] [place] [id number] PCP - Attributed-[employer] 03/04/21 10/19/21 Fareed Nuñez [place] [address] [place] [address] PCP - Attributed-[employer] 05/04/22 05/21/23 Fabienne Miller MD [address] [facility] [address] [place] [address] PCP - Attributed-[facility] Commercial 03/21/19 03/21/19 Diogenes Stuart MD [address] [facility] [address] Neurological Surgery 03/10/13 07/30/22 Pravin Crowe DO [address] [place] [address] Orthopedic Surgery 05/10/15 07/30/22 Thong Demarco MD [address] [place] [address] Otolaryngology 05/10/15 07/30/22 [place] [address] [place] [address] Bull Ladle Tender/Oncologis t Hematology and Oncology 07/31/23 documented as of this encounter
--- OUTSIDE RECORDS SUMMARY | 2025-09-09 18:30 | XMS_ITS | Clinical Summary ---
Author Organization [facility] [employer] [facility] Address [address] [place] [address] Care Team Providers Care Call Center Receptionist Name Role Phone Fareed Nuñez MD Primary Care Provider Zafar Washington MD Unavailable [phone] Source Comments [facility]non-owned Affiliates and Associated Physician Practices is amultiple site organization consisting of ambulatory clinics and hospital sitesin [place], [place], [place] and [place]. This disclosure is being madepursuant to the Care Everywhere program and may not contain all information available regarding this patient. Last updated 18.[facility] 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 Not on file [...] this topic Medical Devices Implanted Type Area Director Multimedia Device Identifier Shelf Expiration Date Model / Serial / Lot Putty Dbm Progenix 5cc Implanted:Qty: 1 on 02/04/2013 by Diogenes Stuart MD at [facility] [employer] 07/09/2014 [id number] / / [id number] Jam Lordotic Implant 15 Mm D X 20mm L Implanted:Qty: 1 on 02/04/2013 by Diogenes Stuart MD at [facility] 01/16/2017 9324-6199- 00 / / [id number] 37 Mm X 65 Mm Plate Jam Implanted:Qty: 1 on 02/04/2013 by Diogenes Stuart MD at [facility] 07.00511.0 03 / / Jam 26 Mm Variable Screws Implanted:Qty: 6 on 02/04/2013 by Diogenes Stuart MD at [facility] 07.97960.0 03 / / Jam 24 Mm Variable Screws Implanted:Qty: 2 on 02/04/2013 by Diogenes Stuart MD at [facility] 07.34607.0 02 / / Scrw Can Full Thrd 4mm X 24mm Implanted:Qty: 1 on 02/04/2013 at [facility] [employer] 206.024 / / Putty Grft Bone Dbm Progenix 10cc Implanted:Qty: 1 on 02/04/2013 by Diogenes Stuart MD at [facility] [employer] 07/28/2014 [id number] / / [id number] Putty Grft Bone Dbm Progenix 10cc Implanted:Qty: 1 on 02/04/2013 by Diogenes Stuart MD at [facility] [employer] 10/08/2014 [id number] / / [id number] Jam Spine Interbody Implant 15 Mm D X 20 Mm L Implanted:Qty: 1 on 02/04/2013 by Diogenes Stuart MD at [facility] 09/18/2017 07.88109.0 22 / / [id number] Jam Spine Interbody Implant 15 Mm D X 20 Mm L Implanted:Qty: 1 on 02/04/2013 by Diogenes Stuart MD at [facility] 01/16/2015 [id number] 00 / / [id number] Jam Interbody Implant 15 Mm D X 20 Mm L Implanted:Qty: 1 on 02/04/2013 by Diogenes Stuart MD at [facility] 09/18/2017 07.37726.0 22 / / [id number] Jam Spine Interbody Implant 15 Mm S X 20 Mm L Implanted:Qty: 1 on 02/04/2013 by Diogenes Stuart MD at [facility] 11/18/2015 [id number] 00 / / [id number] Jam Plate 37 Mm X 16 Implanted:Qty: 2 on 02/04/2013 by Diogenes Stuart MD at [facility] 07.37366.0 03 / / Lordotic Interbody Implant 15 Mm D X 20 Mml Implanted:Qty: 1 on 02/04/2013 by Diogenes Stuart MD at [facility] 01/16/2017 [id number]- 00 / / [id number] Procedures Procedure Name Priority Date/Time Associated Diagnosis [...] stool LIPID PROFILE Routine 10/31/2020 2:55 PM CLIENT DELIVERY MANAGER Benign essential hypertension Screening, lipid from Last [...] a test for HCV RNA (test code 10213) is suggested. For additional information please refer to http://education.ServerPilot.ViaCLIX/faq/QUF92s4 (This link is being provided for informational/ educational purposes only.) Test Performed at: [facility] [address] [facility] [place] [place] [address] JENNIFER HOOVER MD Blood BLOOD SPECIMEN / Unknown 02/11/2025 11:13 AM CDT 02/11/2025 11:14 AM CDT Fareed Nuñez MD LAB - CHEMISTRY ORDERABLES F inal Result Performing Organization Address [facility] Co de Phone Number [facility] [address] [place] [address] * HIV-1 HIV-2 ANTIBODY + HIV P24 AG PANEL (02/11/2025 11:05 AM CDT) [facility] HIV Screen 4th Generation w Reflex NON-REACT SHELLIE NON-REACT SHELLIE [facility] Comment: HIV-1 antigen and HIV-1/HIV-2 antibodies were [...] purpose. For additional information please refer to http://education.ServerPilot.ViaCLIX/faq/NGZ162 (This link is being provided for informational/ educational purposes only.) The performance of this assay has not been clinically validated in patients less than 2 years old. Test Performed at: [facility] [address] [facility] [address] JENNIFER HOOVER MD Blood BLOOD SPECIMEN / Unknown 02/11/2025 11:05 AM CDT 02/11/2025 11:05 AM CDT Fareed Nuñez MD LAB - CHEMISTRY ORDERABLES F inal Result Performing Organization Address [facility] Co de Phone Number [facility] [address] [place] [address] * HEMOGLOBIN A1C (HgbA1C) (02/11/2025 11:05 AM [...] diagnosis of diabetes in children. According to [place] [employer] Association (ADA) guidelines, hemoglobin A1c <7.0% represents optimal control in non- diabetic patients. Different metrics may apply to specific patient populations. Standards of Medical Care in Diabetes(ADA). Test Performed at: [facility] [address] JENNIFER HOOVER MD Blood BLOOD SPECIMEN / Unknown 02/11/2025 11:05 AM CDT 02/11/2025 11:05 AM CDT us Fareed Nuñez MD LAB - CHEMISTRY ORDERABLES F inal Result [address] [address] * ENDOSCOPY, COLON, DIAGNOSTIC (06/04/2023 8:11 AM CDT) Report Endoscopy POC _ Patient Name: Jennifer Rodriguez Procedure Date: 06/04/2023 8:11 AM Date of : 1975 Admit Type: Outpatient Age: 48 Gender: Male Attending MD: Fariha Aceves MD, [id number] _ Procedure: Colonoscopy Indications: Screening for colorectal [...] bowel preparation was evaluated using the BBPS ([place] Bowel Preparation Scale) with scores of: Right [...] pathology results. Procedure Code(s): --- Professional --- 10037, Colonoscopy, flexible; with biopsy, single or multiple --- Technical --- 68454, Colonoscopy, flexible; with biopsy, single or multiple Diagnosis Code(s): --- Professional --- Z12.11, Encounter for screening for malignant neoplasm of colon K64.8, Other hemorrhoids D12.8, Benign neoplasm of rectum --- Technical --- Z12.11, Encounter for screening for malignant neoplasm of colon K64.8, Other hemorrhoids D12.8, Benign neoplasm of rectum CPT copyright 2020 [employer]. All rights reserved. The codes documented in this report are preliminary and upon middle school combination teacher review may be revised to meet current compliance requirements. __ Fariha Aceves MD 06/04/2023 9:38:20 AM Number of Addenda: 0 Note Initiated On: 06/04/2023 8:11 AM [facility] 06/04/2023 8:11 AM CDT us Tiki Lam PRINTING PLATE MAKER-HOSPITAL INSURANCE CLERK GI PROCEDURE ORDERABLES Edited Result - [place] [address] * (ABNORMAL) LIPID PROFILE (10/31/2020 2:55 PM CLIENT DELIVERY MANAGER) Cholesterol 281(H) <200 mg/dL [facility] ACCOUNT BILL Triglycerides 107 <150 mg/dL [facility] ACCOUNT BILL HDL Cholesterol 121 >40 mg/dL [facility] ACCOUNT BILL VLDL Calculated 21 <=30 mg/dL [facility] ACCOUNT BILL LDL Calculated 139(H) <130 mg/dL [facility] ACCOUNT BILL Comment:FASTING Blood BLOOD SPECIMEN / Unknown 10/31/2020 2:55 PM CLIENT DELIVERY MANAGER 10/31/2020 Narrative Resulting Agency Comment Lab Testing performed at: [address] [id number] us Fareed Nuñez MD LAB - CHEMISTRY ORDERABLES F inal Result [facility] ACCOUNT BILL [address] [place] [address] from Last 3 Months or Most Recently Relevant to Health Maintenance Insurance COMMERCIAL GENERIC * Guarantor: JENNIFER RODRIGUEZ Account Type Relation to Patient Date of Phone Billing Address Personal/Family [address] [address] * Guarantor: JENNIFER RODRIGUEZ Account Type Relation to Patient Date of Phone Billing Address Personal/Family [address] [address] Advance Directives * FULL RESUSCITATION (Latest Code Status on File) Date Activated Date Inactivated Comments 02/04/2013 1:53 PM 02/05/2013 12:52 PM Care Teams Call Center Receptionist Relationship Specialty Start Date End Date Fareed Nuñez MD [address] [address] PCP - General Family Medicine 07/22/19 [place] [address] [facility] [address] [phone] Recoverer/Oncologist Hematology and Oncology 07/31/23
--- OUTSIDE RECORDS SUMMARY | 2025-09-09 18:30 | XMS_ITS | Encounter Summary ---
Author Organization [facility] Health Address [facility] [place] [address] Care Team Providers Care Structural Drafter Name Role Phone Darryl Hanson MD Primary Care Provider Diogenes Stuart MD Unavailable Fabienne Miller MD Primary Care Provider [phone] Pravin Crowe DO Unavailable [phone] Thong Demarco MD Unavailable [phone] Fareed Nuñez MD Primary Care Provider Fareed Nuñez MD Unavailable Fareed Nuñez MD Unavailable [phone] Fareed Nuñez MD Unavailable [phone] Zafar Washington MD Unavailable [phone] Fabienne Miller MD Unavailable Encounter Details Date Type Department Care Team (Late st Contact Info) Description 12/19/2012 [facility] Outpatient Visit EXTERNAL [place] [address] [facility] [address] [place] [id number] Social History Tobacco Use Types Packs/Day Years Used Date Smoking Tobacco: Every Day Cigarettes 1 15 Alcohol Use Standard Drinks/Week Comments Yes 0 (1 standard drink = 0.6 oz pur e alcohol) 12 Beers per week for 13 years Sex and Gender Information Value Date Recorded Sex Assigned at Male 08/30/2021 12:31 PM CDT Legal 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 [address] PCP - General 11/21/10 04/10/15 [place] [address] [place] [address] [address] [place] [address] PCP - General Family Medicine 05/10/15 12/18/16 Fareed Nuñez MD [address] [place] [address] [address] [place] [address] PCP - General Family Medicine 07/22/19 Fareed Nuñez [place] [address] [place] [address] [address] [place] [address] PCP - Attributed-[employer] 02/03/20 1 Fareed Nuñez MD [address] [facility] [address] [place] [address] PCP - Attributed-[employer] 03/04/21 10/19/21 Fareed Nuñez MD [address] [facility] [address] [place] [address] PCP - Attributed-[employer] 05/04/22 05/21/23 Fabienne Miller MD [address] [facility] [address] [place] [address] PCP - Attributed-[employer] 03/21/19 03/21/19 Diogenes Stuart MD [facility] [facility] [place] [address] Neurological Surgery 03/10/13 07/30/22 Pravin Crowe DO [address] [place] [address] Orthopedic Surgery 05/10/15 07/30/22 Thong Demarco MD [address] [place] [address] Otolaryngology 05/10/15 07/30/22 [place] [address] [place] [id number] Tub Chucker/Oncologis t Hematology and Oncology 07/31/23 documented as of this encounter
== END 2025-09-09 10:14 | disposition home or self-care (01) ==
LOC: ANHNEURO 10:13
PROVIDERS: Visit Provider Psychiatry & Neurology Neurology
DX: G62.9 Polyneuropathy, unspecified (principal); R27.0 Ataxia, unspecified; F10.90 Alcohol use, unspecified, uncomplicated; Z98.890 Other specified postprocedural states; Z98.1 Arthrodesis status
CPT/HCPCS: 95886; 95910

== ENCOUNTER 2025-10-14 17:02 | Inpatient (IN) | payer OTHER, SELFPAY ==
[2025-10-14] VITALS (33 sets, daily range): BP systolic 81–166; BP diastolic 61–106; PULSE 64–101; RESP 10–20; TEMP 36.8; O2SAT 95–100
--- NOTE | ~2025-10-14 | CT_ITS ---
EXAMINATION: CT brain wo con DATE: 10/14/2025 18:38 INDICATION: Altered mental status. TECHNIQUE: Computed tomography (CT) of the head was performed without intravenous contrast. The mA was adjusted according to patient size. Iterative reconstruction technique was employed. The dose-length product was 605.33 mGy-cm. COMPARISON: MRI brain dated 06/07/2025 FINDINGS: No acute intracranial bleed. No extra-axial collections. No ventriculomegaly or midline shift. There is no effacement of sulci. No acute bony findings. IMPRESSION: 1. Limited noncontrast CT head shows no acute findings. Reviewed, dictated and finalized at location [employer]
--- NOTE | ~2025-10-14 | XR_ITS ---
EXAMINATION: XR chest 1V portable DATE: 10/15/2025 00:45 INDICATION: Sepsis TECHNIQUE: A single frontal view of the chest was obtained. COMPARISON: August 26, 2025 FINDINGS: Mild patchy parenchymal opacification in the left retrocardiac region and right lung base. Upper lung lind clear. Heart size upper limits normal. IMPRESSION: 1. Prominent bibasilar parenchymal markings may represent mild vascular congestion or atypical inflammatory/infectious process. Reviewed, dictated and finalized at location [employer] IMPRESSION: 1. Prominent bibasilar parenchymal markings may represent mild vascular congest ion or atypical inflammatory/infectious process.
--- NOTE | 2025-10-14 17:15 | ECG_ITS ---
Test Date: 2025-10-14 17:22:50 Measurements Intervals Ada Rate: 92 P: 18 OH: 175 QRS: -29 QRSD: 109 T: 39 QT: 367 QTc: 455 Interpretive Statements SINUS RHYTHM LOW QRS VOLTAGE IN PRECORDIAL LEADS INCOMPLETE RIGHT BUNDLE BRANCH BLOCK POSSIBLE ANTERIOR MYOCARDIAL INFARCTION , PROBABLY OLD BORDERLINE T WAVE ABNORMALITY- ANTERIOR LEADS BASELINE ARTIFACT- I, III, VR, AVL, V2, V4-V6 ABNORMAL ECG Compared to ECG 08/26/2025 20:50:44 Low QRS voltage now present Electronically Signed On 10-14-2025 20:29:47 SUPERVISOR CONTACT [employer] SERVICE [employer]ERKS by Rodriguez Shipley D.O.
[2025-10-14 17:34] LABS: Hematocrit 40.4 % (42.0-52.0); Hemoglobin 13.1 g/dL (14.0-18.0); Immature Granulocyte Percent A 0.4 % (0-0.5); Lymphocytes Absolute Auto 2.02 K/mm3 (0.9-3.2); Mean Corpuscular HGB Conc 32.4 g/dl (32-36); Mean Corpuscular Hemoglobin 26.5 pg (26-34); Mean Corpuscular Volume 81.6 fl (80-100); Nucleated Red Blood Cells Absolute Auto 0.000 K/mm3 (0.0-0.012); Nucleated Red Blood Cells Perc 0.0 % (0.0-0.2); Platelet Count Result 246 k/mm3 (150-375); Red Blood Count 4.95 M/mm3 (4.6-6.20); White Blood Count 8.0 K/mm3 (4.5-10.0)
[2025-10-14 17:47] LABS: INR 1.1; Prothrombin Time 13.7 Seconds (11.1-14.7)
[2025-10-14 17:48] LABS: Partial Thromboplastin Time 33.8 Seconds (22.3-36.8)
[2025-10-14 17:50] LABS: Alanine Aminotransferase 24 U/L (6-50); Albumin Level 4.7 g/dL (3.5-5.1); Alkaline Phosphatase 122 U/L (38-126); Anion Gap 10 mmol/L (4-12); Aspartate Amino Transferase 34 U/L (17-59); Bilirubin,Total 0.6 mg/dL (0.2-1.3); Blood Urea Nitrogen 23 mg/dL (9-20); Calcium 9.8 mg/dL (8.4-10.2); Carbon Dioxide 22 mmol/L (22-30); Chloride 107 mmol/L (98-107); Estimated CRCL calculation 57 ml/min; Estimated Glomerular Filt Rate 54; Glucose 119 mg/dL (65-110); Potassium 4.1 mmol/L (3.4-5.0); Sodium 139 mmol/L (137-145); Total Protein 8.6 g/dL (6.3-8.2)
[2025-10-14] MEDS: SODIUM CHLORIDE 0.9% IV 1,000 ML 999 ML IV CONT ×2 (18:07→18:30)
[2025-10-14] MEDS: SODIUM CHLORIDE 0.9% IV 500 ML 999 ML IV CONT (18:40)
--- NOTE | 2025-10-14 18:52 | ED.AMS ---
HPI - Altered Mental Status General Chief Complaint: Altered Mental Status <Dmitriy Riley MD - Last Filed: 10/14/25 19:13> Stated Complaint: AMS <Dmitriy Riley MD - Last Filed: 10/14/25 19:13> Time Seen by Provider: 10/14/25 17:21 <Dmitriy Riley MD - Last Filed: 10/14/25 19:13> History of Present Illness HPI narrative: Patient is a 50-year-old male who presents ER from home with weakness and confusion. Patient typically orient x3 but currently only oriented x1. He is hypotensive. Patient had been in a rehabilitation facility due to weakness from alcoholism. He is now able to walk with walker. He has had decline and physical ability and mental state over last 2-3 days. Go from reports he has been eating and drinking normally and there have been no signs of infection including fever/chills/sweats/cough/dyspnea. He has had no falls. No visual evidence of trauma. Denies any alcohol use at home. Denies any narcotic pain medication or medication changes. <Dmitriy Riley MD - Last Filed: 10/14/25 19:13> Related Data Home Medications: Home Medications ?Medication ?Instructions ?Recorded ?Confirmed ?Last Taken ?Type albuterol 90 mcg/actuation aerosol 90 mcg inhalation TID PRN 06/12/22 07/06/25 03/30/25 History inhaler Shortness Of Breath lisinopril 20 mg tablet 20 mg PO DAILY 07/23/24 07/06/25 03/23/25 History folic acid 1 mg tablet 1 mg PO DAILY 03/30/25 07/06/25 03/29/25 History levothyroxine 50 mcg tablet 50 mcg PO DAILY 03/30/25 07/06/25 03/29/25 History pregabalin 75 mg capsule (Lyrica) 200 mg PO TID 06/05/25 07/06/25 Unknown History amitriptyline 25 mg tablet 25 mg PO QHS 07/06/25 07/06/25 Unknown History tizanidine 2 mg capsule 2 mg PO TID PRN 07/06/25 07/06/25 Unknown History <Dmitriy Riley MD - Last Filed: 10/14/25 19:13> Allergies/Adverse Reactions: Allergies Allergy/AdvReac Type Severity Reaction Status Date / Time tramadol AdvReac Intermediate Agitated Verified 10/15/25 02:09 vancomycin AdvReac Unknown tingling Verified 10/15/25 02:09 <Dmitriy Riley MD - Last Filed: 10/14/25 19:13> Review of Systems Review of Systems: ROS unobtainable: Yes unobtainable due to mental status <Dmitriy Riley MD - Last Filed: 10/14/25 19:13> [facility] Past Medical History Medical History: Medical History Peripheral neuropathy Chronic alcoholic liver disease Rectal bleeding Secondary to rectal ulcer Peripheral neuropathy Alcohol withdrawal syndrome Neuropathy Chronic hyponatremia Hepatic steatosis Noted on CT scan 06/2022 Tobacco abuse Hypertension Asthma Anxiety <Dmitriy Riley MD - Last Filed: 10/14/25 19:13> Surgical History Surgical History: Surgical History H/O knee surgery H/O spinal fusion <Dmitriy Riley MD - Last Filed: 10/14/25 19:13> Family History Family History: Family History Other Family history non-contributory <Dmitriy Riley MD - Last Filed: 10/14/25 19:13> Social History Social History: Social History Social History: The patient lives with his significant other. He has 2 daughters. He has smoked 1 pack per day since he was a teenager. He has a history of heavy alcohol use drinking up to 1 5th of vodka every other day with recent decrease in alcohol consumption down to 2-3 beers a day on weekdays and 10 beers a day on weekends. 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 The patient smokes marijuana nightly. Code status: Full code Smoking packs per day: 2 Smoking cigarettes per day: 40.0 Years smoked: 30 Smoking pack-years: 60.00 Smoking status: Current every day smoker Tobacco type: cigarettes Second hand tobacco smoke exposure: Yes Alcohol intake: current Drinks per week: 20 Alcohol use details: social Substance use: current Substance use type: marijuana Last use: 10/14/2025 Lack of Transportation: No Lack of Food: Never True Current Housing: I Have Housing Concerned About Future Housing: No Difficulty Paying Gas/Electric Bills: No Difficulty Paying for Meds: No Currently Unemployed: No Education: Trade/Vocational Certificate Difficulty w/ Childcare or Family Care: No Living arrangements: with family Gender identity (if verbalized by the patient): Male Spiritual care concerns: No <Dmitriy Riley MD - Last Filed: 10/14/25 19:13> Exam Narrative: GENERAL: Chronically ill-appearing, well-nourished, and in no acute distress. HEAD: Normocephalic, atraumatic. EYES: PERRL and EOMI. ENT: Mucous membranes moist. CHEST: Clear to auscultation. No respiratory distress. HEART: Regular rate and rhythm. Normal peripheral pulses. ABDOMEN: Soft, nontender, nondistended. EXTREMITIES: Normal range of motion. No edema. SKIN: Warm, dry, no rash. NEURO: No drift of the upper lower extremities. No facial droop. Clear speech without expressive aphasia. Alert and oriented x1-2. PSYCH: Flat affect. <Dmitriy Riley MD - Last Filed: 10/14/25 19:13> Course Course Emergency Course: Blood pressure responding well to IV fluid. Still awaiting production of urine. Care will be transferred to Dr. Bailey. Patient does have an ADRIAN. <Dmitriy Riley MD - Last Filed: 10/14/25 19:13> Vital Signs Vital signs: Vital Signs Temperature 98.3 F 10/14/25 17:03 Pulse Rate 98 10/14/25 17:03 Respiratory Rate 20 10/14/25 17:03 Blood Pressure 99/68 L 10/14/25 17:03 Pulse Oximetry 97 10/14/25 17:03 Oxygen Delivery Room Air 10/14/25 17:03 Temperature 97.9 F 10/15/25 06:00 Pulse Rate 67 10/15/25 06:00 Respiratory Rate 20 10/15/25 06:00 Blood Pressure 122/85 10/15/25 06:00 Pulse Oximetry 97 10/15/25 06:00 Oxygen Delivery Room Air 10/14/25 17:15 <Dmitriy Riley MD - Last Filed: 10/14/25 19:13> Vital Signs Temperature 98.3 F 10/14/25 17:03 Pulse Rate 98 10/14/25 17:03 Respiratory Rate 20 10/14/25 17:03 Blood Pressure 99/68 L 10/14/25 17:03 Pulse Oximetry 97 10/14/25 17:03 Oxygen Delivery Room Air 10/14/25 17:03 Temperature 97.9 F 10/15/25 06:00 Pulse Rate 67 10/15/25 06:00 Respiratory Rate 20 10/15/25 06:00 Blood Pressure 122/85 10/15/25 06:00 Pulse Oximetry 97 10/15/25 06:00 Oxygen Delivery Room Air 10/14/25 17:15 <Bartolome Bailey DO - Last Filed: 10/15/25 07:27> MDM MDM Narrative Medical decision making narrative: Patient presented to the ED for altered mental status or weakness. Recently at a rehab facility for weakness due to alcoholism. Labs obtained were concerning for Adrian. Patient signed out to me by Dr. Riley pending UA and UDS. UA showed trace ketones with no UTI. UDS positive for cannabinoids. Patient will require admission for ADRIAN and altered mental status likely due to this. Case was discussed with hospitalist [] <Bartolome Bailey DO - Last Filed: 10/15/25 07:27> Differential Diagnosis Differential Diagnosis: Sepsis, alcohol intoxication, ADRIAN, GI bleed, intracranial hemorrhage, metabolic encephalopathy <Dmitriy Riley MD - Last Filed: 10/14/25 19:13> Lab Data Result diagrams: 10/14/25 17:29 10/14/25 17:29 <Dmitriy Riley MD - Last Filed: 10/14/25 19:13> Labs: Lab Results 10/14/25 10/14/25 10/14/25 Range/Units 17:29 17:59 22:23 WBC 8.0 (4.5-10.0) K/mm3 RBC 4.95 (4.6-6.20) M/mm3 Hgb 13.1 L D (14.0-18.0) g/dL Hct 40.4 L (42.0-52.0) % MCV 81.6 (80-100) fl MCH 26.5 (26-34) pg MCHC 32.4 (32-36) g/dl RDW 18.0 H (11.5-14.5) % Plt Count 246 (150-375) k/mm3 MPV 10.9 H (7.4-10.4) fl Immature Gran % (Auto) 0.4 (0-0.5) % Neut % (Auto) 64.8 (45.5-73.1) % Lymph % (Auto) 25.4 (18.3-44.2) % [place] % (Auto) 7.4 (2.6-8.5) % Eos % (Auto) 1.4 (0-4.4) % Baso % (Auto) 0.6 (0.2-1.2) % Lymph # (Auto) 2.02 (0.9-3.2) K/mm3 [place] # (Auto) 0.6 (0.1-0.6) K/mm3 Eos # (Auto) 0.1 (0-0.3) K/mm3 Baso # (Auto) 0.1 (0.0-0.1) K/mm3 Abs Immat Gran (auto) 0.03 (0.00-0.031) K/mm3 Absolute Neuts (auto) 5.2 (1.3-6.7) K/mm3 Absolute Nucleated RBC 0.000 (0.0-0.012) K/mm3 Nucleated RBC % 0.0 (0.0-0.2) % PT 13.7 (11.1-14.7) Seconds INR 1.1 APTT 33.8 (22.3-36.8) Seconds Sodium 139 (137-145) mmol/L Potassium 4.1 (3.4-5.0) mmol/L Chloride 107 (98-107) mmol/L Carbon Dioxide 22 (22-30) mmol/L Anion Gap 10 (4-12) mmol/L BUN 23 H (9-20) mg/dL Creatinine 1.40 H (0.7-1.3) mg/dL Estim Creat Clear Calc 57 ml/min Estimated GFR 54 L (59 - ) Glucose 119 H (65-110) mg/dL Lactic Acid 1.5 (0.7-2.0) mmol/L Calcium 9.8 (8.4-10.2) mg/dL Total Bilirubin 0.6 (0.2-1.3) mg/dL AST 34 (17-59) U/L ALT 24 (6-50) U/L Alkaline Phosphatase 122 (38-126) U/L Total Protein 8.6 H (6.3-8.2) g/dL Albumin 4.7 (3.5-5.1) g/dL Urine Color Yellow (Yellow) Urine Appearance Clear (Clear) Urine pH 5.5 (5.0-9.0) Ur Specific [place] 1.017 (1.001-1.035) Urine Protein Negative (Negative) mg/dL Urine Glucose (UA) Negative (Negative) mg/dL Urine Ketones Trace H (Negative) mg/dL Ur Blood (Man) Negative (Negative) Urine Nitrate Negative (Negative) Urine Bilirubin Negative (Negative) Urine Urobilinogen 0.2 (<2.0) mg/dL Leukocyte Esterase Rfl Negative (Negative) [place]/UL Urine Opiates Screen Negative (Negative) Urine Methadone Screen Negative (Negative) Ur Barbiturates Screen Negative (Negative) Ur Phencyclidine Scrn Negative (Negative) Ur Amphetamine Screen Negative (Negative) U Benzodiazepines Scrn Negative (Negative) Urine Cocaine Screen Negative (Negative) U Cannabinoids Screen Positive A (Negative) Ethyl Alcohol < 10 (<10) mg/dL <Dmitriy Riley MD - Last Filed: 10/14/25 19:13> Lab Results 10/14/25 10/14/25 10/14/25 Range/Units 17:29 17:59 22:23 WBC 8.0 (4.5-10.0) K/mm3 RBC 4.95 (4.6-6.20) M/mm3 Hgb 13.1 L D (14.0-18.0) g/dL Hct 40.4 L (42.0-52.0) % MCV 81.6 (80-100) fl MCH 26.5 (26-34) pg MCHC 32.4 (32-36) g/dl RDW 18.0 H (11.5-14.5) % Plt Count 246 (150-375) k/mm3 MPV 10.9 H (7.4-10.4) fl Immature Gran % (Auto) 0.4 (0-0.5) % Neut % (Auto) 64.8 (45.5-73.1) % Lymph % (Auto) 25.4 (18.3-44.2) % [place] % (Auto) 7.4 (2.6-8.5) % Eos % (Auto) 1.4 (0-4.4) % Baso % (Auto) 0.6 (0.2-1.2) % Lymph # (Auto) 2.02 (0.9-3.2) K/mm3 [place] # (Auto) 0.6 (0.1-0.6) K/mm3 Eos # (Auto) 0.1 (0-0.3) K/mm3 Baso # (Auto) 0.1 (0.0-0.1) K/mm3 Abs Immat Gran (auto) 0.03 (0.00-0.031) K/mm3 Absolute Neuts (auto) 5.2 (1.3-6.7) K/mm3 Absolute Nucleated RBC 0.000 (0.0-0.012) K/mm3 Nucleated RBC % 0.0 (0.0-0.2) % PT 13.7 (11.1-14.7) Seconds INR 1.1 APTT 33.8 (22.3-36.8) Seconds Sodium 139 (137-145) mmol/L Potassium 4.1 (3.4-5.0) mmol/L Chloride 107 (98-107) mmol/L Carbon Dioxide 22 (22-30) mmol/L Anion Gap 10 (4-12) mmol/L BUN 23 H (9-20) mg/dL Creatinine 1.40 H (0.7-1.3) mg/dL Estim Creat Clear Calc 57 ml/min Estimated GFR 54 L (59 - ) Glucose 119 H (65-110) mg/dL Lactic Acid 1.5 (0.7-2.0) mmol/L Calcium 9.8 (8.4-10.2) mg/dL Total Bilirubin 0.6 (0.2-1.3) mg/dL AST 34 (17-59) U/L ALT 24 (6-50) U/L Alkaline Phosphatase 122 (38-126) U/L Total Protein 8.6 H (6.3-8.2) g/dL Albumin 4.7 (3.5-5.1) g/dL Urine Color Yellow (Yellow) Urine Appearance Clear (Clear) Urine pH 5.5 (5.0-9.0) Ur Specific [place] 1.017 (1.001-1.035) Urine Protein Negative (Negative) mg/dL Urine Glucose (UA) Negative (Negative) mg/dL Urine Ketones Trace H (Negative) mg/dL Ur Blood (Man) Negative (Negative) Urine Nitrate Negative (Negative) Urine Bilirubin Negative (Negative) Urine Urobilinogen 0.2 (<2.0) mg/dL Leukocyte Esterase Rfl Negative (Negative) [place]/UL Urine Opiates Screen Negative (Negative) Urine Methadone Screen Negative (Negative) Ur Barbiturates Screen Negative (Negative) Ur Phencyclidine Scrn Negative (Negative) Ur Amphetamine Screen Negative (Negative) U Benzodiazepines Scrn Negative (Negative) Urine Cocaine Screen Negative (Negative) U Cannabinoids Screen Positive A (Negative) Ethyl Alcohol < 10 (<10) mg/dL <Bartolome Bailey DO - Last Filed: 10/15/25 07:27> Imaging Data Radiologist's impression: ITS Impressions Head CT 10/14/25 18:44 IMPRESSION: 1. Limited noncontrast CT head shows no acute findings. <Dmitriy Riley MD - Last Filed: 10/14/25 19:13> ITS Impressions Head CT 10/14/25 18:44 IMPRESSION: 1. Limited noncontrast CT head shows no acute findings. <Bartolome Bailey DO - Last Filed: 10/15/25 07:27> ECG Data EKG #1: ECG completion date: 10/14/25 <Dmitiry Riley MD - Last Filed: 10/14/25 19:13> ECG completion time: 17:22 <Dmitriy Riley MD - Last Filed: 10/14/25 19:13> normal rate (92), sinus rhythm, normal QRS and RBBB (incomplete) <Dmitriy Riley MD - Last Filed: 10/14/25 19:13> Discharge Plan Discharge Clinical Impression: Altered mental status, Acute kidney injury <Dmitriy Riley MD - Last Filed: 10/14/25 19:13> Patient Disposition: Still a Patient <Dmitriy Riley MD - Last Filed: 10/14/25 19:13> Condition: Stable <Dmitriy Riley MD - Last Filed: 10/14/25 19:13>
[2025-10-14 22:30] LABS: Add Urine Microscopic? NO; Appearance Urine Clear (Clear); Glucose Urine UA Negative (Negative); Leukocyte Esterase Ur Negative LEU/UL (Negative); Nitrate Urine Negative (Negative); Specific Grav Ur 1.017 (1.001-1.035)
[2025-10-14 23:33] LABS: Cannabinoid Screen Urine Positive (Negative)
[2025-10-15] VITALS (15 sets, daily range): BP systolic 122–150; BP diastolic 65–119; PULSE 64–83; RESP 11–20; TEMP 36.6–37.1; O2SAT 97–100; BMI 27.7
[2025-10-15] MEDS: SODIUM CHLORIDE 0.9% IV 1,000 ML 150 ML IV CONT (00:54)
--- NOTE | 2025-10-15 01:36 | WPCEDHO ---
ED Hand Off Checklist All vitals saved: Yes IV Site documented: Yes All med administrations documented: Yes Triage Note Triage Note Pt brought in by EMS from home 10/14/25 17:03 for worsening AMS x last 36 hours , specifically very forgetful. Hx of same, to the point where he was in a rehab facility and using a wheelchair (unknown time home since then). Pt is A&Ox1 when verbalizing information, but able to make conversation. FSBS 178. 104/60 BP for EMS, currently 99/ 68. Per EMS, stated that it could be a possible medication issue, an episode happened previously after missing medications. EMS states pt smelled strongly of ETOH, hx of heavy alcohol consumption. Equal strength bilaterally, speech clear. Pt was able to walk for EMS, shuffling gait. Pt states, I feel weird, I just can't remember anything. Like we went out today but I have no idea where we went. Allergies tramadol Adverse Reaction (Intermediate, Verified 08/26/25 20:46) Agitated vancomycin Adverse Reaction (Unknown, Verified 08/26/25 20:46) tingling Question of throat tightness that resolved without treatment Family History (Last Reviewed 08/26/25 @ 21:23 by Evens Aquino MD) Other Family history non-contributory Active Medications including assessments/comments Sodium Chloride (Normal Saline Iv) 1,000 mls @ 150 mls/hr IV CONT .Q6H40M STA Stop: 10/15/25 02:55 Last Admin: 10/15/25 00:54 Dose: 150 mls/hr Documented By: RAVEN Infusion/Titration Document 10/15/25 00:54 RAVEN (Rec: 10/15/25 00:54 RAVEN [id number]) Intake IV Site Peripheral Access Right Antecubital Container Volume 1,000 Waste Amount 0 Dosing Infusion Rate 150 Cumulative Dose Not Applicable Increase/Decrease Started Elapsed Time Elapsed Time ( 0m minutes) Administered/Completed Medications Discontinued Medications Sodium Chloride (Normal Saline Iv) 1,000 mls @ 999 mls/hr IV CONT .Q1H1M STA Stop: 10/14/25 18:42 Last Infusion: 10/14/25 18:40 Dose: Infused Documented By: Admin: 10/14/25 18:07 Dose: 999 mls/hr Documented By: LAURA Sodium Chloride (Normal Saline Iv) 1,000 mls @ 999 mls/hr IV CONT .Q1H1M STA Stop: 10/14/25 18:42 Last Infusion: 10/14/25 19:31 Dose: Infused Documented By: Admin: 10/14/25 18:30 Dose: 999 mls/hr Documented By: NATALIE Sodium Chloride (Normal Saline Iv) 500 mls @ 999 mls/hr IV CONT .Q31M STA Stop: 10/14/25 18:12 Last Infusion: 10/14/25 19:11 Dose: Infused Documented By: Admin: 10/14/25 18:40 Dose: 999 mls/hr Documented By: NATALIE Sodium Chloride (Normal Saline Iv) 1,000 mls @ 150 mls/hr IV CONT .Q6H40M STA Stop: 10/15/25 06:51 Last Admin: 10/15/25 00:54 Dose: Not Given Documented By: RAVEN Non-Admin Reason: Order Discontinued Interventions/Assessments IV / Saline Lock, Insert Start: 10/14/25 17:15 Freq: STAT Status: Active Protocol: Document 10/14/25 17:15 BHP (Rec: 10/14/25 17:32 BHP [id number]) IV Assessment Peripheral Access Right Antecubital IV Catheter Access Initiated IV Insertion Date 10/14/25 IV Insertion Time 17:15 Catheter Gauge 18 IV Insertion 1 Attempts Ultrasound Used for No Placement IV Site Assessment WNL IV Care and WNL Maintenance PA: Cardiovascular Assessment Start: 10/14/25 16:54 Freq: Status: Complete Protocol: Document 10/14/25 17:15 BHP (Rec: 10/14/25 17:36 BHP [id number]) Cardiovascular Assessment Cardiovascular None Symptoms PA: Neurological Assessment Start: 10/14/25 16:54 Freq: Status: Complete Protocol: Document 10/14/25 22:00 LAURA (Rec: 10/14/25 23:55 LAURA [id number]) Neurological Assessment Level of Alert,Awake Consciousness Arousable to Verbal Orientation Oriented to Person,Oriented to Place,Oriented to Time Neurological Confusion Symptoms Hallucination Type None Unable to Redirect No Behavior Behavior Cooperative,Withdrawn Additional memory improved, now A&Ox3, clear speech, appropriate Neurological conversation Comments Ability to Maintain Normal Balance Facial Symmetry Symmetrical Speech Pattern Clear [place] Coma Scale Eyes Open Verbal Oriented and Alert Motor Follows Commands [place] Coma Total 15 Score PA: Respiratory Assessment Start: 10/14/25 16:54 Freq: Status: Complete Protocol: Document 10/14/25 17:15 BHP (Rec: 10/14/25 17:36 BHP [id number]) Respiratory Assessment Symptoms None Adult Capillary Normal/Less than 2 Seconds Refill Effort Normal Pattern Regular Depth Normal Oxygen Delivery Oxygen Delivery Room Air Last Vital Signs Temperature 98.3 F 10/14/25 17:03 Pulse Rate 81 10/15/25 01:32 Respiratory Rate 12 10/15/25 01:32 Pulse Oximetry 100 10/15/25 01:32 Blood Pressure 122/65 10/15/25 01:32 Blood Pressure Mean 82 10/15/25 01:32 Blood Pressure Position Supine 10/15/25 00:31 Oxygen Delivery Room Air 10/14/25 17:15 Weight 81.6 kg 10/14/25 17:03 Last Result - Abnormals Only Hgb 13.1 g/dL (14.0-18.0) L D 10/14/25 17:29 Hct 40.4 % (42.0-52.0) L 10/14/25 17:29 RDW 18.0 % (11.5-14.5) H 10/14/25 17:29 MPV 10.9 fl (7.4-10.4) H 10/14/25 17:29 BUN 23 mg/dL (9-20) H 10/14/25 17:29 Creatinine 1.40 mg/dL (0.7-1.3) H 10/14/25 17:29 Estimated GFR 54 (59-) L 10/14/25 17:29 Glucose 119 mg/dL (65-110) H 10/14/25 17:29 Total Protein 8.6 g/dL (6.3-8.2) H 10/14/25 17:29 Urine Ketones Trace mg/dL (Negative) H 10/14/25 22:23 U Cannabinoids Screen Positive (Negative) A 10/14/25 22:23 Most Recent CIWA Score CIWA Total Score 1 10/15/25 00:31
--- NOTE | 2025-10-15 02:07 | ADMGEN ---
This patient, Tyree Rodriguez, was admitted to 3 Med Surg Room 332-01. Patient/family oriented to hospital policies and general routines including ID bracelet, bed and alarms, visiting hours, pain management, procedures, bathroom and other care routines, personal items, smoking policy, room service/diet, and visiting hours. Information on how to activate the Rapid Response Team has been discussed. Patient/Family are encouraged to report perceived risks to care and to ask questions if they do not understand what they are told or what they should do.
[2025-10-15] MEDS: ACETAMINOPHEN 325 MG TABLET 650 MG PO ×2 (03:39→09:28)
--- NOTE | 2025-10-15 06:04 | PC.NURSE ---
pt was confused on arrival to unit this nurse was unable to get information from patient about his medical hx and medications. attempted to call pts GF but received no answer. pt was confused on which medications he take.
--- NOTE | 2025-10-15 08:02 | PM.IMHP2 ---
H&P: HPI History of Present Illness Date/Time: 10/15/25 08:02 Chief Complaint: ADRIAN Narrative: 50 year old male presents to the ED from home via girlfriend for weakness and confusion. Patient is noted to have a past medical history of; Alcohol withdrawal syndrome, Chronic alcoholic liver disease, Chronic hyponatremia,Hepatic steatosis, Neuropathy, and tobacco abuse. Patient is a poor historian and his girlfriend was not present in the room during the time of the exam. Patient only knows self. Patient denies being in pain, fever, nausea, vomiting, and diarrhea. Patient reports he is just confused and cannot finish answering questions In ED: ECG showed;SINUS RHYTHM LOW QRS VOLTAGE IN PRECORDIAL LEADS INCOMPLETE RIGHT BUNDLE BRANCH BLOCK POSSIBLE ANTERIOR MYOCARDIAL INFARCTION , PROBABLY OLD BORDERLINE T WAVE ABNORMALITY- ANTERIOR LEADS BASELINE ARTIFACT- I, III, VR, AVL, V2, V4-V6 ABNORMAL ECG Compared to ECG 08/26/25 Low QRS voltage now present Review of Systems Review of Systems: All systems reviewed & are unremarkable except as noted in HPI and below PMFSH Past Medical History Medical History Peripheral neuropathy Chronic alcoholic liver disease Rectal bleeding Secondary to rectal ulcer Peripheral neuropathy Alcohol withdrawal syndrome Neuropathy Chronic hyponatremia Hepatic steatosis Noted on CT scan 06/2022 Tobacco abuse Hypertension Asthma Anxiety Surgical History Surgical History H/O knee surgery H/O spinal fusion Family History Family History Other Family history non-contributory Social History Social History Social History: The patient lives with his significant other. He has 2 daughters. He has smoked 1 pack per day since he was a teenager. He has a history of heavy alcohol use drinking up to 1 5th of vodka every other day with recent decrease in alcohol consumption down to 2-3 beers a day on weekdays and 10 beers a day on weekends. 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 The patient smokes marijuana nightly. Code status: Full code Smoking packs per day: 2 Smoking cigarettes per day: 40.0 Years smoked: 30 Smoking pack-years: 60.00 Smoking status: Current every day smoker Tobacco type: cigarettes Second hand tobacco smoke exposure: Yes Alcohol intake: current Drinks per week: 20 Alcohol use details: social Substance use: current Substance use type: marijuana Last use: 10/14/2025 Lack of Transportation: No Lack of Food: Never True Current Housing: I Have Housing Concerned About Future Housing: No Difficulty Paying Gas/Electric Bills: No Difficulty Paying for Meds: No Currently Unemployed: No Education: Trade/Vocational Certificate Difficulty w/ Childcare or Family Care: No Living arrangements: with family Gender identity (if verbalized by the patient): Male Spiritual care concerns: No Meds Home Medications and Allergies Home Medications ?Medication ?Instructions ?Recorded ?Confirmed ?Type albuterol 90 mcg/actuation aerosol 90 mcg inhalation TID PRN 06/12/22 10/15/25 History inhaler Shortness Of Breath lisinopril 20 mg tablet 20 mg PO DAILY 07/23/24 10/15/25 History hydrocodone 5 mg-acetaminophen 325 1 tablet PO Q8H PRN pain #7 tabs 02/22/25 10/15/25 Rx mg tablet folic acid 1 mg tablet 1 mg PO DAILY 03/30/25 10/15/25 History levothyroxine 50 mcg tablet 50 mcg PO DAILY 03/30/25 10/15/25 History bisacodyl 5 mg tablet,delayed 5 mg PO QAM 30 days #30 tabs 04/21/25 10/15/25 Rx release (Laxative (bisacodyl)) citalopram 20 mg tablet (Celexa) 10 mg (1/2 x 20 mg) PO QAM 30 days 04/21/25 10/15/25 Rx #15 tabs duloxetine 30 mg capsule,delayed 30 mg PO Q12HR 30 days #60 caps 04/21/25 10/15/25 Rx release (Cymbalta) multivitamin 1 tablet PO DAILY #30 tabs 04/21/25 10/15/25 Rx thiamine HCl (vitamin B1) 100 mg 100 mg PO QAM 30 days #30 tabs 04/21/25 10/15/25 Rx tablet (Vitamin B-1) polysaccharide iron complex 150 mg 150 mg PO DAILY@0800 #30 caps 05/05/25 10/15/25 Rx iron capsule vitamin B complex (Vitamins B 1 cap PO QAM #90 caps 05/05/25 10/15/25 Rx Complex capsule) pregabalin 75 mg capsule (Lyrica) 200 mg PO Q12H 06/05/25 10/15/25 History amitriptyline 25 mg tablet 25 mg PO QHS 07/06/25 10/15/25 History omeprazole 20 mg capsule,delayed 20 mg PO BID #30 caps 08/26/25 10/15/25 Rx release buspirone 7.5 mg tablet 7.5 mg PO BID 10/15/25 10/15/25 History Allergies Allergy/AdvReac Type Severity Reaction Status Date / Time tramadol AdvReac Intermediate Agitated Verified 10/15/25 02:09 vancomycin AdvReac Unknown tingling Verified 10/15/25 02:09 Vital Signs Vital Signs - 24 hr 10/14/25 17:03 10/14/25 17:12 10/14/25 17:15 Temperature 98.3 F Pulse Rate 98 97 Respiratory Rate 20 12 Blood Pressure 99/68 L 81/72 L Pulse Oximetry 97 97 Oxygen Delivery Room Air Room Air 10/14/25 17:16 10/14/25 17:31 10/14/25 17:46 Temperature Pulse Rate 101 H 90 94 Respiratory Rate 11 L 10 L 10 L Blood Pressure 91/65 L 86/66 L 92/61 L Pulse Oximetry 98 Oxygen Delivery 10/14/25 18:01 10/14/25 18:28 10/14/25 18:31 Temperature Pulse Rate 90 78 78 Respiratory Rate 10 L 11 L 13 Blood Pressure 91/70 L 100/80 105/79 Pulse Oximetry 100 100 Oxygen Delivery 10/14/25 18:48 10/14/25 19:17 10/14/25 19:30 Temperature Pulse Rate 78 73 73 Respiratory Rate 14 14 14 Blood Pressure 115/69 134/88 Pulse Oximetry 96 Oxygen Delivery 10/14/25 19:32 10/14/25 19:45 10/14/25 19:47 Temperature Pulse Rate 72 66 70 Respiratory Rate 16 16 Blood Pressure 142/84 H 151/95 H Pulse Oximetry 95 Oxygen Delivery 10/14/25 20:00 10/14/25 20:02 10/14/25 20:15 Temperature Pulse Rate 79 77 75 Respiratory Rate 16 14 14 Blood Pressure 115/83 Pulse Oximetry Oxygen Delivery 10/14/25 20:16 10/14/25 20:30 10/14/25 20:32 Temperature Pulse Rate 72 79 80 Respiratory Rate 14 14 13 Blood Pressure 125/85 131/89 Pulse Oximetry Oxygen Delivery 10/14/25 20:47 10/14/25 21:00 10/14/25 21:15 Temperature Pulse Rate 84 69 67 Respiratory Rate 14 16 12 Blood Pressure 124/90 Pulse Oximetry 98 Oxygen Delivery 10/14/25 21:17 10/14/25 21:30 10/14/25 21:32 Temperature Pulse Rate 70 65 64 Respiratory Rate 14 18 12 Blood Pressure 148/100 H 166/106 H Pulse Oximetry Oxygen Delivery 10/14/25 21:45 10/14/25 21:47 10/14/25 22:02 Temperature Pulse Rate 65 72 Respiratory Rate 17 14 Blood Pressure 146/106 H 140/97 H Pulse Oximetry Oxygen Delivery 10/14/25 22:17 10/14/25 22:32 10/14/25 22:47 Temperature Pulse Rate Respiratory Rate Blood Pressure 157/97 H 160/94 H 156/98 H Pulse Oximetry Oxygen Delivery 10/14/25 23:32 10/15/25 00:02 10/15/25 00:31 Temperature Pulse Rate 72 Respiratory Rate 18 Blood Pressure 130/91 H 145/119 H 148/93 H Pulse Oximetry 100 Oxygen Delivery 10/15/25 00:32 10/15/25 01:02 10/15/25 01:32 Temperature Pulse Rate 66 81 Respiratory Rate 11 L 12 Blood Pressure 148/93 H 141/87 H 122/65 Pulse Oximetry 99 100 Oxygen Delivery 10/15/25 01:57 10/15/25 02:17 10/15/25 02:50 Temperature 97.8 F 98.4 F Pulse Rate 75 64 Respiratory Rate 18 20 Blood Pressure 122/65 141/93 H 138/76 Pulse Oximetry 98 97 Oxygen Delivery 10/15/25 04:29 10/15/25 06:00 Temperature 97.9 F Pulse Rate 70 67 Respiratory Rate 20 Blood Pressure 122/85 Pulse Oximetry 97 Oxygen Delivery Exam Const: General: comfortable and no acute distress Eyes: General: appearance normal, both eyes and all related structures Sclera: sclerae normal Pupils: Equal, round and reactive pupils present Neck: Neck: supple and no JVD Thyroid: thyroid normal Resp: Effort & Inspection: normal respiratory effort Auscultation: clear to auscultation bilaterally Cardio: Rate: regular rate Rhythm: regular rhythm GI: GI Palp: Yes Soft to palpation Skin: General skin exam: normal color Neuro: General: oriented to person, No gait normal, moves all extremities, Normal light touch and pain sensation and CN's II-XI intact bilaterally Cranial nerves: Yes CN's II-XII intact bilaterally, Yes Equal, round and reactive pupils present, Yes Normal hearing present and Yes Ability to bilaterally rotate head present Cognition (Neuro): abnormal cognition Speech: normal speech Gait exam (Neuro): gait abnormal and Staggering gait present Motor exam (neuro): 5/5 motor strength present throughout Psych: Affect: Anxious affect present Results Labs Labs: Short CBC 10/14/25 Range/Units 17:29 WBC 8.0 (4.5-10.0) K/mm3 Hgb 13.1 L D (14.0-18.0) g/dL Hct 40.4 L (42.0-52.0) % Plt Count 246 (150-375) k/mm3 BMP 10/14/25 17:29 Sodium 139 Potassium 4.1 Chloride 107 Carbon Dioxide 22 BUN 23 H Creatinine 1.40 H Glucose 119 H Calcium 9.8 Liver Function 10/14/25 Range/Units 17:29 Total Bilirubin 0.6 (0.2-1.3) mg/dL AST 34 (17-59) U/L ALT 24 (6-50) U/L Alkaline Phosphatase 122 (38-126) U/L Albumin 4.7 (3.5-5.1) g/dL Urine 10/14/25 Range/Units 22:23 Urine Color Yellow (Yellow) Urine Appearance Clear (Clear) Urine pH 5.5 (5.0-9.0) Ur Specific [place] 1.017 (1.001-1.035) Urine Protein Negative (Negative) mg/dL Urine Glucose (UA) Negative (Negative) mg/dL Quality VTE Prophylaxis VTE prophylaxis: mechanical ordered Assessment and Plan Assessment and plan (1) Wernicke-Korsakoff syndrome (alcoholic): Code(s): 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 During the patient last visit he also was negative for ETOH. In the ED a CT scan was preformed- no acute findings Patient has a H history of alcohol and was being treated inpatient. CIWA protocol continued- will monitor for withdrawals Fall precaution initiated- PT/OT ordered Electrolyte panel ordered TSH ordered B12 and Folate labs ordered Folic acid and multivitamin PO ordered Thiamine 500 mg IV TID for 2 days and after that 250 IV daily for 5 days Will continue to monitor electrolytes and vitamin levels (2) Acute kidney injury: Code(s): N17.9 - Acute kidney failure, unspecified Status: Acute Assessment and Plan: Cr baseline is about 1, in the ED pt Cr was 1.4 BUN baseline is about 15, in the ED current 23 Will repreat labs tomorrow morning and monitor fluid I/O- considering IV fluids pending labs (3) Altered mental status: Code(s): R41.82 - Altered mental status, unspecified Status: Acute Assessment and Plan: Likely related to Wernicke-Korsakoff syndrome see above (4) Neuropathy: Code(s): G62.9 - Polyneuropathy, unspecified Status: Acute Assessment and Plan: Patient has a history of neuropathy and upon assessment complained about his legs feeling numb Likely related to B12 deficiency and past alcohol abuse Folate and B12 labs ordered Considering ordering vitamin B12 pending labs (5) Tobacco abuse: Code(s): Z72.0 - Tobacco use Status: Chronic Assessment and Plan: Smoking cessation education discussed with patient, will rediscussed after patient returns to baseline
[2025-10-15] MEDS: THERAPEUTIC MULTIVITAMINS/MINERALS TAB (*BKC) 1 TABLET PO (13:32)
[2025-10-15 14:03] LABS: Vitamin B12 701.0 pg/mL (239-931)
[2025-10-15] MEDS: THIAMINE 500 MG/NS 100 ML 500 MG/100 ML BAG 200 MG IVPB ×2 (14:36→21:28)
[2025-10-15] MEDS: NICOTINE (*PBKC) 14 MG PATCH 1 PATCH TRANSDERM (18:24)
[2025-10-15] MEDS: diazePAM INJ (*CRX) 10 MG/2 ML SYRINGE 5 MG IV PUSH (18:27)
[2025-10-15 19:25] LABS: Influenza A QL RT-PCR Negative (Negative); Influenza B QL RT-PCR Negative (Negative); RSV RNA, RT-PCR Negative (Negative); SARS-CoV-2 RNA PCR Negative (Negative)
[2025-10-15] MEDS: chlordiazePOXIDE (*CRX) 25 MG CAPSULE PO (22:15)
[2025-10-16] VITALS (8 sets, daily range): BP systolic 115–143; BP diastolic 72–96; PULSE 62–92; RESP 12–18; TEMP 35.7–37.1; O2SAT 97–100
[2025-10-16] MEDS: diazePAM INJ (*CRX) 10 MG/2 ML SYRINGE 5 MG IV PUSH ×2 (04:10→09:18)
[2025-10-16] MEDS: THIAMINE 500 MG/NS 100 ML 500 MG/100 ML BAG 200 MG IVPB ×3 (05:08→21:23)
[2025-10-16 06:13] LABS: Ammonia < 9 umol/L (9-30)
[2025-10-16 06:14] LABS: Anion Gap 5 mmol/L (4-12); Carbon Dioxide 24 mmol/L (22-30); Chloride 108 mmol/L (98-107); Potassium 3.8 mmol/L (3.4-5.0); Sodium 137 mmol/L (137-145)
[2025-10-16 06:25] LABS: Immunoglobulin A 149 mg/dL (70-400); Immunoglobulin G 797 mg/dL (700-1600); Immunoglobulin M 297 mg/dL (40-230)
[2025-10-16 06:45] LABS: Thyroid Stimulating Hormone Reflex 1.640 uIU/mL (0.465-4.68)
[2025-10-16 07:27] LABS: Vitamin B12 692.0 pg/mL (239-931)
[2025-10-16] MEDS: FOLIC ACID 1 MG TABLET PO (09:19)
[2025-10-16] MEDS: NICOTINE (*PBKC) 14 MG PATCH 1 PATCH TRANSDERM (09:19)
[2025-10-16] MEDS: THERAPEUTIC MULTIVITAMINS/MINERALS TAB (*BKC) 1 TABLET PO (09:19)
--- NOTE | 2025-10-16 09:27 | P.PNIM_ITS ---
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 During the patient last visit he also was negative for ETOH. In the ED a CT scan was preformed- no acute findings Patient has a H history of alcohol and was being treated inpatient. CIWA protocol continued- will monitor for withdrawals, last CIWA was 2 Fall precaution initiated- PT/OT/ST ordered -ST with recs for outpt or HH continued ST Electrolyte panel ordered TSH WDL B12 and Folate labs WDL Folic acid and multivitamin PO ordered Thiamine 500 mg IV TID for 2 days and after that 250 IV daily for 5 days Will continue with daily labs (2) Acute kidney injury: Code(s): N17.9 - Acute kidney failure, unspecified Status: Acute Assessment and Plan: Resolved. Cr baseline is about 1, in the ED pt Cr was 1.4, now WDL BUN baseline appears to be around 10-19, currently back to baseline Continue daily labs (3) Altered mental status: Code(s): R41.82 - Altered mental status, unspecified Status: Acute Assessment and Plan: Likely related to Wernicke-Korsakoff syndrome see above (4) Neuropathy: Code(s): G62.9 - Polyneuropathy, unspecified Status: Acute Assessment and Plan: Patient has a history of neuropathy and upon assessment complained about his legs feeling numb Likely related to B12 deficiency and past alcohol abuse Folate and B12 WDL Restarted Lyrica (5) Tobacco abuse: Code(s): Z72.0 - Tobacco use Status: Chronic Assessment and Plan: Smoking cessation education discussed with patient, will rediscussed after patient returns to baseline Nicotine patch applied (6) Anxiety: Code(s): F41.9 - Anxiety disorder, unspecified Status: Chronic Assessment and Plan: On several medications, continued today s/p ST and med list confirmation with pt and S.O. Jael. Plan Pending OT/PT, IV thiamine, daily labs Time Spent With Patient Time with patient: 25 - 35 minutes Subjective Date/time seen: 10/16/25 1018 Interval history: Pt resting comfortably lying in bed. Pt A&O x3 today, unable to tell me the next holiday. Slow to answer, but reports this is his baseline. He is unable to tell me when he last drank etoh or what / volume he usually drinks. Had a lengthy discussion with pt's S.O. Jael at the bedside. Confirmed medications with pt and S.O., will restart today. She states that his current neuro status is not at his baseline. She does report that he is better than what he has been the last several days but he is normally not slow to answer and that he is chatty, charismatic, and makes conversation. Pt went to PCP on 10/13 with these concerns but they worsened sometime after that appt, prompting them to come to the ED with the guidance of their PCP. Pt was here and dx with Jesusdaniel macieljaspreet's in March and has been sober since. He was at [facility] for awhile and recently returned home. PCP wanted to have pt perform ST/PT/OT at home, but per S.O. his insurance does not support this. I asked our CC team about this today, they are following. Review of Systems Review of Systems: All systems reviewed & are unremarkable except as noted in HPI and below ENT: Reports Normal hearing present Neurologic: Reports Normal hearing present Exam Const: General: comfortable and no acute distress HENMT: Face/Nose/Sinus: Normal nares present Mouth: Yes moist mucous membranes Eyes: General: appearance normal, both eyes and all related structures Sclera: sclerae normal Pupils: Equal, round and reactive pupils present Neck: Neck: supple and no JVD Resp: Effort & Inspection: normal respiratory effort Auscultation: clear to auscultation bilaterally Cardio: Rate: regular rate Rhythm: regular rhythm Skin: General skin exam: normal color Neuro: General: oriented to person, moves all extremities and Normal light touch and pain sensation Speech: normal speech Motor exam (neuro): Normal motor muscle tone present throughout Sensory Exam: normal sensation Other: A&O x3, does not know what the next holiday is. Slow to answer questions and find wording, states this is baseline. Extrem: General: normal to inspection Psych: Affect: normal affect Objective Data Vital Signs Vital Signs: Vital Signs - 24 hr 10/15/25 12:00 10/15/25 12:00 10/15/25 14:00 Temperature 98.2 F 98.8 F Pulse Rate 70 69 73 Respiratory Rate 12 12 Blood Pressure 133/80 144/92 H Pulse Oximetry 97 97 10/15/25 16:00 10/15/25 16:00 10/15/25 20:00 Temperature 98.4 F 98.0 F Pulse Rate 78 70 83 Respiratory Rate 16 20 Blood Pressure 150/94 H 130/87 Pulse Oximetry 98 97 10/16/25 06:00 Temperature 98.0 F Pulse Rate 73 Respiratory Rate 18 Blood Pressure 142/95 H Pulse Oximetry 97 Intake/Output Intake/Output: Intake & Output 10/13/25 10/14/25 10/15/25 10/16/25 23:59 23:59 23:59 23:59 Intake Total 2500 598 330 Output Total 0 1010 Balance 2500 -412 330 Meds/Results Medications: Active Medications Generic Name Dose Route Start Last Admin Trade Name Freq PRN Reason Stop Dose Admin Acetaminophen 650 mg 10/15/25 03:34 10/15/25 09:28 Acetaminophen 325 Mg Tablet PO 650 mg Q4H PRN Administration Headache Chlordiazepoxide HCl 25 mg 10/15/25 18:07 10/15/25 22:15 Chlordiazepoxide (*Crx) 25 Mg Capsule PO 25 mg Q6H PRN Administration Withdrawal Diazepam 5 mg 10/15/25 18:07 10/16/25 09:18 Diazepam Inj (*Crx) 10 Mg/2 Ml Syringe IV PUSH 5 mg BID PRN Administration Withdrawal Folic Acid 1 mg 10/16/25 09:00 10/16/25 09:19 Folic Acid 1 Mg Tablet PO 1 mg DAILY BRYON Administration Thiamine HCl 500 mg in 100 mls @ 200 mls/hr 10/15/25 14:00 10/16/25 05:08 IVPB 10/17/25 06:29 200 mls/hr Q8HR BRYON Administration Thiamine HCl 250 mg/ Sodium 102.5 mls @ 205 mls/hr 10/18/25 09:00 Chloride IVPB 10/22/25 09:29 DAILY BRYON Multivitamins/Calcium 1 tablet 10/15/25 11:50 10/16/25 09:19 Therapeutic Multivitamins/Minerals Tab (*Bkc) PO 1 tablet DAILY BRYON Administration Nicotine 1 patch 10/15/25 18:10 10/16/25 09:19 Nicotine (*Pbkc) 14 Mg Patch TRANSDERM 1 patch DAILY BRYON Administration Radiology Results: ITS Impressions Head CT 10/14/25 18:44 IMPRESSION: 1. Limited noncontrast CT head shows no acute findings. Chest X-Ray 10/15/25 07:50 IMPRESSION: 1. Prominent bibasilar parenchymal markings may represent mild vascular congestion or atypical inflammatory/infectious process. Labs Labs: Laboratory Results - last 24 hr 10/15/25 10/15/25 10/15/25 12:08 18:36 23:59 Sodium Potassium Chloride Carbon Dioxide Anion Gap POC Capillary Glucose 118 H Ammonia Vitamin B12 701.0 Folate 14.6 TSH (Reflex) Ur Random Creatinine U Random Total Protein Ur Random Calcium Urine Creatinine Protein/Creatinin Ratio Calcium/Creat Ratio U Protein EP PDF Urine Total Protein Urine Albumin (PEP) Urine Albumin U [id number]-[id number] U [id number]-[id number] U Beta Globulin U Gamma Globulin U Random M-[place] (%) U Free [place] Light Ch U Free Lambda Light Ch U Free [place]/Lambda U Abnormal Prot Band 1 U Abnormal Prot Band 2 U Abnormal Prot Band 3 Urine PEP Interpret Urine PEP Note IgG IgA IgM Influenza A (RT-PCR) Negative Influenza B (RT-PCR) Negative RSV (RT-PCR) Negative SARS-CoV-2 RNA (RT-PCR) Negative 10/16/25 10/16/25 10/16/25 05:13 05:13 05:13 Sodium Potassium Chloride Carbon Dioxide Anion Gap POC Capillary Glucose Ammonia Vitamin B12 Folate TSH (Reflex) Ur Random Creatinine Cancelled Cancelled U Random Total Protein Cancelled Ur Random Calcium Cancelled Urine Creatinine 99.2 Protein/Creatinin Ratio Cancelled Calcium/Creat Ratio Cancelled U Protein EP PDF Cancelled Urine Total Protein Cancelled Urine Albumin (PEP) Cancelled Urine Albumin Cancelled U Kknpo-2-Murtplpj Cancelled Cancelled U Giktj-2-[id number] Cancelled U Beta Globulin U Gamma Globulin U Random M-[place] (%) U Free [place] Light Ch U Free Lambda Light Ch U Free [place]/Lambda U Abnormal Prot Band 1 U Abnormal Prot Band 2 U Abnormal Prot Band 3 Urine PEP Interpret Urine PEP Note IgG IgA IgM Influenza A (RT-PCR) Influenza B (RT-PCR) RSV (RT-PCR) SARS-CoV-2 RNA (RT-PCR) 10/16/25 10/16/25 10/16/25 05:13 05:13 05:13 Sodium Potassium Chloride Carbon Dioxide Anion Gap POC Capillary Glucose Ammonia Vitamin B12 Folate TSH (Reflex) Ur Random Creatinine U Random Total Protein Ur Random Calcium Urine Creatinine Protein/Creatinin Ratio Calcium/Creat Ratio U Protein EP PDF Urine Total Protein Urine Albumin (PEP) Urine Albumin U Tmanv-2-[id number] U [id number]-[id number] Cancelled U Beta Globulin Cancelled Cancelled U Gamma Globulin Cancelled Cancelled U Random M-[place] (%) Cancelled U Free [place] Light Ch Cancelled U Free Lambda Light Ch Cancelled U Free [place]/Lambda Cancelled U Abnormal Prot Band 1 Cancelled U Abnormal Prot Band 2 Cancelled U Abnormal Prot Band 3 Cancelled Urine PEP Interpret Cancelled Urine PEP Note Cancelled IgG IgA IgM Influenza A (RT-PCR) Influenza B (RT-PCR) RSV (RT-PCR) SARS-CoV-2 RNA (RT-PCR) 10/16/25 10/16/25 05:57 06:23 Sodium 137 Potassium 3.8 Chloride 108 H Carbon Dioxide 24 Anion Gap 5 POC Capillary Glucose 113 H Ammonia < 9 L Vitamin B12 692.0 Folate 11.8 TSH (Reflex) 1.640 Ur Random Creatinine U Random Total Protein Ur Random Calcium Urine Creatinine Protein/Creatinin Ratio Calcium/Creat Ratio U Protein EP PDF Urine Total Protein Urine Albumin (PEP) Urine Albumin U Ynoiw-5-Mkhoqdci U Yfbwb-8-Uqkdqnhn U Beta Globulin U Gamma Globulin U Random M-[place] (%) U Free [place] Light Ch U Free Lambda Light Ch U Free [place]/Lambda U Abnormal Prot Band 1 U Abnormal Prot Band 2 U Abnormal Prot Band 3 Urine PEP Interpret Urine PEP Note IgG 797 IgA 149 IgM 297 H Influenza A (RT-PCR) Influenza B (RT-PCR) RSV (RT-PCR) SARS-CoV-2 RNA (RT-PCR) Quality VTE Prophylaxis VTE prophylaxis: mechanical ordered
[2025-10-16 09:36] LABS: Hematocrit 34.0 % (42.0-52.0); Hemoglobin 10.9 g/dL (14.0-18.0); Mean Corpuscular HGB Conc 32.1 g/dl (32-36); Mean Corpuscular Hemoglobin 26.7 pg (26-34); Mean Corpuscular Volume 83.1 fl (80-100); Platelet Count Result 191 k/mm3 (150-375); Red Blood Count 4.09 M/mm3 (4.6-6.20); White Blood Count 7.7 K/mm3 (4.5-10.0)
[2025-10-16 09:42] LABS: Alanine Aminotransferase 16 U/L (6-50); Albumin Level 3.9 g/dL (3.5-5.1); Alkaline Phosphatase 95 U/L (38-126); Aspartate Amino Transferase 21 U/L (17-59); Bilirubin,Total 0.3 mg/dL (0.2-1.3); Blood Urea Nitrogen 16 mg/dL (9-20); Calcium 9.2 mg/dL (8.4-10.2); Estimated CRCL calculation 82 ml/min; Estimated Glomerular Filt Rate > 60; Glucose 112 mg/dL (65-110); Total Protein 6.9 g/dL (6.3-8.2)
--- NOTE | 2025-10-16 10:19 | PCSTNOTE ---
Communication evaluation completed for cognition. Recommend continued ST in either outpatient or home health setting.
[2025-10-16] MEDS: PREGABALIN (*CRX) 50 MG CAPSULE 200 MG PO (14:40)
[2025-10-16] MEDS: busPIRone HCL 2.5 MG TABLET PO (16:05)
[2025-10-16] MEDS: ACETAMINOPHEN 325 MG TABLET 650 MG PO (18:41)
[2025-10-16] MEDS: chlordiazePOXIDE (*CRX) 25 MG CAPSULE PO (18:42)
[2025-10-16] MEDS: AMITRIPTYLINE HCL 25 MG TABLET PO (21:22)
[2025-10-16] MEDS: PANTOPRAZOLE 40 MG TABLET PO (21:22)
[2025-10-17] VITALS (7 sets, daily range): BP systolic 109–140; BP diastolic 66–95; PULSE 65–105; RESP 16–18; TEMP 36.3–36.5; O2SAT 97–99
[2025-10-17] MEDS: diazePAM INJ (*CRX) 10 MG/2 ML SYRINGE 5 MG IV PUSH ×2 (00:14→18:34)
[2025-10-17] MEDS: ACETAMINOPHEN 325 MG TABLET 650 MG PO (02:51)
[2025-10-17] MEDS: chlordiazePOXIDE (*CRX) 25 MG CAPSULE PO ×2 (02:51→18:39)
[2025-10-17] MEDS: PREGABALIN (*CRX) 50 MG CAPSULE 200 MG PO ×2 (03:11→14:30)
[2025-10-17 05:38] LABS: Calcium, Urine 18.7 mg/dL (Not Estab.)
[2025-10-17] MEDS: LEVOTHYROXINE SODIUM 50 MCG TABLET PO (05:53)
[2025-10-17] MEDS: THIAMINE 500 MG/NS 100 ML 500 MG/100 ML BAG 200 MG IVPB (05:53)
[2025-10-17 06:20] LABS: Hematocrit 35.1 % (42.0-52.0); Hemoglobin 11.2 g/dL (14.0-18.0); Immature Granulocyte Percent A 0.3 % (0-0.5); Lymphocytes Absolute Auto 2.63 K/mm3 (0.9-3.2); Mean Corpuscular HGB Conc 31.9 g/dl (32-36); Mean Corpuscular Hemoglobin 26.2 pg (26-34); Mean Corpuscular Volume 82.2 fl (80-100); Nucleated Red Blood Cells Absolute Auto 0.000 K/mm3 (0.0-0.012); Nucleated Red Blood Cells Perc 0.0 % (0.0-0.2); Platelet Count Result 197 k/mm3 (150-375); Red Blood Count 4.27 M/mm3 (4.6-6.20); White Blood Count 6.9 K/mm3 (4.5-10.0)
[2025-10-17 06:42] LABS: Alanine Aminotransferase 14 U/L (6-50); Albumin Level 4.1 g/dL (3.5-5.1); Alkaline Phosphatase 97 U/L (38-126); Anion Gap 4 mmol/L (4-12); Aspartate Amino Transferase 23 U/L (17-59); Bilirubin,Total 0.5 mg/dL (0.2-1.3); Blood Urea Nitrogen 16 mg/dL (9-20); Calcium 9.9 mg/dL (8.4-10.2); Carbon Dioxide 27 mmol/L (22-30); Chloride 106 mmol/L (98-107); Estimated CRCL calculation 82 ml/min; Estimated Glomerular Filt Rate > 60; Glucose 109 mg/dL (65-110); Potassium 3.4 mmol/L (3.4-5.0); Sodium 137 mmol/L (137-145); Total Protein 7.2 g/dL (6.3-8.2)
[2025-10-17] MEDS: busPIRone HCL 2.5 MG TABLET PO ×2 (08:26→17:30)
[2025-10-17] MEDS: FOLIC ACID 1 MG TABLET PO (08:26)
[2025-10-17] MEDS: PANTOPRAZOLE 40 MG TABLET PO ×2 (08:26→20:41)
[2025-10-17] MEDS: THERAPEUTIC MULTIVITAMINS/MINERALS TAB (*BKC) 1 TABLET PO (08:26)
[2025-10-17] MEDS: NICOTINE (*PBKC) 14 MG PATCH 1 PATCH TRANSDERM (08:34)
--- NOTE | 2025-10-17 10:30 | PM.IMPN2 ---
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 During the patient last visit he also was negative for ETOH. In the ED a CT scan was preformed- no acute findings Patient has a H history of alcohol and was being treated inpatient. CIWA protocol continued- will monitor for withdrawals, last CIWA 13 this AM, but he was very anxious Continue with PT/OT/ST -ST with recs for outpt or HH continued ST TSH WDL B12 and Folate labs WDL Folic acid and multivitamin PO ordered Thiamine 500 mg IV TID for 2 days and after that 250 IV daily for 5 days Will continue with daily labs Pt A&O x4 today, reports back to his baseline (2) Acute kidney injury: Code(s): N17.9 - Acute kidney failure, unspecified Status: Acute Assessment and Plan: Resolved. Cr baseline is about 1, in the ED pt Cr was 1.4, now WDL BUN baseline appears to be around 10-19, currently back to baseline Continue daily labs (3) Altered mental status: Code(s): R41.82 - Altered mental status, unspecified Status: Acute Assessment and Plan: Likely related to Wernicke-Korsakoff syndrome see above Resolved. (4) Neuropathy: Code(s): G62.9 - Polyneuropathy, unspecified Status: Acute Assessment and Plan: Patient has a history of neuropathy and upon assessment complained about his legs feeling numb Likely related to B12 deficiency and past alcohol abuse Folate and B12 WDL Restarted Lyrica (5) Tobacco abuse: Code(s): Z72.0 - Tobacco use Status: Chronic Assessment and Plan: Smoking cessation education discussed with patient, will rediscussed after patient returns to baseline Nicotine patch applied, increased from 14mg to 21 mg today. Pt with a past smoking hx of 1-2 ppd x30 years (6) Anxiety: Code(s): F41.9 - Anxiety disorder, unspecified Status: Chronic Assessment and Plan: On several medications, continued today s/p ST and med list confirmation with pt and S.O. Jael. Increasingly anxious today, increased nicotine dosage and explained the plan which helped calm him down Plan Pending OT/PT, IV thiamine, daily labs Time Spent With Patient Time with patient: 25 - 35 minutes Subjective Date/time seen: 10/17/25 10:30 Interval history: Pt sitting on his bed anxious upon my arrival. Pt appears to be at his baseline today, A&O x4. He is anxious as to why he needs to stay here, participate in therapy, and cannot go outside to smoke. Treatment plan discussed with the pt and his anxiety clearly decreased. Plan to increase nicotine patch mg, restart hydrocodone today for his CASTRO, and explained the need for thiamine IV doses. Spoke to Jael on the phone and updated her on the pts status. She states that he has been very emotional with his text messages overnight and is wondering if he is in need of a psych consult. I re-assured her that him and I had an extensive conversation this AM and he denies all SI, HI, AH, VH and that he explained to me that he was anxious when he woke up due to a bad dream and took it out on his family and friends via text. Will continue to monitor closely. Review of Systems Review of Systems: All systems reviewed & are unremarkable except as noted in HPI and below ENT: Reports Normal hearing present Neurologic: Reports Normal hearing present Exam Const: General: comfortable and no acute distress HENMT: Face/Nose/Sinus: Normal nares present Mouth: Yes moist mucous membranes Eyes: General: appearance normal, both eyes and all related structures Sclera: sclerae normal Pupils: Equal, round and reactive pupils present Neck: Neck: supple and no JVD Resp: Effort & Inspection: normal respiratory effort Auscultation: clear to auscultation bilaterally Cardio: Rate: regular rate Rhythm: regular rhythm GI: Inspection: non-distended GI Palp: No Tenderness to palpation present (GI) Auscultation: normal bowel sounds Skin: General skin exam: normal color Neuro: General: oriented to person, moves all extremities and Normal light touch and pain sensation Speech: normal speech Motor exam (neuro): Normal motor muscle tone present throughout Sensory Exam: normal sensation Other: A&O x4 Extrem: General: normal to inspection Psych: Mental Status: mental status grossly normal Affect: Anxious affect present Other: Denies SI, HI, AH, VH Objective Data Vital Signs Vital Signs: Vital Signs - 24 hr 10/16/25 12:00 10/16/25 13:21 10/16/25 14:00 Temperature 98.1 F 98.8 F Pulse Rate 72 81 Respiratory Rate 16 16 Blood Pressure 142/93 H 143/96 H Pulse Oximetry 99 100 Oxygen Delivery Room Air 10/16/25 16:00 10/16/25 16:00 10/16/25 20:00 Temperature 96.3 F L Pulse Rate 83 92 Respiratory Rate 16 Blood Pressure 115/72 134/90 Pulse Oximetry 99 Oxygen Delivery 10/16/25 20:00 10/16/25 21:52 10/17/25 00:00 Temperature 98.0 F 97.3 F L Pulse Rate 63 74 Respiratory Rate 18 18 Blood Pressure 134/90 126/90 Pulse Oximetry 97 98 Oxygen Delivery Room Air 10/17/25 00:00 10/17/25 06:00 Temperature 97.7 F Pulse Rate 65 Respiratory Rate 18 Blood Pressure 126/90 109/66 Pulse Oximetry 97 Oxygen Delivery Intake/Output Intake/Output: Intake & Output 10/14/25 10/15/25 10/16/25 10/17/25 23:59 23:59 23:59 23:59 Intake Total 2500 598 730 118 Output Total 0 1010 Balance 2500 -412 730 118 Meds/Results Medications: Active Medications Generic Name Dose Route Start Last Admin Trade Name Freq PRN Reason Stop Dose Admin Acetaminophen 650 mg 10/15/25 03:34 10/17/25 02:51 Acetaminophen 325 Mg Tablet PO 650 mg Q4H PRN Administration Headache Albuterol 1 puff 10/16/25 13:54 Albuterol Sulfate (*Sp) Aerosol 1 Puff INHALATION TIDRT PRN Shortness Of Breath Amitriptyline HCl 25 mg 10/16/25 21:00 10/16/25 21:22 Amitriptyline Hcl 25 Mg Tablet PO 25 mg QHS BRYON Administration Buspirone HCl 2.5 mg 10/16/25 17:00 10/17/25 08:26 Buspirone Hcl 2.5 Mg Tablet PO 2.5 mg BID BRYON Administration Buspirone HCl 5 mg 10/16/25 17:00 10/17/25 08:26 Buspirone Hcl 5 Mg Tablet PO 5 mg BID BRYON Administration Chlordiazepoxide HCl 25 mg 10/15/25 18:07 10/17/25 02:51 Chlordiazepoxide (*Crx) 25 Mg Capsule PO 25 mg Q6H PRN Administration Withdrawal Citalopram Hydrobromide 10 mg 10/17/25 09:00 Citalopram Hydrobromide 10 Mg Tablet PO QAM BRYON Diazepam 5 mg 10/15/25 18:07 10/17/25 00:14 Diazepam Inj (*Crx) 10 Mg/2 Ml Syringe IV PUSH 5 mg BID PRN Administration Withdrawal Duloxetine HCl 30 mg 10/16/25 21:00 10/17/25 08:26 Duloxetine Hcl 30 Mg Capsule.Dr PO 30 mg Q12HR BRYON Administration Folic Acid 1 mg 10/16/25 09:00 10/17/25 08:26 Folic Acid 1 Mg Tablet PO 1 mg DAILY BRYON Administration Thiamine HCl 250 mg/ Sodium 102.5 mls @ 205 mls/hr 10/18/25 09:00 Chloride IVPB 10/22/25 09:29 DAILY BRYON Levothyroxine Sodium 50 mcg 10/17/25 06:30 10/17/25 05:53 Levothyroxine Sodium 50 Mcg Tablet PO 50 mcg DAILY@0630 BRYON Administration Lisinopril 20 mg 10/17/25 09:00 10/17/25 08:26 Lisinopril 20 Mg Tablet PO 20 mg DAILY BRYON Administration Multivitamins/Calcium 1 tablet 10/15/25 11:50 10/17/25 08:26 Therapeutic Multivitamins/Minerals Tab (*Bkc) PO 1 tablet DAILY BRYON Administration Nicotine 1 patch 10/15/25 18:10 10/17/25 08:34 Nicotine (*Pbkc) 14 Mg Patch TRANSDERM 1 patch DAILY BRYON Administration Pantoprazole Sodium 40 mg 10/16/25 21:00 10/17/25 08:26 Pantoprazole 40 Mg Tablet PO 40 mg Q12HR BRYON Administration Polysaccharide Iron Complex 150 mg 10/17/25 12:00 Polysaccharide Iron Complex 150 Mg Capsule PO DAILY@1200 BRYON Pregabalin 200 mg 10/16/25 14:00 10/17/25 03:11 Pregabalin (*Crx) 50 Mg Capsule PO 200 mg Q12H BRYON Administration Radiology Results: ITS Impressions Head CT 10/14/25 18:44 IMPRESSION: 1. Limited noncontrast CT head shows no acute findings. Chest X-Ray 10/15/25 07:50 IMPRESSION: 1. Prominent bibasilar parenchymal markings may represent mild vascular congestion or atypical inflammatory/infectious process. Labs Labs: Laboratory Results - last 24 hr 10/16/25 10/17/25 10/17/25 05:13 01:19 05:37 WBC 6.9 RBC 4.27 L Hgb 11.2 L Hct 35.1 L MCV 82.2 MCH 26.2 MCHC 31.9 L RDW 17.7 H Plt Count 197 MPV 11.7 H Immature Gran % (Auto) 0.3 Neut % (Auto) 48.9 Lymph % (Auto) 38.3 [place] % (Auto) 9.6 H Eos % (Auto) 2.2 Baso % (Auto) 0.7 Lymph # (Auto) 2.63 [place] # (Auto) 0.7 H Eos # (Auto) 0.2 Baso # (Auto) 0.1 Abs Immat Gran (auto) 0.02 Absolute Neuts (auto) 3.4 Absolute Nucleated RBC 0.000 Nucleated RBC % 0.0 Sodium 137 Potassium 3.4 Chloride 106 Carbon Dioxide 27 Anion Gap 4 BUN 16 Creatinine 0.95 Estim Creat Clear Calc 82 Estimated GFR > 60 Glucose 109 POC Capillary Glucose 101 Calcium 9.9 Total Bilirubin 0.5 AST 23 ALT 14 Alkaline Phosphatase 97 Total Protein 7.2 Albumin 4.1 Ur Random Creatinine 95.5 Urine Calcium 18.7 Calcium/Creat Ratio 196 10/17/25 06:45 WBC RBC Hgb Hct MCV MCH MCHC RDW Plt Count MPV Immature Gran % (Auto) Neut % (Auto) Lymph % (Auto) [place] % (Auto) Eos % (Auto) Baso % (Auto) Lymph # (Auto) [place] # (Auto) Eos # (Auto) Baso # (Auto) Abs Immat Gran (auto) Absolute Neuts (auto) Absolute Nucleated RBC Nucleated RBC % Sodium Potassium Chloride Carbon Dioxide Anion Gap BUN Creatinine Estim Creat Clear Calc Estimated GFR Glucose POC Capillary Glucose 121 H Calcium Total Bilirubin AST ALT Alkaline Phosphatase Total Protein Albumin Ur Random Creatinine Urine Calcium Calcium/Creat Ratio Quality VTE Prophylaxis VTE prophylaxis: mechanical ordered
[2025-10-17] MEDS: HYDROcodone/acetaminophen (*CRX) 5-325 MG TABLET 1 TAB PO ×2 (11:28→23:02)
[2025-10-17] MEDS: CITALOPRAM HYDROBROMIDE 10 MG TABLET PO (11:30)
--- NOTE | 2025-10-17 19:31 | PC.NURSE ---
Notified Yenni of iv out, after placing 3 iv's today. ok to keep out tonight.
[2025-10-17] MEDS: AMITRIPTYLINE HCL 25 MG TABLET PO (20:41)
[2025-10-18] MEDS: chlordiazePOXIDE (*CRX) 25 MG CAPSULE PO ×3 (00:53→21:04)
[2025-10-18] MEDS: PREGABALIN (*CRX) 50 MG CAPSULE 200 MG PO ×2 (01:00→13:40)
[2025-10-18] MEDS: HYDROcodone/acetaminophen (*CRX) 5-325 MG TABLET 1 TAB PO ×3 (05:20→23:29)
[2025-10-18] MEDS: LEVOTHYROXINE SODIUM 50 MCG TABLET PO (05:20)
[2025-10-18 05:52] VITALS: BP 118/75; PULSE 65; RESP 18; TEMP 36.3; O2SAT 98
[2025-10-18 05:53] LABS: Hematocrit 37.2 % (42.0-52.0); Hemoglobin 11.8 g/dL (14.0-18.0); Immature Granulocyte Percent A 0.3 % (0-0.5); Lymphocytes Absolute Auto 2.64 K/mm3 (0.9-3.2); Mean Corpuscular HGB Conc 31.7 g/dl (32-36); Mean Corpuscular Hemoglobin 26.3 pg (26-34); Mean Corpuscular Volume 83.0 fl (80-100); Nucleated Red Blood Cells Absolute Auto 0.000 K/mm3 (0.0-0.012); Nucleated Red Blood Cells Perc 0.0 % (0.0-0.2); Platelet Count Result 229 k/mm3 (150-375); Red Blood Count 4.48 M/mm3 (4.6-6.20); White Blood Count 7.8 K/mm3 (4.5-10.0)
[2025-10-18 06:12] LABS: Alanine Aminotransferase 14 U/L (6-50); Albumin Level 4.1 g/dL (3.5-5.1); Alkaline Phosphatase 98 U/L (38-126); Anion Gap 4 mmol/L (4-12); Aspartate Amino Transferase 24 U/L (17-59); Bilirubin,Total 0.4 mg/dL (0.2-1.3); Blood Urea Nitrogen 21 mg/dL (9-20); Calcium 9.6 mg/dL (8.4-10.2); Carbon Dioxide 28 mmol/L (22-30); Chloride 104 mmol/L (98-107); Estimated CRCL calculation 82 ml/min; Estimated Glomerular Filt Rate > 60; Glucose 98 mg/dL (65-110); Potassium 3.7 mmol/L (3.4-5.0); Sodium 136 mmol/L (137-145); Total Protein 7.4 g/dL (6.3-8.2)
--- NOTE | 2025-10-18 08:09 | PM.IMPN2 ---
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 During the patient last visit he also was negative for ETOH. In the ED a CT scan was preformed- no acute findings Patient has a H history of alcohol and was being treated inpatient. CINV protocol continued- will monitor for withdrawals, last CIWA 13 this AM, but he was very anxious Continue with PT/OT/ST -ST with recs for outpt or HH continued ST TSH WDL B12 and Folate labs WDL Folic acid and multivitamin PO ordered Thiamine 500 mg IV TID for 2 days and after that 250 IV daily for 5 days Will continue with daily labs Pt A&O x4 today, reports back to his baseline (2) Acute kidney injury: Code(s): N17.9 - Acute kidney failure, unspecified Status: Acute Assessment and Plan: Resolved. Cr baseline is about 1, in the ED pt Cr was 1.4, now WDL BUN baseline appears to be around 10-19, currently back to baseline Continue daily labs (3) Altered mental status: Code(s): R41.82 - Altered mental status, unspecified Status: Acute Assessment and Plan: Likely related to Wernicke-Korsakoff syndrome see above Resolved. (4) Neuropathy: Code(s): G62.9 - Polyneuropathy, unspecified Status: Acute Assessment and Plan: Patient has a history of neuropathy and upon assessment complained about his legs feeling numb Likely related to B12 deficiency and past alcohol abuse Folate and B12 WDL Restarted Lyrica (5) Tobacco abuse: Code(s): Z72.0 - Tobacco use Status: Chronic Assessment and Plan: Smoking cessation education discussed with patient, will rediscussed after patient returns to baseline Nicotine patch applied, increased from 14mg to 21 mg 10/17. Pt with a past smoking hx of 1-2 ppd x30 years (6) Anxiety: Code(s): F41.9 - Anxiety disorder, unspecified Status: Chronic Assessment and Plan: On several medications, continued today s/p ST and med list confirmation with pt and S.O. Jael. Pt not anxious today, returned to baseline Plan IV thiamine, daily labs, neuro status checks Medical Record Review I have reviewed the following patient records and this information was taken into consideration when formulating the assessment and plan.: previous labs, previous ER visits, previous hospitalizations and previous clinic visits Time Spent With Patient Time with patient: 25 - 35 minutes Subjective Date/time seen: 10/18/25 1023 Interval history: Pt sitting up on his bed upon arrival to the room.. Pt with no complaints today but would like to continue with PT. Explained to him that he was discharged from therapy and that he could continue with the exercises he was given from them and that PT would give him some TheraBand today to help. Pt has seen Dr. Knowles in the past for his Wernicke's syndrome. Per Jael his S.O., while at PCP last week, wanting pt to be worked up for MS so in the process for finding a neurologist who specializes in this. Review of Systems Review of Systems: All systems reviewed & are unremarkable except as noted in HPI and below ENT: Reports Normal hearing present Neurologic: Reports Normal hearing present Exam Const: General: comfortable and no acute distress HENMT: Face/Nose/Sinus: Normal nares present Mouth: Yes moist mucous membranes Eyes: General: appearance normal, both eyes and all related structures Sclera: sclerae normal Pupils: Equal, round and reactive pupils present Neck: Neck: supple and no JVD Resp: Effort & Inspection: normal respiratory effort Auscultation: clear to auscultation bilaterally Cardio: Rate: regular rate Rhythm: regular rhythm GI: Inspection: non-distended GI Palp: No Tenderness to palpation present (GI) Auscultation: normal bowel sounds Skin: General skin exam: normal color Neuro: General: oriented to person, moves all extremities and Normal light touch and pain sensation Speech: normal speech Motor exam (neuro): Normal motor muscle tone present throughout Sensory Exam: normal sensation Other: A&O x4 Extrem: General: normal to inspection Psych: Mental Status: mental status grossly normal Affect: normal affect Other: Denies SI, HI, AH, VH Objective Data Vital Signs Vital Signs: Vital Signs - 24 hr 10/17/25 14:00 10/17/25 16:23 10/17/25 20:00 Temperature 97.4 F L 97.5 F L Pulse Rate 83 105 H Respiratory Rate 16 18 Blood Pressure 121/78 121/78 140/95 H Pulse Oximetry 98 99 10/17/25 21:57 10/18/25 05:52 Temperature 97.5 F L 97.3 F L Pulse Rate 105 H 65 Respiratory Rate 18 18 Blood Pressure 140/95 H 118/75 Pulse Oximetry 99 98 Intake/Output Intake/Output: Intake & Output 10/15/25 10/16/25 10/17/25 10/18/25 23:59 23:59 23:59 23:59 Intake Total 598 730 580 750 Output Total 1010 Balance -412 730 580 750 Meds/Results Medications: Active Medications Generic Name Dose Route Start Last Admin Trade Name Freq PRN Reason Stop Dose Admin Acetaminophen 650 mg 10/15/25 03:34 10/17/25 02:51 Acetaminophen 325 Mg Tablet PO 650 mg Q4H PRN Administration Headache Hydrocodone Bitart/Acetaminophen 1 tab 10/17/25 13:54 10/18/25 05:20 Hydrocodone/Acetaminophen (*Crx) 5-325 Mg Tablet PO 1 tab Q6H PRN Administration Pain Albuterol 1 puff 10/16/25 13:54 Albuterol Sulfate (*Sp) Aerosol 1 Puff INHALATION TIDRT PRN Shortness Of Breath Amitriptyline HCl 25 mg 10/16/25 21:00 10/17/25 20:41 Amitriptyline Hcl 25 Mg Tablet PO 25 mg QHS BRYON Administration Buspirone HCl 2.5 mg 10/16/25 17:00 10/17/25 17:30 Buspirone Hcl 2.5 Mg Tablet PO 2.5 mg BID BRYON Administration Buspirone HCl 5 mg 10/16/25 17:00 10/17/25 17:30 Buspirone Hcl 5 Mg Tablet PO 5 mg BID BRYON Administration Chlordiazepoxide HCl 25 mg 10/15/25 18:07 10/18/25 00:53 Chlordiazepoxide (*Crx) 25 Mg Capsule PO 25 mg Q6H PRN Administration Withdrawal Citalopram Hydrobromide 10 mg 10/17/25 09:00 10/17/25 11:30 Citalopram Hydrobromide 10 Mg Tablet PO 10 mg QAM BRYON Administration Diazepam 5 mg 10/15/25 18:07 10/17/25 18:34 Diazepam Inj (*Crx) 10 Mg/2 Ml Syringe IV PUSH 5 mg BID PRN Administration Withdrawal Duloxetine HCl 30 mg 10/16/25 21:00 10/17/25 20:40 Duloxetine Hcl 30 Mg Capsule.Dr PO 30 mg Q12HR BRYON Administration Folic Acid 1 mg 10/16/25 09:00 10/17/25 08:26 Folic Acid 1 Mg Tablet PO 1 mg DAILY BRYON Administration Thiamine HCl 250 mg/ Sodium 102.5 mls @ 205 mls/hr 10/18/25 09:00 Chloride IVPB 10/22/25 09:29 DAILY BRYON Levothyroxine Sodium 50 mcg 10/17/25 06:30 10/18/25 05:20 Levothyroxine Sodium 50 Mcg Tablet PO 50 mcg DAILY@0630 BRYON Administration Lisinopril 20 mg 10/17/25 09:00 10/17/25 08:26 Lisinopril 20 Mg Tablet PO 20 mg DAILY BRYON Administration Multivitamins/Calcium 1 tablet 10/15/25 11:50 10/17/25 08:26 Therapeutic Multivitamins/Minerals Tab (*Bkc) PO 1 tablet DAILY BRYON Administration Nicotine 1 patch 10/18/25 09:00 Nicotine (*Pbkc) 21 Mg Patch TRANSDERM DAILY BRYON Pantoprazole Sodium 40 mg 10/16/25 21:00 10/17/25 20:41 Pantoprazole 40 Mg Tablet PO 40 mg Q12HR BRYON Administration Polysaccharide Iron Complex 150 mg 10/17/25 12:00 10/17/25 11:30 Polysaccharide Iron Complex 150 Mg Capsule PO 150 mg DAILY@1200 BRYON Administration Pregabalin 200 mg 10/16/25 14:00 10/18/25 01:00 Pregabalin (*Crx) 50 Mg Capsule PO 200 mg Q12H BRYON Administration Radiology Results: ITS Impressions Head CT 10/14/25 18:44 IMPRESSION: 1. Limited noncontrast CT head shows no acute findings. Chest X-Ray 10/15/25 07:50 IMPRESSION: 1. Prominent bibasilar parenchymal markings may represent mild vascular congestion or atypical inflammatory/infectious process. Labs Labs: Laboratory Results - last 24 hr 10/18/25 04:58 WBC 7.8 RBC 4.48 L Hgb 11.8 L Hct 37.2 L MCV 83.0 MCH 26.3 MCHC 31.7 L RDW 17.5 H Plt Count 229 MPV 11.7 H Immature Gran % (Auto) 0.3 Neut % (Auto) 55.0 Lymph % (Auto) 33.8 [place] % (Auto) 8.3 Eos % (Auto) 1.8 Baso % (Auto) 0.8 Lymph # (Auto) 2.64 [place] # (Auto) 0.7 H Eos # (Auto) 0.1 Baso # (Auto) 0.1 Abs Immat Gran (auto) 0.02 Absolute Neuts (auto) 4.3 Absolute Nucleated RBC 0.000 Nucleated RBC % 0.0 Sodium 136 L Potassium 3.7 Chloride 104 Carbon Dioxide 28 Anion Gap 4 BUN 21 H Creatinine 0.95 Estim Creat Clear Calc 82 Estimated GFR > 60 Glucose 98 Calcium 9.6 Total Bilirubin 0.4 AST 24 ALT 14 Alkaline Phosphatase 98 Total Protein 7.4 Albumin 4.1 Quality VTE Prophylaxis VTE prophylaxis: mechanical ordered
[2025-10-18] MEDS: FOLIC ACID 1 MG TABLET PO (08:12)
[2025-10-18] MEDS: NICOTINE (*PBKC) 21 MG PATCH 1 PATCH TRANSDERM (08:12)
[2025-10-18] MEDS: THERAPEUTIC MULTIVITAMINS/MINERALS TAB (*BKC) 1 TABLET PO (08:12)
[2025-10-18] MEDS: CITALOPRAM HYDROBROMIDE 10 MG TABLET PO (08:12)
[2025-10-18] MEDS: busPIRone HCL 2.5 MG TABLET PO ×2 (08:12→17:37)
[2025-10-18] MEDS: PANTOPRAZOLE 40 MG TABLET PO ×2 (08:12→21:05)
[2025-10-18] MEDS: diazePAM INJ (*CRX) 10 MG/2 ML SYRINGE 5 MG IV PUSH (13:43)
[2025-10-18 14:00] VITALS: BP 121/88; PULSE 87; RESP 20; TEMP 36.2; O2SAT 100
--- NOTE | 2025-10-18 15:40 | PCSTNOTE ---
12/15 Attempted to see at bedside, being seen for testing.
--- NOTE | 2025-10-18 18:31 | WPDNEURCNPN ---
Assessment and Plan Assessment and plan (1) Altered mental status: Code(s): R41.82 - Altered mental status, unspecified Status: Acute (2) Peripheral neuropathy: Code(s): G62.9 - Polyneuropathy, unspecified Status: Acute (3) Ataxia: Code(s): R27.0 - Ataxia, unspecified Status: Chronic (4) Alcohol abuse: Code(s): F10.10 - Alcohol abuse, uncomplicated Status: Resolved (5) Wernicke-Korsakoff syndrome (alcoholic): Code(s): F10.96 - Alcohol use, unspecified with alcohol-induced persisting amnestic disorder Status: Acute Plan I reviewed the current available data including CT scan of brain and previous MRI the brain which did not show any significant abnormality. Change in mental status such as he describes does raise possibility of has a possibility of seizures but he has not had any witnessed seizures another he states that he was confused for several days and now he is back to normal. I suggest an EEG. He has seen me in my office and I shall be glad to follow him up once again. He denies abuse any drugs other than marijuana. Early on when I saw him he has had a blood work done including immunofixation, B1, B6, B12 and folate and these all within normal limits. He does state that he does not drink alcohol anymore since March of 2025. He should continue with the rehab g and I shall be glad to see him for follow-up in my office. Consult date: 10/18/25 HPI: Tyree Rodriguez is a 50 year old male With history of alcoholism admitted to the hospital with the episode of confusion. The patient states that for several days he could not recognize his family members and he did not know why. He has been in the rehab for alcohol abuse. He states that he has not been drinking since the March of 2025. He has an MRI of the brain done on 06/07/2025 did not show any significant abnormality. Also had MRI of the cervical lumbosacral spine and a thoracic spine the results of which were reviewed. I saw him in my office and he also has had a EMG nerve can study on 09/09/2025 which shows evidence of mild peripheral neuropathy. There is also findings suggest residual finding from a lumbosacral radiculopathy particular L5-S1. Patient has history of surgery in the lumbar spine. Patient does smoke. He has had history of ataxia for which I had evaluated him and he states that his balance in fact has improved. History concerned about why he had the change in mental status. There is no history of seizure in the past. Review of Systems Review of Systems: All systems reviewed & are unremarkable except as noted in HPI and below PMFSH Past Medical History Medical History Peripheral neuropathy Chronic alcoholic liver disease Rectal bleeding Secondary to rectal ulcer Peripheral neuropathy Alcohol withdrawal syndrome Neuropathy Chronic hyponatremia Hepatic steatosis Noted on CT scan 06/2022 Tobacco abuse Hypertension Asthma Anxiety Surgical History Surgical History H/O knee surgery H/O spinal fusion Family History Family History Other Family history non-contributory Social History Social History Social History: The patient lives with his significant other. He has 2 daughters. He has smoked 1 pack per day since he was a teenager. He has a history of heavy alcohol use drinking up to 1 5th of vodka every other day with recent decrease in alcohol consumption down to 2-3 beers a day on weekdays and 10 beers a day on weekends. 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 The patient smokes marijuana nightly. Code status: Full code Smoking packs per day: 2 Smoking cigarettes per day: 40.0 Years smoked: 30 Smoking pack-years: 60.00 Smoking status: Current every day smoker Tobacco type: cigarettes Second hand tobacco smoke exposure: Yes Alcohol intake: current Drinks per week: 20 Alcohol use details: social Substance use: current Substance use type: marijuana Last use: 10/14/2025 Lack of Transportation: No Lack of Food: Never True Current Housing: I Have Housing Concerned About Future Housing: No Difficulty Paying Gas/Electric Bills: No Difficulty Paying for Meds: No Currently Unemployed: No Education: Trade/Vocational Certificate Difficulty w/ Childcare or Family Care: No Living arrangements: with family Gender identity (if verbalized by the patient): Male Spiritual care concerns: No Meds Home Medications and Allergies Home Medications ?Medication ?Instructions ?Recorded ?Confirmed ?Type albuterol 90 mcg/actuation aerosol 90 mcg inhalation TID PRN 06/12/22 10/15/25 History inhaler Shortness Of Breath lisinopril 20 mg tablet 20 mg PO DAILY 07/23/24 10/15/25 History hydrocodone 5 mg-acetaminophen 325 1 tablet PO Q8H PRN pain #7 tabs 02/22/25 10/15/25 Rx mg tablet folic acid 1 mg tablet 1 mg PO DAILY 03/30/25 10/15/25 History levothyroxine 50 mcg tablet 50 mcg PO DAILY 03/30/25 10/15/25 History bisacodyl 5 mg tablet,delayed 5 mg PO QAM 30 days #30 tabs 04/21/25 10/15/25 Rx release (Laxative (bisacodyl)) citalopram 20 mg tablet (Celexa) 10 mg (1/2 x 20 mg) PO QAM 30 days 04/21/25 10/15/25 Rx #15 tabs duloxetine 30 mg capsule,delayed 30 mg PO Q12HR 30 days #60 caps 04/21/25 10/15/25 Rx release (Cymbalta) multivitamin 1 tablet PO DAILY #30 tabs 04/21/25 10/15/25 Rx thiamine HCl (vitamin B1) 100 mg 100 mg PO QAM 30 days #30 tabs 04/21/25 10/15/25 Rx tablet (Vitamin B-1) polysaccharide iron complex 150 mg 150 mg PO DAILY@0800 #30 caps 05/05/25 10/15/25 Rx iron capsule vitamin B complex (Vitamins B 1 cap PO QAM #90 caps 05/05/25 10/15/25 Rx Complex capsule) pregabalin 75 mg capsule (Lyrica) 200 mg PO Q12H 06/05/25 10/15/25 History amitriptyline 25 mg tablet 25 mg PO QHS 07/06/25 10/15/25 History omeprazole 20 mg capsule,delayed 20 mg PO BID #30 caps 08/26/25 10/15/25 Rx release buspirone 7.5 mg tablet 7.5 mg PO BID 10/15/25 10/15/25 History Allergies Allergy/AdvReac Type Severity Reaction Status Date / Time tramadol AdvReac Intermediate Agitated Verified 10/15/25 02:09 vancomycin AdvReac Unknown tingling Verified 10/15/25 02:09 Vital Signs Vital Signs - 24 hr 10/17/25 20:00 10/17/25 21:57 10/18/25 05:52 Temperature 97.5 F L 97.5 F L 97.3 F L Pulse Rate 105 H 105 H 65 Respiratory Rate 18 18 18 Blood Pressure 140/95 H 140/95 H 118/75 Pulse Oximetry 99 99 98 10/18/25 14:00 Temperature 97.2 F L Pulse Rate 87 Respiratory Rate 20 Blood Pressure 121/88 Pulse Oximetry 100 Exam Const: General: cooperative, healthy appearing and comfortable HENMT: Head: atraumatic Mouth: Yes oropharynx normal Eyes: Alignment and Position: alignment normal and position normal EOM: EOMs intact bilaterally Neck: Neck: normal visual inspection and supple Resp: Effort & Inspection: normal respiratory effort Cardio: Heart sounds: S1 normal heart sound present and S2 normal heart sound present Skin: General skin exam: normal color Neuro: Cranial nerves: Yes CN's II-XII intact bilaterally, Yes facial symmetry and Yes Midline tongue present Cognition (Neuro): normal cognition Speech: normal speech Gait exam (Neuro): Normal gait present Sensory Exam: normal sensation Coordination: [id number] test normal and Normal rapid alternating movements of the distal upper extremity present (Neuro) Extrem: General: normal to inspection Psych: Appearance: well kempt Mental Status: mental status grossly normal Speech and movement: Normal speech and movement present Affect: normal affect Thought process: Normal thought process present Thought content: Yes Normal thought content present Insight: Good insight present (Psych) Judgement: Good judgement present (Psych) Results Labs 10/18/25 04:58 10/18/25 04:58 Labs: Short CBC 10/18/25 Range/Units 04:58 WBC 7.8 (4.5-10.0) K/mm3 Hgb 11.8 L (14.0-18.0) g/dL Hct 37.2 L (42.0-52.0) % Plt Count 229 (150-375) k/mm3 BMP 10/18/25 04:58 Sodium 136 L Potassium 3.7 Chloride 104 Carbon Dioxide 28 BUN 21 H Creatinine 0.95 Glucose 98 Calcium 9.6 Liver Function 10/18/25 Range/Units 04:58 Total Bilirubin 0.4 (0.2-1.3) mg/dL AST 24 (17-59) U/L ALT 14 (6-50) U/L Alkaline Phosphatase 98 (38-126) U/L Albumin 4.1 (3.5-5.1) g/dL
[2025-10-18] MEDS: AMITRIPTYLINE HCL 25 MG TABLET PO (21:05)
[2025-10-18 22:00] VITALS: BP 129/93; PULSE 89; RESP 20; TEMP 37; O2SAT 97
[2025-10-19] MEDS: diazePAM INJ (*CRX) 10 MG/2 ML SYRINGE 5 MG IV PUSH ×2 (00:24→11:35)
[2025-10-19] MEDS: PREGABALIN (*CRX) 50 MG CAPSULE 200 MG PO ×3 (02:16→21:22)
[2025-10-19 06:00] VITALS: BP 110/80; PULSE 67; RESP 20; TEMP 36.4; O2SAT 99
[2025-10-19 06:04] LABS: Hematocrit 35.9 % (42.0-52.0); Hemoglobin 11.3 g/dL (14.0-18.0); Immature Granulocyte Percent A 0.3 % (0-0.5); Lymphocytes Absolute Auto 2.50 K/mm3 (0.9-3.2); Mean Corpuscular HGB Conc 31.5 g/dl (32-36); Mean Corpuscular Hemoglobin 26.5 pg (26-34); Mean Corpuscular Volume 84.1 fl (80-100); Nucleated Red Blood Cells Absolute Auto 0.000 K/mm3 (0.0-0.012); Nucleated Red Blood Cells Perc 0.0 % (0.0-0.2); Platelet Count Result 216 k/mm3 (150-375); Red Blood Count 4.27 M/mm3 (4.6-6.20); White Blood Count 6.8 K/mm3 (4.5-10.0)
[2025-10-19 06:37] LABS: Alanine Aminotransferase 14 U/L (6-50); Albumin Level 3.9 g/dL (3.5-5.1); Alkaline Phosphatase 98 U/L (38-126); Anion Gap 6 mmol/L (4-12); Aspartate Amino Transferase 23 U/L (17-59); Bilirubin,Total 0.4 mg/dL (0.2-1.3); Blood Urea Nitrogen 20 mg/dL (9-20); Calcium 9.3 mg/dL (8.4-10.2); Carbon Dioxide 27 mmol/L (22-30); Chloride 103 mmol/L (98-107); Estimated CRCL calculation 88 ml/min; Estimated Glomerular Filt Rate > 60; Glucose 95 mg/dL (65-110); Potassium 3.8 mmol/L (3.4-5.0); Sodium 136 mmol/L (137-145); Total Protein 6.8 g/dL (6.3-8.2)
[2025-10-19] MEDS: LEVOTHYROXINE SODIUM 50 MCG TABLET PO (06:51)
[2025-10-19] MEDS: FOLIC ACID 1 MG TABLET PO (10:02)
[2025-10-19] MEDS: busPIRone HCL 2.5 MG TABLET PO (10:02)
[2025-10-19] MEDS: HYDROcodone/acetaminophen (*CRX) 5-325 MG TABLET 1 TAB PO (10:04)
[2025-10-19] MEDS: NICOTINE (*PBKC) 21 MG PATCH 1 PATCH TRANSDERM (10:05)
[2025-10-19] MEDS: THERAPEUTIC MULTIVITAMINS/MINERALS TAB (*BKC) 1 TABLET PO (10:06)
[2025-10-19] MEDS: CITALOPRAM HYDROBROMIDE 10 MG TABLET PO (10:06)
[2025-10-19] MEDS: PANTOPRAZOLE 40 MG TABLET PO ×2 (10:07→21:23)
--- NOTE | 2025-10-19 11:44 | P.NEURO_ITS ---
Neurology EEG Report General Information Date of Study: 10/18/25 TEST EEG DIAGNOSIS Altered mental status. CONDITION OF RECORDING Awake, drowsy and asleep. EEG NUMBER [id number] CLINICAL HISTORY 50 years old male is having weakness and confusion. Patient states he is forgetting who people are and football fax she typically knows. Patient states he keeps getting a terrible headache as well. EEG DESCRIPTION Basic resting occipital frequency consists of low voltage 8 to 10 hertz per 2nd alpha admixed with low-voltage 15 to 18 hertz per 2nd beta activity. Low- voltage beta activity seen diffusely during drowsiness. Bilateral symmetrical sleep activity is noted during sleep with symmetrical sleep spindles but also multiple movement artifacts. Photic stimulation produced poor Drive. Hyperventilation not done. Non paroxysmal. Nonfocal. Nonlateralizing. IMPRESSION No significant abnormalities noted particularly there is no evidence of paroxysmal activity or as asymmetry of the background rhythm. Clinical correlation recommended.
--- NOTE | 2025-10-19 13:20 | PM.IMPN2 ---
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 During the patient last visit he also was negative for ETOH. In the ED a CT scan was preformed- no acute findings Patient has a PMH history of alcohol and was being treated inpatient. CIWA protocol continued- will monitor for withdrawals, last CIWA 13 this AM, but he was very anxious Discharged from PT/OT/ST -ST with recs for outpt or HH continued ST TSH WDL B12 and Folate labs WDL Folic acid and multivitamin PO ordered Thiamine 500 mg IV TID for 2 days and after that 250 IV daily for 5 days Will continue with daily labs Pt A&O x4 today, reports back to his baseline Pending EEG, seems as if neuro has signed off, happy to see them outpt as he is an estblished pt (2) Acute kidney injury: Code(s): N17.9 - Acute kidney failure, unspecified Status: Acute Assessment and Plan: Resolved. Cr baseline is about 1, in the ED pt Cr was 1.4, now WDL BUN baseline appears to be around 10-19, currently back to baseline Continue daily labs (3) Altered mental status: Code(s): R41.82 - Altered mental status, unspecified Status: Acute Assessment and Plan: Likely related to Wernicke-Korsakoff syndrome see above Resolved. (4) Neuropathy: Code(s): G62.9 - Polyneuropathy, unspecified Status: Acute Assessment and Plan: Patient has a history of neuropathy and upon assessment complained about his legs feeling numb Likely related to B12 deficiency and past alcohol abuse Folate and B12 WDL Restarted Lyrica (5) Tobacco abuse: Code(s): Z72.0 - Tobacco use Status: Chronic Assessment and Plan: Smoking cessation education discussed with patient, will rediscussed after patient returns to baseline Nicotine patch applied, increased from 14mg to 21 mg 10/17. Pt with a past smoking hx of 1-2 ppd x30 years (6) Anxiety: Code(s): F41.9 - Anxiety disorder, unspecified Status: Chronic Assessment and Plan: On several medications, continued today s/p ST and med list confirmation with pt and S.O. Jael. More anxious again today, increasing buspar dosing and frequency. Plan IV thiamine, daily labs, neuro following Medical Record Review I have reviewed the following patient records and this information was taken into consideration when formulating the assessment and plan.: previous labs, previous ER visits, previous hospitalizations and previous clinic visits Time Spent With Patient Time with patient: 25 - 35 minutes Subjective Date/time seen: 10/19/25 0945 Interval history: Pt sitting up on his bed upon arrival to the room.. Pt is more anxious today due to social issues with his ex . Continues to report a CASTRO this AM. Discussed POC to await EEG reports via neuro. Review of Systems Review of Systems: All systems reviewed & are unremarkable except as noted in HPI and below ENT: Reports Normal hearing present Neurologic: Reports Normal hearing present Exam Const: General: comfortable and no acute distress HENMT: Face/Nose/Sinus: Normal nares present Mouth: Yes moist mucous membranes Eyes: General: appearance normal, both eyes and all related structures Sclera: sclerae normal Pupils: Equal, round and reactive pupils present Neck: Neck: supple and no JVD Resp: Effort & Inspection: normal respiratory effort Auscultation: clear to auscultation bilaterally Cardio: Rate: regular rate Rhythm: regular rhythm GI: Inspection: non-distended GI Palp: No Tenderness to palpation present (GI) Auscultation: normal bowel sounds Skin: General skin exam: normal color Neuro: General: oriented to person, moves all extremities and Normal light touch and pain sensation Speech: normal speech Motor exam (neuro): Normal motor muscle tone present throughout Sensory Exam: normal sensation Other: A&O x4 Extrem: General: normal to inspection Psych: Mental Status: mental status grossly normal Affect: normal affect Other: Denies SI, HI, AH, VH Objective Data Vital Signs Vital Signs: Vital Signs - 24 hr 10/18/25 14:00 10/18/25 22:00 10/19/25 06:00 Temperature 97.2 F L 98.6 F 97.6 F Pulse Rate 87 89 67 Respiratory Rate 20 20 20 Blood Pressure 121/88 129/93 H 110/80 Pulse Oximetry 100 97 99 Intake/Output Intake/Output: Intake & Output 10/16/25 10/17/25 10/18/25 10/19/25 23:59 23:59 23:59 23:59 Intake Total 994 914 3815.5 320 Output Total 700 Balance 051 190 0675.5 -380 Meds/Results Medications: Active Medications Generic Name Dose Route Start Last Admin Trade Name Freq PRN Reason Stop Dose Admin Acetaminophen 650 mg 10/15/25 03:34 10/17/25 02:51 Acetaminophen 325 Mg Tablet PO 650 mg Q4H PRN Administration Headache Hydrocodone Bitart/Acetaminophen 1 tab 10/17/25 13:54 10/19/25 10:04 Hydrocodone/Acetaminophen (*Crx) 5-325 Mg Tablet PO 1 tab Q6H PRN Administration Pain Albuterol 1 puff 10/16/25 13:54 Albuterol Sulfate (*Sp) Aerosol 1 Puff INHALATION TIDRT PRN Shortness Of Breath Amitriptyline HCl 25 mg 10/16/25 21:00 10/18/25 21:05 Amitriptyline Hcl 25 Mg Tablet PO 25 mg QHS BRYON Administration Buspirone HCl 10 mg 10/19/25 09:25 10/19/25 11:35 Buspirone Hcl 10 Mg Tablet PO 10 mg Q8HR BRYON Administration Chlordiazepoxide HCl 25 mg 10/15/25 18:07 10/18/25 21:04 Chlordiazepoxide (*Crx) 25 Mg Capsule PO 25 mg Q6H PRN Administration Withdrawal Citalopram Hydrobromide 10 mg 10/17/25 09:00 10/19/25 10:06 Citalopram Hydrobromide 10 Mg Tablet PO 10 mg QAM BRYON Administration Diazepam 5 mg 10/19/25 11:32 Diazepam Inj (*Crx) 10 Mg/2 Ml Syringe IV PUSH TID PRN Agitation Duloxetine HCl 30 mg 10/16/25 21:00 10/19/25 10:02 Duloxetine Hcl 30 Mg Capsule.Dr PO 30 mg Q12HR BRYON Administration Folic Acid 1 mg 10/16/25 09:00 10/19/25 10:02 Folic Acid 1 Mg Tablet PO 1 mg DAILY BRYON Administration Thiamine HCl 250 mg/ Sodium 102.5 mls @ 205 mls/hr 10/18/25 09:00 10/19/25 10:05 Chloride IVPB 10/22/25 09:29 205 mls/hr DAILY BRYON Administration Levothyroxine Sodium 50 mcg 10/17/25 06:30 10/19/25 06:51 Levothyroxine Sodium 50 Mcg Tablet PO 50 mcg DAILY@0630 BRYON Administration Lisinopril 20 mg 10/17/25 09:00 10/19/25 10:13 Lisinopril 20 Mg Tablet PO 20 mg DAILY BRYON Administration Multivitamins/Calcium 1 tablet 10/15/25 11:50 10/19/25 10:06 Therapeutic Multivitamins/Minerals Tab (*Bkc) PO 1 tablet DAILY BRYON Administration Nicotine 1 patch 10/18/25 09:00 10/19/25 10:05 Nicotine (*Pbkc) 21 Mg Patch TRANSDERM 1 patch DAILY BRYON Administration Pantoprazole Sodium 40 mg 10/16/25 21:00 10/19/25 10:07 Pantoprazole 40 Mg Tablet PO 40 mg Q12HR BRYON Administration Polysaccharide Iron Complex 150 mg 10/17/25 12:00 10/18/25 13:40 Polysaccharide Iron Complex 150 Mg Capsule PO 150 mg DAILY@1200 BRYON Administration Pregabalin 200 mg 10/19/25 21:00 Pregabalin (*Crx) 50 Mg Capsule PO Q12HR BRYON Radiology Results: ITS Impressions Head CT 10/14/25 18:44 IMPRESSION: 1. Limited noncontrast CT head shows no acute findings. Chest X-Ray 10/15/25 07:50 IMPRESSION: 1. Prominent bibasilar parenchymal markings may represent mild vascular congestion or atypical inflammatory/infectious process. Labs Labs: Laboratory Results - last 24 hr 10/19/25 05:15 WBC 6.8 RBC 4.27 L Hgb 11.3 L Hct 35.9 L MCV 84.1 MCH 26.5 MCHC 31.5 L RDW 17.5 H Plt Count 216 MPV 11.4 H Immature Gran % (Auto) 0.3 Neut % (Auto) 50.9 Lymph % (Auto) 36.7 [place] % (Auto) 8.4 Eos % (Auto) 3.1 Baso % (Auto) 0.6 Lymph # (Auto) 2.50 [place] # (Auto) 0.6 Eos # (Auto) 0.2 Baso # (Auto) 0.0 Abs Immat Gran (auto) 0.02 Absolute Neuts (auto) 3.5 Absolute Nucleated RBC 0.000 Nucleated RBC % 0.0 Sodium 136 L Potassium 3.8 Chloride 103 Carbon Dioxide 27 Anion Gap 6 BUN 20 Creatinine 0.88 Estim Creat Clear Calc 88 Estimated GFR > 60 Glucose 95 Calcium 9.3 Total Bilirubin 0.4 AST 23 ALT 14 Alkaline Phosphatase 98 Total Protein 6.8 Albumin 3.9 Quality VTE Prophylaxis VTE prophylaxis: mechanical ordered
[2025-10-19 14:00] VITALS: BP 125/71; PULSE 71; RESP 20; TEMP 36.2; O2SAT 96
[2025-10-19 20:00] VITALS: PULSE 71; RESP 20; O2SAT 96
[2025-10-19] MEDS: AMITRIPTYLINE HCL 25 MG TABLET PO (21:23)
[2025-10-19 22:00] VITALS: BP 127/95; PULSE 73; RESP 20; TEMP 36.8; O2SAT 99
[2025-10-20] MEDS: diazePAM INJ (*CRX) 10 MG/2 ML SYRINGE 5 MG IV PUSH (00:35)
[2025-10-20] MEDS: HYDROcodone/acetaminophen (*CRX) 5-325 MG TABLET 1 TAB PO ×2 (00:35→14:29)
[2025-10-20] MEDS: chlordiazePOXIDE (*CRX) 25 MG CAPSULE PO (04:15)
[2025-10-20 04:29] VITALS: BP 113/74; PULSE 92; RESP 20; TEMP 36.6; O2SAT 96
[2025-10-20] MEDS: LEVOTHYROXINE SODIUM 50 MCG TABLET PO (05:49)
[2025-10-20 06:47] LABS: Hematocrit 39.6 % (42.0-52.0); Hemoglobin 12.8 g/dL (14.0-18.0); Immature Granulocyte Percent A 0.3 % (0-0.5); Lymphocytes Absolute Auto 3.18 K/mm3 (0.9-3.2); Mean Corpuscular HGB Conc 32.3 g/dl (32-36); Mean Corpuscular Hemoglobin 26.8 pg (26-34); Mean Corpuscular Volume 83.0 fl (80-100); Nucleated Red Blood Cells Absolute Auto 0.000 K/mm3 (0.0-0.012); Nucleated Red Blood Cells Perc 0.0 % (0.0-0.2); Platelet Count Result 267 k/mm3 (150-375); Red Blood Count 4.77 M/mm3 (4.6-6.20); White Blood Count 9.3 K/mm3 (4.5-10.0)
[2025-10-20 07:09] LABS: Alanine Aminotransferase 18 U/L (6-50); Albumin Level 4.6 g/dL (3.5-5.1); Alkaline Phosphatase 105 U/L (38-126); Anion Gap 9 mmol/L (4-12); Aspartate Amino Transferase 26 U/L (17-59); Bilirubin,Total 0.4 mg/dL (0.2-1.3); Blood Urea Nitrogen 20 mg/dL (9-20); Calcium 10.0 mg/dL (8.4-10.2); Carbon Dioxide 27 mmol/L (22-30); Chloride 100 mmol/L (98-107); Estimated CRCL calculation 85 ml/min; Estimated Glomerular Filt Rate > 60; Glucose 104 mg/dL (65-110); Potassium 4.1 mmol/L (3.4-5.0); Sodium 136 mmol/L (137-145); Total Protein 8.2 g/dL (6.3-8.2)
[2025-10-20 08:13] VITALS: O2SAT 97
[2025-10-20] MEDS: PREGABALIN (*CRX) 50 MG CAPSULE 200 MG PO (08:30)
[2025-10-20] MEDS: PANTOPRAZOLE 40 MG TABLET PO (08:30)
[2025-10-20] MEDS: THERAPEUTIC MULTIVITAMINS/MINERALS TAB (*BKC) 1 TABLET PO (08:32)
[2025-10-20] MEDS: FOLIC ACID 1 MG TABLET PO (08:32)
[2025-10-20] MEDS: CITALOPRAM HYDROBROMIDE 10 MG TABLET PO (08:32)
[2025-10-20] MEDS: NICOTINE (*PBKC) 21 MG PATCH 1 PATCH TRANSDERM (08:33)
--- NOTE | 2025-10-20 12:03 | P.DS_ITS ---
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 Status: Acute (2) Acute kidney injury: Code(s): N17.9 - Acute kidney failure, unspecified Status: Acute (3) Altered mental status: Code(s): R41.82 - Altered mental status, unspecified Status: Acute (4) Neuropathy: Code(s): G62.9 - Polyneuropathy, unspecified Status: Acute (5) Tobacco abuse: Code(s): Z72.0 - Tobacco use Status: Chronic (6) Anxiety: Code(s): F41.9 - Anxiety disorder, unspecified Status: Chronic (7) Marijuana use: Code(s): F12.90 - Cannabis use, unspecified, uncomplicated Status: Acute DS: Summary Hospital Course Reason for hospitalization: 50yo male with hx of alcoholism, anxiety, ch liver disease and HTN here for altered mental status. Please see H&P for details. Hospital Course: In the ED, vital signs were stable except BP was soft. CBC, PT/PTT and LFTs were unrevealing. He has ADRIAN with Cr 1.4. B12/folate/TSH were normal. Ammonia <9. UA was clear. UDS was positive for cannabinoids. Alcohol level was negative. Viral respiratory panel was negative. Head CT showing no acute findings. CXR showing prominent bibasilar parenchymal markings c/w mild congestion, atypical infection or inflammation. No cultures drawn. EKG showing NSR, incomplete Rt BBB and possibly old anterior OK with borderline T wave changes. He was treated with IV fluids and renal failure resolved. There was concerns for Wernicke encephalopathy so high-dose thiamine started and Neurology was consulted. His mental status changes resolved. He admitted to feeling confused about his medications and so there was concern that he may have taken too much of his medications. He also uses marijuana so consider mental status changes related to marijuana use. EEG was performed which showed normal record. PT evaluation showing no concerns. Discussed with neurology who felt patient could go home today. Patient is agreeable. His girlfriend has organized his medications in a pill box. Will discharge home back on his home medical regiment since it appears he may have been taking his medications incorrectly. Patient overall did well was able to be discharged 10/20/25. Discharge instructions discussed. Status at Discharge Cognitive/behavioral status at discharge: stable Time Spent with Patient Time attestation: Total time spent providing and/or coordinating discharge services: 35 minutes Time spent: Greater than 30 minutes Exam Narrative: AF 97.9 113/74 92 20 97% ra Gen - NARD Chest - CTA bilaterally, nml RR CV - RRR S1/S2 Abd - Soft, NT/ND, Positive BS Ext - No pedal edema Neuro - Alert and oriented. Nonfocal exam. Psych - Nml mood and affect Skin - Warm and dry DS: Data Data Completed and Pending Labs on day of discharge: Labs from last 24 hours 10/20/25 10/16/25 10/16/25 06:35 05:57 05:13 WBC 9.3 RBC 4.77 Hgb 12.8 L Hct 39.6 L MCV 83.0 MCH 26.8 MCHC 32.3 RDW 17.6 H Plt Count 267 MPV 11.5 H Immature Gran % (Auto) 0.3 Neut % (Auto) 52.5 Lymph % (Auto) 34.1 [place] % (Auto) 10.1 H Eos % (Auto) 2.1 Baso % (Auto) 0.9 Lymph # (Auto) 3.18 [place] # (Auto) 0.9 H Eos # (Auto) 0.2 Baso # (Auto) 0.1 Abs Immat Gran (auto) 0.03 Absolute Neuts (auto) 4.9 Absolute Nucleated RBC 0.000 Nucleated RBC % 0.0 Sodium 136 L Potassium 4.1 Chloride 100 Carbon Dioxide 27 Anion Gap 9 BUN 20 Creatinine 0.91 Estim Creat Clear Calc 85 Estimated GFR > 60 Glucose 104 Calcium 10.0 Total Bilirubin 0.4 AST 26 ALT 18 Alkaline Phosphatase 105 Total Protein 8.2 Albumin 4.6 [id number] 1.9 U Free [place] Light Ch 8.07 U Free Lambda Light Ch 1.78 U Free [place]/Lambda 4.53 Discharge Plan Discharge Attending physician on discharge: Agustin Lopez Consulting providers: Cb Knowles Discharging Clinician: Agustin Lopez Anticipated Discharge Date/Time: 10/20/25 12:27 Patient Disposition: Home Activity: no driving Diet: regular Discharge Instructions: No driving until seen by your doctor Take precautions to avoid falls. Rise slowly from a lying or sitting position. Pause before standing or walking. Contact your doctor or call 911 and come to the Emergency Room if you are feeling more confused or other worrisome symptoms. Avoid NSAIDs (ibuprofen, naproxen, Aleve). Tylenol is safe to take. Follow-up with your primary care provider in 1-2 weeks. Please call for appointment. Follow-up with Neurology in 4-6 weeks. Please call for an appointment. Thank you for using [facility] for your health care needs. Patient Instructions: Antibiotic Form Patient Language: Serbian Stand Alone Forms: General Discharge Information Follow-up/Referrals: Gilbert Gambino MD [Primary Care Provider, Family Practice] - Call for Appointment Cb Knowles MD [Physician, Neurology] - Call for Appointment Discharge Medications: Continued omeprazole 20 mg capsule,delayed release(DR/EC) 20 mg PO BID Qty: 30 0RF lisinopril 20 mg tablet 20 mg PO DAILY Patient Comments: Patient reports he has not been taking it as he should amitriptyline 25 mg tablet 25 mg PO QHS albuterol 90 mcg/actuation Aerosol 90 mcg INHALATION TID PRN (Reason: Shortness Of Breath) folic acid 1 mg tablet 1 mg PO DAILY levothyroxine 50 mcg tablet 50 mcg PO DAILY thiamine HCl (vitamin B1) [Vitamin B-1] 100 mg Tablet 100 mg PO QAM 30 Days Qty: 30 1RF citalopram [Celexa] 20 mg Tablet 10 mg PO QAM 30 Days Qty: 15 1RF duloxetine [Cymbalta] 30 mg Capsule,Delayed Release(Dr/Ec) 30 mg PO Q12HR 30 Days Qty: 60 1RF multivitamin Tablet 1 tablet PO DAILY Qty: 30 1RF pregabalin [Lyrica] 75 mg Capsule 200 mg PO Q12H buspirone 7.5 mg tablet 7.5 mg PO BID hydrocodone-acetaminophen 5-325 mg tablet 1 tablet PO Q8H PRN (Reason: pain) Qty: 7 0RF polysaccharide iron complex 150 mg iron Capsule 150 mg PO DAILY@0800 Qty: 30 0RF vitamin B complex [Vitamins B Complex] Capsule 1 cap PO QAM Qty: 90 0RF Discontinued bisacodyl [Laxative (bisacodyl)] 5 mg Tablet,Delayed Release (Dr/Ec) 5 mg PO QAM 30 Days Qty: 30 0RF Date of admission: 10/17/25 15:01 Primary Care Provider: Gilbert Gambino Admitting Provider: Daina Galicia Attending physician on admission: Daina Galicia Condition: Stable Hospitalist MIPS Heart Failure (Exclusion) Patient has history of Heart Transplant or Left Ventricular Assistive Device?: No IF YES, STOP HERE Heart Failure (Qualifier) Patient has current or prior documentation of LVEF less than or equal to 40%, or mod/servere depressed LVSF?: No IF NO, STOP HERE
[2025-10-20 14:00] VITALS: BP 108/84; PULSE 110; RESP 20; TEMP 37.1; O2SAT 100
[2025-10-20 16:08] LABS: Albumin, U 30.6 % (.); Alpha-1-Globulin, U 2.7 % (.); Alpha-2-Globulin, U 11.3 % (.); Beta Globulin, U 33.1 % (.); Gamma Globulin, U 22.3 % (.)
--- NOTE | 2025-10-26 13:04 | PC.NURSE ---
Urine IF negative. Dr. Lopez aware.
== END 2025-10-20 14:35 | disposition home or self-care (01) | DRG 775 ==
LOC: ANHED 19:13 → ANH3MEDSUR 10-15 01:32
PROVIDERS: Admitting Provider Internal Medicine; Emergency Provider Emergency Medicine; PCP Family Medicine; Visit Provider Internal Medicine
DX: F10.96 Alcohol use, unspecified with alcohol-induced persisting amnestic disorder (principal); N17.9 Acute kidney failure, unspecified; I10 Essential (primary) hypertension; K70.9 Alcoholic liver disease, unspecified; E87.1 Hypo-osmolality and hyponatremia; K76.0 Fatty (change of) liver, not elsewhere classified; J45.909 Unspecified asthma, uncomplicated; R27.0 Ataxia, unspecified; G62.9 Polyneuropathy, unspecified; F41.9 Anxiety disorder, unspecified; F17.210 Nicotine dependence, cigarettes, uncomplicated; Z20.822 Contact with and (suspected) exposure to COVID-19; Z98.1 Arthrodesis status
CPT/HCPCS: 36415; 70450; 71045; 80051; 80053; 80307; 81003; 82077; 82140; 82232; 82340; 82570; 82607; 82746; 82784; 82948; 83605; 84156; 84166; 84443; 85025; 85027; 85610; 85730; 86335; 87637; 93005; 95816; 96125; 96361; 96365; 96366; 96374; 96375; 96376; 97161; 97162; 97165; 99285; A9270; G0378; G0379; J3360; J3411; J7030